=== PATIENT | female | born 1980 | race Caucasian/White ===

== ENCOUNTER → 2018-05-17 | Outpatient (CLI) | payer OTHER ==
--- NOTE | 2018-05-17 20:07 | CONS ---
CONSULTATION DATE OF SERVICE: 05/17/2018 This patient is a 37-year-old lady who has been [facility] for obstructive sleep apnea-hypopnea syndrome. HISTORY OF PRESENT ILLNESS/SLEEP-WAKE EVALUATION: Patient was diagnosed with obstructive sleep apnea about 15 years ago. At that time she was started on treatment with CPAP, but when she moved to [place] from [place] she had to turn in her CPAP unit. At present her sleep schedule on weekdays is from 11 p.m. until 6 a.m. and on weekends from midnight until 7 or 8 a.m. She does have problem with falling asleep. She has a TV set in the bedroom. She usually sleeps on the side position with snoring and multiple awakenings from sleep, up to 5 times, with up to 5 episodes of nocturia. She wakes up with a dry mouth, panic attacks, heartburn, gasping for air, restless legs, sweating, sleeptalking, episodes of choking. In the morning she wakes up tired, has difficulties paying attention, falling asleep during the day, worrying about her sleep. She has problems with concentration, irritability, depression, anxiety, claustrophobia. [place] Sleepiness Scale is significantly increased to 16. No history of hypnagogic hallucinations, sleep paralysis or cataplexy. PAST MEDICAL HISTORY: Positive for: 1. Three heart attacks. 2. Hypertension. 3. Diabetes. 4. in the past. 5. Iron deficiency anemia. 6. Asthma. 7. Hyperlipidemia. 8. Depression. 9. Anxiety. 10.Schizophrenia. 11.Bipolar, type I. 12.Ovarian cyst. PAST SURGICAL HISTORY: 1. Cholecystectomy. 2. Right knee surgery. 3. section. MEDICATIONS: 1. Glimepiride. 2. Clonidine. 3. Montelukast. 4. Ferrous sulfate. 5. Isosorbide. 6. Atorvastatin. 7. Nifedipine. 8. Clopidogrel. 9. Carvedilol. 10.Spironolactone. 11.Ventolin inhaler. 12.Irbesartan. 13.Aripiprazole. 14.Citalopram. 15.Prilosec. SOCIAL HISTORY: Positive for smoking for about 6 months; quit 8 years ago. Alcohol consumption none. FAMILY HISTORY: Hypertension, heart problems, hyperlipidemia, asthma, lung problems, sleep apnea, snoring, headaches, cancer, insomnia, acid reflux, ulcers, diabetes, anemia, mental illness, restless legs. REVIEW OF SYSTEMS: Multiple awakenings from sleep, sleepiness during the day. PHYSICAL EXAMINATION: GENERAL: A pleasant lady without distress. VITAL SIGNS: BP on the right arm 177/110, on the left arm 167/103, HR 76, RR 16, height 5 feet 1 inch, weight 221 pounds, body mass index 41.7. Temperature 98.6, oxygen saturation at room air 98%. HEENT: PERRLA, EOMI. Evaluation of oropharynx showed tongue protrudes midline. Low position of soft palate. Mallampati III. NECK: Supple. No JVD. Thyroid is not palpable. Wide neck; 18 inches in circumference. LUNGS: Clear to percussion and to auscultation. Good air exchange. No wheezing or rhonchi. HEART: S1, S2 regular. No murmurs, gallops or rubs. ABDOMEN: Obese. EXTREMITIES: No clubbing or cyanosis. SNAGGER: Awake, alert, and oriented X3. Cranial nerves 2 to 7 intact. There is no fasciculation or atrophy. noted. No focal deficits observed. IMPRESSION: 1. Snoring, awakenings with gasping for air and choking, low position of soft palate, wide neck, excessive daytime sleepiness; obstructive sleep apnea-hypopnea syndrome. 2. Obesity; body mass index 41.7. 3. Coronary artery disease, status post myocardial infarction x3. 4. Hypertension. 5. Diabetes mellitus. 6. Iron deficiency anemia. 7. History of in the past. 8. Asthma. 9. Hyperlipidemia. 10.Ovarian cyst on the left side. 11.History of depression. 12.History of anxiety. 13.History of schizophrenia. 14.History of bipolar, type I. 15.Back problem with degenerative disc disease. 16.Status post cholecystectomy. 17.Status post section. 18.Status post right knee surgery in 1997. PLAN: 1. Polysomnography for evaluation of patient's breathing during sleep. 2. CPAP/BiPAP titration if sleep study confirms obstructive sleep apnea-hypopnea syndrome. 3. Preferable position during sleep on the side. 4. No driving if patient feels any sleepiness. 5. I will see patient for follow up visit to explain results of testing and following plan. Thank you very much for referring this patient for consultation. Sincerely, Jean Marie Patricio MD, PhD, FAASM Diplomat of [employer] [employer] [employer] Set O Type Operator of [facility] [place] MMODL / CHERYL: [id number] /
== END | disposition home or self-care (01) ==
LOC: SLEEP 15:08
PROVIDERS: ATTEND Internal Medicine
DX: G47.33 Obstructive sleep apnea (adult) (pediatric) (principal); E66.9 Obesity, unspecified; I25.10 Atherosclerotic heart disease of native coronary artery without angina pectoris; I10 Essential (primary) hypertension; I50.9 Heart failure, unspecified; E11.9 Type 2 diabetes mellitus without complications; J45.909 Unspecified asthma, uncomplicated; E78.5 Hyperlipidemia, unspecified; F41.9 Anxiety disorder, unspecified; F32.9 Major depressive disorder, single episode, unspecified; F20.9 Schizophrenia, unspecified; I25.2 Old myocardial infarction; N83.202 Unspecified ovarian cyst, left side; F31.9 Bipolar disorder, unspecified; M54.89 Other dorsalgia; Z90.89 Acquired absence of other organs; Z98.890 Other specified postprocedural states; Z99.89 Dependence on other enabling machines and devices; Z79.01 Long term (current) use of anticoagulants; Z79.899 Other long term (current) drug therapy; Z87.891 Personal history of nicotine dependence
CPT/HCPCS: 99211

== ENCOUNTER → 2018-07-30 | Outpatient (CLI) | payer OTHER ==
--- NOTE | 2018-07-31 14:45 | MM ---
Reason for exam: screening (asymptomatic). History: Patient history of other cancer. Family history of breast cancer in maternal grandmother and breast cancer in paternal aunt. Physical Findings: A clinical breast exam by your physician is recommended on an annual basis and results should be correlated with mammographic findings. MG Screening Mammo w CAD Bilateral CC and MLO view(s) were taken. No prior studies available for comparison. The breast tissue is heterogeneously dense. This may lower the sensitivity of mammography. No suspicious abnormality. Medial far posterior depth right asymmetry resolves on XCCL. ASSESSMENT: Benign, BI-RAD 2 RECOMMENDATION: Routine screening mammogram of both breasts in 1 year.
== END | disposition home or self-care (01) ==
LOC: RADMAMWWP 12:34
PROVIDERS: ATTEND Internal Medicine Hematology & Oncology
DX: Z12.31 Encounter for screening mammogram for malignant neoplasm of breast (principal); Z80.3 Family history of malignant neoplasm of breast
CPT/HCPCS: 77067

== ENCOUNTER 2018-08-02 16:51 | Inpatient (IN) | payer OTHER ==
[2018-08-02] MEDS ORDERED: HEPARIN SODIUM,PORCINE 5,000 UNIT/ML 1 ML VIAL IV ONE (17:27)
[2018-08-02] MEDS ORDERED: HEPARIN SODIUM,PORCINE 5,000 UNIT/ML 1 ML VIAL IV PRN (17:27)
[2018-08-02] MEDS ORDERED: ATORVASTATIN 80 MG TAB PO STA (17:28)
[2018-08-02] MEDS ORDERED: CLOPIDOGREL 75 MG TAB PO STA (17:28)
[2018-08-02] MEDS ORDERED: HEPARIN SOD,PORK IN 0.45% NACL 25,000 UNIT in 0.45% NACL 1 250ML.BAG IV SCH (17:30)
[2018-08-02 17:44] LABS: Basophils % (A) 0 %; Eosinophils # (A) 0.1 k/uL (0-0.7); Eosinophils % (A) 1 %; HCT 36.6 % (34.0-46.0); HGB 13.1 gm/dL (11.4-16.0); Lymphocytes # (A) 1.4 k/uL (1.0-4.8); Lymphocytes % (A) 15 %; MCHC 35.8 g/dL (31.0-37.0); MCV 89.4 fL (80.0-100.0); Mean Platelet Volume 7.4; Monocytes # (A) 0.4 k/uL (0-1.0); Monocytes % (A) 4 %; Neutrophils # (A) 7.7 k/uL (1.3-7.7); Neutrophils % (A) 78 %; Platelet Count 183 k/uL (150-450); RBC 4.09 m/uL (3.80-5.40); WBC 9.8 k/uL (3.8-10.6)
[2018-08-02] MEDS ORDERED: NITROGLYCERIN OINT 1 INCH/GM PACKET TOPICAL STA (17:46)
--- NOTE | 2018-08-02 17:46 | ED ---
General Adult HPI - General Chief complaint: Chest Pain Stated complaint: chest pain Time Seen by Provider: 08/02/18 16:52 Source: patient, EMS Mode of arrival: EMS Limitations: no limitations - History of Present Illness Initial comments: Dictation was produced using [employer] dictation software. please excuse any grammatical, word or spelling errors. Chief Complaint: 37-year-old field past medical history of leukemia, diabetes, coronary artery disease and asthma presents with chest pain. History of Present Illness: Patient is a 37-year-old female with multiple comorbidities presents today with chest pain that started yesterday. She states that the chest pain is a pressure-like sensation with ratio radiation down the left upper extremity. She tried taking some Tylenol with no resolution of symptoms. She is a history of myocardial infarction. Her last [place] was in 1998. She denies any history of cardiac stents. She does report diaphoresis and nausea. Denies any cough and constitutional symptoms. Patient hasn't been noncompliant with her medications refilled today. The ROS documented in this emergency department record has been reviewed and confirmed by me. Those systems with pertinent positive or negative responses have been documented in the HPI. All other systems are other negative and/or noncontributory. PHYSICAL EXAM: General Impression: Alert and oriented x3, acute distress secondary to pain HEENT: Normocephalic atraumatic, extra-ocular movements intact, pupils equal and reactive to light bilaterally, mucous membranes moist. Cardiovascular: Heart regular rate and rhythm, S1&S2 audible, no murmurs, rubs or gallops Chest: Lungs clear to auscultation bilaterally, no rhonchi, no wheeze, no rales Abdomen: Bowel sounds present, abdomen soft, non-tender, non-distended, no organ omegaly Musculoskeletal: Pulses present and equal in all extremities, no peripheral edema Motor: no focal deficits noted Neurological: CN II-XII grossly intact, no focal motor or sensory deficits noted Skin: Intact with no visualized rashes ED course: 37-year-old female with chief complaint of chest pain and she does have a history of myocardial infarction coronary artery disease. Last [place] was in 1998 at [facility]. Works having had multiple cardiac catheterizations. Vital signs upon arrival are within acceptable limits. EKG is concerning for acute myocardial infarction. Code STEMI was activated. She was evaluated at bedside by Dr. Everett. Patient given heparin bolus and started on an infusion. She is given 300 mg of Plavix because she has an ALLERGY to aspirin. Cardiology plan was to take patient to cardiac [facility] for urgent cardiac catheterization. EKG interpretation: Ventricular rate 88, normal sinus rhythm, AZ interval 114, QS 86, QTC 522. No AZ prolongation, prolonged QT, ST elevations in inferior leads with Versed with depressions in the high lateral leads. Consistent with acute WV - Related Data Home Medications Medication Instructions Recorded Confirmed Albuterol Inhaler [Ventolin Hfa 1 - 2 puff INHALATION RT-QID PRN 07/11/18 08/02/18 Inhaler] Alogliptin Benzoate [Alogliptin] 25 mg PO DAILY 07/11/18 08/02/18 Atorvastatin [Lipitor] 40 mg PO HS 07/11/18 08/02/18 Carvedilol 25 mg PO BID 07/11/18 08/02/18 Clopidogrel [Plavix] 75 mg PO DAILY 07/11/18 08/02/18 Escitalopram [Lexapro] 10 mg PO DAILY 07/11/18 08/02/18 Ferrous Sulfate [Iron] 325 mg PO DAILY 07/11/18 08/02/18 Irbesartan 300 mg PO DAILY@1700 07/11/18 08/02/18 Isosorbide Mononitrate [Isosorbide 30 mg PO DAILY 07/11/18 08/02/18 Mononitrate ER] Montelukast [Singulair] 10 mg PO HS 07/11/18 08/02/18 NIFEdipine [NIFEdipine ER] 30 mg PO HS 07/11/18 08/02/18 Omeprazole [PriLOSEC] 20 mg PO BID 07/11/18 08/02/18 ARIPiprazole [Abilify] 5 mg PO HS 08/02/18 08/02/18 Ergocalciferol (Vitamin D2) 50,000 unit PO Q7D 08/02/18 08/02/18 [Vitamin D2] Pioglitazone HCl [Actos] 15 mg PO DAILY 08/02/18 08/02/18 Triamterene-Hctz 37.5-25Mg 1 cap PO DAILY 08/02/18 08/02/18 [Dyazide 37.5-25 Capsule] cloNIDine HCL [Catapres] 0.2 mg PO TID 08/02/18 08/02/18 metFORMIN HCL [Glucophage] 1,000 mg PO BID 08/02/18 08/02/18 Allergies Allergy/AdvReac Type Severity Reaction Status Date / Time cephalexin [From Keflex] AdvReac Rash/Hives Verified 08/02/18 17:11 Iodine and Iodide Containing AdvReac Rash/Hives Verified 08/02/18 17:11 Produc Penicillins AdvReac Rash/Hives Verified 08/02/18 17:11 tramadol AdvReac Rash/Hives Verified 08/02/18 17:11 Review of Systems ROS Statement: Those systems with pertinent positive or pertinent negative responses have been documented in the HPI. ROS Other: All systems not noted in ROS Statement are negative. Past Medical History Past Medical History: Asthma, Coronary Artery Disease (CAD), Diabetes Mellitus, GERD/Reflux, Hyperlipidemia, Hypertension History of Any Multi-Drug Resistant Organisms: None Reported Past Surgical History: Section, Joint Replacement Past Anesthesia/Blood Transfusion Reactions: No Reported Reaction Past Psychological History: Anxiety, Bipolar, Depression, Schizophrenia Smoking Status: Former smoker General Exam Limitations: no limitations Course Vital Signs 08/02/18 08/02/18 08/02/18 16:56 17:00 17:02 Temperature 98.2 F Pulse Rate 80 76 Pulse Rate [ 89 Electronic Scale Assembler And Tester ] Respiratory 16 18 Rate Blood Pressure 161/99 184/110 O2 Sat by Pulse 97 97 Oximetry Medical Decision Making - Lab Data Result diagrams: 08/02/18 17:25 08/02/18 17:25 Lab Results 08/02/18 08/02/18 08/02/18 Range/Units 17:25 17:25 17:25 WBC 9.8 (3.8-10.6) k/uL RBC 4.09 (3.80-5.40) m/uL Hgb 13.1 (11.4-16.0) gm/dL Hct 36.6 (34.0-46.0) % MCV 89.4 (80.0-100.0) fL MCH 32.0 (25.0-35.0) pg MCHC 35.8 (31.0-37.0) g/dL RDW 14.0 (11.5-15.5) % Plt Count 183 (150-450) k/uL Neutrophils % 78 % Lymphocytes % 15 % Monocytes % 4 % Eosinophils % 1 % Basophils % 0 % Neutrophils # 7.7 (1.3-7.7) k/uL Lymphocytes # 1.4 (1.0-4.8) k/uL Monocytes # 0.4 (0-1.0) k/uL Eosinophils # 0.1 (0-0.7) k/uL Basophils # 0.0 (0-0.2) k/uL PT 10.1 (9.0-12.0) sec INR 0.9 (<1.2) APTT 22.8 (22.0-30.0) sec Sodium 137 (137-145) mmol/L Potassium 4.1 (3.5-5.1) mmol/L Chloride 99 (98-107) mmol/L Carbon Dioxide 26 (22-30) mmol/L Anion Gap 12 mmol/L BUN 19 H (7-17) mg/dL Creatinine 0.82 (0.52-1.04) mg/dL Est GFR (CKD-EPI)AfAm >90 (>60 ml/min/1.73 sqM) Est GFR (CKD-EPI)NonAf >90 (>60 ml/min/1.73 sqM) Glucose 227 H (74-99) mg/dL Calcium 9.7 (8.4-10.2) mg/dL Total Bilirubin 0.5 (0.2-1.3) mg/dL AST 94 H (14-36) U/L ALT 58 H (9-52) U/L Alkaline Phosphatase 66 (38-126) U/L Total Protein 7.0 (6.3-8.2) g/dL Albumin 4.3 (3.5-5.0) g/dL Disposition Clinical Impression: STEMI (ST elevation myocardial infarction) Disposition: ADMITTED IP TO THIS HOSP Condition: Critical Referrals: Odell Sena MD [Primary Care Provider] - 1-2 days Decision Time: 17:58
[2018-08-02 17:48] LABS: ALT 58 U/L (9-52); AST 94 U/L (14-36); Albumin 4.3 g/dL (3.5-5.0); Alkaline Phosphatase 66 U/L (38-126); Anion Gap 12 mmol/L; Blood Urea Nitrogen 19 mg/dL (7-17); Calcium 9.7 mg/dL (8.4-10.2); Carbon Dioxide 26 mmol/L (22-30); Chloride 99 mmol/L (98-107); Glucose 227 mg/dL (74-99); Potassium 4.1 mmol/L (3.5-5.1); Sodium 137 mmol/L (137-145); Total Bilirubin 0.5 mg/dL (0.2-1.3)
[2018-08-02 17:56] LABS: INR 0.9 (<1.2); Partial Thromboplastin Time 22.8 sec (22.0-30.0); Prothrombin Time 10.1 sec (9.0-12.0)
[2018-08-02] MEDS ORDERED: NALOXONE 0.4 MG/ML 1 ML VIAL IV PRN (17:56)
[2018-08-02] MEDS ORDERED: LIDOCAINE 1% INJ 10MG/ML (20 ML MDV) ONE (18:03)
[2018-08-02] MEDS ORDERED: VERAPAMIL 2.5 MG/ML 2 ML AMP ONE (18:03)
[2018-08-02] MEDS ORDERED: methylPREDNISolone SOD SUCCI 125 MG/2 ML VIAL ONE (18:03)
[2018-08-02] MEDS ORDERED: diphenhydrAMINE 50 MG/ML 1 ML VIAL ONE (18:03)
[2018-08-02] MEDS ORDERED: HEPARIN SODIUM 1,000 UN/ML (10ML VL) ONE (18:03)
[2018-08-02] MEDS ORDERED: fentaNYL (PF) 50 MCG/ML 2 ML AMP ONE (18:03)
[2018-08-02] MEDS ORDERED: SODIUM CHLORIDE 0.9% 1,000 ML IV ONE (18:06)
[2018-08-02] MEDS ORDERED: CLOPIDOGREL 75 MG TAB ONE (18:11)
[2018-08-02] MEDS ORDERED: methylPREDNISolone SOD SUCCI 125 MG/2 ML VIAL IV ONE (18:13)
[2018-08-02] MEDS ORDERED: fentaNYL (PF) 50 MCG/ML 2 ML AMP IVP ONE (18:13)
[2018-08-02 18:14] LABS: Creatine Kinase MB 14.4 ng/mL (0.0-2.4)
[2018-08-02] MEDS ORDERED: CLOPIDOGREL 75 MG TAB PO ONE (18:14)
[2018-08-02] MEDS ORDERED: LIDOCAINE 1% INJ 10MG/ML (20 ML MDV) SQ ONE (18:14)
[2018-08-02] MEDS ORDERED: fentaNYL (PF) 50 MCG/ML 2 ML AMP IV ONE (18:14)
[2018-08-02] MEDS ORDERED: VERAPAMIL SYRINGE (5 MG/10 ML) INTRAARTER ONE (18:16)
[2018-08-02 18:21] LABS: Troponin I 11.6 ng/mL (0.000-0.034)
[2018-08-02] MEDS ORDERED: BIVALIRUDIN BOLUS 250 MG/50 ML IV ONE (18:23)
[2018-08-02] MEDS ORDERED: BIVALIRUDIN 250 MG in SODIUM CHLORIDE 0.9% 50 ML IV ONE ×2 (18:23→18:49)
[2018-08-02] MEDS ORDERED: NITROGLYCERIN SL TABS 0.4 MG TAB SUBLINGUAL ONE ×2 (18:27→18:28)
[2018-08-02] MEDS ORDERED: NITROGLYCERIN 1000MCG/10ML SYRINGE INTRACORON ONE (18:30)
[2018-08-02] MEDS ORDERED: ASPIRIN 81 MG PO ONE (18:37)
[2018-08-02] MEDS ORDERED: IOPAMIDOL-370 125ML BTL INJ ONE (18:37)
[2018-08-02] MEDS ORDERED: ASPIRIN 81 MG ONE (18:37)
--- NOTE | 2018-08-02 18:38 | XR ---
EXAMINATION TYPE: XR chest 1V DATE OF EXAM: 08/02/2018 COMPARISON: NONE HISTORY: Chest pain TECHNIQUE: Single frontal view of the chest is obtained. FINDINGS: There is no heart failure nor confluent pneumonic infiltrate. There is coarse density in t he right lower lobe. IMPRESSION: Minimal infiltrate right lower lobe. No heart failure.
[2018-08-02] MEDS ORDERED: IOPAMIDOL-370 100ML BTL INJ ONE ×2 (18:47→18:58)
[2018-08-02] MEDS ORDERED: ATROPINE SULFATE 0.1 MG/ML 10ML SYRINGE IV PRN (19:23)
[2018-08-02] MEDS ORDERED: RX INFO: IV CONTRAST WAS GIVEN 1 EACH MISC MISCELLANE PRN (19:23)
[2018-08-02] MEDS ORDERED: ZOLPIDEM 5 MG TAB PO PRN (19:23)
[2018-08-02] MEDS ORDERED: MAG HYDROX/AL HYDROX/SIMETH 30 ML CUP PO PRN (19:23)
[2018-08-02] MEDS ORDERED: NITROGLYCERIN SL TABS 0.4 MG TAB SUBLINGUAL PRN (19:23)
[2018-08-02] MEDS ORDERED: SODIUM CHLORIDE 0.9% 1,000 ML IV SCH (19:30)
[2018-08-02 19:42] LABS: Glucose,Whole Blood 215 mg/dL (75-99)
[2018-08-02] MEDS: MONTELUKAST 10 MG TAB PO SCH (21:43)
[2018-08-02] MEDS: ARIPiprazole 5 MG TAB PO SCH (21:43)
[2018-08-02] MEDS: PANTOPRAZOLE 40 MG TABLET PO SCH (21:43)
[2018-08-02] MEDS: NIFEdipine XL 30 MG TAB.ER.24 PO SCH (21:43)
[2018-08-02] MEDS: CARVEDILOL 12.5 MG TAB PO SCH (21:48)
[2018-08-02] MEDS: cloNIDine HCL 0.2 MG TAB PO SCH (22:30)
[2018-08-02] MEDS: hydrALAZINE HCL 25 MG TAB PO SCH (22:30)
--- NOTE | 2018-08-02 22:34 | CONS ---
CONSULTATION ATTENDING DOCTOR: Dr. Quintanilla HISTORY OF PRESENT ILLNESS: Mrs. Franklin is a 37-year-old female with known history of hypertension, hyperlipidemia, diabetes mellitus, who presented to the emergency room with symptoms of chest discomfort. Her discomfort started yesterday and persisted. Subsequently to that, she was scheduled to undergo a sleep study today and while there she complained of the chest pain and was referred to the emergency room. In the emergency room she was found to have a T-wave inversion in the anterolateral leads with mild ST elevation in lead 3. The patient has underwent cardiac catheterization in November 2016 in [facility] and at that time had nonobstructive disease. She had no pain until yesterday. She has no dizziness or palpitation. No syncope. No PND nor orthopnea. She has no peripheral edema. She has been followed on a regular basis by Dr. Davila. She has a history of hypertension, hyperlipidemia, and diabetes. She has stopped smoking over 8 years ago her. MEDICATION: Her medications at home include Glucophage 1 gram twice a day, Catapres 0.2 mg 3 times a day, Dyazide once a day, Actos 15 mg daily, Prilosec, nifedipine 30 mg daily, Singulair 10 mg daily, isosorbide mononitrate 30 mg daily, Avapro 300 mg daily, iron, Lexapro 10 mg daily, vitamin D, Plavix 75 mg daily, carvedilol 25 mg twice a day, Lipitor 40 mg daily Ventolin and Abilify. REVIEW OF SYSTEMS: RESPIRATORY system: She has dyspnea on exertion. No recent wheezing. She has mild cough. GI system: No recent GI bleeding. No peptic ulcer disease. system: No dysuria or hematuria. NERVOUS SYSTEM: No stroke or seizure. PHYSICAL EXAMINATION: A 37-year-old female, alert, oriented, in no apparent distress. Blood pressure running in the 160-200 with a heart rate in the 80s and 90s. HEAD: Normocephalic. Eyes sclerae anicteric. NECK: Good upstroke. No bruit. No jugular venous distention. LUNGS: Clear to auscultation. HEART: Regular rhythm S1, S2. No S3 with a systolic murmur. No diastolic murmur. No rub. ABDOMEN: Soft, obese, nontender. Positive bowel sounds. No megaly. EXTREMITIES: No edema. Intact distal pulses. LAB DATA: Lab data revealed a troponin of 11.6, blood sugar 227, BUN and creatinine 19 and 0.82. AST of 94, ALT of 58, hemoglobin of 13.1, potassium 4.1. EKG revealed sinus mechanism with a T-wave inversion in the anterolateral leads with [address]-segment elevation in Lead 3. Chest x-ray shows questionable infiltrate. IMPRESSION: 1. Acute myocardial infarction in a patient with multiple coronary risk factors and mild nonobstructive coronary disease in November 2016. 2. Hypertension. 3. Hyperlipidemia. 4. Diabetes mellitus. RECOMMENDATION: In view of findings and presentation, recommend proceeding with coronary angiography. The procedure as well as risks and complications were discussed with the patient who is in full understanding and agreement. [email or web address] / IJN: [id number] /
--- NOTE | 2018-08-02 22:37 | CC ---
CARDIAC CATHETERIZATION REPORT HISTORY: Mrs. Franklin is a 37-year-old female with known history of hypertension, hyperlipidemia, diabetes mellitus, who presented with symptoms of chest discomfort and EKG changes. In view of that, recommendation made regarding cardiac catheterization. The procedure as well as risks and complication were discussed with the patient who is in full understanding and agreement. PROCEDURE: Patient was brought to the mine laborer in a fasting semisedated state, after receiving fentanyl and Benadryl and achieving moderate conscious sedated state. Using Xylocaine anesthesia and Seldinger technique a 6-Kittitian sheath was introduced in the right radial artery. Selective right and left coronary angiography performed using 5-Kittitian 3 and half bend right Romelia catheter and a 6-Kittitian 3 and half bend FR guiding catheter. Images of the coronary arteries were obtained. Following that, angioplasty and stenting was performed. Following that a 5-Kittitian tight pigtail catheter was introduced in the left ventricle and a 30 degree KAY view of the left ventricle was obtained. Following that, catheter and sheath were removed. Hemostasis was obtained with deployment of a TR band. There was no immediate complication. Patient is returned to her room in stable condition. Of note, the patient received Angiomax per protocol as well as oral loading dose of clopidogrel. FINDINGS: LEFT MAIN: This is a short size vessel bifurcating left circumflex, left anterior descending artery, left main coronary artery has no evidence of high-grade stenosis. LEFT ANTERIOR DESCENDING ARTERY: This is a large-sized vessel reaching towards the apex with a wraparound apex segment. In the proximal segment of the LAD at the takeoff of the first diagonal branch, there is a 30% plaque. The ostium of the diagonal branch has a 99% stenosis with another plaque of about 80% in the mid segment. Beyond that, the vessel is not very large in caliber. The LAD in the mid segment has a 99% stenosis. In the distal segment, diffuse intimal disease of 30-40 percent. LEFT CIRCUMFLEX: This is a nondominant vessel, large in caliber giving rise to 3 obtuse marginal branches. The first obtuse marginal branch has a 70% plaque at the bifurcation of the second and third obtuse marginal branch there is 95% stenosis. The rest of the vessel has no high-grade stenosis. RIGHT CORONARY ARTERY : This is a large dominant vessel bifurcating into PDA and posterolateral segment and branches. The right coronary artery in mid segment has a 20% plaque. The rest of the vessel has no high-grade stenosis. LEFT VENTRICULOGRAM: Left ventriculogram was performed in 30 degree KAY view and revealed severe hypokinesis. The ejection fraction is estimated at 45%. There was arrhythmia induced mitral regurgitation. HEMODYNAMICS: There was no gradient across the aortic valve. The left ventricle end-diastolic pressure was 20 to 24 mmHg. CONCLUSION: 1. Critical stenosis involving the mid LAD. 2. Significant disease in the ostium of the first diagonal branch. 3. Severe disease in the distal left circumflex with significant disease in the first obtuse marginal branch. 4. Mild disease in the right coronary artery. 5. Moderate to severely impaired left ventricular systolic function. RECOMMENDATIONS: In view of findings and anatomy, I have recommend proceeding with angioplasty and stenting. The procedures as well as risks and complication were discussed with the patient who is in full understanding and agreement. URBANO / CHERYL: [id number] /
--- NOTE | 2018-08-02 22:42 | PTCA ---
PERCUTANEOUSTRANS CORORONARY ANGIOGRAPHY Mrs. Franklin is a 37-year-old female with a known history of hypertension, hyperlipidemia and diabetes mellitus who presented with symptoms of chest discomfort and EKG changes consistent with an acute myocardial infarction. She underwent cardiac catheterization and was found to have critical stenosis involving the LAD and left circumflex. In view of that, recommendation was made regarding angioplasty and stenting. The procedure, its risks and complication were discussed with the patient, who was in full understanding and agreement. PROCEDURE DESCRIPTION: Using the 6-Kittitian FL3.5 guiding catheter and after obtaining images of the LAD, a 0.014 balanced medium-weight J-wire was advanced across the lesion and positioned distal in the LAD. Subsequently a 2.5 x 12 mm Trek balloon was advanced and one inflation at 8 atmospheres was done. Following that an Averill catheter was advanced and one run was done. Following that the balloon was removed and a 3.0x 23 mm Xience Anu stent was deployed and postdilated at 16 atmospheres. After the last inflation, after appropriate wait, the balloon and the guidewire were withdrawn back into the guiding catheter. Images were obtained and repeated. Those images reveal stable successful stenting. At that point, the wire was introduced in the distal left circumflex and a 2.5 x 12 mm balloon was advanced and one inflation was done at 8 atmospheres. Following that, the balloon was removed and a 2.75 x 15 mm Xience Anu stent was deployed and post dilated at 16 atmospheres. After the last inflation, after appropriate wait, the balloon and the guidewire were withdrawn back into the guiding catheter. Images were obtained and repeated. Those images revealed stable images. The importance of dual antiplatelet treatment was discussed with the patient, who is in full understanding and agreement. She will be treated medically at this point in regard to her first obtuse marginal branch and diagonal branch lesions. Duration of procedure was 52 minutes. MMODL / IJN: [id number] / MTDShivani
[2018-08-03 07:09] LABS: Glucose,Whole Blood 384 mg/dL (75-99)
[2018-08-03 07:37] LABS: Anion Gap 14 mmol/L; Blood Urea Nitrogen 21 mg/dL (7-17); Calcium 9.5 mg/dL (8.4-10.2); Carbon Dioxide 20 mmol/L (22-30); Chloride 102 mmol/L (98-107); Cholesterol 151 mg/dL (<200); Glucose 361 mg/dL (74-99); HDL Cholesterol 41 mg/dL (40-60); LDL Cholesterol,Calculated 86 mg/dL (0-99); Potassium 4.4 mmol/L (3.5-5.1); Sodium 136 mmol/L (137-145); Triglycerides 121 mg/dL (<150)
[2018-08-03] MEDS: INSULIN ASPART (NovoLOG) 100 UNIT/ML VIAL SQ SCH ×4 (07:41→21:09)
--- NOTE | 2018-08-03 08:25 | PN ---
PROGRESS NOTE Mrs. Franklin is a 37-year-old female with a history of hypertension, hyperlipidemia, and diabetes mellitus who presented with symptoms of chest discomfort, underwent cardiac catheterization and was found to have a subtotally occluded mid LAD, severe stenosis in the ostium of the first diagonal branch as well as severe stenosis in the distal left circumflex and moderate significant disease in the first obtuse marginal branch. She underwent stenting of her LAD and her left circumflex. She is doing well this morning. She has no chest pain. Hemodynamically, she is stable. She is denying any chest pain. No dizziness. No palpitation. She denies any nausea or vomiting. She continues to be at this time on aspirin 81 mg daily, Lipitor 80 mg daily, carvedilol 25 mg twice a day, Catapres 0.2 mg 3 times a day, Plavix 75 mg daily, hydralazine 25 mg 3 times a day, isosorbide mononitrate 30 mg daily, Tradjenta, Cozaar 100 mg daily, Singulair 10 mg daily, nifedipine 30 mg daily, Protonix, Actos 15 mg daily, and Dyazide. PHYSICAL EXAMINATION: Blood pressure 127/60 with the heart rate in the 90s. LUNGS: Clear. HEART: Regular rate and rhythm. S1, S2. No S3 with systolic ejection murmur. No diastolic murmur. No rub. ABDOMEN: Soft, nontender. EXTREMITIES: No edema. Right radial pulse intact. LAB DATA: Lab data revealed peak troponin 35.5. Her EKG shows evidence of anterior wall myocardial infarction. IMPRESSION: 1. Status post multivessel angioplasty and stenting in the setting of an acute myocardial infarction. 2. Ischemic cardiomyopathy. 3. Hypertension. 4. Hyperlipidemia. 5. Diabetes mellitus. RECOMMENDATION: From the cardiac standpoint, we will continue present therapy. Increase her level of activity. Obtain echocardiogram with Doppler. If she is stable, she should be able to be transferred to the telemetry floor today. Increase her level of activity and depending on her progress, further recommendation will be made. MMODL / IJN: [id number] /
[2018-08-03] MEDS: CARVEDILOL 12.5 MG TAB PO SCH ×2 (09:22→19:19)
[2018-08-03] MEDS: ISOSORBIDE MONONITRATE ER 30 MG TAB.ER.24H PO SCH (09:22)
[2018-08-03] MEDS: hydrALAZINE HCL 25 MG TAB PO SCH ×3 (09:22→21:09)
[2018-08-03] MEDS: cloNIDine HCL 0.2 MG TAB PO SCH ×3 (09:22→21:09)
[2018-08-03] MEDS: TRIAMTERENE-HCTZ 37.5-25MG 1 EACH CAP PO SCH (09:22)
[2018-08-03] MEDS: PANTOPRAZOLE 40 MG TABLET PO SCH ×2 (09:22→16:41)
[2018-08-03] MEDS: ESCITALOPRAM 10 MG TAB PO SCH (09:22)
[2018-08-03] MEDS: PIOGLITAZONE 15 MG TAB PO SCH (10:09)
[2018-08-03] MEDS: ASPIRIN 81 MG PO SCH (10:10)
[2018-08-03] MEDS: LINAGLIPTIN 5 MG TABLET PO SCH (10:12)
[2018-08-03] MEDS ORDERED: Magnesium Replacement Protocol 1 EACH MISC MISCELLANE PRN (10:24)
--- NOTE | 2018-08-03 10:55 | ECHOF ---
Referral Reason: MEASUREMENTS -------- HEIGHT: 154.9 cm WEIGHT: 106.6 kg BP: 100/66 RVIDd: 1.7 cm (< 3.3) IVSd: 1.5 cm (0.6 - 1.1) LVIDd: 4.1 cm (3.9 - 5.3) LVPWd: 1.6 cm (0.6 - 1.1) IVSs: 2.0 cm LVIDs: 2.9 cm LVPWs: 1.7 cm LAESV Index (A-L): 25.81 ml/m IVSd: 1.6 cm (0.6 - 1.1) LVIDd: 4.4 cm (3.9 - 5.3) LVPWd: 1.8 cm (0.6 - 1.1) IVSs: 1.8 cm LVIDs: 2.9 cm LVPWs: 1.9 cm EDV(Teich): 86 ml ESV(Teich): 33 ml EF(Teich): 62 % %FS: 33 % SV(Teich): 54 ml Ao Diam: 2.7 cm (2.0 - 3.7) AV Cusp: 1.9 cm (1.5 - 2.6) LA Diam: 3.6 cm (2.7 - 3.8) MV EXCURSION: 8.330 mm (> 18.000) MV EF SLOPE: 62 mm/s (70 - 150) EPSS: 0.6 cm MV E Terrell: 0.82 m/s MV DecT: 202 ms MV A Terrell: 0.83 m/s MV E/A Ratio: 0.99 RAP: 5.00 mmHg RVSP: 11.51 mmHg FINDINGS -------- Sinus rhythm. This was a technically difficult study with suboptimal views. The cavity size is decreased. There is severe concentric left ventricular hypertrophy. Overall le ft ventricular systolic function is mildly impaired with, an EF between 45 - 50 %. Apical septum LV wall motion is hypokinetic. [place] Hypokinesis. The right ventricle is normal in size. The global wall thickness of the right ventricle is mildly e nlarged. Normal LA size by volume 22+/-6 ml/m2. The right atrial size is normal. Lumason used Interatrial and interventricular septum intact. The aortic valve is trileaflet and appears structurally normal. There is trace mitral regurgitation. Trace tricuspid regurgitation present. There is no evidence of pulmonary hypertension. The right ventricular systolic pressure, as measured by Doppler, is 11.51mmHg. Pulmonic valve appears structurally normal. The aortic root size is normal. IVC Not well visulized. There is no pericardial effusion. CONCLUSIONS -------- 1. Sinus rhythm. 2. This was a technically difficult study with suboptimal views. 3. The cavity size is decreased. 4. There is severe concentric left ventricular hypertrophy. 5. Overall left ventricular systolic function is mildly impaired with, an EF between 45 - 50 %. 6. Apical septum LV wall motion is hypokinetic. 7. [place] Hypokinesis. 8. The right ventricle is normal in size. 9. The global wall thickness of the right ventricle is mildly enlarged. 10. Normal LA size by volume 22+/-6 ml/m2. 11. The right atrial size is normal. 12. Lumason used 13. Interatrial and interventricular septum intact. 14. The aortic valve is trileaflet and appears structurally normal. 15. There is trace mitral regurgitation. 16. Trace tricuspid regurgitation present. 17. There is no evidence of pulmonary hypertension. 18. The right ventricular systolic pressure, as measured by Doppler, is 11.51mmHg. 19. Pulmonic valve appears structurally normal. 20. The aortic root size is normal. 21. IVC Not well visulized. 22. There is no pericardial effusion. COFFEE BLENDER: Yanira Andrews [facility]
[2018-08-03] MEDS: MAGNESIUM SULFATE-D5W PMX 1 GM in DEXTROSE/WATER 1 100ML.BAG IVPB SCH ×3 (11:16→13:39)
[2018-08-03 12:12] LABS: Glucose,Whole Blood 257 mg/dL (75-99)
[2018-08-03] MEDS: CLOPIDOGREL 75 MG TAB PO SCH (12:23)
[2018-08-03 13:08] VITALS: BMI 44.4
[2018-08-03 17:25] LABS: Glucose,Whole Blood 216 mg/dL (75-99)
[2018-08-03] MEDS: LOSARTAN 50 MG TAB PO SCH (17:27)
--- NOTE | 2018-08-03 20:24 | HP ---
HISTORY AND PHYSICAL CHIEF COMPLAINT: Chest pain, low blood pressure. HISTORY OF PRESENT ILLNESS: This is another admission for this 37-year-old female. She was not feeling well for 2 or 3 days. She went to the sleep lab and they apparently found her blood pressure to be very low and told her to come to the emergency room. According to the emergency room note, she also was having chest discomfort, aching down the left arm and some nausea and diaphoresis. She was found to have acute MD, and was taken to the [facility] and had 2 stents. REVIEW OF SYSTEMS: She has had no focal neurologic deficits, confusion, problems with vision or hearing, cough, hemoptysis, murmurs, rheumatic fever, abdominal pain, nausea, vomiting, hematemesis, melena, hematochezia, jaundice, cirrhosis, renal failure, dysuria, frequency, etc. She is diabetic. Past medical history, family history, and personal and social histories reveal that she is on: 1. Albuterol. 2. Alogliptin. 3. Atorvastatin. 4. Carvedilol. 5. Clopidogrel. 6. Ferrous sulfate. 7. Escitalopram. 8. Irbesartan. 9. Isordil. 10.Montelukast. 11.Nifedipine. 12.Omeprazole. 13.Aripiprazole. 14.Vitamin D. 15.Pioglitazone. 16.Triamterene. 17.Hydrochlorothiazide. 18.Clonidine. 19.Metformin. ALLERGIES: 1. CEPHALOSPORINS. 2. IODINE. 3. PENICILLIN. 4. TRAMADOL. The remainder of her history is unremarkable. Laboratory studies in the ER revealed a blood sugar of 227 and slight elevation of her liver function studies. PHYSICAL EXAMINATION: Blood pressure 161/99 with pulse of 80, respirations 16. She is afebrile. In general she appeared to be heavyset and in no acute distress. Skin color was normal. Skin was warm and dry. Lymph nodes were not enlarged. Head, ears, eyes, nose, mouth and throat were normal. Neck veins could not be assessed. Carotids were normal. Chest was clear. Cardiac exam demonstrated normal sinus rhythm and no murmurs or extra sounds. Abdomen was soft and nontender without masses. Extremities were normal. Neurologically she was intact. She is admitted to the hospital with the diagnoses: 1. Acute myocardial infarction. 2. Coronary artery disease. 3. Previous myocardial infarction. 4. Hypertension. 5. [id number] diabetes mellitus. PLAN: 1. Follow with Cardiology. 2. Ensure adequate diabetic management. 3. Instruct in losing weight and increasing exercise. MMELIZABETHL / IJN: [id number] /
--- NOTE | 2018-08-03 20:32 | PN ---
PROGRESS NOTE DATE OF SERVICE: 08/03/2018 CHIEF COMPLAINT: Status post acute CT. HISTORY OF PRESENT ILLNESS: This lady is doing well. She is up and about and she is not complaining of any chest pain. PHYSICAL EXAMINATION: Her chest is clear. Cardiac exam is normal. Abdomen is soft and nontender. IMPRESSION: 1. Status post acute myocardial infarction. 2. Diabetes mellitus. 3. Hypertension. PLAN: No change in program. Continue to follow with Cardiology. MMODL / IJN: [id number] /
[2018-08-03 21:01] LABS: Glucose,Whole Blood 266 mg/dL (75-99)
[2018-08-03] MEDS: ATORVASTATIN 80 MG TAB PO SCH (21:10)
[2018-08-03] MEDS: NIFEdipine XL 30 MG TAB.ER.24 PO SCH (21:10)
[2018-08-03] MEDS: MONTELUKAST 10 MG TAB PO SCH (21:10)
[2018-08-03] MEDS: ARIPiprazole 5 MG TAB PO SCH (21:54)
[2018-08-04] MEDS: CARVEDILOL 12.5 MG TAB PO SCH ×2 (06:10→17:55)
[2018-08-04 06:11] LABS: Glucose,Whole Blood 392 mg/dL (75-99)
[2018-08-04] MEDS: PANTOPRAZOLE 40 MG TABLET PO SCH ×2 (06:11→17:55)
[2018-08-04] MEDS: INSULIN ASPART (NovoLOG) 100 UNIT/ML VIAL SQ SCH ×4 (06:33→21:55)
[2018-08-04 08:07] LABS: Calcium 9.1 mg/dL (8.4-10.2); Magnesium 1.8 mg/dL (1.6-2.3); Potassium 3.8 mmol/L (3.5-5.1)
[2018-08-04] MEDS: ESCITALOPRAM 10 MG TAB PO SCH (08:50)
[2018-08-04] MEDS: CLOPIDOGREL 75 MG TAB PO SCH (08:50)
[2018-08-04] MEDS: LINAGLIPTIN 5 MG TABLET PO SCH (08:50)
[2018-08-04] MEDS: PIOGLITAZONE 15 MG TAB PO SCH (08:50)
[2018-08-04] MEDS: TRIAMTERENE-HCTZ 37.5-25MG 1 EACH CAP PO SCH (08:51)
[2018-08-04] MEDS: hydrALAZINE HCL 25 MG TAB PO SCH ×3 (08:51→21:54)
[2018-08-04] MEDS: ISOSORBIDE MONONITRATE ER 30 MG TAB.ER.24H PO SCH (08:52)
[2018-08-04] MEDS: ASPIRIN 81 MG PO SCH (09:00)
[2018-08-04] MEDS ORDERED: cloNIDine HCL 0.1 MG TAB PO SCH ×2 (09:00→21:00)
[2018-08-04 11:54] LABS: Glucose,Whole Blood 252 mg/dL (75-99)
--- NOTE | 2018-08-04 14:59 | PN ---
PROGRESS NOTE Mrs. Franklin is a 37-year-old female who presented with a myocardial infarction, underwent stenting of the LAD and the left circumflex. She is feeling well this morning. Her breathing is stable. She denies any chest pain. No dizziness. No palpitation. She denies any nausea. She is in sinus mechanism. Her echocardiogram revealed ejection fraction 45% to 50%. She continues to be at this time on aspirin once a day, Lipitor 80 mg daily, Coreg 25 mg twice a day, clonidine 0.1 mg 3 times a day, Plavix 75 mg daily, hydralazine 25 mg 3 times a day, isosorbide mononitrate 30 mg daily, Cozaar 100 mg daily and nifedipine 30 mg daily, in addition to Dyazide. PHYSICAL EXAMINATION: Blood pressure 111/58 with a heart rate in the 80s. LUNGS: Clear. HEART: Regular rate and rhythm S1, S2. No S3. No rub appreciated. ABDOMEN: Soft, nontender. EXTREMITIES: No edema. LAB DATA: Revealed BUN and creatinine 34 and 1.13, potassium 3.8. IMPRESSION: 1. Status post myocardial infarction with multivessel stenting. 2. Ischemic cardiomyopathy. 3. Hypertension. 4. Hyperlipidemia. 5. Diabetes mellitus. 6. Worsening renal function. RECOMMENDATION: I will decrease the dose of her clonidine and follow her blood pressure and renal function. If they remain stable, I would expect she should be able to be discharged home tomorrow and follow up as an outpatient with Dr. Davila. MMELIZABETHL / SHERIFN: [id number] /
[2018-08-04] MEDS: LOSARTAN 50 MG TAB PO SCH (16:14)
[2018-08-04 17:03] LABS: Glucose,Whole Blood 254 mg/dL (75-99)
--- NOTE | 2018-08-04 19:57 | PN ---
PROGRESS NOTE CHIEF COMPLAINT: Acute [place]. HISTORY OF PRESENT ILLNESS: This lady is doing well. She is up and about with no problems. She has had no pain, shortness of breath, palpitations, etc. She is doing very well. PHYSICAL EXAM: Chest is clear. Cardiac exam is normal. Abdomen is soft. Extremities are normal. IMPRESSION: 1. Status post acute myocardial infarction. 2. Hypertension which at the present time is slightly low. PLAN: Probably home in the next day or 2. MMODL / IJN: [id number] /
[2018-08-04 21:22] LABS: Glucose,Whole Blood 214 mg/dL (75-99)
[2018-08-04] MEDS: NIFEdipine XL 30 MG TAB.ER.24 PO SCH (21:54)
[2018-08-04] MEDS: ARIPiprazole 5 MG TAB PO SCH (21:54)
[2018-08-04] MEDS: MONTELUKAST 10 MG TAB PO SCH (21:55)
[2018-08-04] MEDS: ATORVASTATIN 80 MG TAB PO SCH (21:55)
[2018-08-05 06:14] LABS: Glucose,Whole Blood 231 mg/dL (75-99)
[2018-08-05] MEDS: CARVEDILOL 12.5 MG TAB PO SCH (06:26)
[2018-08-05] MEDS: INSULIN ASPART (NovoLOG) 100 UNIT/ML VIAL SQ SCH (06:26)
[2018-08-05] MEDS: PANTOPRAZOLE 40 MG TABLET PO SCH (06:27)
[2018-08-05 07:12] LABS: Calcium 9.2 mg/dL (8.4-10.2); Potassium 4.2 mmol/L (3.5-5.1)
[2018-08-05 08:13] VITALS: BP 129/60; PULSE 82; RESP 16; TEMP 97.2
[2018-08-05] MEDS ORDERED: cloNIDine HCL 0.1 MG TAB PO SCH (09:00)
--- NOTE | 2018-08-05 09:04 | PN ---
PROGRESS NOTE Mrs. Franklin 37-year-old female who presented with an acute myocardial infarction, underwent cardiac catheterization, multivessel stenting. She is doing well this morning. Her breathing is stable. She is ambulating without difficulty. She denies any dizziness. No palpitation. She continues to be on aspirin once a day, Lipitor 80 mg daily, Coreg 25 mg twice a day, clonidine 0.1 mg twice a day, Plavix 75 mg daily, hydralazine 25 mg 3 times a day, isosorbide mononitrate 30 mg daily losartan 100 mg daily, nifedipine 30 mg daily, Actos 50 mg daily, triamterene. PHYSICAL EXAMINATION: Blood pressure 129/60 with a heart rate in the 80s. LUNGS: Clear. HEART: Regular rate and rhythm. S1, S2. No S3. No rub appreciated. ABDOMEN: Soft, nontender. Positive bowel sounds. No organomegaly. EXTREMITIES: No edema. Intact distal pulses. LAB DATA: BUN and creatinine 33 and 0.98, potassium 4.2, sodium 132. IMPRESSION: 1. Status post multivessel stenting in the setting of myocardial infarction. 2. Hypertension. 3. Hyperlipidemia. 4. Obesity. RECOMMENDATION: Patient should be able to be discharged home today and followed as an outpatient with Dr. Davila. MMODL / IJN: [id number] /
[2018-08-05] MEDS: ESCITALOPRAM 10 MG TAB PO SCH (09:20)
[2018-08-05] MEDS: ASPIRIN 81 MG PO SCH (09:20)
[2018-08-05] MEDS: CLOPIDOGREL 75 MG TAB PO SCH (09:20)
[2018-08-05] MEDS: TRIAMTERENE-HCTZ 37.5-25MG 1 EACH CAP PO SCH (09:20)
[2018-08-05] MEDS: LINAGLIPTIN 5 MG TABLET PO SCH (09:20)
[2018-08-05] MEDS: hydrALAZINE HCL 25 MG TAB PO SCH (09:20)
[2018-08-05] MEDS: ISOSORBIDE MONONITRATE ER 30 MG TAB.ER.24H PO SCH (09:20)
[2018-08-05] MEDS: PIOGLITAZONE 15 MG TAB PO SCH (09:22)
== END 2018-08-05 10:45 | disposition home or self-care (01) | DRG 247 ==
LOC: EC 16:51 → 2SICU 17:56 → 3SCARD 08-03 20:45
PROVIDERS: ADMIT Family Medicine; ATTEND Family Medicine
PROC: 027135Z Dilation of Coronary Artery, Two Arteries with Two Drug-eluting Intraluminal Devices, Percutaneous Approach (ICD-10-PCS; principal; 2018-08-02 17:51)
PROC: 4A023N7 Measurement of Cardiac Sampling and Pressure, Left Heart, Percutaneous Approach (ICD-10-PCS; 2018-08-02 17:51)
PROC: B2111ZZ Fluoroscopy of Multiple Coronary Arteries using Low Osmolar Contrast (ICD-10-PCS; 2018-08-02 17:51)
PROC: B2151ZZ Fluoroscopy of Left Heart using Low Osmolar Contrast (ICD-10-PCS; 2018-08-02 17:51)
DX: I21.3 ST elevation (STEMI) myocardial infarction of unspecified site (principal); Z68.41 Body mass index [BMI] 40.0-44.9, adult; E11.9 Type 2 diabetes mellitus without complications; I10 Essential (primary) hypertension; E66.9 Obesity, unspecified; E78.5 Hyperlipidemia, unspecified; I25.5 Ischemic cardiomyopathy; K21.9 Gastro-esophageal reflux disease without esophagitis; F41.9 Anxiety disorder, unspecified; I25.10 Atherosclerotic heart disease of native coronary artery without angina pectoris; F31.9 Bipolar disorder, unspecified; Z96.60 Presence of unspecified orthopedic joint implant; Z79.82 Long term (current) use of aspirin; Z79.84 Long term (current) use of oral hypoglycemic drugs; Z79.02 Long term (current) use of antithrombotics/antiplatelets; Z85.6 Personal history of leukemia; Z87.891 Personal history of nicotine dependence; Z88.6 Allergy status to analgesic agent; Z79.899 Other long term (current) drug therapy; Z88.1 Allergy status to other antibiotic agents; Z88.0 Allergy status to penicillin; Z91.041 Radiographic dye allergy status; Z98.891 History of uterine scar from previous surgery
CPT/HCPCS: 36415; 71045; 80048; 80053; 80061; 82550; 82553; 83735; 84100; 84484; 85025; 85347; 85610; 85730; 93005; 93306; 93799; 94760; 96374; 99285; C1874

== ENCOUNTER → 2018-08-02 | Outpatient (CLI) | payer OTHER ==
--- NOTE | 2018-08-02 15:55 | PN ---
PROGRESS NOTE DATE OF SERVICE: 08/02/2018 This patient is a 37-year-old lady who has been followed in [facility] Center for treatment of obstructive sleep apnea-hypopnea syndrome. Recently the patient had a polysomnogram which showed obstructive sleep apnea within mild range with apnea-hypopnea index 5.8. Then patient was started on treatment with Auto PAP with range of the pressure 5 to 12. She started to use her CPAP equipment, and she thinks that she feels better with the CPAP compared to how she slept without it. Since her last visit, the patient developed chest pain on the left side of her heart and the left hand. I checked the patient's CPAP unit. CPAP pressure is in the range of 5 to 12. Average 10.1. Apnea-hypopnea index 1.1 only. Usage is 22/30 nights and /30 nights for more than 4 hours with average usage 3.5 hours. Again, patient's breathing while using the machine is totally normal. MEDICATIONS: 1. Glimepiride. 2. Clonidine. 3. Montelukast. 4. Ferrous sulfate. 5. Isosorbide. 6. Atorvastatin. 7. Nifedipine. 8. Clopidogrel. 9. Carvedilol. 10.Spironolactone. 11.Ventolin. 12.Irbesartan. 13.Aripiprazole. 14.Citalopram. 15.Prilosec. The patient for several days did not take isosorbide and clopidogrel. PHYSICAL EXAMINATION: GENERAL: A pleasant patient without distress. VITAL SIGNS: BP 158/108 on the right arm, retaken 157/104, HR 92, RR 16, temperature 97.8, oxygen saturation at room air 98%. [place]inger Sleepiness Scale of 15. The patient did not sleep well last night. HEENT: ROSA, EOMI. Evaluation of oropharynx showed tongue protrudes midline. Extremely low position of soft palate. Mallampati IV. NECK: Supple. No JVD. Thyroid is not palpable. LUNGS: Clear to percussion and to auscultation. Good air exchange. No wheezing or rhonchi. HEART: S1, S2 regular. No murmurs, gallops or rubs. ABDOMEN: Obese. EXTREMITIES: No clubbing or cyanosis. SENIOR ADVOCATE: Awake, alert, and oriented X3. Cranial nerves 2 to 7 intact. There is no fasciculation or atrophy. noted. No focal deficits observed. IMPRESSION: 1. Coronary artery disease with history of several heart attacks; chest pain since yesterday. 2. Hypertension in the office. Patient did not take several of her medications for several days. 3. Obstructive sleep apnea. Patient started to use CPAP equipment. She sleeps better with CPAP. Apnea-hypopnea index reading from the CPAP unit is normal. 4. Obesity. 5. Depression. 6. Anxiety. 7. Hyperlipidemia. 8. Diabetes mellitus. 9. Bipolar type 1. 10.History of ovarian cyst. 11.Back problem with degenerative disc disease. 12.Status post right knee surgery. 13.History of post-traumatic stress disorder. PLAN: 1. Patient was sent to emergency room for treatment and evaluation of chest pain immediately. 2. She will continue to use her CPAP equipment every night. 3. She should take all her medication on a regular basis. 4. Losing weight. 5. No driving if feeling any sleepiness. Thank you very much for allowing me to participate in the management of your patient. Sincerely, Jean Marie Patricio MD, PhD, FAASM Diplomat of [place] [employer] [place] [employer] Fishing Gear Mechanic of [facility] [place] MMODL / IJN: [id number] /
== END | disposition home or self-care (01) ==
LOC: SLEEP 14:43
PROVIDERS: ATTEND Internal Medicine
DX: G47.33 Obstructive sleep apnea (adult) (pediatric) (principal); E66.9 Obesity, unspecified; R07.9 Chest pain, unspecified; I25.10 Atherosclerotic heart disease of native coronary artery without angina pectoris; I25.2 Old myocardial infarction; I10 Essential (primary) hypertension; F32.9 Major depressive disorder, single episode, unspecified; F41.9 Anxiety disorder, unspecified; E78.5 Hyperlipidemia, unspecified; E11.9 Type 2 diabetes mellitus without complications; M51.36 Other intervertebral disc degeneration, lumbar region; F43.10 Post-traumatic stress disorder, unspecified; Z87.42 Personal history of other diseases of the female genital tract; Z98.890 Other specified postprocedural states; Z79.899 Other long term (current) drug therapy; Z99.89 Dependence on other enabling machines and devices; Z79.84 Long term (current) use of oral hypoglycemic drugs

== ENCOUNTER 2018-12-02 10:42 | Inpatient (IN) | payer OTHER ==
[2018-12-02] MEDS ORDERED: SODIUM CHLORIDE 0.9% 500 ML 500 ML IV ONE (11:11)
--- NOTE | 2018-12-02 11:11 | ED ---
SOB HPI <Anselmo Hodge - Last Filed: 12/02/18 13:41> - General Source: EMS Mode of arrival: EMS Limitations: no limitations <Isadora Moreno - Last Filed: 12/02/18 14:18> - General Chief Complaint: Shortness of Breath Stated Complaint: SOB Time Seen by Provider: 12/02/18 10:59 - History of Present Illness Initial Comments: 38-year-old obese female with significant past medical history including previ ous myocardial infarction with stent placement, diabetes, hypertension, previous smoker, dyslipidemia presented for chief complaint of chest pressure and shortness of breath. Patient states the past week she has had upper respiratory symptoms including cough congestion she states that throughout the week her shortness of breath has been worsening. She states she has been on azithromycin. She states she also has been taking breathing treatments, and attempted to keep her lungs clear. Patient states that this morning her shortness of breath was increasing especially with exertion, and while she was in the shower she began to develop chest pressure. She denies any back pain radiation of the pain neck pain she denies any hemoptysis, history of DVT or pulmonary embolism, unilateral leg swelling, recent surgical procedures or active cancer. Patient states that she has had b/l LE swelling. Patient denies any known aneurysm history. Also of note patient states for the past week she has had pain with inspiration occasional this was more sharp. She states that the chest pressure she has experiencing this morning while the shower was different. Patient was concerned of this chest pressure presents emergency department for evaluation. Patient denies taking nitro. Patient states she took a total of 324 mg of aspirin between her morning dose of 81 mg and 243 mg she was given by EMS. Patient refused nitroglycerin sublingual tablet. Remaining review of systems negative. Upon arrival patient appears stable no signs of acute distress. Nurse at bedside during history taking obtaining blood, oxygen in place. (Isadora Moreno) - Related Data Home Medications Medication Instructions Recorded Confirmed Carvedilol 25 mg PO BID 07/11/18 12/02/18 Ferrous Sulfate [Iron] 325 mg PO DAILY 07/11/18 12/02/18 Irbesartan 300 mg PO DAILY 07/11/18 12/02/18 Isosorbide Mononitrate [Isosorbide 30 mg PO DAILY 07/11/18 12/02/18 Mononitrate ER] Montelukast [Singulair] 10 mg PO HS 07/11/18 12/02/18 NIFEdipine [NIFEdipine ER] 30 mg PO HS 07/11/18 12/02/18 Pioglitazone HCl [Actos] 15 mg PO DAILY 08/02/18 12/02/18 Triamterene-Hctz 37.5-25Mg 1 cap PO DAILY 08/02/18 12/02/18 [Dyazide 37.5-25 Capsule] metFORMIN HCL [Glucophage] 1,000 mg PO BID 08/02/18 12/02/18 Atorvastatin [Lipitor] 40 mg PO HS 12/02/18 12/02/18 Betamethasone Dipropionate 1 applic TOPICAL DAILY 12/02/18 12/02/18 [Diprolene AF 0.05% Cream] Lisinopril [Zestril] 20 mg PO DAILY 12/02/18 12/02/18 Semaglutide [Ozempic] 0.25 mg SQ MO 12/02/18 12/02/18 cloNIDine HCL [Catapres] 0.2 mg PO TID 12/02/18 12/02/18 Previous Rx's Medication Instructions Recorded Aspirin 81 mg PO DAILY chew 08/05/18 hydrALAZINE HCL [Apresoline] 25 mg PO TID #270 tab 08/05/18 Allergies Allergy/AdvReac Type Severity Reaction Status Date / Time cephalexin [From Keflex] AdvReac Rash/Hives Verified 12/02/18 10:56 Iodine and Iodide Containing AdvReac Rash/Hives Verified 12/02/18 10:56 Produc Penicillins AdvReac Rash/Hives Verified 12/02/18 10:56 tramadol AdvReac Rash/Hives Verified 12/02/18 10:56 Review of Systems ROS Other: All systems not noted in ROS Statement are negative. <Anselmo Hodge - Last Filed: 12/02/18 13:41> ROS Other: All systems not noted in ROS Statement are negative. <Isadora Moreno - Last Filed: 12/02/18 14:18> ROS Statement: Those systems with pertinent positive or pertinent negative responses have been documented in the HPI. Past Medical History Past Medical History: Asthma, Coronary Artery Disease (CAD), Diabetes Mellitus, GERD/Reflux, Hyperlipidemia, Hypertension Additional Past Medical History / Comment(s): peptic ulcer, gall stones, kidney stone, childhood lukemia History of Any Multi-Drug Resistant Organisms: None Reported Past Surgical History: Section, Joint Replacement, Tonsillectomy, Tubal Ligation Past Anesthesia/Blood Transfusion Reactions: No Reported Reaction Past Psychological History: Anxiety, Bipolar, Depression, Schizophrenia Smoking Status: Former smoker Past Alcohol Use History: None Reported Past Drug Use History: None Reported - Past Family History Father Family Medical History: Hyperlipidemia, Hypertension Additional Family Medical History / Comment(s): pins in knee, heart stents x 4 <Isadora Moreno - Last Filed: 12/02/18 14:18> General Exam Limitations: no limitations <Isadora Moreno - Last Filed: 12/02/18 14:18> - General Exam Comments Initial Comments: General: The patient is awake and alert, no respiratory distress, nasal cannula in place. Eye: +3 mm pupils are equal, round and reactive to light, extra-ocular movements are intact. No nystagmus. There is normal conjunctiva bilaterally. No signs of icterus. Ears, nose, mouth and throat: There are moist mucous membranes and no oral lesions. Neck: The neck is supple, there is no tenderness or JVD. Cardiovascular: There is a regular rate and rhythm. No obvious murmur, rub or gallop is appreciated. Respiratory: Lungs are clear to auscultation, respirations are non-labored, breath sounds are equal. No wheezes, stridor, rales, or rhonchi. Gastrointestinal: Soft, non-distended, non-tender abdomen without masses or organomegaly noted. There is no rebound or guarding present. Musculoskeletal: Normal ROM, no tenderness. Strength 5/5. Sensation intact. Radial and DP pulses equal bilaterally 2+. Neurological: A&O x 3. CN II-XII intact grossly, There are no obvious motor or sensory deficits. Coordination appears grossly intact. Speech is normal. Skin: Skin is warm and dry and no rashes or lesions are noted. No pitting edmea of the LE b/l, equal, no calf pain to palpation or unilateral swelling, no p alpable masses. Psychiatric: Cooperative, appropriate mood & affect, normal judgment. (Isadora Moreno) Course <Anselmo Hodge - Last Filed: 12/02/18 13:41> Vital Signs 12/02/18 12/02/18 12/02/18 10:55 10:58 11:42 Temperature 98 F Pulse Rate 96 87 Respiratory 20 20 17 Rate Blood Pressure 115/77 103/56 O2 Sat by Pulse 95 94 L Oximetry 12/02/18 12/02/18 12/02/18 11:50 12:00 12:10 Temperature Pulse Rate 85 85 87 Respiratory 17 24 14 Rate Blood Pressure 104/58 104/58 106/55 O2 Sat by Pulse 93 L 94 L 95 Oximetry 12/02/18 12/02/18 12/02/18 12:20 12:30 12:50 Temperature Pulse Rate 87 87 Respiratory 27 H 19 Rate Blood Pressure 113/68 113/68 125/104 O2 Sat by Pulse 94 L 91 L Oximetry 12/02/18 12/02/18 12/02/18 13:00 13:10 13:20 Temperature Pulse Rate 87 89 Respiratory 21 20 Rate Blood Pressure 125/104 116/53 125/82 O2 Sat by Pulse 90 L 92 L Oximetry 12/02/18 12/02/18 12/02/18 13:30 13:40 13:49 Temperature Pulse Rate 90 87 88 Respiratory 20 28 H 16 Rate Blood Pressure 125/82 118/80 106/57 O2 Sat by Pulse 96 94 L 99 Oximetry - Reevaluation(s) Reevaluation #1: 12/02/18 13:42 PA supervision: I proceeded a [id number]-cb-[id number] evaluation the patient did discuss findings with her. I do agree with the assessment and plan I also did discuss case with Dr. Sena. Patient will be admitted with evaluation by cardiology. She does demonstrate elevated troponin. Elevated d-dimer was noted but CAT scan of the chest was negative for pulmonary emboli. (Anselmo Hodge) Medical Decision Making - Lab Data Result diagrams: 12/02/18 11:08 12/02/18 11:08 <Anselmo Hodge - Last Filed: 12/02/18 13:41> - Lab Data Result diagrams: 12/02/18 11:08 12/02/18 11:08 <Isadora Moreno - Last Filed: 12/02/18 14:18> - Medical Decision Making 38-year-old female presented for chief complaint of chest pressure, SOB. Patient states she is in the shower this morning between 8 and 9 AM she developed chest pressure she states she was concerned that this was later myocardial infarction and presents emergency department. Patient given aspirin upon transportation 324 mg in total between her morning dose and EMS. Patient refused nitroglycerin. Patient states the pain has subsided. Patient was given a breathing treatment in the EMS as well. Patient states that she feels that she has better air movement. Lungs are clear to auscultation. There is bilateral nonpitting edema of the lower extremities. There is no calf pain redness or masses. Patient has no specific risk factors for DVT plan wasn't. However patient is on antiplatelet aggregation therapy patient did admit to pleuritic chest pain and d-dimer was obtained at this time. D-dimer returned elevated, CT was obtained revealing no acute pulmonary embolism however very small bilateral pleural effusions. Initial troponin was elevated. Will trend. Concern for non-ST elevation TN. GIven patient risk factors, symptoms with elevated troponin patient was a started on low intensity heparin. Patient agreeable with treatment and admission. Cardiology on urgent consult. Patient transferred to the floor in stable condition. Throughout course the patient's care in the emergency department I discussed findings EKGs and laboratory s rico with attending provider who is agreeable care plan and admission he spoke with the admitting provider Dr. Anthony. (Isadora Moreno) - Lab Data Lab Results 12/02/18 12/02/18 12/02/18 Range/Units 11:08 11:08 11:08 WBC 4.9 (3.8-10.6) k/uL RBC 4.24 (3.80-5.40) m/uL Hgb 12.8 (11.4-16.0) gm/dL Hct 38.6 (34.0-46.0) % MCV 91.1 (80.0-100.0) fL MCH 30.2 (25.0-35.0) pg MCHC 33.1 (31.0-37.0) g/dL RDW 13.0 (11.5-15.5) % Plt Count 206 (150-450) k/uL Neutrophils % 69 % Lymphocytes % 22 % Monocytes % 5 % Eosinophils % 2 % Basophils % 1 % Neutrophils # 3.3 (1.3-7.7) k/uL Lymphocytes # 1.1 (1.0-4.8) k/uL Monocytes # 0.2 (0-1.0) k/uL Eosinophils # 0.1 (0-0.7) k/uL Basophils # 0.0 (0-0.2) k/uL PT 10.3 (9.0-12.0) sec INR 1.0 (<1.2) APTT 22.1 (22.0-30.0) sec D-Dimer 1.48 H (<0.60) mg/L FEU Sodium 135 L (137-145) mmol/L Potassium 3.9 (3.5-5.1) mmol/L Chloride 102 (98-107) mmol/L Carbon Dioxide 23 (22-30) mmol/L Anion Gap 10 mmol/L BUN 11 (7-17) mg/dL Creatinine 0.76 (0.52-1.04) mg/dL Est GFR (CKD-EPI)AfAm >90 (>60 ml/min/1.73 sqM) Est GFR (CKD-EPI)NonAf >90 (>60 ml/min/1.73 sqM) Glucose 380 H (74-99) mg/dL Calcium 8.6 (8.4-10.2) mg/dL Total Bilirubin 1.0 (0.2-1.3) mg/dL AST 51 H (14-36) U/L ALT 99 H (9-52) U/L Alkaline Phosphatase 66 (38-126) U/L Troponin I (0.000-0.034) ng/mL NT-Pro-B Natriuret Pep pg/mL Total Protein 5.9 L (6.3-8.2) g/dL Albumin 3.5 (3.5-5.0) g/dL 12/02/18 12/02/18 Range/Units 11:08 11:08 WBC (3.8-10.6) k/uL RBC (3.80-5.40) m/uL Hgb (11.4-16.0) gm/dL Hct (34.0-46.0) % MCV (80.0-100.0) fL MCH (25.0-35.0) pg MCHC (31.0-37.0) g/dL RDW (11.5-15.5) % Plt Count (150-450) k/uL Neutrophils % % Lymphocytes % % Monocytes % % Eosinophils % % Basophils % % Neutrophils # (1.3-7.7) k/uL Lymphocytes # (1.0-4.8) k/uL Monocytes # (0-1.0) k/uL Eosinophils # (0-0.7) k/uL Basophils # (0-0.2) k/uL PT (9.0-12.0) sec INR (<1.2) APTT (22.0-30.0) sec D-Dimer (<0.60) mg/L FEU Sodium (137-145) mmol/L Potassium (3.5-5.1) mmol/L Chloride (98-107) mmol/L Carbon Dioxide (22-30) mmol/L Anion Gap mmol/L BUN (7-17) mg/dL Creatinine (0.52-1.04) mg/dL Est GFR (CKD-EPI)AfAm (>60 ml/min/1.73 sqM) Est GFR (CKD-EPI)NonAf (>60 ml/min/1.73 sqM) Glucose (74-99) mg/dL Calcium (8.4-10.2) mg/dL Total Bilirubin (0.2-1.3) mg/dL AST (14-36) U/L ALT (9-52) U/L Alkaline Phosphatase (38-126) U/L Troponin I 0.086 H* (0.000-0.034) ng/mL NT-Pro-B Natriuret Pep 1270 pg/mL Total Protein (6.3-8.2) g/dL Albumin (3.5-5.0) g/dL - EKG Data EKG Comments: Ventricular rate 96 bpm, UT interval 126 most seconds, QRS duration 80 ms, QT/QTC 440/555 ms. There is no T-wave inversions in leads 1 and 2. Prolonged QT. No ST elevation or depression noted. EKG was compared to that of 08/02/2018 with there was acute TN. Appears to be simiar without apparent acute TN. EKG was initally reviewed and interpretted/compared by my attending provider. I also persoanlly interpretted EKG following initial review. Repeat EKG was obtained at 1142. Ventricular rate 87 bpm, UT interval 134 ms, QR worship 84 ms, QT/QTC 458/551. This is normal sinus rhythm with left atrial enlargement. Again redemonstrated T-wave inversions with a prolonged QT. No significant change from previous. We'll continue to monitor. EKG personally interpreted. No ST elevation/depression. (Isadora Moreno) Disposition <Anselmo Hodge - Last Filed: 12/02/18 13:41> Is patient prescribed a controlled substance at d/c from ED?: No Time of Disposition: 11:18 Decision to Admit Reason: Admit from EC Decision Time: 11:18 <Isadora Moreno - Last Filed: 12/02/18 14:18> Clinical Impression: NSTEMI (non-ST elevated myocardial infarction), Elevated troponin, SOB (shortness of breath) Disposition: ADMITTED IP TO THIS HOSP Condition: Stable
[2018-12-02 11:37] LABS: ALT 99 U/L (9-52); AST 51 U/L (14-36); African American GFR (CKD) >90 (>60 ml/min/1.73 sqM); Albumin 3.5 g/dL (3.5-5.0); Alkaline Phosphatase 66 U/L (38-126); Anion Gap 10 mmol/L; Blood Urea Nitrogen 11 mg/dL (7-17); Calcium 8.6 mg/dL (8.4-10.2); Carbon Dioxide 23 mmol/L (22-30); Chloride 102 mmol/L (98-107); Glucose 380 mg/dL (74-99); Potassium 3.9 mmol/L (3.5-5.1); Sodium 135 mmol/L (137-145); Total Protein 5.9 g/dL (6.3-8.2)
--- NOTE | 2018-12-02 11:40 | XR ---
EXAMINATION TYPE: XR chest 2V DATE OF EXAM: 12/02/2018 HISTORY: difficulty breathing. REFERENCE: Previous study dated 08/02/2018. FINDINGS: The heart is enlarged. There is increased density at the lung bases which may represent mikal e atelectasis or early pneumonia. There is blunting of both CP angles and I could not exclude small e ffusions. IMPRESSION: 1. CARDIOMEGALY. 2. ATELECTASIS VERSUS CONSOLIDATION, BOTH LUNG BASES. 3. I CANNOT EXCLUDE SMALL, BILATERAL EFFUSIONS.
[2018-12-02 11:41] LABS: Partial Thromboplastin Time 22.1 sec (22.0-30.0); Prothrombin Time 10.3 sec (9.0-12.0)
[2018-12-02 11:43] LABS: Basophils % (A) 1 %; Eosinophils # (A) 0.1 k/uL (0-0.7); Eosinophils % (A) 2 %; HCT 38.6 % (34.0-46.0); HGB 12.8 gm/dL (11.4-16.0); Lymphocytes # (A) 1.1 k/uL (1.0-4.8); Lymphocytes % (A) 22 %; MCH 30.2 pg (25.0-35.0); MCHC 33.1 g/dL (31.0-37.0); MCV 91.1 fL (80.0-100.0); Mean Platelet Volume 7.8; Monocytes # (A) 0.2 k/uL (0-1.0); Monocytes % (A) 5 %; Neutrophils # (A) 3.3 k/uL (1.3-7.7); Neutrophils % (A) 69 %; Platelet Count 206 k/uL (150-450); RBC 4.24 m/uL (3.80-5.40); WBC 4.9 k/uL (3.8-10.6)
[2018-12-02 11:44] LABS: D-Dimer 1.48 mg/L FEU (<0.60)
[2018-12-02] MEDS ORDERED: FAMOTIDINE 20 MG/2 ML VIAL IV STA (11:58)
[2018-12-02] MEDS ORDERED: methylPREDNISolone SOD SUCCI 125 MG/2 ML VIAL IV STA (11:58)
[2018-12-02] MEDS ORDERED: diphenhydrAMINE 50 MG/ML 1 ML VIAL IVP STA (11:58)
[2018-12-02] MEDS ORDERED: HEPARIN SODIUM,PORCINE 5,000 UNIT/ML 1 ML VIAL IV PRN (12:17)
[2018-12-02] MEDS ORDERED: HEPARIN SODIUM,PORCINE 5,000 UNIT/ML 1 ML VIAL IV ONE (12:17)
[2018-12-02] MEDS ORDERED: NITROGLYCERIN SL TABS 0.4 MG TAB SUBLINGUAL PRN (12:40)
--- NOTE | 2018-12-02 12:56 | CT ---
EXAMINATION TYPE: CT chest angio for PE DATE OF EXAM: 12/02/2018 COMPARISON: None. HISTORY: SOB CT DLP: 570.5 mGycm Automated exposure control for dose reduction was used. CONTRAST: CT Chest for pulmonary embolism performed with without and with IV Contrast, patient injected with 10 0 ML mL of Isovue 300. FINDINGS: There are small, bilateral effusions. There is patchy groundglass opacity throughout both l ungs. No lobar consolidation is seen. There is no significant axillary adenopathy. There is some shotty mediastinal adenopathy. There is no evidence of pulmonary embolus. The aorta is normal in caliber without evidence of dissection. The heart is mildly enlarged. There is no pericardial fluid. Within the abdomen, there is evidence of splenomegaly with spleen measuring 15 cm. Visualized portion s of the upper abdomen are otherwise unremarkable. There is hypertrophic spondylosis present within the dorsal spine. IMPRESSION: 1. This examination is negative for pulmonary embolus. 2. Mild cardiomegaly. 3. Small, bilateral effusions. 4. Patchy groundglass opacity present bilaterally May reflect alveolitis or atypical pneumonia. 5. Splenomegaly.
[2018-12-02] MEDS: HEPARIN SOD,PORK IN 0.45% NACL 25,000 UNIT in 0.45% NACL 1 250ML.BAG IV SCH (13:15)
[2018-12-02 14:30] LABS: Glucose,Whole Blood 333 mg/dL (75-99)
--- NOTE | 2018-12-02 14:32 | HP ---
HISTORY AND PHYSICAL CHIEF COMPLAINT: Chest pain. HISTORY OF PRESENT ILLNESS: This is another admission for this 38-year-old white female who has multiple problems including coronary artery disease, poorly controlled insulin-dependent diabetes mellitus, hypertension, hyperlipidemia, previous myocardial infarction. She started to develop a cold with slight nasal congestion, scratchy throat and slight cough and then she developed substernal chest discomfort very similar to her cardiac pain. She came in at that time. In the emergency room, she had a slightly elevated troponin and D-dimer. EKG was unchanged. She was taken for a CTA which was negative. REVIEW OF SYSTEMS: She has had no syncope, CVAs, change in vision or hearing, cough, hemoptysis, pleuritic pain, syncope, palpitations, orthopnea, PND, abdominal pain, nausea, vomiting, hematemesis, melena, hematochezia, jaundice, hematuria, frequency, urgency, renal failure, etc. Past medical history, family history, personal and social histories are all otherwise unremarkable or noncontributory to this admission. PHYSICAL EXAM: Temperature 98. Pulse 96, respirations 20 and blood pressure is 115/77. In general, she appeared to be obese and in no acute distress. Skin color is normal. Skin is warm, dry, and she is not diaphoretic. Lymph nodes not enlarged. Head, ears, eyes, nose, mouth, and throat were normal. Chest is clear to auscultation and percussion. Cardiac exam demonstrated sinus rhythm with no murmurs or extra sounds. There was there was an S3 and an S4. Abdomen is soft and nontender without any visceromegaly or masses. Bowel sounds were present. Extremities are normal. Neurological is intact. She is admitted to the hospital with diagnoses: 1. Chest pain. 2. Bronchitis. 3. Coronary artery disease. 4. Previous myocardial infarction. 5. Poorly controlled insulin-dependent diabetes mellitus. 6. Hyperlipidemia. 7. Hypertension. PLAN: 1. Bed rest. 2. IV fluids. 3. Serial EKGs and enzymes. 4. Consult with Cardiology. MMODL / IJN: [id number] /
[2018-12-02 16:48] LABS: Glucose,Whole Blood 411 mg/dL (75-99)
[2018-12-02] MEDS: cloNIDine HCL 0.2 MG TAB PO SCH ×2 (17:36→21:33)
[2018-12-02] MEDS: hydrALAZINE HCL 25 MG TAB PO SCH ×2 (17:36→21:33)
[2018-12-02] MEDS: CARVEDILOL 12.5 MG TAB PO SCH (17:36)
[2018-12-02] MEDS: INSULIN ASPART (NovoLOG) 100 UNIT/ML VIAL SQ SCH ×4 (17:50→21:16)
[2018-12-02 20:14] LABS: Glucose,Whole Blood 431 mg/dL (75-99)
[2018-12-02] MEDS ORDERED: ATORVASTATIN 40 MG TAB PO SCH (21:00)
[2018-12-02] MEDS ORDERED: INSULIN ASPART (NovoLOG) 100 UNIT/ML VIAL SQ SCH (21:00)
[2018-12-02] MEDS ORDERED: NIFEdipine XL 30 MG TAB.ER.24 PO SCH (21:00)
[2018-12-02] MEDS ORDERED: INSULIN ASPART (NovoLOG) 100 UNIT/ML VIAL SQ ONE (21:15)
[2018-12-02 21:31] LABS: Glucose,Whole Blood 527 mg/dL (75-99)
[2018-12-02] MEDS: MONTELUKAST 10 MG TAB PO SCH (21:33)
[2018-12-02] MEDS: INSULIN DETEMIR (LEVEMIR) 100 UNIT/ML SYR SQ SCH (21:34)
[2018-12-03 00:58] LABS: Glucose,Whole Blood 442 mg/dL (75-99)
[2018-12-03 03:52] LABS: Basophils % (A) 0 %; Eosinophils # (A) 0.1 k/uL (0-0.7); Eosinophils % (A) 1 %; HCT 39.1 % (34.0-46.0); HGB 12.9 gm/dL (11.4-16.0); Lymphocytes % (A) 12 %; MCH 30.9 pg (25.0-35.0); MCHC 32.9 g/dL (31.0-37.0); MCV 93.7 fL (80.0-100.0); Mean Platelet Volume 8.2; Monocytes # (A) 0.3 k/uL (0-1.0); Monocytes % (A) 3 %; Neutrophils # (A) 7.3 k/uL (1.3-7.7); Neutrophils % (A) 83 %; Platelet Count 206 k/uL (150-450); Poikilocytosis Slight; RBC 4.17 m/uL (3.80-5.40); RDW 14.2 % (11.5-15.5); WBC 8.8 k/uL (3.8-10.6)
[2018-12-03 04:02] LABS: Cholesterol 183 mg/dL (<200); HDL Cholesterol 35 mg/dL (40-60); LDL Cholesterol,Calculated 103 mg/dL (0-99); Triglycerides 227 mg/dL (<150)
[2018-12-03 05:48] LABS: ALT 87 U/L (9-52); AST 33 U/L (14-36); African American GFR (CKD) >90 (>60 ml/min/1.73 sqM); Albumin 3.4 g/dL (3.5-5.0); Alkaline Phosphatase 74 U/L (38-126); Anion Gap 13 mmol/L; Blood Urea Nitrogen 18 mg/dL (7-17); Carbon Dioxide 17 mmol/L (22-30); Chloride 103 mmol/L (98-107); Glucose 403 mg/dL (74-99); Potassium 4.2 mmol/L (3.5-5.1); Sodium 133 mmol/L (137-145); Total Bilirubin 0.5 mg/dL (0.2-1.3); Total Protein 5.9 g/dL (6.3-8.2)
[2018-12-03 06:09] LABS: Glucose,Whole Blood 303 mg/dL (75-99)
[2018-12-03] MEDS: CARVEDILOL 12.5 MG TAB PO SCH ×2 (06:26→18:14)
[2018-12-03] MEDS: INSULIN ASPART (NovoLOG) 100 UNIT/ML VIAL SQ SCH ×8 (06:26→23:52)
[2018-12-03] MEDS ORDERED: CLOPIDOGREL 75 MG TAB PO STA (08:38)
--- NOTE | 2018-12-03 08:38 | P.CRDCN ---
History of Present Illness Consult date: 12/03/18 Requesting physician: Odell Sena Consult reason: non-Q-wave [place] Chief complaint: Chest pain History of present illness: This is a pleasant 38-year-old female with history of hypertension, hyperlipidemia, diabetes, coronary artery disease for which the patient underwent angioplasty and stenting of the LAD and circumflex artery, patient was also found at that time to have disease in the first obtuse marginal branch and the diagonal branch lesions. This was performed in July of this year in the setting of a myocardial infarction. She also had an echocardiogram with Doppler study performed which revealed an ejection fraction of 45-50% at that time. She presents to the hospital on this occasion with symptoms of midsternal chest pressure. According to the patient, she's been dealing with a cold recently and has felt herself to be much more short of breath than usual. She states she went into the shower, and developed midsternal chest pressure and tightness similar to her presentation with her myocardial infarction. She states she went down in the shower but did not pass out completely. For this reason she came to the emergency room for further evaluation and treatment. Her EKG on presentation here showed a normal sinus rhythm with nonspecific ST-T wave moore ges noted in the lateral leads. Subsequent EKG showed normal sinus rhythm with ST T wave changes noted in the anterior lateral leads. CTA of the chest was negative for any pulmonary embolism, it did show some small bilateral pleural effusions. Chest x-ray showed cardiomegaly, atelectasis versus consolidation, small bilateral effusions. I pressure on arrival here 116/70 with a heart rate of 90, 95% on 2 L of oxygen. White blood cell count 8.8, hemoglobin 12.9, platelet count 206. D-dimer 1.4, sodium 133, potassium 4.2, BUN 18 and creatinine 0.8. Blood sugar on arrival here 527, patient had been given steroids as an outpatient previous to this. Her AST on arrival 51, ALT 99, troponins 0.086, 0.066, 0.054. BNP level 1270. Cholesterol level 183, LDL 103, HDL 35, triglycerides are 227. At the time of my examination this morning, patient is currently chest pain-free, she just feels extremely tired. Past Medical History Past Medical History: Asthma, Coronary Artery Disease (CAD), Diabetes Mellitus, GERD/Reflux, Hyperlipidemia, Hypertension Additional Past Medical History / Comment(s): peptic ulcer, gall stones, kidney stone, childhood lukemia History of Any Multi-Drug Resistant Organisms: None Reported Past Surgical History: Section, Joint Replacement, Tonsillectomy, Tubal Ligation Additional Past Surgical History / Comment(s): 2 stents placed in July Past Anesthesia/Blood Transfusion Reactions: No Reported Reaction Date of Last Stent Placement:: 08/02/18 Past Psychological History: Anxiety, Bipolar, Depression, Schizophrenia Smoking Status: Former smoker Past Alcohol Use History: None Reported Past Drug Use History: None Reported - Past Family History Father Family Medical History: Hyperlipidemia, Hypertension Additional Family Medical History / Comment(s): pins in knee, heart stents x 4 Medications and Allergies Home Medications Medication Instructions Recorded Confirmed Type Carvedilol 25 mg PO BID 07/11/18 12/02/18 History Ferrous Sulfate [Iron] 325 mg PO DAILY 07/11/18 12/02/18 History Irbesartan 300 mg PO DAILY 07/11/18 12/02/18 History Isosorbide Mononitrate [Isosorbide 30 mg PO DAILY 07/11/18 12/02/18 History Mononitrate ER] Montelukast [Singulair] 10 mg PO HS 07/11/18 12/02/18 History NIFEdipine [NIFEdipine ER] 30 mg PO HS 07/11/18 12/02/18 History Pioglitazone HCl [Actos] 15 mg PO DAILY 08/02/18 12/02/18 History Triamterene-Hctz 37.5-25Mg 1 cap PO DAILY 08/02/18 12/02/18 History [Dyazide 37.5-25 Capsule] metFORMIN HCL [Glucophage] 1,000 mg PO BID 08/02/18 12/02/18 History Aspirin 81 mg PO DAILY chew 08/05/18 12/02/18 Rx hydrALAZINE HCL [Apresoline] 25 mg PO TID #270 tab 08/05/18 12/02/18 Rx Atorvastatin [Lipitor] 40 mg PO HS 12/02/18 12/02/18 History Betamethasone Dipropionate 1 applic TOPICAL DAILY 12/02/18 12/02/18 History [Diprolene AF 0.05% Cream] Lisinopril [Zestril] 20 mg PO DAILY 12/02/18 12/02/18 History Semaglutide [Ozempic] 0.25 mg SQ MO 12/02/18 12/02/18 History cloNIDine HCL [Catapres] 0.2 mg PO TID 12/02/18 12/02/18 History Allergies Allergy/AdvReac Type Severity Reaction Status Date / Time cephalexin [From Keflex] AdvReac Rash/Hives Verified 12/02/18 10:56 Iodine and Iodide Containing AdvReac Rash/Hives Verified 12/02/18 10:56 Produc Penicillins AdvReac Rash/Hives Verified 12/02/18 10:56 tramadol AdvReac Rash/Hives Verified 12/02/18 10:56 Physical Exam Vitals: Vital Signs Temp Pulse Pulse Resp BP BP Pulse Ox 12/03/18 04:00 97.8 F 86 18 126/86 97 12/03/18 00:00 98.6 F 78 15 136/78 98 12/02/18 20:00 97.5 F L 85 17 119/85 97 12/02/18 17:00 94 18 135/80 97 12/02/18 13:49 88 16 106/57 99 12/02/18 13:40 87 28 H 118/80 94 L 12/02/18 13:30 90 20 125/82 96 12/02/18 13:20 125/82 12/02/18 13:10 89 20 116/53 92 L 12/02/18 13:00 87 21 125/104 90 L 12/02/18 12:50 87 19 125/104 91 L 12/02/18 12:30 113/68 12/02/18 12:20 87 27 H 113/68 94 L 12/02/18 12:10 87 14 106/55 95 12/02/18 12:00 85 24 104/58 94 L 12/02/18 11:50 85 17 104/58 93 L 12/02/18 11:42 87 17 103/56 94 L 12/02/18 10:58 20 12/02/18 10:55 98 F 96 20 115/77 95 Intake and Output 12/02/18 12/03/18 12/03/18 22:59 06:59 14:59 Intake Total 80.333 100.1 Balance 80.333 100.1 Intake: Intake, IV Titration 80.333 100.1 Amount Heparin Sod,Pork in 0.45% 80.333 100.1 NaCl 25,000 unit In 0.45 % NaCl 1 250ml.bag @ 9. 709 UNITS/KG/HR 10 mls/hr IV .Q24H [facility] Rx#: [id number] Other: Voiding Method Toilet Toilet # Voids 2 2 Weight 102.4 kg PHYSICAL EXAMINATION: GENERAL: 38-year-old female in no acute distress at the time of my examination HEENT: Head is atraumatic, normocephalic. Pupils equal, round. Sclera anicteric. Conjunctiva are clear. Mucous membranes of the mouth are moist. Neck is supple. There is no elevated jugular venous pressure. No carotid bruit is heard. HEART EXAMINATION: R S1 and S2 1 systolic murmur is heard CHEST EXAMINATION: Lungs are clear to auscultation with mild diminished air entry to the bases . ABDOMEN: Soft, obese, nontender. Bowel sounds are heard. No organomegaly noted. EXTREMITIES: 2+ peripheral pulses with trace evidence of peripheral edema and no calf tenderness noted. NEUROLOGIC patient is awake, alert and oriented 3 . . Results 12/03/18 03:40 12/03/18 03:40 Cardiac Enzymes 12/02/18 12/02/18 12/02/18 Range/Units 11:08 11:08 16:57 AST 51 H (14-36) U/L Troponin I 0.086 H* 0.066 H* (0.000-0.034) ng/mL 12/02/18 12/03/18 Range/Units 22:28 03:40 AST 33 (14-36) U/L Troponin I 0.054 H* (0.000-0.034) ng/mL Coagulation 12/02/18 12/02/18 12/03/18 Range/Units 11:08 19:28 03:40 PT 10.3 (9.0-12.0) sec APTT 22.1 28.6 32.1 H (22.0-30.0) sec Lipids 12/03/18 Range/Units 03:40 Triglycerides 227 H (<150) mg/dL Cholesterol 183 (<200) mg/dL HDL Cholesterol 35 L (40-60) mg/dL CBC 12/02/18 12/03/18 Range/Units 11:08 03:40 WBC 4.9 8.8 (3.8-10.6) k/uL RBC 4.24 4.17 (3.80-5.40) m/uL Hgb 12.8 12.9 (11.4-16.0) gm/dL Hct 38.6 39.1 (34.0-46.0) % Plt Count 206 206 (150-450) k/uL Comprehensive Metabolic Panel 12/02/18 12/03/18 Range/Units 11:08 03:40 Sodium 135 L 133 L (137-145) mmol/L Potassium 3.9 4.2 (3.5-5.1) mmol/L Chloride 102 103 (98-107) mmol/L Carbon Dioxide 23 17 L (22-30) mmol/L BUN 11 18 H (7-17) mg/dL Creatinine 0.76 0.81 (0.52-1.04) mg/dL Glucose 380 H 403 H (74-99) mg/dL Calcium 8.6 9.0 (8.4-10.2) mg/dL AST 51 H 33 (14-36) U/L ALT 99 H 87 H (9-52) U/L Alkaline Phosphatase 66 74 (38-126) U/L Total Protein 5.9 L 5.9 L (6.3-8.2) g/dL Albumin 3.5 3.4 L (3.5-5.0) g/dL Current Medications Generic Name Dose Route Start Last Admin Trade Name Freq PRN Reason Stop Dose Admin Aspirin 325 mg 12/03/18 09:00 Aspirin PO DAILY [facility] Atorvastatin Calcium 40 mg 12/02/18 21:00 12/02/18 21:33 Lipitor PO 40 mg HS [facility] Administration Betamethasone Dipropionate 1 applic 12/03/18 09:00 Diprolene Af TOPICAL DAILY [facility] Carvedilol 25 mg 12/02/18 17:30 12/03/18 06:26 Coreg PO 25 mg AC-BID [facility] Administration Clonidine 0.2 mg 12/02/18 16:00 12/02/18 21:33 Catapres PO 0.2 mg TID [facility] Administration Ferrous Sulfate 325 mg 12/03/18 09:00 Feosol PO DAILY [facility] Heparin Sodium (Porcine) 0 unit 12/02/18 12:17 09/15/19 21:33 Heparin IV 4,000 unit PER PROTOCOL PRN Administration Low PTT Protocol Hydralazine HCl 25 mg 12/02/18 16:00 12/02/18 21:33 Apresoline PO 25 mg TID [facility] Administration Heparin Sodium/Sodium Chloride 250 mls @ 10 mls/hr 12/02/18 12:30 12/03/18 04:59 25,000 unit/ Sodium Chloride IV 15.53 units/kg/hr .Q24H [facility] 16 mls/hr Titration Protocol 9.709 UNITS/KG/HR Insulin Aspart 0 unit 12/02/18 17:30 12/03/18 06:26 Novolog SQ 9 unit ACHS [facility] Administration Protocol Insulin Aspart 10 unit 12/02/18 17:45 12/03/18 06:58 Novolog SQ Not Given ACHS [facility] Insulin Detemir 30 unit 12/02/18 21:00 12/02/18 21:34 Levemir SQ 30 unit HS [facility] Administration Isosorbide Mononitrate 30 mg 12/03/18 09:00 Imdur PO DAILY [facility] Lisinopril 20 mg 12/03/18 09:00 Zestril PO DAILY [facility] Losartan Potassium 100 mg 12/03/18 09:00 Cozaar PO DAILY [facility] Montelukast Sodium 10 mg 12/02/18 21:00 12/02/18 21:33 Singulair PO 10 mg HS [facility] Administration Nifedipine 30 mg 12/02/18 21:00 12/02/18 21:33 Procardia Xl PO 30 mg HS [facility] Administration Nitroglycerin 0.4 mg 12/02/18 12:40 Nitrostat SUBLINGUAL Q5M PRN Chest Pain Ozempic (Semaglutide 0.25 mg 12/03/18 09:00 ) 2 Mg/1.5 Ml SQ MO [facility] Pioglitazone HCl 15 mg 12/03/18 09:00 Actos PO DAILY [facility] Triamterene/HCTZ 1 each 12/03/18 09:00 Dyazide PO DAILY [facility] Intake and Output 12/02/18 12/03/18 12/03/18 22:59 06:59 14:59 Intake Total 80.333 100.1 Balance 80.333 100.1 Intake: Intake, IV Titration 80.333 100.1 Amount Heparin Sod,Pork in 0.45% 80.333 100.1 NaCl 25,000 unit In 0.45 % NaCl 1 250ml.bag @ 9. 709 UNITS/KG/HR 10 mls/hr IV .Q24H [facility] Rx#: [id number] Other: Voiding Method Toilet Toilet # Voids 2 2 Weight 102.4 kg 12/03/18 03:40 12/03/18 03:40 EKG Interpretations (text) EKG shows a normal sinus rhythm with ST-T wave changes noted in the anterior lateral leads Assessment and Plan Plan: Assessment and plan #1 symptoms of exertional shortness of breath with episode of chest pressure and tightness, troponin 0.086, 0.066, 0.054. EKG shows a normal sinus rhythm with anterior lateral ST-T wave changes clinical picture suggesting acute coronary syndrome. #2 known history of coronary artery disease with myocardial infarction in July of this year at which time patient underwent stenting of the LAD and circumflex, patient was also found at that time to have disease in the first OM and diagonal. #3 diabetes #4 hypertension #5 hyperlipidemia #6 prior history of smoking, patient quit smoking 8 years ago #7 obesity #8 recent cold-like symptoms #9 mildly elevated liver functions, could be secondary to mild congestive heart failure #10 mild exacerbation of congestive heart failure, diastolic acute on chronic Plan We will obtain a stat echocardiogram with Doppler study. Upon review of the patient's home medications, it does not appear that the patient was taking any antiplatelet other than aspirin, we will obtain the last progress note from the office. We'll put the patient on Plavix now, continue Lipitor, increasing the dose to 80 mg daily, continue Coreg, patient is also taking lisinopril and losartan, we will discontinue the lisinopril and continue with the losartan and at this time. Discontinue the Procardia, decrease the dose of clonidine, with the intention to ultimately discontinue it. We will also give the patient one time dose of IV Lasix. Patient has been educated regarding cardiac catheterization as well as the risks and benefits, she's been advised to undergo cardiac catheterization this admission. Further recommendations to follow. DNP note has been reviewed, I agree with a documented findings and plan of care. Patient was seen and examined.
[2018-12-03] MEDS ORDERED: ASPIRIN 325 MG TAB PO SCH (09:00)
[2018-12-03] MEDS ORDERED: LISINOPRIL 20 MG TAB PO SCH (09:00)
[2018-12-03] MEDS ORDERED: OZEMPIC 2 MG/1.5 ML SQ SCH ×2 (09:00→18:00)
[2018-12-03] MEDS ORDERED: ASPIRIN 81 MG PO SCH (09:00)
[2018-12-03] MEDS ORDERED: NITROGLYCERIN SL TABS 0.4 MG TAB SUBLINGUAL PRN ×2 (10:07→13:37)
[2018-12-03] MEDS ORDERED: ATORVASTATIN 80 MG TAB PO STA (10:07)
[2018-12-03] MEDS ORDERED: ASPIRIN 325 MG TAB PO STA (10:07)
[2018-12-03] MEDS ORDERED: ALPRAZolam 0.25 MG TAB PO PRN (10:07)
[2018-12-03] MEDS ORDERED: SODIUM CHLORIDE 0.9% 1,000 ML in EMPTY BAG 1 BAG IV ONE (10:07)
[2018-12-03] MEDS ORDERED: ALPRAZolam 0.5 MG TAB PO PRN (10:07)
[2018-12-03] MEDS: FERROUS SULFATE 325 MG TAB PO SCH (10:18)
[2018-12-03] MEDS: cloNIDine HCL 0.2 MG TAB PO SCH ×2 (10:19→23:03)
[2018-12-03] MEDS: hydrALAZINE HCL 25 MG TAB PO SCH ×3 (10:19→23:02)
[2018-12-03] MEDS: LOSARTAN 50 MG TAB PO SCH (10:19)
[2018-12-03] MEDS: ISOSORBIDE MONONITRATE ER 30 MG TAB.ER.24H PO SCH (10:19)
[2018-12-03] MEDS: FUROSEMIDE 10 MG/ML 4 ML VIAL IV STA ×2 (10:19→18:13)
[2018-12-03] MEDS: PIOGLITAZONE 15 MG TAB PO SCH (10:20)
[2018-12-03] MEDS: TRIAMTERENE-HCTZ 37.5-25MG 1 EACH CAP PO SCH (10:20)
--- NOTE | 2018-12-03 10:35 | ECHOF ---
Referral Reason:assess lvf MEASUREMENTS -------- HEIGHT: 157.5 cm WEIGHT: 101.2 kg BP: RVIDd: 2.6 cm (< 3.3) IVSd: 1.5 cm (0.6 - 1.1) LVIDd: 4.6 cm (3.9 - 5.3) LVPWd: 1.7 cm (0.6 - 1.1) IVSs: 2.0 cm LVIDs: 3.7 cm LVPWs: 1.8 cm LAESV Index (A-L): 42.01 ml/m Ao Diam: 2.1 cm (2.0 - 3.7) AV Cusp: 1.5 cm (1.5 - 2.6) LA Diam: 4.4 cm (2.7 - 3.8) MV EXCURSION: 17.007 mm (> 18.000) MV EF SLOPE: 178 mm/s (70 - 150) EPSS: 0.8 cm MV E Terrell: 1.18 m/s MV DecT: 199 ms MV A Terrell: 0.29 m/s MV E/A Ratio: 4.04 RAP: 5.00 mmHg RVSP: 17.61 mmHg FINDINGS -------- Sinus rhythm. This was a technically difficult study with suboptimal views. The left ventricular size is normal. There is moderate concentric left ventricular hypertrophy. O verall left ventricular systolic function is moderately impaired with, an EF between 35 - 40 %. Api kayla anterior LV wall motion is hypokinetic. Apical lateral LV wall motion is hypokinetic. Apica l inferior LV wall motion is hypokinetic. Apical septum LV wall motion is hypokinetic. The right ventricle is normal in size. LA is severely dilated >40 ml/m2 The right atrial size is normal. Lumason used Interatrial and interventricular septum intact. The aortic valve is trileaflet, and appears structurally normal. No aortic stenosis or regurgitation. The mitral valve is normal. Qhoh-mt-mgutuswe mitral regurgitation is present. The tricuspid valve appears structurally normal. Mild tricuspid regurgitation present. Right vent ricular systolic pressure is normal at < 35 mmHg. Trace/mild (physiologic) pulmonic regurgitation. The thrombus is located in the apical portion of the left ventricle. The aortic root size is normal. IVC Not well visulized. There is no pericardial effusion. CONCLUSIONS -------- 1. Sinus rhythm. 2. This was a technically difficult study with suboptimal views. 3. The left ventricular size is normal. 4. There is moderate concentric left ventricular hypertrophy. 5. Overall left ventricular systolic function is moderately impaired with, an EF between 35 - 40 %. 6. Apical anterior LV wall motion is hypokinetic. 7. Apical lateral LV wall motion is hypokinetic. 8. Apical inferior LV wall motion is hypokinetic. 9. Apical septum LV wall motion is hypokinetic. 10. LA is severely dilated >40 ml/m2 11. Lumason used 12. The aortic valve is trileaflet, and appears structurally normal. No aortic stenosis or regurgitat ion. 13. The mitral valve is normal. 14. Usat-tn-ukkvesup mitral regurgitation is present. 15. The tricuspid valve appears structurally normal. 16. Mild tricuspid regurgitation present. 17. Trace/mild (physiologic) pulmonic regurgitation. 18. The thrombus is located in the apical portion of the left ventricle. 19. The aortic root size is normal. 20. IVC Not well visulized. 21. There is no pericardial effusion. BAG MACHINE SET UP OPERATOR: Yanira Andrews RDCS
[2018-12-03] MEDS ORDERED: LIDOCAINE 1% INJ 10MG/ML (20 ML MDV) ONE (12:14)
[2018-12-03] MEDS ORDERED: fentaNYL (PF) 50 MCG/ML 2 ML AMP ONE (12:14)
[2018-12-03] MEDS ORDERED: SODIUM CHLORIDE 0.9% 1,000 ML IV ONE (12:35)
[2018-12-03 12:39] LABS: Glucose,Whole Blood 197 mg/dL (75-99)
[2018-12-03] MEDS ORDERED: VERAPAMIL 2.5 MG/ML 2 ML AMP ONE (12:42)
[2018-12-03] MEDS ORDERED: fentaNYL (PF) 50 MCG/ML 2 ML AMP IVP ONE (12:59)
[2018-12-03] MEDS ORDERED: LIDOCAINE 1% INJ 10MG/ML (20 ML MDV) SQ ONE (13:02)
[2018-12-03] MEDS ORDERED: methylPREDNISolone SOD SUCCI 125 MG/2 ML VIAL ONE (13:03)
[2018-12-03] MEDS ORDERED: diphenhydrAMINE 50 MG/ML 1 ML VIAL ONE (13:03)
[2018-12-03] MEDS ORDERED: diphenhydrAMINE 50 MG/ML 1 ML VIAL IVP ONE (13:06)
[2018-12-03] MEDS ORDERED: methylPREDNISolone SOD SUCCI 125 MG/2 ML VIAL IVP ONE (13:06)
[2018-12-03] MEDS ORDERED: VERAPAMIL SYRINGE (5 MG/10 ML) INTRAARTER ONE (13:07)
[2018-12-03] MEDS ORDERED: CLOPIDOGREL 75 MG TAB ONE (13:21)
[2018-12-03] MEDS ORDERED: BIVALIRUDIN 250 MG in SODIUM CHLORIDE 0.9% 50 ML IV ONE (13:23)
[2018-12-03] MEDS ORDERED: BIVALIRUDIN BOLUS 250 MG/50 ML IV ONE (13:23)
[2018-12-03] MEDS ORDERED: CLOPIDOGREL 75 MG TAB PO ONE (13:24)
[2018-12-03] MEDS ORDERED: IOPAMIDOL-370 125ML BTL INJ ONE (13:31)
[2018-12-03] MEDS ORDERED: ATROPINE SULFATE 0.1 MG/ML 10ML SYRINGE IV PRN (13:37)
[2018-12-03] MEDS ORDERED: ZOLPIDEM 5 MG TAB PO PRN (13:37)
[2018-12-03] MEDS ORDERED: RX INFO: IV CONTRAST WAS GIVEN 1 EACH MISC MISCELLANE PRN (13:37)
[2018-12-03] MEDS ORDERED: MAG HYDROX/AL HYDROX/SIMETH 30 ML CUP PO PRN (13:37)
[2018-12-03] MEDS ORDERED: SODIUM CHLORIDE 0.9% 1,000 ML IV SCH (13:45)
[2018-12-03 15:44] LABS: Hemoglobin A1C 9.6 % (4.0-6.0)
[2018-12-03 17:17] LABS: Glucose,Whole Blood 384 mg/dL (75-99)
[2018-12-03] MEDS: BETAMETHASONE DIPROPIONATE 0.05% CREAM 15 GM TUBE TOPICAL SCH (18:13)
--- NOTE | 2018-12-03 19:44 | PN ---
PROGRESS NOTE CHIEF COMPLAINT: Chest pain. HISTORY OF PRESENT ILLNESS: This lady is doing fairly well. Her sugars are elevated. She is going for cardiac cath today. PHYSICAL EXAM: Her face is flushed. Chest is clear. Cardiac exam is normal. Abdomen is soft, nontender. IMPRESSION: 1. Angina pectoris. 2. Coronary artery disease. 3. Uncontrolled diabetes. PLAN: Cardiac cath today and afterwards get her blood sugars under control before discharge. MMODL / IJN: [id number] /
--- NOTE | 2018-12-03 20:22 | CC ---
CARDIAC CATHETERIZATION REPORT Mrs. Franklin is a 38-year-old female with a known history of coronary artery disease, status post stenting done in July, who presented with symptoms of chest discomfort and mild troponin elevation. In view of that, recommendation was made regarding cardiac catheterization. The procedure, its risks and complications were discussed with the patient, who was in full understanding and agreement. PROCEDURE DESCRIPTION: Patient was brought to the rn labor delivery in a fasting, semi-sedated state after receiving fentanyl and Benadryl and achieving a moderate conscious sedated state. Using Xylocaine anesthesia and Seldinger technique, a 6-Kenyan sheath was introduced in the right radial artery. Selective right and left coronary angiography was performed using 5-Kenyan 3-1/2 bend, right and left Romelia catheters. Multiple views were taken of the coronary arteries, including hemiaxial views. Following that, catheters were removed and images were reviewed. The patient received intra-arterial verapamil. FINDINGS: LEFT MAIN: This is a large-sized vessel bifurcating into left circumflex and left anterior descending artery. Left main coronary artery has no evidence of high-grade stenosis. LEFT ANTERIOR DESCENDING ARTERY: This is a large-sized vessel reaching toward the apex with a wrap around the apex segment. The stented segment is patent. The first diagonal branch is small to moderate and has 99% stenosis at the ostium. The rest of the vessel has intimal disease. The LAD at the takeoff of the diagonal branch has a 20% plaque. In the distal segment of the LAD there is intimal disease of 20% to 30%. LEFT CIRCUMFLEX: This is a large nondominant vessel giving rise to one large obtuse marginal branch that has 3 branches. The stented branch is patent. The first branch has an 80% to 90% stenosis. The rest of the vessel has no high-grade stenosis. There is a plaque at the bifurcation of the third branch in the stented segment. RIGHT CORONARY ARTERY: This is a large dominant vessel bifurcating distally into PDA and posterolateral segment and branches. The right coronary artery proximally has a 20% plaque. The rest of the vessel has no high-grade stenosis. LEFT VENTRICULOGRAM: Left ventriculogram was not performed. CONCLUSION: 1. Patent stent to the LAD and to the obtuse marginal branch. 2. Obstructive disease involving the first branch of the obtuse marginal branch of about 80%. 3. Significant disease in a small diagonal branch. RECOMMENDATIONS: In view of findings and anatomy, I have recommended proceeding with angioplasty and stenting of the obtuse marginal branch. The procedures, its risks and complications were discussed with the patient, who is in full understanding and agreement. MMODL / IJN: [id number] /
--- NOTE | 2018-12-03 20:29 | PTCA ---
PERCUTANEOUSTRANS CORORONARY ANGIOGRAPHY Mrs. Franklin is a 38-year-old female with known history of coronary artery disease and history of hypertension who presented with symptoms of chest discomfort and mild troponin elevation. She underwent cardiac catheterization and was found to have significant stenosis in the first branch of the obtuse marginal branch. In view of that, recommendation was made regarding angioplasty and stenting. The procedure, its risks and complications were discussed with the patient, who was in full understanding and agreement. PROCEDURE DESCRIPTION: A 6-Kazakh FL3.5 guiding catheter was introduced in the system. After cannulating the left main, a 0.014 balanced medium weight J-wire was advanced across the lesion and positioned distally. Subsequently a 2.75 x 15 mm Xience Anu stent was deployed and post-dilated at 16 atmospheres. After the last inflation, after appropriate wait, the balloon and the guidewire were withdrawn back into the guiding catheter. Images were obtained and repeated. Those images reveal stable successful stenting. At that point, the guiding catheter, the balloon and the guidewire were removed. The sheath was removed. Hemostasis was obtained with deployment of a TR band. There was no immediate complication. Patient was returned to her room in stable condition. Of note, the patient had chest discomfort with the inflation that resolved at the end the procedure. She received Angiomax per protocol as well as oral loading dose of clopidogrel. RESULTS: Successful stenting of the first branch of the obtuse marginal branch with reduction of stenosis from 90% to 0%. RECOMMENDATIONS: Patient will be continued on aspirin, Plavix, beta kirsty, statin and KALPANA inhibitor. The importance of dual antiplatelet treatment was discussed with the patient and her family, and they are in full understanding and agreement. I have discussed with her the importance of staying on her Plavix. Duration of procedure was 26 minutes. MMODL / IJN: [id number] /
[2018-12-03] MEDS: HEPARIN SOD,PORK IN 0.45% NACL 25,000 UNIT in 0.45% NACL 1 250ML.BAG IV SCH (20:33)
[2018-12-03] MEDS ORDERED: ATORVASTATIN 80 MG TAB PO SCH (21:00)
[2018-12-03 21:42] LABS: Glucose,Whole Blood >600 mg/dL (75-99)
[2018-12-03 21:42] LABS: Glucose,Whole Blood >600 mg/dL (75-99)
[2018-12-03 22:38] LABS: African American GFR (CKD) 73 (>60 ml/min/1.73 sqM); Anion Gap 15 mmol/L; Blood Urea Nitrogen 28 mg/dL (7-17); Calcium 8.7 mg/dL (8.4-10.2); Carbon Dioxide 21 mmol/L (22-30); Chloride 96 mmol/L (98-107); Potassium 4.4 mmol/L (3.5-5.1); Sodium 132 mmol/L (137-145)
[2018-12-03 22:45] LABS: Glucose 581 mg/dL (74-99)
[2018-12-03] MEDS: MONTELUKAST 10 MG TAB PO SCH (23:02)
[2018-12-03] MEDS: INSULIN DETEMIR (LEVEMIR) 100 UNIT/ML SYR SQ SCH (23:03)
[2018-12-03] MEDS ORDERED: INSULIN ASPART (NovoLOG) 100 UNIT/ML VIAL SQ ONE (23:46)
[2018-12-04 02:38] LABS: Glucose,Whole Blood 417 mg/dL (75-99)
[2018-12-04 06:25] LABS: Basophils % (A) 0 %; Eosinophils % (A) 0 %; HCT 38.7 % (34.0-46.0); HGB 13.4 gm/dL (11.4-16.0); Lymphocytes % (A) 11 %; MCH 32.3 pg (25.0-35.0); MCHC 34.7 g/dL (31.0-37.0); MCV 93.1 fL (80.0-100.0); Mean Platelet Volume 7.9; Monocytes # (A) 0.3 k/uL (0-1.0); Monocytes % (A) 3 %; Neutrophils # (A) 7.4 k/uL (1.3-7.7); Neutrophils % (A) 83 %; Platelet Count 203 k/uL (150-450); RBC 4.16 m/uL (3.80-5.40); RDW 12.9 % (11.5-15.5); WBC 8.9 k/uL (3.8-10.6)
[2018-12-04 06:40] LABS: African American GFR (CKD) >90 (>60 ml/min/1.73 sqM); Anion Gap 10 mmol/L; Blood Urea Nitrogen 26 mg/dL (7-17); Calcium 9.2 mg/dL (8.4-10.2); Carbon Dioxide 23 mmol/L (22-30); Chloride 101 mmol/L (98-107); Glucose 291 mg/dL (74-99); Potassium 4.3 mmol/L (3.5-5.1); Sodium 134 mmol/L (137-145)
[2018-12-04] MEDS: CARVEDILOL 12.5 MG TAB PO SCH ×2 (06:53→17:19)
[2018-12-04 07:53] LABS: Glucose,Whole Blood 311 mg/dL (75-99)
[2018-12-04] MEDS: INSULIN ASPART (NovoLOG) 100 UNIT/ML VIAL SQ SCH ×7 (07:53→20:59)
[2018-12-04] MEDS ORDERED: ASPIRIN 325 MG TAB PO SCH (09:00)
[2018-12-04] MEDS: ISOSORBIDE MONONITRATE ER 30 MG TAB.ER.24H PO SCH (09:44)
[2018-12-04] MEDS: CLOPIDOGREL 75 MG TAB PO SCH (09:44)
[2018-12-04] MEDS: hydrALAZINE HCL 25 MG TAB PO SCH ×3 (09:44→22:15)
[2018-12-04] MEDS: TRIAMTERENE-HCTZ 37.5-25MG 1 EACH CAP PO SCH (09:44)
[2018-12-04] MEDS: PIOGLITAZONE 15 MG TAB PO SCH (09:44)
[2018-12-04] MEDS: FERROUS SULFATE 325 MG TAB PO SCH (09:45)
[2018-12-04] MEDS: ASPIRIN 81 MG PO SCH (09:45)
[2018-12-04] MEDS: LOSARTAN 50 MG TAB PO SCH (09:45)
[2018-12-04] MEDS: cloNIDine HCL 0.2 MG TAB PO SCH (09:45)
[2018-12-04] MEDS: BETAMETHASONE DIPROPIONATE 0.05% CREAM 15 GM TUBE TOPICAL SCH (09:47)
[2018-12-04 13:12] LABS: Glucose,Whole Blood 183 mg/dL (75-99)
[2018-12-04 14:12] VITALS: BMI 40.9
[2018-12-04] MEDS: SPIRONOLACTONE 25 MG TAB PO SCH (14:40)
--- NOTE | 2018-12-04 15:33 | P.PN ---
Subjective Progress Note Date: 12/04/18 This is a pleasant 38-year-old female with history of hypertension, hyperlipidemia, diabetes, coronary artery disease for which the patient underwent angioplasty and stenting of the LAD and circumflex artery, patient was also found at that time to have disease in the first obtuse marginal branch and the diagonal branch lesions. This was performed in July of this year in the setting of a myocardial infarction. She also had an echocardiogram with Doppler study performed which revealed an ejection fraction of 45-50% at that time. She presents to the hospital on this occasion with symptoms of midsternal chest pressure. According to the patient, she's been dealing with a cold recently and has felt herself to be much more short of breath than usual. She states she went into the shower, and developed midsternal chest pressure and tightness similar to her presentation with her myocardial infarction. She states she went down in the shower but did not pass out completely. For this reason she came to the emergency room for further evaluation and treatment. Her EKG on presentation here showed a normal sinus rhythm with nonspecific ST-T wave changes noted in the lateral leads. Subsequent EKG showed normal sinus rhythm with ST T wave changes noted in the anterior lateral leads. CTA of the chest was negative for any pulmonary embolism, it did show some small bilateral pleural effusions. Chest x-ray showed cardiomegaly, atelectasis versus consolidation, small bilateral effusions. I pressure on arrival here 116/70 with a heart rate of 90, 95% on 2 L of oxygen. White blood cell count 8.8, hemoglobin 12.9, platelet count 206. D-dimer 1.4, sodium 133, potassium 4.2, BUN 18 and creatinine 0.8. Blood sugar on arrival here 527, patient had been given steroids as an outpatient previous to this. Her AST on arrival 51, ALT 99, troponins 0.086, 0.066, 0.054. BNP level 1270. Cholesterol level 183, LDL 103, HDL 35, triglycerides are 227. At the time of my examination this morning, patient is currently chest pain-free, she just feels extremely tired. 12/04/2018 Patient was taken to the cardiac catheterization lab yesterday underwent successful stenting of the first branch of the obtuse marginal. She was seen and examined this morning, patient states that she did have one episode of chest discomfort earlier this morning relieved with nitroglycerin. No EKG changes at that time. At the time of my examination in the afternoon the patient was chest pain-free. Blood pressure 122/70 with a heart rate in the 70s, 98% on room air. White blood cell count 8.9, hemoglobin 13.4, platelet count 203. Sodium 134, potassium 4.3, BUN 26 and creatinine 0.8. Repeat echo cardiac gram with Doppler study revealed an ejection fraction of 35-40%, apical anterior lateral inferior and septal wall hypokinesia noted. Mild to moderate mitral regurgitation. Objective - Vital Signs Vital signs: Vital Signs Temp 96.3 F L 12/04/18 11:40 Pulse 78 12/04/18 11:40 Resp 18 12/04/18 11:40 BP 123/75 12/04/18 11:40 Pulse Ox 98 12/04/18 11:40 Intake & Output 12/03/18 12/04/18 12/04/18 18:59 06:59 18:59 Intake Total 650 480 Balance 650 480 Weight 102.4 kg 101.6 kg 101.6 kg Intake: IV 170 Oral 480 480 Other: Voiding Method Toilet # Voids 2 # Bowel Movements 1 - Exam PHYSICAL EXAMINATION: GENERAL: 38-year-old female in no acute distress at the time of my examination HEENT: Head is atraumatic, normocephalic. Pupils equal, round. Sclera anicteric. Conjunctiva are clear. Mucous membranes of the mouth are moist. Neck is supple. There is no elevated jugular venous pressure. No carotid bruit is heard. HEART EXAMINATION: R S1 and S2 1 systolic murmur is heard CHEST EXAMINATION: Lungs are clear to auscultation with mild diminished air entry to the bases . ABDOMEN: Soft, obese, nontender. Bowel sounds are heard. No organomegaly noted. EXTREMITIES: 2+ peripheral pulses with trace evidence of peripheral edema and no calf tenderness noted. Right radial site clean and dry, good distal pulse. NEUROLOGIC patient is awake, alert and oriented 3 . - Labs CBC & Chem 7: 12/04/18 06:02 12/04/18 06:02 Labs: Abnormal Lab Results - Last 24 Hours (Table) 12/03/18 12/03/18 12/03/18 Range/Units 03:40 16:57 21:38 Sodium (137-145) mmol/L Chloride (98-107) mmol/L Carbon Dioxide (22-30) mmol/L BUN (7-17) mg/dL Creatinine (0.52-1.04) mg/dL Glucose (74-99) mg/dL POC Glucose (mg/dL) 384 H >600 H (75-99) mg/dL Hemoglobin A1c 9.6 H (4.0-6.0) % 12/03/18 12/03/18 12/04/18 Range/Units 21:41 22:13 02:25 Sodium 132 L (137-145) mmol/L Chloride 96 L (98-107) mmol/L Carbon Dioxide 21 L (22-30) mmol/L BUN 28 H (7-17) mg/dL Creatinine 1.11 H (0.52-1.04) mg/dL Glucose 581 H* (74-99) mg/dL POC Glucose (mg/dL) >600 H 417 H (75-99) mg/dL Hemoglobin A1c (4.0-6.0) % 12/04/18 12/04/18 12/04/18 Range/Units 06:02 07:48 12:45 Sodium 134 L (137-145) mmol/L Chloride (98-107) mmol/L Carbon Dioxide (22-30) mmol/L BUN 26 H (7-17) mg/dL Creatinine (0.52-1.04) mg/dL Glucose 291 H (74-99) mg/dL POC Glucose (mg/dL) 311 H 183 H (75-99) mg/dL Hemoglobin A1c (4.0-6.0) % Assessment and Plan Plan: Assessment and plan #1 non-STEMI, status post successful stenting of the first branch of the obtuse marginal #2 known history of coronary artery disease with myocardial infarction in July of this year at which time patient underwent stenting of the LAD and circumflex, patient was also found at that time to have disease in the first OM and diagonal. #3 diabetes #4 hypertension #5 hyperlipidemia #6 prior history of smoking, patient quit smoking 8 years ago #7 obesity #8 recent cold-like symptoms #9 mildly elevated liver functions, could be secondary to mild congestive heart failure #10 mild exacerbation of congestive heart failure, diastolic acute on chronic Plan From cardiology's perspective, we'll continue to observe the patient for another 24 hours, plan for discharge home in the morning if stable. DNP note has been reviewed, I agree with a documented findings and plan of care. Patient was seen and examined.
[2018-12-04 17:12] LABS: Glucose,Whole Blood 148 mg/dL (75-99)
--- NOTE | 2018-12-04 17:30 | PN ---
PROGRESS NOTE CHIEF COMPLAINT: CAD. HISTORY OF PRESENT ILLNESS: This lady underwent stenting of the circumflex yesterday. She is doing fairly well, but her blood sugars skyrocketed last night. She has had a little bit of chest discomfort this morning, otherwise doing well. PHYSICAL EXAM: Chest is clear. Cardiac exam is normal. Abdomen is soft, nontender. IMPRESSION: 1. Coronary artery disease. 2. Uncontrolled diabetes. PLAN: Steadily increase her insulin management until she is brought under good control before she is discharged. MMODL / IJN: [id number] /
[2018-12-04 18:52] LABS: Glucose,Whole Blood 218 mg/dL (75-99)
[2018-12-04 19:52] LABS: Glucose,Whole Blood 222 mg/dL (75-99)
[2018-12-04] MEDS: ATORVASTATIN 80 MG TAB PO SCH (20:59)
[2018-12-04] MEDS: MONTELUKAST 10 MG TAB PO SCH (20:59)
[2018-12-04] MEDS: INSULIN DETEMIR (LEVEMIR) 100 UNIT/ML SYR SQ SCH (20:59)
[2018-12-05 06:47] LABS: Glucose,Whole Blood 167 mg/dL (75-99)
[2018-12-05 07:20] LABS: Basophils % (A) 0 %; Eosinophils # (A) 0.1 k/uL (0-0.7); Eosinophils % (A) 1 %; HCT 40.7 % (34.0-46.0); HGB 13.4 gm/dL (11.4-16.0); Lymphocytes # (A) 2.4 k/uL (1.0-4.8); Lymphocytes % (A) 33 %; MCH 30.7 pg (25.0-35.0); MCHC 32.9 g/dL (31.0-37.0); MCV 93.2 fL (80.0-100.0); Mean Platelet Volume 8.3; Monocytes # (A) 0.4 k/uL (0-1.0); Monocytes % (A) 5 %; Neutrophils # (A) 4.2 k/uL (1.3-7.7); Neutrophils % (A) 58 %; Platelet Count 214 k/uL (150-450); RBC 4.37 m/uL (3.80-5.40); RDW 13.1 % (11.5-15.5); WBC 7.3 k/uL (3.8-10.6)
[2018-12-05] MEDS: INSULIN ASPART (NovoLOG) 100 UNIT/ML VIAL SQ SCH ×7 (07:20→22:10)
[2018-12-05] MEDS: CARVEDILOL 12.5 MG TAB PO SCH ×2 (07:23→17:49)
[2018-12-05] MEDS: LOSARTAN 50 MG TAB PO SCH (10:33)
[2018-12-05] MEDS: hydrALAZINE HCL 25 MG TAB PO SCH ×3 (10:33→21:41)
[2018-12-05] MEDS: PIOGLITAZONE 15 MG TAB PO SCH (10:33)
[2018-12-05] MEDS: SPIRONOLACTONE 25 MG TAB PO SCH (10:34)
[2018-12-05] MEDS: FERROUS SULFATE 325 MG TAB PO SCH (10:34)
[2018-12-05] MEDS: ASPIRIN 81 MG PO SCH (10:34)
[2018-12-05] MEDS: CLOPIDOGREL 75 MG TAB PO SCH (10:34)
[2018-12-05] MEDS: cloNIDine HCL 0.2 MG TAB PO SCH (10:34)
[2018-12-05] MEDS: ISOSORBIDE MONONITRATE ER 30 MG TAB.ER.24H PO SCH (10:34)
[2018-12-05] MEDS: BETAMETHASONE DIPROPIONATE 0.05% CREAM 15 GM TUBE TOPICAL SCH (10:36)
[2018-12-05 12:21] LABS: Glucose,Whole Blood 163 mg/dL (75-99)
--- NOTE | 2018-12-05 15:56 | CDI ---
Documentation Clarification Form Date: 12/05/2018 3:02:17 PM From: Delicia Adams RN, CCDS Admit Date: 12/02/2018 1:07:00 PM Patient Name: Petty Franklin Visit Number: [id number] Discharge Date: ATTENTION: The Clinical Documentation Specialists (CDI) and [facility] Coding Staff appreciate your assistance in clarifying documentation. Please respond to the clarification below the line at the bottom and electronically sign. The CDI & [facility] Coding staff will review the response and follow-up if needed. Please note: Queries are made part of the Legal Health Record. If you have any questions, please contact the author of this message via ITS. Dr. Odell Sena The patients principal diagnosis has not been clearly identified and requires clarification. 12/04/18 Cardiology consult documents: non-STEMI status post successful stenting of the first branch of the obtuse marginal. History/Risk factors: Coronary artery disease, previous myocardial infarction, Hypertension, Diabetes Mellitus Clinical Indicators: 38-year-old female who present with substernal chest discomfort similar to her cardiac pain. Lab findings: Troponin I 0.086, 0.066, 0.054 BNP 1270 BUN 18, CR 0.8 Chest CTA: mild cardiomegaly, small bilateral effusion. Negative for pulmonary embolus EKG: Normal sinus rhythm with nonspecific ST-T wave changes noted in the anterior lateral leads. Vital Signs: 116/70 90 95% on 2 NC ECHO: Left ventricular systolic function is moderately impaired with an EF between 35-40 % Treatment: Telemetry monitoring ECHO Plavix PO Coreg PO, Lasix IV x1, Lipitor PO, Catapres PO, Apresoline PO, Imdur PO Monitor Labs: Troponin I Left Heart Catheterization, PTCA stent of the first branch of the obtuse marginal. In your professional opinion, can you please clarify which diagnosis, after study, accounted for the patients presenting symptoms and was the reason chiefly responsible for the admission? Non-ST elevated myocardial infarction Angina pectoris, unstable with known history of coronary artery disease Other (Specify) (Last Revision: June 2017) MTDD
--- NOTE | 2018-12-05 16:14 | CDI ---
Documentation Clarification Form Date: 12/05/2018 3:57:12 PM From: Delicia Adams RN, CCDS Admit Date: 12/02/2018 1:07:00 PM Patient Name: Petty Franklin Visit Number: [id number] Discharge Date: ATTENTION: The Clinical Documentation Specialists (CDI) and [facility] Coding Staff appreciate your assistance in clarifying documentation. Please respond to the clarification below the line at the bottom and electronically sign. The CDI & [facility] Coding staff will review the response and follow-up if needed. Please note: Queries are made part of the Legal Health Record. If you have any questions, please contact the author of this message via ITS. Dr. Odell Sena The patient has diabetes, Uncontrolled diabetes as indicated on progress note on 12/03/18 and subsequent documentation and clarification is needed. History/Risk Factors: Coronary artery disease, Diabetes Mellitus, Hypertension Clinical Indicators: 38-year-old female per your progress notes sugars are elevated. She was on Metformin BID at home. On admission Blood sugars: 380, 333, 411, 527, 422 Hemoglobin A1c 9.6 Treatment: Monitor Blood sugars with coverage per orders Novolog SQ TID Levemir 40 SQ HS Dietitian Consult: Education, Diabetic diet In order to capture the severity of Illness and necessary documentation specificity, please clarify: DM Type 2 with Hyperglycemia Other, please specify Unable to Determine (Last Revision: December 2016) MTDD
--- NOTE | 2018-12-05 16:23 | P.PN ---
Subjective Progress Note Date: 12/05/18 This is a pleasant 38-year-old female with history of hypertension, hyperlipidemia, diabetes, coronary artery disease for which the patient underwent angioplasty and stenting of the LAD and circumflex artery, patient was also found at that time to have disease in the first obtuse marginal branch and the diagonal branch lesions. This was performed in July of this year in the setting of a myocardial infarction. She also had an echocardiogram with Doppler study performed which revealed an ejection fraction of 45-50% at that time. She presents to the hospital on this occasion with symptoms of midsternal chest pressure. According to the patient, she's been dealing with a cold recently and has felt herself to be much more short of breath than usual. She states she went into the shower, and developed midsternal chest pressure and tightness similar to her presentation with her myocardial infarction. She states she went down in the shower but did not pass out completely. For this reason she came to the emergency room for further evaluation and treatment. Her EKG on presentation here showed a normal sinus rhythm with nonspecific ST-T wave changes noted in the lateral leads. Subsequent EKG showed normal sinus rhythm with ST T wave changes noted in the anterior lateral leads. CTA of the chest was negative for any pulmonary embolism, it did show some small bilateral pleural effusions. Chest x-ray showed cardiomegaly, atelectasis versus consolidation, small bilateral effusions. I pressure on arrival here 116/70 with a heart rate of 90, 95% on 2 L of oxygen. White blood cell count 8.8, hemoglobin 12.9, platelet count 206. D-dimer 1.4, sodium 133, potassium 4.2, BUN 18 and creatinine 0.8. Blood sugar on arrival here 527, patient had been given steroids as an outpatient previous to this. Her AST on arrival 51, ALT 99, troponins 0.086, 0.066, 0.054. BNP level 1270. Cholesterol level 183, LDL 103, HDL 35, triglycerides are 227. At the time of my examination this morning, patient is currently chest pain-free, she just feels extremely tired. 12/04/2018 Patient was taken to the cardiac catheterization lab yesterday underwent successful stenting of the first branch of the obtuse marginal. She was seen and examined this morning, patient states that she did have one episode of chest discomfort earlier this morning relieved with nitroglycerin. No EKG changes at that time. At the time of my examination in the afternoon the patient was chest pain-free. Blood pressure 122/70 with a heart rate in the 70s, 98% on room air. White blood cell count 8.9, hemoglobin 13.4, platelet count 203. Sodium 134, potassium 4.3, BUN 26 and creatinine 0.8. Repeat echo cardiac gram with Doppler study revealed an ejection fraction of 35-40%, apical anterior lateral inferior and septal wall hypokinesia noted. Mild to moderate mitral regurgitation. 12/05/2018 Patient seen and examined this morning, complaining of feeling a little lightheaded with ambulation, her blood pressure through the night was in the 90s, overall today has been stable. We will continue to observe her for another 24 hours and plan for discharge home in the morning. Objective - Vital Signs Vital signs: Vital Signs Temp 98.1 F 12/05/18 15:31 Pulse 83 12/05/18 15:35 Resp 16 12/05/18 15:35 BP 123/92 12/05/18 15:31 Pulse Ox 98 12/05/18 15:31 Intake & Output 12/04/18 12/05/18 12/05/18 18:59 06:59 18:59 Intake Total 1200 840 Balance 1200 840 Weight 101.6 kg 102.9 kg Intake: Oral 1200 840 Other: Voiding Method Toilet Toilet # Voids 1 1 # Bowel Movements 1 - Exam PHYSICAL EXAMINATION: GENERAL: 38-year-old female in no acute distress at the time of my examination HEENT: Head is atraumatic, normocephalic. Pupils equal, round. Sclera anicteric. Conjunctiva are clear. Mucous membranes of the mouth are moist. Neck is supple. There is no elevated jugular venous pressure. No carotid bruit is heard. HEART EXAMINATION: R S1 and S2 1 systolic murmur is heard CHEST EXAMINATION: Lungs are clear to auscultation with mild diminished air entry to the bases . ABDOMEN: Soft, obese, nontender. Bowel sounds are heard. No organomegaly noted. EXTREMITIES: 2+ peripheral pulses with trace evidence of peripheral edema and no calf tenderness noted. Right radial site clean and dry, good distal pulse. NEUROLOGIC patient is awake, alert and oriented 3 . - Labs CBC & Chem 7: 12/05/18 06:01 12/04/18 06:02 Labs: Abnormal Lab Results - Last 24 Hours (Table) 12/04/18 12/04/18 12/04/18 Range/Units 17:00 18:42 19:51 POC Glucose (mg/dL) 148 H 218 H 222 H (75-99) mg/dL 12/05/18 12/05/18 Range/Units 06:45 12:17 POC Glucose (mg/dL) 167 H 163 H (75-99) mg/dL Assessment and Plan Plan: Assessment and plan #1 non-STEMI, status post successful stenting of the first branch of the obtuse marginal #2 known history of coronary artery disease with myocardial infarction in July of this year at which time patient underwent stenting of the LAD and circumflex, heri olivares was also found at that time to have disease in the first OM and diagonal. #3 diabetes #4 hypertension #5 hyperlipidemia #6 prior history of smoking, patient quit smoking 8 years ago #7 obesity #8 recent cold-like symptoms #9 mildly elevated liver functions, could be secondary to mild congestive heart failure #10 mild exacerbation of congestive heart failure, diastolic acute on chronic Plan From cardiology's perspective, we'll continue to observe the patient for another 24 hours, plan for discharge home in the morning if stable. DNP note has been reviewed, I agree with a documented findings and plan of care. Patient was seen and examined.
[2018-12-05 17:21] LABS: Glucose,Whole Blood 227 mg/dL (75-99)
--- NOTE | 2018-12-05 18:46 | PN ---
PROGRESS NOTE CHIEF COMPLAINT: Chest pain. HISTORY OF PRESENT ILLNESS: Last night this lady developed an episode of dizziness and weakness and her blood pressure dropped to 99/54. She feels a little bit better today. Sugars are improved. PHYSICAL EXAMINATION: Face is still flushed. Chest is clear. Cardiac exam is normal. Abdomen is soft, nontender. IMPRESSION: 1. Coronary artery disease. 2. Episode last night of hypotension. 3. Uncontrolled diabetes. PLAN: Discuss with Cardiology. It is not clear if she will be going home today or not. MMODL / IJN: [id number] /
[2018-12-05 21:00] LABS: Glucose,Whole Blood 171 mg/dL (75-99)
[2018-12-05] MEDS: ATORVASTATIN 80 MG TAB PO SCH (21:40)
[2018-12-05] MEDS: MONTELUKAST 10 MG TAB PO SCH (21:41)
[2018-12-05] MEDS: INSULIN DETEMIR (LEVEMIR) 100 UNIT/ML SYR SQ SCH (22:10)
[2018-12-06 06:59] LABS: Glucose,Whole Blood 179 mg/dL (75-99)
[2018-12-06] MEDS: CARVEDILOL 12.5 MG TAB PO SCH (07:35)
[2018-12-06] MEDS: INSULIN ASPART (NovoLOG) 100 UNIT/ML VIAL SQ SCH ×4 (07:36→12:53)
[2018-12-06 07:46] LABS: Glucose,Whole Blood 162 mg/dL (75-99)
[2018-12-06] MEDS: ASPIRIN 81 MG PO SCH (08:36)
[2018-12-06] MEDS: LOSARTAN 50 MG TAB PO SCH (08:36)
[2018-12-06] MEDS: ISOSORBIDE MONONITRATE ER 30 MG TAB.ER.24H PO SCH (08:36)
[2018-12-06] MEDS: CLOPIDOGREL 75 MG TAB PO SCH (08:36)
[2018-12-06] MEDS: SPIRONOLACTONE 25 MG TAB PO SCH (08:36)
[2018-12-06] MEDS: FERROUS SULFATE 325 MG TAB PO SCH (08:36)
[2018-12-06] MEDS: cloNIDine HCL 0.2 MG TAB PO SCH (08:36)
[2018-12-06] MEDS: hydrALAZINE HCL 25 MG TAB PO SCH (08:36)
[2018-12-06] MEDS: PIOGLITAZONE 15 MG TAB PO SCH (08:37)
[2018-12-06] MEDS: BETAMETHASONE DIPROPIONATE 0.05% CREAM 15 GM TUBE TOPICAL SCH (08:37)
[2018-12-06 08:42] VITALS: TEMP 98.2
[2018-12-06 12:34] LABS: Glucose,Whole Blood 151 mg/dL (75-99)
[2018-12-06 12:55] VITALS: BP 140/86; PULSE 66; RESP 16
--- NOTE | 2018-12-06 14:10 | P.PN ---
Subjective Progress Note Date: 12/06/18 This is a pleasant 38-year-old female with history of hypertension, hyperlipidemia, diabetes, coronary artery disease for which the patient underwent angioplasty and stenting of the LAD and circumflex artery, patient was also found at that time to have disease in the first obtuse marginal branch and the diagonal branch lesions. This was performed in July of this year in the setting of a myocardial infarction. She also had an echocardiogram with Doppler study performed which revealed an ejection fraction of 45-50% at that time. She presents to the hospital on this occasion with symptoms of midsternal chest pressure. According to the patient, she's been dealing with a cold recently and has felt herself to be much more short of breath than usual. She states she went into the shower, and developed midsternal chest pressure and tightness similar to her presentation with her myocardial infarction. She states she went down in the shower but did not pass out completely. For this reason she came to the emergency room for further evaluation and treatment. Her EKG on presentation here showed a normal sinus rhythm with nonspecific ST-T wave changes noted in the lateral leads. Subsequent EKG showed normal sinus rhythm with ST T wave changes noted in the anterior lateral leads. CTA of the chest was negative for any pulmonary embolism, it did show some small bilateral pleural effusions. Chest x-ray showed cardiomegaly, atelectasis versus consolidation, small bilateral effusions. I pressure on arrival here 116/70 with a heart rate of 90, 95% on 2 L of oxygen. White blood cell count 8.8, hemoglobin 12.9, platelet count 206. D-dimer 1.4, sodium 133, potassium 4.2, BUN 18 and creatinine 0.8. Blood sugar on arrival here 527, patient had been given steroids as an outpatient previous to this. Her AST on arrival 51, ALT 99, troponins 0.086, 0.066, 0.054. BNP level 1270. Cholesterol level 183, LDL 103, HDL 35, triglycerides are 227. At the time of my examination this morning, patient is currently chest pain-free, she just feels extremely tired. 12/04/2018 Patient was taken to the cardiac catheterization lab yesterday underwent successful stenting of the first branch of the obtuse marginal. She was seen and examined this morning, patient states that she did have one episode of chest discomfort earlier this morning relieved with nitroglycerin. No EKG changes at that time. At the time of my examination in the afternoon the patient was chest pain-free. Blood pressure 122/70 with a heart rate in the 70s, 98% on room air. White blood cell count 8.9, hemoglobin 13.4, platelet count 203. Sodium 134, potassium 4.3, BUN 26 and creatinine 0.8. Repeat echo cardiac gram with Doppler study revealed an ejection fraction of 35-40%, apical anterior lateral inferior and septal wall hypokinesia noted. Mild to moderate mitral regurgitation. 12/05/2018 Patient seen and examined this morning, complaining of feeling a little lightheaded with ambulation, her blood pressure through the night was in the 90s, overall today has been stable. We will continue to observe her for another 24 hours and plan for discharge home in the morning. 12/06/2018 Patient was seen and examined this morning, feels well, denies any chest pain, breathing is stable, denies any lightheadedness or dizziness. Anticipating discharge home today. Objective - Vital Signs Vital signs: Vital Signs Temp 98.2 F 12/06/18 08:00 Pulse 66 12/06/18 12:00 Resp 16 12/06/18 12:00 BP 140/86 12/06/18 12:00 Pulse Ox 99 12/06/18 12:00 Intake & Output 12/05/18 12/06/18 12/06/18 18:59 06:59 18:59 Intake Total 840 440 Balance 840 440 Weight 103.7 kg Intake: Oral 840 440 Other: Voiding Method Toilet Toilet Toilet # Voids 1 1 2 # Bowel Movements 1 - Exam PHYSICAL EXAMINATION: GENERAL: 38-year-old female in no acute distress at the time of my examination HEENT: Head is atraumatic, normocephalic. Pupils equal, round. Sclera anicteric. Conjunctiva are clear. Mucous membranes of the mouth are moist. Nec k is supple. There is no elevated jugular venous pressure. No carotid bruit is heard. HEART EXAMINATION: R S1 and S2 1 systolic murmur is heard CHEST EXAMINATION: Lungs are clear to auscultation with mild diminished air entry to the bases . ABDOMEN: Soft, obese, nontender. Bowel sounds are heard. No organomegaly noted. EXTREMITIES: 2+ peripheral pulses with trace evidence of peripheral edema and no calf tenderness noted. Right radial site clean and dry, good distal pulse. NEUROLOGIC patient is awake, alert and oriented 3 . - Labs CBC & Chem 7: 12/05/18 06:01 12/04/18 06:02 Labs: Abnormal Lab Results - Last 24 Hours (Table) 12/05/18 12/05/18 12/06/18 Range/Units 17:02 20:51 06:57 POC Glucose (mg/dL) 227 H 171 H 179 H (75-99) mg/dL 12/06/18 12/06/18 Range/Units 07:35 12:33 POC Glucose (mg/dL) 162 H 151 H (75-99) mg/dL Assessment and Plan Plan: Assessment and plan #1 non-STEMI, status post successful stenting of the first branch of the obtuse marginal #2 known history of coronary artery disease with myocardial infarction in July of this year at which time patient underwent stenting of the LAD and circumflex, patient was also found at that time to have disease in the first OM and diagonal. #3 diabetes #4 hypertension #5 hyperlipidemia #6 prior history of smoking, patient quit smoking 8 years ago #7 obesity #8 recent cold-like symptoms #9 mildly elevated liver functions, could be secondary to mild congestive heart failure #10 mild exacerbation of congestive heart failure, diastolic acute on chronic Plan From cardiology's perspective, patient may be able to be discharged home today. We'll make her a follow-up appointment in the office to see Dr. Davila post discharge. DNP note has been reviewed, I agree with a documented findings and plan of care. Patient was seen and examined.
--- NOTE | 2018-12-06 23:59 | DS ---
DISCHARGE SUMMARY CHIEF COMPLAINT: Chest pain and pressure. HISTORY OF PRESENT ILLNESS AND PHYSICAL EXAM: Details of this lady's history and physical can be found in the initial workup. LABORATORY STUDIES: While she was in the hospital, she had laboratory studies, details of which can be found in the laboratory section of her chart. COURSE IN HOSPITAL: After admission, she was placed on bedrest, started on intravenous fluids and she had serial EKGs and enzymes. She was taken to the operating room where she was found to have a narrowing of the circumflex, which was dilated and stented. Postoperatively she did well. She did have a single episode after that where she realized slight chest pain and drop in her blood pressure, but this reversed very quickly. Sugars are also quite high while she was in the hospital and insulin was instituted. She was doing well and it was felt that she could go home on the . We will see her in the office in a day or 2 and continue to monitor her blood sugars and diabetic management. FINAL DIAGNOSES: 1. Angina pectoris. 2. Coronary artery disease. 3. Uncontrolled diabetes mellitus. OPERATIONS: Cardiac cath with stenting. CONSULTATION: Cardiology. She is improved. MMODL / IJN: [id number] /
--- NOTE | 2018-12-07 07:15 | MISC ---
MISCELLANOUS REPORT QUERY Will be other and be unstable angina. MMODL / IJN: [id number] /
--- NOTE | 2018-12-07 07:15 | MISC ---
MISCELLANOUS REPORT QUERY Type 2 diabetes with hyperglycemia. MMODL / IJN: [id number] /
== END 2018-12-06 15:50 | disposition home health service (06) | DRG 246 ==
LOC: EC 10:42 → 3SCARD 13:07
PROVIDERS: ADMIT Family Medicine; ATTEND Family Medicine
PROC: B2111ZZ Fluoroscopy of Multiple Coronary Arteries using Low Osmolar Contrast (ICD-10-PCS; 2018-12-03)
PROC: 027034Z Dilation of Coronary Artery, One Artery with Drug-eluting Intraluminal Device, Percutaneous Approach (ICD-10-PCS; principal; 2018-12-03 12:29)
PROC: 4A023N7 Measurement of Cardiac Sampling and Pressure, Left Heart, Percutaneous Approach (ICD-10-PCS; 2018-12-03 12:29)
DX: I25.110 Atherosclerotic heart disease of native coronary artery with unstable angina pectoris (principal); I50.33 Acute on chronic diastolic (congestive) heart failure; Z68.41 Body mass index [BMI] 40.0-44.9, adult; I11.0 Hypertensive heart disease with heart failure; Z95.5 Presence of coronary angioplasty implant and graft; Z87.891 Personal history of nicotine dependence; E11.65 Type 2 diabetes mellitus with hyperglycemia; E66.9 Obesity, unspecified; E78.5 Hyperlipidemia, unspecified; F20.9 Schizophrenia, unspecified; F31.9 Bipolar disorder, unspecified; I25.2 Old myocardial infarction; I34.0 Nonrheumatic mitral (valve) insufficiency; J45.909 Unspecified asthma, uncomplicated; K21.9 Gastro-esophageal reflux disease without esophagitis; Z79.4 Long term (current) use of insulin; Z79.82 Long term (current) use of aspirin; Z79.899 Other long term (current) drug therapy; Z82.49 Family history of ischemic heart disease and other diseases of the circulatory system; Z87.11 Personal history of peptic ulcer disease; Z87.442 Personal history of urinary calculi; Z88.1 Allergy status to other antibiotic agents; Z88.5 Allergy status to narcotic agent; Z88.0 Allergy status to penicillin; Z88.8 Allergy status to other drugs, medicaments and biological substances; Z79.02 Long term (current) use of antithrombotics/antiplatelets; Z85.6 Personal history of leukemia
CPT/HCPCS: 36415; 71046; 71275; 80048; 80053; 80061; 82009; 83036; 83880; 84484; 85025; 85347; 85379; 85610; 85730; 93005; 93306; 93454; 96361; 96365; 96375; 96376; 99285; C1874

== ENCOUNTER → 2019-01-04 | Outpatient (CLI) | payer OTHER ==
--- NOTE | 2019-01-04 07:34 | US ---
EXAMINATION TYPE: US duplex aorta DATE OF EXAM: 01/04/2019 COMPARISON: NONE CLINICAL HISTORY: I25.2 prior [place], R10.81 abdominal tenderness .... Abdominal tenderness Exam limitat ions due to body habitus. EXAM MEASUREMENTS: Abdominal Aorta: Proximal: 2.0 x 2.1 cm Mid: 1.7 x 1.6 cm Distal: 1.9 cm Bifurcation: Obscured by bowel gas. No sonographic evidence of abdominal aortic aneurysm in the visualized portions of the abdominal aort a. No significant atherosclerosis seen sonographically. IMPRESSION: Bifurcation of the aorta is obscured by bowel gas. The visualized portions of the abdomin al aorta there is no abdominal aortic aneurysm seen.
== END | disposition home or self-care (01) ==
LOC: RADUSWWP 07:02
PROVIDERS: ATTEND Family Medicine
DX: R10.819 Abdominal tenderness, unspecified site (principal); E11.65 Type 2 diabetes mellitus with hyperglycemia; I25.2 Old myocardial infarction; Z88.0 Allergy status to penicillin; Z88.3 Allergy status to other anti-infective agents; Z88.1 Allergy status to other antibiotic agents; Z88.6 Allergy status to analgesic agent
CPT/HCPCS: 93979

== ENCOUNTER 2019-04-27 19:42 | Inpatient (IN) | payer MEDICARE, OTHER ==
[2019-04-27] MEDS ORDERED: LORazepam 2 MG/ML INJ IV STA (20:18)
--- NOTE | 2019-04-27 20:23 | ED ---
General Adult HPI - General Chief complaint: Chest Pain Stated complaint: Chest Pain Time Seen by Provider: 04/27/19 19:56 Source: EMS Mode of arrival: EMS Limitations: no limitations - History of Present Illness Initial comments: Dictation was produced using [employer] dictation software. please excuse any grammatical, word or spelling errors. Chief Complaint: 38-year-old female with extensive history of coronary artery disease, status post multiple coronary artery stents presents with chest pain. History of Present Illness: 38-year-old female she has extensive history of chest pain, coronary artery disease. At the age of 38 short he has 3 cardiac stents. She states she's been Multiple times. She reports that today she's been having some chest pain. She states it's sharp and located to the left anterior chest. Denies any radiation of symptoms. She does report that it's worse with deep inspiration. She is slightly short of breath. Patient states she feels anxious because of the recent of her cat. He was at [facility] when she began expressing symptoms. She took an aspirin and nitro with no significant improvement. EMS was called and patient was brought to the emergency department. Patient states that since being given nitroglycerin her symptoms have improved although still there. Denies any coughing. No constitutional symptoms. She does report she feels mildly anxious. The ROS documented in this emergency department record has been reviewed and confirmed by me. Those systems with pertinent positive or negative responses have been documented in the HPI. All other systems are other negative and/or noncontributory. PHYSICAL EXAM: General Impression: Alert and oriented x3, not in acute distress HEENT: Normocephalic atraumatic, extra-ocular movements intact, pupils equal and reactive to light bilaterally, mucous membranes moist. Cardiovascular: Tachycardic, no murmurs Chest: Lungs clear to auscultation bilaterally, no rhonchi, no wheeze, no rales Abdomen: Bowel sounds present, abdomen soft, non-tender, non-distended, no organomegaly Musculoskeletal: Pulses present and equal in all extremities, no peripheral edema Motor: no focal deficits noted Neurological: CN II-XII grossly intact, no focal motor or sensory deficits noted Skin: Intact with no visualized rashes Psych: Anxious ED course: 38-year-old who presents with chest pain. She has significant cardiac history. Vital signs upon arrival shows heart rate of 118, respiratory rate of 26, blood pressure 212/117. Chart review was performed. Patient has had multiple cardiac cath performed at our hospital with stent placement. EKG does not show ST segment elevation [place] or any signs of ischemia. Given patient's history there is concern of acute coronary syndrome versus pulmonary embolus. Patient's been evaluated for thromboembolism in the past. She denies any history of it. Patient is and she reports that she feels slightly anxious. Patient's tachycardia still persistent. She does appear to be in no acute distress. She reports that she has normal vital tachycardia. She reports that she has been compliant with her medications recently. Laboratory evaluation obtained. CBC unremarkable. Cardiac panel negative. D-dimer is 0.57. Metabolic panel is negative. Magnesium is 1.5. Patient given by mouth magnesium. Troponin elevated 0.057. Previous labs were reviewed with indication that her troponin is around her baseline. Patient reevaluated bedside and found to be in stable medical condition. She is well-appearing acute distress. States that her chest pain is gone. Patient will be admitted for concerns of acute coronary syndrome. She has multiple risk factors. Cardiology was consulted. Patient started on heparin and given Nitropaste. EKG interpretation: Ventricular rate 1:15, sinus tachycardia, NV interval 120, care is 84, QTC 495. No NV prolongation, no QTC prolongation, no ST or T-wave changes noted. EKG compared to 12/02/2018 showing no changes. Overall, this EKG is unremarkable - Related Data Home Medications Medication Instructions Recorded Confirmed Carvedilol 25 mg PO BID 07/11/18 12/02/18 Ferrous Sulfate [Iron] 325 mg PO DAILY 07/11/18 12/02/18 Montelukast [Singulair] 10 mg PO HS 07/11/18 12/02/18 metFORMIN HCL [Glucophage] 1,000 mg PO BID 08/02/18 12/02/18 Betamethasone Dipropionate 1 applic TOPICAL DAILY 12/02/18 12/02/18 [Diprolene AF 0.05% Cream] Lisinopril [Zestril] 20 mg PO DAILY 12/02/18 12/02/18 Semaglutide [Ozempic] 0.25 mg SQ MO 12/02/18 12/02/18 Previous Rx's Medication Instructions Recorded Aspirin 81 mg PO DAILY chew 08/05/18 Atorvastatin [Lipitor] 80 mg PO HS #30 tab 12/06/18 Clopidogrel [Plavix] 75 mg PO DAILY #30 tab 12/06/18 Insulin Glargine,Hum.rec.anlog 40 unit SQ HS #1 syr 12/06/18 [Basaglar Kwikpen U-100] Insulin Lispro [Admelog] 15 unit SQ AC-TID #1 vial 12/06/18 Losartan [Cozaar] 100 mg PO DAILY #30 tab 12/06/18 Nitroglycerin Sl Tabs [Nitrostat] 0.4 mg SUBLINGUAL Q5M PRN #25 tab 12/06/18 Spironolactone [Aldactone] 25 mg PO DAILY #30 tab 12/06/18 Allergies Allergy/AdvReac Type Severity Reaction Status Date / Time cephalexin [From Keflex] Allergy Rash/Hives Verified 04/27/19 21:52 codeine Allergy Rash/Hives Verified 04/27/19 21:52 Iodine and Iodide Containing Allergy Rash/Hives Verified 04/27/19 21:52 Produc Penicillins Allergy Rash/Hives Verified 04/27/19 21:52 tramadol Allergy Rash/Hives Verified 04/27/19 21:52 Review of Systems ROS Statement: Those systems with pertinent positive or pertinent negative responses have been documented in the HPI. ROS Other: All systems not noted in ROS Statement are negative. Past Medical History Past Medical History: Asthma, Coronary Artery Disease (CAD), Diabetes Mellitus, GERD/Reflux, Hyperlipidemia, Hypertension Additional Past Medical History / Comment(s): peptic ulcer, gall stones, kidney stone, childhood lukemia History of Any Multi-Drug Resistant Organisms: None Reported Past Surgical History: Section, Heart Catheterization With Stent, Joint Replacement, Tonsillectomy, Tubal Ligation Additional Past Surgical History / Comment(s): 3 stents, Past Anesthesia/Blood Transfusion Reactions: No Reported Reaction Date of Last Stent Placement:: 08/02/18 Past Psychological History: Anxiety, Bipolar, Depression, Schizophrenia Smoking Status: Former smoker Past Alcohol Use History: None Reported Past Drug Use History: None Reported - Past Family History Father Family Medical History: Hyperlipidemia, Hypertension Additional Family Medical History / Comment(s): pins in knee, heart stents x 4 General Exam Limitations: no limitations Course Vital Signs 02/08/20 19:43 Temperature 98.8 F Pulse Rate 118 H Respiratory 26 H Rate Blood Pressure 212/117 O2 Sat by Pulse 98 Oximetry Medical Decision Making - Lab Data Result diagrams: 04/27/19 20:58 04/27/19 20:58 Lab Results 04/27/19 04/27/19 04/27/19 Range/Units 20:58 20:58 20:58 WBC 6.9 (3.8-10.6) k/uL RBC 4.76 (3.80-5.40) m/uL Hgb 12.9 (11.4-16.0) gm/dL Hct 40.1 (34.0-46.0) % MCV 84.2 (80.0-100.0) fL MCH 27.1 (25.0-35.0) pg MCHC 32.1 (31.0-37.0) g/dL RDW 13.8 (11.5-15.5) % Plt Count 196 (150-450) k/uL Neutrophils % 80 % Lymphocytes % 11 % Monocytes % 6 % Eosinophils % 1 % Basophils % 0 % Neutrophils # 5.5 (1.3-7.7) k/uL Lymphocytes # 0.7 L (1.0-4.8) k/uL Monocytes # 0.4 (0-1.0) k/uL Eosinophils # 0.1 (0-0.7) k/uL Basophils # 0.0 (0-0.2) k/uL PT 10.4 (9.0-12.0) sec INR 1.0 (<1.2) APTT 22.5 (22.0-30.0) sec D-Dimer 0.57 (<0.60) mg/L FEU Sodium 136 L (137-145) mmol/L Potassium 3.6 (3.5-5.1) mmol/L Chloride 101 (98-107) mmol/L Carbon Dioxide 27 (22-30) mmol/L Anion Gap 8 mmol/L BUN 13 (7-17) mg/dL Creatinine 0.72 (0.52-1.04) mg/dL Est GFR (CKD-EPI)AfAm >90 (>60 ml/min/1.73 sqM) Est GFR (CKD-EPI)NonAf >90 (>60 ml/min/1.73 sqM) Glucose 220 H (74-99) mg/dL Calcium 9.2 (8.4-10.2) mg/dL Magnesium 1.5 L (1.6-2.3) mg/dL Total Bilirubin 0.8 (0.2-1.3) mg/dL AST 24 (14-36) U/L ALT 28 (4-34) U/L Alkaline Phosphatase 61 (38-126) U/L Troponin I (0.000-0.034) ng/mL Total Protein 6.9 (6.3-8.2) g/dL Albumin 4.2 (3.5-5.0) g/dL 04/27/19 Range/Units 20:58 WBC (3.8-10.6) k/uL RBC (3.80-5.40) m/uL Hgb (11.4-16.0) gm/dL Hct (34.0-46.0) % MCV (80.0-100.0) fL MCH (25.0-35.0) pg MCHC (31.0-37.0) g/dL RDW (11.5-15.5) % Plt Count (150-450) k/uL Neutrophils % % Lymphocytes % % Monocytes % % Eosinophils % % Basophils % % Neutrophils # (1.3-7.7) k/uL Lymphocytes # (1.0-4.8) k/uL Monocytes # (0-1.0) k/uL Eosinophils # (0-0.7) k/uL Basophils # (0-0.2) k/uL PT (9.0-12.0) sec INR (<1.2) APTT (22.0-30.0) sec D-Dimer (<0.60) mg/L FEU Sodium (137-145) mmol/L Potassium (3.5-5.1) mmol/L Chloride (98-107) mmol/L Carbon Dioxide (22-30) mmol/L Anion Gap mmol/L BUN (7-17) mg/dL Creatinine (0.52-1.04) mg/dL Est GFR (CKD-EPI)AfAm (>60 ml/min/1.73 sqM) Est GFR (CKD-EPI)NonAf (>60 ml/min/1.73 sqM) Glucose (74-99) mg/dL Calcium (8.4-10.2) mg/dL Magnesium (1.6-2.3) mg/dL Total Bilirubin (0.2-1.3) mg/dL AST (14-36) U/L ALT (4-34) U/L Alkaline Phosphatase (38-126) U/L Troponin I 0.057 H* (0.000-0.034) ng/mL Total Protein (6.3-8.2) g/dL Albumin (3.5-5.0) g/dL Critical Care Time Critical Care Time: Yes (31) Disposition Clinical Impression: Chest pain Disposition: ADMITTED IP TO THIS [facility] Condition: Fair Referrals: Odell Sena MD [Primary Care Provider] - 1-2 days Decision Time: 22:20
[2019-04-27 21:16] LABS: Basophils % (A) 0 %; Eosinophils # (A) 0.1 k/uL (0-0.7); Eosinophils % (A) 1 %; HCT 40.1 % (34.0-46.0); HGB 12.9 gm/dL (11.4-16.0); Lymphocytes # (A) 0.7 k/uL (1.0-4.8); Lymphocytes % (A) 11 %; MCH 27.1 pg (25.0-35.0); MCHC 32.1 g/dL (31.0-37.0); MCV 84.2 fL (80.0-100.0); Mean Platelet Volume 7.9; Monocytes # (A) 0.4 k/uL (0-1.0); Monocytes % (A) 6 %; Neutrophils # (A) 5.5 k/uL (1.3-7.7); Neutrophils % (A) 80 %; Platelet Count 196 k/uL (150-450); RBC 4.76 m/uL (3.80-5.40); RDW 13.8 % (11.5-15.5); WBC 6.9 k/uL (3.8-10.6)
--- NOTE | 2019-04-27 21:26 | XR ---
EXAMINATION TYPE: XR chest 2V DATE OF EXAM: 04/27/2019 COMPARISON: 12/02/2018 HISTORY: Chest pain TECHNIQUE: 2 views FINDINGS: Heart is slightly enlarged. There is no heart failure. There are no hilar masses. Lungs are clear of infiltrate. IMPRESSION: Cardiomegaly unchanged. There is improved inspiration compared to old exam.
[2019-04-27 21:33] LABS: ALT 28 U/L (4-34); AST 24 U/L (14-36); African American GFR (CKD) >90 (>60 ml/min/1.73 sqM); Albumin 4.2 g/dL (3.5-5.0); Alkaline Phosphatase 61 U/L (38-126); Anion Gap 8 mmol/L; Blood Urea Nitrogen 13 mg/dL (7-17); Calcium 9.2 mg/dL (8.4-10.2); Carbon Dioxide 27 mmol/L (22-30); Chloride 101 mmol/L (98-107); Glucose 220 mg/dL (74-99); Magnesium 1.5 mg/dL (1.6-2.3); Non-African American GFR(CKD) >90 (>60 ml/min/1.73 sqM); Potassium 3.6 mmol/L (3.5-5.1); Sodium 136 mmol/L (137-145); Total Bilirubin 0.8 mg/dL (0.2-1.3); Total Protein 6.9 g/dL (6.3-8.2)
[2019-04-27 21:34] LABS: D-Dimer 0.57 mg/L FEU (<0.60); Partial Thromboplastin Time 22.5 sec (22.0-30.0); Prothrombin Time 10.4 sec (9.0-12.0)
[2019-04-27] MEDS ORDERED: hydrALAZINE HCL 20 MG/ML 1 ML VIAL IVP STA (22:09)
[2019-04-27] MEDS ORDERED: HEPARIN SODIUM,PORCINE 5,000 UNIT/ML 1 ML VIAL IV PRN (22:12)
[2019-04-27] MEDS ORDERED: HEPARIN SODIUM,PORCINE 5,000 UNIT/ML 1 ML VIAL IV ONE (22:12)
[2019-04-27] MEDS ORDERED: NITROGLYCERIN SL TABS 0.4 MG TAB SUBLINGUAL PRN (22:16)
[2019-04-27] MEDS ORDERED: MAGNESIUM OXIDE 400 MG TAB PO STA (22:19)
[2019-04-27] MEDS ORDERED: NITROGLYCERIN OINT 1 INCH/GM PACKET TOPICAL STA (22:20)
[2019-04-27] MEDS: HEPARIN SOD,PORK IN 0.45% NACL 25,000 UNIT in 0.45% NACL 1 250ML.BAG IV SCH (22:45)
[2019-04-27] MEDS ORDERED: LIDOCAINE 5% PATCH TOPICAL ONE (23:30)
[2019-04-28] MEDS ORDERED: SODIUM CHLORIDE 0.9% 1,000 ML IV STA (01:02)
[2019-04-28] MEDS ORDERED: ACETAMINOPHEN TAB 500 MG TAB PO STA (01:04)
[2019-04-28] MEDS ORDERED: LABETALOL 5 MG/ML VIAL MDV IVP STA (01:12)
[2019-04-28 03:58] LABS: Cholesterol 122 mg/dL (<200); HDL Cholesterol 39 mg/dL (40-60); LDL Cholesterol,Calculated 65 mg/dL (0-99); Triglycerides 88 mg/dL (<150)
[2019-04-28] MEDS ORDERED: ASPIRIN 325 MG TAB PO SCH (09:00)
[2019-04-28 09:57] LABS: Glucose,Whole Blood 189 mg/dL (75-99)
[2019-04-28] MEDS ORDERED: CARVEDILOL 12.5 MG TAB PO SCH (10:30)
[2019-04-28] MEDS ORDERED: hydrALAZINE HCL 50 MG TAB PO SCH ×2 (10:30→22:00)
[2019-04-28] MEDS ORDERED: LISINOPRIL 20 MG TAB PO SCH (10:30)
[2019-04-28] MEDS ORDERED: Magnesium Replacement Protocol 1 EACH MISC MISCELLANE PRN (10:33)
[2019-04-28] MEDS: IPRATROPIUM-ALBUTEROL 3 ML NEB INHALATION PRN ×2 (10:54→19:55)
[2019-04-28] MEDS: CLOPIDOGREL 75 MG TAB PO SCH (11:23)
[2019-04-28] MEDS: SPIRONOLACTONE 25 MG TAB PO SCH (11:23)
[2019-04-28] MEDS: EZETIMIBE 10 MG TAB PO SCH (11:23)
[2019-04-28] MEDS: FERROUS SULFATE 325 MG TAB PO SCH (11:23)
[2019-04-28] MEDS: MAGNESIUM SULFATE-D5W PMX 1 GM in DEXTROSE/WATER 1 100ML.BAG IVPB SCH ×2 (11:24→13:30)
[2019-04-28] MEDS ORDERED: NITROGLYCERIN SL TABS 0.4 MG TAB SUBLINGUAL PRN (12:10)
[2019-04-28 12:15] LABS: Glucose,Whole Blood 261 mg/dL (75-99)
[2019-04-28] MEDS: HYDROcodone/APAP 5-325MG 1 EACH TAB PO PRN ×2 (12:21→22:02)
[2019-04-28] MEDS ORDERED: LISINOPRIL 20 MG TAB PO ONE (12:30)
[2019-04-28] MEDS ORDERED: hydrALAZINE HCL 50 MG TAB PO ONE (12:30)
--- NOTE | 2019-04-28 13:27 | HP ---
HISTORY AND PHYSICAL CHIEF COMPLAINT: Shortness of breath and chest pain. HISTORY OF PRESENT ILLNESS: This is another of many admissions for this unfortunate 38-year-old white female with extensive history of coronary artery disease. She also has diabetes. She had 2 coronary artery stents placed before and then last fall, came in again with another [place] and had a 3rd stent placed. Prior to coming to the hospital, she developed left anterior chest pain and difficulty breathing. She recognized this as angina, came to emergency room. She had no diaphoresis or vomiting. In the ER, troponin was elevated. Her blood pressures are extremely high and it is always the same when she comes in the office, but she states at home that it is normal. REVIEW OF SYSTEMS: She denies any headache, syncope, neurologic problems, change in vision or hearing, cough, hemoptysis, pleurisy, sputum production, orthopnea, PND, abdominal pain, nausea, vomiting, hematemesis, melena, hematochezia, cirrhosis, jaundice, hepatitis, renal failure, hematuria, dysuria, frequency, arthritis, or polydipsia, polyuria or polyphagia. Past medical history, family history, personal and social histories reveal that she is on carvedilol 25 mg b.i.d., ferrous sulfate 325 once a day, montelukast 10 mg a day, metformin 1000 mg twice a day, lisinopril 20 mg a day, Ozempic 0.25 once a week, and aspirin 81 mg once a day, atorvastatin 80 mg q.h.s., clopidogrel 75 once a day, Basaglar 40 units once a day, Cozaar 100 mg once a day, Nitrostat p.r.n. and spironolactone 25 mg once a day. She is ALLERGIC TO CEPHALOSPORINS, CODEINE, IODINE, PENICILLIN, AND TRAMADOL. Laboratory studies reveal normal CBC and D-dimer is also normal range. Renal function is normal with a GFR greater than 90. She does not smoke or drink. PHYSICAL EXAMINATION: Blood pressure is 212/117 with a pulse of 118, respirations 26, and she was afebrile. EKG demonstrated sinus tachycardia with occasional PVCs and there was ST-segment elevation and T-wave inversion in V1 and 2. Head ears, eyes, nose, mouth, and throat were normal and neck veins are not distended. Carotids are normal. She did have a thick and shortened neck. Chest demonstrated scattered rales and rhonchi. Cardiac exam demonstrated sinus tachycardia with no definite murmur or extra sounds. The abdomen was slightly protuberant, soft, nontender. Extremities are normal. Neurological: She is intact. IMPRESSION: She is admitted to the hospital with a diagnoses of: 1. Chest pain. 2. Angina pectoris. 3. Coronary artery disease. 4. Probable left anterior anteroseptal ST elevation myocardial infarction. 5. Uncontrolled hypertension. 6. Insulin-dependent diabetes mellitus. PLAN: 1. Bed rest. 2. IV fluids. 3. Serial EKGs and enzymes. 4. Anticoagulation. 5. Control hypertension. 6. Cardiology consult. MMODL / IJN: [id number] /
[2019-04-28] MEDS: INSULIN ASPART (NovoLOG) 100 UNIT/ML VIAL SQ SCH ×3 (13:30→21:52)
[2019-04-28] MEDS: OSELTAMIVIR 75 MG CAP PO SCH ×2 (13:30→21:52)
--- NOTE | 2019-04-28 13:30 | PN ---
PROGRESS NOTE CHIEF COMPLAINT: STEMI. HISTORY OF PRESENT ILLNESS: This lady is having much less chest discomfort, but there is still some present. Troponin has been up. She has no arrhythmias. PHYSICAL EXAMINATION: Her blood pressure remains exceedingly high. Chest is clear. The cardiac exam is unremarkable. Abdomen is soft, nontender. Extremities are normal. IMPRESSION: 1. Anteroseptal ST elevation myocardial infarction. 2. History of premature coronary artery disease with previous myocardial infarction and stenting. 3. Malignant hypertension. 4. Diabetes, insulin dependent. PLAN: Increase antihypertensives and consult Cardiology. MMODL / IJN: [id number] /
[2019-04-28 16:56] LABS: Glucose,Whole Blood 199 mg/dL (75-99)
[2019-04-28] MEDS: LIDOCAINE 5% PATCH TOPICAL SCH (17:15)
[2019-04-28] MEDS: HEPARIN SOD,PORK IN 0.45% NACL 25,000 UNIT in 0.45% NACL 1 250ML.BAG IV SCH (17:18)
[2019-04-28 20:35] LABS: Glucose,Whole Blood 190 mg/dL (75-99)
[2019-04-28] MEDS: hydrALAZINE HCL 50 MG TAB PO SCH (21:52)
[2019-04-28] MEDS: PANTOPRAZOLE 40 MG TABLET PO SCH (21:52)
[2019-04-28] MEDS: MONTELUKAST 10 MG TAB PO SCH (21:52)
[2019-04-28] MEDS: ATORVASTATIN 80 MG TAB PO SCH (21:52)
[2019-04-28] MEDS: INSULIN DETEMIR (LEVEMIR) 100 UNIT/ML SYR SQ SCH (21:53)
[2019-04-29] MEDS: CARVEDILOL 12.5 MG TAB PO SCH ×3 (04:29→22:08)
[2019-04-29 06:00] LABS: Glucose,Whole Blood 195 mg/dL (75-99)
--- NOTE | 2019-04-29 06:27 | CONS ---
IAN Dove is a 38-year-old lady who presented to hospital complaining of chest pain. She describes it as a precordial chest pressure, mild to moderate intensity at rest associated with some left arm pain. While in the ER she tested positive for flu and is being admitted to hospital. EKG shows sinus rhythm, PVCs, poor R-wave progression and nonspecific ST-T wave changes. Her troponin had come back elevated at 0.05, 0.06 and 0.049. The patient has known CAD and has had prior angioplasty including LAD and OM branch and most recently had angioplasty of the OM2 in November of 2018. The patient's clinical presentation is consistent with acute coronary syndrome and I advised her to undergo cardiac catheterization tomorrow. In the meantime, I will treat her with intravenous heparin. PAST MEDICAL HISTORY: Significant for multivessel coronary artery disease, hypertension, diabetes, dyslipidemia. MEDICATIONS: Include Lasix 20 daily, Ventolin, Protonix, Singulair, Lipitor Aldactone, Plavix, carvedilol, aspirin, Zestril, Zetia, hydralazine, and iron. ALLERGIES: CODEINE, IODINE, PENICILLIN, TRAMADOL, KEFLEX. FAMILY HISTORY: Negative for premature coronary artery disease. SOCIAL HISTORY: Negative for current smoking, EtOH abuse, or drug abuse. REVIEW OF SYSTEMS: HEENT is unremarkable. CARDIAC: As described above. RESPIRATORY: Negative. GI: Negative. GENITOURINARY: Negative. ALLERGY: Negative. IMMUNOLOGY: Negative. SKIN: Negative. ENDOCRINE: Negative. RHEUMATOLOGICAL: Negative. HEMATOLOGICAL: Negative. ONCOLOGICAL: Negative. Rest of the system review is not relevant. PHYSICAL EXAMINATION: On exam, patient is afebrile. Heart rate is 90 beats per minute, blood pressure is 137/87, respiratory rate 18, O2 sat is 94% on room air. There is no jugular venous distention. Carotid upstroke is normal. There is no bruit. Chest exam reveals good air entry bilaterally. Heart exam reveals first and second heart sounds. No gallop. No murmur. No rub. Abdomen is soft, nontender. Exam of extremities did not reveal any edema. Peripheral pulses are felt. ASSESSMENT: Acute non ST-segment elevation myocardial infarction. PLAN: Patient will be treated with intravenous heparin, aspirin, nitrates beta-blockers. She will undergo cardiac catheterization tomorrow by Dr. Everett who is her primary cloth shrinker. MMODL / SHERIFN: [id number] /
[2019-04-29] MEDS: INSULIN ASPART (NovoLOG) 100 UNIT/ML VIAL SQ SCH ×4 (06:42→22:08)
[2019-04-29] MEDS: EZETIMIBE 10 MG TAB PO SCH (08:32)
[2019-04-29] MEDS: OSELTAMIVIR 75 MG CAP PO SCH ×2 (08:32→22:07)
[2019-04-29] MEDS: LIDOCAINE 5% PATCH TOPICAL SCH ×2 (08:32→12:58)
[2019-04-29] MEDS: LISINOPRIL 20 MG TAB PO SCH (08:33)
[2019-04-29] MEDS: hydrALAZINE HCL 50 MG TAB PO SCH ×3 (08:33→22:07)
[2019-04-29] MEDS: FERROUS SULFATE 325 MG TAB PO SCH (08:34)
[2019-04-29] MEDS: HYDROcodone/APAP 5-325MG 1 EACH TAB PO PRN ×2 (08:34→22:06)
[2019-04-29] MEDS: CLOPIDOGREL 75 MG TAB PO SCH (08:34)
[2019-04-29] MEDS: ASPIRIN 81 MG PO SCH (08:34)
[2019-04-29] MEDS: SPIRONOLACTONE 25 MG TAB PO SCH (08:34)
[2019-04-29] MEDS: HEPARIN SOD,PORK IN 0.45% NACL 25,000 UNIT in 0.45% NACL 1 250ML.BAG IV SCH (08:42)
[2019-04-29] MEDS: IPRATROPIUM-ALBUTEROL 3 ML NEB INHALATION PRN ×2 (08:58→23:44)
[2019-04-29] MEDS ORDERED: OZEMPIC 0.25 MG SQ SCH (09:00)
[2019-04-29] MEDS ORDERED: LISINOPRIL 20 MG TAB PO SCH (09:00)
[2019-04-29 11:54] LABS: Glucose,Whole Blood 151 mg/dL (75-99)
[2019-04-29 12:24] LABS: Hemoglobin A1C 7.7 % (4.0-6.0)
--- NOTE | 2019-04-29 15:52 | P.PN ---
Subjective Progress Note Date: 04/29/19 This is a 38-year-old female presenting to the hospital with symptoms of chest discomfort. She has a known history of coronary artery disease with prior angioplasty of the L right ear and OM, most recently angioplasty of the OM and November 2018, hyperlipidemia, hypertension, diabetes. While the patient was in the emergency room, she tested positive for influenza A. She was admitted to the hospital and seen in consultation by Dr. Mullen. Troponins 0.05, 0.06, 0.04. On presentation here the patient was also found to be significantly hypertensive and medication adjustments were made. Her blood pressure today 132/70 with a heart rate of 90, 95% on room air. She has been initiated on Tamiflu. Once the patient has received 5 doses of Tamiflu, is recommended that she have a repeat cardiac catheterization. We will plan on this tentatively for Monday. Objective - Vital Signs Vital signs: Vital Signs Temp 98.2 F 04/29/19 11:15 Pulse 90 04/29/19 11:15 Resp 16 04/29/19 11:15 BP 132/76 04/29/19 11:15 Pulse Ox 95 04/29/19 11:15 Intake & Output 04/28/19 04/29/19 04/29/19 18:59 06:59 18:59 Intake Total 1705.182 288.756 Output Total 400 Balance 1705.182 -400 288.756 Weight 98.6 kg Intake: IV 90 Heparin Sod,Pork in 0.45% 90 NaCl 25,000 unit In 0.45 % NaCl 1 250ml.bag @ 10. 31 UNITS/KG/HR 10.008 mls /hr IV .Q24H [facility] Rx#: [id number] Intake, IV Titration 615.182 198.756 Amount Heparin Sod,Pork in 0.45% 215.182 198.756 NaCl 25,000 unit In 0.45 % NaCl 1 250ml.bag @ 10. 31 UNITS/KG/HR 10.008 mls /hr IV .Q24H [facility] Rx#: [id number] Magnesium Sulfate-D5w Pmx 100 1 gm In Dextrose/Water 1 100ml.bag @ 100 mls/hr IVPB Q1H [facility] Rx#: [id number] Sodium Chloride 0.9% 1, 300 000 ml @ 999 mls/hr IV . Q1H1M [facility] Rx#:[id number] Oral 1090 Output: Urine 400 Other: Voiding Method Toilet Toilet Toilet # Voids 1 1 - Exam PHYSICAL EXAMINATION: GENERAL: 38-year-old female in no acute distress at the time of my examination HEENT: Head is atraumatic, normocephalic. Pupils equal, round. Sclera anicteric. Conjunctiva are clear. Mucous membranes of the mouth are moist. Neck is supple. There is no elevated jugular venous pressure. No carotid bruit is heard. HEART EXAMINATION: Heart S1, S2 normal. No murmur or gallop heard. CHEST EXAMINATION: Lungs are clear to auscultation and precussion. No chest wall tenderness is noted on palpation or with deep breathing. ABDOMEN: Soft, nontender. Bowel sounds are heard. No organomegaly noted. EXTREMITIES: 2+ peripheral pulses with no evidence of peripheral edema and no calf tenderness noted. NEUROLOGIC patient is awake, alert and oriented 3. . - Labs CBC & Chem 7: 04/27/19 20:58 04/27/19 20:58 Labs: Abnormal Lab Results - Last 24 Hours (Table) 04/28/19 04/28/19 04/28/19 Range/Units 06:25 16:54 20:33 APTT (22.0-30.0) sec POC Glucose (mg/dL) 199 H 190 H (75-99) mg/dL Hemoglobin A1c 7.7 H (4.0-6.0) % 04/29/19 04/29/19 04/29/19 Range/Units 05:56 05:59 11:52 APTT 72.1 H (22.0-30.0) sec POC Glucose (mg/dL) 195 H 151 H (75-99) mg/dL Hemoglobin A1c (4.0-6.0) % Assessment and Plan Plan: Assessment and plan #1 non-ST elevation AL #2 known history of coronary artery disease with prior stent placements #3 diabetes #4 hypertension #5 hyperlipidemia #6 influenza A Plan Patient is currently on Tamiflu which we will continue, once she has received 5 doses of the Tamiflu, she will be able to undergo cardiac catheterization we will tentatively plan on this for Monday. We will continue aspirin, Lipitor, Coreg, Plavix, study a, IV heparin, lisinopril and Aldactone. DNP note has been reviewed, I agree with a documented findings and plan of care. Patient was seen and examined.
[2019-04-29 17:03] LABS: Glucose,Whole Blood 195 mg/dL (75-99)
[2019-04-29 20:26] LABS: Glucose,Whole Blood 238 mg/dL (75-99)
[2019-04-29] MEDS: ATORVASTATIN 80 MG TAB PO SCH (22:06)
[2019-04-29] MEDS: MONTELUKAST 10 MG TAB PO SCH (22:07)
[2019-04-29] MEDS: PANTOPRAZOLE 40 MG TABLET PO SCH (22:07)
[2019-04-29] MEDS: INSULIN DETEMIR (LEVEMIR) 100 UNIT/ML SYR SQ SCH (22:08)
--- NOTE | 2019-04-29 22:58 | PN ---
PROGRESS NOTE CHIEF COMPLAINT: Chest pain and STEMI. HISTORY OF PRESENT ILLNESS: This lady is still having some chest pain, but it is improving. Blood pressure is back down to normal. She is going for a cardiac cath today. PHYSICAL EXAMINATION: She is awake and alert. Color is good. Chest is clear. There are no rales or rhonchi. Cardiac exam is normal. The abdomen is soft and protuberant. It is nontender and there are no masses. Extremities are normal. IMPRESSION: 1. Anteroseptal ST-elevation myocardial infarction. 2. Coronary artery disease. 3. Hypertension. PLAN: Cardiac cath today. MMODL / IJN: [id number] /
[2019-04-30 06:33] LABS: Glucose,Whole Blood 193 mg/dL (75-99)
[2019-04-30] MEDS: INSULIN ASPART (NovoLOG) 100 UNIT/ML VIAL SQ SCH ×4 (06:43→22:00)
[2019-04-30] MEDS: CARVEDILOL 12.5 MG TAB PO SCH ×2 (08:41→21:59)
[2019-04-30] MEDS: hydrALAZINE HCL 50 MG TAB PO SCH ×3 (08:41→21:59)
[2019-04-30] MEDS: ASPIRIN 81 MG PO SCH (08:41)
[2019-04-30] MEDS: CLOPIDOGREL 75 MG TAB PO SCH (08:41)
[2019-04-30] MEDS: SPIRONOLACTONE 25 MG TAB PO SCH (08:41)
[2019-04-30] MEDS: HEPARIN SOD,PORK IN 0.45% NACL 25,000 UNIT in 0.45% NACL 1 250ML.BAG IV SCH (08:42)
[2019-04-30] MEDS: OSELTAMIVIR 75 MG CAP PO SCH ×2 (08:42→21:59)
[2019-04-30] MEDS: LISINOPRIL 20 MG TAB PO SCH (08:42)
[2019-04-30] MEDS: FERROUS SULFATE 325 MG TAB PO SCH (08:42)
[2019-04-30] MEDS: EZETIMIBE 10 MG TAB PO SCH (08:42)
[2019-04-30] MEDS: LIDOCAINE 5% PATCH TOPICAL SCH (08:44)
[2019-04-30] MEDS: HYDROcodone/APAP 5-325MG 1 EACH TAB PO PRN ×2 (08:53→22:00)
[2019-04-30] MEDS ORDERED: SODIUM CHLORIDE 0.9% 1,000 ML in EMPTY BAG 1 BAG IV ONE (11:11)
[2019-04-30] MEDS ORDERED: ASPIRIN 325 MG TAB PO STA (11:11)
[2019-04-30] MEDS ORDERED: ALPRAZolam 0.5 MG TAB PO PRN (11:11)
[2019-04-30] MEDS ORDERED: ATORVASTATIN 80 MG TAB PO STA (11:11)
[2019-04-30] MEDS ORDERED: NITROGLYCERIN SL TABS 0.4 MG TAB SUBLINGUAL PRN (11:11)
[2019-04-30] MEDS ORDERED: ALPRAZolam 0.25 MG TAB PO PRN (11:11)
[2019-04-30 12:14] LABS: Glucose,Whole Blood 214 mg/dL (75-99)
--- NOTE | 2019-04-30 13:49 | P.PN ---
Subjective Progress Note Date: 04/30/19 This is a 38-year-old female presenting to the hospital with symptoms of chest discomfort. She has a known history of coronary artery disease with prior angioplasty of the L right ear and OM, most recently angioplasty of the OM and November 2018, hyperlipidemia, hypertension, diabetes. While the patient was in the emergency room, she tested positive for influenza A. She was admitted to the hospital and seen in consultation by Dr. Mullen. Troponins 0.05, 0.06, 0.04. On presentation here the patient was also found to be significantly hypertensive and medication adjustments were made. Her blood pressure today 132/70 with a heart rate of 90, 95% on room air. She has been initiated on Tamiflu. Once the patient has received 5 doses of Tamiflu, is recommended that she have a repeat cardiac catheterization. We will plan on this tentatively for Monday. 04/30/2019 Patient was seen and examined this morning, denied any chest discomfort, breathing is stable. Blood pressure 126/58 with a heart rate in the 90s, 97% on room air. Objective - Vital Signs Vital signs: Vital Signs Temp 98.5 F 04/30/19 08:00 Pulse 97 04/30/19 08:00 Resp 16 04/30/19 12:00 BP 126/58 04/30/19 08:00 Pulse Ox 97 04/30/19 08:00 Intake & Output 04/29/19 04/30/19 04/30/19 18:59 06:59 18:59 Intake Total 288.756 250 360 Output Total 580 Balance 288.756 -330 360 Weight 98.1 kg Intake: IV 90 Heparin Sod,Pork in 0.45% 90 NaCl 25,000 unit In 0.45 % NaCl 1 250ml.bag @ 10. 31 UNITS/KG/HR 10.008 mls /hr IV .Q24H [facility] Rx#: [id number] Intake, IV Titration 198.756 250 Amount Heparin Sod,Pork in 0.45% 198.756 250 NaCl 25,000 unit In 0.45 % NaCl 1 250ml.bag @ 10. 31 UNITS/KG/HR 10.008 mls /hr IV .Q24H [facility] Rx#: [id number] Oral 360 Output: Urine 580 Other: Voiding Method Toilet Toilet # Voids 1 2 0 - Exam PHYSICAL EXAMINATION: GENERAL: 38-year-old female in no acute distress at the time of my examination HEENT: Head is atraumatic, normocephalic. Pupils equal, round. Sclera anicteric. Conjunctiva are clear. Mucous membranes of the mouth are moist. Neck is supple. There is no elevated jugular venous pressure. No carotid bruit is heard. HEART EXAMINATION: Heart S1, S2 normal. No murmur or gallop heard. CHEST EXAMINATION: Lungs are clear to auscultation and precussion. No chest wall tenderness is noted on palpation or with deep breathing. ABDOMEN: Soft, nontender. Bowel sounds are heard. No organomegaly noted. EXTREMITIES: 2+ peripheral pulses with no evidence of peripheral edema and no calf tenderness noted. NEUROLOGIC patient is awake, alert and oriented 3. . - Labs CBC & Chem 7: 04/27/19 20:58 04/27/19 20:58 Labs: Abnormal Lab Results - Last 24 Hours (Table) 04/29/19 04/29/19 04/29/19 Range/Units 15:31 17:02 20:25 APTT 55.5 H (22.0-30.0) sec POC Glucose (mg/dL) 195 H 238 H (75-99) mg/dL 04/30/19 04/30/19 04/30/19 Range/Units 06:19 06:32 12:12 APTT 50.9 H (22.0-30.0) sec POC Glucose (mg/dL) 193 H 214 H (75-99) mg/dL Assessment and Plan Plan: Assessment and plan #1 non-ST elevation UT #2 known history of coronary artery disease with prior stent placements #3 diabetes #4 hypertension #5 hyperlipidemia #6 influenza A Plan Patient will be scheduled tomorrow to undergo cardiac catheterization, the risks and the benefits were explained to the patient in detail and she is willing to proceed. This will be performed tomorrow by Dr. Everett. DNP note has been reviewed, I agree with a documented findings and plan of care. Patient was seen and examined.
[2019-04-30 14:33] LABS: Glucose,Whole Blood 166 mg/dL (75-99)
[2019-04-30 16:52] LABS: Glucose,Whole Blood 175 mg/dL (75-99)
--- NOTE | 2019-04-30 19:44 | PN ---
PROGRESS NOTE CHIEF COMPLAINT: Acute MS. HISTORY OF PRESENT ILLNESS: This lady is stable and she is going for cardiac cath in the next day or two. She is still having some chest pain, but this may not be cardiac. PHYSICAL EXAMINATION: Her blood pressure is in the normal range. Chest is clear. Cardiac exam is normal. Abdomen is soft, nontender. IMPRESSION: 1. Acute myocardial infarction. 2. Premature coronary artery disease. 3. Hypertension. PLAN: Continue with anticoagulants and await her cardiac catheterization. MMODL / IJN: [id number] /
[2019-04-30] MEDS: IPRATROPIUM-ALBUTEROL 3 ML NEB INHALATION PRN (20:54)
[2019-04-30 21:02] LABS: Glucose,Whole Blood 153 mg/dL (75-99)
[2019-04-30] MEDS: PANTOPRAZOLE 40 MG TABLET PO SCH (21:59)
[2019-04-30] MEDS: MONTELUKAST 10 MG TAB PO SCH (21:59)
[2019-04-30] MEDS: INSULIN DETEMIR (LEVEMIR) 100 UNIT/ML SYR SQ SCH (22:00)
[2019-04-30] MEDS: ATORVASTATIN 80 MG TAB PO SCH (22:00)
[2019-05-01 06:13] LABS: Glucose,Whole Blood 148 mg/dL (75-99)
[2019-05-01] MEDS: CARVEDILOL 12.5 MG TAB PO SCH ×2 (06:25→20:18)
[2019-05-01] MEDS: CLOPIDOGREL 75 MG TAB PO SCH (06:25)
[2019-05-01] MEDS: EZETIMIBE 10 MG TAB PO SCH (06:25)
[2019-05-01] MEDS: SPIRONOLACTONE 25 MG TAB PO SCH (06:25)
[2019-05-01] MEDS: LISINOPRIL 20 MG TAB PO SCH (06:25)
[2019-05-01] MEDS: OSELTAMIVIR 75 MG CAP PO SCH ×2 (06:25→20:18)
[2019-05-01] MEDS: FERROUS SULFATE 325 MG TAB PO SCH (06:25)
[2019-05-01] MEDS: hydrALAZINE HCL 50 MG TAB PO SCH ×3 (06:25→23:01)
[2019-05-01] MEDS: INSULIN ASPART (NovoLOG) 100 UNIT/ML VIAL SQ SCH ×4 (06:26→21:42)
[2019-05-01] MEDS: HEPARIN SOD,PORK IN 0.45% NACL 25,000 UNIT in 0.45% NACL 1 250ML.BAG IV SCH (06:27)
[2019-05-01] MEDS: LIDOCAINE 5% PATCH TOPICAL SCH (06:27)
[2019-05-01] MEDS: ASPIRIN 81 MG PO SCH (06:36)
[2019-05-01 12:37] LABS: Glucose,Whole Blood 124 mg/dL (75-99)
[2019-05-01] MEDS: HYDROcodone/APAP 5-325MG 1 EACH TAB PO PRN ×2 (16:08→23:00)
[2019-05-01 17:39] LABS: Glucose,Whole Blood 197 mg/dL (75-99)
[2019-05-01] MEDS: MONTELUKAST 10 MG TAB PO SCH (20:18)
[2019-05-01] MEDS: PANTOPRAZOLE 40 MG TABLET PO SCH (20:18)
[2019-05-01] MEDS: ATORVASTATIN 80 MG TAB PO SCH (20:18)
--- NOTE | 2019-05-01 20:23 | PN ---
PROGRESS NOTE CHIEF COMPLAINT: Acute MO. HISTORY OF PRESENT ILLNESS: This lady has been stable and she is going for cardiac cath today. PHYSICAL EXAMINATION: Her chest is clear. Cardiac exam is normal. Abdomen is soft, nontender. IMPRESSION: 1. Acute myocardial infarction. 2. Coronary artery disease. 3. Hypertension. 4. Insulin-dependent diabetes. PLAN: Cardiac cath today. MMODL / IJN: [id number] /
[2019-05-01] MEDS ORDERED: ENOXAPARIN 100 MG/ML SYRINGE SQ SCH (21:00)
[2019-05-01 21:19] LABS: Glucose,Whole Blood 165 mg/dL (75-99)
[2019-05-01] MEDS: INSULIN DETEMIR (LEVEMIR) 100 UNIT/ML SYR SQ SCH (21:42)
[2019-05-02 05:43] LABS: Glucose,Whole Blood 191 mg/dL (75-99)
[2019-05-02] MEDS: CARVEDILOL 12.5 MG TAB PO SCH ×2 (06:26→21:18)
[2019-05-02] MEDS: SPIRONOLACTONE 25 MG TAB PO SCH (06:26)
[2019-05-02] MEDS: LISINOPRIL 20 MG TAB PO SCH (06:26)
[2019-05-02] MEDS: OSELTAMIVIR 75 MG CAP PO SCH ×2 (06:27→21:18)
[2019-05-02] MEDS: hydrALAZINE HCL 50 MG TAB PO SCH ×3 (06:27→21:18)
[2019-05-02] MEDS: ASPIRIN 81 MG PO SCH (06:27)
[2019-05-02] MEDS: FERROUS SULFATE 325 MG TAB PO SCH (06:27)
[2019-05-02] MEDS ORDERED: VERAPAMIL 2.5 MG/ML 2 ML AMP ONE (07:18)
[2019-05-02] MEDS ORDERED: LIDOCAINE 1% INJ 10MG/ML (20 ML MDV) ONE (07:18)
[2019-05-02] MEDS ORDERED: fentaNYL (PF) 50 MCG/ML 2 ML AMP ONE (07:19)
[2019-05-02] MEDS ORDERED: methylPREDNISolone SOD SUCCI 125 MG/2 ML VIAL ONE (07:19)
[2019-05-02] MEDS ORDERED: diphenhydrAMINE 50 MG/ML 1 ML VIAL ONE (07:19)
[2019-05-02] MEDS ORDERED: diphenhydrAMINE 50 MG/ML 1 ML VIAL IVP ONE (07:45)
[2019-05-02] MEDS ORDERED: fentaNYL (PF) 50 MCG/ML 2 ML AMP IV ONE (07:45)
[2019-05-02] MEDS ORDERED: methylPREDNISolone SOD SUCCI 125 MG/2 ML VIAL IV ONE (07:45)
[2019-05-02] MEDS ORDERED: LIDOCAINE 1% INJ 10MG/ML (20 ML MDV) SQ ONE ×2 (07:49→07:50)
[2019-05-02] MEDS ORDERED: MIDAZOLAM 2 MG/2 ML VIAL IV ONE (07:51)
[2019-05-02] MEDS ORDERED: VERAPAMIL SYRINGE (5 MG/10 ML) INTRAARTER ONE (07:51)
[2019-05-02] MEDS ORDERED: SODIUM CHLORIDE 0.9% 500 ML 500 ML IV ONE (07:53)
[2019-05-02] MEDS ORDERED: NITROGLYCERIN 1000MCG/10ML SYRINGE INTRACORON ONE (07:59)
[2019-05-02] MEDS ORDERED: BIVALIRUDIN BOLUS 250 MG/50 ML IV ONE (08:07)
[2019-05-02] MEDS ORDERED: BIVALIRUDIN 250 MG in SODIUM CHLORIDE 0.9% 34 ML IV ONE (08:08)
[2019-05-02] MEDS ORDERED: IOPAMIDOL-370 125ML BTL INJ ONE (08:16)
[2019-05-02] MEDS ORDERED: CLOPIDOGREL 75 MG TAB ONE (08:26)
[2019-05-02] MEDS ORDERED: IOPAMIDOL-370 50ML BTL INJ ONE (08:31)
[2019-05-02] MEDS ORDERED: CLOPIDOGREL 75 MG TAB PO ONE (08:31)
[2019-05-02] MEDS ORDERED: MAG HYDROX/AL HYDROX/SIMETH 30 ML CUP PO PRN (08:32)
[2019-05-02] MEDS ORDERED: ZOLPIDEM 5 MG TAB PO PRN (08:32)
[2019-05-02] MEDS ORDERED: ATROPINE SULFATE 0.1 MG/ML 10ML SYRINGE IV PRN (08:32)
[2019-05-02] MEDS ORDERED: RX INFO: IV CONTRAST WAS GIVEN 1 EACH MISC MISCELLANE PRN (08:32)
[2019-05-02] MEDS ORDERED: NITROGLYCERIN SL TABS 0.4 MG TAB SUBLINGUAL PRN (08:32)
[2019-05-02] MEDS: INSULIN ASPART (NovoLOG) 100 UNIT/ML VIAL SQ SCH ×4 (08:41→21:19)
[2019-05-02] MEDS ORDERED: SODIUM CHLORIDE 0.9% 1,000 ML IV SCH (08:45)
--- NOTE | 2019-05-02 09:09 | CC ---
CARDIAC CATHETERIZATION REPORT Mrs. Franklin is a 38-year-old female with known history of coronary artery disease who presented in August of 2018 with an acute myocardial infarction and underwent percutaneous revascularization. She presented with symptoms of chest discomfort and mild troponin elevation. In view of that and after evaluation by Dr. Mullen, recommendation was made regarding cardiac catheterization. The procedure as well as the risks and the complications were discussed with the patient who is in full understanding and agreement. PROCEDURE: Patient was brought to [facility] in a fasting semi-sedated state after receiving fentanyl and Benadryl and achieving moderate conscious sedated state. Using Xylocaine anesthesia in the Seldinger technique, a 6-[place]izen [place] sheath was introduced in the right radial artery. Selective right and left coronary angiography performed using 5-[place]izen [place] 3.5 bend right and left Romelia catheter multiple views of the coronary artery including hemiaxial views were obtained. Following that, angioplasty and stenting was performed. Following that 5-[place] tight pigtail catheter was introduced was the left ventricle and a 30-degree KAY view of the left ventricle was obtained. Following that, catheter and sheath were removed. Hemostasis was obtained with deployment of a TR band. There was no immediate complication. Patient was returned to room in stable condition. FINDINGS: LEFT MAIN: This is a large-sized vessel bifurcating into left circumflex and left anterior descending artery. Left main coronary artery has no evidence of high-grade stenosis. LEFT ANTERIOR DESCENDING ARTERY: This is a large-sized vessel reaching toward the apex with a wraparound apex segment giving rise to 2 diagonal branches. The first diagonal branch is small and has an 80% plaque at the takeoff. There is a 20% plaque at that same segment. The stented segment in the mid LAD is patent. Distal to the stented segment at the distal edge, there is an 80% stenosis. The rest of the vessel has no high-grade stenosis. LEFT CIRCUMFLEX: This is a large nondominant vessel giving rise to 3 obtuse marginal branches. The stented segment in the circumflex are patent. After the takeoff of the second obtuse marginal branch, there is an area of stenosis of 80%. The first obtuse marginal branch in the proximal segment at the ostium has a tubular 50% to 60% plaque. The rest of the vessel has no high-grade stenosis. RIGHT CORONARY ARTERY: This is a large dominant vessel bifurcating distally PDA and posterolateral segment and branches. The right coronary artery distal segment has a 20% to 30% plaque. The rest of the vessel has no high-grade stenosis. LEFT VENTRICULOGRAM: Left ventricular was performed in the 30-degree KAY view and revealed an anteroapical akinesis. Ejection fraction is estimated at 40%. There was arrhythmia induced mitral regurgitation. There was a question of apical thrombosis. HEMODYNAMICS: There was no gradient across the aortic valve. The left ventricular end-diastolic pressure was 26 to 28 mmHg. CONCLUSION: 1. Critical stenosis distal to the stented segment in the LAD. 2. Significant disease in the distal left circumflex. 3. Mild disease in the distal right coronary artery. 4. Moderately impaired left ventricular systolic function with segmental wall motion abnormality. RECOMMENDATION: In view of finding anatomy, I recommend proceeding with angioplasty and stenting of the LAD. The procedure as well as the risks and the complications were discussed with the patient who is in full understanding and agreement. MMODL / IJN: [id number] /
--- NOTE | 2019-05-02 09:17 | PTCA ---
PERCUTANEOUSTRANS CORORONARY ANGIOGRAPHY Mrs. Franklin is a 38-year-old female with known history of coronary artery disease who presented with a non ST-segment elevation myocardial infarction, underwent cardiac catheterization, was found to have significant obstructive disease involving the mid LAD coronary artery. Recommendation was made regarding angioplasty and stenting. The procedure as well as the risks and complication were discussed with the patient who is in full understanding and agreement. PROCEDURE: A 6-[place] EBU 3.75 guiding catheter introduced in the system. After cannulating the left main, a 0.014 balanced medium weight J-wire was advanced across the lesion, positioned distally then a 3.0 x 15 mm Xience Anu stent was deployed postdilated at 16 atmospheres. Following that, the balloon was removed and a 3.25 x 12 mm NC Trek balloon was advanced and one inflation at 14 atmospheres was performed. Following that, the balloon and the guidewire were withdrawn back in the guiding catheter. Images were obtained, repeated. Those images reveal stable successful stenting. At that point, the guiding catheter, the balloon and the guidewire were removed and left ventriculogram was performed. Following that, catheter and sheath were removed. Hemostasis was obtained with deployment of a TR band. There was no immediate complication. Patient was returned to her room in stable condition. Of note, the patient received Angiomax per protocol and was continued on clopidogrel. She had chest discomfort and EKG changes with the inflation that resolved at the end procedure. RESULTS: Successful stenting of the mid LAD with reduction of stenosis from 80% to 0%. RECOMMENDATION: Patient will be continued on aspirin, Plavix, beta blockers, Ryan inhibitor and statin. The importance of dual antiplatelet treatment were discussed with the patient and her family and are in full understanding and agreement. Duration of procedure is 40 minutes. MMODL / IJN: [id number] / MTDShivani
[2019-05-02] MEDS: EZETIMIBE 10 MG TAB PO SCH (09:19)
[2019-05-02] MEDS: CLOPIDOGREL 75 MG TAB PO SCH (09:24)
--- NOTE | 2019-05-02 09:24 | LTR ---
May 02, 2019 Re: Petty Franklin Dear Dr. Sena: I had the opportunity to perform coronary angiography, coronary angioplasty and stenting on Mrs. Franklin at [facility] on the 02 of May and a full copy of the procedure note will be forwarded to you. In brief, she was found to have significant stenosis distal to the prior stented segment in the LAD and underwent successful stenting of that vessel. I am hopeful that this procedure will stabilize her status. Thank you again for allowing me the opportunity to participate in her care. Please feel free to call for any questions. Sincerely yours, MD CASSI JonesL / SHERIFN: [id number] /
[2019-05-02 12:21] LABS: Glucose,Whole Blood 302 mg/dL (75-99)
[2019-05-02 14:04] VITALS: BMI 41.3
[2019-05-02] MEDS: LIDOCAINE 5% PATCH TOPICAL SCH (14:05)
--- NOTE | 2019-05-02 14:06 | PN ---
PROGRESS NOTE CHIEF COMPLAINT: Chest pain. HISTORY OF PRESENT ILLNESS: This lady just had her cardiac cath and she had a tight narrowing of the LAD which was stented open. Procedure was tolerated well. She has no issues at this time. PHYSICAL EXAMINATION: Chest is clear. Cardiac exam is normal. The abdomen is soft, nontender. IMPRESSION: Coronary artery disease with anterior infarction. PLAN: Continue to follow with Cardiology and, hopefully, she can go home in the next day or 2. MMODL / IJN: [id number] /
[2019-05-02] MEDS: HYDROcodone/APAP 5-325MG 1 EACH TAB PO PRN (16:02)
[2019-05-02 17:34] LABS: Glucose,Whole Blood 315 mg/dL (75-99)
[2019-05-02] MEDS: IPRATROPIUM-ALBUTEROL 3 ML NEB INHALATION PRN (19:41)
[2019-05-02 20:56] LABS: Glucose,Whole Blood 375 mg/dL (75-99)
[2019-05-02] MEDS: ATORVASTATIN 80 MG TAB PO SCH (21:18)
[2019-05-02] MEDS: PANTOPRAZOLE 40 MG TABLET PO SCH (21:18)
[2019-05-02] MEDS: MONTELUKAST 10 MG TAB PO SCH (21:18)
[2019-05-02] MEDS: INSULIN DETEMIR (LEVEMIR) 100 UNIT/ML SYR SQ SCH (21:18)
[2019-05-03 05:49] LABS: Glucose,Whole Blood 235 mg/dL (75-99)
[2019-05-03] MEDS: hydrALAZINE HCL 50 MG TAB PO SCH (06:15)
[2019-05-03] MEDS: INSULIN ASPART (NovoLOG) 100 UNIT/ML VIAL SQ SCH ×2 (06:16→12:55)
[2019-05-03 08:19] LABS: African American GFR (CKD) >90 (>60 ml/min/1.73 sqM); Anion Gap 9 mmol/L; Blood Urea Nitrogen 13 mg/dL (7-17); Calcium 9.5 mg/dL (8.4-10.2); Carbon Dioxide 20 mmol/L (22-30); Chloride 107 mmol/L (98-107); Glucose 230 mg/dL (74-99); Non-African American GFR(CKD) >90 (>60 ml/min/1.73 sqM); Sodium 136 mmol/L (137-145)
[2019-05-03 08:21] LABS: Potassium 5.5 mmol/L (3.5-5.1)
[2019-05-03] MEDS: LIDOCAINE 5% PATCH TOPICAL SCH (09:10)
[2019-05-03] MEDS: FERROUS SULFATE 325 MG TAB PO SCH (09:12)
[2019-05-03] MEDS: CLOPIDOGREL 75 MG TAB PO SCH (09:12)
[2019-05-03] MEDS: ASPIRIN 81 MG PO SCH (09:12)
[2019-05-03] MEDS: CARVEDILOL 12.5 MG TAB PO SCH (09:12)
[2019-05-03] MEDS: SPIRONOLACTONE 25 MG TAB PO SCH (09:12)
[2019-05-03] MEDS: EZETIMIBE 10 MG TAB PO SCH (09:12)
[2019-05-03] MEDS: LISINOPRIL 20 MG TAB PO SCH (09:12)
--- NOTE | 2019-05-03 11:38 | ECHOF ---
Referral Reason:cad MEASUREMENTS -------- HEIGHT: 157.5 cm WEIGHT: 102.1 kg BP: 131/88 RVIDd: 2.9 cm (< 3.3) IVSd: 1.5 cm (0.6 - 1.1) LVIDd: 4.8 cm (3.9 - 5.3) LVPWd: 1.6 cm (0.6 - 1.1) IVSs: 1.8 cm LVIDs: 3.5 cm LVPWs: 1.9 cm LA Diam: 4.4 cm (2.7 - 3.8) LAESV Index (A-L): 42.28 ml/m Ao Diam: 2.7 cm (2.0 - 3.7) AV Cusp: 1.9 cm (1.5 - 2.6) MV EXCURSION: 17.354 mm (> 18.000) MV EF SLOPE: 289 mm/s (70 - 150) EPSS: 1.0 cm MV E Terrell: 1.33 m/s MV DecT: 134 ms MV A Terrell: 0.46 m/s MV E/A Ratio: 2.87 RAP: 15.00 mmHg RVSP: 53.76 mmHg FINDINGS -------- Sinus rhythm. This was a technically adequate study. The left ventricular size is normal. There is moderate concentric left ventricular hypertrophy. O verall left ventricular systolic function is low-normal with, an EF between 50 - 55 %. The right ventricle is normal in size. LA is severely dilated >40 ml/m2 The right atrium is normal in size. Interatrial and interventricular septum intact. The aortic valve is trileaflet and appears structurally normal. The mitral valve leaflets are mildly thickened. Mild mitral regurgitation is present. Mild tricuspid regurgitation present. There is moderate pulmonary hypertension. The right ventric ular systolic pressure, as measured by Doppler, is 53.76mmHg. Trace/mild (physiologic) pulmonic regurgitation. The aortic root size is normal. The inferior vena cava is dilated with no significant inspiratory collapse which is consistent estima alyssa right atrial pressure of >15 mmHg. There is no pericardial effusion. CONCLUSIONS -------- 1. Sinus rhythm. 2. This was a technically adequate study. 3. The left ventricular size is normal. 4. There is moderate concentric left ventricular hypertrophy. 5. The right ventricle is normal in size. 6. LA is severely dilated >40 ml/m2 7. The right atrium is normal in size. 8. Interatrial and interventricular septum intact. 9. The aortic valve is trileaflet and appears structurally normal. 10. The mitral valve leaflets are mildly thickened. 11. Mild mitral regurgitation is present. 12. Mild tricuspid regurgitation present. 13. There is moderate pulmonary hypertension. 14. The right ventricular systolic pressure, as measured by Doppler, is 53.76mmHg. 15. Trace/mild (physiologic) pulmonic regurgitation. 16. The aortic root size is normal. 17. The inferior vena cava is dilated with no significant inspiratory collapse which is consistent es timated right atrial pressure of >15 mmHg. 18. There is no pericardial effusion. GLASS CUT OFF TENDER: Asuncion Aleman RDCS
[2019-05-03 11:43] VITALS: BP 176/103; PULSE 89; RESP 18; TEMP 97.5
[2019-05-03 12:42] LABS: Glucose,Whole Blood 251 mg/dL (75-99)
--- NOTE | 2019-05-03 12:56 | DS ---
DISCHARGE SUMMARY CHIEF COMPLAINT: Chest pain and myocardial infarction. HISTORY OF PRESENT ILLNESS AND PHYSICAL EXAM: Details of this lady's history and physical can be found in the initial workup. COURSE IN HOSPITAL: After admission, she was placed on bedrest, started on intravenous fluids and had serial EKGs and enzymes. Troponin was elevated. She was seen by Cardiology and eventually taken for cardiac cath where she was found to have an occlusion of the LAD. This was stented. She did well postoperatively and it is felt that she could go home. Cardiology plans further studies after she is discharged and it was mentioned that she might become a candidate for a heart transplant. She will be seen in several days in my office. FINAL DIAGNOSES: 1. Acute myocardial infarction. 2. Premature coronary artery disease. 3. Hypertension. 4. Insulin-dependent diabetes mellitus. OPERATIONS: Cardiac cath with stenting in the LAD. CONSULTATION: Cardiology. She is improved. MMODL / IJN: [id number] /
== END 2019-05-03 14:07 | disposition home or self-care (01) | DRG 247 ==
LOC: EC 19:42 → INTOOBSV 22:17 → 3SCARD 22:17 → OBSVTOIN 04-29 05:38
PROVIDERS: ADMIT Family Medicine; ATTEND Family Medicine
PROC: B2151ZZ Fluoroscopy of Left Heart using Low Osmolar Contrast (ICD-10-PCS; principal; 2019-05-02 07:30)
PROC: 4A023N7 Measurement of Cardiac Sampling and Pressure, Left Heart, Percutaneous Approach (ICD-10-PCS; principal; 2019-05-02 07:30)
PROC: B2111ZZ Fluoroscopy of Multiple Coronary Arteries using Low Osmolar Contrast (ICD-10-PCS; principal; 2019-05-02 07:30)
PROC: 027034Z Dilation of Coronary Artery, One Artery with Drug-eluting Intraluminal Device, Percutaneous Approach (ICD-10-PCS; principal; 2019-05-02 07:30)
DX: I21.4 Non-ST elevation (NSTEMI) myocardial infarction (principal); E11.9 Type 2 diabetes mellitus without complications; J10.1 Influenza due to other identified influenza virus with other respiratory manifestations; I10 Essential (primary) hypertension; K21.9 Gastro-esophageal reflux disease without esophagitis; J45.909 Unspecified asthma, uncomplicated; E78.5 Hyperlipidemia, unspecified; I49.3 Ventricular premature depolarization; I25.119 Atherosclerotic heart disease of native coronary artery with unspecified angina pectoris; I25.2 Old myocardial infarction; K80.20 Calculus of gallbladder without cholecystitis without obstruction; Z79.82 Long term (current) use of aspirin; Z79.02 Long term (current) use of antithrombotics/antiplatelets; Z79.4 Long term (current) use of insulin; Z79.899 Other long term (current) drug therapy; Z95.5 Presence of coronary angioplasty implant and graft; Z87.11 Personal history of peptic ulcer disease; Z87.442 Personal history of urinary calculi; Z87.891 Personal history of nicotine dependence; Z86.59 Personal history of other mental and behavioral disorders; Z98.891 History of uterine scar from previous surgery; Z98.51 Tubal ligation status; Z98.890 Other specified postprocedural states; Z88.5 Allergy status to narcotic agent; Z88.0 Allergy status to penicillin; Z88.1 Allergy status to other antibiotic agents; Z91.041 Radiographic dye allergy status; Z83.49 Family history of other endocrine, nutritional and metabolic diseases; Z82.49 Family history of ischemic heart disease and other diseases of the circulatory system
CPT/HCPCS: 36415; 71046; 80048; 80053; 80061; 83036; 83735; 83880; 84484; 85025; 85379; 85610; 85730; 87502; 93005; 93306; 93458; 94640; 96365; 96366; 96368; 96375; 96376; 99291

== ENCOUNTER 2019-11-19 14:14 | Observation (INO) | payer MEDICARE, OTHER ==
[2019-11-19] MEDS ORDERED: ASPIRIN 81 MG PO STA (15:06)
[2019-11-19 15:25] LABS: Basophils % (A) 0 %; Eosinophils # (A) 0.2 k/uL (0-0.7); Eosinophils % (A) 2 %; HCT 38.1 % (34.0-46.0); HGB 12.6 gm/dL (11.4-16.0); Lymphocytes # (A) 1.6 k/uL (1.0-4.8); Lymphocytes % (A) 26 %; MCH 29.5 pg (25.0-35.0); MCV 89.2 fL (80.0-100.0); Mean Platelet Volume 8.3; Monocytes # (A) 0.2 k/uL (0-1.0); Monocytes % (A) 4 %; Neutrophils # (A) 4.3 k/uL (1.3-7.7); Neutrophils % (A) 66 %; Platelet Count 193 k/uL (150-450); RBC 4.27 m/uL (3.80-5.40); RDW 15.1 % (11.5-15.5); WBC 6.4 k/uL (3.8-10.6)
[2019-11-19 15:35] LABS: Albumin 3.4 g/dL (3.5-5.0); Magnesium 1.6 mg/dL (1.6-2.3); Potassium 3.8 mmol/L (3.5-5.1); Total Bilirubin 0.7 mg/dL (0.2-1.3); Total Protein 5.5 g/dL (6.3-8.2)
[2019-11-19 15:42] LABS: Prothrombin Time 10.5 sec (9.0-12.0)
[2019-11-19 15:45] LABS: Partial Thromboplastin Time 21.7 sec (22.0-30.0)
--- NOTE | 2019-11-19 15:52 | XR ---
EXAMINATION TYPE: XR chest 2V DATE OF EXAM: 11/19/2019 COMPARISON: 04/27/2019 HISTORY: 38-year-old female with chest pain TECHNIQUE: PA and lateral views FINDINGS: Heart mildly moderately enlarged. Mild interstitial prominence of the chronic appearance. No lamine co nsolidation or pleural effusion. IMPRESSION: Mild to moderate cardiomegaly but otherwise without acute cardiopulmonary process.
--- NOTE | 2019-11-19 16:01 | ED ---
General Adult HPI - General Chief complaint: Recheck/Abnormal Lab/Rx Stated complaint: Abn EKG,sent by pcp Time Seen by Provider: 11/19/19 14:37 Source: patient, RN notes reviewed, old records reviewed Mode of arrival: ambulatory Limitations: no limitations - History of Present Illness Initial comments: 38-year-old female patient with past medical history of atrial fibrillation, coronary artery disease, type 2 diabetes, hypertension, hyperlipidemia prior stent placement of present ED for evaluation of lower extremity edema, she feels as if she is starting to retain some fluid, states that she has a little bit of shortness of breath while laying flat. Denies any chest pain. Denies any other acute complaints. Systemic: Pt denies fatigue, fever/chills, rash. Pt denies weakness, night sweats, weight loss. Neuro: Pt denies headache, visual disturbances, syncope or pre-syncope. HEENT: Pt denies ocular discharge or irritation, otalgia, rhinorrhea, pharyngitis or notable lymphadenopathy. Cardiopulmonary: Pt denies chest pain, heart palpitations, dyspnea on exertion. Abdominal/GI: Pt denies abdominal pain, n/v/d. : Pt denies dysuria, burning w/ urination, frequency/urgency. Denies new onset urinary or bowel incontinence. MSK: Pt denies myalgia, loss of strength or function in extremities. Neuro: Pt denies new onset weakness, paresthesias. - Related Data Home Medications Medication Instructions Recorded Confirmed Ferrous Sulfate [Iron] 325 mg PO DAILY 07/11/18 11/19/19 Montelukast [Singulair] 10 mg PO HS 07/11/18 11/19/19 carvediloL [Carvedilol] 25 mg PO BID 07/11/18 11/19/19 Pantoprazole [Protonix] 40 mg PO BID 04/27/19 11/19/19 hydrALAZINE HCL [Apresoline] 50 mg PO TID 04/27/19 11/19/19 Insulin Glargine,Hum.rec.anlog 40 unit SQ HS 11/19/19 11/19/19 [Lantus Solostar] Nitroglycerin 0.4MG/Hr Patch 1 patch TRANSDERM DAILY 11/19/19 11/19/19 [Nitro-Dur 0.4MG/Hr Patch] Semaglutide [Ozempic] 0.5 mg SQ MO 11/19/19 11/19/19 Previous Rx's Medication Instructions Recorded Aspirin 81 mg PO DAILY chew 08/05/18 Atorvastatin [Lipitor] 80 mg PO HS #30 tab 12/06/18 Clopidogrel [Plavix] 75 mg PO DAILY #30 tab 12/06/18 Nitroglycerin Sl Tabs [Nitrostat] 0.4 mg SUBLINGUAL Q5M PRN #25 tab 12/06/18 Spironolactone [Aldactone] 25 mg PO DAILY #30 tab 12/06/18 Allergies Allergy/AdvReac Type Severity Reaction Status Date / Time cephalexin [From Keflex] Allergy Rash/Hives Verified 11/19/19 18:13 codeine Allergy Rash/Hives Verified 11/19/19 18:13 Iodine and Iodide Containing Allergy Rash/Hives Verified 11/19/19 18:13 Produc Penicillins Allergy Rash/Hives Verified 11/19/19 18:13 tramadol Allergy Rash/Hives Verified 11/19/19 18:13 Review of Systems ROS Statement: Those systems with pertinent positive or pertinent negative responses have been documented in the HPI. ROS Other: All systems not noted in ROS Statement are negative. Past Medical History Past Medical History: Atrial Fibrillation, Asthma, Coronary Artery Disease (CAD), Diabetes Mellitus, GERD/Reflux, Hyperlipidemia, Hypertension, Pulmonary Embolus (PE) Additional Past Medical History / Comment(s): peptic ulcer, gall stones, kidney stone, childhood leukemia History of Any Multi-Drug Resistant Organisms: None Reported Past Surgical History: Section, Heart Catheterization With Stent, Joint Replacement, Tonsillectomy, Tubal Ligation Additional Past Surgical History / Comment(s): 3 stents, partial right knee replacement Past Anesthesia/Blood Transfusion Reactions: No Reported Reaction Date of Last Stent Placement:: 08/02/18 Past Psychological History: Anxiety, Bipolar, Depression, Schizophrenia Smoking Status: Former smoker Past Alcohol Use History: None Reported Past Drug Use History: None Reported - Past Family History Father Family Medical History: Hyperlipidemia, Hypertension Additional Family Medical History / Comment(s): pins in knee, heart stents x 4 General Exam - General Exam Comments Initial Comments: Constitutional: NAD, AOX3, Pt has pleasant affect. HEENT: NC/AT, trachea midline, neck supple, no lymphadenopathy. External ears appear normal, without discharge. Mucous membranes moist. Eyes PERRLA, EOM intact. There is no scleral icterus. No pallor noted. Cardiopulmonary: RRR, no murmurs, rubs or gallops, no JVD noted. Lungs CTAB in anterior and posterior padgett. +2 peripheral edema. Abdominal exam: Abdomen soft and non-distended. Abdomen non-tender to palpation in all 4 quadrants. Bowel sounds active in LLQ. No hepatosplenomegaly. No ecchymosis Neuro: CN II-XII grossly intact. No nuchal rigidity. MSK: Mild amount of posterior calf tenderness bilaterally, homans sign negative bilaterally. Posterior tibialis and radial pulse +2 bilaterally. Sensation intact in upper and lower extremities. Full active ROM in upper and lower extre mities, 5/5 stregnth. Limitations: no limitations Course Vital Signs 11/19/19 11/19/19 11/19/19 14:24 14:51 16:28 Temperature 98.2 F Pulse Rate 92 91 89 Respiratory 16 18 16 Rate Blood Pressure 142/87 163/115 152/97 O2 Sat by Pulse 98 97 97 Oximetry 11/19/19 18:00 Temperature Pulse Rate 91 Respiratory 22 Rate Blood Pressure 166/89 O2 Sat by Pulse 98 Oximetry Medical Decision Making - Medical Decision Making 38-year-old female patient with past medical history of atrial fibrillation, coronary artery disease, type 2 diabetes, hypertension, hyperlipidemia prior stent placement of present ED for evaluation of lower extremity edema, she feels as if she is starting to retain some fluid, states that she has a little bit of shortness of breath while laying flat. Denies any chest pain. Denies any other acute complaints. Patient vital signs are stable, afebrile. Physical exam displayed some lower extremity edema. Chest x-ray reveals mild to moderate cardiomegaly without otherwise acute cardiopulmonary process. Ultrasound of both legs are negative for DVT. Patient administered her home dose of Lasix IV. Will be discharged with close patient follow-up with primary care provider and assistant clinical director for further evaluation. Case discussed with Dr. Pearl, - Lab Data Result diagrams: 11/19/19 15:14 11/19/19 15:14 Lab Results 11/19/19 11/19/19 11/19/19 Range/Units 15:14 15:14 15:14 WBC 6.4 (3.8-10.6) k/uL RBC 4.27 (3.80-5.40) m/uL Hgb 12.6 (11.4-16.0) gm/dL Hct 38.1 (34.0-46.0) % MCV 89.2 (80.0-100.0) fL MCH 29.5 (25.0-35.0) pg MCHC 33.0 (31.0-37.0) g/dL RDW 15.1 (11.5-15.5) % Plt Count 193 (150-450) k/uL Neutrophils % 66 % Lymphocytes % 26 % Monocytes % 4 % Eosinophils % 2 % Basophils % 0 % Neutrophils # 4.3 (1.3-7.7) k/uL Lymphocytes # 1.6 (1.0-4.8) k/uL Monocytes # 0.2 (0-1.0) k/uL Eosinophils # 0.2 (0-0.7) k/uL Basophils # 0.0 (0-0.2) k/uL PT 10.5 (9.0-12.0) sec INR 1.0 (<1.2) APTT 21.7 L (22.0-30.0) sec Sodium 137 (137-145) mmol/L Potassium 3.8 (3.5-5.1) mmol/L Chloride 106 (98-107) mmol/L Carbon Dioxide 25 (22-30) mmol/L Anion Gap 6 mmol/L BUN 20 H (7-17) mg/dL Creatinine 0.97 (0.52-1.04) mg/dL Est GFR (CKD-EPI)AfAm 86 (>60 ml/min/1.73 sqM) Est GFR (CKD-EPI)NonAf 74 (>60 ml/min/1.73 sqM) Glucose 152 H (74-99) mg/dL Calcium 9.0 (8.4-10.2) mg/dL Magnesium 1.6 (1.6-2.3) mg/dL Total Bilirubin 0.7 (0.2-1.3) mg/dL AST 33 (14-36) U/L ALT 49 H (4-34) U/L Alkaline Phosphatase 51 (38-126) U/L Troponin I (0.000-0.034) ng/mL NT-Pro-B Natriuret Pep pg/mL Total Protein 5.5 L (6.3-8.2) g/dL Albumin 3.4 L (3.5-5.0) g/dL 11/19/19 11/19/19 Range/Units 15:14 15:16 WBC (3.8-10.6) k/uL RBC (3.80-5.40) m/uL Hgb (11.4-16.0) gm/dL Hct (34.0-46.0) % MCV (80.0-100.0) fL MCH (25.0-35.0) pg MCHC (31.0-37.0) g/dL RDW (11.5-15.5) % Plt Count (150-450) k/uL Neutrophils % % Lymphocytes % % Monocytes % % Eosinophils % % Basophils % % Neutrophils # (1.3-7.7) k/uL Lymphocytes # (1.0-4.8) k/uL Monocytes # (0-1.0) k/uL Eosinophils # (0-0.7) k/uL Basophils # (0-0.2) k/uL PT (9.0-12.0) sec INR (<1.2) APTT (22.0-30.0) sec Sodium (137-145) mmol/L Potassium (3.5-5.1) mmol/L Chloride (98-107) mmol/L Carbon Dioxide (22-30) mmol/L Anion Gap mmol/L BUN (7-17) mg/dL Creatinine (0.52-1.04) mg/dL Est GFR (CKD-EPI)AfAm (>60 ml/min/1.73 sqM) Est GFR (CKD-EPI)NonAf (>60 ml/min/1.73 sqM) Glucose (74-99) mg/dL Calcium (8.4-10.2) mg/dL Magnesium (1.6-2.3) mg/dL Total Bilirubin (0.2-1.3) mg/dL AST (14-36) U/L ALT (4-34) U/L Alkaline Phosphatase (38-126) U/L Troponin I 0.031 (0.000-0.034) ng/mL NT-Pro-B Natriuret Pep 1830 pg/mL Total Protein (6.3-8.2) g/dL Albumin (3.5-5.0) g/dL - EKG Data -: EKG Interpreted by Me (and Dr. Pearl ) EKG Comments: Ventricular rate 94, NV interval 132, QRS 96, QT/QTC 370/462. Normal sinus rhythm, Possible left atrial enlargement, anterolateral infarct age interment. no concern for acute ischemia at this time. Disposition Clinical Impression: Bilateral lower extremity edema, History of congestive heart failure Disposition: HOME SELF-CARE Condition: Stable Instructions (If sedation given, give patient instructions): Heart Failure (DC) Additional Instructions: Follow-up with primary care provider and assistant clinical director tomorrow. Return to ER with any worsening symptoms. Is patient prescribed a controlled substance at d/c from ED?: No Referrals: Odell Sena MD [Primary Care Provider] - 1-2 days
--- NOTE | 2019-11-19 17:34 | US ---
EXAMINATION TYPE: US venous doppler duplex LE DATE OF EXAM: 11/19/2019 5:17 PM COMPARISON: NONE CLINICAL HISTORY: pain swelling. Bilateral leg swelling, history of DVT SIDE PERFORMED: Bilateral TECHNIQUE: The lower extremity deep venous system is examined utilizing real time linear array sonog jennifer with graded compression, doppler sonography and color-flow sonography. VESSELS IMAGED: External Iliac Vein (EIV) Common Femoral Vein Deep Femoral Vein Greater Saphenous Vein * Femoral Vein Popliteal Vein Small Saphenous Vein * Proximal Calf Veins (* superficial vessels) Right Leg: Appears negative for DVT Left Leg: Appears negative for DVT IMPRESSION: No evidence of deep vein thrombosis in both legs.
[2019-11-19] MEDS ORDERED: FUROSEMIDE 10 MG/ML 4 ML VIAL IV STA (18:12)
[2019-11-19] MEDS ORDERED: NITROGLYCERIN SL TABS 0.4 MG TAB SUBLINGUAL PRN (18:40)
--- NOTE | 2019-11-19 18:50 | ED ---
Medical Decision Making - Medical Decision Making I discussed case with Dr. Sena who wanted her to be admitted to the hospital. Patient will be admitted to to Dr. Sena with cardiology consult for further monitoring. Case discussed with Dr. Pearl. - Lab Data Result diagrams: 11/19/19 15:14 11/19/19 15:14 Lab Results 11/19/19 11/19/19 11/19/19 Range/Units 15:14 15:14 15:14 WBC 6.4 (3.8-10.6) k/uL RBC 4.27 (3.80-5.40) m/uL Hgb 12.6 (11.4-16.0) gm/dL Hct 38.1 (34.0-46.0) % MCV 89.2 (80.0-100.0) fL MCH 29.5 (25.0-35.0) pg MCHC 33.0 (31.0-37.0) g/dL RDW 15.1 (11.5-15.5) % Plt Count 193 (150-450) k/uL Neutrophils % 66 % Lymphocytes % 26 % Monocytes % 4 % Eosinophils % 2 % Basophils % 0 % Neutrophils # 4.3 (1.3-7.7) k/uL Lymphocytes # 1.6 (1.0-4.8) k/uL Monocytes # 0.2 (0-1.0) k/uL Eosinophils # 0.2 (0-0.7) k/uL Basophils # 0.0 (0-0.2) k/uL PT 10.5 (9.0-12.0) sec INR 1.0 (<1.2) APTT 21.7 L (22.0-30.0) sec Sodium 137 (137-145) mmol/L Potassium 3.8 (3.5-5.1) mmol/L Chloride 106 (98-107) mmol/L Carbon Dioxide 25 (22-30) mmol/L Anion Gap 6 mmol/L BUN 20 H (7-17) mg/dL Creatinine 0.97 (0.52-1.04) mg/dL Est GFR (CKD-EPI)AfAm 86 (>60 ml/min/1.73 sqM) Est GFR (CKD-EPI)NonAf 74 (>60 ml/min/1.73 sqM) Glucose 152 H (74-99) mg/dL Calcium 9.0 (8.4-10.2) mg/dL Magnesium 1.6 (1.6-2.3) mg/dL Total Bilirubin 0.7 (0.2-1.3) mg/dL AST 33 (14-36) U/L ALT 49 H (4-34) U/L Alkaline Phosphatase 51 (38-126) U/L Troponin I (0.000-0.034) ng/mL NT-Pro-B Natriuret Pep pg/mL Total Protein 5.5 L (6.3-8.2) g/dL Albumin 3.4 L (3.5-5.0) g/dL 11/19/19 11/19/19 Range/Units 15:14 15:16 WBC (3.8-10.6) k/uL RBC (3.80-5.40) m/uL Hgb (11.4-16.0) gm/dL Hct (34.0-46.0) % MCV (80.0-100.0) fL MCH (25.0-35.0) pg MCHC (31.0-37.0) g/dL RDW (11.5-15.5) % Plt Count (150-450) k/uL Neutrophils % % Lymphocytes % % Monocytes % % Eosinophils % % Basophils % % Neutrophils # (1.3-7.7) k/uL Lymphocytes # (1.0-4.8) k/uL Monocytes # (0-1.0) k/uL Eosinophils # (0-0.7) k/uL Basophils # (0-0.2) k/uL PT (9.0-12.0) sec INR (<1.2) APTT (22.0-30.0) sec Sodium (137-145) mmol/L Potassium (3.5-5.1) mmol/L Chloride (98-107) mmol/L Carbon Dioxide (22-30) mmol/L Anion Gap mmol/L BUN (7-17) mg/dL Creatinine (0.52-1.04) mg/dL Est GFR (CKD-EPI)AfAm (>60 ml/min/1.73 sqM) Est GFR (CKD-EPI)NonAf (>60 ml/min/1.73 sqM) Glucose (74-99) mg/dL Calcium (8.4-10.2) mg/dL Magnesium (1.6-2.3) mg/dL Total Bilirubin (0.2-1.3) mg/dL AST (14-36) U/L ALT (4-34) U/L Alkaline Phosphatase (38-126) U/L Troponin I 0.031 (0.000-0.034) ng/mL NT-Pro-B Natriuret Pep 1830 pg/mL Total Protein (6.3-8.2) g/dL Albumin (3.5-5.0) g/dL Disposition Clinical Impression: Bilateral lower extremity edema, History of congestive heart failure, CHF exacerbation Disposition: ADMITTED IP TO THIS HOSP Condition: Fair Referrals: Odell Sena MD [Primary Care Provider] - 1-2 days
[2019-11-19] MEDS ORDERED: carvediloL 12.5 MG TAB PO STA (19:48)
[2019-11-19] MEDS ORDERED: FUROSEMIDE 10 MG/ML 10 ML VIAL IV SCH (21:00)
[2019-11-19] MEDS ORDERED: HEPARIN SOD,PORK IN 0.45% NACL 25,000 UNIT in 0.45% NACL 1 250ML.BAG IV SCH (21:45)
[2019-11-19] MEDS ORDERED: FUROSEMIDE 10 MG/ML 10 ML VIAL IV ONE (22:00)
[2019-11-19 22:13] LABS: Glucose,Whole Blood 171 mg/dL (75-99)
[2019-11-19] MEDS: ATORVASTATIN 80 MG TAB PO SCH (22:13)
[2019-11-19] MEDS: PANTOPRAZOLE 40 MG TABLET PO SCH (22:13)
[2019-11-19] MEDS: hydrALAZINE HCL 50 MG TAB PO SCH (22:13)
[2019-11-19] MEDS: MONTELUKAST 10 MG TAB PO SCH (22:13)
[2019-11-19] MEDS: INSULIN DETEMIR (LEVEMIR) 100 UNIT/ML SYR SQ SCH (22:28)
[2019-11-20] MEDS: FUROSEMIDE 10 MG/ML 4 ML VIAL IV SCH ×3 (03:07→17:34)
[2019-11-20 03:50] LABS: Cholesterol 150 mg/dL (<200); HDL Cholesterol 29 mg/dL (40-60); LDL Cholesterol,Calculated 74 mg/dL (0-99); Triglycerides 236 mg/dL (<150)
[2019-11-20 03:53] LABS: Prothrombin Time 10.7 sec (9.0-12.0)
[2019-11-20] MEDS: HEPARIN SODIUM,PORCINE 5,000 UNIT/ML 1 ML VIAL IV PRN ×2 (05:10→13:08)
[2019-11-20 06:31] LABS: Glucose,Whole Blood 115 mg/dL (75-99)
[2019-11-20] MEDS: carvediloL 12.5 MG TAB PO SCH ×2 (06:43→17:33)
[2019-11-20] MEDS ORDERED: ASPIRIN 325 MG TAB PO SCH (09:00)
[2019-11-20] MEDS ORDERED: lisinopriL 5 MG TAB PO SCH (09:00)
[2019-11-20] MEDS: SPIRONOLACTONE 25 MG TAB PO SCH (09:42)
[2019-11-20] MEDS: PANTOPRAZOLE 40 MG TABLET PO SCH ×2 (09:42→21:37)
[2019-11-20] MEDS: FERROUS SULFATE 325 MG TAB PO SCH (09:42)
[2019-11-20] MEDS: ASPIRIN 81 MG PO SCH (09:42)
[2019-11-20] MEDS: CLOPIDOGREL 75 MG TAB PO SCH (09:42)
[2019-11-20] MEDS: hydrALAZINE HCL 50 MG TAB PO SCH ×3 (09:43→21:37)
[2019-11-20] MEDS: lisinopriL 20 MG TAB PO SCH (09:50)
[2019-11-20] MEDS: NITROGLYCERIN 0.4MG/HR PATCH TRANSDERM SCH (09:50)
--- NOTE | 2019-11-20 10:08 | P.CRDCN ---
<Smita Hernandez - Last Filed: 11/20/19 09:57> History of Present Illness History of present illness: HISTORY OF PRESENTING ILLNESS This is a pleasant 38-year-old female past medical history significant for coronary artery disease, myocardial infarction, ischemic cardiomyopathy, diabetes mellitus, hypertension, dyslipidemia, chronic systolic heart failure, mental illness and former nicotine dependence. She follows in the office with Dr. Davila. We have been asked to see in consultation for heart failure. For the previous one week as noticed increased lower extremity edema. She states she has been taking her Lasix as recommended on Mondays and however she is not urinating as frequently as previous. She denies a change in her diet. Over the weekend she started noticing increasing shortness of breath and orthopnea. She denies symptoms of chest discomfort, dizziness or palpitations. On arrival she was initiated on IV Lasix. This morning she states her orthopnea and breathing have improved however she continues to have lower extremity edema. She is resting comfortably laying flat in bed. She states she didn't get much sleep unfortunately due to frequent urination. No documented output. Her most recent echocardiogram revealed improved LV systolic function with ejection fr action 50-55%. However at the same time her cardiac catheterization revealed an ejection fraction of 40% with anterior apical akinesia and questionable apical thrombosis. DIAGNOSTICS EKG reveals sinus mechanism with no acute ischemic changes with poor R-wave progression. Chest xray cardiomegaly with no acute cardiopulmonary process or pleural effusion. Laboratory reviewed, CBC unremarkable, sodium 137, potassium 3.8, creatinine 0.97, magnesium 1.6, troponin 0.031, 0.036, 0.024 and an T proBNP 1830. LDL 74.. Current cardiac medications include Lasix 40 mg on Monday and , aspirin 81 mg daily, atorvastatin 80 mg daily, Plavix 75 mg daily, carvedilol 25 mg twice a day, hydralazine 50 mg 3 times a day and Aldactone 25 mg daily. REVIEW OF SYSTEMS At the time of my exam: CONSTITUTIONAL: Denies fever or chills. CARDIOVASCULAR: Denies chest pain, shortness of breath, orthopnea, PND or palpitations. RESPIRATORY: Denies cough. GASTROINTESTINAL: Denies abdominal pain, diarrhea, constipation, nausea or vomiting. MUSCULOSKELETAL: Denies myalgias. NEUROLOGIC: Denies numbness, tingling or weakness. ENDOCRINE: Denies fatigue, weight change, polydipsia or polyurina. GENITOURINARY: Denies burning, hematuria or urgency with micturation. HEMATOLOGIC: Denies history of anemia or bleeding. PHYSICAL EXAMINATION Blood pressure 147/96 heart rate 86 afebrile and maintaining oxygen saturation on room air. CONSTITUTIONAL: No apparent distress. HEENT: Head is normocephalic. Pupils are equal, round. Sclerae anicteric. Mucous membranes of the mouth are moist. No JVD. No carotid bruit. CHEST EXAMINATION: Lungs are clear to auscultation. No chest wall tenderness is noted on palpation or with deep breathing. HEART EXAMINATION: Regular rate and rhythm. S1, S2 heard. No murmurs, gallops or rub. ABDOMEN: Soft, nontender. Positive bowel sounds. EXTREMITIES: 2+ peripheral pulses, 2+ bilateral lower extremity pitting edema up to the knee and no calf tenderness. NEUROLOGIC EXAMINATION: Patient is awake, alert and oriented x3. ASSESSMENT Acute on chronic systolic heart failure Troponin leak not indicative of an acute coronary event was secondary to oxygen supply demand mismatch Ischemic cardiomyopathy Coronary artery disease status post PCI in the setting of a myocardial infarctio n Diabetes mellitus Hypertension Dyslipidemia Obesity, 39 PLAN Continue IV diuresis. Repeat 2-D echocardiogram and Doppler study to assess cardiac structure and function. Documented accurate intake and output along with daily weights. Follow renal function and electrolytes in the morning. Lisinopril 20 mg daily was on her medication list with Dr. Davila however she states her primary care physician discontinued this medication for unknown reason. We will resume it today. Further recommendations to follow based upon clinical course. Thank you kindly for this consultation. Nurse Practitioner note has been reviewed, I agree with a documented findings and plan of care. Patient was seen and examined. Past Medical History Past Medical History: Atrial Fibrillation, Asthma, Coronary Artery Disease (CAD), Diabetes Mellitus, GERD/Reflux, Hyperlipidemia, Hypertension, Myocardial Infarction ([place]), Pulmonary Embolus ([place]) Additional Past Medical History / Comment(s): peptic ulcer, gall stones, kidney stone, childhood leukemia Last Myocardial Infarction Date:: 05/01/2019 History of Any Multi-Drug Resistant Organisms: None Reported Past Surgical History: Section, Heart Catheterization With Stent, Joint Replacement, Tonsillectomy, Tubal Ligation Additional Past Surgical History / Comment(s): 4 stents, partial right knee replacement Past Anesthesia/Blood Transfusion Reactions: No Reported Reaction Date of Last Stent Placement:: 08/02/18 Past Psychological History: Anxiety, Bipolar, Depression, Schizophrenia Smoking Status: Former smoker Past Alcohol Use History: None Reported Past Drug Use History: None Reported - Past Family History Father Family Medical History: Hyperlipidemia, Hypertension Additional Family Medical History / Comment(s): pins in knee, heart stents x 4 Medications and Allergies Home Medications Medication Instructions Recorded Confirmed Type Ferrous Sulfate [Iron] 325 mg PO DAILY 07/11/18 11/19/19 History Montelukast [Singulair] 10 mg PO HS 07/11/18 11/19/19 History carvediloL [Carvedilol] 25 mg PO BID 07/11/18 11/19/19 History Aspirin 81 mg PO DAILY chew 08/05/18 11/19/19 Rx Atorvastatin [Lipitor] 80 mg PO HS #30 tab 12/06/18 11/19/19 Rx Clopidogrel [Plavix] 75 mg PO DAILY #30 tab 12/06/18 11/19/19 Rx Nitroglycerin Sl Tabs [Nitrostat] 0.4 mg SUBLINGUAL Q5M PRN #25 tab 12/06/18 11/19/19 Rx Spironolactone [Aldactone] 25 mg PO DAILY #30 tab 12/06/18 11/19/19 Rx Pantoprazole [Protonix] 40 mg PO BID 04/27/19 11/19/19 History hydrALAZINE HCL [Apresoline] 50 mg PO TID 04/27/19 11/19/19 History Insulin Glargine,Hum.rec.anlog 40 unit SQ HS 11/19/19 11/19/19 History [Lantus Solostar] Nitroglycerin 0.4MG/Hr Patch 1 patch TRANSDERM DAILY 11/19/19 11/19/19 History [Nitro-Dur 0.4MG/Hr Patch] Semaglutide [Ozempic] 0.5 mg SQ MO 11/19/19 11/19/19 History Allergies Allergy/AdvReac Type Severity Reaction Status Date / Time cephalexin [From Keflex] Allergy Rash/Hives Verified 11/19/19 18:13 codeine Allergy Rash/Hives Verified 11/19/19 18:13 Iodine and Iodide Containing Allergy Rash/Hives Verified 11/19/19 18:13 Produc Penicillins Allergy Rash/Hives Verified 11/19/19 18:13 tramadol Allergy Rash/Hives Verified 11/19/19 18:13 Physical Exam Vitals: Vital Signs Temp Pulse Pulse Resp BP BP Pulse Ox 11/20/19 03:00 98 F 86 18 119/86 99 11/19/19 21:00 98.1 F 96 18 152/86 97 11/19/19 20:33 98.1 F 96 18 152/86 97 11/19/19 20:14 98.3 F 11/19/19 20:00 92 18 156/95 99 11/19/19 19:49 91 18 185/123 96 11/19/19 19:00 89 20 170/89 99 11/19/19 18:00 91 22 166/89 98 11/19/19 16:28 89 16 152/97 97 11/19/19 14:51 91 18 163/115 97 11/19/19 14:24 98.2 F 92 16 142/87 98 Intake and Output 11/19/19 11/20/19 11/20/19 22:59 06:59 14:59 Intake Total 450 66.25 Balance 450 66.25 Intake: Intake, IV Titration 66.25 Amount Heparin Sod,Pork in 0.45% 66.25 NaCl 25,000 unit In 0.45 % NaCl 1 250ml.bag @ 10 UNITS/KG/HR 9.888 mls/hr IV .Q24H [facility] Rx#: [id number] Oral 450 0 Other: Voiding Method Toilet Toilet # Voids 2 8 Weight 98.883 kg Results 11/19/19 15:14 11/19/19 15:14 Cardiac Enzymes 11/19/19 11/19/19 11/19/19 Range/Units 15:14 15:14 19:07 AST 33 (14-36) U/L Troponin I 0.031 0.036 H* (0.000-0.034) ng/mL 11/19/19 Range/Units 21:35 AST (14-36) U/L Troponin I 0.024 (0.000-0.034) ng/mL Coagulation 11/19/19 11/20/19 Range/Units 15:14 03:21 PT 10.5 10.7 (9.0-12.0) sec APTT 21.7 L 27.0 (22.0-30.0) sec Lipids 11/20/19 Range/Units 03:21 Triglycerides 236 H (<150) mg/dL Cholesterol 150 (<200) mg/dL HDL Cholesterol 29 L (40-60) mg/dL CBC 11/19/19 Range/Units 15:14 WBC 6.4 (3.8-10.6) k/uL RBC 4.27 (3.80-5.40) m/uL Hgb 12.6 (11.4-16.0) gm/dL Hct 38.1 (34.0-46.0) % Plt Count 193 (150-450) k/uL Comprehensive Metabolic Panel 11/19/19 Range/Units 15:14 Sodium 137 (137-145) mmol/L Potassium 3.8 (3.5-5.1) mmol/L Chloride 106 (98-107) mmol/L Carbon Dioxide 25 (22-30) mmol/L BUN 20 H (7-17) mg/dL Creatinine 0.97 (0.52-1.04) mg/dL Glucose 152 H (74-99) mg/dL Calcium 9.0 (8.4-10.2) mg/dL AST 33 (14-36) U/L ALT 49 H (4-34) U/L Alkaline Phosphatase 51 (38-126) U/L Total Protein 5.5 L (6.3-8.2) g/dL Albumin 3.4 L (3.5-5.0) g/dL Current Medications Generic Name Dose Route Start Last Admin Trade Name Freq PRN Reason Stop Dose Admin Aspirin 325 mg 11/20/19 09:00 Aspirin PO DAILY [facility] Aspirin 81 mg 11/20/19 09:00 Aspirin PO DAILY [facility] Atorvastatin Calcium 80 mg 11/19/19 22:00 11/19/19 22:13 Lipitor PO 80 mg HS [facility] Administration Carvedilol 25 mg 11/20/19 07:30 11/20/19 06:43 Coreg PO 25 mg AC-BID [facility] Administration Clopidogrel Bisulfate 75 mg 11/20/19 09:00 Plavix PO DAILY [facility] Ferrous Sulfate 325 mg 11/20/19 09:00 Feosol PO DAILY [facility] Furosemide 40 mg 11/20/19 00:00 11/20/19 03:07 Lasix IV 40 mg Q8HR [facility] Administration Heparin Sodium (Porcine) 0 unit 11/19/19 21:42 11/20/19 05:10 Heparin IV 4,000 unit PER PROTOCOL PRN Administration Low PTT Protocol Hydralazine HCl 50 mg 11/19/19 22:00 11/19/19 22:13 Apresoline PO 50 mg TID [facility] Administration Heparin Sodium/Sodium Chloride 250 mls @ 9.888 mls/hr 11/19/19 21:45 11/20/19 05:09 25,000 unit/ Sodium Chloride IV 13 units/kg/hr .Q24H [facility] 12.855 mls/hr Titration Protocol 10 UNITS/KG/HR Insulin Detemir 40 unit 11/19/19 22:00 11/19/19 22:28 Levemir SQ 40 unit HS [facility] Administration Montelukast Sodium 10 mg 11/19/19 22:00 11/19/19 22:13 Singulair PO 10 mg HS [facility] Administration Nitroglycerin 0.4 mg 11/19/19 18:40 Nitrostat SUBLINGUAL Q5M PRN Chest Pain Nitroglycerin 1 patch 11/20/19 09:00 Nitro-Dur 0.4mg/Hr Patch TRANSDERM DAILY [facility] Non-Formulary Medication 0.5 mg 11/24/19 09:00 Semaglutide [Ozempic] SQ WEEKLY [facility] Pantoprazole Sodium 40 mg 11/19/19 22:00 11/19/19 22:13 Protonix PO 40 mg BID [facility] Administration Spironolactone 25 mg 11/20/19 09:00 Aldactone PO DAILY [facility] Intake and Output 11/19/19 11/20/19 11/20/19 22:59 06:59 14:59 Intake Total 450 66.25 Balance 450 66.25 Intake: Intake, IV Titration 66.25 Amount Heparin Sod,Pork in 0.45% 66.25 NaCl 25,000 unit In 0.45 % NaCl 1 250ml.bag @ 10 UNITS/KG/HR 9.888 mls/hr IV .Q24H [facility] Rx#: [id number] Oral 450 0 Other: Voiding Method Toilet Toilet # Voids 2 8 Weight 98.883 kg 11/19/19 15:14 11/19/19 15:14 <Karl Calderon - Last Filed: 11/20/19 12:02> History of Present Illness History of present illness: Patient seen and examined and agree with assessment and plan as above. Reviewed patient's echocardiogram from today. Patient does have cardiomyopathy with ejection fraction 35-40% with an apical thrombus. Patient denies any chest pain or pressure and do not suspect acute coronary syndrome. Unclear as to why she was taken off of her KALPANA inhibitor and I did discuss the importance of guidelines directed medical therapy for her systolic heart failure. We will add KALPANA inhibitor back. Continue to optimize heart failure regimen. Continue with IV diuresis. Continue with heparin drip for now and transition to NOAC before discharge. Further recommendations to follow. Physical Exam Vitals: Vital Signs Temp Pulse Pulse Resp BP BP Pulse Ox 11/20/19 09:00 97.9 F 86 16 147/96 99 11/20/19 03:00 98 F 86 18 119/86 99 11/19/19 21:00 98.1 F 96 18 152/86 97 11/19/19 20:33 98.1 F 96 18 152/86 97 11/19/19 20:14 98.3 F 11/19/19 20:00 92 18 156/95 99 11/19/19 19:49 91 18 185/123 96 11/19/19 19:00 89 20 170/89 99 11/19/19 18:00 91 22 166/89 98 11/19/19 16:28 89 16 152/97 97 11/19/19 14:51 91 18 163/115 97 11/19/19 14:24 98.2 F 92 16 142/87 98 Intake and Output 11/19/19 11/20/19 11/20/19 22:59 06:59 14:59 Intake Total 450 66.25 Balance 450 66.25 Intake: Intake, IV Titration 66.25 Amount Heparin Sod,Pork in 0.45% 66.25 NaCl 25,000 unit In 0.45 % NaCl 1 250ml.bag @ 10 UNITS/KG/HR 9.888 mls/hr IV .Q24H [facility] Rx#: [id number] Oral 450 0 Other: Voiding Method Toilet Toilet Toilet # Voids 2 8 Weight 98.883 kg 96.7 kg Results 11/19/19 15:14 11/19/19 15:14 Cardiac Enzymes 11/19/19 11/19/19 11/19/19 Range/Units 15:14 15:14 19:07 AST 33 (14-36) U/L Troponin I 0.031 0.036 H* (0.000-0.034) ng/mL 11/19/19 Range/Units 21:35 AST (14-36) U/L Troponin I 0.024 (0.000-0.034) ng/mL Coagulation 11/19/19 11/20/19 Range/Units 15:14 03:21 PT 10.5 10.7 (9.0-12.0) sec APTT 21.7 L 27.0 (22.0-30.0) sec Lipids 11/20/19 Range/Units 03:21 Triglycerides 236 H (<150) mg/dL Cholesterol 150 (<200) mg/dL HDL Cholesterol 29 L (40-60) mg/dL CBC 11/19/19 Range/Units 15:14 WBC 6.4 (3.8-10.6) k/uL RBC 4.27 (3.80-5.40) m/uL Hgb 12.6 (11.4-16.0) gm/dL Hct 38.1 (34.0-46.0) % Plt Count 193 (150-450) k/uL Comprehensive Metabolic Panel 11/19/19 Range/Units 15:14 Sodium 137 (137-145) mmol/L Potassium 3.8 (3.5-5.1) mmol/L Chloride 106 (98-107) mmol/L Carbon Dioxide 25 (22-30) mmol/L BUN 20 H (7-17) mg/dL Creatinine 0.97 (0.52-1.04) mg/dL Glucose 152 H (74-99) mg/dL Calcium 9.0 (8.4-10.2) mg/dL AST 33 (14-36) U/L ALT 49 H (4-34) U/L Alkaline Phosphatase 51 (38-126) U/L Total Protein 5.5 L (6.3-8.2) g/dL Albumin 3.4 L (3.5-5.0) g/dL Current Medications Generic Name Dose Route Start Last Admin Trade Name Freq PRN Reason Stop Dose Admin Aspirin 81 mg 11/20/19 09:00 11/20/19 09:42 Aspirin PO 81 mg DAILY [facility] Administration Atorvastatin Calcium 80 mg 11/19/19 22:00 11/19/19 22:13 Lipitor PO 80 mg HS [facility] Administration Carvedilol 25 mg 11/20/19 07:30 11/20/19 06:43 Coreg PO 25 mg AC-BID [facility] Administration Clopidogrel Bisulfate 75 mg 11/20/19 09:00 11/20/19 09:42 Plavix PO 75 mg DAILY [facility] Administration Ferrous Sulfate 325 mg 11/20/19 09:00 11/20/19 09:42 Feosol PO 325 mg DAILY [facility] Administration Furosemide 40 mg 11/20/19 00:00 11/20/19 09:42 Lasix IV 40 mg Q8HR [facility] Administration Heparin Sodium (Porcine) 0 unit 11/19/19 21:42 11/20/19 05:10 Heparin IV 4,000 unit PER PROTOCOL PRN Administration Low PTT Protocol Hydralazine HCl 50 mg 11/19/19 22:00 11/20/19 09:43 Apresoline PO 50 mg TID [facility] Administration Insulin Detemir 40 unit 11/19/19 22:00 11/19/19 22:28 Levemir SQ 40 unit HS [facility] Administration Lisinopril 20 mg 11/20/19 09:30 11/20/19 09:50 Zestril PO 20 mg DAILY [facility] Administration Montelukast Sodium 10 mg 11/19/19 22:00 11/19/19 22:13 Singulair PO 10 mg HS [facility] Administration Nitroglycerin 0.4 mg 11/19/19 18:40 Nitrostat SUBLINGUAL Q5M PRN Chest Pain Nitroglycerin 1 patch 11/20/19 09:00 11/20/19 09:50 Nitro-Dur 0.4mg/Hr Patch TRANSDERM 1 patch DAILY [facility] Administration Non-Formulary Medication 0.5 mg 11/24/19 09:00 Semaglutide [Ozempic] SQ WEEKLY [facility] Pantoprazole Sodium 40 mg 11/19/19 22:00 11/20/19 09:42 Protonix PO 40 mg BID [facility] Administration Spironolactone 25 mg 11/20/19 09:00 11/20/19 09:42 Aldactone PO 25 mg DAILY [facility] Administration Intake and Output 11/19/19 11/20/19 11/20/19 22:59 06:59 14:59 Intake Total 450 66.25 Balance 450 66.25 Intake: Intake, IV Titration 66.25 Amount Heparin Sod,Pork in 0.45% 66.25 NaCl 25,000 unit In 0.45 % NaCl 1 250ml.bag @ 10 UNITS/KG/HR 9.888 mls/hr IV .Q24H [facility] Rx#: [id number] Oral 450 0 Other: Voiding Method Toilet Toilet Toilet # Voids 2 8 Weight 98.883 kg 96.7 kg Patient Weight 11/21/19 06:59 Weight 96.7 kg 11/19/19 15:14 11/19/19 15:14
--- NOTE | 2019-11-20 10:38 | ECHOF ---
Referral Reason:sob, trop eleva MEASUREMENTS -------- HEIGHT: 157.5 cm WEIGHT: 98.9 kg BP: RVIDd: 2.9 cm (< 3.3) IVSd: 1.2 cm (0.6 - 1.1) LVIDd: 4.9 cm (3.9 - 5.3) LVPWd: 1.8 cm (0.6 - 1.1) IVSs: 1.6 cm LVIDs: 3.7 cm LVPWs: 2.1 cm LAESV Index (A-L): 52.02 ml/m Ao Diam: 2.2 cm (2.0 - 3.7) AV Cusp: 1.8 cm (1.5 - 2.6) MV EXCURSION: 19.783 mm (> 18.000) MV EF SLOPE: 142 mm/s (70 - 150) EPSS: 0.7 cm MV E Terrell: 1.05 m/s MV DecT: 57 ms MV A Terrell: 0.21 m/s MV E/A Ratio: 4.96 RAP: 5.00 mmHg RVSP: 47.77 mmHg FINDINGS -------- Sinus rhythm. This was a techncally difficult study with suboptimal views, , Lumason utilized for enhancement of im ages. The left ventricular size is normal. There is borderline concentric left ventricular hypertrophy. Overall left ventricular systolic function is moderately impaired with, an EF between 35 - 40 %. T [id number] Increased Grade III Diastolic Dysfunction. The right ventricle is normal in size. The left atrium is markedly dilated. LA is severely dilated >40 ml/m2 The right atrial size is normal. 5.0mg OF Lumason UTLIZED: 2 OR MORE WALL SEGMENTS NOT VISUALIZED. The aortic valve is trileaflet, and appears structurally normal. No aortic stenosis or regurgitation. [id number] mitral regurgitation is present. No regurgitation noted There is moderate pulmonary hypertension. There is no pulmonic regurgitation present. Thrombus seen in [place] of heart. The aortic root size is normal. There is a trivial pericardial effusion present. CONCLUSIONS -------- 1. This was a techncally difficult study with suboptimal views, , Lumason utilized for enhancement of images. 2. The left ventricular size is normal. 3. There is borderline concentric left ventricular hypertrophy. 4. Overall left ventricular systolic function is moderately impaired with, an EF between 35 - 40 %. 5. Increased Grade III Diastolic Dysfunction. 6. The right ventricle is normal in size. 7. The left atrium is markedly dilated. 8. LA is severely dilated >40 ml/m2 9. The right atrial size is normal. 10. [id number] mitral regurgitation is present. 11. No regurgitation noted 12. There is moderate pulmonary hypertension. 13. Thrombus seen in [place] of heart. 14. There is a trivial pericardial effusion present. GRAIN PACKER: Roberta Aleman RDCS
[2019-11-20 11:35] LABS: Glucose,Whole Blood 271 mg/dL (75-99)
[2019-11-20] MEDS: HEPARIN SOD,PORK IN 0.45% NACL 25,000 UNIT in 0.45% NACL 1 250ML.BAG IV SCH ×3 (13:03→20:43)
[2019-11-20 13:37] VITALS: BMI 38.9
[2019-11-20] MEDS ORDERED: NITROGLYCERIN SL TABS 0.4 MG TAB SUBLINGUAL PRN (14:12)
--- NOTE | 2019-11-20 17:44 | PN ---
PROGRESS NOTE DATE OF SERVICE: 11/20/2019 CHIEF COMPLAINT: Congestive heart failure. HISTORY OF PRESENT ILLNESS: This lady is doing a little bit better. She has received several doses of IV Lasix. She has had no chest pain. PHYSICAL EXAMINATION: Chest is quite clear. The cardiac exam is normal sinus rhythm and there are no murmurs or extra sounds. The abdomen is soft and nontender. Extremities are normal. IMPRESSION: 1. Acute congestive heart failure. 2. Chronic congestive heart failure. 3. Coronary artery disease. PLAN: 1. Continue with diuresis. 2. Echocardiogram is being done at this time. 3. Await Cardiology consult. MMODL / IJN: [id number] /
--- NOTE | 2019-11-20 17:56 | HP ---
HISTORY AND PHYSICAL CHIEF COMPLAINT: Shortness of breath. HISTORY OF PRESENT ILLNESS: This is another admission for this 38-year-old white female who has an extensive history of coronary artery disease and congestive heart failure. She has been doing well of late, including having good control of her diabetes, but she presented to the office on the day of admission with shortness of breath and orthopnea. She had a chest x-ray which demonstrated cardiomegaly with some congestive changes. She had no chest pain. EKG was unchanged. There was concern that she may do poorly treated as an outpatient. It was decided to admit her for IV diuresis. REVIEW OF SYSTEMS: She has had no headaches, neurologic problems, hemoptysis, pleurisy, etc. She has had orthopnea. She has had no blackouts, TIAs, palpitations, abdominal pain, nausea, vomiting, melena, hematochezia, jaundice, renal failure, hematuria, frequency, urgency, dysuria, incontinence, etc. Past medical history, family history, and personal and social histories can all be found in previous admitting and discharge summaries. Her medication profile can be found in her MAR. PHYSICAL EXAMINATION: Blood pressure is 131/85 with a pulse of 78 and regular. Respirations were 36. In general she appeared to be overweight and slightly dyspneic. Skin was dry. Head, ears, eyes, nose, mouth and throat were normal. Neck veins could not be assessed. Chest demonstrated decreased breath sounds throughout with scattered rales and rhonchi. Cardiac exam demonstrated sinus rhythm with no murmurs. Abdomen was soft, nontender and there were no masses or visceromegaly. Extremities were normal. Neurologically she was intact. She is admitted to the hospital with diagnoses: 1. Acute congestive heart failure. 2. Chronic congestive heart failure. 3. Coronary artery disease. 4. Ischemic cardiomyopathy. 5. Insulin-dependent diabetes mellitus. PLAN: 1. Bed rest. 2. IV fluids. 3. Diuresis. 4. Consult Cardiology. 5. Rule out advancing coronary artery disease. MMODL / IJN: [id number] /
[2019-11-20 18:27] LABS: Glucose,Whole Blood 133 mg/dL (75-99)
[2019-11-20 21:34] LABS: Glucose,Whole Blood 206 mg/dL (75-99)
[2019-11-20] MEDS: ATORVASTATIN 80 MG TAB PO SCH (21:37)
[2019-11-20] MEDS: MONTELUKAST 10 MG TAB PO SCH (21:37)
[2019-11-20] MEDS: INSULIN DETEMIR (LEVEMIR) 100 UNIT/ML SYR SQ SCH (21:38)
[2019-11-21] MEDS: FUROSEMIDE 10 MG/ML 4 ML VIAL IV SCH (00:35)
[2019-11-21 06:38] LABS: Glucose,Whole Blood 147 mg/dL (75-99)
[2019-11-21] MEDS: carvediloL 12.5 MG TAB PO SCH ×2 (06:38→16:54)
[2019-11-21 06:47] LABS: Prothrombin Time 10.8 sec (9.0-12.0)
[2019-11-21 07:08] LABS: Potassium 3.6 mmol/L (3.5-5.1)
[2019-11-21] MEDS ORDERED: ATORVASTATIN 80 MG TAB PO STA (07:59)
[2019-11-21] MEDS ORDERED: SODIUM CHLORIDE 0.9% 1,000 ML in EMPTY BAG 1 BAG IV ONE (07:59)
[2019-11-21] MEDS ORDERED: ALPRAZolam 0.25 MG TAB PO PRN (07:59)
[2019-11-21] MEDS ORDERED: NITROGLYCERIN SL TABS 0.4 MG TAB SUBLINGUAL PRN (07:59)
[2019-11-21] MEDS ORDERED: ASPIRIN 325 MG TAB PO STA (07:59)
[2019-11-21] MEDS ORDERED: ALPRAZolam 0.5 MG TAB PO PRN (07:59)
[2019-11-21] MEDS ORDERED: diphenhydrAMINE 25 MG CAP PO STA (08:01)
[2019-11-21] MEDS ORDERED: methylPREDNISolone SOD SUCCI 125 MG/2 ML VIAL IV STA (08:01)
[2019-11-21 08:02] LABS: Partial Thromboplastin Time 61.8 sec (22.0-30.0)
[2019-11-21] MEDS: FERROUS SULFATE 325 MG TAB PO SCH (08:32)
[2019-11-21] MEDS: hydrALAZINE HCL 50 MG TAB PO SCH ×3 (08:32→21:36)
[2019-11-21] MEDS: PANTOPRAZOLE 40 MG TABLET PO SCH ×2 (08:32→21:36)
[2019-11-21] MEDS: CLOPIDOGREL 75 MG TAB PO SCH (08:32)
[2019-11-21] MEDS: SPIRONOLACTONE 25 MG TAB PO SCH (08:32)
[2019-11-21] MEDS: ASPIRIN 81 MG PO SCH (08:33)
[2019-11-21] MEDS: NITROGLYCERIN 0.4MG/HR PATCH TRANSDERM SCH (08:41)
[2019-11-21] MEDS ORDERED: LIDOCAINE 1% INJ 10MG/ML (20 ML MDV) SQ ONE (11:46)
[2019-11-21] MEDS ORDERED: MIDAZOLAM 2 MG/2 ML VIAL IV ONE (11:48)
[2019-11-21] MEDS ORDERED: IV FLUID CONTINUATION 1,000 ML IV ONE (11:48)
[2019-11-21] MEDS ORDERED: fentaNYL (PF) 50 MCG/ML 2 ML AMP IV ONE (11:48)
[2019-11-21] MEDS ORDERED: VERAPAMIL SYRINGE (5 MG/10 ML) INTRAARTER ONE (11:49)
[2019-11-21] MEDS ORDERED: IOPAMIDOL-370 125ML BTL INJ ONE (11:58)
[2019-11-21] MEDS ORDERED: RX INFO: IV CONTRAST WAS GIVEN 1 EACH MISC MISCELLANE PRN (12:09)
[2019-11-21] MEDS ORDERED: SODIUM CHLORIDE 0.9% 1,000 ML IV SCH (12:15)
[2019-11-21 12:43] LABS: Glucose,Whole Blood 183 mg/dL (75-99)
[2019-11-21] MEDS: lisinopriL 20 MG TAB PO SCH (12:56)
[2019-11-21] MEDS: INSULIN ASPART (NovoLOG) 100 UNIT/ML VIAL SQ SCH ×3 (13:02→21:36)
[2019-11-21] MEDS: FUROSEMIDE 40 MG TAB PO SCH ×2 (15:40→21:36)
--- NOTE | 2019-11-21 16:33 | CC ---
CARDIAC CATHETERIZATION REPORT Mrs. Franklin is a 38-year-old female with known history of hypertension, hyperlipidemia, diabetes mellitus, history of coronary artery disease and ischemic cardiomyopathy who presented with symptoms progressive dyspnea, peripheral edema. She had minimal troponin elevation. She was evaluated by Dr. Calderon, recommendation made regarding cardiac catheterization. The procedures, risks, and complication were discussed with the patient who is in full understanding and agreement. PROCEDURE: Patient was brought to the minilab operator in a fasting semi-sedated state after receiving fentanyl and Benadryl and achieving moderate conscious sedated state. A 6-Tamazight sheath was introduced in the right radial artery. Selective right and left coronary angiography performed using 5-Tamazight 3.5 bend right and left Romelia' catheter, multiple views of the coronary artery, including hemiaxial views were obtained. Following that, catheter and sheath were removed. Hemostasis was obtained with deployment of a TR band. There was no immediate complication. Patient is returned to her room in stable condition. Of note, the patient received 5000 units of intravenous heparin as well as intra-arterial verapamil. FINDINGS: LEFT MAIN: This is a large-sized vessel, bifurcating into left circumflex, left anterior descending artery. Left main coronary artery has no evidence of high-grade stenosis. LEFT ANTERIOR DESCENDING ARTERY: This is a large-sized vessel reaching toward the apex with a wraparound apex segment, giving rise to 2 diagonal branches. The first one has a 95% stenosis at the takeoff at that segment in the proximal LAD there is about 20% plaque. The stented segments in the mid LAD are patent with no evidence of in-stent restenosis. LEFT CIRCUMFLEX: This is a large nondominant vessel giving rise to 3 obtuse marginal branches. The proximal left circumflex has 20% plaque. The first obtuse marginal branch stented segment is patent has about a 40% to 50% plaque proximally. Following the takeoff of the first obtuse marginal branch, there is a tubular lesion of about 50%. The third obtuse marginal branch origin has a 95% stenosis. It is a jailed branch through the old stented second obtuse marginal branch. The rest of the vessel has no high-grade stenosis. RIGHT CORONARY ARTERY: This is a large dominant vessel, bifurcating into posterolateral PDA and posterolateral segment branches of the right coronary artery. The proximal segment has 5%-10% stenosis. The rest of the vessel has no high-grade stenosis. LEFT VENTRICULOGRAM: Left ventriculogram was not performed. CONCLUSION: 1. Patent stent in the LAD and the left circumflex. 2. Significant stenosis in the third obtuse marginal branch as well as the first diagonal branch, unchanged compared to 2019. RECOMMENDATION: Based on the finding and the absence of any changes, I will continue medical therapy with the aggressive coronary risk modifications being initiated. Those findings and recommendation were discussed with the patient and she is in full understanding and agreement. Duration of procedure is 13 minutes. MMODL / IJN: [id number] /
[2019-11-21 16:40] LABS: Glucose,Whole Blood 290 mg/dL (75-99)
--- NOTE | 2019-11-21 18:13 | PN ---
PROGRESS NOTE DATE OF SERVICE: 11/21/2019 CHIEF COMPLAINT: Congestive heart failure. HISTORY OF PRESENT ILLNESS: This lady is doing well. Breathing is going well. She is going down for cardiac cath today. PHYSICAL EXAMINATION: Chest is clear. There are no rales or rhonchi and there is no wheezing. Cardiac exam is normal. The abdomen is protuberant and soft. IMPRESSION: 1. Acute congestive heart failure. 2. Pulmonary edema. 3. Chronic congestive heart failure. 4. Coronary artery disease. PLAN: Cardiac cath today. MMODL / IJN: [id number] /
[2019-11-21 21:26] LABS: Glucose,Whole Blood 357 mg/dL (75-99)
[2019-11-21] MEDS: APIXABAN 5 MG TAB PO SCH (21:36)
[2019-11-21] MEDS: ATORVASTATIN 80 MG TAB PO SCH (21:36)
[2019-11-21] MEDS: MONTELUKAST 10 MG TAB PO SCH (21:36)
[2019-11-21] MEDS: INSULIN DETEMIR (LEVEMIR) 100 UNIT/ML SYR SQ SCH (21:37)
[2019-11-22 06:22] LABS: Glucose,Whole Blood 246 mg/dL (75-99)
[2019-11-22] MEDS: INSULIN ASPART (NovoLOG) 100 UNIT/ML VIAL SQ SCH ×2 (06:34→12:41)
[2019-11-22] MEDS: carvediloL 12.5 MG TAB PO SCH (06:34)
[2019-11-22] MEDS ORDERED: SPIRONOLACTONE 25 MG TAB PO SCH (09:30)
[2019-11-22] MEDS: CLOPIDOGREL 75 MG TAB PO SCH (10:00)
[2019-11-22] MEDS: APIXABAN 5 MG TAB PO SCH (10:00)
[2019-11-22] MEDS: PANTOPRAZOLE 40 MG TABLET PO SCH (10:00)
[2019-11-22] MEDS: hydrALAZINE HCL 50 MG TAB PO SCH ×2 (10:00→15:16)
[2019-11-22] MEDS: FUROSEMIDE 40 MG TAB PO SCH (10:00)
[2019-11-22] MEDS: NITROGLYCERIN 0.4MG/HR PATCH TRANSDERM SCH (10:00)
[2019-11-22] MEDS: FERROUS SULFATE 325 MG TAB PO SCH (10:00)
[2019-11-22] MEDS: lisinopriL 20 MG TAB PO SCH (10:00)
--- NOTE | 2019-11-22 10:26 | P.PN ---
Subjective Progress Note Date: 11/22/19 HISTORY OF PRESENTING ILLNESS This is a pleasant 38-year-old female past medical history significant for coronary artery disease, myocardial infarction, ischemic cardiomyopathy, diabetes mellitus, hypertension, dyslipidemia, chronic systolic heart failure, mental illness and former nicotine dependence. She follows in the office with Dr. Davila. We have been asked to see in consultation for heart failure. For the previous one week as noticed increased lower extremity edema. She states she has been taking her Lasix as recommended on Mondays and however she is not urinating as frequently as previous. She denies a change in her diet. Over the weekend she started noticing increasing shortness of breath and orthopnea. She denies symptoms of chest discomfort, dizziness or palpitations. On arrival she was initiated on IV Lasix. This morning she states her orthopnea and breathing have improved however she continues to have lower extremity edema. She is resting comfortably laying flat in bed. She states she didn't get much sleep unfortunately due to frequent urination. No documented output. Her most recent echocardiogram revealed improved LV systolic function with ejection fraction 50-55%. However at the same time her cardiac catheterization revealed an ejection fraction of 40% with anterior apical akinesia and questionable apical thrombosis. 11/22/2019 Patient seen and examined. Patient is very tearful as she was told that her cardiomyopathy may be related to stress with stress-induced cardiopathy. Overall however she denies any chest pain, pressure, her breathing is much improved and overall feels fairly good. She did have her heart catheterization performed yesterday which showed mild to moderate disease as well as pinching of an OM branch which appeared similar to prior, no need for intervention. REVIEW OF SYSTEMS At the time of my exam: CONSTITUTIONAL: Denies fever or chills. CARDIOVASCULAR: Denies chest pain, shortness of breath, orthopnea, PND or palpitations. RESPIRATORY: Denies cough. GASTROINTESTINAL: Denies abdominal pain, diarrhea, constipation, nausea or vomiting. MUSCULOSKELETAL: Denies myalgias. NEUROLOGIC: Denies numbness, tingling or weakness. ENDOCRINE: Denies fatigue, weight change, polydipsia or polyurina. GENITOURINARY: Denies burning, hematuria or urgency with micturation. HEMATOLOGIC: Denies history of anemia or bleeding. PHYSICAL EXAMINATION Blood pressure 140/83 heart rate 92 afebrile and maintaining oxygen saturation on room air. CONSTITUTIONAL: No apparent distress, obese HEENT: Head is normocephalic. Pupils are equal, round. Sclerae anicteric. Mucous membranes of the mouth are moist. No JVD. No carotid bruit. CHEST EXAMINATION: Lungs are clear to auscultation. No chest wall tenderness is noted on palpation or with deep breathing. HEART EXAMINATION: Regular rate and rhythm. S1, S2 heard. No murmurs, gallops or rub. ABDOMEN: Soft, nontender. Positive bowel sounds. EXTREMITIES: 2+ peripheral pulses, 2+ bilateral lower extremity pitting edema up to the knee and no calf tenderness. NEUROLOGIC EXAMINATION: Patient is awake, alert and oriented x3. ASSESSMENT Acute on chronic systolic heart failure Troponin leak related to heart failure, cardiac catheterization with [id number] disease and pinching of 1 branch without need for intervention Ischemic cardiomyopathy, however there is a consideration of stress-induced cardiomyopathy. Coronary artery disease, mild to moderate disease on catheterization from 12/18/2019 Diabetes mellitus Hypertension Dyslipidemia Obesity, 38 Left ventricular thrombus PLAN Patient did have a heart catheterization to exclude significant coronary disease causing drop in ejection fraction. There is a consideration that this may be stress-induced cardiomyopathy and patient admits to a lot of stress at home. Psychiatry to evaluate for possible medications. Her blood pressure is still somewhat elevated and we will increase the spironolactone from 25-50 mg. Patient stable for discharge home from a cardiac standpoint. We would continue Eliquis for her left ventricular thrombus although this may be more organizing chronic. Additionally continue Lasix 40 mg by mouth daily home. Objective - Vital Signs Vital signs: Vital Signs Temp 98 F 11/22/19 09:00 Pulse 92 11/22/19 09:00 Resp 20 11/22/19 09:00 BP 140/83 11/22/19 09:00 Pulse Ox 98 11/22/19 09:00 Intake & Output 11/21/19 11/22/19 11/22/19 18:59 06:59 18:59 Intake Total 1163.556 150 Output Total 800 900 800 Balance 926.117 -900 -246 Weight 96.8 kg 97.5 kg Intake: IV 350 Sodium Chloride 0.9% 1, 250 000 ml @ 75 mls/hr IV . [id number] [facility] Rx#:[id number] Intake, IV Titration 213.556 Amount Heparin Sod,Pork in 0.45% 213.556 NaCl 25,000 unit In 0.45 % NaCl 1 250ml.bag @ 10. 34 UNITS/KG/HR 9.999 mls/ hr IV .Q24H [facility] Rx#: [id number] Oral 600 150 Output: Urine 800 900 800 Other: Voiding Method Toilet Toilet # Voids 3 - Labs CBC & Chem 7: 11/19/19 15:14 11/21/19 05:48 Labs: Abnormal Lab Results - Last 24 Hours (Table) 11/21/19 11/21/19 11/21/19 Range/Units 12:38 16:38 21:24 POC Glucose (mg/dL) 183 H 290 H 357 H (75-99) mg/dL 11/22/19 Range/Units 06:19 POC Glucose (mg/dL) 246 H (75-99) mg/dL
[2019-11-22 12:21] LABS: Glucose,Whole Blood 201 mg/dL (75-99)
[2019-11-22 15:16] VITALS: BP 141/84; PULSE 96; RESP 16; TEMP 97.7
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
--- NOTE | 2019-11-22 20:55 | DS ---
DISCHARGE SUMMARY CHIEF COMPLAINT: Shortness of breath. HISTORY OF PRESENT ILLNESS AND PHYSICAL EXAMINATION: Details of this lady's history and physical can be found in the initial workup. LABORATORY STUDIES: While she was in the hospital she had laboratory studies, details of which can be found in the laboratory section of her chart. COURSE IN THE HOSPITAL: After admission she was placed on bedrest and started on intravenous fluids and she was diuresed. She was seen by Cardiology and she was taken to the laborer stores. She had no new significant coronary artery blockages. While she was in the hospital she became somewhat anxious and depressed and requested to see a psychiatrist. This was arranged, but she was cleared by Psychiatry after she was placed on the antidepressant, and she will go home and be followed up in several days in the office. FINAL DIAGNOSES: 1. Acute congestive heart failure. 2. Chronic systolic and diastolic congestive heart failure. 3. Depression. 4. Insulin-dependent diabetes mellitus. OPERATIONS: Cardiac catheterization. CONSULTATIONS: 1. Cardiology. 2. Psychiatry. She is improved. URBANO / SHERIFN: [id number] /
[2019-11-22] MEDS ORDERED: traZODone HCL 50 MG TAB PO SCH (21:00)
[2019-11-23] MEDS ORDERED: SERTRALINE 50 MG TAB PO SCH (09:00)
[2019-11-24] MEDS ORDERED: SEMAGLUTIDE 0.5 MG SQ SCH (09:00)
== END 2019-11-22 16:26 | disposition home or self-care (01) ==
LOC: EC 14:14 → 3NCARDOBS 18:49 → INTOOBSV 11-21 10:35 → OBSVTOIN 11-21 10:35 → UNDODISIN 11-22 16:26
PROVIDERS: ADMIT Family Medicine; ATTEND Family Medicine
DX: I11.0 Hypertensive heart disease with heart failure (principal); I50.43 Acute on chronic combined systolic (congestive) and diastolic (congestive) heart failure; I25.10 Atherosclerotic heart disease of native coronary artery without angina pectoris; I77.89 Other specified disorders of arteries and arterioles; I25.5 Ischemic cardiomyopathy; I51.3 Intracardiac thrombosis, not elsewhere classified; R94.31 Abnormal electrocardiogram [ECG] [EKG]; F31.9 Bipolar disorder, unspecified; F43.11 Post-traumatic stress disorder, acute; F41.9 Anxiety disorder, unspecified; E11.9 Type 2 diabetes mellitus without complications; I48.91 Unspecified atrial fibrillation; E78.5 Hyperlipidemia, unspecified; J45.909 Unspecified asthma, uncomplicated; K21.9 Gastro-esophageal reflux disease without esophagitis; F20.9 Schizophrenia, unspecified; E66.9 Obesity, unspecified; T42.4X6A Underdosing of benzodiazepines, initial encounter; T50.996A Underdosing of other drugs, medicaments and biological substances, initial encounter; I25.2 Old myocardial infarction; Z79.899 Other long term (current) drug therapy; Z79.4 Long term (current) use of insulin; Z88.1 Allergy status to other antibiotic agents; Z88.5 Allergy status to narcotic agent; Z91.048 Other nonmedicinal substance allergy status; Z88.0 Allergy status to penicillin; Z86.711 Personal history of pulmonary embolism; Z87.11 Personal history of peptic ulcer disease; Z87.19 Personal history of other diseases of the digestive system; Z87.442 Personal history of urinary calculi; Z85.6 Personal history of leukemia; Z98.890 Other specified postprocedural states; Z95.5 Presence of coronary angioplasty implant and graft; Z96.651 Presence of right artificial knee joint; Z90.89 Acquired absence of other organs; Z98.51 Tubal ligation status; Z87.891 Personal history of nicotine dependence; Z91.128 Patient's intentional underdosing of medication regimen for other reason; Z91.410 Personal history of adult physical and sexual abuse; Z91.411 Personal history of adult psychological abuse; Z68.39 Body mass index [BMI] 39.0-39.9, adult; Z79.82 Long term (current) use of aspirin; Z79.02 Long term (current) use of antithrombotics/antiplatelets; Z83.438 Family history of other disorder of lipoprotein metabolism and other lipidemia; Z82.49 Family history of ischemic heart disease and other diseases of the circulatory system; Z82.69 Family history of other diseases of the musculoskeletal system and connective tissue; Z81.8 Family history of other mental and behavioral disorders; Z81.3 Family history of other psychoactive substance abuse and dependence
CPT/HCPCS: 96365; 96366 ×3; 96376 ×2; 96374; 96375; 99285; 36415; 93005; 93454; 83880; 80061; 80053; 80048; 83735; 84484; 85025; 85610 ×3; 85730 ×3; 71046; 93970; G0378 ×4; C8929; C1769; C1894; J2250; J1644 ×4; J1940 ×3; J2930; J2001; J3010; Q9950; Q9967; 93306

== ENCOUNTER 2020-06-16 15:50 | Observation (INO) | payer MEDICARE, OTHER ==
[2020-06-16] MEDS ORDERED: NITROGLYCERIN OINT 1 INCH/GM PACKET TOPICAL STA (17:43)
[2020-06-16] MEDS ORDERED: ASPIRIN 81 MG PO STA (17:43)
--- NOTE | 2020-06-16 17:51 | ED ---
General Adult HPI - General Chief complaint: Chest Pain Stated complaint: Sob/Poss Chest pain Time Seen by Provider: 06/16/20 17:27 Source: patient, RN notes reviewed Mode of arrival: ambulatory Limitations: no limitations - History of Present Illness Initial comments: Patient is a pleasant 39-year-old female presenting to the emergency Department with complaints of chest discomfort. Patient has been coughing over the past several days. Patient states it makes her chest hurt however she is having discomfort otherwise as well. Chest discomfort feels somewhat like similar previous heart problems. Patient does have associated shortness of breath. No fevers. No nausea vomiting or diarrhea. No loss of taste or smell. No congestion. Patient does have history of previous pulmonary embolism however is on Eliquis. Patient has been taking her Eliquis as prescribed without missing doses. - Related Data Home Medications Medication Instructions Recorded Confirmed Ferrous Sulfate [Iron] 325 mg PO DAILY 07/11/18 06/16/20 carvediloL [Carvedilol] 25 mg PO BID 07/11/18 06/16/20 Pantoprazole [Protonix] 40 mg PO BID 04/27/19 06/16/20 Semaglutide [Ozempic] 0.5 mg SQ MO 11/19/19 06/16/20 ALPRAZolam [Xanax] 0.5 mg PO DAILY PRN 06/16/20 06/16/20 Albuterol Sulfate [Ventolin HFA] 2 puff INHALATION RT-Q4H PRN 06/16/20 06/16/20 Insulin Glargine,Hum.rec.anlog 40 unit SQ HS 06/16/20 06/16/20 [Basaglar Kwikpen U-100] hydrALAZINE HCL [Apresoline] 100 mg PO DAILY 06/16/20 06/16/20 Previous Rx's Medication Instructions Recorded Atorvastatin [Lipitor] 80 mg PO HS #30 tab 12/06/18 Clopidogrel [Plavix] 75 mg PO DAILY #30 tab 12/06/18 Nitroglycerin Sl Tabs [Nitrostat] 0.4 mg SUBLINGUAL Q5M PRN #25 tab 12/06/18 Spironolactone [Aldactone] 25 mg PO DAILY #30 tab 12/06/18 Apixaban [Eliquis] 5 mg PO BID #180 tab 11/21/19 Furosemide [Lasix] 40 mg PO BID #60 tab 11/22/19 Sertraline [Zoloft] 50 mg PO DAILY #30 tab 11/22/19 lisinopriL [Zestril] 20 mg PO DAILY #30 tab 11/22/19 traZODone HCL [Desyrel] 50 mg PO HS #10 tab 11/22/19 Allergies Allergy/AdvReac Type Severity Reaction Status Date / Time cephalexin [From Keflex] Allergy Rash/Hives Verified 06/16/20 18:38 codeine Allergy Rash/Hives Verified 06/16/20 18:38 Iodine and Iodide Containing Allergy Rash/Hives Verified 06/16/20 18:38 Produc Penicillins Allergy Rash/Hives Verified 06/16/20 18:38 tramadol Allergy Rash/Hives Verified 06/16/20 18:38 Review of Systems ROS Statement: Those systems with pertinent positive or pertinent negative responses have been documented in the HPI. ROS Other: All systems not noted in ROS Statement are negative. Constitutional: Denies: fever Eyes: Denies: eye pain ENT: Denies: ear pain Respiratory: Reports: cough, dyspnea Cardiovascular: Reports: chest pain Endocrine: Denies: fatigue Gastrointestinal: Denies: abdominal pain Genitourinary: Denies: dysuria Musculoskeletal: Denies: back pain Skin: Denies: rash Neurological: Denies: weakness Past Medical History Past Medical History: Atrial Fibrillation, Asthma, Coronary Artery Disease (CAD), Diabetes Mellitus, GERD/Reflux, Hyperlipidemia, Hypertension, Myocardial Infarction (MT), Pulmonary Embolus (PE) Additional Past Medical History / Comment(s): peptic ulcer, gall stones, kidney stone, childhood leukemia Last Myocardial Infarction Date:: 05/01/2019 History of Any Multi-Drug Resistant Organisms: None Reported Past Surgical History: Section, Heart Catheterization With Stent, Joint Replacement, Tonsillectomy, Tubal Ligation Additional Past Surgical History / Comment(s): 4 stents, partial right knee replacement Past Anesthesia/Blood Transfusion Reactions: No Reported Reaction Date of Last Stent Placement:: 08/02/18 Past Psychological History: Anxiety, Bipolar, Depression, Schizophrenia Smoking Status: Former smoker Past Alcohol Use History: None Reported Past Drug Use History: None Reported - Past Family History Father Family Medical History: Hyperlipidemia, Hypertension Additional Family Medical History / Comment(s): pins in knee, heart stents x 4 General Exam Limitations: no limitations General appearance: alert, in no apparent distress Head exam: Present: atraumatic Eye exam: Present: normal appearance Respiratory exam: Present: normal lung sounds bilaterally. Absent: chest wall tenderness Cardiovascular Exam: Present: regular rate, normal rhythm, normal heart sounds Expanded Peripheral pulses: 2+: Radial (R), Radial (L), Dorsalis Pedis (R), Dorsalis Pedis (L) GI/Abdominal exam: Present: soft. Absent: tenderness Extremities exam: Present: normal inspection. Absent: pedal edema, calf tenderness Neurological exam: Present: alert Psychiatric exam: Present: normal affect, normal mood Skin exam: Present: normal color Course Vital Signs 06/16/20 06/16/20 16:03 19:52 Temperature 98.7 F 98.6 F Pulse Rate 94 86 Respiratory 20 18 Rate Blood Pressure 151/83 149/89 O2 Sat by Pulse 97 96 Oximetry EKG Findings - EKG Comments: EKG Findings:: Normal sinus rhythm at 92. OK 124. QRS 90. QT 376. QTc 464. Normal axis. Normal QRS. No acute ST change. Medical Decision Making - Medical Decision Making Patient reevaluated and resting comfortably in bed. Patient does have cold and does meet criteria for monoclonal antibody infusion. Patient also has chest discomfort similar to previous cardiac events. Patient will be kept for observation for repeat cardiac testing. Case was discussed in detail with Dr. Sena, who agrees and will admit his patient. He does request cardiology consult. - Lab Data Result diagrams: 06/16/20 18:07 06/16/20 18:07 Lab Results 06/16/20 06/16/20 06/16/20 Range/Units 16:08 18:07 18:07 WBC 2.3 L (3.8-10.6) k/uL RBC 5.21 (3.80-5.40) m/uL Hgb 14.0 (11.4-16.0) gm/dL Hct 43.0 (34.0-46.0) % MCV 82.4 (80.0-100.0) fL MCH 26.8 (25.0-35.0) pg MCHC 32.5 (31.0-37.0) g/dL RDW 15.6 H (11.5-15.5) % Plt Count 192 (150-450) k/uL MPV 7.7 Neutrophils % 67 % Lymphocytes % 21 % Monocytes % 9 % Eosinophils % 0 % Basophils % 1 % Neutrophils # 1.5 (1.3-7.7) k/uL Lymphocytes # 0.5 L (1.0-4.8) k/uL Monocytes # 0.2 (0-1.0) k/uL Eosinophils # 0.0 (0-0.7) k/uL Basophils # 0.0 (0-0.2) k/uL PT 10.3 (9.0-12.0) sec INR 1.0 (<1.2) APTT 24.6 (22.0-30.0) sec Sodium (137-145) mmol/L Potassium (3.5-5.1) mmol/L Chloride (98-107) mmol/L Carbon Dioxide (22-30) mmol/L Anion Gap mmol/L BUN (7-17) mg/dL Creatinine (0.52-1.04) mg/dL Est GFR (CKD-EPI)AfAm (>60 ml/min/1.73 sqM) Est GFR (CKD-EPI)NonAf (>60 ml/min/1.73 sqM) Glucose (74-99) mg/dL Calcium (8.4-10.2) mg/dL Magnesium (1.6-2.3) mg/dL Total Bilirubin (0.2-1.3) mg/dL AST (14-36) U/L ALT (4-34) U/L Alkaline Phosphatase (38-126) U/L Troponin I (0.000-0.034) ng/mL NT-Pro-B Natriuret Pep pg/mL Total Protein (6.3-8.2) g/dL Albumin (3.5-5.0) g/dL Coronavirus (PCR) Detected A (Not Detectd) 06/16/20 06/16/20 06/16/20 Range/Units 18:07 18:07 18:07 WBC (3.8-10.6) k/uL RBC (3.80-5.40) m/uL Hgb (11.4-16.0) gm/dL Hct (34.0-46.0) % MCV (80.0-100.0) fL MCH (25.0-35.0) pg MCHC (31.0-37.0) g/dL RDW (11.5-15.5) % Plt Count (150-450) k/uL MPV Neutrophils % % Lymphocytes % % Monocytes % % Eosinophils % % Basophils % % Neutrophils # (1.3-7.7) k/uL Lymphocytes # (1.0-4.8) k/uL Monocytes # (0-1.0) k/uL Eosinophils # (0-0.7) k/uL Basophils # (0-0.2) k/uL PT (9.0-12.0) sec INR (<1.2) APTT (22.0-30.0) sec Sodium 137 (137-145) mmol/L Potassium 4.4 (3.5-5.1) mmol/L Chloride 100 (98-107) mmol/L Carbon Dioxide 26 (22-30) mmol/L Anion Gap 11 mmol/L BUN 23 H (7-17) mg/dL Creatinine 1.20 H (0.52-1.04) mg/dL Est GFR (CKD-EPI)AfAm 66 (>60 ml/min/1.73 sqM) Est GFR (CKD-EPI)NonAf 57 (>60 ml/min/1.73 sqM) Glucose 129 H (74-99) mg/dL Calcium 9.4 (8.4-10.2) mg/dL Magnesium 2.1 (1.6-2.3) mg/dL Total Bilirubin 0.8 (0.2-1.3) mg/dL AST 30 (14-36) U/L ALT 24 (4-34) U/L Alkaline Phosphatase 60 (38-126) U/L Troponin I 0.017 (0.000-0.034) ng/mL NT-Pro-B Natriuret Pep 159 pg/mL Total Protein 7.4 (6.3-8.2) g/dL Albumin 4.3 (3.5-5.0) g/dL Coronavirus (PCR) (Not Detectd) - Radiology Data Radiology results: image reviewed (Chest x-ray shows left-sided hazy opacity) Disposition Clinical Impression: COVID-19, Chest pain Disposition: ADMITTED IP TO THIS HOSP Is patient prescribed a controlled substance at d/c from ED?: No Referrals: Odell Sena MD [Primary Care Provider] - 1-2 days Decision Time: 20:00
[2020-06-16 18:21] LABS: Basophils % (A) 1 %; Eosinophils % (A) 0 %; Lymphocytes # (A) 0.5 k/uL (1.0-4.8); Lymphocytes % (A) 21 %; MCH 26.8 pg (25.0-35.0); MCHC 32.5 g/dL (31.0-37.0); MCV 82.4 fL (80.0-100.0); Mean Platelet Volume 7.7; Monocytes # (A) 0.2 k/uL (0-1.0); Monocytes % (A) 9 %; Neutrophils # (A) 1.5 k/uL (1.3-7.7); Neutrophils % (A) 67 %; Platelet Count 192 k/uL (150-450); RBC 5.21 m/uL (3.80-5.40); RDW 15.6 % (11.5-15.5); WBC 2.3 k/uL (3.8-10.6)
[2020-06-16 18:30] LABS: Partial Thromboplastin Time 24.6 sec (22.0-30.0); Prothrombin Time 10.3 sec (9.0-12.0)
[2020-06-16 18:31] LABS: Albumin 4.3 g/dL (3.5-5.0); Calcium 9.4 mg/dL (8.4-10.2); Magnesium 2.1 mg/dL (1.6-2.3); Potassium 4.4 mmol/L (3.5-5.1); Total Bilirubin 0.8 mg/dL (0.2-1.3); Total Protein 7.4 g/dL (6.3-8.2)
--- NOTE | 2020-06-16 18:50 | XR ---
EXAMINATION TYPE: XR chest 2V DATE OF EXAM: 06/16/2020 COMPARISON: 11/19/2019 HISTORY: Cough and congestion TECHNIQUE: 2 views FINDINGS: Heart is enlarged. There is some pulmonary interstitial and airspace edema on the left side . Right lung is relatively clear. There is no pleural effusion. There is no obvious heart failure. Th ere are chest leads. IMPRESSION: There is left side pulmonary edema that could relate to acute pneumonia which is a change compared to old exam.
[2020-06-16] MEDS ORDERED: NITROGLYCERIN SL TABS 0.4 MG TAB SUBLINGUAL PRN (20:00)
[2020-06-16] MEDS ORDERED: BAMLANIVIMAB (EUA) 700 MG, ETESEVIMAB (EUA) 1,400 MG in SODIUM CHLORIDE 0.9% 50 ML IVPB ONE (21:00)
[2020-06-16] MEDS: ZINC SULFATE 220 MG CAP PO SCH (21:34)
[2020-06-16] MEDS: CHOLECALCIFEROL 25 MCG (1000 IU) TABLET PO SCH (21:34)
[2020-06-16] MEDS: ASCORBIC ACID 500 MG TAB PO SCH (21:34)
[2020-06-16] MEDS ORDERED: ALPRAZolam 0.5 MG TAB PO PRN (23:37)
[2020-06-17] MEDS: traZODone HCL 50 MG TAB PO SCH ×2 (00:13→20:50)
[2020-06-17] MEDS: HYDROcodone/APAP 5-325MG 1 EACH TAB PO PRN ×2 (00:13→09:13)
[2020-06-17] MEDS: NITROGLYCERIN OINT 1 INCH/GM PACKET TOPICAL SCH ×4 (00:14→17:53)
[2020-06-17 05:35] LABS: Cholesterol 119 mg/dL (<200); HDL Cholesterol 19 mg/dL (40-60); LDL Cholesterol,Calculated 75 mg/dL (0-99); Triglycerides 125 mg/dL (<150)
[2020-06-17] MEDS: ALBUTEROL HFA INHALER INHALATION PRN ×2 (08:24→21:19)
[2020-06-17 08:31] LABS: Glucose,Whole Blood 127 mg/dL (75-99)
[2020-06-17] MEDS ORDERED: ASPIRIN 325 MG TAB PO SCH (09:00)
[2020-06-17] MEDS: CHOLECALCIFEROL 25 MCG (1000 IU) TABLET PO SCH (09:04)
[2020-06-17] MEDS: SERTRALINE 50 MG TAB PO SCH (09:04)
[2020-06-17] MEDS: hydrALAZINE HCL 50 MG TAB PO SCH (09:04)
[2020-06-17] MEDS: lisinopriL 20 MG TAB PO SCH (09:05)
[2020-06-17] MEDS: SPIRONOLACTONE 25 MG TAB PO SCH (09:05)
[2020-06-17] MEDS: FUROSEMIDE 40 MG TAB PO SCH ×2 (09:05→20:50)
[2020-06-17] MEDS: ZINC SULFATE 220 MG CAP PO SCH (09:05)
[2020-06-17] MEDS: carvediloL 12.5 MG TAB PO SCH ×2 (09:05→17:53)
[2020-06-17] MEDS: CLOPIDOGREL 75 MG TAB PO SCH (09:05)
[2020-06-17] MEDS: APIXABAN 5 MG TAB PO SCH ×2 (09:05→20:50)
[2020-06-17] MEDS: ASCORBIC ACID 500 MG TAB PO SCH ×2 (09:05→20:50)
[2020-06-17] MEDS: PANTOPRAZOLE 40 MG TABLET PO SCH ×2 (09:05→20:49)
[2020-06-17] MEDS: FERROUS SULFATE 325 MG TAB PO SCH (09:05)
--- NOTE | 2020-06-17 11:50 | P.CRDCN ---
History of Present Illness History of present illness: HISTORY OF PRESENTING ILLNESS This is a pleasant 39-year-old female past medical history significant for coronary artery disease s/p stenting of mid LAD in April 2019, myocardial infarction, type 2 diabetes mellitus, hypertension, dyslipidemia, chronic systolic heart failure, mental illness and former nicotine dependence. She follows in the office with Dr. Davila. We have been asked to see in consultation for chest pain. Patient states for the past 5 days shes been having cold like symptoms and shortness of breath. Yesterday morning, she had left sided chest pain that lasted 10 minutes, it was sharp, localized. Non-radiating. Non-exertional. She took an aspirin at home and decided to come to the emergency department. She denies nausea, diaphoresis, increased shortness of breath, lightheadedness, or dizziness. On admission, patient found to be COVID-19 positive. In november 2019, patient was admitted with worsening shortness of breath and lower extremity edema. She had mildly elevated troponins. Elevated BNP at 1830 echocardiogram revealed LV function at 3545 percent with grade 3 diastolic dysfunction with takotsubo-like cardiomyopathy. Patient underwent cardiac catheterization to rule out progression of coronary artery disease which revealed patent stent in LAD and left circumflex, and chronic total occlusion in her obtuse marginal branch. She was to continue maximal medical treatment for cardiomyopathy. In addition, on her echocardiogram and LV thrombus was seen in the apex of the heart and patient was started on Eliquis. Patient seen and examined at bedside, in no acute distress. Chest pain has resolved. Continues to have shortness of breath and cough. Laboratory reviewed, troponin negative 3, BNP 159, sodium 137, potassium 4.4, serum creatinine 1.20 (baseline 0.8-0.9), BUN 23, magnesium 2.1, triglycerides 125, cholesterol 119, LDL 75, HDL 19, WBC 2.3, hemoglobin 14, platelets 192. INR 1.0. Current cardiac medications include lisinopril 20 mg daily, atorvastatin 80 mg nightly, hydralazine 100 mg daily, Lasix 40 mg twice a day, Eliquis 5 mg twice a day, carvedilol 25 mg twice a day, Plavix 75 mg daily. DIAGNOSTICS EKG reveals sinus tachycardia no significant ST-T wave abnormalities Chest xray left sided pulmonary edema likely related to acute pneumonia Cardiac catheterization 11/2019patent stent in the LAD and the left circumflex. Significant stenosis in the third obtuse marginal branch as well as the first diagonal branch, unchanged compared to 2019. Echocardiogram 11/2019LV function at 3545% with grade 3 diastolic dysfunction Takotsubo-like cardiomyopathy. Severely dilated LA, mild to moderate MR, moderate pulmonary hypertension. LV Thrombus seen in the apex of the heart Echocardiogram 05/2019left ventricular systolic function 5055%, diastolic function indicates grade 2 diastolic dysfunction, LA is moderately dilated, mild MR, mild TR REVIEW OF SYSTEMS At the time of my exam: CONSTITUTIONAL: + fever or chills. CARDIOVASCULAR: +chest pain, +shortness of breath Denies orthopnea, PND or palpitations. RESPIRATORY:+cough. GASTROINTESTINAL: Denies abdominal pain, diarrhea, constipation, nausea or vom iting. MUSCULOSKELETAL: Denies myalgias. NEUROLOGIC: Denies numbness, tingling or weakness. ENDOCRINE: +fatigue, Denies weight change, polydipsia or polyurina. GENITOURINARY: Denies burning, hematuria or urgency with micturation. HEMATOLOGIC: Denies history of anemia or bleeding. PHYSICAL EXAMINATION Thorough physical examination not completed due to COVID-19 Blood pressure 153/92 heart rate 97 afebrile and maintaining oxygen saturation on room air. CONSTITUTIONAL: No apparent distress. HEENT: Head is normocephalic. Mucous membranes of the mouth are moist. No JVD. No carotid bruit. CHEST EXAMINATION: No chest wall tenderness is noted on palpation or with deep breathing. ABDOMEN: Soft, nontender. Positive bowel sounds. EXTREMITIES: no lower extremity edema NEUROLOGIC EXAMINATION: Patient is awake, alert and oriented x3. ASSESSMENT Chest pain, atypical, acute coronary syndrome ruled out Covid-19 pneumonia Acute Kidney Injury Chronic systolic heart failure, stress-induced cardiomyopathy Coronary artery disease status post PCI in the setting of a myocardial infarction LV Thrombus- on Eliquis Type 2 Diabetes mellitus Hypertension Dyslipidemia Obesity, BMI 39 PLAN An acute coronary event has been ruled out with no EKG evidence of ischemia and negative cardiac enzymes Obtain 2D echocardiogram and doppler study to assess cardiac structure and function Continue home cardiac medications Nurse Practitioner note has been reviewed, I agree with a documented findings and plan of care. Patient was seen and examined. Past Medical History Past Medical History: Atrial Fibrillation, Asthma, Coronary Artery Disease (CAD), Diabetes Mellitus, GERD/Reflux, Hyperlipidemia, Hypertension, Myocardial Infarction ([place]), Pulmonary Embolus (PE) Additional Past Medical History / Comment(s): peptic ulcer, gall stones, kidney stone, childhood leukemia Last Myocardial Infarction Date:: 05/01/2019 History of Any Multi-Drug Resistant Organisms: None Reported Past Surgical History: Section, Heart Catheterization With Stent, Joint Replacement, Tonsillectomy, Tubal Ligation Additional Past Surgical History / Comment(s): 4 stents, partial right knee replacement Past Anesthesia/Blood Transfusion Reactions: No Reported Reaction Date of Last Stent Placement:: 08/02/18 Past Psychological History: Anxiety, Bipolar, Depression, Schizophrenia Smoking Status: Never smoker Past Alcohol Use History: None Reported Past Drug Use History: None Reported - Past Family History Father Family Medical History: Hyperlipidemia, Hypertension Additional Family Medical History / Comment(s): pins in knee, heart stents x 4 Medications and Allergies Home Medications Medication Instructions Recorded Confirmed Type Ferrous Sulfate [Iron] 325 mg PO DAILY 07/11/18 06/16/20 History carvediloL [Carvedilol] 25 mg PO BID 07/11/18 06/16/20 History Atorvastatin [Lipitor] 80 mg PO HS #30 tab 12/06/18 06/16/20 Rx Clopidogrel [Plavix] 75 mg PO DAILY #30 tab 12/06/18 06/16/20 Rx Nitroglycerin Sl Tabs [Nitrostat] 0.4 mg SUBLINGUAL Q5M PRN #25 tab 12/06/18 06/16/20 Rx Spironolactone [Aldactone] 25 mg PO DAILY #30 tab 12/06/18 06/16/20 Rx Pantoprazole [Protonix] 40 mg PO BID 04/27/19 06/16/20 History Semaglutide [Ozempic] 0.5 mg SQ MO 11/19/19 06/16/20 History Apixaban [Eliquis] 5 mg PO BID #180 tab 11/21/19 06/16/20 Rx Furosemide [Lasix] 40 mg PO BID #60 tab 11/22/19 06/16/20 Rx Sertraline [Zoloft] 50 mg PO DAILY #30 tab 11/22/19 06/16/20 Rx lisinopriL [Zestril] 20 mg PO DAILY #30 tab 11/22/19 06/16/20 Rx traZODone HCL [Desyrel] 50 mg PO HS #10 tab 11/22/19 06/16/20 Rx ALPRAZolam [Xanax] 0.5 mg PO DAILY PRN 06/16/20 06/16/20 History Albuterol Sulfate [Ventolin HFA] 2 puff INHALATION RT-Q4H PRN 06/16/20 06/16/20 History Insulin Glargine,Hum.rec.anlog 40 unit SQ HS 06/16/20 06/16/20 History [Basaglar Kwikpen U-100] hydrALAZINE HCL [Apresoline] 100 mg PO DAILY 06/16/20 06/16/20 History Allergies Allergy/AdvReac Type Severity Reaction Status Date / Time cephalexin [From Keflex] Allergy Rash/Hives Verified 06/16/20 18:38 codeine Allergy Rash/Hives Verified 06/16/20 18:38 Iodine and Iodide Containing Allergy Rash/Hives Verified 06/16/20 18:38 Produc Penicillins Allergy Rash/Hives Verified 06/16/20 18:38 tramadol Allergy Rash/Hives Verified 06/16/20 18:38 Physical Exam Vitals: Vital Signs Temp Pulse Pulse Resp BP BP Pulse Ox 06/17/20 03:27 99.8 F H 97 16 153/92 94 L 06/17/20 00:27 94 20 06/16/20 21:38 99.4 F 94 16 95 06/16/20 19:52 98.6 F 86 18 149/89 96 06/16/20 16:03 98.7 F 94 20 151/83 97 Intake and Output 06/16/20 06/17/20 06/17/20 22:59 06:59 14:59 Intake Total 250 Balance 250 Intake: Oral 250 Other: Voiding Method Toilet # Voids 2 3 Weight 97.522 kg Results 06/16/20 18:07 06/16/20 18:07 Cardiac Enzymes 06/16/20 06/16/20 06/16/20 Range/Units 18:07 18:07 21:23 AST 30 (14-36) U/L Troponin I 0.017 0.024 (0.000-0.034) ng/mL 06/17/20 Range/Units 00:29 AST (14-36) U/L Troponin I 0.019 (0.000-0.034) ng/mL Coagulation 06/16/20 Range/Units 18:07 PT 10.3 (9.0-12.0) sec APTT 24.6 (22.0-30.0) sec Lipids 06/17/20 Range/Units 00:29 Triglycerides 125 (<150) mg/dL Cholesterol 119 (<200) mg/dL HDL Cholesterol 19 L (40-60) mg/dL CBC 06/16/20 Range/Units 18:07 WBC 2.3 L (3.8-10.6) k/uL RBC 5.21 (3.80-5.40) m/uL Hgb 14.0 (11.4-16.0) gm/dL Hct 43.0 (34.0-46.0) % Plt Count 192 (150-450) k/uL Comprehensive Metabolic Panel 06/16/20 Range/Units 18:07 Sodium 137 (137-145) mmol/L Potassium 4.4 (3.5-5.1) mmol/L Chloride 100 (98-107) mmol/L Carbon Dioxide 26 (22-30) mmol/L BUN 23 H (7-17) mg/dL Creatinine 1.20 H (0.52-1.04) mg/dL Glucose 129 H (74-99) mg/dL Calcium 9.4 (8.4-10.2) mg/dL AST 30 (14-36) U/L ALT 24 (4-34) U/L Alkaline Phosphatase 60 (38-126) U/L Total Protein 7.4 (6.3-8.2) g/dL Albumin 4.3 (3.5-5.0) g/dL Current Medications Generic Name Dose Route Start Last Admin Trade Name Freq PRN Reason Stop Dose Admin Hydrocodone Bitart/Acetaminophen 1 each 06/16/20 23:51 06/17/20 00:13 Hydrocodone/Apap 5-325mg 1 Each Tab PO 1 each Q8HR PRN Administration Pain Albuterol Sulfate 2 puff 06/16/20 23:37 Albuterol Hfa Inhaler INHALATION RT-Q4H PRN Shortness Of Breath Alprazolam 0.5 mg 06/16/20 23:37 Alprazolam 0.5 Mg Tab PO DAILY PRN Moderate Anxiety Apixaban 5 mg 06/17/20 09:00 Apixaban 5 Mg Tab PO BID [facility] Ascorbic Acid 500 mg 06/16/20 21:00 06/16/20 21:34 Ascorbic Acid 500 Mg Tab PO 500 mg BID [facility] Administration Aspirin 325 mg 06/17/20 09:00 Aspirin 325 Mg Tab PO DAILY [facility] Atorvastatin Calcium 80 mg 06/17/20 21:00 Atorvastatin 80 Mg Tab PO HS [facility] Carvedilol 25 mg 06/17/20 07:30 Carvedilol 12.5 Mg Tab PO BID-W/MEALS [facility] Cholecalciferol 125 mcg 06/16/20 20:15 06/16/20 21:34 Cholecalciferol 25 Mcg (1000 Iu) Tablet PO 125 mcg DAILY [facility] Administration Clopidogrel Bisulfate 75 mg 06/17/20 09:00 Clopidogrel 75 Mg Tab PO DAILY [facility] Ferrous Sulfate 325 mg 06/17/20 09:00 Ferrous Sulfate 325 Mg Tab PO DAILY [facility] Furosemide 40 mg 06/17/20 09:00 Furosemide 40 Mg Tab PO BID [facility] Hydralazine HCl 100 mg 06/17/20 09:00 Hydralazine Hcl 50 Mg Tab PO DAILY [facility] Insulin Detemir 40 unit 06/17/20 21:00 Insulin Detemir (Levemir) 100 Unit/Ml Syr SQ HS [facility] Lisinopril 20 mg 06/17/20 09:00 Lisinopril 20 Mg Tab PO DAILY [facility] Nitroglycerin 0.4 mg 06/16/20 20:00 Nitroglycerin Sl Tabs 0.4 Mg Tab SUBLINGUAL Q5M PRN Chest Pain Nitroglycerin 1 inch 06/17/20 00:00 06/17/20 05:40 Nitroglycerin Oint 1 Inch/Gm Packet TOPICAL 1 inch Q6HR [facility] Administration Non-Formulary Medication 0.5 mg 06/22/20 09:00 Semaglutide [Ozempic] SQ MO [facility] Pantoprazole Sodium 40 mg 06/17/20 09:00 Pantoprazole 40 Mg Tablet PO BID [facility] Sertraline HCl 50 mg 06/17/20 09:00 Sertraline 50 Mg Tab PO DAILY [facility] Sodium Chloride 10 ml 06/16/20 21:00 06/16/20 21:34 Sodium Chloride 0.9% Flush 10 Ml Syringe IV 10 ml BID [facility] Administration Spironolactone 25 mg 06/17/20 09:00 Spironolactone 25 Mg Tab PO DAILY [facility] Trazodone HCl 50 mg 06/17/20 00:00 06/17/20 00:13 Trazodone Hcl 50 Mg Tab PO 50 mg HS [facility] Administration Zinc Sulfate 220 mg 06/16/20 20:15 06/16/20 21:34 Zinc Sulfate 220 Mg Cap PO 220 mg DAILY [facility] Administration Intake and Output 06/16/20 06/17/20 06/17/20 22:59 06:59 14:59 Intake Total 250 Balance 250 Intake: Oral 250 Other: Voiding Method Toilet # Voids 2 3 Weight 97.522 kg 06/16/20 18:07 06/16/20 18:07
[2020-06-17 12:07] LABS: Glucose,Whole Blood 173 mg/dL (75-99)
[2020-06-17] MEDS ORDERED: guaiFENesin SYRUP 100MG/5ML 200 MG/10 ML CUP PO PRN (12:25)
[2020-06-17] MEDS ORDERED: ONDANSETRON 4 MG/2 ML VIAL IVP PRN (13:23)
[2020-06-17 17:10] LABS: Glucose,Whole Blood 190 mg/dL (75-99)
--- NOTE | 2020-06-17 18:36 | HP ---
HISTORY AND PHYSICAL CHIEF COMPLAINT: Fever, chills, cough, and shortness of breath. HISTORY OF PRESENT ILLNESS: This is another admission for this 39-year-old lady who has an extensive history of severe hypertension, coronary artery disease and diabetes. She started to develop a fever, malaise and achiness with shortness of breath and came to the emergency room and was diagnosed as having Covid. She is admitted. REVIEW OF SYSTEMS: She denies any neurologic problems, headaches, hemoptysis, chest pain, orthopnea, etc. She did experience some chest pain. She was actually in hospital being swabbed for Covid when she developed chest pain, went to the emergency room. She has had no nausea, vomiting, melena, hematochezia, dysuria, frequency, urgency, etc. Past medical history, family history and personal and social histories are otherwise unchanged. CURRENT MEDICATION: Includes trazodone, hydralazine 100 mg once a day, Lantus 40 units at night, furosemide 40 mg twice a day, albuterol updrafts q.i.d. and p.r.n., Xanax 0.5 once a day p.r.n., potassium 20 mEq once a day, Zoloft 50 mg once a day, Eliquis 5 mg twice a day, spironolactone 25 twice a day, Nitro-Dur patch once a day, pantoprazole 40 mg once a day, Montelukast 10 mg once a day, iron 325 once a day, carvedilol 25 twice a day, Ozempic 2 mg per 1.5 mL once a week, clopidogrel 75 once a day, atorvastatin 80 once a day. ALLERGIES: SHE IS ALLERGIC TO NYSTATIN TOPICAL, TRAMADOL, IODINE, CEPHALOSPORINS AND PENICILLIN. SOCIAL HISTORY: She does not smoke. PHYSICAL EXAMINATION: Blood pressure is 145/88 with a pulse of 73, respirations of 36, and temperature of 100. General she appeared to be slightly overweight and in no acute distress. Skin color is normal. Skin was warm and dry. Head, ears, eyes, nose, mouth and throat were normal. Chest demonstrates somewhat decreased breath sounds with occasional rales. Cardiac exam demonstrates sinus rhythm and no murmurs or extra sounds. Abdomen is slightly protuberant, soft and nontender. Extremities are normal. Neurological: She is intact IMPRESSION: She is admitted to the hospital with diagnoses: 1. COVID pneumonia. 2. Coronary artery disease. 3. Hypertension. 4. Insulin-dependent diabetes mellitus. PLAN: 1. Bedrest. 2. IV fluids. 3. Nasal O2. 4. Pulmonology and Cardiology consult because of her episode of chest pain. MMELIZABETHL / CHERYL: [id number] /
--- NOTE | 2020-06-17 18:42 | PN ---
PROGRESS NOTE DATE OF SERVICE: 06/17/2020. CHIEF COMPLAINT: Chest pain, shortness of breath with Covid. HISTORY OF PRESENT ILLNESS: This lady is doing well. She has had no further chest pain. Enzymes have been normal. She is not particularly short of breath and she has had no fever or chills. PHYSICAL EXAMINATION: Chest is quite clear. Cardiac exam is normal with sinus rhythm. Abdomen is soft. IMPRESSION: 1. Chest pain. 2. Coronary artery disease. 3. Covid pneumonia. 4. Diabetes. 5. Hypertension. PLAN: Progress activity and wait Cardiology and Pulmonology evaluations. MMODL / IJN: [id number] /
[2020-06-17 20:50] LABS: Glucose,Whole Blood 160 mg/dL (75-99)
[2020-06-17] MEDS: BENZOCAINE/MENTHOL LOZENG 1 EACH LOZENGE MUCOUS MEM PRN (20:50)
[2020-06-17] MEDS ORDERED: INSULIN DETEMIR (LEVEMIR) 100 UNIT/ML SYR SQ SCH (21:00)
[2020-06-17] MEDS ORDERED: ATORVASTATIN 80 MG TAB PO SCH (21:00)
[2020-06-18] MEDS: NITROGLYCERIN OINT 1 INCH/GM PACKET TOPICAL SCH ×3 (00:52→12:29)
[2020-06-18] MEDS: HYDROcodone/APAP 5-325MG 1 EACH TAB PO PRN (02:31)
[2020-06-18] MEDS: BENZOCAINE/MENTHOL LOZENG 1 EACH LOZENGE MUCOUS MEM PRN (02:31)
[2020-06-18 03:20] VITALS: RESP 16
[2020-06-18 08:12] VITALS: BP 154/100; PULSE 82; TEMP 98.1
[2020-06-18 08:15] LABS: Glucose,Whole Blood 132 mg/dL (75-99)
[2020-06-18] MEDS: PANTOPRAZOLE 40 MG TABLET PO SCH (08:15)
[2020-06-18] MEDS: ASCORBIC ACID 500 MG TAB PO SCH (08:15)
[2020-06-18] MEDS: APIXABAN 5 MG TAB PO SCH (08:15)
[2020-06-18] MEDS: ZINC SULFATE 220 MG CAP PO SCH (08:15)
[2020-06-18] MEDS: SPIRONOLACTONE 25 MG TAB PO SCH (08:15)
[2020-06-18] MEDS: CHOLECALCIFEROL 25 MCG (1000 IU) TABLET PO SCH (08:15)
[2020-06-18] MEDS: CLOPIDOGREL 75 MG TAB PO SCH (08:15)
[2020-06-18] MEDS: FERROUS SULFATE 325 MG TAB PO SCH (08:15)
[2020-06-18] MEDS: FUROSEMIDE 40 MG TAB PO SCH ×2 (08:15→08:17)
[2020-06-18] MEDS: lisinopriL 20 MG TAB PO SCH (08:15)
[2020-06-18] MEDS: hydrALAZINE HCL 50 MG TAB PO SCH (08:15)
[2020-06-18] MEDS: carvediloL 12.5 MG TAB PO SCH (08:16)
[2020-06-18] MEDS: SERTRALINE 50 MG TAB PO SCH (08:26)
[2020-06-18] MEDS: ALBUTEROL HFA INHALER INHALATION PRN ×2 (09:04→13:24)
--- NOTE | 2020-06-18 09:21 | ECHOF ---
Referral Reason:chest pain MEASUREMENTS -------- HEIGHT: 157.5 cm WEIGHT: 97.5 kg BP: RVIDd: 2.7 cm (< 3.3) IVSd: 1.4 cm (0.6 - 1.1) LVIDd: 4.6 cm (3.9 - 5.3) LVPWd: 1.4 cm (0.6 - 1.1) IVSs: 2.2 cm LVIDs: 3.0 cm LVPWs: 1.8 cm LA Diam: 4.0 cm (2.7 - 3.8) LAESV Index (A-L): 32.69 ml/m Ao Diam: 2.8 cm (2.0 - 3.7) MV EXCURSION: 17.354 mm (> 18.000) MV EF SLOPE: 61 mm/s (70 - 150) EPSS: 0.7 cm MV E Terrell: 0.97 m/s MV DecT: 270 ms MV A Terrell: 0.61 m/s MV E/A Ratio: 1.58 FINDINGS -------- Sinus rhythm. This was a technically adequate study. The left ventricular size is normal. There is moderate concentric left ventricular hypertrophy. O verall left ventricular systolic function is mildly impaired with, an EF between 45 - 50 %. Apical inferior LV wall motion is hypokinetic. Apical septum LV wall motion is hypokinetic. The right ventricle is normal in size. LA is midly dilated 29-33ml/m2. The right atrium is normal in size. Interatrial and interventricular septum intact. The aortic valve is trileaflet and appears structurally normal. The mitral valve is normal. The tricuspid valve appears structurally normal. Unable to estimate RVSP due to inadequate TR jet s pectral doppler profile. Trace/mild (physiologic) pulmonic regurgitation. The aortic root size is normal. Normal inferior vena cava with normal inspiratory collapse consistent with estimated right atrial pre ssure of 5 mmHg. There is no pericardial effusion. CONCLUSIONS -------- 1. The left ventricular size is normal. 2. There is moderate concentric left ventricular hypertrophy. 3. Overall left ventricular systolic function is mildly impaired with, an EF between 45 - 50 %. 4. Apical inferior LV wall motion is hypokinetic. 5. Apical septum LV wall motion is hypokinetic. 6. LA is midly dilated 29-33ml/m2. 7. The aortic valve is trileaflet and appears structurally normal. 8. Trace/mild (physiologic) pulmonic regurgitation. 9. There is no pericardial effusion. ROLLER INSPECTOR AND MENDER: Asuncion Aleman RDCS
--- NOTE | 2020-06-18 11:25 | XR ---
EXAMINATION TYPE: XR chest 1V portable DATE OF EXAM: 06/18/2020 COMPARISON: 06/16/2020 HISTORY: Chest pain TECHNIQUE: Single frontal view of the chest is obtained. FINDINGS: Persistent patchy infiltrate left perihilar region. The cardiac silhouette size is within normal limits. The osseous structures are intact. IMPRESSION: 1. Persistent patchy infiltrate left perihilar region.
[2020-06-18 12:09] LABS: Glucose,Whole Blood 162 mg/dL (75-99)
--- NOTE | 2020-06-18 12:38 | P.CNPUL ---
History of Present Illness Consult date: 06/18/20 Requesting physician: Odell Sena Reason for consult: dyspnea Chief complaint: Shortness of breath, cough, chest pain, nausea History of present illness: This is a very pleasant 39-year-old female patient with a significant history of coronary artery disease with previous stent placements 4, strong family history of COPD, leukemia, obesity, pulmonary embolism currently on Eliquis. He presented to the emergency room on 06/16/2020 with complaints of chest discomfort. Been going on for several days prior to her arrival along with some associated coughing and shortness of breath. Troponins were negative. She was found to be positive for chronic virus by PCR. She is seen today in consultation on the regular medical floor. Currently resting comfortably in bed. Awake and alert in no acute distress. Maintaining O2 saturations in the 90s on room air. No further chest discomfort. Echocardiogram reveals mildly impaired left ventricular systolic function with ejection fraction 45-50%. She's been initiated on vitamin supplements, anticoagulated with Eliquis. White count 2.3. Hemoglobin 14.0. INR 1.0. Sodium 137. Potassium 4.4. Creatinine 1.20. Glucose 162. Review of Systems REVIEW OF SYSTEMS: CONSTITUTIONAL: Denies any recent significant weight loss or weight gain. EYES: Denies change in vision. EARS, NOSE, MOUTH, THROAT: Denies headaches, denies sore throat. CARDIOVASCULAR: Positive for chest pain, no palpitations or syncopal episodes. RESPIRATORY: Positive for shortness of breath, cough, congestion no hemoptysis. GASTROINTESTINAL: Denies change in appetite, denies abdominal pain GENITOURINARY: Denies hematuria, denies infections. MUSKULOSKELETAL: Denies pain, denies swelling. INTEGUMENTARY: Denies rash, denies eczema. NEUROLOGICAL: Denies recent memory loss, no recent seizure activity. PSYCHIATRIC: Denies anxiety, denies depression. HEMATOLOGIC/LYMPHATIC: Denies anemia, denies enlarged lymph nodes. Past Medical History Past Medical History: Atrial Fibrillation, Asthma, Coronary Artery Disease (CAD), Diabetes Mellitus, GERD/Reflux, Hyperlipidemia, Hypertension, Myocardial Infarction ([place]), Pulmonary Embolus (PE) Additional Past Medical History / Comment(s): peptic ulcer, gall stones, kidney stone, childhood leukemia Last Myocardial Infarction Date:: 05/01/2019 History of Any Multi-Drug Resistant Organisms: None Reported Past Surgical History: Section, Heart Catheterization With Stent, Joint Replacement, Tonsillectomy, Tubal Ligation Additional Past Surgical History / Comment(s): 4 stents, partial right knee replacement Past Anesthesia/Blood Transfusion Reactions: No Reported Reaction Date of Last Stent Placement:: 08/02/18 Past Psychological History: Anxiety, Bipolar, Depression, Schizophrenia Smoking Status: Never smoker Past Alcohol Use History: None Reported Past Drug Use History: None Reported - Past Family History Father Family Medical History: Hyperlipidemia, Hypertension Additional Family Medical History / Comment(s): pins in knee, heart stents x 4 Medications and Allergies Home Medications Medication Instructions Recorded Confirmed Type Ferrous Sulfate [Iron] 325 mg PO DAILY 07/11/18 06/16/20 History carvediloL [Carvedilol] 25 mg PO BID 07/11/18 06/16/20 History Atorvastatin [Lipitor] 80 mg PO HS #30 tab 12/06/18 06/16/20 Rx Clopidogrel [Plavix] 75 mg PO DAILY #30 tab 12/06/18 06/16/20 Rx Nitroglycerin Sl Tabs [Nitrostat] 0.4 mg SUBLINGUAL Q5M PRN #25 tab 12/06/18 06/16/20 Rx Spironolactone [Aldactone] 25 mg PO DAILY #30 tab 12/06/18 06/16/20 Rx Pantoprazole [Protonix] 40 mg PO BID 04/27/19 06/16/20 History Semaglutide [Ozempic] 0.5 mg SQ MO 11/19/19 06/16/20 History Apixaban [Eliquis] 5 mg PO BID #180 tab 11/21/19 06/16/20 Rx Furosemide [Lasix] 40 mg PO BID #60 tab 11/22/19 06/16/20 Rx Sertraline [Zoloft] 50 mg PO DAILY #30 tab 11/22/19 06/16/20 Rx lisinopriL [Zestril] 20 mg PO DAILY #30 tab 11/22/19 06/16/20 Rx traZODone HCL [Desyrel] 50 mg PO HS #10 tab 11/22/19 06/16/20 Rx ALPRAZolam [Xanax] 0.5 mg PO DAILY PRN 06/16/20 06/16/20 History Albuterol Sulfate [Ventolin HFA] 2 puff INHALATION RT-Q4H PRN 06/16/20 06/16/20 History Insulin Glargine,Hum.rec.anlog 40 unit SQ HS 06/16/20 06/16/20 History [Basaglar Kwikpen U-100] hydrALAZINE HCL [Apresoline] 100 mg PO DAILY 06/16/20 06/16/20 History Allergies Allergy/AdvReac Type Severity Reaction Status Date / Time cephalexin [From Keflex] Allergy Rash/Hives Verified 06/16/20 18:38 codeine Allergy Rash/Hives Verified 06/16/20 18:38 Iodine and Iodide Containing Allergy Rash/Hives Verified 06/16/20 18:38 Produc Penicillins Allergy Rash/Hives Verified 06/16/20 18:38 tramadol Allergy Rash/Hives Verified 06/16/20 18:38 Physical Exam Vitals: Vital Signs Temp Pulse Resp BP Pulse Ox 06/18/20 08:10 98.1 F 82 16 154/100 92 L 06/18/20 02:00 98.6 F 89 16 98/65 92 L 06/17/20 20:00 98.3 F 88 16 115/67 93 L 06/17/20 14:21 85 108/69 94 L 06/17/20 14:00 22 Intake and Output 06/17/20 06/18/20 06/18/20 22:59 06:59 14:59 Intake Total 400 Balance 400 Intake: Oral 400 Other: Voiding Method Toilet Toilet # Voids 1 2 GENERAL EXAM: Alert, active, obese 39-year-old female patient, on room air, comfortable in no apparent distress. HEAD: Normocephalic. EYES: Normal reaction of pupils, equal size. NOSE: Clear with pink turbinates. THROAT: No erythema or exudates. NECK: No masses, no JVD. CHEST: No chest wall deformity. LUNGS: Equal air entry with no crackles, wheeze, rhonchi or dullness. CVS: S1 and S2 normal with no audible murmur, regular rhythm. ABDOMEN: No hepatosplenomegaly, normal bowel sounds, no guarding or rigidity. SPINE: No scoliosis or deformity SKIN: No rashes CENTRAL NERVOUS SYSTEM: No focal deficits, tone is normal in all 4 extremities. EXTREMITIES: There is no peripheral edema. No clubbing, no cyanosis. Peripheral pulses are intact. Results - Laboratory Findings CBC and BMP: 06/16/20 18:07 06/16/20 18:07 PT/INR, D-dimer PT 10.3 sec (9.0-12.0) 06/16/20 18:07 INR 1.0 (<1.2) 06/16/20 18:07 Abnormal lab findings: Abnormal Labs 06/16/20 06/16/20 06/16/20 16:08 18:07 18:07 WBC 2.3 L RDW 15.6 H Lymphocytes # 0.5 L BUN 23 H Creatinine 1.20 H Glucose 129 H POC Glucose (mg/dL) HDL Cholesterol Coronavirus (PCR) Detected A 06/17/20 06/17/20 06/17/20 00:29 08:28 12:06 WBC RDW Lymphocytes # BUN Creatinine Glucose POC Glucose (mg/dL) 127 H 173 H HDL Cholesterol 19 L Coronavirus (PCR) 06/17/20 06/17/20 06/18/20 17:08 20:48 08:14 WBC RDW Lymphocytes # BUN Creatinine Glucose POC Glucose (mg/dL) 190 H 160 H 132 H HDL Cholesterol Coronavirus (PCR) 06/18/20 12:07 WBC RDW Lymphocytes # BUN Creatinine Glucose POC Glucose (mg/dL) 162 H HDL Cholesterol Coronavirus (PCR) - Diagnostic Findings Chest x-ray: image reviewed Assessment and Plan Assessment: 1 Chest pain, acute coronary syndrome ruled out. 2 CoVID 19 infection without hypoxemia. 3 History of coronary artery disease with previous stent placements 4 4 History of pulmonary embolism, anticoagulated with Eliquis 5 Obesity 6 Hypertension 7 Hyperlipidemia 8 Diabetes mellitus 9 History of bipolar/schizophrenia disorder Plan: The patient was seen and evaluated by Dr. Gagnon Today's chest x-ray reviewed The patient is stable from the pulmonary standpoint and on room air Home once cleared by cardiology I, the cosigning physician, performed a history & physical examination of the patient. Lungs sounds are clear. Maintaining good O2 saturations in the 90s on room air. I discussed the assessment and plan of care with my nurse practitioner, Dina England. I attest to the above consultation as dictated by her. Time with Patient: Greater than 30
--- NOTE | 2020-06-18 13:39 | P.CRDCN ---
History of Present Illness History of present illness: This is a pleasant 39-year-old female past medical history significant for coronary artery disease s/p stenting of mid LAD in April 2019, myocardial infarction, type 2 diabetes mellitus, hypertension, dyslipidemia, chronic systolic heart failure, mental illness and former nicotine dependence. She follows in the office with Dr. Davila. We have been asked to see in consultati on for chest pain. Patient states for the past 5 days shes been having cold like symptoms and shortness of breath. Yesterday morning, she had left sided chest pain that lasted 10 minutes, it was sharp, localized. Non-radiating. Non- exertional. She took an aspirin at home and decided to come to the emergency department. She denies nausea, diaphoresis, increased shortness of breath, lightheadedness, or dizziness. On admission, patient found to be COVID-19 positive. In november 2019, patient was admitted with worsening shortness of breath and lower extremity edema. She had mildly elevated troponins. Elevated BNP at 1830 echocardiogram revealed LV function at 3545 percent with grade 3 diastolic dysfunction with takotsubo-like cardiomyopathy. Patient underwent cardiac catheterization to rule out progression of coronary artery disease which revealed patent stent in LAD and left circumflex, and chronic total occlusion in her obtuse marginal branch. She was to continue maximal medical treatment for cardiomyopathy. In addition, on her echocardiogram and LV thrombus was seen in the apex of the heart and patient was started on Eliquis. Chest pain has resolved on exam. Current home cardiac medications include lisinopril 20 mg daily, atorvastatin 80 mg nightly, hydralazine 100 mg daily, Lasix 40 mg twice a day, Eliquis 5 mg twice a day, carvedilol 25 mg twice a day, Plavix 75 mg daily. aboratory reviewed, troponin negative 3, BNP 159, sodium 137, potassium 4.4, serum creatinine 1.20 (baseline 0.8-0.9), BUN 23, magnesium 2.1, triglycerides 125, cholesterol 119, LDL 75, HDL 19, WBC 2.3, hemoglobin 14, platelets 192. INR 1.0. DIAGNOSTICS EKG reveals sinus tachycardia no significant ST-T wave abnormalities Chest xray left sided pulmonary edema likely related to acute pneumonia Cardiac catheterization 11/2019patent stent in the LAD and the left circumflex. Significant stenosis in the third obtuse marginal branch as well as the first diagonal branch, unchanged compared to 2019. Echocardiogram 11/2019LV function at 3545% with grade 3 diastolic dysfunction Takotsubo-like cardiomyopathy. Severely dilated LA, mild to moderate MR, moderate pulmonary hypertension. LV Thrombus seen in the apex of the heart Echocardiogram 05/2019left ventricular systolic function 5055%, diastolic function indicates grade 2 diastolic dysfunction, LA is moderately dilated, mild MR, mild TR 06/18/20: Patient with no acute events overnight. Telemetry reviewed patient in sinus rhythm with HR 80s. Echocardiogram left ventricular systolic function is mildly impaired with an EF 45-50%, apical inferior LV wall motion is hypokinetic, apical septum LV wall motion is hypokinetic, LA is mildly dilated, moderate concentric left ventricular hypertrophy PHYSICAL EXAMINATION Thorough physical examination not completed due to COVID-19. Patient discussed, chart reviewed Blood pressure 98/65 heart rate 82 afebrile and SpO2 92% on room air. ASSESSMENT Chest pain, atypical, acute coronary syndrome ruled out Covid-19 pneumonia Acute Kidney Injury Chronic systolic heart failure, stress-induced cardiomyopathy Coronary artery disease status post PCI in the setting of a myocardial infarc tion LV Thrombus- on Eliquis Type 2 Diabetes mellitus Hypertension Dyslipidemia Obesity, BMI 39 PLAN An acute coronary event has been ruled out with no EKG evidence of ischemia and negative cardiac enzymes 2D echocardiogram and doppler study obtained with improvement in EF from prior echo Continue home cardiac medications We will sign off at this time. Patient to follow up in the office with Dr. Davila at scheduled visit on 07/17/20 Nurse Practitioner note has been reviewed, I agree with a documented findings and plan of care. Patient was seen and examined. Past Medical History Past Medical History: Atrial Fibrillation, Asthma, Coronary Artery Disease (CAD), Diabetes Mellitus, GERD/Reflux, Hyperlipidemia, Hypertension, Myocardial Infarction ([place]), Pulmonary Embolus (PE) Additional Past Medical History / Comment(s): peptic ulcer, gall stones, kidney stone, childhood leukemia Last Myocardial Infarction Date:: 05/01/2019 History of Any Multi-Drug Resistant Organisms: None Reported Past Surgical History: Section, Heart Catheterization With Stent, Joint Replacement, Tonsillectomy, Tubal Ligation Additional Past Surgical History / Comment(s): 4 stents, partial right knee replacement Past Anesthesia/Blood Transfusion Reactions: No Reported Reaction Date of Last Stent Placement:: 05/16/19 Past Psychological History: Anxiety, Bipolar, Depression, Schizophrenia Smoking Status: Never smoker Past Alcohol Use History: None Reported Past Drug Use History: None Reported - Past Family History Father Family Medical History: Hyperlipidemia, Hypertension Additional Family Medical History / Comment(s): pins in knee, heart stents x 4 Medications and Allergies Home Medications Medication Instructions Recorded Confirmed Type Ferrous Sulfate [Iron] 325 mg PO DAILY 07/11/18 06/16/20 History carvediloL [Carvedilol] 25 mg PO BID 07/11/18 06/16/20 History Atorvastatin [Lipitor] 80 mg PO HS #30 tab 12/06/18 06/16/20 Rx Clopidogrel [Plavix] 75 mg PO DAILY #30 tab 12/06/18 06/16/20 Rx Nitroglycerin Sl Tabs [Nitrostat] 0.4 mg SUBLINGUAL Q5M PRN #25 tab 12/06/18 06/16/20 Rx Spironolactone [Aldactone] 25 mg PO DAILY #30 tab 12/06/18 06/16/20 Rx Pantoprazole [Protonix] 40 mg PO BID 04/27/19 06/16/20 History Semaglutide [Ozempic] 0.5 mg SQ MO 11/19/19 06/16/20 History Apixaban [Eliquis] 5 mg PO BID #180 tab 11/21/19 06/16/20 Rx Furosemide [Lasix] 40 mg PO BID #60 tab 11/22/19 06/16/20 Rx Sertraline [Zoloft] 50 mg PO DAILY #30 tab 11/22/19 06/16/20 Rx lisinopriL [Zestril] 20 mg PO DAILY #30 tab 11/22/19 06/16/20 Rx traZODone HCL [Desyrel] 50 mg PO HS #10 tab 11/22/19 06/16/20 Rx ALPRAZolam [Xanax] 0.5 mg PO DAILY PRN 06/16/20 06/16/20 History Albuterol Sulfate [Ventolin HFA] 2 puff INHALATION RT-Q4H PRN 06/16/20 06/16/20 History Insulin Glargine,Hum.rec.anlog 40 unit SQ HS 06/16/20 06/16/20 History [Basaglar Kwikpen U-100] hydrALAZINE HCL [Apresoline] 100 mg PO DAILY 06/16/20 06/16/20 History Allergies Allergy/AdvReac Type Severity Reaction Status Date / Time cephalexin [From Keflex] Allergy Rash/Hives Verified 06/16/20 18:38 codeine Allergy Rash/Hives Verified 06/16/20 18:38 Iodine and Iodide Containing Allergy Rash/Hives Verified 06/16/20 18:38 Produc Penicillins Allergy Rash/Hives Verified 06/16/20 18:38 tramadol Allergy Rash/Hives Verified 06/16/20 18:38 Physical Exam Vitals: Vital Signs Temp Pulse Resp BP Pulse Ox 06/18/20 08:10 98.1 F 82 16 154/100 92 L 06/18/20 02:00 98.6 F 89 16 98/65 92 L 06/17/20 20:00 98.3 F 88 16 115/67 93 L 06/17/20 14:21 85 108/69 94 L 06/17/20 14:00 22 Intake and Output 06/17/20 06/18/20 06/18/20 22:59 06:59 14:59 Intake Total 400 Balance 400 Intake: Oral 400 Other: Voiding Method Toilet Toilet # Voids 1 2 Results 06/16/20 18:07 06/16/20 18:07 Current Medications Generic Name Dose Route Start Last Admin Trade Name Freq PRN Reason Stop Dose Admin Hydrocodone Bitart/Acetaminophen 1 each 06/16/20 23:51 06/18/20 02:31 Hydrocodone/Apap 5-325mg 1 Each Tab PO 1 each Q8HR PRN Administration Pain Albuterol Sulfate 2 puff 06/16/20 23:37 06/18/20 13:24 Albuterol Hfa Inhaler INHALATION 2 puff RT-Q4H PRN Administration Shortness Of Breath Alprazolam 0.5 mg 06/16/20 23:37 Alprazolam 0.5 Mg Tab PO DAILY PRN Moderate Anxiety Apixaban 5 mg 06/17/20 09:00 06/18/20 08:15 Apixaban 5 Mg Tab PO 5 mg BID [facility] Administration Ascorbic Acid 500 mg 06/16/20 21:00 06/18/20 08:15 Ascorbic Acid 500 Mg Tab PO 500 mg BID [facility] Administration Atorvastatin Calcium 80 mg 06/17/20 21:00 06/17/20 20:50 Atorvastatin 80 Mg Tab PO 80 mg HS [facility] Administration Benzocaine/Menthol 1 each 06/17/20 12:25 06/18/20 02:31 Benzocaine/Menthol Lozeng 1 Each Lozenge MUCOUS MEM 1 each Q4HR PRN Administration Congestion Carvedilol 25 mg 06/17/20 07:30 06/18/20 08:16 Carvedilol 12.5 Mg Tab PO 25 mg BID-W/MEALS [facility] Administration Cholecalciferol 125 mcg 06/16/20 20:15 06/18/20 08:15 Cholecalciferol 25 Mcg (1000 Iu) Tablet PO 125 mcg DAILY [facility] Administration Clopidogrel Bisulfate 75 mg 06/17/20 09:00 06/18/20 08:15 Clopidogrel 75 Mg Tab PO 75 mg DAILY [facility] Administration Ferrous Sulfate 325 mg 06/17/20 09:00 06/18/20 08:15 Ferrous Sulfate 325 Mg Tab PO 325 mg DAILY [facility] Administration Furosemide 40 mg 06/17/20 09:00 06/18/20 08:17 Furosemide 40 Mg Tab PO Not Given BID [facility] Guaifenesin 200 mg 06/17/20 12:25 06/18/20 02:47 Guaifenesin Syrup 100mg/5ml 200 Mg/10 Ml Cup PO 200 mg Q6H PRN Administration Cough Hydralazine HCl 100 mg 06/17/20 09:00 06/18/20 08:15 Hydralazine Hcl 50 Mg Tab PO 100 mg DAILY [facility] Administration Insulin Detemir 40 unit 06/17/20 21:00 06/17/20 20:49 Insulin Detemir (Levemir) 100 Unit/Ml Syr SQ 40 unit HS [facility] Administration Lisinopril 20 mg 06/17/20 09:00 06/18/20 08:15 Lisinopril 20 Mg Tab PO 20 mg DAILY [facility] Administration Nitroglycerin 0.4 mg 06/16/20 20:00 Nitroglycerin Sl Tabs 0.4 Mg Tab SUBLINGUAL Q5M PRN Chest Pain Nitroglycerin 1 inch 06/17/20 00:00 06/18/20 12:29 Nitroglycerin Oint 1 Inch/Gm Packet TOPICAL Not Given Q6HR [facility] Non-Formulary Medication 0.5 mg 06/22/20 09:00 Semaglutide [Ozempic] SQ MO [facility] Ondansetron HCl 4 mg 06/17/20 13:23 06/17/20 13:46 Ondansetron 4 Mg/2 Ml Vial IVP 4 mg Q6HR PRN Administration Nausea And Vomiting Pantoprazole Sodium 40 mg 06/17/20 09:00 06/18/20 08:15 Pantoprazole 40 Mg Tablet PO 40 mg BID [facility] Administration Sertraline HCl 50 mg 06/17/20 09:00 06/18/20 08:26 Sertraline 50 Mg Tab PO 50 mg DAILY [facility] Administration Sodium Chloride 10 ml 06/16/20 21:00 06/18/20 12:29 Sodium Chloride 0.9% Flush 10 Ml Syringe IV Not Given BID [facility] Spironolactone 25 mg 06/17/20 09:00 06/18/20 08:15 Spironolactone 25 Mg Tab PO 25 mg DAILY [facility] Administration Trazodone HCl 50 mg 06/17/20 00:00 06/17/20 20:50 Trazodone Hcl 50 Mg Tab PO 50 mg HS [facility] Administration Zinc Sulfate 220 mg 06/16/20 20:15 06/18/20 08:15 Zinc Sulfate 220 Mg Cap PO 220 mg DAILY [facility] Administration Intake and Output 06/17/20 06/18/20 06/18/20 22:59 06:59 14:59 Intake Total 400 Balance 400 Intake: Oral 400 Other: Voiding Method Toilet Toilet # Voids 1 2 06/16/20 18:07 06/16/20 18:07
--- NOTE | 2020-06-19 07:01 | DS ---
DISCHARGE SUMMARY CHIEF COMPLAINT: Cough, fever, chills, and COVID pneumonia. HISTORY OF PRESENT ILLNESS AND PHYSICAL EXAMINATION: Details of this lady's history and physical can be found in the initial workup. LABORATORY STUDIES: While she was in a hospital she had laboratory studies, details of which can be found in the laboratory section of her chart. COURSE IN THE HOSPITAL: After admission she was placed on bedrest, started on intravenous fluids and nasal oxygen. She never developed a significant problem with breathing or shortness of breath. She is able to take the oxygen off and do well. Because she did have some chest pain when she came in, she was seen by Cardiology, but troponins are negative. It was not felt that she necessitated any further intervention. It was felt that she could go home on her usual activity and diet and medication and she will be followed up in several days. FINAL DIAGNOSIS: 1. COVID pneumonia. 2. Chest pain. 3. Coronary artery disease. 4. Insulin-dependent diabetes mellitus. 5. History of hypertension. OPERATIONS: None. CONSULTATION: Cardiology. She is improved. MMODL / IJN: [id number] /
[2020-06-22] MEDS ORDERED: NON FORMULARY DRUG (Semaglutide [Ozempic] 0.25 MG/0.2 ML Pen.Injctr) SQ SCH (09:00)
== END 2020-06-18 14:24 | disposition home or self-care (01) ==
LOC: EC 15:50 → 6NMEDSUR 20:00
PROVIDERS: ADMIT Family Medicine; ATTEND Family Medicine
DX: U07.1 COVID-19 (principal); J12.82 Pneumonia due to coronavirus disease 2019; N17.9 Acute kidney failure, unspecified; I11.0 Hypertensive heart disease with heart failure; I50.22 Chronic systolic (congestive) heart failure; E11.9 Type 2 diabetes mellitus without complications; I51.81 Takotsubo syndrome; E78.5 Hyperlipidemia, unspecified; I25.82 Chronic total occlusion of coronary artery; I27.20 Pulmonary hypertension, unspecified; I34.0 Nonrheumatic mitral (valve) insufficiency; I25.10 Atherosclerotic heart disease of native coronary artery without angina pectoris; I48.91 Unspecified atrial fibrillation; J45.909 Unspecified asthma, uncomplicated; K21.9 Gastro-esophageal reflux disease without esophagitis; F20.9 Schizophrenia, unspecified; F31.9 Bipolar disorder, unspecified; F41.9 Anxiety disorder, unspecified; E66.9 Obesity, unspecified; Z68.39 Body mass index [BMI] 39.0-39.9, adult; Z79.01 Long term (current) use of anticoagulants; Z79.4 Long term (current) use of insulin; Z79.02 Long term (current) use of antithrombotics/antiplatelets; Z79.899 Other long term (current) drug therapy; Z88.1 Allergy status to other antibiotic agents; Z88.5 Allergy status to narcotic agent; Z88.0 Allergy status to penicillin; Z91.048 Other nonmedicinal substance allergy status; I25.2 Old myocardial infarction; Z87.11 Personal history of peptic ulcer disease; Z87.442 Personal history of urinary calculi; Z85.6 Personal history of leukemia; Z86.711 Personal history of pulmonary embolism; Z96.651 Presence of right artificial knee joint; Z95.5 Presence of coronary angioplasty implant and graft; Z98.51 Tubal ligation status; Z98.891 History of uterine scar from previous surgery; Z87.891 Personal history of nicotine dependence; Z82.49 Family history of ischemic heart disease and other diseases of the circulatory system; Z83.49 Family history of other endocrine, nutritional and metabolic diseases; Z80.6 Family history of leukemia; Z82.5 Family history of asthma and other chronic lower respiratory diseases
CPT/HCPCS: 96366 ×2; 96375; 93005 ×2; 96365; 99285; 36415; 94640 ×3; 93306; 83880; 80061; 80053; 84443; 83735; 84484 ×2; 85025; 85610; 85730; 87635; 71045; 71046; G0378 ×3; J2405; Q0245

== ENCOUNTER 2020-08-07 13:04 | Observation (INO) | payer MEDICARE, OTHER ==
[2020-08-07 14:52] LABS: ALT 36 U/L (4-34); AST 32 U/L (14-36); African American GFR (CKD) >90 (>60 ml/min/1.73 sqM); Albumin 3.5 g/dL (3.5-5.0); Alkaline Phosphatase 49 U/L (38-126); Anion Gap 6 mmol/L; Basophils % (A) 0 %; Blood Urea Nitrogen 20 mg/dL (7-17); Calcium 8.9 mg/dL (8.4-10.2); Carbon Dioxide 23 mmol/L (22-30); Chloride 108 mmol/L (98-107); Eosinophils # (A) 0.1 k/uL (0-0.7); Eosinophils % (A) 2 %; Glucose 138 mg/dL (74-99); HCT 34.4 % (34.0-46.0); Hypochromasia Slight; Lymphocytes # (A) 1.2 k/uL (1.0-4.8); Lymphocytes % (A) 19 %; MCH 26.4 pg (25.0-35.0); MCHC 32.1 g/dL (31.0-37.0); Magnesium 1.5 mg/dL (1.6-2.3); Mean Platelet Volume 8.1; Monocytes # (A) 0.4 k/uL (0-1.0); Monocytes % (A) 6 %; Neutrophils # (A) 4.3 k/uL (1.3-7.7); Neutrophils % (A) 70 %; Non-African American GFR(CKD) 90 (>60 ml/min/1.73 sqM); Platelet Count 203 k/uL (150-450); Poikilocytosis Slight; Potassium 4.7 mmol/L (3.5-5.1); RBC 4.19 m/uL (3.80-5.40); RDW 14.1 % (11.5-15.5); Sodium 137 mmol/L (137-145); Total Bilirubin 0.5 mg/dL (0.2-1.3); WBC 6.1 k/uL (3.8-10.6)
[2020-08-07 14:56] LABS: Prothrombin Time 10.7 sec (9.0-12.0)
[2020-08-07 14:57] LABS: Partial Thromboplastin Time 20.3 sec (22.0-30.0)
--- NOTE | 2020-08-07 15:07 | ED ---
General Adult HPI - General Chief complaint: Shortness of Breath Stated complaint: Sent from Dr billy torres blood clot Time Seen by Provider: 08/07/20 13:50 Source: patient, RN notes reviewed, old records reviewed Mode of arrival: ambulatory Limitations: no limitations - History of Present Illness Initial comments: 39-year-old female with history of CAD, CHF presenting with elevated blood pressure and dyspnea. She has had some minimal chest discomfort as well. She reports bilateral lower extremity edema. She is currently on Eliquis. She had contacted her primary care physician and was sent to the emergency department for evaluation. Symptoms have been ongoing for the past several days. No significant cough or fever. No URI symptoms. - Related Data Home Medications Medication Instructions Recorded Confirmed Ferrous Sulfate [Iron] 325 mg PO DAILY 07/11/18 06/16/20 carvediloL [Carvedilol] 25 mg PO BID 07/11/18 06/16/20 Pantoprazole [Protonix] 40 mg PO BID 04/27/19 06/16/20 Semaglutide [Ozempic] 0.5 mg SQ MO 11/19/19 06/16/20 ALPRAZolam [Xanax] 0.5 mg PO DAILY PRN 06/16/20 06/16/20 Albuterol Sulfate [Ventolin HFA] 2 puff INHALATION RT-Q4H PRN 06/16/20 06/16/20 Insulin Glargine,Hum.rec.anlog 40 unit SQ HS 06/16/20 06/16/20 [Basaglar Kwikpen U-100] hydrALAZINE HCL [Apresoline] 100 mg PO DAILY 06/16/20 06/16/20 Previous Rx's Medication Instructions Recorded Atorvastatin [Lipitor] 80 mg PO HS #30 tab 12/06/18 Clopidogrel [Plavix] 75 mg PO DAILY #30 tab 12/06/18 Nitroglycerin Sl Tabs [Nitrostat] 0.4 mg SUBLINGUAL Q5M PRN #25 tab 12/06/18 Spironolactone [Aldactone] 25 mg PO DAILY #30 tab 12/06/18 Apixaban [Eliquis] 5 mg PO BID #180 tab 11/21/19 Furosemide [Lasix] 40 mg PO BID #60 tab 11/22/19 Sertraline [Zoloft] 50 mg PO DAILY #30 tab 11/22/19 lisinopriL [Zestril] 20 mg PO DAILY #30 tab 11/22/19 traZODone HCL [Desyrel] 50 mg PO HS #10 tab 11/22/19 Allergies Allergy/AdvReac Type Severity Reaction Status Date / Time cephalexin [From Keflex] Allergy Rash/Hives Verified 08/07/20 13:40 codeine Allergy Rash/Hives Verified 08/07/20 13:40 Iodine and Iodide Containing Allergy Rash/Hives Verified 08/07/20 13:40 Produc Penicillins Allergy Rash/Hives Verified 08/07/20 13:40 tramadol Allergy Rash/Hives Verified 08/07/20 13:40 Review of Systems ROS Statement: Those systems with pertinent positive or pertinent negative responses have been documented in the HPI. ROS Other: All systems not noted in ROS Statement are negative. Past Medical History Past Medical History: Atrial Fibrillation, Asthma, Coronary Artery Disease (CAD), Diabetes Mellitus, GERD/Reflux, Hyperlipidemia, Hypertension, Myocardial Infarction ([place]), Pulmonary Embolus (PE) Additional Past Medical History / Comment(s): peptic ulcer, gall stones, kidney stone, childhood leukemia Last Myocardial Infarction Date:: 05/01/2019 History of Any Multi-Drug Resistant Organisms: None Reported Past Surgical History: Section, Heart Catheterization With Stent, Joint Replacement, Tonsillectomy, Tubal Ligation Additional Past Surgical History / Comment(s): 4 stents, partial right knee replacement Past Anesthesia/Blood Transfusion Reactions: No Reported Reaction Date of Last Stent Placement:: 08/02/18 Past Psychological History: Anxiety, Bipolar, Depression, Schizophrenia Smoking Status: Never smoker Past Alcohol Use History: None Reported Past Drug Use History: None Reported - Past Family History Father Family Medical History: Hyperlipidemia, Hypertension Additional Family Medical History / Comment(s): pins in knee, heart stents x 4 General Exam Limitations: no limitations General appearance: alert, in no apparent distress Head exam: Present: atraumatic, normocephalic Eye exam: Present: normal appearance, PERRL ENT exam: Present: normal exam Neck exam: Present: normal inspection. Absent: tenderness, meningismus Respiratory exam: Present: rales, decreased breath sounds. Absent: respiratory distress Cardiovascular Exam: Present: regular rate, normal rhythm GI/Abdominal exam: Present: soft. Absent: distended, tenderness, guarding Extremities exam: Present: pedal edema. Absent: calf tenderness Neurological exam: Present: alert, oriented X3, CN II-XII intact. Absent: motor sensory deficit Psychiatric exam: Present: normal affect, normal mood Skin exam: Present: warm, dry, intact. Absent: cyanosis, diaphoretic Course Vital Signs 08/07/20 13:37 Temperature 97.8 F Pulse Rate 98 Respiratory 18 Rate Blood Pressure 187/107 O2 Sat by Pulse 99 Oximetry EKG Findings - EKG Comments: EKG Findings:: EKG: Normal sinus rhythm, left atrial enlargement, rate of 96, ND interval 138, QRS duration 84, QTC 480, no ST segment elevation. Medical Decision Making - Medical Decision Making 39-year-old female history of CHF, CAD presenting with increased dyspnea. Patient sent in by primary care physician. Chest x-ray showed pulmonary vascular congestion, she has indeterminant troponin is 0.033, BNP of 910. She is anticoagulated on home medication. She has a 3 g drop in hemoglobin with hemoglobin of 11 with no complaints of bleeding. Patient's given Lasix in the emergency department. She will be admitted with cardiology on consultation. Serial cardiac enzymes have been ordered. Case discussed with Dr. Sena who will admit. - Lab Data Result diagrams: 08/07/20 14:30 08/07/20 14:30 Lab Results 08/07/20 08/07/20 08/07/20 Range/Units 14:30 14:30 14:30 WBC 6.1 (3.8-10.6) k/uL RBC 4.19 (3.80-5.40) m/uL Hgb 11.0 L D (11.4-16.0) gm/dL Hct 34.4 (34.0-46.0) % MCV 82.0 (80.0-100.0) fL MCH 26.4 (25.0-35.0) pg MCHC 32.1 (31.0-37.0) g/dL RDW 14.1 (11.5-15.5) % Plt Count 203 (150-450) k/uL MPV 8.1 Neutrophils % 70 % Lymphocytes % 19 % Monocytes % 6 % Eosinophils % 2 % Basophils % 0 % Neutrophils # 4.3 (1.3-7.7) k/uL Lymphocytes # 1.2 (1.0-4.8) k/uL Monocytes # 0.4 (0-1.0) k/uL Eosinophils # 0.1 (0-0.7) k/uL Basophils # 0.0 (0-0.2) k/uL Hypochromasia Slight Poikilocytosis Slight PT 10.7 (9.0-12.0) sec INR 1.0 (<1.2) APTT 20.3 L (22.0-30.0) sec Sodium 137 (137-145) mmol/L Potassium 4.7 (3.5-5.1) mmol/L Chloride 108 H (98-107) mmol/L Carbon Dioxide 23 (22-30) mmol/L Anion Gap 6 mmol/L BUN 20 H (7-17) mg/dL Creatinine 0.82 (0.52-1.04) mg/dL Est GFR (CKD-EPI)AfAm >90 (>60 ml/min/1.73 sqM) Est GFR (CKD-EPI)NonAf 90 (>60 ml/min/1.73 sqM) Glucose 138 H (74-99) mg/dL Plasma Lactic Acid Dalton (0.7-2.0) mmol/L Calcium 8.9 (8.4-10.2) mg/dL Magnesium 1.5 L (1.6-2.3) mg/dL Total Bilirubin 0.5 (0.2-1.3) mg/dL AST 32 (14-36) U/L ALT 36 H (4-34) U/L Alkaline Phosphatase 49 (38-126) U/L Troponin I (0.000-0.034) ng/mL NT-Pro-B Natriuret Pep pg/mL Total Protein 6.0 L (6.3-8.2) g/dL Albumin 3.5 (3.5-5.0) g/dL 08/07/20 08/07/20 08/07/20 Range/Units 14:30 14:30 14:30 WBC (3.8-10.6) k/uL RBC (3.80-5.40) m/uL Hgb (11.4-16.0) gm/dL Hct (34.0-46.0) % MCV (80.0-100.0) fL MCH (25.0-35.0) pg MCHC (31.0-37.0) g/dL RDW (11.5-15.5) % Plt Count (150-450) k/uL MPV Neutrophils % % Lymphocytes % % Monocytes % % Eosinophils % % Basophils % % Neutrophils # (1.3-7.7) k/uL Lymphocytes # (1.0-4.8) k/uL Monocytes # (0-1.0) k/uL Eosinophils # (0-0.7) k/uL Basophils # (0-0.2) k/uL Hypochromasia Poikilocytosis PT (9.0-12.0) sec INR (<1.2) APTT (22.0-30.0) sec Sodium (137-145) mmol/L Potassium (3.5-5.1) mmol/L Chloride (98-107) mmol/L Carbon Dioxide (22-30) mmol/L Anion Gap mmol/L BUN (7-17) mg/dL Creatinine (0.52-1.04) mg/dL Est GFR (CKD-EPI)AfAm (>60 ml/min/1.73 sqM) Est GFR (CKD-EPI)NonAf (>60 ml/min/1.73 sqM) Glucose (74-99) mg/dL Plasma Lactic Acid Dalton 1.1 (0.7-2.0) mmol/L Calcium (8.4-10.2) mg/dL Magnesium (1.6-2.3) mg/dL Total Bilirubin (0.2-1.3) mg/dL AST (14-36) U/L ALT (4-34) U/L Alkaline Phosphatase (38-126) U/L Troponin I 0.033 (0.000-0.034) ng/mL NT-Pro-B Natriuret Pep 910 pg/mL Total Protein (6.3-8.2) g/dL Albumin (3.5-5.0) g/dL Disposition Clinical Impression: CHF exacerbation, Bilateral lower extremity edema, Chest pain Disposition: ADMITTED IP TO THIS HOSP Condition: Stable Is patient prescribed a controlled substance at d/c from ED?: No Referrals: Odell Sena MD [Primary Care Provider] - 1-2 days Decision to Admit Reason: Admit from EC Decision Date: 08/07/20 Decision Time: 15:59
--- NOTE | 2020-08-07 15:23 | XR ---
EXAMINATION TYPE: XR chest 2V DATE OF EXAM: 08/07/2020 COMPARISON: 06/18/2020 HISTORY: Difficulty breathing TECHNIQUE: Frontal and lateral views of the chest are obtained. FINDINGS: There is no focal air space opacity. No evidence for pneumothorax. No pleural effusion. There is cardiomegaly with pulmonary venous congestion. No evidence for overt failure at this time. R esolution of previously noted infiltrates throughout the left midlung zone. The osseous structures are grossly intact. IMPRESSION: 1. There is cardiomegaly with pulmonary venous congestion. No evidence for overt failure at this dane e.
[2020-08-07] MEDS ORDERED: ACETAMINOPHEN TAB 325 MG TAB PO PRN (15:56)
[2020-08-07] MEDS ORDERED: NALOXONE 0.4 MG/ML 1 ML VIAL IV PRN (15:56)
[2020-08-07] MEDS ORDERED: FUROSEMIDE 10 MG/ML 4 ML VIAL IV STA (15:56)
[2020-08-07] MEDS ORDERED: hydrALAZINE HCL 50 MG TAB PO STA (16:58)
[2020-08-07 17:23] LABS: Glucose,Whole Blood 169 mg/dL (75-99)
[2020-08-07] MEDS ORDERED: ALBUTEROL NEBULIZED 2.5 MG/3 ML INHALATION PRN ×2 (18:40→18:56)
[2020-08-07] MEDS ORDERED: ALPRAZolam 0.5 MG TAB PO PRN (18:40)
[2020-08-07] MEDS: carvediloL 12.5 MG TAB PO SCH ×2 (19:43→20:06)
[2020-08-07] MEDS: SYMBICORT 160-4.5 MCG INHALER INHALATION SCH (20:23)
[2020-08-07 20:32] LABS: Glucose,Whole Blood 206 mg/dL (75-99)
[2020-08-07] MEDS: PANTOPRAZOLE 40 MG TABLET PO SCH (20:49)
[2020-08-07] MEDS: APIXABAN 5 MG TAB PO SCH (20:49)
[2020-08-07] MEDS: hydrALAZINE HCL 50 MG TAB PO SCH (20:49)
[2020-08-07] MEDS: INSULIN DETEMIR (LEVEMIR) 100 UNIT/ML SYR SQ SCH (20:50)
[2020-08-07] MEDS: traZODone HCL 50 MG TAB PO SCH (20:50)
[2020-08-07] MEDS: ATORVASTATIN 80 MG TAB PO SCH (20:50)
[2020-08-08 06:15] LABS: Glucose,Whole Blood 99 mg/dL (75-99)
[2020-08-08] MEDS: SYMBICORT 160-4.5 MCG INHALER INHALATION SCH ×2 (08:08→20:17)
[2020-08-08] MEDS: APIXABAN 5 MG TAB PO SCH ×2 (08:41→20:09)
[2020-08-08] MEDS: MONTELUKAST 10 MG TAB PO SCH (08:41)
[2020-08-08] MEDS: FERROUS SULFATE 325 MG TAB PO SCH (08:41)
[2020-08-08] MEDS: NITROGLYCERIN 0.4MG/HR PATCH TRANSDERM SCH (08:41)
[2020-08-08] MEDS: hydrALAZINE HCL 50 MG TAB PO SCH ×3 (08:41→20:08)
[2020-08-08] MEDS: POTASSIUM CHLORIDE ER 20 MEQ TAB.ER PO SCH (08:41)
[2020-08-08] MEDS: CLOPIDOGREL 75 MG TAB PO SCH (08:41)
[2020-08-08] MEDS: SERTRALINE 50 MG TAB PO SCH (08:41)
[2020-08-08] MEDS: PANTOPRAZOLE 40 MG TABLET PO SCH ×2 (08:41→20:09)
[2020-08-08] MEDS: SPIRONOLACTONE 25 MG TAB PO SCH (08:43)
[2020-08-08] MEDS: FLUTICASONE 50MCG/SPRAY NASAL 16GM EA NOSTRIL SCH (08:43)
[2020-08-08] MEDS ORDERED: NON FORMULARY DRUG (Hydralazine Hcl [Apresoline] 100 MG Tablet) PO SCH (09:00)
[2020-08-08 12:24] LABS: Glucose,Whole Blood 116 mg/dL (75-99)
--- NOTE | 2020-08-08 12:52 | P.CRDCN ---
History of Present Illness Consult date: 08/08/20 History of present illness: HISTORY OF PRESENT ILLNESS: This is a 39-year-old female with a past medical history significant for coronary artery disease with previous stenting to the LAD, hypertension, hyperlipidemia, congestive heart failure, and LV thrombus on anticoagulation with Eliquis. Patient follows in the office with Dr. Davila. We have been asked to see the patient in consultation for congestive heart failure. Patient examined at the bedside. Patient states she has noticed increasing shortness of breath over the last week. She also reports increased lower extremity edema. Patient states she also takes her blood pressure daily and noticed it has been elevated over the last week. She states she has been compliant with her m edications. She usually takes Lasix every Monday and Monday. She states that over the past week she was taking it daily due to her swelling and shortness of breath. She denies any increased salt intake. At the time of examination this morning, patient denies chest pain or pressure. She states her shortness of breath has significantly improved and is now able to ambulate in her room without dyspnea. Patient's hydralazine was increased per internal medicine and patients blood pressures are now in the 140s systolic, down from 180s to 190s EKG reveals sinus mechanism with no signs of acute ischemia Chest xray cardiomegaly with pulmonary venous congestion. No evidence for overt failure at this time Laboratory data: WBC 6.1. Hemoglobin 11.0. Platelet count 203. Sodium 137. Potassium 4.7. BUN 20. Creatinine 0.82. BNP 910. Troponin 0.033. 0.036. 0.029. Current home cardiac medications include hydralazine 100 mg daily, carvedilol 25 mg twice a day, Aldactone 50 mg daily, Lasix 40 mg on Monday and Monday, Plavix 75 mg daily, Lipitor 80 mg daily, and Eliquis 5 mg twice a day Most recent echocardiogram obtained in May 2020 revealed ejection fraction 45- 50% Cardiac catheterization history: Patient underwent cardiac catheterization in April 2019 with stent placement to the LAD. She also underwent cardiac catheterization in November 2019 revealing patent stent to the LAD and circumflex REVIEW OF SYSTEMS: At the time of my exam: CONSTITUTIONAL: Denies fever or chills. HEENT: Denies blurred vision, vision changes, or eye pain. Denies hemoptysis CARDIOVASCULAR: Denies chest pain. Denies orthopnea. Denies PND. Denies palpitations RESPIRATORY: Denies shortness of breath. GASTROINTESTINAL: Denies abdominal pain. Denies nausea or vomiting. HEMATOLOGIC: Denies bleeding disorders. GENITOURINARY: Denies any blood in urine. SKIN: Denies pruitis. Denies rash. PHYSICAL EXAM: VITAL SIGNS: Reviewed. GENERAL: Well-developed in no acute distress. HEENT: Head is normocephalic. Pupils are equal, round. Sclerae anicteric. Mucous membranes of the mouth are moist. Neck supple. No JVD or thyromegaly LUNGS: Respirations even and unlabored. Lungs essentially clear to auscultation bilaterally. HEART: Regular rate and rhythm. S1 and S2 heard. ABDOMEN: Soft. Nondistended. Nontender. EXTREMITIES: Normal range of motion. No clubbing or cyanosis. Peripheral pulses intact. Trace bilateral lower extremity edema NEUROLOGIC: Awake and alert. Oriented x 3. ASSESSMENT: Acute exacerbation of chronic diastolic heart failure, ejection fraction 45-50% Hypertension, uncontrolled Hyperlipidemia Coronary artery disease with previous PCI to LAD and circumflex History of LV thrombus, on anticoagulation with Eliquis Morbid obesity: BMI 40.0 Anxiety Depression Bipolar disorder Schizophrenia PLAN: No need to repeat echocardiogram as this was recently performed Hydralazine has been increased to 100 mg 3 times a day per internal medicine Add Norvasc 10 mg daily Change Lasix to 40 mg by mouth daily. Continue spironolactone Continue to monitor blood pressure Further recommendations pending patient's course Nurse practitioner note has been reviewed by physician. Signing provider agrees with the documented findings, assessment, and plan of care. Past Medical History Past Medical History: Atrial Fibrillation, Asthma, Coronary Artery Disease (CAD), Diabetes Mellitus, GERD/Reflux, Hyperlipidemia, Hypertension, Myocardial Infarction ([place]), Pulmonary Embolus (PE) Additional Past Medical History / Comment(s): peptic ulcer, gall stones, kidney stone, childhood leukemia Last Myocardial Infarction Date:: 05/01/2019 History of Any Multi-Drug Resistant Organisms: None Reported Past Surgical History: Section, Heart Catheterization With Stent, Joint Replacement, Tonsillectomy, Tubal Ligation Additional Past Surgical History / Comment(s): 4 stents, partial right knee replacement Past Anesthesia/Blood Transfusion Reactions: No Reported Reaction Date of Last Stent Placement:: 08/02/18 Past Psychological History: Anxiety, Bipolar, Depression, Schizophrenia Smoking Status: Never smoker Past Alcohol Use History: None Reported Past Drug Use History: None Reported Additional Drug Use History / Comment(s): stopped smoking in 2010; only smoked for 4-5 months. - Past Family History Father Family Medical History: Hyperlipidemia, Hypertension Additional Family Medical History / Comment(s): pins in knee, heart stents x 4 Medications and Allergies Home Medications Medication Instructions Recorded Confirmed Type Ferrous Sulfate [Iron] 325 mg PO DAILY 07/11/18 08/07/20 History carvediloL [Carvedilol] 25 mg PO BID 07/11/18 08/07/20 History Atorvastatin [Lipitor] 80 mg PO HS #30 tab 12/06/18 08/07/20 Rx Clopidogrel [Plavix] 75 mg PO DAILY #30 tab 12/06/18 08/07/20 Rx Pantoprazole [Protonix] 40 mg PO BID 04/27/19 08/07/20 History Semaglutide [Ozempic] 0.5 mg SQ MO 11/19/19 08/07/20 History Apixaban [Eliquis] 5 mg PO BID #180 tab 11/21/19 08/07/20 Rx Sertraline [Zoloft] 50 mg PO DAILY #30 tab 11/22/19 08/07/20 Rx traZODone HCL [Desyrel] 50 mg PO HS #10 tab 11/22/19 08/07/20 Rx ALPRAZolam [Xanax] 0.5 mg PO DAILY PRN 06/16/20 08/07/20 History Albuterol Sulfate [Ventolin HFA] 1 - 2 puff INHALATION RT-QID PRN 06/16/20 08/07/20 History hydrALAZINE HCL [Apresoline] 100 mg PO DAILY 06/16/20 08/07/20 History Albuterol Nebulized [Ventolin 2.5 mg INHALATION RT-QID PRN 08/07/20 08/07/20 History Nebulized] Budesonide/Formoterol Fumarate 2 puff INHALATION RT-BID 08/07/20 08/07/20 History [Symbicort 160-4.5 Mcg Inhaler] Fluticasone Nasal [place] [Flonase 1 spray EA NOSTRIL DAILY 08/07/20 08/07/20 History Nasal [place]] Furosemide [Lasix] 40 mg PO MOFR 08/07/20 08/07/20 History Insulin Glargine,Hum.rec.anlog 40 unit SQ HS 08/07/20 08/07/20 History [Lantus Solostar] Montelukast [Singulair] 10 mg PO DAILY 08/07/20 08/07/20 History Multivitamins, Thera [Multivitamin 1 tab PO DAILY 08/07/20 08/07/20 History (formulary)] Nitroglycerin [Nitro-Dur 0.4MG/Hr 1 patch TRANSDERM DAILY 08/07/20 08/07/20 History Patch] Potassium Chloride ER [K-Dur 20] 20 meq PO DAILY 08/07/20 08/07/20 History Spironolactone [Aldactone] 50 mg PO DAILY 08/07/20 08/07/20 History Allergies Allergy/AdvReac Type Severity Reaction Status Date / Time cephalexin [From Keflex] Allergy Rash/Hives Verified 08/07/20 16:26 codeine Allergy Rash/Hives Verified 08/07/20 16:26 Iodine and Iodide Containing Allergy Rash/Hives Verified 08/07/20 16:26 Produc Penicillins Allergy Rash/Hives Verified 08/07/20 16:26 tramadol Allergy Rash/Hives Verified 08/07/20 16:26 Physical Exam Vitals: Vital Signs Temp Pulse Pulse Resp BP BP Pulse Ox 08/08/20 12:00 83 18 166/100 99 08/08/20 08:00 97.3 F L 95 18 145/92 96 08/08/20 04:00 97.7 F 87 16 153/81 100 08/08/20 00:00 97.7 F 83 18 140/83 95 08/07/20 20:35 179/97 08/07/20 20:30 97.8 F 91 18 189/100 98 08/07/20 20:08 98.0 F 92 18 154/94 98 08/07/20 17:27 72 18 194/110 97 08/07/20 13:37 97.8 F 98 18 187/107 99 Intake and Output 08/07/20 08/08/20 08/08/20 22:59 06:59 14:59 Intake Total 480 180 Balance 480 180 Intake: Oral 480 180 Other: Voiding Method Toilet Toilet Toilet # Voids 1 1 Weight 94.347 kg 99.5 kg Results 08/07/20 14:30 08/07/20 14:30 Cardiac Enzymes 08/07/20 08/07/20 08/07/20 Range/Units 14:30 14:30 18:05 AST 32 (14-36) U/L Troponin I 0.033 0.036 H* (0.000-0.034) ng/mL 08/07/20 Range/Units 20:54 AST (14-36) U/L Troponin I 0.029 (0.000-0.034) ng/mL Coagulation 08/07/20 Range/Units 14:30 PT 10.7 (9.0-12.0) sec APTT 20.3 L (22.0-30.0) sec CBC 08/07/20 Range/Units 14:30 WBC 6.1 (3.8-10.6) k/uL RBC 4.19 (3.80-5.40) m/uL Hgb 11.0 L D (11.4-16.0) gm/dL Hct 34.4 (34.0-46.0) % Plt Count 203 (150-450) k/uL Comprehensive Metabolic Panel 08/07/20 Range/Units 14:30 Sodium 137 (137-145) mmol/L Potassium 4.7 (3.5-5.1) mmol/L Chloride 108 H (98-107) mmol/L Carbon Dioxide 23 (22-30) mmol/L BUN 20 H (7-17) mg/dL Creatinine 0.82 (0.52-1.04) mg/dL Glucose 138 H (74-99) mg/dL Calcium 8.9 (8.4-10.2) mg/dL AST 32 (14-36) U/L ALT 36 H (4-34) U/L Alkaline Phosphatase 49 (38-126) U/L Total Protein 6.0 L (6.3-8.2) g/dL Albumin 3.5 (3.5-5.0) g/dL Current Medications Generic Name Dose Route Start Last Admin Trade Name Freq PRN Reason Stop Dose Admin Acetaminophen 650 mg 08/07/20 15:56 Acetaminophen Tab 325 Mg Tab PO Q6HR PRN Mild Pain or Fever > 100.5 Alprazolam 0.5 mg 08/07/20 18:40 Alprazolam 0.5 Mg Tab PO DAILY PRN Moderate Anxiety Amlodipine Besylate 10 mg 08/08/20 12:45 Amlodipine 10 Mg Tab PO DAILY [facility] Apixaban 5 mg 08/07/20 21:00 08/08/20 08:41 Apixaban 5 Mg Tab PO 5 mg BID [facility] Administration Atorvastatin Calcium 80 mg 08/07/20 21:00 08/07/20 20:50 Atorvastatin 80 Mg Tab PO 80 mg HS [facility] Administration Budesonide/Formoterol Fumarate 2 puff 08/07/20 20:00 08/08/20 08:08 Symbicort 160-4.5 Mcg Inhaler INHALATION 2 puff RT-BID [facility] Administration Carvedilol 25 mg 08/07/20 19:00 08/07/20 20:06 Carvedilol 12.5 Mg Tab PO 25 mg BID-W/MEALS [facility] Administration Clopidogrel Bisulfate 75 mg 08/08/20 09:00 08/08/20 08:41 Clopidogrel 75 Mg Tab PO 75 mg DAILY [facility] Administration Ferrous Sulfate 325 mg 08/08/20 09:00 08/08/20 08:41 Ferrous Sulfate 325 Mg Tab PO 325 mg DAILY [facility] Administration Fluticasone Propionate 1 spray 08/08/20 09:00 08/08/20 08:43 Fluticasone 50mcg/[place] Nasal 16gm EA NOSTRIL Not Given DAILY [facility] Furosemide 40 mg 08/08/20 12:45 Furosemide 40 Mg Tab PO DAILY [facility] Hydralazine HCl 100 mg 08/07/20 22:00 08/08/20 08:41 Hydralazine Hcl 50 Mg Tab PO 100 mg TID [facility] Administration Insulin Detemir 40 unit 08/07/20 21:00 08/07/20 20:50 Insulin Detemir (Levemir) 100 Unit/Ml Syr SQ 40 unit HS [facility] Administration Montelukast Sodium 10 mg 08/08/20 09:00 08/08/20 08:41 Montelukast 10 Mg Tab PO 10 mg DAILY [facility] Administration Naloxone HCl 0.2 mg 08/07/20 15:56 Naloxone 0.4 Mg/Ml 1 Ml Vial IV Q2M PRN Opioid Reversal Nitroglycerin 1 patch 08/08/20 09:00 08/08/20 08:41 Nitroglycerin 0.4mg/Hr Patch TRANSDERM 1 patch DAILY [facility] Administration Patient's Own Med ( 0.5 mg 08/10/20 12:00 Semaglutide [Ozempic SQ ] 0.25 Mg/0.2 Ml Pen MO [facility] .Injctr) Patient's Own ( 2.5 mg 08/07/20 18:56 Albuterol Nebulized INHALATION [Ventolin Nebulized] RT-QID PRN 2.5 Mg/3 Ml Ml) Shortness Of Breath Pantoprazole Sodium 40 mg 08/07/20 21:00 08/08/20 08:41 Pantoprazole 40 Mg Tablet PO 40 mg BID [facility] Administration Potassium Chloride 20 meq 08/08/20 09:00 08/08/20 08:41 Potassium Chloride Er 20 Meq Tab.Er PO 20 meq DAILY [facility] Administration Sertraline HCl 50 mg 08/08/20 09:00 08/08/20 08:41 Sertraline 50 Mg Tab PO 50 mg DAILY [facility] Administration Spironolactone 50 mg 08/08/20 09:00 08/08/20 08:43 Spironolactone 25 Mg Tab PO 50 mg DAILY [facility] Administration Trazodone HCl 50 mg 08/07/20 21:00 08/07/20 20:50 Trazodone Hcl 50 Mg Tab PO 50 mg HS [facility] Administration Intake and Output 08/07/20 08/08/20 08/08/20 22:59 06:59 14:59 Intake Total 480 180 Balance 480 180 Intake: Oral 480 180 Other: Voiding Method Toilet Toilet Toilet # Voids 1 1 Weight 94.347 kg 99.5 kg 08/07/20 14:30 08/07/20 14:30
[2020-08-08] MEDS: amLODIPine 10 MG TAB PO SCH (12:53)
[2020-08-08] MEDS: FUROSEMIDE 40 MG TAB PO SCH (12:54)
--- NOTE | 2020-08-08 16:38 | HP ---
HISTORY AND PHYSICAL CHIEF COMPLAINT: Acute onset of shortness of breath. HISTORY OF PRESENT ILLNESS: This is another admission for this 39-year-old white female who has severe and advanced coronary artery disease with atherosclerotic cardiomyopathy. She also has insulin- dependent diabetes mellitus. Her blood pressure is frequently extremely high. She apparently has had some increased shortness of breath over the last 2 or 3 days and noticed her weight going up as well as edema and she came to the emergency room. There she was felt to be in congestive heart failure. She had already been increasing her Lasix, but her shortness of breath advanced. REVIEW OF SYSTEMS: She has had no focal neurologic deficits, change in vision or hearing, cough, hemoptysis, sputum production, fever, chills, abdominal pain, vomiting and diarrhea, renal failure, dysuria, frequency, urgency, incontinence, etc. Past medical history, family history and personal and social histories are all otherwise essentially unchanged from her recent admissions. She does take good care of herself. She is ALLERGIC TRAMADOL, IODINE, CEPHALOSPORINS, and PENICILLIN. MEDICATIONS: She is on numerous medications including trazodone 50 mg q.h.s., Lantus 40 units once a day, hydralazine 100 mg once a day, furosemide 40 mg twice a week, albuterol HFA, Xanax 0.5 t.i.d., potassium 20 mEq once a day, Zoloft 50 mg once a day, Eliquis 5 mg twice a day, Nitro-Dur patch 0.4 mg once a day, pantoprazole 40 mg once a day, montelukast 10 mg once a day, Feosol 325 once a day, carvedilol 25 twice a day, Ozempic 0.5 once a week, clopidogrel 75 once a day, atorvastatin 80 mg q.h.s., and albuterol. She has had at least 3 previous myocardial infarctions. She also had childhood leukemia. She has had a history of kidney stones. She has had a prior cardiac cath with stenting. She used to smoke but does not any longer. PHYSICAL EXAMINATION: Blood pressure is 166/100. Pulse is 83, respirations are 30 and she is afebrile. In general, she appeared to be overweight, in no acute distress. Skin color is normal. Skin is warm, dry. Lymph nodes are not enlarged. Head, ears, eyes, nose, mouth and throat were normal. Neck veins not distended. Thyroid not enlarged. Chest is clear. Cardiac exam is normal. Abdomen is soft and nontender. Extremities are normal. Neurologically she is intact. IMPRESSION: She is admitted to the hospital with diagnoses of: 1. Acute congestive heart failure. 2. Chronic congestive heart failure. 3. Hypertension. 4. Atherosclerotic cardiomyopathy. 5. Insulin-dependent diabetes mellitus. 6. History of leukemia as a youngster. PLAN: 1. Bedrest. 2. IV fluids. 3. Diuresis. 4. Repeat troponins. 5. Echocardiogram. MMODL / IJN: [id number] /
--- NOTE | 2020-08-08 16:41 | PN ---
PROGRESS NOTE DATE OF SERVICE: 08/08/2020 CHIEF COMPLAINT: Acute congestive heart failure with cardiomyopathy. HISTORY OF PRESENT ILLNESS: This lady is feeling better. Breathing is much improved. She has had no further shortness of breath or chest pain. PHYSICAL EXAMINATION: Her chest is quite clear. There are no rales or rhonchi. Cardiac exam sounds normal. No murmurs or extra sounds. Abdomen is soft, nontender. IMPRESSION: 1. Acute congestive heart failure. 2. Chronic congestive heart failure. 3. Atherosclerotic cardiomyopathy. 4. Uncontrolled hypertension. 5. Insulin-dependent diabetes. PLAN: 1. Await direction from Cardiology given her elevated troponins. 2. Otherwise, continue to diurese. 3. Probably discharge in the next 24 hours. MMODL / IJN: [id number] /
[2020-08-08 17:21] LABS: Glucose,Whole Blood 143 mg/dL (75-99)
[2020-08-08] MEDS: carvediloL 12.5 MG TAB PO SCH (17:55)
[2020-08-08] MEDS: ATORVASTATIN 80 MG TAB PO SCH (20:08)
[2020-08-08] MEDS: traZODone HCL 50 MG TAB PO SCH (20:09)
[2020-08-08 20:28] LABS: Glucose,Whole Blood 147 mg/dL (75-99)
[2020-08-08] MEDS: INSULIN DETEMIR (LEVEMIR) 100 UNIT/ML SYR SQ SCH (20:37)
[2020-08-09 00:28] VITALS: PULSE 88
[2020-08-09 06:12] LABS: Glucose,Whole Blood 115 mg/dL (75-99)
[2020-08-09] MEDS: carvediloL 12.5 MG TAB PO SCH (06:46)
[2020-08-09] MEDS: SYMBICORT 160-4.5 MCG INHALER INHALATION SCH (07:11)
[2020-08-09 07:37] VITALS: BP 134/61; RESP 20; TEMP 98.5
[2020-08-09] MEDS: PANTOPRAZOLE 40 MG TABLET PO SCH (08:25)
[2020-08-09] MEDS: CLOPIDOGREL 75 MG TAB PO SCH (08:25)
[2020-08-09] MEDS: FLUTICASONE 50MCG/SPRAY NASAL 16GM EA NOSTRIL SCH (08:25)
[2020-08-09] MEDS: SPIRONOLACTONE 25 MG TAB PO SCH (08:25)
[2020-08-09] MEDS: POTASSIUM CHLORIDE ER 20 MEQ TAB.ER PO SCH (08:25)
[2020-08-09] MEDS: SERTRALINE 50 MG TAB PO SCH (08:25)
[2020-08-09] MEDS: FUROSEMIDE 40 MG TAB PO SCH (08:26)
[2020-08-09] MEDS: APIXABAN 5 MG TAB PO SCH (08:26)
[2020-08-09] MEDS: MONTELUKAST 10 MG TAB PO SCH (08:26)
[2020-08-09] MEDS: FERROUS SULFATE 325 MG TAB PO SCH (08:26)
[2020-08-09] MEDS: hydrALAZINE HCL 50 MG TAB PO SCH (08:26)
[2020-08-09] MEDS: amLODIPine 10 MG TAB PO SCH (08:26)
[2020-08-09] MEDS: NITROGLYCERIN 0.4MG/HR PATCH TRANSDERM SCH (08:28)
--- NOTE | 2020-08-09 11:22 | P.PN ---
Subjective Progress Note Date: 08/09/20 HISTORY OF PRESENT ILLNESS: This is a 39-year-old female with a past medical history significant for coronary artery disease with previous stenting to the LAD, hypertension, hyperlipidemia, congestive heart failure, and LV thrombus on anticoagulation with Eliquis. Patient follows in the office with Dr. Davila. We have been asked to see the patient in consultation for congestive heart failure. Patient examined at the bedside. Patient states she has noticed increasing shortness of breath over the last week. She also reports increased lower extremity edema. Patient states she also takes her blood pressure daily and noticed it has been elevated over the last week. She states she has been compliant with her medications. She usually takes Lasix every Monday and Monday. She states that over the past week she was taking it daily due to her swelling and shortness of breath. She denies any increased salt intake. At the time of examination this morning, patient denies chest pain or pressure. She states her shortness of breath has significantly improved and is now able to ambulate in her room without dyspnea. Patient's hydralazine was increased per internal medicine and patients blood pressures are now in the 140s systolic, down from 180s to 190s EKG reveals sinus mechanism with no signs of acute ischemia Chest xray cardiomegaly with pulmonary venous congestion. No evidence for overt failure at this time Laboratory data: WBC 6.1. Hemoglobin 11.0. Platelet count 203. Sodium 137. Potassium 4.7. BUN 20. Creatinine 0.82. BNP 910. Troponin 0.033. 0.036. 0.029. Current home cardiac medications include hydralazine 100 mg daily, carvedilol 25 mg twice a day, Aldactone 50 mg daily, Lasix 40 mg on Monday and Monday, Plavix 75 mg daily, Lipitor 80 mg daily, and Eliquis 5 mg twice a day Most recent echocardiogram obtained in May 2020 revealed ejection fraction 45- 50% Cardiac catheterization history: Patient underwent cardiac catheterization in April 2019 with stent placement to the LAD. She also underwent cardiac catheterization in November 2019 revealing patent stent to the LAD and circumflex 08/09/2020 Patient examined this morning at the bedside. Patient states her shortness of breath has resolved. She reports improvement in lower extremity edema. She denies chest pain or pressure. Blood pressure this morning 134/61. Heart rate in the 80s. She is on room air with oxygen saturations greater than 92%. She is hoping to be discharged home today. PHYSICAL EXAM: VITAL SIGNS: Reviewed. GENERAL: Well-developed in no acute distress. HEENT: Head is normocephalic. Pupils are equal, round. Sclerae anicteric. Mucous membranes of the mouth are moist. Neck supple. No JVD or thyromegaly LUNGS: Respirations even and unlabored. Lungs essentially clear to auscultation bilaterally. HEART: Regular rate and rhythm. S1 and S2 heard. ABDOMEN: Soft. Nondistended. Nontender. EXTREMITIES: Normal range of motion. No clubbing or cyanosis. Peripheral pulses intact. Trace bilateral lower extremity edema NEUROLOGIC: Awake and alert. Oriented x 3. ASSESSMENT: Acute exacerbation of chronic diastolic heart failure, ejection fraction 45-50% Hypertension, uncontrolled Hyperlipidemia Coronary artery disease with previous PCI to LAD and circumflex History of LV thrombus, on anticoagulation with Eliquis Morbid obesity: BMI 40.0 Anxiety Depression Bipolar disorder Schizophrenia PLAN: Continue current cardiac medications Patient is stable for discharge from a cardiac standpoint She is to follow up outpatient with Dr. Davila Nurse practitioner note has been reviewed by physician. Signing provider agrees with the documented findings, assessment, and plan of care. Objective - Vital Signs Vital signs: Vital Signs Temp 98.5 F 08/09/20 07:36 Pulse 88 08/09/20 07:36 Resp 20 08/09/20 07:36 BP 134/61 08/09/20 07:36 Pulse Ox 98 08/09/20 07:36 Intake & Output 08/08/20 08/09/20 08/09/20 18:59 06:59 18:59 Intake Total 960 250 Balance 960 250 Weight 99.5 kg Intake: Oral 960 250 Other: Voiding Method Toilet Toilet # Voids 8 1 - Labs CBC & Chem 7: 08/07/20 14:30 08/07/20 14:30 Labs: Abnormal Lab Results - Last 24 Hours (Table) 08/08/20 08/08/20 08/08/20 Range/Units 12:09 17:02 20:26 POC Glucose (mg/dL) 116 H 143 H 147 H (75-99) mg/dL 08/09/20 Range/Units 06:10 POC Glucose (mg/dL) 115 H (75-99) mg/dL
[2020-08-10] MEDS ORDERED: metOLazone 2.5 MG TAB PO SCH (09:00)
[2020-08-10] MEDS ORDERED: FUROSEMIDE 40 MG TAB PO SCH (09:00)
[2020-08-10] MEDS ORDERED: SEMAGLUTIDE 0.25 MG/0.2 ML SQ SCH (12:00)
--- NOTE | 2020-08-10 18:56 | DS ---
DISCHARGE SUMMARY CHIEF COMPLAINT: Shortness of breath. HISTORY OF PRESENT ILLNESS AND PHYSICAL EXAMINATION: Details of this lady's history and physical can be found in the initial workup. LABORATORY STUDIES: While she was in the hospital, she had laboratory studies, details of which can be found in the laboratory section of her chart. COURSE IN THE HOSPITAL: After admission she was placed on bedrest, started on intravenous fluids, and she was diuresed and did well. Shortness of breath improved dramatically over 2 days. She was seen by Cardiology, who felt that no further intervention was necessary. Her diuretic management was increased and she was doing well. It was felt that she could go home on August 09. She will follow up in the office in several days. FINAL DIAGNOSES: 1. Acute on chronic diastolic congestive heart failure. 2. Cardiomyopathy. 3. Insulin-dependent diabetes mellitus. 4. Uncontrolled hypertension. OPERATIONS: None. CONSULTATION: Cardiology. She is improved. MMODL / IJN: [id number] /
== END 2020-08-09 11:11 | disposition home or self-care (01) ==
LOC: EC 13:04 → 3SCARD 16:27
PROVIDERS: ADMIT Family Medicine; ATTEND Family Medicine
DX: I50.33 Acute on chronic diastolic (congestive) heart failure (principal); I11.0 Hypertensive heart disease with heart failure; I42.9 Cardiomyopathy, unspecified; I25.10 Atherosclerotic heart disease of native coronary artery without angina pectoris; I48.91 Unspecified atrial fibrillation; E78.5 Hyperlipidemia, unspecified; I25.2 Old myocardial infarction; F41.9 Anxiety disorder, unspecified; E11.9 Type 2 diabetes mellitus without complications; Z20.822 Contact with and (suspected) exposure to COVID-19; J45.909 Unspecified asthma, uncomplicated; F20.9 Schizophrenia, unspecified; F31.9 Bipolar disorder, unspecified; E66.01 Morbid (severe) obesity due to excess calories; Z68.41 Body mass index [BMI] 40.0-44.9, adult; Z79.4 Long term (current) use of insulin; Z79.51 Long term (current) use of inhaled steroids; Z79.899 Other long term (current) drug therapy; Z79.02 Long term (current) use of antithrombotics/antiplatelets; Z79.01 Long term (current) use of anticoagulants; Z88.5 Allergy status to narcotic agent; Z91.041 Radiographic dye allergy status; Z88.0 Allergy status to penicillin; Z88.1 Allergy status to other antibiotic agents; Z85.6 Personal history of leukemia; Z87.11 Personal history of peptic ulcer disease; Z86.711 Personal history of pulmonary embolism; Z87.442 Personal history of urinary calculi; Z98.51 Tubal ligation status; Z98.891 History of uterine scar from previous surgery; Z98.61 Coronary angioplasty status; Z87.891 Personal history of nicotine dependence; Z96.651 Presence of right artificial knee joint; Z82.49 Family history of ischemic heart disease and other diseases of the circulatory system
CPT/HCPCS: 96374; 99285; 36415; 94640 ×2; 93005; 83880; 80053; 83605; 83735; 84484; 85025; 85610; 85730; 87635; 71046; G0378 ×3; J1940

== ENCOUNTER 2020-10-05 09:46 | Inpatient (IN) | payer MEDICARE, OTHER ==
[2020-10-05] MEDS ORDERED: NITROGLYCERIN SL TABS 0.4 MG TAB SUBLINGUAL STA ×3 (10:07)
[2020-10-05] MEDS ORDERED: ASPIRIN 81 MG PO STA (10:07)
--- NOTE | 2020-10-05 10:11 | ED ---
General Adult HPI - General Chief complaint: Chest Pain Stated complaint: Chest pain Time Seen by Provider: 10/05/20 09:58 Source: patient, family, RN notes reviewed Mode of arrival: wheelchair Limitations: no limitations - History of Present Illness Initial comments: Patient is a pleasant 39-year-old female presenting to the emergency Department with complaints of chest discomfort. Onset of symptoms was yesterday. Symptoms improved with aspirin and nitroglycerin did return again this morning. Discomfort is currently 8/10. Discomfort feels like tightness with some radiation to left arm. Patient does have some associated dyspnea. Patient does have edema which she has previously had. No Pain. No nausea or diaphoresis. - Related Data Home Medications Medication Instructions Recorded Confirmed Ferrous Sulfate [Iron] 325 mg PO DAILY 07/11/18 10/05/20 carvediloL [Carvedilol] 25 mg PO BID 07/11/18 10/05/20 Pantoprazole [Protonix] 40 mg PO BID 04/27/19 10/05/20 Semaglutide [Ozempic] 0.5 mg SQ MO 11/19/19 10/05/20 ALPRAZolam [Xanax] 0.5 mg PO DAILY PRN 06/16/20 10/05/20 Albuterol Sulfate [Ventolin HFA] 1 - 2 puff INHALATION RT-QID PRN 06/16/20 10/05/20 Albuterol Nebulized [Ventolin 2.5 mg INHALATION RT-QID PRN 08/07/20 10/05/20 Nebulized] Budesonide/Formoterol Fumarate 2 puff INHALATION RT-BID 08/07/20 10/05/20 [Symbicort 160-4.5 Mcg Inhaler] Fluticasone Nasal [place] [Flonase 1 spray EA NOSTRIL DAILY PRN 08/07/20 10/05/20 Nasal [place]] Insulin Glargine,Hum.rec.anlog 40 unit SQ HS 08/07/20 10/05/20 [Lantus Solostar] Montelukast [Singulair] 10 mg PO DAILY 08/07/20 10/05/20 Multivitamins, Thera [Multivitamin 1 tab PO DAILY 08/07/20 10/05/20 (formulary)] Nitroglycerin [Nitro-Dur 0.4MG/Hr 1 patch TRANSDERM DAILY 08/07/20 10/05/20 Patch] Spironolactone [Aldactone] 25 mg PO DAILY 08/07/20 10/05/20 Ezetimibe [Zetia] 10 mg PO DAILY 10/05/20 10/05/20 Potassium Chloride 20 meq PO DAILY 10/05/20 10/05/20 traZODone HCL [Desyrel] 50 mg PO HS PRN 10/05/20 10/05/20 Previous Rx's Medication Instructions Recorded Atorvastatin [Lipitor] 80 mg PO HS #30 tab 12/06/18 Clopidogrel [Plavix] 75 mg PO DAILY #30 tab 12/06/18 Apixaban [Eliquis] 5 mg PO BID #180 tab 11/21/19 Sertraline [Zoloft] 50 mg PO DAILY #30 tab 11/22/19 Furosemide [Lasix] 40 mg PO BID #60 tab 08/09/20 amLODIPine [Norvasc] 10 mg PO DAILY #30 tab 08/09/20 hydrALAZINE HCL [Apresoline] 100 mg PO TID #90 tab 08/09/20 metOLazone [Zaroxolyn] 2.5 mg PO DAILY #30 tab 08/09/20 Allergies Allergy/AdvReac Type Severity Reaction Status Date / Time cephalexin [From Keflex] Allergy Rash/Hives Verified 10/05/20 11:04 codeine Allergy Rash/Hives Verified 10/05/20 11:04 Iodine and Iodide Containing Allergy Rash/Hives Verified 10/05/20 11:04 Produc Penicillins Allergy Rash/Hives Verified 10/05/20 11:04 tramadol Allergy Rash/Hives Verified 10/05/20 11:04 Review of Systems ROS Statement: Those systems with pertinent positive or pertinent negative responses have been documented in the HPI. ROS Other: All systems not noted in ROS Statement are negative. Constitutional: Denies: fever Eyes: Denies: eye pain ENT: Denies: ear pain Respiratory: Denies: cough Cardiovascular: Reports: chest pain, edema Endocrine: Denies: fatigue Gastrointestinal: Denies: abdominal pain Genitourinary: Denies: dysuria Musculoskeletal: Denies: back pain Skin: Denies: rash Past Medical History Past Medical History: Atrial Fibrillation, Asthma, Coronary Artery Disease (CAD), Diabetes Mellitus, GERD/Reflux, Hyperlipidemia, Hypertension, Myocardial Infarction ([place]), Pulmonary Embolus ([place]) Additional Past Medical History / Comment(s): peptic ulcer, gall stones, kidney stone, childhood leukemia Last Myocardial Infarction Date:: 05/01/2019 History of Any Multi-Drug Resistant Organisms: None Reported Past Surgical History: Section, Heart Catheterization With Stent, Joint Replacement, Tonsillectomy, Tubal Ligation Additional Past Surgical History / Comment(s): 4 stents, partial right knee replacement Past Anesthesia/Blood Transfusion Reactions: No Reported Reaction Date of Last Stent Placement:: 08/02/18 Past Psychological History: Anxiety, Bipolar, Depression, Schizophrenia Smoking Status: Never smoker Past Alcohol Use History: None Reported Past Drug Use History: None Reported - Past Family History Father Family Medical History: Hyperlipidemia, Hypertension Additional Family Medical History / Comment(s): pins in knee, heart stents x 4 General Exam Limitations: no limitations General appearance: alert, in no apparent distress Head exam: Present: normocephalic Eye exam: Present: normal appearance Neck exam: Present: normal inspection Respiratory exam: Present: normal lung sounds bilaterally. Absent: chest wall tenderness Cardiovascular Exam: Present: regular rate, normal rhythm Expanded Peripheral pulses: 2+: Radial (R), Radial (L), Dorsalis Pedis (R), Dorsalis Pedis (L) GI/Abdominal exam: Present: soft. Absent: tenderness Extremities exam: Present: pedal edema. Absent: calf tenderness Neurological exam: Present: alert Psychiatric exam: Present: normal affect, normal mood Skin exam: Present: normal color Course Vital Signs 10/05/20 10/05/20 10/05/20 09:53 10:18 10:46 Temperature 98.1 F Pulse Rate 91 93 90 Respiratory 20 18 18 Rate Blood Pressure 143/84 133/79 115/50 O2 Sat by Pulse 99 98 98 Oximetry 10/05/20 10/05/20 11:26 11:28 Temperature 98.5 F Pulse Rate 86 Respiratory 18 Rate Blood Pressure 128/77 O2 Sat by Pulse 97 Oximetry EKG Findings - EKG Comments: EKG Findings:: Normal sinus rhythm with a rate of 94. WA 132. QRS 84. QT 372. QTC 465. Normal axis. Normal QRS. No acute ST change. Medical Decision Making - Medical Decision Making Patient reevaluated and resting comfortably in bed. Discomfort is 3/10. Patient states she does normally have some chronic discomfort somewhat similar to this. Patient is updated on results and plan. Dr. Sena has been paged for admission. Card ALLERGY will be placed on consult. - Lab Data Result diagrams: 10/05/20 10:12 10/05/20 10:12 Lab Results 10/05/20 10/05/20 10/05/20 Range/Units 10:12 10:12 10:12 WBC 5.3 (3.8-10.6) k/uL RBC 4.71 (3.80-5.40) m/uL Hgb 12.2 (11.4-16.0) gm/dL Hct 36.6 (34.0-46.0) % MCV 77.7 L (80.0-100.0) fL MCH 25.8 (25.0-35.0) pg MCHC 33.2 (31.0-37.0) g/dL RDW 13.9 (11.5-15.5) % Plt Count 211 (150-450) k/uL MPV 8.1 Neutrophils % 69 % Lymphocytes % 21 % Monocytes % 5 % Eosinophils % 2 % Basophils % 0 % Neutrophils # 3.6 (1.3-7.7) k/uL Lymphocytes # 1.1 (1.0-4.8) k/uL Monocytes # 0.3 (0-1.0) k/uL Eosinophils # 0.1 (0-0.7) k/uL Basophils # 0.0 (0-0.2) k/uL Hypochromasia Moderate PT 11.1 (9.0-12.0) sec INR 1.0 (<1.2) APTT 23.1 (22.0-30.0) sec D-Dimer 0.33 (<0.60) mg/L FEU Sodium 138 (137-145) mmol/L Potassium 4.6 (3.5-5.1) mmol/L Chloride 108 H (98-107) mmol/L Carbon Dioxide 23 (22-30) mmol/L Anion Gap 7 mmol/L BUN 14 (7-17) mg/dL Creatinine 0.70 (0.52-1.04) mg/dL Est GFR (CKD-EPI)AfAm >90 (>60 ml/min/1.73 sqM) Est GFR (CKD-EPI)NonAf >90 (>60 ml/min/1.73 sqM) Glucose 186 H (74-99) mg/dL Calcium 8.7 (8.4-10.2) mg/dL Magnesium 1.7 (1.6-2.3) mg/dL Total Bilirubin 0.7 (0.2-1.3) mg/dL AST 34 (14-36) U/L ALT 30 (4-34) U/L Alkaline Phosphatase 46 (38-126) U/L Troponin I (0.000-0.034) ng/mL NT-Pro-B Natriuret Pep pg/mL Total Protein 6.1 L (6.3-8.2) g/dL Albumin 3.6 (3.5-5.0) g/dL 10/05/20 10/05/20 Range/Units 10:12 10:12 WBC (3.8-10.6) k/uL RBC (3.80-5.40) m/uL Hgb (11.4-16.0) gm/dL Hct (34.0-46.0) % MCV (80.0-100.0) fL MCH (25.0-35.0) pg MCHC (31.0-37.0) g/dL RDW (11.5-15.5) % Plt Count (150-450) k/uL MPV Neutrophils % % Lymphocytes % % Monocytes % % Eosinophils % % Basophils % % Neutrophils # (1.3-7.7) k/uL Lymphocytes # (1.0-4.8) k/uL Monocytes # (0-1.0) k/uL Eosinophils # (0-0.7) k/uL Basophils # (0-0.2) k/uL Hypochromasia PT (9.0-12.0) sec INR (<1.2) APTT (22.0-30.0) sec D-Dimer (<0.60) mg/L FEU Sodium (137-145) mmol/L Potassium (3.5-5.1) mmol/L Chloride (98-107) mmol/L Carbon Dioxide (22-30) mmol/L Anion Gap mmol/L BUN (7-17) mg/dL Creatinine (0.52-1.04) mg/dL Est GFR (CKD-EPI)AfAm (>60 ml/min/1.73 sqM) Est GFR (CKD-EPI)NonAf (>60 ml/min/1.73 sqM) Glucose (74-99) mg/dL Calcium (8.4-10.2) mg/dL Magnesium (1.6-2.3) mg/dL Total Bilirubin (0.2-1.3) mg/dL AST (14-36) U/L ALT (4-34) U/L Alkaline Phosphatase (38-126) U/L Troponin I 0.112 H* (0.000-0.034) ng/mL NT-Pro-B Natriuret Pep 1220 pg/mL Total Protein (6.3-8.2) g/dL Albumin (3.5-5.0) g/dL - Radiology Data Radiology results: image reviewed (Chest x-ray shows cardiomegaly) Critical Care Time Critical Care Time: Yes Total Critical Care Time: 31 Disposition Clinical Impression: NSTEMI (non-ST elevated myocardial infarction) Disposition: ADMITTED IP TO THIS HOSP Is patient prescribed a controlled substance at d/c from ED?: No Referrals: Odell Sena MD [Primary Care Provider] - 1-2 days Decision Time: 11:46
[2020-10-05 10:33] LABS: ALT 30 U/L (4-34); African American GFR (CKD) >90 (>60 ml/min/1.73 sqM); Albumin 3.6 g/dL (3.5-5.0); Anion Gap 7 mmol/L; Blood Urea Nitrogen 14 mg/dL (7-17); Calcium 8.7 mg/dL (8.4-10.2); Carbon Dioxide 23 mmol/L (22-30); Chloride 108 mmol/L (98-107); Glucose 186 mg/dL (74-99); Non-African American GFR(CKD) >90 (>60 ml/min/1.73 sqM); Sodium 138 mmol/L (137-145); Total Bilirubin 0.7 mg/dL (0.2-1.3); Total Protein 6.1 g/dL (6.3-8.2)
[2020-10-05 10:36] LABS: Partial Thromboplastin Time 23.1 sec (22.0-30.0); Prothrombin Time 11.1 sec (9.0-12.0)
[2020-10-05 10:39] LABS: Basophils % (A) 0 %; Eosinophils # (A) 0.1 k/uL (0-0.7); Eosinophils % (A) 2 %; HCT 36.6 % (34.0-46.0); HGB 12.2 gm/dL (11.4-16.0); Hypochromasia Moderate; Lymphocytes # (A) 1.1 k/uL (1.0-4.8); Lymphocytes % (A) 21 %; MCH 25.8 pg (25.0-35.0); MCHC 33.2 g/dL (31.0-37.0); MCV 77.7 fL (80.0-100.0); Mean Platelet Volume 8.1; Monocytes # (A) 0.3 k/uL (0-1.0); Monocytes % (A) 5 %; Neutrophils # (A) 3.6 k/uL (1.3-7.7); Neutrophils % (A) 69 %; Platelet Count 211 k/uL (150-450); RBC 4.71 m/uL (3.80-5.40); RDW 13.9 % (11.5-15.5); WBC 5.3 k/uL (3.8-10.6)
--- NOTE | 2020-10-05 10:52 | XR ---
EXAMINATION TYPE: XR chest 2V DATE OF EXAM: 10/05/2020 COMPARISON: 08/07/2020 INDICATION: Chest pain or palpitations TECHNIQUE: Frontal and lateral views of the chest are obtained. FINDINGS: The heart size is enlarged. The pulmonary vasculature is normal. The lungs are clear. IMPRESSION: 1. Cardiomegaly.
[2020-10-05 11:10] LABS: AST 34 U/L (14-36); Alkaline Phosphatase 46 U/L (38-126); Magnesium 1.7 mg/dL (1.6-2.3); Potassium 4.6 mmol/L (3.5-5.1)
[2020-10-05] MEDS ORDERED: HEPARIN SODIUM 1,000 UN/ML (10ML VL) IV ONE (11:47)
[2020-10-05] MEDS ORDERED: NITROGLYCERIN SL TABS 0.4 MG TAB SUBLINGUAL PRN ×2 (11:47→12:41)
[2020-10-05] MEDS ORDERED: HEPARIN SOD,PORK IN 0.45% NACL 25,000 UNIT in 0.45% NACL 1 250ML.BAG IV SCH (12:00)
[2020-10-05] MEDS ORDERED: NITROGLYCERIN OINT 1 INCH/GM PACKET TOPICAL SCH (12:00)
[2020-10-05] MEDS ORDERED: ALPRAZolam 0.5 MG TAB PO PRN ×2 (12:41→14:01)
[2020-10-05] MEDS ORDERED: ALPRAZolam 0.25 MG TAB PO PRN (12:41)
[2020-10-05] MEDS ORDERED: ISOSORBIDE MONONITRATE ER 30 MG TAB.ER.24H PO SCH (12:45)
--- NOTE | 2020-10-05 13:10 | P.CRDCN ---
History of Present Illness Consult date: 10/05/20 History of present illness: HISTORY OF PRESENT ILLNESS: This is a 39-year-old female with a past medical history significant for coronary artery disease with previous stenting, hypertension, hyperlipidemia, congestive heart failure, and LV thrombus on anticoagulation with Eliquis. Patient follows in the office with Dr. Davila. We have been asked to see the patient in consultation for chest pain. Patient examined at the bedside. Patient states over the past week she has noticed increased lower extremity edema. She states she has not had any increased salt intake. She reports gaining a few pounds over the past week. She states she increased her lasix dosing at home without much improvement. She states yesterday she woke up and was having chest pain. She states it started as a dull pain in the middle of her chest and then felt a sharp pain in her left breast. She states the pain radiated down her left arm. She took nitro and 3 aspirin with relief of the pain. She states she had another episode of chest pain this morning so she decided to come to the ER for further evaluation. EKG reveals sinus mechanism with no signs of acute ischemia Chest xray cardiomegaly Laboratory data: WBC 5.3. Hemoglobin 12.2. Platelet count 211. D-dimer 0.33. Sodium 138. Potassium 4.6. BUN 14. Creatinine 0.70. BNP 1220. Troponin 0.112. Current home cardiac medications include Aldactone 25 mg daily, Lipitor 80 mg daily, Zaroxolyn 2.5 mg daily, Lasix 40 mrem twice a day, Zetia 10 mg daily, hydralazine 100 mg 3 times a day, carvedilol 25 mg twice a day, amlodipine 10 mg daily, Plavix 75mg daily, Eliquis 5 mg twice a day Most recent echocardiogram obtained in May 2020 revealed ejection fraction 45- 50% Cardiac catheterization history: April 2019 with stent placement to LAD She also underwent cardiac catheterization in November 2019 revealing patent stent to the LAD and circumflex REVIEW OF SYSTEMS: At the time of my exam: CONSTITUTIONAL: Denies fever or chills. HEENT: Denies blurred vision, vision changes, or eye pain. Denies hemoptysis CARDIOVASCULAR: Denies chest pain. Denies orthopnea. Denies PND. Denies palpitations RESPIRATORY: Denies shortness of breath. GASTROINTESTINAL: Denies abdominal pain. Denies nausea or vomiting. HEMATOLOGIC: Denies bleeding disorders. GENITOURINARY: Denies any blood in urine. SKIN: Denies pruitis. Denies rash. PHYSICAL EXAM: VITAL SIGNS: Reviewed. GENERAL: Well-developed in no acute distress. HEENT: Head is normocephalic. Pupils are equal, round. Sclerae anicteric. Mucous membranes of the mouth are moist. Neck supple. No JVD or thyromegaly LUNGS: Respirations even and unlabored. Lungs clear bilaterally. HEART: Regular rate and rhythm. S1 and S2 heard. ABDOMEN: Soft. Nondistended. Nontender. EXTREMITIES: Normal range of motion. No clubbing or cyanosis. Peripheral pulses intact. 1+ bilateral lower extremity edema NEUROLOGIC: Awake and alert. Oriented x 3. ASSESSMENT: Non-STEMI Acute exacerbation of chronic diastolic heart failure Urinary artery disease with previous PCI to LAD and circumflex History of LV thrombus, on anticoagulation with Eliquis Hypertension Hyperlipidemia Morbid obesity Anxiety Depression Bipolar disorder PLAN: Obtain 2D echo to assess cardiac structure and function Resume home cardiac medications Continue nitrate with Nitro Patch (home medication) Continue IV heparin Hold Eliquis Decrease aspirin to 81mg daily Begin lasix 40mg IV Q12 hours Monitor kidney function Accurate I&O Daily weights Patient to undergo cardiac cath tomorrow with Dr. Everett Further recommendations pending patient course Nurse practitioner note has been reviewed by physician. Signing provider agrees with the documented findings, assessment, and plan of care. Past Medical History Past Medical History: Atrial Fibrillation, Asthma, Coronary Artery Disease (CAD), Diabetes Mellitus, GERD/Reflux, Hyperlipidemia, Hypertension, Myocardial Infarction (SC), Pulmonary Embolus (PE) Additional Past Medical History / Comment(s): peptic ulcer, gall stones, kidney stone, childhood leukemia Last Myocardial Infarction Date:: 05/01/2019 History of Any Multi-Drug Resistant Organisms: None Reported Past Surgical History: Section, Heart Catheterization With Stent, Joint Replacement, Tonsillectomy, Tubal Ligation Additional Past Surgical History / Comment(s): 4 stents, partial right knee replacement Past Anesthesia/Blood Transfusion Reactions: No Reported Reaction Date of Last Stent Placement:: 08/02/18 Past Psychological History: Anxiety, Bipolar, Depression, Schizophrenia Smoking Status: Never smoker Past Alcohol Use History: None Reported Past Drug Use History: None Reported - Past Family History Father Family Medical History: Hyperlipidemia, Hypertension Additional Family Medical History / Comment(s): pins in knee, heart stents x 4 Medications and Allergies Home Medications Medication Instructions Recorded Confirmed Type Ferrous Sulfate [Iron] 325 mg PO DAILY 07/11/18 10/05/20 History carvediloL [Carvedilol] 25 mg PO BID 07/11/18 10/05/20 History Atorvastatin [Lipitor] 80 mg PO HS #30 tab 12/06/18 10/05/20 Rx Clopidogrel [Plavix] 75 mg PO DAILY #30 tab 12/06/18 10/05/20 Rx Pantoprazole [Protonix] 40 mg PO BID 04/27/19 10/05/20 History Semaglutide [Ozempic] 0.5 mg SQ MO 11/19/19 10/05/20 History Apixaban [Eliquis] 5 mg PO BID #180 tab 11/21/19 10/05/20 Rx Sertraline [Zoloft] 50 mg PO DAILY #30 tab 11/22/19 10/05/20 Rx ALPRAZolam [Xanax] 0.5 mg PO DAILY PRN 06/16/20 10/05/20 History Albuterol Sulfate [Ventolin HFA] 1 - 2 puff INHALATION RT-QID PRN 06/16/20 10/05/20 History Albuterol Nebulized [Ventolin 2.5 mg INHALATION RT-QID PRN 08/07/20 10/05/20 History Nebulized] Budesonide/Formoterol Fumarate 2 puff INHALATION RT-BID 08/07/20 10/05/20 History [Symbicort 160-4.5 Mcg Inhaler] Fluticasone Nasal [place] [Flonase 1 spray EA NOSTRIL DAILY PRN 08/07/20 10/05/20 History Nasal [place]] Insulin Glargine,Hum.rec.anlog 40 unit SQ HS 08/07/20 10/05/20 History [Lantus Solostar] Montelukast [Singulair] 10 mg PO DAILY 08/07/20 10/05/20 History Multivitamins, Thera [Multivitamin 1 tab PO DAILY 08/07/20 10/05/20 History (formulary)] Nitroglycerin [Nitro-Dur 0.4MG/Hr 1 patch TRANSDERM DAILY 08/07/20 10/05/20 History Patch] Spironolactone [Aldactone] 25 mg PO DAILY 08/07/20 10/05/20 History Furosemide [Lasix] 40 mg PO BID #60 tab 08/09/20 10/05/20 Rx amLODIPine [Norvasc] 10 mg PO DAILY #30 tab 08/09/20 10/05/20 Rx hydrALAZINE HCL [Apresoline] 100 mg PO TID #90 tab 08/09/20 10/05/20 Rx metOLazone [Zaroxolyn] 2.5 mg PO DAILY #30 tab 08/09/20 10/05/20 Rx Ezetimibe [Zetia] 10 mg PO DAILY 10/05/20 10/05/20 History Potassium Chloride 20 meq PO DAILY 10/05/20 10/05/20 History traZODone HCL [Desyrel] 50 mg PO HS PRN 10/05/20 10/05/20 History Allergies Allergy/AdvReac Type Severity Reaction Status Date / Time cephalexin [From Keflex] Allergy Rash/Hives Verified 10/05/20 11:04 codeine Allergy Rash/Hives Verified 10/05/20 11:04 Iodine and Iodide Containing Allergy Rash/Hives Verified 10/05/20 11:04 Produc Penicillins Allergy Rash/Hives Verified 10/05/20 11:04 tramadol Allergy Rash/Hives Verified 10/05/20 11:04 Physical Exam Vitals: Vital Signs Temp Pulse Resp BP Pulse Ox 10/05/20 12:22 87 18 133/80 98 10/05/20 11:28 128/77 10/05/20 11:26 98.5 F 86 18 97 10/05/20 10:46 90 18 115/50 98 10/05/20 10:18 93 18 133/79 98 10/05/20 09:53 98.1 F 91 20 143/84 99 Intake and Output 10/04/20 10/05/20 10/05/20 22:59 06:59 14:59 Other: Weight 92.533 kg Results 10/05/20 10:12 10/05/20 10:12 Cardiac Enzymes 10/05/20 10/05/20 Range/Units 10:12 10:12 AST 34 (14-36) U/L Troponin I 0.112 H* (0.000-0.034) ng/mL Coagulation 10/05/20 Range/Units 10:12 PT 11.1 (9.0-12.0) sec APTT 23.1 (22.0-30.0) sec CBC 10/05/20 Range/Units 10:12 WBC 5.3 (3.8-10.6) k/uL RBC 4.71 (3.80-5.40) m/uL Hgb 12.2 (11.4-16.0) gm/dL Hct 36.6 (34.0-46.0) % Plt Count 211 (150-450) k/uL Comprehensive Metabolic Panel 10/05/20 Range/Units 10:12 Sodium 138 (137-145) mmol/L Potassium 4.6 (3.5-5.1) mmol/L Chloride 108 H (98-107) mmol/L Carbon Dioxide 23 (22-30) mmol/L BUN 14 (7-17) mg/dL Creatinine 0.70 (0.52-1.04) mg/dL Glucose 186 H (74-99) mg/dL Calcium 8.7 (8.4-10.2) mg/dL AST 34 (14-36) U/L ALT 30 (4-34) U/L Alkaline Phosphatase 46 (38-126) U/L Total Protein 6.1 L (6.3-8.2) g/dL Albumin 3.6 (3.5-5.0) g/dL Current Medications Generic Name Dose Route Start Last Admin Trade Name Freq PRN Reason Stop Dose Admin Alprazolam 0.25 mg 10/05/20 12:41 Alprazolam 0.25 Mg Tab PO Q6HR PRN Mild Anxiety Alprazolam 0.5 mg 10/05/20 12:41 Alprazolam 0.5 Mg Tab PO Q6HR PRN Moderate Anxiety Amlodipine Besylate 10 mg 10/06/20 09:00 Amlodipine 10 Mg Tab PO DAILY [facility] Aspirin 81 mg 10/06/20 09:00 Aspirin 81 Mg PO DAILY [facility] Aspirin 325 mg 10/06/20 07:00 Aspirin 325 Mg Tab PO 10/06/20 07:01 ONCE ONE Atorvastatin Calcium 80 mg 10/05/20 21:00 Atorvastatin 80 Mg Tab PO [facility] Atorvastatin Calcium 80 mg 10/06/20 07:00 Atorvastatin 80 Mg Tab PO 10/06/20 07:01 ONCE ONE Carvedilol 25 mg 10/05/20 17:30 Carvedilol 12.5 Mg Tab PO BID-W/MEALS [facility] Clopidogrel Bisulfate 75 mg 10/06/20 09:00 Clopidogrel 75 Mg Tab PO DAILY [facility] Ezetimibe 10 mg 10/06/20 09:00 Ezetimibe 10 Mg Tab PO DAILY [facility] Furosemide 40 mg 10/05/20 12:45 Furosemide 10 Mg/Ml 4 Ml Vial IV Q12HR [facility] Hydralazine HCl 100 mg 10/05/20 16:00 Hydralazine Hcl 50 Mg Tab PO TID [facility] Heparin Sodium/Sodium Chloride 250 mls @ 10.003 mls/hr 10/05/20 12:00 10/05/20 12:27 25,000 unit/ Sodium Chloride IV 10.81 units/kg/hr .Q24H [facility] 10.003 mls/hr Administration Protocol 10.81 UNITS/KG/HR Heparin Sodium (Porcine) 2,500 250.5 mls @ 250 mls/hr 10/06/20 07:00 unit/ Sodium Chloride IRRIGATION 10/06/20 23:00 ONCE PRN INTRA-OP Heparin Sodium (Porcine) 10, 1,001 mls @ 999 mls/hr 10/06/20 07:00 000 unit/ Sodium Chloride IRRIGATION 10/06/20 23:00 ONCE PRN INTRA-OP Sodium Chloride 1,000 ml/ IV 1,000 mls @ 92.533 mls/hr 10/05/20 23:00 Solution IV 10/06/20 09:48 .[id number] ONE 1 ML/KG/HR Isosorbide Mononitrate 30 mg 10/05/20 12:45 Isosorbide Mononitrate Er 30 Mg Tab.Er.24h PO DAILY [facility] Metolazone 2.5 mg 10/06/20 09:00 Metolazone 2.5 Mg Tab PO DAILY [facility] Nitroglycerin 0.4 mg 10/05/20 11:47 Nitroglycerin Sl Tabs 0.4 Mg Tab SUBLINGUAL Q5M PRN Chest Pain Potassium Chloride 20 meq 10/06/20 09:00 Potassium Chloride Er 20 Meq Tab.Er PO DAILY [facility] Spironolactone 25 mg 10/06/20 09:00 Spironolactone 25 Mg Tab PO DAILY [facility] Intake and Output 10/04/20 10/05/20 10/05/20 22:59 06:59 14:59 Other: Weight 92.533 kg Patient Weight 10/06/20 06:59 Weight 92.533 kg 10/05/20 10:12 10/05/20 10:12
[2020-10-05] MEDS: FUROSEMIDE 10 MG/ML 4 ML VIAL IV SCH ×2 (13:33→21:12)
[2020-10-05] MEDS ORDERED: traZODone HCL 50 MG TAB PO PRN (14:01)
[2020-10-05] MEDS ORDERED: FLUTICASONE 50MCG/SPRAY NASAL 16GM EA NOSTRIL PRN (14:01)
[2020-10-05] MEDS ORDERED: FUROSEMIDE 40 MG TAB PO SCH (16:00)
[2020-10-05 17:16] LABS: Glucose,Whole Blood 173 mg/dL (75-99)
[2020-10-05] MEDS: carvediloL 12.5 MG TAB PO SCH (17:21)
[2020-10-05] MEDS: hydrALAZINE HCL 50 MG TAB PO SCH ×2 (17:21→21:07)
--- NOTE | 2020-10-05 17:57 | ECHOF ---
Referral Reason:LV function, NSTEMI MEASUREMENTS -------- HEIGHT: 157.5 cm WEIGHT: 92.5 kg BP: RVIDd: 3.4 cm (< 3.3) IVSd: 1.5 cm (0.6 - 1.1) LVIDd: 4.9 cm (3.9 - 5.3) LVPWd: 2.0 cm (0.6 - 1.1) IVSs: 2.3 cm LVIDs: 3.2 cm LVPWs: 2.3 cm LA Diam: 5.6 cm (2.7 - 3.8) MV EXCURSION: 19.523 mm (> 18.000) MV EF SLOPE: 112 mm/s (70 - 150) EPSS: 0.8 cm MV E Terrell: 1.12 m/s MV DecT: 150 ms MV A Terrell: 0.32 m/s MV E/A Ratio: 3.47 RAP: 5.00 mmHg RVSP: 33.80 mmHg FINDINGS -------- Sinus rhythm. This was a techncally difficult study with suboptimal views, , Lumason utilized for enhancement of im ages. The left ventricular size is normal. There is moderate concentric left ventricular hypertrophy. O verall left ventricular systolic function is mild-moderately impaired with, an EF between 40 - 45 %. [place] Hypokinesis. The right ventricle is normal in size. The left atrium is markedly dilated. The right atrial size is normal. 5.0mg OF Lumason UTLIZED: 2 OR MORE WALL SEGMENTS NOT VISUALIZED. The aortic valve is trileaflet, and appears structurally normal. No aortic stenosis or regurgitation. Mild mitral annular calcification present. Mild mitral regurgitation is present. Mild tricuspid regurgitation present. The right ventricular systolic pressure, as measured by Doppl er, is 33.80mmHg. There is no pulmonic regurgitation present. Thrombus seen in inferior apex. There is a small, generalized pericardial effusion present. CONCLUSIONS -------- 1. This was a techncally difficult study with suboptimal views, , Lumason utilized for enhancement of images. 2. The left ventricular size is normal. 3. There is moderate concentric left ventricular hypertrophy. 4. Overall left ventricular systolic function is mild-moderately impaired with, an EF between 40 - 45 %. 5. [place] Hypokinesis. 6. The right ventricle is normal in size. 7. The left atrium is markedly dilated. 8. The right atrial size is normal. 9. 5.0mg OF Lumason UTLIZED: 2 OR MORE WALL SEGMENTS NOT VISUALIZED. 10. The aortic valve is trileaflet, and appears structurally normal. No aortic stenosis or regurgitat ion. 11. Mild mitral annular calcification present. 12. Mild mitral regurgitation is present. 13. Mild tricuspid regurgitation present. 14. The right ventricular systolic pressure, as measured by Doppler, is 33.80mmHg. 15. There is no pulmonic regurgitation present. 16. Thrombus seen in inferior apex. 17. There is a small, generalized pericardial effusion present. ADVERTISING REPRESENTATIVE: Roberta Aleman RDCS
[2020-10-05] MEDS: INSULIN ASPART (NovoLOG) 100 UNIT/ML VIAL SQ SCH ×2 (18:45→21:11)
[2020-10-05 19:56] LABS: Glucose,Whole Blood 180 mg/dL (75-99)
[2020-10-05] MEDS ORDERED: APIXABAN 5 MG TAB PO SCH (21:00)
[2020-10-05] MEDS: PANTOPRAZOLE 40 MG TABLET PO SCH (21:07)
[2020-10-05] MEDS: ATORVASTATIN 80 MG TAB PO SCH (21:07)
[2020-10-05] MEDS: INSULIN DETEMIR (LEVEMIR) 100 UNIT/ML SYR SQ SCH (21:08)
--- NOTE | 2020-10-05 21:31 | HP ---
HISTORY AND PHYSICAL DATE OF ADMISSION: 10/05/2020 CHIEF COMPLAINT: Chest pain. HISTORY OF PRESENT ILLNESS: This is another of many admissions for this 39-year-old white female who has had a longstanding history of advanced coronary artery disease, cardiomyopathy and congestive heart failure. She started to have typical anginal pain again today and came to the emergency room. Troponin was elevated and she was admitted. She has been doing fairly well and is very compliant taking her medications, trying to lose weight, exercise and eat well. REVIEW OF SYSTEMS: She has had no syncope, cough, hemoptysis, abdominal pain, nausea, vomiting, etc. Past medical history, family history and personal and social histories reveal that she is on an extensive medication program including Symbicort 160/4.5 two puffs twice a day, Lantus 40 units once a day, trazodone 50 mg HS, metolazone 5 mg once a day, KCl 20 mEq 3 times a day, Flonase, hydralazine 100 mg t.i.d., furosemide 40 mg twice a week, albuterol MDI p.r.n., Xanax 0.5 once a day p.r.n., sertraline 50 mg once a day, Eliquis 5 mg twice a day, spironolactone 25 mg two a day, Nitro-Dur patch 0.4 once a day, pantoprazole 40 mg twice a day, montelukast 10 mg once a day, iron 325 once a day, carvedilol 25 twice a day, Ozempic 0.5 once a week, clopidogrel 75 once a day, atorvastatin 80 mg at night, and nebulized albuterol q.i.d. and p.r.n. ALLERGIES: NYSTATIN, TRAMADOL, IODINE, KEFLEX AND PENICILLIN. The rest of her history is unremarkable and unchanged from her recent admitting and discharge summaries. PHYSICAL EXAMINATION: Blood pressure is 116/75 with a pulse of 80, respirations of 34 and she is afebrile. In general she is she appeared to be overweight, in no acute distress. Skin color is normal, skin is warm and dry. Lymph nodes are not enlarged. Head, ears, eyes, nose, mouth and throat are normal. Neck veins cannot be assessed. Chest and abdomen is clear but demonstrated decreased breath sounds. Cardiac exam demonstrates what sounds like sinus rhythm and no murmurs or extra sounds. Abdomen is slightly protuberant, soft and nontender without any masses or visceromegaly. Extremities were normal and neurologically she is intact. She is admitted to the hospital with diagnoses: 1. Unstable angina pectoris with elevated troponin. 2. History of coronary artery disease. 3. History of atherosclerotic cardiomyopathy. 4. History of severe hypertension. 5. Has type 2 insulin dependent diabetes mellitus. PLAN: 1. Bedrest. 2. IV fluids. 3. Serial EKGs and enzymes. 4. Cardiology evaluation. MMODL / IJN: [id number] /
[2020-10-05] MEDS ORDERED: SODIUM CHLORIDE 0.9% 1,000 ML in EMPTY BAG 1 BAG IV ONE (23:00)
[2020-10-06] MEDS: SYMBICORT 160-4.5 MCG INHALER INHALATION SCH ×3 (00:44→20:08)
[2020-10-06] MEDS: POTASSIUM CHLORIDE ER 20 MEQ TAB.ER PO SCH (06:09)
[2020-10-06] MEDS: PANTOPRAZOLE 40 MG TABLET PO SCH ×2 (06:10→21:27)
[2020-10-06] MEDS: amLODIPine 10 MG TAB PO SCH (06:10)
[2020-10-06] MEDS: FERROUS SULFATE 325 MG TAB PO SCH (06:10)
[2020-10-06] MEDS: MONTELUKAST 10 MG TAB PO SCH (06:10)
[2020-10-06] MEDS: SERTRALINE 50 MG TAB PO SCH (06:10)
[2020-10-06] MEDS: carvediloL 12.5 MG TAB PO SCH ×2 (06:10→17:27)
[2020-10-06 06:15] LABS: Glucose,Whole Blood 144 mg/dL (75-99)
[2020-10-06] MEDS: INSULIN ASPART (NovoLOG) 100 UNIT/ML VIAL SQ SCH ×4 (06:34→21:28)
[2020-10-06] MEDS ORDERED: HEPARIN SODIUM,PORCINE 2,500 UNIT in SODIUM CHLORIDE 0.9% 250 ML IRRIGATION PRN (07:00)
[2020-10-06] MEDS ORDERED: ASPIRIN 325 MG TAB PO ONE (07:00)
[2020-10-06] MEDS ORDERED: HEPARIN SODIUM,PORCINE 10,000 UNIT in SODIUM CHLORIDE 0.9% 1,000 ML IRRIGATION PRN (07:00)
[2020-10-06] MEDS ORDERED: ATORVASTATIN 80 MG TAB PO ONE (07:00)
[2020-10-06] MEDS: ASPIRIN 81 MG PO SCH (08:51)
[2020-10-06] MEDS ORDERED: ASPIRIN 325 MG TAB PO SCH (09:00)
[2020-10-06] MEDS: hydrALAZINE HCL 50 MG TAB PO SCH ×3 (09:23→21:27)
[2020-10-06] MEDS: CLOPIDOGREL 75 MG TAB PO SCH (09:23)
[2020-10-06] MEDS ORDERED: fentaNYL (PF) 50 MCG/ML 2 ML AMP ONE (10:25)
[2020-10-06] MEDS ORDERED: HEPARIN SODIUM 1,000 UN/ML (10ML VL) ONE (10:25)
[2020-10-06] MEDS ORDERED: LIDOCAINE 1% INJ 10MG/ML (20 ML MDV) ONE (10:25)
[2020-10-06] MEDS ORDERED: VERAPAMIL 2.5 MG/ML 2 ML AMP ONE (10:25)
[2020-10-06] MEDS ORDERED: IV FLUID CONTINUATION 1,000 ML IV ONE (10:30)
[2020-10-06] MEDS ORDERED: methylPREDNISolone SOD SUCCI 125 MG/2 ML VIAL ONE (10:37)
[2020-10-06] MEDS ORDERED: diphenhydrAMINE 50 MG/ML 1 ML VIAL ONE (10:37)
[2020-10-06] MEDS ORDERED: methylPREDNISolone SOD SUCCI 125 MG/2 ML VIAL IV ONE (10:48)
[2020-10-06] MEDS ORDERED: MIDAZOLAM 2 MG/2 ML VIAL IV ONE (10:48)
[2020-10-06] MEDS ORDERED: fentaNYL (PF) 50 MCG/ML 2 ML AMP IV ONE (10:48)
[2020-10-06] MEDS ORDERED: LIDOCAINE 1% INJ 10MG/ML (20 ML MDV) SQ ONE (10:50)
[2020-10-06] MEDS: LIDOCAINE 1% INJ 10MG/ML (20 ML MDV) SQ ONE ×2 (10:51→11:14)
[2020-10-06] MEDS ORDERED: VERAPAMIL SYRINGE (5 MG/10 ML) INTRAARTER ONE ×2 (10:52→11:16)
[2020-10-06] MEDS ORDERED: HEPARIN SODIUM 1,000 UN/ML (10ML VL) IV ONE (11:24)
[2020-10-06] MEDS ORDERED: IOPAMIDOL-370 125ML BTL INJ ONE (11:30)
[2020-10-06] MEDS ORDERED: RX INFO: IV CONTRAST WAS GIVEN 1 EACH MISC MISCELLANE PRN (11:43)
[2020-10-06] MEDS ORDERED: SODIUM CHLORIDE 0.9% 1,000 ML IV SCH (11:45)
[2020-10-06 12:00] LABS: Glucose,Whole Blood 103 mg/dL (75-99)
[2020-10-06 12:27] LABS: Chol/HDL Ratio 4.15; LDL Cholesterol,Calculated 81.4 mg/dL (0.0-131.0); VLDL Calculation 25.6 mg/dL (5.00-40.00)
--- NOTE | 2020-10-06 13:57 | CC ---
CARDIAC CATHETERIZATION REPORT Ms. Franklin is a 39-year-old female with a known history of coronary artery disease status post stenting of the LAD and the left circumflex, history of cardiomyopathy, history of diabetes, hypertension, prior history of smoking, who presented with symptoms of progressive dyspnea, had mild troponin elevation. In view of her prior history and her presentation, recommendation was made regarding cardiac catheterization. The procedure as well as the risks and complications were discussed with the patient who is in full understanding and agreement. PROCEDURE: Patient was brought to dental laboratory assistant in a fasting semi-sedated state after receiving fentanyl and Benadryl and achieving moderate conscious sedated state. The right radial artery was cannulated. There was inability to advance the wire twice. In view of that, using Xylocaine anesthesia and Seldinger technique, a 6-[place] sheath was introduced in the left radial artery. Selective right and left coronary angiography performed using 5-[place]ian 4 bend right and left Romelia catheter, multiple views of the coronary arteries including hemiaxial views were obtained. Following that catheter and sheath were removed. Hemostasis was obtained with deployment of a TR band. There was no immediate complication. Patient is returned to the room in stable condition. Of note, the patient received a total of 5000 units of intravenous heparin. There was no immediate complication. FINDINGS: LEFT MAIN: This is a short sized vessel, bifurcating into left circumflex and left anterior descending coronary artery. Left main coronary artery has no evidence of high- grade stenosis. LEFT ANTERIOR DESCENDING ARTERY: This is a large-sized vessel reaching to the apex with a wraparound apex segment giving rise to two diagonal branches. The stented segment in the mid LAD is patent. There is no evidence of in-stent restenosis. The proximal LAD at the takeoff of the first diagonal branch has a 20% plaque. There is an 80-90% plaque at the ostium of the first diagonal branch that is small in caliber. The second diagonal branch is small as well and has a 70% to 80% plaque at the ostium. The rest of the vessel has no high-grade stenosis. LEFT CIRCUMFLEX: This is a nondominant large size vessel giving rise to four obtuse marginal branches. The stented segments in the second obtuse marginal branch and the third obtuse marginal branch are patent. The takeoff of the fourth obtuse marginal branch has a 99% stenosis. There is mild intimal disease in the left circumflex without any evidence of high-grade stenosis. RIGHT CORONARY ARTERY: This is a large dominant vessel bifurcating distally into PDA and posterolateral segment branches. The right coronary artery has a 20% plaque in the mid segment. The rest of the vessel has no high-grade stenosis. LEFT VENTRICULOGRAM: Left ventriculogram was not performed. CONCLUSION: 1. Patent stent in the LAD and the left circumflex. 2. Critical stenosis in the first diagonal branch and the fourth obtuse marginal branch without progression compared to 2020. RECOMMENDATION: In view of finding anatomy, I recommend continue medical therapy with aggressive coronary risk modifications that have been initiated. There is no progression of disease and the obtuse marginal branch ostium is a jailed branch and in view of the absence of any progression, I will continue present therapy, maximizing her medical therapy and depending on her progress further recommendation will be made. Those findings and recommendations were discussed with the patient and her family who are in full understanding and agreement. Duration of sedation is 41 minute. MMODL / IJN: [id number] /
[2020-10-06] MEDS: SPIRONOLACTONE 25 MG TAB PO SCH (14:20)
[2020-10-06] MEDS: EZETIMIBE 10 MG TAB PO SCH (14:20)
[2020-10-06] MEDS: NITROGLYCERIN 0.4MG/HR PATCH TRANSDERM SCH (14:20)
[2020-10-06] MEDS: metOLazone 2.5 MG TAB PO SCH (14:20)
[2020-10-06] MEDS: FUROSEMIDE 20 MG TAB PO SCH (15:40)
--- NOTE | 2020-10-06 15:55 | PN ---
PROGRESS NOTE CHIEF COMPLAINT: NSTEMI. HISTORY OF PRESENT ILLNESS: This lady is feeling well. She has had no problems with chest pain, shortness of breath, diaphoresis, nausea, etc. She is going for cardiac cath today. PHYSICAL EXAMINATION: Her vital signs are normal. Chest is clear. Cardiac exam is normal. Abdomen is soft, nontender. IMPRESSION: Chest pain with elevated troponin. PLAN: Cardiac cath today. MMODL / IJN: [id number] /
[2020-10-06] MEDS ORDERED: SEMAGLUTIDE 2 MG/1.5 ML SQ SCH (16:00)
[2020-10-06 16:50] LABS: Glucose,Whole Blood 261 mg/dL (75-99)
[2020-10-06 20:55] LABS: Glucose,Whole Blood 404 mg/dL (75-99)
[2020-10-06] MEDS: ATORVASTATIN 80 MG TAB PO SCH (21:28)
[2020-10-06] MEDS: INSULIN DETEMIR (LEVEMIR) 100 UNIT/ML SYR SQ SCH (21:28)
[2020-10-06] MEDS: FUROSEMIDE 10 MG/ML 4 ML VIAL IV SCH (23:27)
[2020-10-07 06:18] LABS: Glucose,Whole Blood 243 mg/dL (75-99)
[2020-10-07] MEDS: INSULIN ASPART (NovoLOG) 100 UNIT/ML VIAL SQ SCH (06:27)
[2020-10-07] MEDS: carvediloL 12.5 MG TAB PO SCH (06:27)
[2020-10-07 07:14] LABS: Potassium 3.9 mmol/L (3.5-5.1)
[2020-10-07 07:38] VITALS: BP 151/88; PULSE 91; RESP 19; TEMP 98.1
[2020-10-07] MEDS: SYMBICORT 160-4.5 MCG INHALER INHALATION SCH (08:09)
[2020-10-07] MEDS: MONTELUKAST 10 MG TAB PO SCH (09:37)
[2020-10-07] MEDS: metOLazone 2.5 MG TAB PO SCH ×2 (09:37→09:42)
[2020-10-07] MEDS: hydrALAZINE HCL 50 MG TAB PO SCH (09:37)
[2020-10-07] MEDS: EZETIMIBE 10 MG TAB PO SCH (09:37)
[2020-10-07] MEDS: SERTRALINE 50 MG TAB PO SCH (09:37)
[2020-10-07] MEDS: POTASSIUM CHLORIDE ER 20 MEQ TAB.ER PO SCH ×2 (09:37→09:45)
[2020-10-07] MEDS: SPIRONOLACTONE 25 MG TAB PO SCH (09:38)
[2020-10-07] MEDS: amLODIPine 10 MG TAB PO SCH (09:38)
[2020-10-07] MEDS: FERROUS SULFATE 325 MG TAB PO SCH (09:38)
[2020-10-07] MEDS: FUROSEMIDE 20 MG TAB PO SCH ×2 (09:38→09:40)
[2020-10-07] MEDS: PANTOPRAZOLE 40 MG TABLET PO SCH (09:38)
[2020-10-07] MEDS: CLOPIDOGREL 75 MG TAB PO SCH (09:38)
[2020-10-07] MEDS: NITROGLYCERIN 0.4MG/HR PATCH TRANSDERM SCH (09:39)
[2020-10-07] MEDS: ASPIRIN 81 MG PO SCH (09:59)
--- NOTE | 2020-10-07 10:02 | PN ---
PROGRESS NOTE Mrs. Franklin is a 39-year-old female with known history of ischemic cardiomyopathy status post percutaneous revascularization who presented with symptoms of progressive dyspnea, heart failure and mild elevation of her troponin. In view of that, she underwent cardiac catheterization yesterday that revealed no in-stent restenosis. She had obstructive disease in the diagonal branch and the third obtuse marginal branch that has been noted in the past. She is feeling well today. Her breathing is stable. She denies any dizziness or palpitation. She denies any nausea. She denies any cough or fever. She continues to be on aspirin once a day, amlodipine 10 mg daily, Lipitor 80 mg daily, Coreg 25 mg twice a day, Plavix 75 mg daily, furosemide 40 mg twice a day, hydralazine 100 mg 3 times a day, metolazone 2.5 mg daily, nitroglycerin patch, sertraline, and spironolactone 25 mg daily in addition to trazodone. PHYSICAL EXAMINATION: Blood pressure running in the 140s with a heart rate in 70s. LUNGS: Clear. HEART: Regular rate and rhythm, S1, S2. No S3 with systolic murmur, no diastolic murmur, no rub. ABDOMEN: Soft, obese, nontender. EXTREMITIES: No edema. Right and left radial pulse intact with mild ecchymosis. LAB DATA: Her echocardiogram revealed ejection fraction 40% to 45%. There was a thrombus noted in the inferior apical segment with mild mitral and tricuspid regurgitation. IMPRESSION: 1. Symptoms of congestive heart failure with known history of moderate cardiomyopathy, stable. 2. Mild troponin elevation with no evidence of progression of disease compared to the testing that was performed in 2020. 3. History of apical thrombus. 4. History of hypertension. 5. Diabetes mellitus. 6. Hyperlipidemia. RECOMMENDATION: From the cardiac standpoint, we will resume anticoagulation. I will stop her aspirin. Since it has been over 80 years since her percutaneous revascularization, she should be able to be discharged home today and follow up with Dr. Davila as an outpatient. MMODL / IJN: [id number] /
--- NOTE | 2020-10-07 20:06 | DS ---
DISCHARGE SUMMARY CHIEF COMPLAINT: Chest pain with elevated troponin. HISTORY OF PRESENT ILLNESS AND PHYSICAL EXAMINATION: Details of this lady's history and physical can be found in the initial workup. LABORATORY STUDIES: While she was in a hospital she had laboratory studies, details of which can be found in the laboratory section of her chart. COURSE IN THE HOSPITAL: After admission, she was placed on bedrest, started on intravenous fluids and she had serial EKGs and troponins, which were elevated. She was seen by Cardiology and taken to the quality control lab tech. The report was that she had no critical coronary artery lesions. She was stable and doing well. It was felt that she could go home on the . She will go home on her usual activity, diet, medications and will be followed up closely in the office in several days. FINAL DIAGNOSES: 1. Unstable angina pectoris. 2. History of coronary artery disease. 3. Insulin-dependent diabetes mellitus. OPERATIONS: Cardiac cath. CONSULTATIONS: Cardiology. She is improved. MMRODNEY / SHERIFN: [id number] /
[2020-10-07] MEDS ORDERED: APIXABAN 5 MG TAB PO SCH (21:00)
[2020-10-12] MEDS ORDERED: Semaglutide [Ozempic] 0.25 MG/0.2 ML Pen SQ SCH (09:00)
== END 2020-10-07 11:52 | disposition home or self-care (01) | DRG 286 ==
LOC: EC 09:46 → 3SCARD 11:47
PROVIDERS: ADMIT Family Medicine; ATTEND Family Medicine
PROC: B2111ZZ Fluoroscopy of Multiple Coronary Arteries using Low Osmolar Contrast (ICD-10-PCS; principal; 2020-10-06 10:30)
PROC: 4A023N7 Measurement of Cardiac Sampling and Pressure, Left Heart, Percutaneous Approach (ICD-10-PCS; principal; 2020-10-06 10:30)
DX: I25.110 Atherosclerotic heart disease of native coronary artery with unstable angina pectoris (principal); I50.33 Acute on chronic diastolic (congestive) heart failure; I11.0 Hypertensive heart disease with heart failure; J45.909 Unspecified asthma, uncomplicated; N64.4 Mastodynia; I48.91 Unspecified atrial fibrillation; I25.5 Ischemic cardiomyopathy; I25.2 Old myocardial infarction; E11.9 Type 2 diabetes mellitus without complications; E66.01 Morbid (severe) obesity due to excess calories; Z68.38 Body mass index [BMI] 38.0-38.9, adult; E78.5 Hyperlipidemia, unspecified; F20.9 Schizophrenia, unspecified; F31.9 Bipolar disorder, unspecified; F41.9 Anxiety disorder, unspecified; Z79.01 Long term (current) use of anticoagulants; Z79.02 Long term (current) use of antithrombotics/antiplatelets; Z79.4 Long term (current) use of insulin; Z79.51 Long term (current) use of inhaled steroids; Z79.899 Other long term (current) drug therapy; Z82.49 Family history of ischemic heart disease and other diseases of the circulatory system; Z86.711 Personal history of pulmonary embolism; Z87.11 Personal history of peptic ulcer disease; Z87.442 Personal history of urinary calculi; Z95.5 Presence of coronary angioplasty implant and graft; Z96.651 Presence of right artificial knee joint; Z98.51 Tubal ligation status; Z85.6 Personal history of leukemia; Z88.5 Allergy status to narcotic agent; Z88.0 Allergy status to penicillin; Z88.1 Allergy status to other antibiotic agents; Z91.041 Radiographic dye allergy status; Z90.89 Acquired absence of other organs
CPT/HCPCS: 36415; 71046; 80048; 80053; 80061; 83735; 83880; 84484; 85025; 85379; 85610; 85730; 93005; 93306; 93454; 94640; 94760; 99291

== ENCOUNTER 2020-10-08 11:44 | Emergency (ER) | payer MEDICARE, OTHER ==
[2020-10-08 11:57] VITALS: BP 178/95; PULSE 94; RESP 18; TEMP 97.8
[2020-10-08] MEDS ORDERED: DIPH,PERTUS(ACELL)TETVAC-LF 0.5 ML VIAL IM ONE (12:15)
[2020-10-08] MEDS ORDERED: DOXYCYCLINE 100 MG CAP PO STA (12:16)
--- NOTE | 2020-10-08 12:25 | ED ---
General Adult HPI - General Chief complaint: Animal Bite Stated complaint: Dog Bite on Rt Leg Time Seen by Provider: 10/08/20 11:56 Source: patient Mode of arrival: wheelchair Limitations: no limitations - History of Present Illness Initial comments: Dictation was produced using [employer] dictation software. please excuse any grammatical, word or spelling errors. Chief Complaint: 39-year-old female presents after a dog bite History of Present Illness: 39-year-old female at 8:30 PM last night she was bit by a dog. Patient states that there was another individual in the neighborhood who brought her dog's to inquire to the patient about feeding stray cats. has footage of this individual with her 2 small dogs. Patient was bit to her right lower extremity to her lateral calf area. Patient reports that the dog that bit her had collar with license. Patient does not know the individual who owns the dog's. The ROS documented in this emergency department record has been reviewed and confirmed by me. Those systems with pertinent positive or negative responses have been documented in the HPI. All other systems are other negative and/or noncontributory. PHYSICAL EXAM: General Impression: Alert and oriented x3, not in acute distress HEENT: Normocephalic atraumatic, extra-ocular movements intact, pupils equal and reactive to light bilaterally, mucous membranes moist. Cardiovascular: Heart regular rate and rhythm Chest: Able to complete full sentences, no retractions, no tachypnea Abdomen: abdomen soft, non-tender, non-distended, no organomegaly Musculoskeletal: Pulses present and equal in all extremities, no peripheral edema Motor: no focal deficits noted Neurological: CN II-XII grossly intact, no focal motor or sensory deficits noted Skin: Intact with no visualized rashes, small bite wound to the right lateral mid calf Psych: Normal affect and mood ED course: 39 y Old female presents after a dog bite. Bite occurred at approximately 30 p.m. last night. Signs upon arrival are within acceptable limits. It appears that these dogs are domesticated. Unlikely that dogs are rabid. Vaccination records are unknown about the dog that bit her. Nonetheless animal control report was filed with the assistance of the nurse. Patient given tetanus update and prescription for doxycycline. She is advised to follow-up with animal control for more information regarding the dog's vaccination status. Patient will be discharged. - Related Data Home Medications Medication Instructions Recorded Confirmed Ferrous Sulfate [Iron] 325 mg PO DAILY 07/11/18 10/05/20 carvediloL [Carvedilol] 25 mg PO BID 07/11/18 10/05/20 Pantoprazole [Protonix] 40 mg PO BID 04/27/19 10/05/20 Semaglutide [Ozempic] 0.5 mg SQ MO 11/19/19 10/05/20 ALPRAZolam [Xanax] 0.5 mg PO DAILY PRN 06/16/20 10/05/20 Albuterol Sulfate [Ventolin HFA] 1 - 2 puff INHALATION RT-QID PRN 06/16/20 10/05/20 Albuterol Nebulized [Ventolin 2.5 mg INHALATION RT-QID PRN 08/07/20 10/05/20 Nebulized] Budesonide/Formoterol Fumarate 2 puff INHALATION RT-BID 08/07/20 10/05/20 [Symbicort 160-4.5 Mcg Inhaler] Fluticasone Nasal [place] [Flonase 1 spray EA NOSTRIL DAILY PRN 08/07/20 10/05/20 Nasal [place]] Insulin Glargine,Hum.rec.anlog 40 unit SQ HS 08/07/20 10/05/20 [Lantus Solostar] Montelukast [Singulair] 10 mg PO DAILY 08/07/20 10/05/20 Multivitamins, Thera [Multivitamin 1 tab PO DAILY 08/07/20 10/05/20 (formulary)] Nitroglycerin [Nitro-Dur 0.4MG/Hr 1 patch TRANSDERM DAILY 08/07/20 10/05/20 Patch] Spironolactone [Aldactone] 25 mg PO DAILY 08/07/20 10/05/20 Ezetimibe [Zetia] 10 mg PO DAILY 10/05/20 10/05/20 Potassium Chloride 20 meq PO DAILY 10/05/20 10/05/20 traZODone HCL [Desyrel] 50 mg PO HS PRN 10/05/20 10/05/20 Previous Rx's Medication Instructions Recorded Atorvastatin [Lipitor] 80 mg PO HS #30 tab 12/06/18 Clopidogrel [Plavix] 75 mg PO DAILY #30 tab 09/19/19 Apixaban [Eliquis] 5 mg PO BID #180 tab 11/21/19 Sertraline [Zoloft] 50 mg PO DAILY #30 tab 11/22/19 Furosemide [Lasix] 40 mg PO BID #60 tab 08/09/20 amLODIPine [Norvasc] 10 mg PO DAILY #30 tab 08/09/20 hydrALAZINE HCL [Apresoline] 100 mg PO TID #90 tab 08/09/20 metOLazone [Zaroxolyn] 2.5 mg PO DAILY #30 tab 08/09/20 Doxycycline [Vibramycin] 100 mg PO BID 14 Days #28 capsule 10/08/20 Allergies Allergy/AdvReac Type Severity Reaction Status Date / Time cephalexin [From Keflex] Allergy Rash/Hives Verified 10/08/20 11:53 codeine Allergy Rash/Hives Verified 10/08/20 11:53 Iodine and Iodide Containing Allergy Rash/Hives Verified 10/08/20 11:53 Produc Penicillins Allergy Rash/Hives Verified 10/08/20 11:53 tramadol Allergy Rash/Hives Verified 10/08/20 11:53 Review of Systems ROS Statement: Those systems with pertinent positive or pertinent negative responses have been documented in the HPI. ROS Other: All systems not noted in ROS Statement are negative. Past Medical History Past Medical History: Atrial Fibrillation, Asthma, Coronary Artery Disease (CAD), Diabetes Mellitus, GERD/Reflux, Hyperlipidemia, Hypertension, Myocardial Infarction ([place]), Pulmonary Embolus (PE) Additional Past Medical History / Comment(s): peptic ulcer, gall stones, kidney stone, childhood leukemia Last Myocardial Infarction Date:: 05/01/2019 History of Any Multi-Drug Resistant Organisms: None Reported Past Surgical History: Section, Heart Catheterization With Stent, Joint Replacement, Tonsillectomy, Tubal Ligation Additional Past Surgical History / Comment(s): 4 stents, partial right knee replacement Past Anesthesia/Blood Transfusion Reactions: No Reported Reaction Date of Last Stent Placement:: 08/02/18 Past Psychological History: Anxiety, Bipolar, Depression, Schizophrenia Smoking Status: Never smoker Past Alcohol Use History: None Reported Past Drug Use History: None Reported - Past Family History Father Family Medical History: Hyperlipidemia, Hypertension Additional Family Medical History / Comment(s): pins in knee, heart stents x 4 General Exam Limitations: no limitations Course Vital Signs 10/08/20 11:53 Temperature 97.8 F Pulse Rate 94 Respiratory 18 Rate Blood Pressure 178/95 O2 Sat by Pulse 96 Oximetry Disposition Clinical Impression: Bite by animal Disposition: HOME SELF-CARE Condition: Fair Instructions (If sedation given, give patient instructions): Animal Bite (ED) Prescriptions: Doxycycline [Vibramycin] 100 mg PO BID 14 Days #28 capsule Is patient prescribed a controlled substance at d/c from ED?: No Referrals: Odell Sena MD [Primary Care Provider] - 1-2 days
== END 2020-10-08 12:41 | disposition home or self-care (01) ==
LOC: EC 11:44
DX: S81.851A Open bite, right lower leg, initial encounter (principal); Z23 Encounter for immunization; E11.9 Type 2 diabetes mellitus without complications; E78.5 Hyperlipidemia, unspecified; F31.9 Bipolar disorder, unspecified; I10 Essential (primary) hypertension; I25.10 Atherosclerotic heart disease of native coronary artery without angina pectoris; I25.2 Old myocardial infarction; I48.91 Unspecified atrial fibrillation; J45.909 Unspecified asthma, uncomplicated; K21.9 Gastro-esophageal reflux disease without esophagitis; F41.9 Anxiety disorder, unspecified; Z86.711 Personal history of pulmonary embolism; Z87.442 Personal history of urinary calculi; Z79.01 Long term (current) use of anticoagulants; Z79.02 Long term (current) use of antithrombotics/antiplatelets; Z79.4 Long term (current) use of insulin; Z79.51 Long term (current) use of inhaled steroids; Z88.0 Allergy status to penicillin; Z88.1 Allergy status to other antibiotic agents; Z88.5 Allergy status to narcotic agent; Z88.8 Allergy status to other drugs, medicaments and biological substances; W54.0XXA Bitten by dog, initial encounter
CPT/HCPCS: 90471; 90715; 99283

== ENCOUNTER 2020-12-28 18:22 | Emergency (ER) | payer MEDICARE, OTHER ==
[2020-12-28] MEDS ORDERED: HYDROmorphone 0.5 MG/0.5 ML SYRINGE IVP STA (19:15)
[2020-12-28] MEDS ORDERED: hydrALAZINE HCL 20 MG/ML 1 ML VIAL IVP STA ×2 (19:15→20:13)
[2020-12-28] MEDS ORDERED: ONDANSETRON 4 MG/2 ML VIAL IVP STA (19:16)
[2020-12-28 19:43] LABS: Basophils % (A) 0 %; Eosinophils # (A) 0.1 k/uL (0-0.7); Eosinophils % (A) 1 %; HCT 39.5 % (34.0-46.0); HGB 13.1 gm/dL (11.4-16.0); Lymphocytes # (A) 1.2 k/uL (1.0-4.8); Lymphocytes % (A) 12 %; MCH 26.4 pg (25.0-35.0); MCHC 33.3 g/dL (31.0-37.0); MCV 79.4 fL (80.0-100.0); Mean Platelet Volume 8.2; Monocytes # (A) 0.4 k/uL (0-1.0); Monocytes % (A) 4 %; Neutrophils # (A) 7.7 k/uL (1.3-7.7); Neutrophils % (A) 80 %; Platelet Count 297 k/uL (150-450); Poikilocytosis Slight; RBC 4.98 m/uL (3.80-5.40); RDW 15.8 % (11.5-15.5); WBC 9.6 k/uL (3.8-10.6)
--- NOTE | 2020-12-28 19:52 | XR ---
EXAMINATION TYPE: XR chest 2V DATE OF EXAM: 12/28/2020 COMPARISON: 10/05/2020 TECHNIQUE: PA and lateral views submitted. HISTORY: Chest pain FINDINGS: The lungs are clear and there is no pneumothorax, pleural effusion, or focal pneumonia. Heart is ma rkedly enlarged. Correlate for mild central venous congestion. No sizable pleural effusion. IMPRESSION: 1. Severe cardiomegaly stable from prior exam. Correlate for mild central venous congestion..
[2020-12-28 19:54] LABS: ALT 29 U/L (4-34); AST 29 U/L (14-36); African American GFR (CKD) >90 (>60 ml/min/1.73 sqM); Albumin 4.1 g/dL (3.5-5.0); Alkaline Phosphatase 55 U/L (38-126); Anion Gap 11 mmol/L; Blood Urea Nitrogen 21 mg/dL (7-17); Calcium 9.5 mg/dL (8.4-10.2); Carbon Dioxide 24 mmol/L (22-30); Chloride 101 mmol/L (98-107); Glucose 147 mg/dL (74-99); Magnesium 1.5 mg/dL (1.6-2.3); Non-African American GFR(CKD) 80 (>60 ml/min/1.73 sqM); Potassium 3.9 mmol/L (3.5-5.1); Sodium 136 mmol/L (137-145); Total Bilirubin 0.8 mg/dL (0.2-1.3); Total Protein 6.7 g/dL (6.3-8.2)
[2020-12-28 19:55] LABS: Partial Thromboplastin Time 22.5 sec (22.0-30.0)
[2020-12-28 20:06] VITALS: RESP 18
[2020-12-28] MEDS ORDERED: METOCLOPRAMIDE 5 MG/ML 2 ML VIAL IVP STA (20:21)
[2020-12-28] MEDS ORDERED: FAMOTIDINE 20 MG/2 ML VIAL IV STA (20:22)
[2020-12-28] MEDS ORDERED: methylPREDNISolone SOD SUCCI 125 MG/2 ML VIAL IV STA (20:22)
[2020-12-28] MEDS ORDERED: diphenhydrAMINE 50 MG/ML 1 ML VIAL IVP STA (20:22)
--- NOTE | 2020-12-28 21:27 | CT ---
EXAMINATION TYPE: CT soft tissue neck w con DATE OF EXAM: 12/28/2020 9:09 PM COMPARISON: None HISTORY: Dental infection, right upper, evaluate for [place]. CT DLP: 450.7 mGycm Automated exposure control for dose reduction was used. CONTRAST: CT scan of the neck is performed following with IV Contrast, patient injected with 100 mL of Isovue 3 00. Axial images are obtained, coronal and sagittal reformatted images are reviewed. FINDINGS: Nasopharynx and oropharynx symmetric. Intracranial structures and osseous structures are sy mmetric. Vocal cords limited in assessment. Parotid and submandibular glands have a normal appearance . Hypertrophic and degenerative change C5-C6. No diagnostic evidence of abscess. Single bleb is seen in the right upper lobe. Trace amount of fluid within the superior pericardial recess. No pathologic adenopathy. IMPRESSION: No definite acute process.
[2020-12-28] MEDS ORDERED: carvediloL 12.5 MG TAB PO STA (21:31)
[2020-12-28] MEDS ORDERED: hydrALAZINE HCL 50 MG TAB PO STA (21:31)
[2020-12-28 22:03] VITALS: BP 168/90
[2020-12-28] MEDS: FUROSEMIDE 40 MG TAB PO STA ×2 (22:03→22:05)
--- NOTE | 2020-12-28 22:43 | ED ---
General Adult HPI - General Chief complaint: Recheck/Abnormal Lab/Rx Stated complaint: hypertension Time Seen by Provider: 12/28/20 18:53 Source: EMS, RN notes reviewed, old records reviewed Mode of arrival: EMS Limitations: no limitations - History of Present Illness Initial comments: I evaluated the patient when she was placed in a room.Patient is a 40-year-old female with past medical history remarkable for dental pain with chronic dental infection and clindamycin, atrial fibrillation on, asthma, diabetes, hypertension, multiple myocardial infarctions who presents emergency Department complaining of worsening dental pain. She is on chronic clindamycin. She is continuing to take this for an antibiotic, however states that the pain is worse. The dental pain is over her upper teeth and her gumline. States she has seen an oral surgeon/dentist for this. She states that today the pain was worse and she knows that her blood pressure was elevated as well which prompted her to the emergency department. She denies any headache, chest pain, shortness breath, abdominal pain, nausea, vomiting. Denies any blurry vision, weakness, numbness. She denies any fevers, chills, cough. She has no other acute complaints at this time. She states that she had a prior HI with just elevated blood pressure which is why she presents emergency department over concern for both pain as well as an HI. She cannot receive the dental surgery until she go es 6 months without having an HI. - Related Data Home Medications Medication Instructions Recorded Confirmed Ferrous Sulfate [Iron] 325 mg PO DAILY 07/11/18 10/05/20 carvediloL 25 mg PO BID 07/11/18 10/05/20 Pantoprazole [Protonix] 40 mg PO BID 04/27/19 10/05/20 Semaglutide [Ozempic] 0.5 mg SQ MO 11/19/19 10/05/20 ALPRAZolam [Xanax] 0.5 mg PO DAILY PRN 06/16/20 10/05/20 Albuterol Sulfate [Ventolin HFA] 1 - 2 puff INHALATION RT-QID PRN 06/16/2010/05 Albuterol Nebulized [Ventolin 2.5 mg INHALATION RT-QID PRN 08/07/20 10/05/20 Nebulized] Budesonide/Formoterol Fumarate 2 puff INHALATION RT-BID 08/07/20 10/05/20 [Symbicort 160-4.5 Mcg Inhaler] Fluticasone Nasal [place] [Flonase 1 spray EA NOSTRIL DAILY PRN 08/07/20 10/05/20 Nasal [place]] Insulin Glargine,Hum.rec.anlog 40 unit SQ HS 08/07/20 10/05/20 [Lantus Solostar Pen] Montelukast [Singulair] 10 mg PO DAILY 08/07/20 10/05/20 Multivitamins, Thera [Multivitamin 1 tab PO DAILY 08/07/20 10/05/20 (formulary)] Nitroglycerin [Nitro-Dur 0.4MG/Hr 1 patch TRANSDERM DAILY 08/07/20 10/05/20 Patch] Spironolactone [Aldactone] 25 mg PO DAILY 08/07/20 10/05/20 Ezetimibe [Zetia] 10 mg PO DAILY 10/05/20 10/05/20 Potassium Chloride 20 meq PO DAILY 10/05/20 10/05/20 traZODone HCL [Desyrel] 50 mg PO HS PRN 10/05/20 10/05/20 Previous Rx's Medication Instructions Recorded Atorvastatin [Lipitor] 80 mg PO HS #30 tab 12/06/18 Clopidogrel [Plavix] 75 mg PO DAILY #30 tab 12/06/18 Apixaban [Eliquis] 5 mg PO BID #180 tab 11/21/19 Sertraline [Zoloft] 50 mg PO DAILY #30 tab 11/22/19 Furosemide [Lasix] 40 mg PO BID #60 tab 08/09/20 amLODIPine [Norvasc] 10 mg PO DAILY #30 tab 08/09/20 hydrALAZINE HCL [Apresoline] 100 mg PO TID #90 tab 08/09/20 metOLazone [Zaroxolyn] 2.5 mg PO DAILY #30 tab 08/09/20 Doxycycline [Vibramycin] 100 mg PO BID 14 Days #28 capsule 10/08/20 HYDROcodone/APAP 5-325MG [[place] 1 tab PO Q6HR PRN 3 Days #12 tab 12/28/20 5-325] Allergies Allergy/AdvReac Type Severity Reaction Status Date / Time cephalexin [From Keflex] Allergy Rash/Hives Verified 12/28/20 18:30 codeine Allergy Rash/Hives Verified 12/28/20 18:30 Iodine and Iodide Containing Allergy Rash/Hives Verified 12/28/20 18:30 Produc Penicillins Allergy Rash/Hives Verified 12/28/20 18:30 tramadol Allergy Rash/Hives Verified 12/28/20 18:30 Review of Systems ROS Statement: Those systems with pertinent positive or pertinent negative responses have been documented in the HPI. Review of Systems: CONST: Denies fever EYES: Denies blurry vision ENT: Endorses dental pain. C/V: Denies Chest pain RESP: Denies shortness of breath GI: Denies abdominal pain : Denies dysuria SKIN: Denies rash. MSK: Denies joint pain. NEURO: Denies headache ROS Other: All systems not noted in ROS Statement are negative. Past Medical History Past Medical History: Atrial Fibrillation, Asthma, Coronary Artery Disease (CAD), Diabetes Mellitus, GERD/Reflux, Hyperlipidemia, Hypertension, Myocardial Infarction (HI), Pulmonary Embolus (PE) Additional Past Medical History / Comment(s): peptic ulcer, gall stones, kidney stone, childhood leukemia, HI X7 Last Myocardial Infarction Date:: 05/01/2019 History of Any Multi-Drug Resistant Organisms: None Reported Past Surgical History: Section, Heart Catheterization With Stent, Joint Replacement, Tonsillectomy, Tubal Ligation Additional Past Surgical History / Comment(s): 4 stents, partial right knee replacement Past Anesthesia/Blood Transfusion Reactions: No Reported Reaction Date of Last Stent Placement:: 08/02/18 Past Psychological History: Anxiety, Bipolar, Depression, Schizophrenia Smoking Status: Never smoker Past Alcohol Use History: None Reported Past Drug Use History: None Reported - Past Family History Father Family Medical History: Hyperlipidemia, Hypertension Additional Family Medical History / Comment(s): pins in knee, heart stents x 4 General Exam - General Exam Comments Initial Comments: General: Appears in moderate distress secondary to dental pain. HEAD: Normal with no signs of head trauma. EYES: PERRLA, EOMI, conjunctiva normal, no discharge. ENT: Hearing is grossly intact. Normal posterior oropharynx. Anterior oropharynx shows very stages of tooth decay. Upper frontal incisors are at the location of where the patient is having most pain. There is no worsening fluctuance or erythema at the gumline. There is no swelling of the floor of the mouth, however exam is difficult as the patient does have a large neck. She is no extension of the swelling the rest of her face as far as I can tell. There is no stridor. She is not having difficulty tolerating secretions. RESPIRATORY: Clear breath sounds bilaterally. No wheezes, rales, or rhonchi. C/V: Regular rate and rhythm. S1 and S2 auscultated, no edema, peripheral pulses 2+ and intact throughout ABD: Abd is soft, nontender, nondistended EXT: Normal range of motion, no obvious deformity SKIN: No rashes or lesions observed on exposed skin. NEURO: Alert and oriented 4. No focal deficits. Limitations: no limitations Course Vital Signs 12/28/20 12/28/20 12/28/20 18:30 19:32 20:06 Temperature 97.9 F Pulse Rate 105 H 99 96 Respiratory 16 16 18 Rate Blood Pressure 201/146 215/124 200/115 O2 Sat by Pulse 98 98 98 Oximetry 12/28/20 12/28/20 12/28/20 20:40 22:02 22:57 Temperature 97.5 F L Pulse Rate 96 99 86 Respiratory 18 18 18 Rate Blood Pressure 204/130 168/90 168/90 O2 Sat by Pulse 96 96 94 L Oximetry Medical Decision Making - Medical Decision Making Based on the patient's presentation and physical exam, I'm concerned for possible worsening dental infection, overdose and chronic. She states the pain was worse and today however. Patient also presents with what appears to be asymptomatic hypertension with a history of hypertension. She is not missed any of her medications. She states that she did have "a heart attack with high blood pressure is mildly symptoms previously." She denies any other symptoms including headaches, shortness of breath, chest pain. She is hypertensive with systolics over 200. This may be probably factorial, including pain. However we will obtain a cardiac workup based on her concern as well as facial imaging due to the difficulty with full exam of the face secondary to body habitus. This will include troponin, EKG, chest x-ray as well as CT of the neck with contrast. She does have a contrast ALLERGY and she will be administered the urgent contrast ALLERGY prep. Patient will be symptomatically treated with a 0.5 mg IV Dilaudid, 10 mg of IV hydralazine, as well as 4 mg of IV Zofran. She was in agreement with this plan. Patient's EKG shows no signs of acute ischemia and no changes when compared to prior EKGs. Chest x-ray revealed no acute cardiopulmonary process. CT soft tissue neck revealed no acute process. Laboratory studies were remarkable for normal white blood cell count. Troponin is indeterminate at 0.027, however on comparison to prior troponin levels, she appears to have a chronic troponin leak with a baseline ranging from 0.017-0.033. On reevaluation, patient is feeling improved. The pressure is mildly improved. However I did recommend that we provide her with doses of her home antihyperte nsives as she is due for them to further improve her blood pressure. She was in agreement this plan. I did discuss with her that her heart score is low at this time at 2, as she seems to have her baseline troponin and no acute EKG changes. I believe it is safer to be discharged home pending improvement in her blood pressure. She is already on clindamycin at home. I will provide her with [place] prescription until she can follow-up with her dentist. She was in agreement this plan. Following administration of her home by mouth hydralazine, Lasix, Coreg, the patient's blood pressure did improve with systolics consistently ranging from 160-175. I do believe it is safer to be discharged home at this time and she remains otherwise asymptomatic. Patient was in agreement with this plan. I will provide the patient with a prescription for [place] 5. Patient already has clindamycin at home. She completed an opiate form.. I instructed the patient to follow up with their PCP in the next 3 days. I explained that the patient should return to the emergency department if they experience any worsening symptoms. Strict return precautions were discussed with the patient. The patient expressed understanding of these instructions. I answered all questions that the patient had. The patient was discharged home in fair condition with their prescriptions and follow up information. - Lab Data Result diagrams: 12/28/20 19:12/28/20 19:30 Lab Results 12/28/20 12/28/20 12/28/20 Range/Units 19:30 19:30 19:30 WBC 9.6 (3.8-10.6) k/uL RBC 4.98 (3.80-5.40) m/uL Hgb 13.1 (11.4-16.0) gm/dL Hct 39.5 (34.0-46.0) % MCV 79.4 L (80.0-100.0) fL MCH 26.4 (25.0-35.0) pg MCHC 33.3 (31.0-37.0) g/dL RDW 15.8 H (11.5-15.5) % Plt Count 297 (150-450) k/uL MPV 8.2 Neutrophils % 80 % Lymphocytes % 12 % Monocytes % 4 % Eosinophils % 1 % Basophils % 0 % Neutrophils # 7.7 (1.3-7.7) k/uL Lymphocytes # 1.2 (1.0-4.8) k/uL Monocytes # 0.4 (0-1.0) k/uL Eosinophils # 0.1 (0-0.7) k/uL Basophils # 0.0 (0-0.2) k/uL Poikilocytosis Slight PT 11.0 (9.0-12.0) sec INR 1.0 (<1.2) APTT 22.5 (22.0-30.0) sec Sodium 136 L (137-145) mmol/L Potassium 3.9 (3.5-5.1) mmol/L Chloride 101 (98-107) mmol/L Carbon Dioxide 24 (22-30) mmol/L Anion Gap 11 mmol/L BUN 21 H (7-17) mg/dL Creatinine 0.90 (0.52-1.04) mg/dL Est GFR (CKD-EPI)AfAm >90 (>60 ml/min/1.73 sqM) Est GFR (CKD-EPI)NonAf 80 (>60 ml/min/1.73 sqM) Glucose 147 H (74-99) mg/dL Plasma Lactic Acid [place] (0.7-2.0) mmol/L Calcium 9.5 (8.4-10.2) mg/dL Magnesium 1.5 L (1.6-2.3) mg/dL Total Bilirubin 0.8 (0.2-1.3) mg/dL AST 29 (14-36) U/L ALT 29 (4-34) U/L Alkaline Phosphatase 55 (38-126) U/L Troponin I (0.000-0.034) ng/mL Total Protein 6.7 (6.3-8.2) g/dL Albumin 4.1 (3.5-5.0) g/dL 12/28/20 12/28/20 Range/Units 19:30 19:30 WBC (3.8-10.6) k/uL RBC (3.80-5.40) m/uL Hgb (11.4-16.0) gm/dL Hct (34.0-46.0) % MCV (80.0-100.0) fL MCH (25.0-35.0) pg MCHC (31.0-37.0) g/dL RDW (11.5-15.5) % Plt Count (150-450) k/uL MPV Neutrophils % % Lymphocytes % % Monocytes % % Eosinophils % % Basophils % % Neutrophils # (1.3-7.7) k/uL Lymphocytes # (1.0-4.8) k/uL Monocytes # (0-1.0) k/uL Eosinophils # (0-0.7) k/uL Basophils # (0-0.2) k/uL Poikilocytosis PT (9.0-12.0) sec INR (<1.2) APTT (22.0-30.0) sec Sodium (137-145) mmol/L Potassium (3.5-5.1) mmol/L Chloride (98-107) mmol/L Carbon Dioxide (22-30) mmol/L Anion Gap mmol/L BUN (7-17) mg/dL Creatinine (0.52-1.04) mg/dL Est GFR (CKD-EPI)AfAm (>60 ml/min/1.73 sqM) Est GFR (CKD-EPI)NonAf (>60 ml/min/1.73 sqM) Glucose (74-99) mg/dL Plasma Lactic Acid [place] 1.3 (0.7-2.0) mmol/L Calcium (8.4-10.2) mg/dL Magnesium (1.6-2.3) mg/dL Total Bilirubin (0.2-1.3) mg/dL AST (14-36) U/L ALT (4-34) U/L Alkaline Phosphatase (38-126) U/L Troponin I 0.027 (0.000-0.034) ng/mL Total Protein (6.3-8.2) g/dL Albumin (3.5-5.0) g/dL - EKG Data -: EKG Interpreted by Me EKG Comments: 12-lead Electrocardiogram Interpretation Note EKG was reviewed and interpreted by myself. 12-lead ECG performed at 1833 is interpreted by me as revealing sinus tachycardia at a rate of 104 beats per minute. [place] is normal. OR interval is 142 ms, QRS duration is 94 ms, QTC is 496 seconds.. There were no ST or T wave abnormalities to suggest myocardial ischemia or injury. R wave progression across the precordium was satisfactory. By my interpretation this EKG is non-diagnostic for acute ischemia. On compari son with prior EKGs, this EKG is unchanged. There may be a minor incomplete right bundle-branch block as well as biatrial enlargement. Disposition Clinical Impression: Jaw pain, Tooth infection, Asymptomatic hypertension Disposition: HOME SELF-CARE Condition: Fair Prescriptions: HYDROcodone/APAP 5-325MG [[place] 5-325] 1 tab PO Q6HR PRN 3 Days #12 tab PRN Reason: Pain Is patient prescribed a controlled substance at d/c from ED?: Yes If prescribed controlled substance>3 days was MAPS reviewed?: Prescribed <3 Days Referrals: Odell Sena MD [Primary Care Provider] - 1-2 days
[2020-12-28 22:59] VITALS: PULSE 86; TEMP 97.5
== END 2020-12-28 23:00 | disposition home or self-care (01) ==
LOC: EC 18:22
DX: K04.7 Periapical abscess without sinus (principal); I11.9 Hypertensive heart disease without heart failure; E78.5 Hyperlipidemia, unspecified; E11.9 Type 2 diabetes mellitus without complications; F31.9 Bipolar disorder, unspecified; F41.9 Anxiety disorder, unspecified; I25.10 Atherosclerotic heart disease of native coronary artery without angina pectoris; I25.2 Old myocardial infarction; J45.909 Unspecified asthma, uncomplicated; K21.9 Gastro-esophageal reflux disease without esophagitis; Z87.442 Personal history of urinary calculi; Z86.711 Personal history of pulmonary embolism; Z79.01 Long term (current) use of anticoagulants; Z79.02 Long term (current) use of antithrombotics/antiplatelets; Z79.4 Long term (current) use of insulin; Z79.51 Long term (current) use of inhaled steroids; Z88.0 Allergy status to penicillin; Z88.1 Allergy status to other antibiotic agents; Z88.5 Allergy status to narcotic agent; Z88.8 Allergy status to other drugs, medicaments and biological substances
CPT/HCPCS: 36415; 93005; 80053; 83605; 83735; 84484; 85025; 85610; 85730; 71046; 70491; 99285; 96374; 96375 ×6; 96376; J0360; J1200; J2765; J2930; J2405; J1170; Q9967

== ENCOUNTER 2021-01-31 18:32 | Observation (INO) | payer MEDICARE, OTHER ==
[2021-01-31 19:08] LABS: Basophils % (A) 1 %; Eosinophils # (A) 0.1 k/uL (0-0.7); Eosinophils % (A) 2 %; HCT 38.8 % (34.0-46.0); HGB 12.1 gm/dL (11.4-16.0); Hypochromasia Moderate; Lymphocytes % (A) 12 %; MCH 25.2 pg (25.0-35.0); MCHC 31.1 g/dL (31.0-37.0); MCV 81.1 fL (80.0-100.0); Mean Platelet Volume 8.6; Monocytes # (A) 0.3 k/uL (0-1.0); Monocytes % (A) 3 %; Neutrophils % (A) 81 %; Platelet Count 192 k/uL (150-450); RBC 4.79 m/uL (3.80-5.40); RDW 14.7 % (11.5-15.5); WBC 8.6 k/uL (3.8-10.6)
[2021-01-31 19:14] LABS: Albumin 3.6 g/dL (3.5-5.0); Calcium 8.8 mg/dL (8.4-10.2); Magnesium 1.5 mg/dL (1.6-2.3); Total Bilirubin 0.8 mg/dL (0.2-1.3)
[2021-01-31 19:22] LABS: INR 1.1 (<1.2); Partial Thromboplastin Time 22.1 sec (22.0-30.0); Prothrombin Time 11.7 sec (9.0-12.0)
[2021-01-31 19:51] LABS: Potassium 3.6 mmol/L (3.5-5.1)
--- NOTE | 2021-01-31 20:21 | ED ---
General Adult HPI - General Chief complaint: Chest Pain Stated complaint: chest pain/sob Time Seen by Provider: 01/31/21 19:49 Source: patient Mode of arrival: wheelchair Limitations: no limitations - History of Present Illness Initial comments: Dictation was produced using [employer] dictation software. please excuse any grammatical, word or spelling errors. Chief Complaint: Patient is a 40-year-old female presents with chest pain and lower extremity swelling History of Present Illness: Is 40-year-old female she has multiple comorbidities including atrial fibrillation, coronary artery disease, myocardial infarction. She presents emergency department for laboratory swelling and chest pain. States she fell in shower today because of chest pain she experienced. She states it is sharp nonradiating. No associated nausea or diaphoresis. She states not reproducible. Nonpleuritic just complains of swelling to her bilateral lower extremities. She states her primary care doctor has been given her Lasix but her swelling has not been improving. Denies any shortness of breath The ROS documented in this emergency department record has been reviewed and confirmed by me. Those systems with pertinent positive or negative responses have been documented in the HPI. All other systems are other negative and/or noncontributory. PHYSICAL EXAM: General Impression: Alert and oriented x3, not in acute distress HEENT: Normocephalic atraumatic, extra-ocular movements intact, pupils equal and reactive to light bilaterally, mucous membranes moist. Cardiovascular: Heart regular rate and rhythm Chest: Able to complete full sentences, no retractions, no tachypnea Abdomen: abdomen soft, non-tender, non-distended, no organomegaly Musculoskeletal: Pulses present and equal in all extremities, no peripheral edema Motor: no focal deficits noted Neurological: CN II-XII grossly intact, no focal motor or sensory deficits noted Skin: Intact with no visualized rashes Psych: Normal affect and mood ED course: 40-year-old female past medical history of coronary artery disease presents to the emergency department for atypical chest pain typical features and lower extremity swelling. She is not short of breath. Valuation obtained. CBC unremarkable. Coag panel is negative. Metabolic panel is within acceptable limits. Patient's troponin is 0.065. This appears to be within patient's higher range. Given patient's medical history and chest pain patient be admitted for serial troponins. Patient given aspirin. She is well- appearing at the bedside. Patient be admitted for serial troponins and cardiac monitoring. EKG interpretation: Ventricular rate 96, normal sinus rhythm,. 160, QRS 86, QTC 485. No AR prolongation, no QTC prolongation, no ST or T-wave changes noted. EKG compared to 12/28/2020 showing no changes. Overall, this EKG is unremarkable - Related Data Home Medications Medication Instructions Recorded Confirmed Ferrous Sulfate [Iron] 325 mg PO DAILY 07/11/18 10/05/20 carvediloL 25 mg PO BID 07/11/18 10/05/20 Pantoprazole [Protonix] 40 mg PO BID 04/27/19 10/05/20 Semaglutide [Ozempic] 0.5 mg SQ MO 11/19/19 10/05/20 ALPRAZolam [Xanax] 0.5 mg PO DAILY PRN 06/16/20 10/05/20 Albuterol Sulfate [Ventolin HFA] 1 - 2 puff INHALATION RT-QID PRN 06/16/20 10/05/20 Albuterol Nebulized [Ventolin 2.5 mg INHALATION RT-QID PRN 08/07/20 10/05/20 Nebulized] Budesonide/Formoterol Fumarate 2 puff INHALATION RT-BID 08/07/20 10/05/20 [Symbicort 160-4.5 Mcg Inhaler] Fluticasone Nasal [place] [Flonase 1 spray EA NOSTRIL DAILY PRN 08/07/20 10/05/20 Nasal [place]] Insulin Glargine,Hum.rec.anlog 40 unit SQ HS 08/07/20 10/05/20 [Lantus Solostar Pen] Montelukast [Singulair] 10 mg PO DAILY 08/07/20 10/05/20 Multivitamins, Thera [Multivitamin 1 tab PO DAILY 08/07/20 10/05/20 (formulary)] Nitroglycerin [Nitro-Dur 0.4MG/Hr 1 patch TRANSDERM DAILY 08/07/20 10/05/20 Patch] Spironolactone [Aldactone] 25 mg PO DAILY 08/07/20 10/05/20 Ezetimibe [Zetia] 10 mg PO DAILY 10/05/20 10/05/20 Potassium Chloride 20 meq PO DAILY 10/05/20 10/05/20 traZODone HCL [Desyrel] 50 mg PO HS PRN 10/05/20 10/05/20 Previous Rx's Medication Instructions Recorded Atorvastatin [Lipitor] 80 mg PO HS #30 tab 12/06/18 Clopidogrel [Plavix] 75 mg PO DAILY #30 tab 12/06/18 Apixaban [Eliquis] 5 mg PO BID #180 tab 11/21/19 Sertraline [Zoloft] 50 mg PO DAILY #30 tab 11/22/19 Furosemide [Lasix] 40 mg PO BID #60 tab 08/09/20 amLODIPine [Norvasc] 10 mg PO DAILY #30 tab 08/09/20 hydrALAZINE HCL [Apresoline] 100 mg PO TID #90 tab 08/09/20 metOLazone [Zaroxolyn] 2.5 mg PO DAILY #30 tab 08/09/20 Doxycycline [Vibramycin] 100 mg PO BID 14 Days #28 capsule 10/08/20 HYDROcodone/APAP 5-325MG [[place] 1 tab PO Q6HR PRN 3 Days #12 tab 12/28/20 5-325] Allergies Allergy/AdvReac Type Severity Reaction Status Date / Time cephalexin [From Keflex] Allergy Rash/Hives Verified 01/31/21 18:39 codeine Allergy Rash/Hives Verified 01/31/21 18:39 Iodine and Iodide Containing Allergy Rash/Hives Verified 01/31/21 18:39 Produc Penicillins Allergy Rash/Hives Verified 01/31/21 18:39 tramadol Allergy Rash/Hives Verified 01/31/21 18:39 Review of Systems ROS Statement: Those systems with pertinent positive or pertinent negative responses have been documented in the HPI. ROS Other: All systems not noted in ROS Statement are negative. Past Medical History Past Medical History: Atrial Fibrillation, Asthma, Coronary Artery Disease (CAD), Diabetes Mellitus, GERD/Reflux, Hyperlipidemia, Hypertension, Myocardial Infarction ([place]), Pulmonary Embolus ([place]) Additional Past Medical History / Comment(s): peptic ulcer, gall stones, kidney stone, childhood leukemia, [place] X7 Last Myocardial Infarction Date:: 05/01/2019 History of Any Multi-Drug Resistant Organisms: None Reported Past Surgical History: Section, Heart Catheterization With Stent, Joint Replacement, Tonsillectomy, Tubal Ligation Additional Past Surgical History / Comment(s): 4 stents, partial right knee replacement Past Anesthesia/Blood Transfusion Reactions: No Reported Reaction Date of Last Stent Placement:: 08/02/18 Past Psychological History: Anxiety, Bipolar, Depression, Schizophrenia Smoking Status: Never smoker Past Alcohol Use History: None Reported Past Drug Use History: None Reported - Past Family History Father Family Medical History: Hyperlipidemia, Hypertension Additional Family Medical History / Comment(s): pins in knee, heart stents x 4 General Exam Limitations: no limitations Course Vital Signs 01/31/21 01/31/21 18:36 21:11 Temperature 97.9 F Pulse Rate 98 94 Respiratory 26 H 18 Rate Blood Pressure 124/82 160/127 O2 Sat by Pulse 99 97 Oximetry Medical Decision Making - Lab Data Result diagrams: 01/31/21 18:54 01/31/21 18:54 Lab Results 01/31/21 01/31/21 01/31/21 Range/Units 18:54 18:54 18:54 WBC 8.6 (3.8-10.6) k/uL RBC 4.79 (3.80-5.40) m/uL Hgb 12.1 (11.4-16.0) gm/dL Hct 38.8 (34.0-46.0) % MCV 81.1 (80.0-100.0) fL MCH 25.2 (25.0-35.0) pg MCHC 31.1 (31.0-37.0) g/dL RDW 14.7 (11.5-15.5) % Plt Count 192 (150-450) k/uL MPV 8.6 Neutrophils % 81 % Lymphocytes % 12 % Monocytes % 3 % Eosinophils % 2 % Basophils % 1 % Neutrophils # 7.0 (1.3-7.7) k/uL Lymphocytes # 1.0 (1.0-4.8) k/uL Monocytes # 0.3 (0-1.0) k/uL Eosinophils # 0.1 (0-0.7) k/uL Basophils # 0.0 (0-0.2) k/uL Hypochromasia Moderate PT 11.7 (9.0-12.0) sec INR 1.1 (<1.2) APTT 22.1 (22.0-30.0) sec Sodium 136 L (137-145) mmol/L Potassium 3.6 (3.5-5.1) mmol/L Chloride 102 (98-107) mmol/L Carbon Dioxide 26 (22-30) mmol/L Anion Gap 8 mmol/L BUN 20 H (7-17) mg/dL Creatinine 1.09 H (0.52-1.04) mg/dL Est GFR (CKD-EPI)AfAm 73 (>60 ml/min/1.73 sqM) Est GFR (CKD-EPI)NonAf 64 (>60 ml/min/1.73 sqM) Glucose 226 H (74-99) mg/dL Calcium 8.8 (8.4-10.2) mg/dL Magnesium 1.5 L (1.6-2.3) mg/dL Total Bilirubin 0.8 (0.2-1.3) mg/dL AST 19 (14-36) U/L ALT 17 (4-34) U/L Alkaline Phosphatase 52 (38-126) U/L Troponin I (0.000-0.034) ng/mL Total Protein 6.0 L (6.3-8.2) g/dL Albumin 3.6 (3.5-5.0) g/dL 01/31/21 Range/Units 18:54 WBC (3.8-10.6) k/uL RBC (3.80-5.40) m/uL Hgb (11.4-16.0) gm/dL Hct (34.0-46.0) % MCV (80.0-100.0) fL MCH (25.0-35.0) pg MCHC (31.0-37.0) g/dL RDW (11.5-15.5) % Plt Count (150-450) k/uL MPV Neutrophils % % Lymphocytes % % Monocytes % % Eosinophils % % Basophils % % Neutrophils # (1.3-7.7) k/uL Lymphocytes # (1.0-4.8) k/uL Monocytes # (0-1.0) k/uL Eosinophils # (0-0.7) k/uL Basophils # (0-0.2) k/uL Hypochromasia PT (9.0-12.0) sec INR (<1.2) APTT (22.0-30.0) sec Sodium (137-145) mmol/L Potassium (3.5-5.1) mmol/L Chloride (98-107) mmol/L Carbon Dioxide (22-30) mmol/L Anion Gap mmol/L BUN (7-17) mg/dL Creatinine (0.52-1.04) mg/dL Est GFR (CKD-EPI)AfAm (>60 ml/min/1.73 sqM) Est GFR (CKD-EPI)NonAf (>60 ml/min/1.73 sqM) Glucose (74-99) mg/dL Calcium (8.4-10.2) mg/dL Magnesium (1.6-2.3) mg/dL Total Bilirubin (0.2-1.3) mg/dL AST (14-36) U/L ALT (4-34) U/L Alkaline Phosphatase (38-126) U/L Troponin I 0.065 H* (0.000-0.034) ng/mL Total Protein (6.3-8.2) g/dL Albumin (3.5-5.0) g/dL Disposition Clinical Impression: Chest pain Disposition: ADMITTED IP TO THIS HOSP Condition: Fair Referrals: Odell Sena MD [Primary Care Provider] - 1-2 days
--- NOTE | 2021-01-31 20:58 | XR ---
EXAMINATION TYPE: XR chest 1V portable DATE OF EXAM: 01/31/2021 COMPARISON: 12/28/2020 HISTORY: Chest pain TECHNIQUE: FINDINGS: Heart is enlarged. There is no heart failure. Lungs are clear of consolidation. There are n o hilar masses. There are chest leads. Bony thorax is intact. IMPRESSION: Cardiomegaly. No change compared to old exam.
[2021-01-31] MEDS ORDERED: ASPIRIN 81 MG PO STA (22:04)
[2021-01-31] MEDS ORDERED: NITROGLYCERIN SL TABS 0.4 MG TAB SUBLINGUAL PRN (22:04)
[2021-01-31 22:27] LABS: Basophils % (A) 0 %; Eosinophils # (A) 0.2 k/uL (0-0.7); Eosinophils % (A) 2 %; HCT 40.1 % (34.0-46.0); HGB 12.3 gm/dL (11.4-16.0); Hypochromasia Moderate; Lymphocytes # (A) 1.3 k/uL (1.0-4.8); Lymphocytes % (A) 16 %; MCH 24.9 pg (25.0-35.0); MCHC 30.6 g/dL (31.0-37.0); MCV 81.5 fL (80.0-100.0); Mean Platelet Volume 8.6; Monocytes # (A) 0.3 k/uL (0-1.0); Monocytes % (A) 4 %; Neutrophils # (A) 6.4 k/uL (1.3-7.7); Neutrophils % (A) 76 %; Platelet Count 217 k/uL (150-450); RBC 4.92 m/uL (3.80-5.40); RDW 14.5 % (11.5-15.5); WBC 8.4 k/uL (3.8-10.6)
[2021-01-31 23:47] LABS: Calcium 8.8 mg/dL (8.4-10.2)
[2021-02-01 00:22] LABS: Potassium 4.5 mmol/L (3.5-5.1)
[2021-02-01 08:48] LABS: Glucose,Whole Blood 168 mg/dL (75-99)
[2021-02-01] MEDS ORDERED: ALBUTEROL NEBULIZED 2.5 MG/3 ML INHALATION PRN (09:55)
[2021-02-01] MEDS ORDERED: ALBUTEROL SULFATE INHALATION PRN (09:55)
[2021-02-01] MEDS ORDERED: traZODone HCL 50 MG TAB PO PRN (09:56)
[2021-02-01] MEDS ORDERED: FLUTICASONE 50MCG/SPRAY NASAL 16GM EA NOSTRIL PRN (09:56)
[2021-02-01] MEDS ORDERED: ALPRAZolam 0.5 MG TAB PO PRN (09:56)
[2021-02-01] MEDS: CLOPIDOGREL 75 MG TAB PO SCH (11:40)
[2021-02-01] MEDS: APIXABAN 5 MG TAB PO SCH ×2 (11:40→21:14)
[2021-02-01] MEDS: hydrALAZINE HCL 50 MG TAB PO SCH ×3 (11:41→21:13)
[2021-02-01] MEDS: SPIRONOLACTONE 25 MG TAB PO SCH (11:41)
[2021-02-01] MEDS: metOLazone 2.5 MG TAB PO SCH (11:41)
[2021-02-01] MEDS: FUROSEMIDE 40 MG TAB PO SCH ×2 (11:41→16:06)
[2021-02-01] MEDS: amLODIPine 10 MG TAB PO SCH (11:41)
[2021-02-01] MEDS: NITROGLYCERIN 0.4MG/HR PATCH TRANSDERM SCH (11:41)
[2021-02-01] MEDS: ONDANSETRON 4 MG/2 ML VIAL IVP PRN (11:49)
[2021-02-01 11:56] LABS: Chol/HDL Ratio 4.08 Ratio; VLDL Calculation 17.22 mg/dL (5.00-40.00)
[2021-02-01] MEDS: carvediloL 12.5 MG TAB PO SCH (18:13)
[2021-02-01] MEDS ORDERED: Potassium Replacement Protocol 1 EACH MISC MISCELLANE PRN ×2 (18:36→20:57)
[2021-02-01] MEDS ORDERED: Magnesium Replacement Protocol 1 EACH MISC MISCELLANE PRN (18:36)
[2021-02-01 19:38] LABS: Magnesium 1.4 mg/dL (1.6-2.3)
[2021-02-01 19:55] LABS: Glucose,Whole Blood 253 mg/dL (75-99)
[2021-02-01] MEDS: SYMBICORT 160-4.5 MCG INHALER INHALATION SCH (19:55)
[2021-02-01] MEDS ORDERED: INSULIN DETEMIR (LEVEMIR) 100 UNIT/ML SYR SQ SCH (21:00)
[2021-02-01] MEDS ORDERED: POTASSIUM CHLORIDE ER 20 MEQ TAB.ER PO SCH (21:00)
[2021-02-01] MEDS ORDERED: ATORVASTATIN 80 MG TAB PO SCH (21:00)
--- NOTE | 2021-02-01 21:06 | HP ---
HISTORY AND PHYSICAL CHIEF COMPLAINT: Shortness of breath and chest pressure. HISTORY OF PRESENT ILLNESS: This is another admission for this 40-year-old white female with advanced coronary artery disease and prior myocardial infarctions. She is also an insulin-dependent diabetic and is overweight. For the last 4 or 5 days she has been progressively more short of breath and experienced some pressure-like discomfort in the chest, but nothing like when she had her prior acute coronary events. She came to emergency room, where she did have an elevated troponin. She always states that her blood pressure is normal at home, but in the office it is high and in the emergency room it was 151/103. REVIEW OF SYSTEMS: She denies any diaphoresis, cough, hemoptysis, abdominal pain, vomiting, diarrhea, melena, hematochezia, urinary complaints, etc. Blood sugars have been under fairly good control. PHYSICAL EXAMINATION: Blood pressure is 151/103 with a pulse of 86 and regular, respirations of 36, and she is afebrile. In general she was overweight and in some mild respiratory distress. Skin color is normal. Skin was dry. Head, ears, eyes, nose, mouth and throat were normal. Neck veins could not be assessed due to her enlarged neck. Chest demonstrated scattered rales. The cardiac exam demonstrated normal sinus rhythm. The abdomen is protuberant, soft and nontender. Extremities are normal. There is no significant edema. She is admitted to the hospital with diagnoses: 1. Chest pain. 2. Elevated troponin. 3. Previous myocardial infarctions. 4. Known coronary artery disease. 5. Insulin-dependent diabetes mellitus. 6. Hypertension. 7. Probable congestive heart failure. PLAN: 1. Bedrest. 2. Diuresis. 3. Cardiology consult. MMODL / IJN: [id number] /
--- NOTE | 2021-02-01 21:12 | PN ---
PROGRESS NOTE DATE OF SERVICE: 02/01/2021 CHIEF COMPLAINT: Shortness of breath and chest pain. HISTORY OF PRESENT ILLNESS: This lady is still having some chest pressure and she is short of breath. Third troponin is elevated. She is in sinus rhythm. PHYSICAL EXAMINATION: Blood pressure is 155/100. Chest demonstrates occasional rales at the bases. Cardiac exam is normal. Abdomen is soft, nontender. It is protuberant. IMPRESSION: 1. Acute coronary syndrome. 2. Congestive heart failure. 3. Insulin-dependent diabetes mellitus. PLAN: 1. Await further evaluation by Cardiology. 2. Probably repeat echocardiogram. MMODL / IJN: [id number] /
[2021-02-01] MEDS: PANTOPRAZOLE 40 MG TABLET PO SCH (21:13)
[2021-02-01] MEDS: MAGNESIUM SULFATE-D5W PMX 1 GM in DEXTROSE/WATER 1 100ML.BAG IVPB SCH ×2 (21:14→23:23)
[2021-02-02] MEDS: MAGNESIUM SULFATE-D5W PMX 1 GM in DEXTROSE/WATER 1 100ML.BAG IVPB SCH (01:06)
[2021-02-02 06:14] LABS: Glucose,Whole Blood 115 mg/dL (75-99)
[2021-02-02] MEDS: INSULIN ASPART (NovoLOG) 100 UNIT/ML VIAL SQ SCH ×2 (06:23→11:40)
[2021-02-02] MEDS: carvediloL 12.5 MG TAB PO SCH (06:25)
[2021-02-02 06:29] VITALS: RESP 16
[2021-02-02] MEDS: ONDANSETRON 4 MG/2 ML VIAL IVP PRN (06:37)
[2021-02-02] MEDS: SYMBICORT 160-4.5 MCG INHALER INHALATION SCH (08:18)
[2021-02-02] MEDS: hydrALAZINE HCL 50 MG TAB PO SCH (08:40)
[2021-02-02] MEDS: metOLazone 2.5 MG TAB PO SCH (08:40)
[2021-02-02] MEDS: amLODIPine 10 MG TAB PO SCH (08:41)
[2021-02-02] MEDS: FUROSEMIDE 40 MG TAB PO SCH (08:41)
[2021-02-02] MEDS: SPIRONOLACTONE 25 MG TAB PO SCH (08:41)
[2021-02-02] MEDS: APIXABAN 5 MG TAB PO SCH (08:41)
[2021-02-02] MEDS: CLOPIDOGREL 75 MG TAB PO SCH (08:41)
[2021-02-02] MEDS: PANTOPRAZOLE 40 MG TABLET PO SCH (08:44)
[2021-02-02] MEDS ORDERED: MONTELUKAST 10 MG TAB PO SCH (09:00)
[2021-02-02] MEDS ORDERED: EZETIMIBE 10 MG TAB PO SCH (09:00)
[2021-02-02] MEDS ORDERED: POTASSIUM CHLORIDE ER 20 MEQ TAB.ER PO SCH (09:00)
[2021-02-02] MEDS ORDERED: SERTRALINE 50 MG TAB PO SCH (09:00)
[2021-02-02] MEDS ORDERED: FERROUS SULFATE 325 MG TAB PO SCH (09:00)
[2021-02-02 10:53] LABS: Glucose,Whole Blood 205 mg/dL (75-99)
[2021-02-02] MEDS ORDERED: MAGNESIUM SULFATE-D5W PMX 1 GM in DEXTROSE/WATER 1 100ML.BAG IVPB ONE (11:10)
[2021-02-02] MEDS: NITROGLYCERIN 0.4MG/HR PATCH TRANSDERM SCH (11:40)
--- NOTE | 2021-02-02 13:08 | P.CRDCN ---
History of Present Illness History of present illness: This is a 40-year-old female with a past medical history significant for coronary artery disease with previous stenting, hypertension, hyperlipidemia, congestive heart failure, and LV thrombus on anticoagulation with Eliquis, type 2 diabetes. Patient follows in the office with Dr. Davila. We have been asked to see the patient in consultation for chest pain and elevated troponin. Patient examined at the bedside. Patient presented to the emergency department on 01/31/21, with complaints of chest pain. She describes the chest pain as sharp located in the center/center of her chest. She was in the shower when the pain occurred. It has now resolved. She denies any nausea, diaphoresis, shortness of breath, lightheadedness, dizziness, palpitations. Patient states she also noticed increased lower extremity edema and pedal edema. She states she has not had any increased salt intake. She reports gaining a few pounds over the past week. She does have dyspnea on exertion. She states this pain is different from her prior MIs. For the past 2 days while admitted, her lower extremity edema improved, her breathing has improved and she has no further chest pain. DIAGNOSTICS EKG reveals sinus mechanism with no signs of acute ischemia Chest xray cardiomegaly. No change compared to exam. Laboratory data: CBC unremarkable, d-dimer 0.78, sodium 134, potassium 4.5, BUN 24, serum 0.9, magnesium 1.7, troponin 0.06, 0.05, 0.03, proBNP decreased from 2220 to 1740, covid-19 negative Current home cardiac medications include Eliquis 5 mg twice a day, atorvastatin 80 mg nightly, Plavix 75 mg daily, Lasix 40 mg twice a day, carvedilol 25 mg twice a day, hydralazine 100 mg 3 times a day, metolazone 2.5 mg daily, losartan 100 mg daily Most recent echocardiogram obtained in September 2020 which revealed EF of 4045 percent, apex hypokinesis, mild mitral regurgitation , moderate tricuspid regurgitation. Cardiac catheterization history: 10/05/20 revealed patent stent in LAD and left circumflex, critical stenosis in the first diagonal branch and the fourth obtuse marginal branch without progression compared to 2019. She also underwent cardiac catheterization in November 2019 revealing patent stent to the LAD and circumflex April 2019 with stent placement to LAD REVIEW OF SYSTEMS: At the time of my exam: CONSTITUTIONAL: Denies fever or chills. HEENT: Denies blurred vision, vision changes, or eye pain. Denies hemoptysis CARDIOVASCULAR: + chest pain. Denies orthopnea. Denies PND. Denies palpitations RESPIRATORY: +shortness of breath. GASTROINTESTINAL: Denies abdominal pain. Denies nausea or vomiting. HEMATOLOGIC: Denies bleeding disorders. GENITOURINARY: Denies any blood in urine. SKIN: Denies pruitis. Denies rash. PHYSICAL EXAM: VITAL SIGNS: Reviewed. GENERAL: Well-developed in no acute distress. HEENT: Head is normocephalic. Pupils are equal, round. Sclerae anicteric. Mucous membranes of the mouth are moist. Neck supple. No JVD or thyromegaly LUNGS: Respirations even and unlabored. Lungs clear bilaterally. HEART: Regular rate and rhythm. S1 and S2 heard. ABDOMEN: Soft. Nondistended. Nontender. EXTREMITIES: Normal range of motion. No clubbing or cyanosis. Peripheral pulses intact. 1+ bilateral lower extremity edema NEUROLOGIC: Awake and alert. Oriented x 3. ASSESSMENT: Chest pain, atypical Elevated troponin, not consistent with acute coronary syndrome, no acute ischemia noted on EKG. Acute exacerbation of chronic diastolic heart failure, improved Coronary artery disease with previous PCI to LAD and circumflex History of LV thrombus, on anticoagulation with Eliquis Hypertension Hyperlipidemia Morbid obesity Anxiety Depression Bipolar disorder Hypomagnesemia PLAN: Give 1g IV magnesium Resume home cardiac medications From a cardiology perspective, patient is stable to be discharged home. Follow up with Dr. Davila in 1 week. Past Medical History Past Medical History: Atrial Fibrillation, Asthma, Coronary Artery Disease (CAD), Diabetes Mellitus, GERD/Reflux, Hyperlipidemia, Hypertension, Myocardial Infarction ([place]), Pulmonary Embolus ([place]) Additional Past Medical History / Comment(s): peptic ulcer, gall stones, kidney stone, childhood leukemia, [place] X7 Last Myocardial Infarction Date:: 05/01/2019 History of Any Multi-Drug Resistant Organisms: None Reported Past Surgical History: Section, Heart Catheterization With Stent, Joint Replacement, Tonsillectomy, Tubal Ligation Additional Past Surgical History / Comment(s): 4 stents, partial right knee replacement Past Anesthesia/Blood Transfusion Reactions: No Reported Reaction Date of Last Stent Placement:: 08/02/18 Past Psychological History: Anxiety, Bipolar, Depression, Schizophrenia Smoking Status: Never smoker Past Alcohol Use History: None Reported Past Drug Use History: None Reported Additional Drug Use History / Comment(s): stopped smoking in 2010; only smoked for 4-5 months. - Past Family History Father Family Medical History: Hyperlipidemia, Hypertension Additional Family Medical History / Comment(s): pins in knee, heart stents x 4 Medications and Allergies Home Medications Medication Instructions Recorded Confirmed Type Ferrous Sulfate [Iron] 325 mg PO DAILY 07/11/18 02/01/21 History carvediloL 25 mg PO BID 07/11/18 02/01/21 History Atorvastatin [Lipitor] 80 mg PO HS #30 tab 12/06/18 02/01/21 Rx Clopidogrel [Plavix] 75 mg PO DAILY #30 tab 12/06/18 02/01/21 Rx Semaglutide [Ozempic] 0.5 mg SQ MO 11/19/19 02/01/21 History Apixaban [Eliquis] 5 mg PO BID #180 tab 11/21/19 02/01/21 Rx ALPRAZolam [Xanax] 0.5 mg PO DAILY PRN 06/16/20 02/01/21 History Albuterol Sulfate [Ventolin HFA] 1 - 2 puff INHALATION RT-QID PRN 06/16/20 02/01/21 History Albuterol Nebulized [Ventolin 2.5 mg INHALATION RT-QID PRN 08/07/20 02/01/21 History Nebulized] Budesonide/Formoterol Fumarate 2 puff INHALATION RT-BID 08/07/20 02/01/21 History [Symbicort 160-4.5 Mcg Inhaler] Fluticasone Nasal [place] [Flonase 1 spray EA NOSTRIL DAILY PRN 08/07/20 02/01/21 History Nasal [place]] Insulin Glargine,Hum.rec.anlog 40 unit SQ HS 08/07/20 02/01/21 History [Lantus Solostar Pen] Montelukast [Singulair] 10 mg PO DAILY 08/07/20 02/01/21 History Multivitamins, Thera [Multivitamin 1 tab PO DAILY 08/07/20 02/01/21 History (formulary)] Nitroglycerin [Nitro-Dur 0.4MG/Hr 1 patch TRANSDERM DAILY 08/07/20 02/01/21 History Patch] Furosemide [Lasix] 40 mg PO BID #60 tab 08/09/20 02/01/21 Rx hydrALAZINE HCL [Apresoline] 100 mg PO TID #90 tab 08/09/20 02/01/21 Rx metOLazone [Zaroxolyn] 2.5 mg PO DAILY #30 tab 08/09/20 02/01/21 Rx traZODone HCL [Desyrel] 50 mg PO HS PRN 10/05/20 02/01/21 History HYDROcodone/APAP 5-325MG [[place] 1 tab PO Q6HR PRN 3 Days #12 tab 12/28/20 02/01/21 Rx 5-325] HYDROmorphone [Dilaudid] 4 mg PO Q6H PRN 02/01/21 02/01/21 History Losartan Potassium [Cozaar] 100 mg PO DAILY 02/01/21 02/01/21 History rOPINIRole HCL [Requip] 0.25 mg PO DAILY 02/01/21 02/01/21 History Allergies Allergy/AdvReac Type Severity Reaction Status Date / Time cephalexin [From Keflex] Allergy Rash/Hives Verified 01/31/21 18:39 codeine Allergy Rash/Hives Verified 01/31/21 18:39 Iodine and Iodide Containing Allergy Rash/Hives Verified 01/31/21 18:39 Produc Penicillins Allergy Rash/Hives Verified 01/31/21 18:39 tramadol Allergy Rash/Hives Verified 01/31/21 18:39 Physical Exam Vitals: Vital Signs Temp Pulse Pulse Resp BP BP Pulse Ox 02/02/21 08:35 97.9 F 80 16 108/71 96 02/02/21 04:00 98.2 F 84 16 125/86 98 02/02/21 00:00 97.9 F 84 18 142/79 95 02/01/21 20:00 97.9 F 81 18 108/69 96 02/01/21 16:01 98.0 F 100 18 162/98 98 02/01/21 13:55 96 18 164/102 98 02/01/21 11:56 98 18 180/102 98 Intake and Output 02/01/21 02/02/21 02/02/21 22:59 06:59 14:59 Intake Total 240 Balance 240 Intake: Oral 240 Other: # Voids 1 1 Weight 98.2 kg Results 01/31/21 21:44 02/01/21 18:53 Lipids 02/01/21 Range/Units 05:08 Triglycerides 86.10 (0.00-149.00) mg/dL Cholesterol 138.00 (0.00-200.00) mg/dL HDL Cholesterol 33.80 L (40.00-60.00) mg/dL Cholesterol/HDL Ratio 4.08 Ratio Comprehensive Metabolic Panel 02/01/21 Range/Units 18:53 Potassium 4.0 (3.5-5.1) mmol/L Current Medications Generic Name Dose Route Start Last Admin Trade Name Freq PRN Reason Stop Dose Admin Albuterol Sulfate 2.5 mg 02/01/21 09:55 Albuterol Nebulized 2.5 Mg/3 Ml INHALATION RT-QID PRN Shortness Of Breath Alprazolam 0.5 mg 02/01/21 09:56 Alprazolam 0.5 Mg Tab PO DAILY PRN Moderate Anxiety Amlodipine Besylate 10 mg 02/01/21 10:00 02/02/21 08:41 Amlodipine 10 Mg Tab PO 10 mg DAILY [facility] Administration Apixaban 5 mg 02/01/21 10:00 02/02/21 08:41 Apixaban 5 Mg Tab PO 5 mg BID [facility] Administration Protocol Atorvastatin Calcium 80 mg 02/01/21 21:00 02/01/21 21:13 Atorvastatin 80 Mg Tab PO 80 mg HS [facility] Administration Budesonide/Formoterol Fumarate 2 puff 02/01/21 20:00 02/02/21 08:18 Symbicort 160-4.5 Mcg Inhaler INHALATION 2 puff RT-BID [place] Administration Carvedilol 25 mg 02/01/21 17:30 02/02/21 06:25 Carvedilol 12.5 Mg Tab PO 25 mg AC-BID [place] Administration Clopidogrel Bisulfate 75 mg 02/01/21 10:00 02/02/21 08:41 Clopidogrel 75 Mg Tab PO 75 mg DAILY [facility] Administration Ezetimibe 10 mg 02/02/21 09:00 02/02/21 08:41 Ezetimibe 10 Mg Tab PO 10 mg DAILY [facility] Administration Ferrous Sulfate 325 mg 02/02/21 09:00 02/02/21 08:41 Ferrous Sulfate 325 Mg Tab PO 325 mg DAILY [facility] Administration Fluticasone Propionate 1 spray 02/01/21 09:56 Fluticasone 50mcg/[place] Nasal 16gm EA NOSTRIL DAILY PRN Congestion Furosemide 40 mg 02/01/21 10:00 02/02/21 08:41 Furosemide 40 Mg Tab PO 40 mg BID@0900,1600 [facility] Administration Hydralazine HCl 100 mg 02/01/21 10:00 02/02/21 08:40 Hydralazine Hcl 50 Mg Tab PO 100 mg TID [place] Administration Insulin Aspart 0 unit 02/02/21 07:30 02/02/21 06:23 Insulin Aspart (Novolog) 100 Unit/Ml Vial SQ Not Given ACHS [facility] Protocol Insulin Detemir 40 unit 02/01/21 21:00 02/01/21 21:14 Insulin Detemir (Levemir) 100 Unit/Ml Syr SQ 40 unit HS [place] Administration Metolazone 2.5 mg 02/01/21 10:00 02/02/21 08:40 Metolazone 2.5 Mg Tab PO 2.5 mg DAILY [facility] Administration Miscellaneous Information 1 each 02/01/21 18:36 Magnesium Replacement Protocol 1 Each Misc MISCELLANE DAILY PRN Per Protocol Protocol Miscellaneous Information 1 each 02/01/21 18:36 Potassium Replacement Protocol 1 Each Misc MISCELLANE DAILY PRN Per Protocol Protocol Miscellaneous Information 1 each 02/01/21 20:57 Potassium Replacement Protocol 1 Each Misc MISCELLANE DAILY PRN Per Protocol Protocol Montelukast Sodium 10 mg 02/02/21 09:00 02/02/21 08:41 Montelukast 10 Mg Tab PO 10 mg DAILY [place] Administration Nitroglycerin 0.4 mg 01/31/21 22:04 Nitroglycerin Sl Tabs 0.4 Mg Tab SUBLINGUAL Q5M PRN Chest Pain Nitroglycerin 1 patch 02/01/21 12:00 02/01/21 11:41 Nitroglycerin 0.4mg/Hr Patch TRANSDERM 1 patch DAILY@1200 [facility] Administration Ondansetron HCl 4 mg 02/01/21 09:54 02/02/21 06:37 Ondansetron 4 Mg/2 Ml Vial IVP 4 mg Q6HR PRN Administration Nausea And Vomiting Pantoprazole Sodium 40 mg 02/01/21 21:00 02/02/21 08:44 Pantoprazole 40 Mg Tablet PO 40 mg BID [place] Administration Potassium Chloride 20 meq 02/02/21 09:00 02/02/21 08:40 Potassium Chloride Er 20 Meq Tab.Er PO 20 meq DAILY [place] Administration Sertraline HCl 50 mg 02/02/21 09:00 02/02/21 08:40 Sertraline 50 Mg Tab PO 50 mg DAILY [place] Administration Spironolactone 25 mg 02/01/21 10:00 02/02/21 08:41 Spironolactone 25 Mg Tab PO 25 mg DAILY [place] Administration Trazodone HCl 50 mg 02/01/21 09:56 Trazodone Hcl 50 Mg Tab PO HS PRN Insomnia Intake and Output 02/01/21 02/02/21 02/02/21 22:59 06:59 14:59 Intake Total 240 Balance 240 Intake: Oral 240 Other: # Voids 1 1 Weight 98.2 kg 01/31/21 21:44 02/01/21 18:53
[2021-02-02 14:07] VITALS: BP 133/86; PULSE 82; TEMP 98.1
--- NOTE | 2021-02-02 22:39 | DS ---
DISCHARGE SUMMARY CHIEF COMPLAINT: Chest pain and shortness of breath. HISTORY OF PRESENT ILLNESS AND PHYSICAL EXAMINATION: Details of this lady's history and physical can be found in the initial workup. LABORATORY STUDIES: While she was in the hospital, she had laboratory studies, details of which can be found in the laboratory section of her chart. COURSE IN THE HOSPITAL: After admission, she was placed on bedrest, started on intravenous fluids. Troponins were elevated. However, so was her BNP and it was felt that this was more likely not due to an acute myocardial infarction, but rather to her congestive heart failure and hypertension. She was seen by Cardiology and stabilized. It was felt that she could be discharged. She will go home on her usual diet and activity and additional diuretics for her heart failure and manage of her hypertension. She will be seen in the office in several days. At that time, she will be started on Farxiga or Jardiance and concerted effort will be made to hold her blood pressure down. She states when she comes into the office, the blood pressure is, "good at home", but in the office it is always high. FINAL DIAGNOSES: 1. Acute coronary syndrome. 2. HFpHF. 3. Atherosclerotic cardiomyopathy. 4. Coronary artery disease. 5. Insulin dependent diabetes mellitus. 6. Uncontrolled hypertension. OPERATIONS: None. CONSULTATION: Cardiology. She is improved. MMELIZABETHL / SHERIFN: [id number] /
== END 2021-02-02 15:00 | disposition home or self-care (01) ==
LOC: EC 18:32 → 3SCARD 22:04
PROVIDERS: ADMIT Family Medicine; ATTEND Family Medicine
DX: I24.9 Acute ischemic heart disease, unspecified (principal); I11.0 Hypertensive heart disease with heart failure; I50.33 Acute on chronic diastolic (congestive) heart failure; I25.10 Atherosclerotic heart disease of native coronary artery without angina pectoris; I48.91 Unspecified atrial fibrillation; R79.89 Other specified abnormal findings of blood chemistry; I08.1 Rheumatic disorders of both mitral and tricuspid valves; E83.42 Hypomagnesemia; E11.9 Type 2 diabetes mellitus without complications; E78.5 Hyperlipidemia, unspecified; J45.909 Unspecified asthma, uncomplicated; I25.2 Old myocardial infarction; K21.9 Gastro-esophageal reflux disease without esophagitis; K80.20 Calculus of gallbladder without cholecystitis without obstruction; F20.9 Schizophrenia, unspecified; F31.9 Bipolar disorder, unspecified; F41.9 Anxiety disorder, unspecified; E66.01 Morbid (severe) obesity due to excess calories; Z68.39 Body mass index [BMI] 39.0-39.9, adult; Z87.891 Personal history of nicotine dependence; W18.2XXA Fall in (into) shower or empty bathtub, initial encounter; Y93.E1 Activity, personal bathing and showering; Z20.822 Contact with and (suspected) exposure to COVID-19; Z79.51 Long term (current) use of inhaled steroids; Z79.4 Long term (current) use of insulin; Z79.01 Long term (current) use of anticoagulants; Z79.02 Long term (current) use of antithrombotics/antiplatelets; Z79.899 Other long term (current) drug therapy; Z88.1 Allergy status to other antibiotic agents; Z88.5 Allergy status to narcotic agent; Z88.0 Allergy status to penicillin; Z91.048 Other nonmedicinal substance allergy status; Z86.711 Personal history of pulmonary embolism; Z87.11 Personal history of peptic ulcer disease; Z87.442 Personal history of urinary calculi; Z85.6 Personal history of leukemia; Z96.651 Presence of right artificial knee joint; Z98.51 Tubal ligation status; Z95.5 Presence of coronary angioplasty implant and graft; Z98.891 History of uterine scar from previous surgery; Z98.890 Other specified postprocedural states; Z82.49 Family history of ischemic heart disease and other diseases of the circulatory system; Z83.49 Family history of other endocrine, nutritional and metabolic diseases
CPT/HCPCS: 96376; 96366 ×2; 96365; 96375; 99285; 36415; 94640 ×2; 93005; 85379; 83880 ×2; 80061; 80053; 80048; 83735 ×3; 84132; 84484 ×2; 85025; 85610; 85730; 87635; 71045; G0378 ×3; J2405 ×2; J3475 ×2

== ENCOUNTER 2021-03-06 14:25 | Inpatient (IN) | payer MEDICARE, OTHER ==
--- NOTE | 2021-03-06 15:41 | XR ---
EXAMINATION TYPE: XR chest 2V DATE OF EXAM: 03/06/2021 COMPARISON: 01/31/2021 HISTORY: Chest pain TECHNIQUE: 2 views FINDINGS: Heart is enlarged. There is no heart failure. Costophrenic angles are clear. Bony thorax is intact. IMPRESSION: Cardiomegaly. No heart failure. No change.
[2021-03-06] MEDS ORDERED: methylPREDNISolone SOD SUCCI 125 MG/2 ML VIAL IV STA (17:29)
[2021-03-06] MEDS ORDERED: ALBUTEROL HFA INHALER INHALATION STA (17:29)
--- NOTE | 2021-03-06 18:41 | ED ---
General Adult HPI - General Chief complaint: Chest Pain Stated complaint: Chest pain/building up with fluid Time Seen by Provider: 03/06/21 17:16 Source: patient Mode of arrival: wheelchair - History of Present Illness Initial comments: 40-year-old female with a past medical history of coronary artery disease, NC, heart failure presents to the emergency room for a chief complaint of swelling. Patient states that she has had worsening swelling in legs. Patient states she also has a cough and congestion. She denies fevers. She denies shortness of breath. Patient does also have some chest pressure. Patient has no other complaints at this time including shortness of breath, abdominal pain, nausea or vomiting, headache, or visual changes. - Related Data Home Medications Medication Instructions Recorded Confirmed Ferrous Sulfate [Iron] 325 mg PO DAILY 07/11/18 03/06/21 carvediloL 25 mg PO BID 07/11/18 03/06/21 Semaglutide [Ozempic] 0.5 mg SQ MO 11/19/19 03/06/21 ALPRAZolam [Xanax] 0.5 mg PO BID PRN 06/16/20 03/06/21 Albuterol Sulfate [Ventolin HFA] 1 - 2 puff INHALATION RT-QID PRN 06/16/20 03/06/21 Albuterol Nebulized [Ventolin 2.5 mg INHALATION RT-QID PRN 08/07/20 03/06/21 Nebulized] Budesonide/Formoterol Fumarate 2 puff INHALATION RT-BID 08/07/20 03/06/21 [Symbicort 160-4.5 Mcg Inhaler] Fluticasone Nasal [place] [Flonase 1 spray EA NOSTRIL DAILY PRN 08/07/20 03/06/21 Nasal [place]] Insulin Glargine,Hum.rec.anlog 40 unit SQ HS 08/07/20 03/06/21 [Lantus Solostar Pen] Montelukast [Singulair] 10 mg PO HS 08/07/20 03/06/21 Multivitamins, Thera [Multivitamin 1 tab PO DAILY 08/07/20 03/06/21 (formulary)] Nitroglycerin [Nitro-Dur 0.4MG/Hr 1 patch TRANSDERM Q48H PRN 08/07/20 03/06/21 Patch] traZODone HCL [Desyrel] 50 mg PO HS 10/05/20 03/06/21 Losartan Potassium [Cozaar] 100 mg PO DAILY 02/01/21 03/06/21 rOPINIRole HCL [Requip] 0.25 mg PO HS 02/01/21 03/06/21 Aspirin EC [Ecotrin Low Dose] 81 mg PO DAILY 03/06/21 03/06/21 Furosemide [Lasix] 40 mg PO BID PRN 03/06/21 03/06/21 Spironolactone [Aldactone] 25 mg PO DAILY 03/06/21 03/06/21 metOLazone [Zaroxolyn] 5 mg PO DAILY 03/06/21 03/06/21 Previous Rx's Medication Instructions Recorded Atorvastatin [Lipitor] 80 mg PO HS #30 tab 12/06/18 Clopidogrel [Plavix] 75 mg PO DAILY #30 tab 12/06/18 Apixaban [Eliquis] 5 mg PO BID #180 tab 11/21/19 hydrALAZINE HCL [Apresoline] 100 mg PO TID #90 tab 08/09/20 HYDROcodone/APAP 5-325MG [Bighorn 1 tab PO Q6HR PRN 3 Days #12 tab 12/28/20 5-325] Ezetimibe [Zetia] 10 mg PO DAILY #30 tab 02/02/21 Nitroglycerin Sl Tabs [Nitrostat] 0.4 mg SUBLINGUAL Q5M PRN #20 tab 02/02/21 Pantoprazole [Protonix] 40 mg PO BID #60 tab 02/02/21 Potassium Chloride ER [K-Dur 20] 20 meq PO DAILY #30 tablet 02/02/21 Sertraline [Zoloft] 50 mg PO DAILY #30 tab 02/02/21 amLODIPine [Norvasc] 10 mg PO DAILY #30 tab 02/02/21 Allergies Allergy/AdvReac Type Severity Reaction Status Date / Time cephalexin [From Keflex] Allergy Rash/Hives Verified 03/06/21 18:51 codeine Allergy Rash/Hives Verified 03/06/21 18:51 Iodine and Iodide Containing Allergy Rash/Hives Verified 03/06/21 18:51 Produc Penicillins Allergy Rash/Hives Verified 03/06/21 18:51 tramadol Allergy Rash/Hives Verified 03/06/21 18:51 Review of Systems ROS Statement: Those systems with pertinent positive or pertinent negative responses have been documented in the HPI. ROS Other: All systems not noted in ROS Statement are negative. Past Medical History Past Medical History: Atrial Fibrillation, Asthma, Coronary Artery Disease (CAD), Diabetes Mellitus, GERD/Reflux, Hyperlipidemia, Hypertension, Myocardial Infarction (NC), Pulmonary Embolus (PE) Additional Past Medical History / Comment(s): peptic ulcer, gall stones, kidney stone, childhood leukemia, NC X7 Last Myocardial Infarction Date:: 05/01/2019 History of Any Multi-Drug Resistant Organisms: None Reported Past Surgical History: Section, Heart Catheterization With Stent, Joint Replacement, Tonsillectomy, Tubal Ligation Additional Past Surgical History / Comment(s): 4 stents, partial right knee replacement Past Anesthesia/Blood Transfusion Reactions: No Reported Reaction Date of Last Stent Placement:: 08/02/18 Past Psychological History: Anxiety, Bipolar, Depression, Schizophrenia Smoking Status: Never smoker Past Alcohol Use History: None Reported Past Drug Use History: None Reported - Past Family History Father Family Medical History: Hyperlipidemia, Hypertension Additional Family Medical History / Comment(s): pins in knee, heart stents x 4 General Exam General appearance: alert, in no apparent distress Head exam: Present: atraumatic Eye exam: Present: normal appearance, PERRL, EOMI. Absent: scleral icterus, conjunctival injection ENT exam: Present: normal exam, mucous membranes moist Neck exam: Present: normal inspection, full ROM. Absent: tenderness Respiratory exam: Present: normal lung sounds bilaterally. Absent: respiratory distress, wheezes Cardiovascular Exam: Present: regular rate, normal rhythm, normal heart sounds GI/Abdominal exam: Present: soft, normal bowel sounds. Absent: distended, tenderness Extremities exam: Present: pedal edema Course Vital Signs 03/06/21 03/06/21 14:43 17:50 Temperature 98.4 F Pulse Rate 98 77 Respiratory 18 18 Rate Blood Pressure 135/86 123/78 O2 Sat by Pulse 99 95 Oximetry EKG Findings - EKG Comments: EKG Findings:: Normal sinus rhythm, ventricular rate 96, ND interval 132, QTC 497 Medical Decision Making - Medical Decision Making Vitals are stable. EKG shows a normal sinus rhythm. Nonischemic. CBC unremarkable. CMP shows maybe a slight HPI. Magnesium 1.5. This will be replaced. Troponin is positive. BNP 1700. Chest x-ray negative. RSV detected. Patient is currently taking eliquis. We'll admit for repeat troponin but will not start on heparin given she is already anticoagulated. We will consult cardiology. We will have her do albuterol treatments for wheezing as well as Solu-Medrol. I will replace her magnesium. - Lab Data Result diagrams: 03/06/21 18:16 03/06/21 18:16 Lab Results 03/06/21 03/06/21 03/06/21 Range/Units 18:16 18:16 18:16 WBC 6.5 (3.8-10.6) k/uL RBC 5.19 (3.80-5.40) m/uL Hgb 13.0 (11.4-16.0) gm/dL Hct 42.0 (34.0-46.0) % MCV 81.0 (80.0-100.0) fL MCH 25.0 (25.0-35.0) pg MCHC 30.8 L (31.0-37.0) g/dL RDW 15.1 (11.5-15.5) % Plt Count 238 (150-450) k/uL MPV 9.2 Neutrophils % 78 % Lymphocytes % 12 % Monocytes % 5 % Eosinophils % 3 % Basophils % 1 % Neutrophils # 5.1 (1.3-7.7) k/uL Lymphocytes # 0.8 L (1.0-4.8) k/uL Monocytes # 0.3 (0-1.0) k/uL Eosinophils # 0.2 (0-0.7) k/uL Basophils # 0.0 (0-0.2) k/uL Hypochromasia Marked PT (9.0-12.0) sec INR (<1.2) APTT (22.0-30.0) sec Sodium 135 L (137-145) mmol/L Potassium 3.7 (3.5-5.1) mmol/L Chloride 100 (98-107) mmol/L Carbon Dioxide 24 (22-30) mmol/L Anion Gap 11 mmol/L BUN 34 H (7-17) mg/dL Creatinine 1.39 H (0.52-1.04) mg/dL Est GFR (CKD-EPI)AfAm 54 (>60 ml/min/1.73 sqM) Est GFR (CKD-EPI)NonAf 47 (>60 ml/min/1.73 sqM) Glucose 174 H (74-99) mg/dL Calcium 8.6 (8.4-10.2) mg/dL Magnesium 1.5 L (1.6-2.3) mg/dL Total Bilirubin 0.6 (0.2-1.3) mg/dL AST 31 (14-36) U/L ALT 20 (4-34) U/L Alkaline Phosphatase 45 (38-126) U/L Troponin I 0.110 H* (0.000-0.034) ng/mL NT-Pro-B Natriuret Pep pg/mL Total Protein 6.0 L (6.3-8.2) g/dL Albumin 3.4 L (3.5-5.0) g/dL Influenza Type A (PCR) (Not Detectd) Influenza Type B (PCR) (Not Detectd) RSV (PCR) (Not Detectd) SARS-CoV-2 (PCR) (Not Detectd) 03/06/21 03/06/21 03/06/21 Range/Units 18:16 18:16 18:36 WBC (3.8-10.6) k/uL RBC (3.80-5.40) m/uL Hgb (11.4-16.0) gm/dL Hct (34.0-46.0) % MCV (80.0-100.0) fL MCH (25.0-35.0) pg MCHC (31.0-37.0) g/dL RDW (11.5-15.5) % Plt Count (150-450) k/uL MPV Neutrophils % % Lymphocytes % % Monocytes % % Eosinophils % % Basophils % % Neutrophils # (1.3-7.7) k/uL Lymphocytes # (1.0-4.8) k/uL Monocytes # (0-1.0) k/uL Eosinophils # (0-0.7) k/uL Basophils # (0-0.2) k/uL Hypochromasia PT 11.5 (9.0-12.0) sec INR 1.1 (<1.2) APTT 23.3 (22.0-30.0) sec Sodium (137-145) mmol/L Potassium (3.5-5.1) mmol/L Chloride (98-107) mmol/L Carbon Dioxide (22-30) mmol/L Anion Gap mmol/L BUN (7-17) mg/dL Creatinine (0.52-1.04) mg/dL Est GFR (CKD-EPI)AfAm (>60 ml/min/1.73 sqM) Est GFR (CKD-EPI)NonAf (>60 ml/min/1.73 sqM) Glucose (74-99) mg/dL Calcium (8.4-10.2) mg/dL Magnesium (1.6-2.3) mg/dL Total Bilirubin (0.2-1.3) mg/dL AST (14-36) U/L ALT (4-34) U/L Alkaline Phosphatase (38-126) U/L Troponin I (0.000-0.034) ng/mL NT-Pro-B Natriuret Pep 1790 pg/mL Total Protein (6.3-8.2) g/dL Albumin (3.5-5.0) g/dL Influenza Type A (PCR) Not Detected (Not Detectd) Influenza Type B (PCR) Not Detected (Not Detectd) RSV (PCR) Detected A (Not Detectd) SARS-CoV-2 (PCR) Not Detected (Not Detectd) Disposition Clinical Impression: Elevated troponin, ACS (acute coronary syndrome), Elevated brain natriuretic peptide (BNP) level, CHF exacerbation, RSV (acute bronchiolitis due to respiratory syncytial virus), Hypomagnesemia Disposition: ADMITTED IP TO THIS HOSP Referrals: Odell Sena MD [Primary Care Provider] - 1-2 days Time of Disposition: 20:17
[2021-03-06] MEDS ORDERED: ASPIRIN 81 MG PO STA (18:43)
[2021-03-06 19:08] LABS: Basophils % (A) 1 %; Eosinophils # (A) 0.2 k/uL (0-0.7); Eosinophils % (A) 3 %; Hypochromasia Marked; Lymphocytes # (A) 0.8 k/uL (1.0-4.8); Lymphocytes % (A) 12 %; MCHC 30.8 g/dL (31.0-37.0); Mean Platelet Volume 9.2; Monocytes # (A) 0.3 k/uL (0-1.0); Monocytes % (A) 5 %; Neutrophils # (A) 5.1 k/uL (1.3-7.7); Neutrophils % (A) 78 %; Platelet Count 238 k/uL (150-450); RBC 5.19 m/uL (3.80-5.40); RDW 15.1 % (11.5-15.5); WBC 6.5 k/uL (3.8-10.6)
[2021-03-06 19:18] LABS: Albumin 3.4 g/dL (3.5-5.0); Calcium 8.6 mg/dL (8.4-10.2); Magnesium 1.5 mg/dL (1.6-2.3); Potassium 3.7 mmol/L (3.5-5.1); Total Bilirubin 0.6 mg/dL (0.2-1.3)
[2021-03-06 19:20] LABS: INR 1.1 (<1.2); Partial Thromboplastin Time 23.3 sec (22.0-30.0); Prothrombin Time 11.5 sec (9.0-12.0)
[2021-03-06] MEDS ORDERED: FUROSEMIDE 10 MG/ML 4 ML VIAL IV STA (20:16)
[2021-03-06] MEDS ORDERED: MAGNESIUM SULFATE-D5W PMX 1 GM in DEXTROSE/WATER 1 100ML.BAG IVPB STA (20:16)
[2021-03-06] MEDS ORDERED: FLUTICASONE 50MCG/SPRAY NASAL 16GM EA NOSTRIL PRN (20:20)
[2021-03-06] MEDS ORDERED: ALPRAZolam 0.5 MG TAB PO PRN (20:20)
[2021-03-06] MEDS: methylPREDNISolone SOD SUCCI 125 MG/2 ML VIAL IV SCH (21:47)
[2021-03-06 21:59] LABS: Glucose,Whole Blood 309 mg/dL (75-99)
[2021-03-06] MEDS: PANTOPRAZOLE 40 MG TABLET PO SCH (22:08)
[2021-03-06] MEDS: MONTELUKAST 10 MG TAB PO SCH (22:08)
[2021-03-06] MEDS: ATORVASTATIN 80 MG TAB PO SCH (22:08)
[2021-03-06] MEDS: traZODone HCL 50 MG TAB PO SCH (22:08)
[2021-03-06] MEDS: APIXABAN 5 MG TAB PO SCH (22:09)
[2021-03-06] MEDS: INSULIN ASPART (NovoLOG) 100 UNIT/ML VIAL SQ SCH (22:09)
[2021-03-07] MEDS: IPRATROPIUM-ALBUTEROL 3 ML NEB INHALATION SCH ×5 (00:33→20:05)
[2021-03-07] MEDS: hydrALAZINE HCL 50 MG TAB PO SCH ×4 (02:32→20:20)
[2021-03-07] MEDS: methylPREDNISolone SOD SUCCI 125 MG/2 ML VIAL IV SCH ×3 (03:54→14:30)
[2021-03-07 08:41] LABS: Glucose,Whole Blood 319 mg/dL (75-99)
[2021-03-07] MEDS: INSULIN ASPART (NovoLOG) 100 UNIT/ML VIAL SQ SCH ×4 (08:56→20:24)
[2021-03-07] MEDS: carvediloL 12.5 MG TAB PO SCH ×2 (08:57→17:47)
[2021-03-07] MEDS: MULTIVITAMINS, THERA 1 EACH TAB PO SCH (08:57)
[2021-03-07] MEDS: FERROUS SULFATE 325 MG TAB PO SCH (08:57)
[2021-03-07] MEDS: APIXABAN 5 MG TAB PO SCH ×2 (08:57→20:20)
[2021-03-07] MEDS: CLOPIDOGREL 75 MG TAB PO SCH (08:57)
[2021-03-07] MEDS: LOSARTAN 50 MG TAB PO SCH (08:58)
[2021-03-07] MEDS: POTASSIUM CHLORIDE ER 20 MEQ TAB.ER PO SCH (08:58)
[2021-03-07] MEDS: EZETIMIBE 10 MG TAB PO SCH (08:58)
[2021-03-07] MEDS: SPIRONOLACTONE 25 MG TAB PO SCH (08:58)
[2021-03-07] MEDS: metOLazone 5 MG TAB PO SCH (08:58)
[2021-03-07] MEDS: PANTOPRAZOLE 40 MG TABLET PO SCH ×2 (08:58→20:20)
[2021-03-07] MEDS ORDERED: amLODIPine 10 MG TAB PO SCH (09:00)
[2021-03-07] MEDS ORDERED: ASPIRIN 325 MG TAB PO SCH (09:00)
[2021-03-07] MEDS: SERTRALINE 50 MG TAB PO SCH (09:07)
[2021-03-07 11:32] LABS: Glucose,Whole Blood 377 mg/dL (75-99)
[2021-03-07] MEDS ORDERED: ALBUTEROL NEBULIZED 2.5 MG/3 ML INHALATION PRN (11:52)
[2021-03-07] MEDS: HYDROcodone/APAP 5-325MG 1 EACH TAB PO PRN ×2 (12:24→20:20)
[2021-03-07 12:54] LABS: Chol/HDL Ratio 3.72 Ratio; VLDL Calculation 16.12 mg/dL (5.00-40.00)
--- NOTE | 2021-03-07 13:39 | HP ---
HISTORY AND PHYSICAL CHIEF COMPLAINT: Shortness of breath, chest pain. HISTORY OF PRESENT ILLNESS: This is another recent admission for this 40-year-old white female who has recurrent cardiac problems with admissions related to atherosclerotic cardiomyopathy, congestive heart failure and uncontrolled diabetes. She called on the day of admission that she was having more and more difficulty breathing and she had some episodes of chest pain. She was referred to the emergency room, where she was found to be in congestive heart failure and her troponin was up. She denies diaphoresis, syncope, orthopnea, nausea, diaphoresis, etc. REVIEW OF SYSTEMS: She has otherwise been doing well. She has had no recent episodes, abdominal pain, nausea, vomiting, urinary complaints, etc. Past medical history, family history, personal and social histories are all unchanged from her recent admitting and discharge summaries. PHYSICAL EXAMINATION: She does look pale and edematous. She is not diaphoretic. Normally her blood pressure is quite high, but in the emergency room it was 135/86 with a pulse of 98 and respirations of 18. She is afebrile. Her EKG demonstrated anteroseptal infarction without any acute changes. Blood sugars were elevated. Head, ears, eyes, nose, mouth and throat were normal. Neck veins could not be assessed. Chest demonstrated somewhat decreased breath sounds due to obesity. Cardiac exam demonstrated sinus tachycardia and the abdomen was protuberant, soft and nontender. Extremities were normal. Neurologically she is intact. She is admitted to the hospital with diagnoses: 1. Acute congestive heart failure. 2. Chronic congestive heart failure with preserved ejection fraction. 3. Cardiomyopathy. 4. History of coronary artery disease. 5. Elevated troponin. 6. Poorly controlled hypertension. 7. Insulin-dependent diabetes mellitus. PLAN: 1. Bedrest. 2. IV fluids. 3. Nasal O2. 4. Serial EKGs and enzymes. 5. Cardiology consult. 6. Diuresis. MMODL / IJN: [id number] /
--- NOTE | 2021-03-07 13:45 | PN ---
PROGRESS NOTE DATE OF SERVICE: 03/07/2021 CHIEF COMPLAINT: Chest pain, elevated troponin and congestive heart failure. HISTORY OF PRESENT ILLNESS: This lady is having some short mild twinges of chest pain, but no diaphoresis. Blood pressure is under good control. Troponins have been consistently positive. PHYSICAL EXAMINATION: Breath sounds are somewhat diminished at the bases. Cardiac exam is normal and vital signs are normal. Abdomen is soft, nontender. IMPRESSION: 1. Acute congestive heart failure. 2. Chronic congestive heart failure. 3. Coronary artery disease. 4. Cardiomyopathy. 5. Elevated troponin. 6. Insulin-dependent diabetes. PLAN: 1. Start Lasix IV q.12 hours to help manage her heart failure. 2. Wait for Cardiology's recommendations. MMODL / IJN: [id number] /
[2021-03-07] MEDS: FUROSEMIDE 10 MG/ML 10 ML VIAL IV SCH ×2 (14:30→20:23)
[2021-03-07] MEDS ORDERED: Magnesium Replacement Protocol 1 EACH MISC MISCELLANE PRN (16:37)
[2021-03-07] MEDS ORDERED: MAGNESIUM SULFATE-D5W PMX 1 GM in DEXTROSE/WATER 1 100ML.BAG IVPB SCH (16:45)
[2021-03-07 17:07] LABS: Glucose,Whole Blood 401 mg/dL (75-99)
--- NOTE | 2021-03-07 18:54 | CONS ---
CONSULTATION Mrs. Franklin is a 40-year-old female with a known history of coronary artery disease who presented to the hospital with symptoms of progressive dyspnea. Patient has a known history of prior percutaneous revascularization, history of ischemic cardiomyopathy, apical thrombus. She presents with symptoms of progressive dyspnea going on for the last few weeks with evidence of peripheral edema. She has gained weight recently, has had what she thinks is an upper respiratory infection recently. She has been under increased stress with the of her father recently. She has some chest discomfort, but predominantly with deep breathing. She denies any PND. She has some palpitations but no syncope. Her cardiac history is remarkable for the fact that she underwent cardiac catheterization and angioplasty in August of 2018 in the setting of an acute myocardial infarction. At that time she underwent stenting of the LAD. She was readmitted to the hospital in November of 2018 and underwent stenting of the first obtuse marginal branch. She did well, and presented in April 2019 and at that time had obstructive disease in the mid LAD and underwent stenting of that vessel using a 3.0 x 15 mm Xience. Her last coronary angiography was performed in September of this year, when she presented with symptoms of dyspnea with mild troponin elevation, and at that time her cardiac catheterization was found to have significant disease in the fourth obtuse marginal branch there was noted in the past without progression, and she had patent stent to the LAD and left circumflex. Her medical regimen was optimized. Her last echocardiogram was performed in September, and at that time her ejection fraction was reported at 40% to 45% with apical hypokinesis. Patient has taken extra diuretics as well as Zaroxolyn to try to improve her symptoms. At the time my evaluation she is feeling better. Her coronary risk factors are remarkable for history of diabetes, hypertension and hyperlipidemia. Her medications include Eliquis 5 mg twice a day, Lipitor 80 mg daily, Norvasc 10 mg daily, Plavix 75 mg daily, Zetia 10 mg daily, Coreg 25 mg twice a day, Lasix 40 mg twice a day, hydralazine 100 mg 3 times a day, Singulair, losartan 100 mg daily, Zoloft, spironolactone 25 mg daily, metolazone on a p.r.n. basis, Desyrel, Ozempic, Protonix. REVIEW OF SYSTEMS: RESPIRATORY SYSTEM: She had dyspnea on exertion. She had recent cough with upper respiratory infection. GI SYSTEM: No recent GI bleeding. No peptic ulcer disease. SYSTEM: No dysuria or hematuria. NERVOUS SYSTEM: No stroke or seizure. PHYSICAL EXAMINATION: This is a 40-year-old female, alert, oriented, in no apparent distress. Blood pressure 124/70 with a heart rate in the 80s. HEAD: Normocephalic. EYES: Sclerae anicteric. NECK: Good carotid upstroke. No bruit. LUNGS: A few crackles at the bases. HEART: Regular rate and rhythm. S1, S2. No S3. Systolic ejection murmur heard at the base. No diastolic murmur. No rub. ABDOMEN: Soft, obese, nontender. EXTREMITIES: Plus 2 edema. LAB DATA: Lab data revealed a hemoglobin of 13, white blood cells of 6.5, BUN creatinine of 34 and 1.39, which is worse than it was in January. Her troponin 0.11, 0.079 and 0.064. NT proBNP is 1790, which is similar to what she had in the past. Her cholesterol is 126 and LDL of 76. She has a positive PCR RSV. Her EKG shows a sinus mechanism, right axis deviation, poor R-wave progression, evidence of anterior wall myocardial infarction. Her chest x-ray shows no evidence of heart failure. IMPRESSION: 1. Progressive dyspnea with RSV infection, with an element of congestive heart failure with impaired systolic function. 2. History of coronary artery disease. 3. Mild troponin elevation with no clear evidence to suggest acute coronary syndrome. 4. Worsening renal function. 5. Hypertension. 6. Diabetes. RECOMMENDATIONS AND DISCUSSION: Her symptoms could have been exacerbated by the upper respiratory infection and probable salt intake. From the cardiac standpoint, the patient will be initiated on intravenous diuretic for 24 hours. Will follow her renal function. I will stop her aspirin. Continue Plavix and the anticoagulation because of the apical thrombus, and that needs to be re-evaluated down the road for the duration of the treatment. Depending on her progress, further recommendations will be made. Thank you for this consult. Will follow with you. CASSIL / IJN: [id number] /
[2021-03-07 20:02] LABS: Glucose,Whole Blood 452 mg/dL (75-99)
[2021-03-07] MEDS: SYMBICORT 160-4.5 MCG INHALER INHALATION SCH (20:06)
[2021-03-07] MEDS ORDERED: INSULIN ASPART (NovoLOG) 100 UNIT/ML VIAL SQ ONE (20:12)
[2021-03-07] MEDS: ATORVASTATIN 80 MG TAB PO SCH (20:20)
[2021-03-07] MEDS: MONTELUKAST 10 MG TAB PO SCH (20:20)
[2021-03-07] MEDS: traZODone HCL 50 MG TAB PO SCH (20:20)
[2021-03-07] MEDS ORDERED: INSULIN DETEMIR (LEVEMIR) 100 UNIT/ML SYR SQ SCH (21:00)
[2021-03-08 04:43] VITALS: RESP 18
[2021-03-08] MEDS: INSULIN ASPART (NovoLOG) 100 UNIT/ML VIAL SQ SCH ×2 (06:08→14:41)
[2021-03-08] MEDS: carvediloL 12.5 MG TAB PO SCH (06:08)
[2021-03-08 06:12] LABS: Glucose,Whole Blood 334 mg/dL (75-99)
[2021-03-08] MEDS: SYMBICORT 160-4.5 MCG INHALER INHALATION SCH (07:45)
[2021-03-08 07:57] LABS: Calcium 9.2 mg/dL (8.4-10.2); Magnesium 1.7 mg/dL (1.6-2.3); Potassium 4.1 mmol/L (3.5-5.1)
[2021-03-08 07:59] VITALS: TEMP 98
[2021-03-08] MEDS: APIXABAN 5 MG TAB PO SCH (08:10)
[2021-03-08] MEDS: CLOPIDOGREL 75 MG TAB PO SCH (08:10)
[2021-03-08] MEDS: SPIRONOLACTONE 25 MG TAB PO SCH (08:10)
[2021-03-08] MEDS: metOLazone 5 MG TAB PO SCH (08:10)
[2021-03-08] MEDS: FERROUS SULFATE 325 MG TAB PO SCH (08:10)
[2021-03-08] MEDS: hydrALAZINE HCL 50 MG TAB PO SCH (08:10)
[2021-03-08] MEDS: LOSARTAN 50 MG TAB PO SCH (08:10)
[2021-03-08] MEDS: PANTOPRAZOLE 40 MG TABLET PO SCH (08:10)
[2021-03-08] MEDS: EZETIMIBE 10 MG TAB PO SCH (08:10)
[2021-03-08] MEDS: POTASSIUM CHLORIDE ER 20 MEQ TAB.ER PO SCH (08:10)
[2021-03-08] MEDS: FUROSEMIDE 10 MG/ML 10 ML VIAL IV SCH (08:11)
[2021-03-08] MEDS: SERTRALINE 50 MG TAB PO SCH (08:11)
[2021-03-08] MEDS: MULTIVITAMINS, THERA 1 EACH TAB PO SCH (08:11)
[2021-03-08] MEDS ORDERED: amLODIPine 5 MG TAB PO SCH (09:00)
--- NOTE | 2021-03-08 09:43 | PN ---
PROGRESS NOTE 40-year-old lady with history of coronary artery disease, status post prior revascularization, ischemic cardiomyopathy with apical thrombus, who is admitted to the hospital with acute exacerbation of chronic systolic heart failure with symptoms with new onset respiratory tract infection. She is negative for Covid, was found to be in congestive heart failure and had been treated with intravenous diuretics with excellent improvement in her symptoms. This morning, she continues to have mild cough with some productive sputum but overall, she is feeling much better. PHYSICAL EXAMINATION: Heart rate is 77 beats per minute, blood pressure is 103/69, respiratory 18 rate, O2 saturation is 95% on room air. There is no jugular venous distention. Carotid upstroke is diminished. There is no bruit. Chest exam reveals good air entry bilaterally. I do not hear any crackles or rhonchi. Heart exam reveals first and second heart sounds. No gallop. No murmur. Abdomen: Soft. Exam of extremities did not reveal any edema. Peripheral pulses are felt. LABS: Show that her PCR for RSV positive. Hemoglobin is 13, platelet count is normal. Potassium is 4.1, BUN is 52, creatinine is 1.9. ASSESSMENT: 1. Acute exacerbation of chronic systolic heart failure. 2. Coronary artery disease, status post multivessel angioplasty. 3. Ischemic cardiomyopathy. PLAN: I will switch her Lasix to p.o. From cardiac standpoint, she appears stable and can be discharged home with outpatient followup with Dr. Davila. URBANO / CHERYL: [id number] /
[2021-03-08 11:37] LABS: Glucose,Whole Blood 270 mg/dL (75-99)
[2021-03-08 13:05] VITALS: BP 103/54; PULSE 60
--- NOTE | 2021-03-08 19:13 | DS ---
DISCHARGE SUMMARY CHIEF COMPLAINT: Chest pain and shortness of breath. HISTORY OF PRESENT ILLNESS AND PHYSICAL EXAMINATION: Details of this lady's history and physical can be found in the initial workup. LABORATORY STUDIES: While she was in the hospital she had laboratory studies, details of which can be found in the laboratory section of her chart. COURSE IN THE HOSPITAL: After admission she was placed on bedrest and started on intravenous fluids and seen by Cardiology. Troponin did elevate, but it was felt that this lady could not benefit from further studies and that this likely was due to NSTEMI once again. She was fluid- overloaded, diuresed and did well. It was felt she could be discharged and she will be followed up in the office in several days. FINAL DIAGNOSES: 1. Chest pain. 2. Acute coronary syndrome. 3. Acute congestive heart failure. 4. Chronic congestive heart failure. 5. Atherosclerotic cardiomyopathy. 6. Coronary artery disease. 7. Insulin-dependent diabetes mellitus. 8. Poorly controlled hypertension. OPERATIONS: None. CONSULTATION: Cardiology. She is improved. MMODL / IJN: [id number] /
== END 2021-03-08 15:05 | disposition home or self-care (01) | DRG 291 ==
LOC: EC 14:25 → 3SCARD 20:18
PROVIDERS: ADMIT Family Medicine; ATTEND Family Medicine
DX: I11.0 Hypertensive heart disease with heart failure (principal); I50.23 Acute on chronic systolic (congestive) heart failure; J21.0 Acute bronchiolitis due to respiratory syncytial virus; I24.9 Acute ischemic heart disease, unspecified; R79.89 Other specified abnormal findings of blood chemistry; I25.10 Atherosclerotic heart disease of native coronary artery without angina pectoris; E11.65 Type 2 diabetes mellitus with hyperglycemia; F20.9 Schizophrenia, unspecified; F31.9 Bipolar disorder, unspecified; Z79.4 Long term (current) use of insulin; Z20.822 Contact with and (suspected) exposure to COVID-19; E83.42 Hypomagnesemia; I25.5 Ischemic cardiomyopathy; R00.0 Tachycardia, unspecified; E66.9 Obesity, unspecified; Z68.34 Body mass index [BMI] 34.0-34.9, adult; K21.9 Gastro-esophageal reflux disease without esophagitis; E78.5 Hyperlipidemia, unspecified; J45.909 Unspecified asthma, uncomplicated; F41.9 Anxiety disorder, unspecified; I25.2 Old myocardial infarction; I48.91 Unspecified atrial fibrillation; Z79.01 Long term (current) use of anticoagulants; Z79.02 Long term (current) use of antithrombotics/antiplatelets; Z79.51 Long term (current) use of inhaled steroids; Z79.82 Long term (current) use of aspirin; Z79.899 Other long term (current) drug therapy; Z82.49 Family history of ischemic heart disease and other diseases of the circulatory system; Z86.711 Personal history of pulmonary embolism; Z87.11 Personal history of peptic ulcer disease; Z87.442 Personal history of urinary calculi; Z96.651 Presence of right artificial knee joint; Z95.5 Presence of coronary angioplasty implant and graft; Z98.891 History of uterine scar from previous surgery; Z98.51 Tubal ligation status; Z88.5 Allergy status to narcotic agent; Z88.0 Allergy status to penicillin; Z88.1 Allergy status to other antibiotic agents; Z91.041 Radiographic dye allergy status; Z85.6 Personal history of leukemia
CPT/HCPCS: 36415; 71046; 80048; 80053; 80061; 83735; 83880; 84484; 85025; 85610; 85730; 87636; 93005; 94640; 96374; 99285

== ENCOUNTER 2021-05-04 16:32 | Emergency (ER) | payer MEDICARE, OTHER ==
[2021-05-04 17:36] VITALS: BP 153/105; PULSE 91; RESP 16; TEMP 98.4
[2021-05-04] MEDS ORDERED: PANTOPRAZOLE 40 MG/10 ML VIAL IVP STA (19:08)
[2021-05-04] MEDS ORDERED: SODIUM CHLORIDE 0.9% 1,000 ML IV STA (19:08)
[2021-05-04] MEDS ORDERED: ONDANSETRON 4 MG/2 ML VIAL IVP STA (19:08)
[2021-05-04] MEDS ORDERED: DICYCLOMINE 10 MG/ML 2 ML AMP IM STA (19:08)
--- NOTE | 2021-05-04 19:15 | ED ---
Abdominal Pain HPI - General Chief Complaint: Abdominal Pain Stated Complaint: Constipation Time Seen by Provider: 05/04/21 19:02 Source: patient, RN notes reviewed Mode of arrival: wheelchair Limitations: no limitations - History of Present Illness Initial Comments: This is a pleasant 40-year-old diabetic female presents with 10 days of const ipation. Patient states she has not had a bowel movement in 10 days. She tried [id number] remedies without success. Patient complaining of sharp and constant abdominal pain. Also complaining of a week pain and abdominal distention. Sent in by her primary care physician. She denies any hematemesis or coffee-ground emesis. However she has had vomiting. History of peptic ulcer disease. Patient has had previous C-sections. No headache, no fever or chills, no changes in vision or hearing, no sore throat or difficulty with speech, no neck pain, no chest pain or shortness of breath, , no changes in urination or bowel movements, no numbness or tingling, no extremity pain, no skin rashes or lesions. MD Complaint: abdominal pain - Related Data Home Medications Medication Instructions Recorded Confirmed Ferrous Sulfate [Iron] 325 mg PO DAILY 07/11/18 05/04/21 carvediloL 25 mg PO BID 07/11/18 05/04/21 Semaglutide [Ozempic] 0.5 mg SQ MO 11/19/19 05/04/21 ALPRAZolam [Xanax] 0.5 mg PO BID PRN 06/16/20 05/04/21 Albuterol Sulfate [Ventolin HFA] 1 - 2 puff INHALATION RT-QID PRN 06/16/20 05/04/21 Albuterol Nebulized [Ventolin 2.5 mg INHALATION RT-QID PRN 08/07/20 05/04/21 Nebulized] Budesonide/Formoterol Fumarate 2 puff INHALATION RT-BID 08/07/20 05/04/21 [Symbicort 160-4.5 Mcg Inhaler] Fluticasone Nasal [place] [Flonase 1 spray EA NOSTRIL DAILY PRN 08/07/20 05/04/21 Nasal [place]] Insulin Glargine,Hum.rec.anlog 40 unit SQ HS 08/07/20 05/04/21 [Lantus Solostar Pen] Montelukast [Singulair] 10 mg PO HS 08/07/20 05/04/21 Multivitamins, Thera [Multivitamin 1 tab PO DAILY 08/07/20 05/04/21 (formulary)] Nitroglycerin [Nitro-Dur 0.4MG/Hr 1 patch TRANSDERM Q48H PRN 08/07/20 05/04/21 Patch] traZODone HCL [Desyrel] 50 mg PO HS PRN 10/05/20 05/04/21 Losartan Potassium [Cozaar] 100 mg PO DAILY 02/01/21 05/04/21 rOPINIRole HCL [Requip] 0.25 mg PO HS 02/01/21 05/04/21 Aspirin EC [Ecotrin Low Dose] 81 mg PO DAILY 03/06/21 05/04/21 Spironolactone [Aldactone] 25 mg PO DAILY 03/06/21 05/04/21 metOLazone [Zaroxolyn] 5 mg PO DAILY 03/06/21 05/04/21 Nitroglycerin Sl Tabs [Nitrostat] 0.4 mg SUBLINGUAL Q5M PRN 05/04/21 05/04/21 Previous Rx's Medication Instructions Recorded Atorvastatin [Lipitor] 80 mg PO HS #30 tab 12/06/18 Clopidogrel [Plavix] 75 mg PO DAILY #30 tab 12/06/18 Apixaban [Eliquis] 5 mg PO BID #180 tab 11/21/19 hydrALAZINE HCL [Apresoline] 100 mg PO TID #90 tab 08/09/20 HYDROcodone/APAP 5-325MG [[place] 1 tab PO Q6HR PRN 3 Days #12 tab 12/28/20 5-325] Ezetimibe [Zetia] 10 mg PO DAILY #30 tab 02/02/21 Pantoprazole [Protonix] 40 mg PO BID #60 tab 02/02/21 Potassium Chloride ER [K-Dur 20] 20 meq PO DAILY #30 tablet 02/02/21 Sertraline [Zoloft] 50 mg PO DAILY #30 tab 02/02/21 amLODIPine [Norvasc] 10 mg PO DAILY #30 tab 02/02/21 Furosemide [Lasix] 80 mg PO BID PRN #60 tab 03/08/21 Magnesium Citrate [Citrate of 0 ml PO Q6H PRN #296 ml 05/04/21 Magnesia] Allergies Allergy/AdvReac Type Severity Reaction Status Date / Time cephalexin [From Keflex] Allergy Rash/Hives Verified 05/04/21 21:14 codeine Allergy Rash/Hives Verified 05/04/21 21:14 Iodine and Iodide Containing Allergy Rash/Hives Verified 05/04/21 21:14 Produc Penicillins Allergy Rash/Hives Verified 05/04/21 21:14 tramadol Allergy Rash/Hives Verified 05/04/21 21:14 Review of Systems ROS Statement: Those systems with pertinent positive or pertinent negative responses have been documented in the HPI. ROS Other: All systems not noted in ROS Statement are negative. Past Medical History Past Medical History: Atrial Fibrillation, Asthma, Coronary Artery Disease (CAD), Diabetes Mellitus, GERD/Reflux, Hyperlipidemia, Hypertension, Myocardial Infarction ([place]), Pulmonary Embolus ([place]) Additional Past Medical History / Comment(s): peptic ulcer, gall stones, kidney stone, childhood leukemia, [place] X7 Last Myocardial Infarction Date:: 05/01/2019 History of Any Multi-Drug Resistant Organisms: None Reported Past Surgical History: Section, Heart Catheterization With Stent, Joint Replacement, Tonsillectomy, Tubal Ligation Additional Past Surgical History / Comment(s): 4 stents, partial right knee replacement Past Anesthesia/Blood Transfusion Reactions: No Reported Reaction Date of Last Stent Placement:: 08/02/18 Past Psychological History: Anxiety, Bipolar, Depression, Schizophrenia Smoking Status: Former smoker Past Alcohol Use History: None Reported Past Drug Use History: None Reported - Past Family History Father Family Medical History: Hyperlipidemia, Hypertension Additional Family Medical History / Comment(s): pins in knee, heart stents x 4 General Exam - General Exam Comments Initial Comments: Patient appears to be in mild distress but not ill or toxic. Limitations: no limitations General appearance: alert, in distress Head exam: Present: atraumatic, normocephalic, normal inspection Eye exam: Present: normal appearance, PERRL, EOMI. Absent: scleral icterus, conjunctival injection, periorbital swelling ENT exam: Present: normal exam, mucous membranes moist Neck exam: Present: normal inspection. Absent: tenderness, meningismus, lymphadenopathy Respiratory exam: Present: normal lung sounds bilaterally. Absent: respiratory distress, wheezes, rales, rhonchi, stridor Cardiovascular Exam: Present: regular rate, normal rhythm, normal heart sounds. Absent: systolic murmur, diastolic murmur, rubs, gallop, clicks GI/Abdominal exam: Present: distended, tenderness, guarding, hyperactive bowel sounds, other (Generalized tenderness to palpation with distention). Absent: rebound, rigid Extremities exam: Present: normal inspection, full ROM, normal capillary refill. Absent: tenderness, pedal edema, joint swelling, calf tenderness Back exam: Present: normal inspection Neurological exam: Present: alert, oriented X3, CN II-XII intact Psychiatric exam: Present: normal affect, normal mood Skin exam: Present: warm, dry, intact, normal color. Absent: rash Course Vital Signs 05/04/21 17:33 Temperature 98.4 F Pulse Rate 91 Respiratory 16 Rate Blood Pressure 153/105 O2 Sat by Pulse 98 Oximetry - Reevaluation(s) Reevaluation #1: 05/04/21 21:11 Medical record is reviewed Symptoms are improved here in the emergency department Patient is informed of results and questions answered Patient in no distress Medical Decision Making - Medical Decision Making Constipation versus small bowel obstruction. Does not appear to be consistent with cardiopulmonary etiology. Other intra-abdominal etiology such as diverticulitis, intra-abdominal abscess, ileus are also within the differential. Discussed the other spurious findings on CT as noted, mild pericardial effusion, mild ascites, mild spinal megaly. Patient aware and no she needs to call her regular physician. - Lab Data Result diagrams: 05/04/21 19:03 05/04/21 19:03 Lab Results 05/04/21 05/04/21 05/04/21 Range/Units 19:03 19:03 19:03 WBC 7.3 (3.8-10.6) k/uL RBC 5.27 (3.80-5.40) m/uL Hgb 13.9 (11.4-16.0) gm/dL Hct 45.0 (34.0-46.0) % MCV 85.5 (80.0-100.0) fL MCH 26.4 (25.0-35.0) pg MCHC 30.9 L (31.0-37.0) g/dL RDW 17.5 H (11.5-15.5) % Plt Count 184 (150-450) k/uL MPV 8.3 Neutrophils % 76 % Lymphocytes % 16 % Monocytes % 4 % Eosinophils % 2 % Basophils % 0 % Neutrophils # 5.6 (1.3-7.7) k/uL Lymphocytes # 1.1 (1.0-4.8) k/uL Monocytes # 0.3 (0-1.0) k/uL Eosinophils # 0.1 (0-0.7) k/uL Basophils # 0.0 (0-0.2) k/uL Hypochromasia Moderate Anisocytosis Slight Sodium 138 (137-145) mmol/L Potassium 4.3 (3.5-5.1) mmol/L Chloride 106 (98-107) mmol/L Carbon Dioxide 26 (22-30) mmol/L Anion Gap 6 mmol/L BUN 16 (7-17) mg/dL Creatinine 0.87 (0.52-1.04) mg/dL Est GFR (CKD-EPI)AfAm >90 (>60 ml/min/1.73 sqM) Est GFR (CKD-EPI)NonAf 83 (>60 ml/min/1.73 sqM) Glucose 127 H (74-99) mg/dL Calcium 9.1 (8.4-10.2) mg/dL Total Bilirubin 1.2 (0.2-1.3) mg/dL AST 27 (14-36) U/L ALT 19 (4-34) U/L Alkaline Phosphatase 45 (38-126) U/L Total Protein 6.2 L (6.3-8.2) g/dL Albumin 3.6 (3.5-5.0) g/dL Lipase 102 (23-300) U/L Urine Color Yellow Urine Appearance Clear (Clear) Urine pH 6.0 (5.0-8.0) Ur Specific [place] 1.020 (1.001-1.035) Urine Protein 2+ H (Negative) Urine Glucose (UA) Negative (Negative) Urine Ketones Negative (Negative) Urine Blood Negative (Negative) Urine Nitrite Negative (Negative) Urine Bilirubin Negative (Negative) Urine Urobilinogen 3.0 (<2.0) mg/dL Ur Leukocyte Esterase Negative (Negative) Urine RBC 1 (0-5) /hpf Urine WBC 2 (0-5) /hpf Ur Squamous Epith Cells 2 (0-4) /hpf Urine Bacteria Rare H (None) /hpf Urine Mucus Rare H (None) /hpf - Radiology Data Radiology results: report reviewed, image reviewed Disposition Clinical Impression: Constipated, Abdominal cramping Disposition: HOME SELF-CARE Condition: Stable Instructions (If sedation given, give patient instructions): Constipation (ED) Prescriptions: Magnesium Citrate [Citrate of Magnesia] 0 ml PO Q6H PRN #296 ml PRN Reason: Constipation Is patient prescribed a controlled substance at d/c from ED?: No Referrals: Odell Sena MD [Primary Care Provider] - 1-2 days Time of Disposition: 21:21
[2021-05-04 19:44] LABS: Anisocytosis Slight; Basophils % (A) 0 %; Eosinophils # (A) 0.1 k/uL (0-0.7); Eosinophils % (A) 2 %; HGB 13.9 gm/dL (11.4-16.0); Hypochromasia Moderate; Lymphocytes # (A) 1.1 k/uL (1.0-4.8); Lymphocytes % (A) 16 %; MCH 26.4 pg (25.0-35.0); MCHC 30.9 g/dL (31.0-37.0); MCV 85.5 fL (80.0-100.0); Mean Platelet Volume 8.3; Monocytes # (A) 0.3 k/uL (0-1.0); Monocytes % (A) 4 %; Neutrophils # (A) 5.6 k/uL (1.3-7.7); Neutrophils % (A) 76 %; Platelet Count 184 k/uL (150-450); RBC 5.27 m/uL (3.80-5.40); RDW 17.5 % (11.5-15.5); WBC 7.3 k/uL (3.8-10.6)
[2021-05-04 19:46] LABS: Appearance,Urine Clear (Clear); Bacteria,Urine Rare /hpf; Bilirubin,Urine Negative (Negative); Blood,Urine Negative (Negative); Color,Urine Yellow; Glucose,Urine (UA) Negative (Negative); Ketones,Urine Negative (Negative); Leukocyte Esterase,Urine Negative (Negative); Mucus,Urine Rare /hpf; Nitrite,Urine Negative (Negative); Protein,Urine 2+ (Negative); RBC,Urine 1 /hpf (0-5); Squamous Epithelial Cell,Urine 2 /hpf (0-4); WBC,Urine 2 /hpf (0-5)
[2021-05-04 19:52] LABS: ALT 19 U/L (4-34); AST 27 U/L (14-36); African American GFR (CKD) >90 (>60 ml/min/1.73 sqM); Albumin 3.6 g/dL (3.5-5.0); Alkaline Phosphatase 45 U/L (38-126); Anion Gap 6 mmol/L; Blood Urea Nitrogen 16 mg/dL (7-17); Calcium 9.1 mg/dL (8.4-10.2); Carbon Dioxide 26 mmol/L (22-30); Chloride 106 mmol/L (98-107); Glucose 127 mg/dL (74-99); Lipase 102 U/L (23-300); Non-African American GFR(CKD) 83 (>60 ml/min/1.73 sqM); Potassium 4.3 mmol/L (3.5-5.1); Sodium 138 mmol/L (137-145); Total Bilirubin 1.2 mg/dL (0.2-1.3); Total Protein 6.2 g/dL (6.3-8.2)
--- NOTE | 2021-05-04 20:06 | XR ---
EXAMINATION TYPE: XR chest 1V portable DATE OF EXAM: 05/04/2021 COMPARISON: 03/06/2021 HISTORY: Abdominal pain TECHNIQUE: Single view FINDINGS: Heart is enlarged. There is no heart failure. Costophrenic angles are clear. There are no h ilar masses. Bony thorax is intact. IMPRESSION: Moderate cardiomegaly. No change compared to old exam.
--- NOTE | 2021-05-04 20:07 | XR ---
EXAMINATION TYPE: XR KUB DATE OF EXAM: 05/04/2021 COMPARISON: NONE HISTORY: Abdominal pain TECHNIQUE: 2 views upright FINDINGS: There is no sign of intestinal obstruction or pneumoperitoneum. Fecal pattern is normal. Th ere is no evidence of a mass. There are no pathologic calcifications over the kidneys. Lung bases are clear. IMPRESSION: Nonacute abdomen.
--- NOTE | 2021-05-04 20:11 | CT ---
EXAMINATION TYPE: CT abdomen pelvis wo con DATE OF EXAM: 05/04/2021 COMPARISON: None HISTORY: constipation x11 days CT DLP: 1244.2 mGycm Automated exposure control for dose reduction was used. Images obtained from the diaphragm to the floor the pelvis with no contrast. Heart is moderately enlarged. There is small pericardial effusion. There is no pleural effusion. Liver and spleen appear intact. Spleen is enlarged and measures 16.5 cm. Stomach is intact. There is no pancreatic mass. Gallbladder is intact. There is some mild free fluid in the abdomen and pelvis. T here is extensive subcutaneous edema around the abdomen. There is no adrenal mass. Kidneys have normal size. There is no hydronephrosis. There is 3 mm calculu s anterior right kidney. There is no retroperitoneal adenopathy. Uterus is anteverted. There is no ev idence of a pelvic mass. Appendix is partly seen and appears normal. The lumbar vertebrae have normal alignment. Posterior elements are intact. There is no compression fr acture. Hip joints are intact. There is no hip dysplasia. IMPRESSION: Moderate cardiomegaly. Pericardial effusion. Subcutaneous edema and mild abdominal ascites. Moderate splenomegaly.
[2021-05-04] MEDS ORDERED: MAGNESIUM CITRATE 296 ML BOTTLE PO ONE (21:19)
== END 2021-05-04 21:49 | disposition home or self-care (01) ==
LOC: EC 16:32
DX: K59.00 Constipation, unspecified (principal); I48.91 Unspecified atrial fibrillation; J45.909 Unspecified asthma, uncomplicated; I25.10 Atherosclerotic heart disease of native coronary artery without angina pectoris; E11.9 Type 2 diabetes mellitus without complications; K21.9 Gastro-esophageal reflux disease without esophagitis; E78.5 Hyperlipidemia, unspecified; I10 Essential (primary) hypertension; I25.2 Old myocardial infarction; F41.9 Anxiety disorder, unspecified; F31.9 Bipolar disorder, unspecified; F25.9 Schizoaffective disorder, unspecified; Z79.4 Long term (current) use of insulin; Z79.82 Long term (current) use of aspirin; Z79.02 Long term (current) use of antithrombotics/antiplatelets; Z79.01 Long term (current) use of anticoagulants; Z88.0 Allergy status to penicillin; Z88.1 Allergy status to other antibiotic agents; Z88.5 Allergy status to narcotic agent; Z86.711 Personal history of pulmonary embolism; Z87.442 Personal history of urinary calculi; Z98.51 Tubal ligation status; Z96.651 Presence of right artificial knee joint; Z87.891 Personal history of nicotine dependence
CPT/HCPCS: 99284; 96374; 96375; 36415; 80053; 83690; 85025; 81001; 71045; 74018; 74176; J2405; C9113

== ENCOUNTER 2021-05-24 14:46 | Inpatient (IN) | payer MEDICARE, OTHER ==
--- NOTE | 2021-05-24 15:43 | XR ---
EXAMINATION TYPE: XR chest 2V DATE OF EXAM: 05/24/2021 COMPARISON: X-ray dated 05/04/2021 HISTORY: SOB, dizziness and nausea TECHNIQUE: Frontal and lateral views of the chest are obtained. FINDINGS: Increased cardiac transverse diameter, also appreciated previously. This could be related to cardiome sri however associated pericardial effusion cannot be excluded. Slightly congested pulmonary vasculature which may suggest mild pulmonary edema. Grossly unremarkable lungs otherwise. No sizable pleural effusion or definite pneumothorax. No gross aggressive bone lesi on. IMPRESSION: Persistent cardiomegaly with slightly congested pulmonary vasculature, please correlate for mild pulm onary edema. Associated pericardial effusion cannot be excluded.
[2021-05-24] MEDS ORDERED: FUROSEMIDE 10 MG/ML 4 ML VIAL IV STA (18:26)
[2021-05-24] MEDS ORDERED: ONDANSETRON 4 MG/2 ML VIAL IVP STA (18:51)
[2021-05-24 18:53] LABS: Anisocytosis Slight; Basophils % (A) 0 %; Eosinophils # (A) 0.1 k/uL (0-0.7); Eosinophils % (A) 1 %; HCT 45.5 % (34.0-46.0); HGB 14.3 gm/dL (11.4-16.0); Hypochromasia Moderate; Lymphocytes # (A) 0.8 k/uL (1.0-4.8); Lymphocytes % (A) 14 %; MCHC 31.5 g/dL (31.0-37.0); MCV 85.9 fL (80.0-100.0); Mean Platelet Volume 8.4; Monocytes # (A) 0.2 k/uL (0-1.0); Monocytes % (A) 4 %; Neutrophils # (A) 4.1 k/uL (1.3-7.7); Neutrophils % (A) 78 %; Platelet Count 188 k/uL (150-450); RBC 5.29 m/uL (3.80-5.40); RDW 16.9 % (11.5-15.5); WBC 5.3 k/uL (3.8-10.6)
--- NOTE | 2021-05-24 19:00 | ED ---
Extremity Problem HPI - General Chief complaint: Extremity Problem,Nontraumatic Stated complaint: bilat leg swelling Time Seen by Provider: 05/24/21 18:05 Source: patient Mode of arrival: ambulatory Limitations: no limitations - History of Present Illness Initial comments: Patient is 40-year-old female with past medical history of diabetes, hypertension, congestive heart failure, STEMI, presenting with the chief complaint of increased lower extremity swelling. Patient states that within the last week the swelling of her bilateral lower extremities and lower abdomen has been increasing. Her physician instructed her to take 160 mg divided into 2 do ses/day of Lasix for the last 4 days, an increase from her usual 40mg Lasix/day. Patient states that by the end of the day her legs are still swollen as if she had taken no medication. Pt complaining of LE weeping and muscle cramps, and states she has noticed a new red area of the skin on her L schuster. Today she has been experiencing nausea and several episodes of vomiting. She states that her abdomen is in pain due to the increased swelling. She denies chest pain, shortness of breath, fever, chills, diarrhea, constipation, hematemesis, hemoptysis, hematochezia, numbness, tingling, dizziness, and one-sided body, confusion, pain radiating to the left-sided jaw or arm, back pain, hematauria, d ysuria, headache, vision changes. - Related Data Home Medications Medication Instructions Recorded Confirmed Ferrous Sulfate [Iron] 325 mg PO DAILY 07/11/18 05/24/21 carvediloL 25 mg PO BID 07/11/18 05/24/21 Semaglutide [Ozempic] 0.5 mg SQ MO@2100 11/19/19 05/24/21 ALPRAZolam [Xanax] 0.5 mg PO BID PRN 06/16/20 05/24/21 Albuterol Sulfate [Ventolin HFA] 1 - 2 puff INHALATION RT-QID PRN 06/16/20 05/24/21 Albuterol Nebulized [Ventolin 2.5 mg INHALATION RT-QID PRN 08/07/20 05/24/21 Nebulized] Budesonide/Formoterol Fumarate 2 puff INHALATION RT-BID 08/07/20 05/24/21 [Symbicort 160-4.5 Mcg Inhaler] Fluticasone Nasal [place] [Flonase 1 spray EA NOSTRIL DAILY PRN 08/07/20 05/24/21 Nasal Marion] Insulin Glargine,Hum.rec.anlog 40 unit SQ HS 08/07/20 05/24/21 [Lantus Solostar Pen] Montelukast [Singulair] 10 mg PO HS 08/07/20 05/24/21 Multivitamins, Thera [Multivitamin 1 tab PO DAILY 08/07/20 05/24/21 (formulary)] Nitroglycerin [Nitro-Dur 0.4MG/Hr 1 patch TRANSDERM Q48H PRN 08/07/20 05/24/21 Patch] traZODone HCL [Desyrel] 50 mg PO HS PRN 10/05/20 05/24/21 Losartan Potassium [Cozaar] 100 mg PO DAILY 02/01/21 05/24/21 rOPINIRole HCL [Requip] 0.25 mg PO HS 02/01/21 05/24/21 Aspirin EC [Ecotrin Low Dose] 81 mg PO DAILY 03/06/21 05/24/21 Spironolactone [Aldactone] 25 mg PO DAILY 03/06/21 05/24/21 metOLazone [Zaroxolyn] 5 mg PO DAILY 03/06/21 05/24/21 Nitroglycerin Sl Tabs [Nitrostat] 0.4 mg SUBLINGUAL Q5M PRN 05/04/21 05/24/21 Previous Rx's Medication Instructions Recorded Atorvastatin [Lipitor] 80 mg PO HS #30 tab 12/06/18 Clopidogrel [Plavix] 75 mg PO DAILY #30 tab 12/06/18 Apixaban [Eliquis] 5 mg PO BID #180 tab 11/21/19 hydrALAZINE HCL [Apresoline] 100 mg PO TID #90 tab 08/09/20 HYDROcodone/APAP 5-325MG [[place] 1 tab PO Q6HR PRN 3 Days #12 tab 12/28/20 5-325] Ezetimibe [Zetia] 10 mg PO DAILY #30 tab 02/02/21 Pantoprazole [Protonix] 40 mg PO BID #60 tab 02/02/21 Potassium Chloride ER [K-Dur 20] 20 meq PO DAILY #30 tablet 02/02/21 Sertraline [Zoloft] 50 mg PO DAILY #30 tab 02/02/21 amLODIPine [Norvasc] 10 mg PO DAILY #30 tab 02/02/21 Furosemide [Lasix] 80 mg PO BID PRN #60 tab 03/08/21 Allergies Allergy/AdvReac Type Severity Reaction Status Date / Time cephalexin [From Keflex] Allergy Rash/Hives Verified 05/24/21 20:21 codeine Allergy Rash/Hives Verified 05/24/21 20:21 Iodine and Iodide Containing Allergy Rash/Hives Verified 05/24/21 20:21 Produc Penicillins Allergy Rash/Hives Verified 05/24/21 20:21 tramadol Allergy Rash/Hives Verified 05/24/21 20:21 Review of Systems ROS Statement: Those systems with pertinent positive or pertinent negative responses have been documented in the HPI. ROS Other: All systems not noted in ROS Statement are negative. Past Medical History Past Medical History: Atrial Fibrillation, Asthma, Coronary Artery Disease (CAD), Diabetes Mellitus, GERD/Reflux, Hyperlipidemia, Hypertension, Myocardial Infarction (NV), Pulmonary Embolus (PE) Additional Past Medical History / Comment(s): peptic ulcer, gall stones, kidney stone, childhood leukemia, [place] X7 Last Myocardial Infarction Date:: 05/01/2019 History of Any Multi-Drug Resistant Organisms: None Reported Past Surgical History: Section, Heart Catheterization With Stent, Joint Replacement, Tonsillectomy, Tubal Ligation Additional Past Surgical History / Comment(s): 4 stents, partial right knee replacement Past Anesthesia/Blood Transfusion Reactions: No Reported Reaction Date of Last Stent Placement:: 08/02/18 Past Psychological History: Anxiety, Bipolar, Depression, Schizophrenia Smoking Status: Former smoker Past Alcohol Use History: None Reported Past Drug Use History: None Reported - Past Family History Father Family Medical History: Hyperlipidemia, Hypertension Additional Family Medical History / Comment(s): pins in knee, heart stents x 4 General Exam Limitations: no limitations General appearance: alert, in no apparent distress Head exam: Present: atraumatic, normocephalic, normal inspection Eye exam: Present: normal appearance Neck exam: Present: normal inspection Respiratory exam: Present: normal lung sounds bilaterally. Absent: respiratory distress, wheezes, rales, rhonchi, stridor Cardiovascular Exam: Present: regular rate, normal rhythm, normal heart sounds. Absent: systolic murmur, diastolic murmur, rubs, gallop, clicks GI/Abdominal exam: Present: distended, tenderness, guarding, normal bowel sounds. Absent: rebound, rigid Expanded GI/Abdominal exam: Present: ascites Extremities exam: Present: pedal edema Left Lower Leg exam: Present: swelling (3+ edema), erythema (light pink non-open wound noted on the L schuster) Foot/Toe exam: Present: swelling (3+ edema) Neurovascular tendon exam: Absent: sensory deficit Right Lower Leg exam: Present: swelling (3+ pitting edema) Foot/Toe exam: Present: swelling (3+ [itting edema) Neurovascular tendon exam: Absent: sensory deficit Psychiatric exam: Present: normal affect, normal mood Skin exam: Present: warm, dry, intact, other (non-open wound of the L schuster) Course Vital Signs 05/24/21 05/24/21 05/24/21 15:04 18:40 21:34 Temperature 97.0 F L Pulse Rate 91 91 91 Respiratory 20 20 20 Rate Blood Pressure 150/94 159/108 172/119 O2 Sat by Pulse 98 98 98 Oximetry 05/24/21 05/24/21 22:25 23:00 Temperature Pulse Rate 84 Respiratory 16 Rate Blood Pressure 139/89 136/98 O2 Sat by Pulse 97 Oximetry - Reevaluation(s) Reevaluation #1: Pt is resting comfortably. Pt states that she is unable to perform ADLs at home with her current swelling. Nausea is gone, pt responded well to zofran 05/24/21 22:02 Medical Decision Making - Medical Decision Making Patient is a 40-year-old female presenting with a chief complaint of increased bilateral lower extremity swelling. Past medical history of CHF, diabetes, hypertension, STEMI. Patient states that for the last week her lower extremity edema and ascites and worsening. Her physician instructed her to take 180 mg of Lasix divided into 2 doses per day. Patient states that by the end of the day her legs look and feel as if she has not taken any medication. On exam there is bilateral 3+ pitting edema of the lower extremities. There is a new slightly erythematous wound on the R schuster, skin is fully in tact. No friction rub or rales heard on auscultation. Lab work is remarkable for an elevated troponin, this is consistent with her baseline. BNP is 1650. Chest x-ray indicates that there may be mild pulmonary edema, cannot rule out mild pericardial effusion. Doppler ultrasound of the bilateral lower extremities shows no DVT. EKG shows no acute changes when compared to previous study, signed off on by Dr. Vu. Patient states that she cannot function and perform her normal ADLs with this level of swelling. I spoke with Dr. Cordero and informed him of her findings, he agreed to admit the patient for CHF exacerbation. Pt was given zofran 4mg for nausea and Lasix 40mg as she did not take prior to presenting. At 21:34 patient's blood pressure was elevated to 172/119, she was given labetalol 20 mg IVP. Patient conveyed verbal understanding and was agreeable to the plan. This case was discussed with my attending Dr. Vu. - Lab Data Result diagrams: 05/24/21 18:40 05/24/21 18:40 Lab Results 05/24/21 05/24/21 05/24/21 Range/Units 18:40 18:40 18:40 WBC 5.3 (3.8-10.6) k/uL RBC 5.29 (3.80-5.40) m/uL Hgb 14.3 (11.4-16.0) gm/dL Hct 45.5 (34.0-46.0) % MCV 85.9 (80.0-100.0) fL MCH 27.0 (25.0-35.0) pg MCHC 31.5 (31.0-37.0) g/dL RDW 16.9 H (11.5-15.5) % Plt Count 188 (150-450) k/uL MPV 8.4 Neutrophils % 78 % Lymphocytes % 14 % Monocytes % 4 % Eosinophils % 1 % Basophils % 0 % Neutrophils # 4.1 (1.3-7.7) k/uL Lymphocytes # 0.8 L (1.0-4.8) k/uL Monocytes # 0.2 (0-1.0) k/uL Eosinophils # 0.1 (0-0.7) k/uL Basophils # 0.0 (0-0.2) k/uL Hypochromasia Moderate Anisocytosis Slight Sodium 135 L (137-145) mmol/L Potassium 3.8 (3.5-5.1) mmol/L Chloride 101 (98-107) mmol/L Carbon Dioxide 26 (22-30) mmol/L Anion Gap 8 mmol/L BUN 15 (7-17) mg/dL Creatinine 0.99 (0.52-1.04) mg/dL Est GFR (CKD-EPI)AfAm 82 (>60 ml/min/1.73 sqM) Est GFR (CKD-EPI)NonAf 71 (>60 ml/min/1.73 sqM) Glucose 188 H (74-99) mg/dL Plasma Lactic Acid Dalton (0.7-2.0) mmol/L Calcium 8.5 (8.4-10.2) mg/dL Total Bilirubin 1.5 H (0.2-1.3) mg/dL AST 20 (14-36) U/L ALT 16 (4-34) U/L Alkaline Phosphatase 60 (38-126) U/L Troponin I (0.000-0.034) ng/mL NT-Pro-B Natriuret Pep 1650 pg/mL Total Protein 6.6 (6.3-8.2) g/dL Albumin 3.8 (3.5-5.0) g/dL Urine Color Urine Appearance (Clear) Urine pH (5.0-8.0) Ur Specific [place] (1.001-1.035) Urine Protein (Negative) Urine Glucose (UA) (Negative) Urine Ketones (Negative) Urine Blood (Negative) Urine Nitrite (Negative) Urine Bilirubin (Negative) Urine Urobilinogen (<2.0) mg/dL Ur Leukocyte Esterase (Negative) Urine RBC (0-5) /hpf Urine WBC (0-5) /hpf Ur Squamous Epith Cells (0-4) /hpf Urine Bacteria (None) /hpf Urine Mucus (None) /hpf 05/24/21 05/24/21 05/24/21 Range/Units 18:40 18:40 19:31 WBC (3.8-10.6) k/uL RBC (3.80-5.40) m/uL Hgb (11.4-16.0) gm/dL Hct (34.0-46.0) % MCV (80.0-100.0) fL MCH (25.0-35.0) pg MCHC (31.0-37.0) g/dL RDW (11.5-15.5) % Plt Count (150-450) k/uL MPV Neutrophils % % Lymphocytes % % Monocytes % % Eosinophils % % Basophils % % Neutrophils # (1.3-7.7) k/uL Lymphocytes # (1.0-4.8) k/uL Monocytes # (0-1.0) k/uL Eosinophils # (0-0.7) k/uL Basophils # (0-0.2) k/uL Hypochromasia Anisocytosis Sodium (137-145) mmol/L Potassium (3.5-5.1) mmol/L Chloride (98-107) mmol/L Carbon Dioxide (22-30) mmol/L Anion Gap mmol/L BUN (7-17) mg/dL Creatinine (0.52-1.04) mg/dL Est GFR (CKD-EPI)AfAm (>60 ml/min/1.73 sqM) Est GFR (CKD-EPI)NonAf (>60 ml/min/1.73 sqM) Glucose (74-99) mg/dL Plasma Lactic Acid [place] 1.1 (0.7-2.0) mmol/L Calcium (8.4-10.2) mg/dL Total Bilirubin (0.2-1.3) mg/dL AST (14-36) U/L ALT (4-34) U/L Alkaline Phosphatase (38-126) U/L Troponin I 0.046 H* (0.000-0.034) ng/mL NT-Pro-B Natriuret Pep pg/mL Total Protein (6.3-8.2) g/dL Albumin (3.5-5.0) g/dL Urine Color Yellow Urine Appearance Clear (Clear) Urine pH 6.5 (5.0-8.0) Ur Specific [place] 1.012 (1.001-1.035) Urine Protein 1+ H (Negative) Urine Glucose (UA) Negative (Negative) Urine Ketones Negative (Negative) Urine Blood Negative (Negative) Urine Nitrite Negative (Negative) Urine Bilirubin Negative (Negative) Urine Urobilinogen 3.0 (<2.0) mg/dL Ur Leukocyte Esterase Negative (Negative) Urine RBC <1 (0-5) /hpf Urine WBC 1 (0-5) /hpf Ur Squamous Epith Cells 1 (0-4) /hpf Urine Bacteria Rare H (None) /hpf Urine Mucus Rare H (None) /hpf - EKG Data EKG shows normal: sinus rhythm Rate: normal When compared to previous EKG there are: no significant change Interpretation: no acute changes Interpreted by Dr. Vu 05/24/21 22:02 - Radiology Data Radiology results: report reviewed Chest x-ray CHS mild pulmonary edema. Cannot rule out cardial effusion. Doppler ultrasound bilateral lower extremities shows no DVT Disposition Clinical Impression: CHF (congestive heart failure), Uncontrolled hypertension, Bilateral lower extremity edema, Elevated brain natriuretic peptide (BNP) level Disposition: ADMITTED IP TO THIS HOSP Condition: Stable Referrals: Odell Sena MD [Primary Care Provider] - 1-2 days Time of Disposition: 23:32 Decision to Admit Reason: Admit from EC Decision Date: 05/24/21 Decision Time: 23:32
[2021-05-24 19:06] LABS: Albumin 3.8 g/dL (3.5-5.0); Calcium 8.5 mg/dL (8.4-10.2); Potassium 3.8 mmol/L (3.5-5.1); Total Bilirubin 1.5 mg/dL (0.2-1.3); Total Protein 6.6 g/dL (6.3-8.2)
[2021-05-24 20:03] LABS: Appearance,Urine Clear (Clear); Bacteria,Urine Rare /hpf; Bilirubin,Urine Negative (Negative); Blood,Urine Negative (Negative); Color,Urine Yellow; Glucose,Urine (UA) Negative (Negative); Ketones,Urine Negative (Negative); Leukocyte Esterase,Urine Negative (Negative); Mucus,Urine Rare /hpf; Nitrite,Urine Negative (Negative); PH, Urine 6.5 (5.0-8.0); Protein,Urine 1+ (Negative); RBC,Urine <1 /hpf (0-5); Specific Gravity,Urine 1.012 (1.001-1.035); Squamous Epithelial Cell,Urine 1 /hpf (0-4); WBC,Urine 1 /hpf (0-5)
--- NOTE | 2021-05-24 20:47 | US ---
EXAMINATION TYPE: US venous doppler duplex LE BI DATE OF EXAM: 05/24/2021 8:09 PM COMPARISON: 2019 CLINICAL HISTORY: B/L leg swelling. Swelling and pain bilateral lower extremities SIDE PERFORMED: Bilateral TECHNIQUE: The lower extremity deep venous system is examined utilizing real time linear array sonog jennifer with graded compression, doppler sonography and color-flow sonography. VESSELS IMAGED: Common Femoral Vein Deep Femoral Vein Greater Saphenous Vein * Femoral Vein Popliteal Vein Small Saphenous Vein * Proximal Calf Veins (* superficial vessels) Right Leg: Appears negative for DVT Left Leg: Appears negative for DVT Grayscale, color doppler, spectral doppler imaging performed of the deep veins of the lower extremiti es. There is normal flow, compressibility, vascular waveforms. IMPRESSION: No evidence of deep vein embolus of either lobectomy.
[2021-05-24] MEDS ORDERED: NALOXONE 0.4 MG/ML 1 ML VIAL IV PRN (21:48)
[2021-05-24] MEDS ORDERED: ACETAMINOPHEN TAB 325 MG TAB PO PRN (21:48)
[2021-05-24] MEDS ORDERED: LABETALOL 5 MG/ML VIAL MDV IVP STA (22:06)
[2021-05-25] MEDS ORDERED: ASPIRIN 325 MG TAB PO STA (03:37)
[2021-05-25 05:18] LABS: Albumin 3.3 g/dL (3.5-5.0); Calcium 8.3 mg/dL (8.4-10.2); Magnesium 1.7 mg/dL (1.6-2.3); Total Bilirubin 1.1 mg/dL (0.2-1.3); Total Protein 5.8 g/dL (6.3-8.2)
[2021-05-25 05:51] LABS: Anisocytosis Slight; Basophils % (A) 0 %; Eosinophils # (A) 0.1 k/uL (0-0.7); Eosinophils % (A) 2 %; HCT 43.5 % (34.0-46.0); HGB 13.4 gm/dL (11.4-16.0); Hypochromasia Moderate; Lymphocytes # (A) 1.1 k/uL (1.0-4.8); Lymphocytes % (A) 27 %; MCH 27.1 pg (25.0-35.0); MCHC 30.8 g/dL (31.0-37.0); MCV 87.9 fL (80.0-100.0); Mean Platelet Volume 8.8; Monocytes # (A) 0.2 k/uL (0-1.0); Monocytes % (A) 5 %; Neutrophils # (A) 2.5 k/uL (1.3-7.7); Neutrophils % (A) 61 %; Platelet Count 175 k/uL (150-450); RBC 4.95 m/uL (3.80-5.40); WBC 4.1 k/uL (3.8-10.6)
[2021-05-25] MEDS ORDERED: APIXABAN 5 MG TAB PO SCH (09:00)
[2021-05-25] MEDS ORDERED: NITROGLYCERIN 0.4MG/HR PATCH TRANSDERM PRN (11:03)
[2021-05-25] MEDS ORDERED: traZODone HCL 50 MG TAB PO PRN (11:03)
[2021-05-25] MEDS ORDERED: FUROSEMIDE 80 MG TAB PO PRN (11:03)
[2021-05-25] MEDS ORDERED: FLUTICASONE 50MCG/SPRAY NASAL 16GM EA NOSTRIL PRN (11:03)
[2021-05-25] MEDS ORDERED: ALBUTEROL NEBULIZED 2.5 MG/3 ML INHALATION PRN (11:03)
[2021-05-25] MEDS ORDERED: NITROGLYCERIN SL TABS 0.4 MG TAB SUBLINGUAL PRN (11:03)
[2021-05-25] MEDS: CLOPIDOGREL 75 MG TAB PO SCH (12:33)
[2021-05-25] MEDS: PANTOPRAZOLE 40 MG TABLET PO SCH ×2 (12:33→17:49)
[2021-05-25] MEDS: LOSARTAN 50 MG TAB PO SCH (12:33)
[2021-05-25] MEDS: hydrALAZINE HCL 50 MG TAB PO SCH ×3 (12:34→21:26)
[2021-05-25] MEDS: POTASSIUM CHLORIDE ER 20 MEQ TAB.ER PO SCH (12:34)
[2021-05-25] MEDS: carvediloL 12.5 MG TAB PO SCH ×3 (12:34→21:03)
[2021-05-25] MEDS: FERROUS SULFATE 325 MG TAB PO SCH (12:35)
[2021-05-25] MEDS: SERTRALINE 50 MG TAB PO SCH (12:35)
[2021-05-25] MEDS: SPIRONOLACTONE 25 MG TAB PO SCH (12:35)
[2021-05-25] MEDS: APIXABAN 5 MG TAB PO SCH ×2 (12:35→21:31)
[2021-05-25] MEDS: amLODIPine 10 MG TAB PO SCH (12:35)
[2021-05-25] MEDS: EZETIMIBE 10 MG TAB PO SCH (12:36)
[2021-05-25] MEDS: metOLazone 5 MG TAB PO SCH (12:36)
[2021-05-25] MEDS: ONDANSETRON 4 MG/2 ML VIAL IVP PRN ×2 (12:38→17:49)
--- NOTE | 2021-05-25 12:49 | P.CRDCN ---
History of Present Illness History of present illness: This is a 40-year-old female with a past medical history significant for coronary artery disease with previous stenting, hypertension, hyperlipidemia, congestive heart failure, and LV thrombus on anticoagulation with Eliquis, type 2 diabetes. Patient follows in the office with Dr. Davila. We have been asked to see the patient in consultation for "CHF, CAD, and elvated troponin". Patient presented to the emergency department with complaints of worsening lower extremity edema and weight gain. Patient states about 1-2 months ago she noted worsening bilateral lower extremity. Her Lasix was increased to 40mg BID. Her edema she states slightly improved and then worsened again about 2 weeks ago. Her Lasix was adjusted again to 80mg morning and 40mg at night for 1 week. Still no improvement. Metolazone 5mg was added. Then patient was taking 80mg BID for 4 days out of 7 out of the week. With no improvement she came to the hospital for further evaluation. He denies chest pain, shortness of breath, orthopnea or PND. She denies any palpitations, syncope or near syncope. DIAGNOSTICS -EKG reveals sinus rhythm HR 88, left atrial enlargement, poor R wave progression, no acute ST-T wave abnormalities to suggest ischemia -Chest xray persistent cardiomegaly with slightly congested pulmonary vascular. -Laboratory data: troponin 0.04, 0.04, troponin 04, proBNP 1650, sodium 135, potassium 4.0, P1 20, serum creatinine 1.1, magnesium 1.7 -Current home cardiac medications include Eliquis 5 mg twice a day, aspirin 81mg daily, atorvastatin 80 mg nightly, Plavix 75 mg daily, Lasix 80 mg BID PRN, carvedilol 25 mg twice a day, amlodipine 10mg daily , hydralazine 100mg TID, metolazone 5 mg daily, losartan 100 mg daily, spironolactone 25mg daily -Most recent echocardiogram obtained in September 2020 which revealed EF of 4045% apex hypokinesis, mild mitral regurgitation , moderate tricuspid regurgitation. -Cardiac catheterization history: 10/05/20 revealed patent stent in LAD and left circumflex, critical stenosis in the first diagonal branch and the fourth obtuse marginal branch without progression compared to 2019. November 2019 underwent cardiac catheterization in [place] patent stent to the LAD and circumflex April 2019 with stent placement to LAD REVIEW OF SYSTEMS: At the time of my exam: CONSTITUTIONAL: Denies fever or chills. HEENT: Denies blurred vision, vision changes, or eye pain. Denies hemoptysis CARDIOVASCULAR: + chest pain. Denies orthopnea. Denies PND. Denies palpitations RESPIRATORY: +shortness of breath. GASTROINTESTINAL: Denies abdominal pain. Denies nausea or vomiting. HEMATOLOGIC: Denies bleeding disorders. GENITOURINARY: Denies any blood in urine. SKIN: Denies pruitis. Denies rash. PHYSICAL EXAM: VITAL SIGNS: Reviewed. GENERAL: Well-developed in no acute distress. HEENT: Head is normocephalic. Pupils are equal, round. Sclerae anicteric. Mucous membranes of the mouth are moist. Neck supple. No JVD LUNGS: Respirations even and unlabored. Lungs clear bilaterally. HEART: Regular rate and rhythm. S1 and S2 heard. Systolic ejection murmur ABDOMEN: Soft. Nondistended. Nontender. EXTREMITIES: Normal range of motion. No clubbing or cyanosis. Peripheral pulses intact. 3+ bilateral lower extremity edema SKIN: Right schuster with erythema noted, some clear discharge NEUROLOGIC: Awake and alert. Oriented x 3. ASSESSMENT: Elevated troponin, not consistent with acute coronary syndrome, no acute ischemia noted on EKG, likely related to heart failure Acute exacerbation of chronic heart failure with preserved ejection fraction, borderline EF 40-45%, repeat echo pending Coronary artery disease with previous PCI to LAD and circumflex History of LV thrombus, on anticoagulation with Eliquis Hypertension Hyperlipidemia Morbid obesity Anxiety Depression Bipolar disorder PLAN: Continue IV Diuresis Monitor I/os, daily weights renal function and electrolytes Continue home cardiac medications Obtain 2D echocardiogram Further recommendations based on clinic course Past Medical History Past Medical History: Atrial Fibrillation, Asthma, Coronary Artery Disease (CAD), Diabetes Mellitus, GERD/Reflux, Hyperlipidemia, Hypertension, Myocardial Infarction ([place]), Pulmonary Embolus ([place]) Additional Past Medical History / Comment(s): peptic ulcer, gall stones, kidney stone, childhood leukemia, [place] X7 Last Myocardial Infarction Date:: 05/01/2019 History of Any Multi-Drug Resistant Organisms: None Reported Past Surgical History: Section, Heart Catheterization With Stent, Joint Replacement, Tonsillectomy, Tubal Ligation Additional Past Surgical History / Comment(s): 4 stents, partial right knee replacement Past Anesthesia/Blood Transfusion Reactions: No Reported Reaction Date of Last Stent Placement:: 08/02/18 Past Psychological History: Anxiety, Bipolar, Depression, Schizophrenia Smoking Status: Former smoker Past Alcohol Use History: None Reported Past Drug Use History: None Reported - Past Family History Father Family Medical History: Hyperlipidemia, Hypertension Additional Family Medical History / Comment(s): pins in knee, heart stents x 4 Medications and Allergies Home Medications Medication Instructions Recorded Confirmed Type Ferrous Sulfate [Iron] 325 mg PO DAILY 07/11/18 05/24/21 History carvediloL 25 mg PO BID 07/11/18 05/24/21 History Atorvastatin [Lipitor] 80 mg PO HS #30 tab 12/06/18 05/24/21 Rx Clopidogrel [Plavix] 75 mg PO DAILY #30 tab 12/06/18 05/24/21 Rx Semaglutide [Ozempic] 0.5 mg SQ MO@2100 11/19/19 05/24/21 History Apixaban [Eliquis] 5 mg PO BID #180 tab 11/21/19 05/24/21 Rx ALPRAZolam [Xanax] 0.5 mg PO BID PRN 06/16/20 05/24/21 History Albuterol Sulfate [Ventolin HFA] 1 - 2 puff INHALATION RT-QID PRN 06/16/20 05/24/21 History Albuterol Nebulized [Ventolin 2.5 mg INHALATION RT-QID PRN 08/07/20 05/24/21 History Nebulized] Budesonide/Formoterol Fumarate 2 puff INHALATION RT-BID 08/07/20 05/24/21 History [Symbicort 160-4.5 Mcg Inhaler] Fluticasone Nasal [place] [Flonase 1 spray EA NOSTRIL DAILY PRN 08/07/20 05/24/21 History Nasal [place]ill[place]] Insulin Glargine,Hum.rec.anlog 40 unit SQ HS 08/07/20 05/24/21 History [Lantus Solostar Pen] Montelukast [Singulair] 10 mg PO HS 08/07/20 05/24/21 History Multivitamins, Thera [Multivitamin 1 tab PO DAILY 08/07/20 05/24/21 History (formulary)] Nitroglycerin [Nitro-Dur 0.4MG/Hr 1 patch TRANSDERM Q48H PRN 08/07/20 05/24/21 History Patch] hydrALAZINE HCL [Apresoline] 100 mg PO TID #90 tab 08/09/20 05/24/21 Rx traZODone HCL [Desyrel] 50 mg PO HS PRN 10/05/20 05/24/21 History HYDROcodone/APAP 5-325MG [[place] 1 tab PO Q6HR PRN 3 Days #12 tab 12/28/20 05/24/21 Rx 5-325] Losartan Potassium [Cozaar] 100 mg PO DAILY 02/01/21 05/24/21 History rOPINIRole HCL [Requip] 0.25 mg PO HS 02/01/21 05/24/21 History Ezetimibe [Zetia] 10 mg PO DAILY #30 tab 02/02/21 05/24/21 Rx Pantoprazole [Protonix] 40 mg PO BID #60 tab 02/02/21 05/24/21 Rx Potassium Chloride ER [K-Dur 20] 20 meq PO DAILY #30 tablet 02/02/21 05/24/21 Rx Sertraline [Zoloft] 50 mg PO DAILY #30 tab 02/02/21 05/24/21 Rx amLODIPine [Norvasc] 10 mg PO DAILY #30 tab 02/02/21 05/24/21 Rx Aspirin EC [Ecotrin Low Dose] 81 mg PO DAILY 03/06/21 05/24/21 History Spironolactone [Aldactone] 25 mg PO DAILY 03/06/21 05/24/21 History metOLazone [Zaroxolyn] 5 mg PO DAILY 03/06/21 05/24/21 History Furosemide [Lasix] 80 mg PO BID PRN #60 tab 03/08/21 05/24/21 Rx Nitroglycerin Sl Tabs [Nitrostat] 0.4 mg SUBLINGUAL Q5M PRN 05/04/21 05/24/21 History Allergies Allergy/AdvReac Type Severity Reaction Status Date / Time cephalexin [From Keflex] Allergy Rash/Hives Verified 05/24/21 20:21 codeine Allergy Rash/Hives Verified 05/24/21 20:21 Iodine and Iodide Containing Allergy Rash/Hives Verified 05/24/21 20:21 Produc Penicillins Allergy Rash/Hives Verified 05/24/21 20:21 tramadol Allergy Rash/Hives Verified 05/24/21 20:21 Physical Exam Vitals: Vital Signs Temp Pulse Resp BP Pulse Ox 05/25/21 06:05 99 F 97 18 136/102 97 05/24/21 23:00 84 16 136/98 97 05/24/21 22:25 139/89 05/24/21 21:34 91 20 172/119 98 05/24/21 18:40 91 20 159/108 98 05/24/21 15:04 97.0 F L 91 20 150/94 98 Intake and Output 05/24/21 05/25/21 05/25/21 22:59 06:59 14:59 Other: Weight 106.141 kg Results 05/25/21 04:52 05/25/21 04:52 Cardiac Enzymes 05/24/21 05/24/21 05/25/21 Range/Units 18:40 18:40 01:43 AST 20 (14-36) U/L Troponin I 0.046 H* 0.042 H* (0.000-0.034) ng/mL 05/25/21 05/25/21 Range/Units 04:52 04:52 AST 19 (14-36) U/L Troponin I 0.048 H* (0.000-0.034) ng/mL CBC 05/24/21 05/25/21 Range/Units 18:40 04:52 WBC 5.3 4.1 (3.8-10.6) k/uL RBC 5.29 4.95 (3.80-5.40) m/uL Hgb 14.3 13.4 (11.4-16.0) gm/dL Hct 45.5 43.5 (34.0-46.0) % Plt Count 188 175 (150-450) k/uL Comprehensive Metabolic Panel 05/24/21 05/25/21 Range/Units 18:40 04:52 Sodium 135 L 135 L (137-145) mmol/L Potassium 3.8 4.0 (3.5-5.1) mmol/L Chloride 101 104 (98-107) mmol/L Carbon Dioxide 26 26 (22-30) mmol/L BUN 15 20 H (7-17) mg/dL Creatinine 0.99 1.19 H (0.52-1.04) mg/dL Glucose 188 H 172 H (74-99) mg/dL Calcium 8.5 8.3 L (8.4-10.2) mg/dL AST 20 19 (14-36) U/L ALT 16 14 (4-34) U/L Alkaline Phosphatase 60 50 (38-126) U/L Total Protein 6.6 5.8 L (6.3-8.2) g/dL Albumin 3.8 3.3 L (3.5-5.0) g/dL Current Medications Generic Name Dose Route Start Last Admin Trade Name Freq PRN Reason Stop Dose Admin Acetaminophen 650 mg 05/24/21 21:48 Acetaminophen Tab 325 Mg Tab PO Q6HR PRN Mild Pain or Fever > 100.5 Hydrocodone Bitart/Acetaminophen 1 each 05/25/21 11:03 Hydrocodone/Apap 5-325mg 1 Each Tab PO Q6HR PRN Pain Albuterol Sulfate 2.5 mg 05/25/21 11:03 Albuterol Nebulized 2.5 Mg/3 Ml INHALATION RT-QID PRN Shortness Of Breath Alprazolam 0.5 mg 05/25/21 11:03 Alprazolam 0.5 Mg Tab PO BID PRN Anxiety Amlodipine Besylate 10 mg 05/25/21 11:15 Amlodipine 10 Mg Tab PO DAILY [facility] Apixaban 5 mg 05/25/21 09:00 Apixaban 5 Mg Tab PO 05/31/21 21:01 BID [facility] Protocol Apixaban 5 mg 05/25/21 11:15 Apixaban 5 Mg Tab PO BID [facility] Protocol Aspirin 81 mg 05/26/21 09:00 Aspirin 81 Mg PO DAILY [facility] Atorvastatin Calcium 80 mg 05/25/21 21:00 Atorvastatin 80 Mg Tab PO [facility] Budesonide/Formoterol Fumarate 2 puff 05/25/21 20:00 Symbicort 160-4.5 Mcg Inhaler INHALATION RT-BID [facility] Carvedilol 25 mg 05/25/21 11:15 Carvedilol 12.5 Mg Tab PO BID-W/MEALS [facility] Clopidogrel Bisulfate 75 mg 05/25/21 11:15 Clopidogrel 75 Mg Tab PO DAILY [facility] Ezetimibe 10 mg 05/25/21 11:15 Ezetimibe 10 Mg Tab PO DAILY [facility] Ferrous Sulfate 325 mg 05/25/21 11:15 Ferrous Sulfate 325 Mg Tab PO DAILY [facility] Fluticasone Propionate 1 spray 05/25/21 11:03 Fluticasone 50mcg/[place] Nasal 16gm EA NOSTRIL DAILY PRN Congestion Furosemide 80 mg 05/25/21 11:03 Furosemide 80 Mg Tab PO BID PRN Edema Hydralazine HCl 100 mg 05/25/21 11:15 Hydralazine Hcl 50 Mg Tab PO TID [facility] Losartan Potassium 100 mg 05/25/21 11:15 Losartan 50 Mg Tab PO DAILY [facility] Metolazone 5 mg 05/25/21 11:15 Metolazone 5 Mg Tab PO DAILY [facility] Montelukast Sodium 10 mg 05/25/21 21:00 Montelukast 10 Mg Tab PO HS [place] Naloxone HCl 0.2 mg 05/24/21 21:48 Naloxone 0.4 Mg/Ml 1 Ml Vial IV Q2M PRN Opioid Reversal Nitroglycerin 1 patch 05/25/21 11:03 Nitroglycerin 0.4mg/Hr Patch TRANSDERM Q48H PRN Chest Pain Nitroglycerin 0.4 mg 05/25/21 11:03 Nitroglycerin Sl Tabs 0.4 Mg Tab SUBLINGUAL Q5M PRN Chest Pain Non-Formulary Medication 40 unit 05/25/21 21:00 Insulin Glargine,Hum.Rec.Anlog [Lantus Solostar Pen] SQ HS [place] Non-Formulary Medication 0.5 mg 05/31/21 21:00 Semaglutide [Ozempic] SQ MO@2100 [facility] Pantoprazole Sodium 40 mg 05/25/21 11:15 Pantoprazole 40 Mg Tablet PO AC-BID [facility] Potassium Chloride 20 meq 05/25/21 11:15 Potassium Chloride Er 20 Meq Tab.Er PO DAILY [facility] Ropinirole HCl 0.25 mg 05/25/21 21:00 Ropinirole Hcl 0.25 Mg Tab PO HS [place] Sertraline HCl 50 mg 05/25/21 11:15 Sertraline 50 Mg Tab PO DAILY [facility] Spironolactone 25 mg 05/25/21 11:15 Spironolactone 25 Mg Tab PO DAILY [facility] Trazodone HCl 50 mg 05/25/21 11:03 Trazodone Hcl 50 Mg Tab PO HS PRN sleep Intake and Output 05/24/21 05/25/21 05/25/21 22:59 06:59 14:59 Other: Weight 106.141 kg 05/25/21 04:52 05/25/21 04:52
--- NOTE | 2021-05-25 15:49 | HP ---
HISTORY AND PHYSICAL CHIEF COMPLAINT: Swelling and shortness of breath. HISTORY OF PRESENT ILLNESS: This is another admission for this 40-year-old white female who has atherosclerotic cardiomyopathy and malignant hypertension. She has been doing fairly well, but she started to develop generalized edema and shortness of breath and came to the office for evaluation. She was then sent to the emergency room, where it was determined that she was back into congestive heart failure. She has had no pain. She has had no syncope. She has had no fever or chills. REVIEW OF SYSTEMS: She has had no neurologic issues, cough, hemoptysis, chest pain, abdominal pain, nausea, vomiting, dysuria, frequency, urgency, etc. Past medical history, family history, and personal and social histories reveal that she is ALLERGIC TO CODEINE, TRAMADOL, IODINE, PENICILLIN, CEPHALOSPORINS. Her medications include spironolactone, losartan, trazodone, Ozempic once a week, Lantus 40 units, ropinirole 0.25 at bedtime, albuterol HFA, amlodipine 5 mg, metolazone 25 mg, ezetimibe 10 mg, KCl 20 mEq once a day, Symbicort, Dilaudid for pain, clopidogrel, atorvastatin, pantoprazole, hydralazine, Lasix, Xanax, sertraline, Eliquis, iron, carvedilol and albuterol. The remainder of her history is unremarkable. She used to smoke but does not any longer. She does not drink. PHYSICAL EXAMINATION: Blood pressure 146/90 with a pulse of 93, respirations of 38, and she appeared to be slightly short of breath. She was overweight. Head, ears, eyes, nose, mouth and throat were normal. The chest demonstrated decreased breath sounds with scattered rales throughout. Cardiac exam demonstrated what sounded like sinus rhythm with no murmurs or extra sounds. The abdomen was slightly protuberant, soft and nontender. There were no masses or visceromegaly. Extremities were normal. Neurologically she was intact. She is admitted to the hospital with the diagnoses: 1. Acute congestive heart failure. 2. Chronic congestive heart failure. 3. Atherosclerotic cardiomyopathy. PLAN: 1. Bedrest. 2. IV fluids. 3. Diuresis. 4. Consult Cardiology. MMODL / IJN: [id number] /
[2021-05-25] MEDS ORDERED: FUROSEMIDE 10 MG/ML 4 ML VIAL IV SCH (17:00)
[2021-05-25] MEDS: SYMBICORT 160-4.5 MCG INHALER INHALATION SCH (19:39)
[2021-05-25 20:26] LABS: Glucose,Whole Blood 179 mg/dL (75-99)
[2021-05-25] MEDS: FUROSEMIDE 10 MG/ML 4 ML VIAL IV SCH (21:03)
[2021-05-25] MEDS: INSULIN DETEMIR (LEVEMIR) 100 UNIT/ML SYR SQ SCH (21:31)
[2021-05-25] MEDS: ATORVASTATIN 80 MG TAB PO SCH (21:31)
[2021-05-25] MEDS: MONTELUKAST 10 MG TAB PO SCH (21:31)
[2021-05-26] MEDS: FUROSEMIDE 10 MG/ML 4 ML VIAL IV SCH ×3 (00:41→21:15)
[2021-05-26 06:02] LABS: Glucose,Whole Blood 127 mg/dL (75-99)
[2021-05-26] MEDS: PANTOPRAZOLE 40 MG TABLET PO SCH ×2 (06:39→17:06)
[2021-05-26] MEDS: carvediloL 12.5 MG TAB PO SCH ×2 (06:39→17:06)
[2021-05-26 07:51] LABS: Calcium 8.9 mg/dL (8.4-10.2); Magnesium 1.7 mg/dL (1.6-2.3); Potassium 4.1 mmol/L (3.5-5.1)
--- NOTE | 2021-05-26 08:00 | ECHOF ---
Referral Reason:LV function, worsening LE edema MEASUREMENTS -------- HEIGHT: 157.5 cm WEIGHT: 106.1 kg BP: 161/113 IVSd: 2.0 cm (0.6 - 1.1) LVIDd: 4.2 cm (3.9 - 5.3) LVPWd: 1.8 cm (0.6 - 1.1) IVSs: 2.4 cm LVIDs: 3.3 cm LVPWs: 1.9 cm LAESV Index (A-L): 37.99 ml/m Ao Diam: 3.0 cm (2.0 - 3.7) AV Cusp: 2.2 cm (1.5 - 2.6) LA Diam: 5.8 cm (2.7 - 3.8) MV EXCURSION: 16.937 mm (> 18.000) MV EF SLOPE: 45 mm/s (70 - 150) EPSS: 0.6 cm MV E Terrell: 1.17 m/s MV DecT: 193 ms MV A Terrell: 0.51 m/s MV E/A Ratio: 2.31 RAP: 5.00 mmHg RVSP: 34.76 mmHg FINDINGS -------- Sinus rhythm. This was a technically difficult study with suboptimal apical views. The left ventricular size is normal. There is severe concentric left ventricular hypertrophy. Ove rall left ventricular systolic function is severely impaired with, an EF between 20 - 25 %. [place] pokinesis. Apical thrombus noted. EF is worse. The right ventricle is normal in size. LA is moderately dilated 34-39 ml/m2 The right atrial size is normal. 5.0mg of Lumason was utilized for enhancement of images Interatrial and interventricular septum intact. There is no evidence of aortic regurgitation. There is no evidence of aortic stenosis. Mild mitral regurgitation is present. Mild tricuspid regurgitation present. There is no evidence of pulmonary hypertension. The right v entricular systolic pressure, as measured by Doppler, is 34.76mmHg. There is no pulmonic regurgitation present. The mass is located in the apical portion of the left ventricle. The aortic root size is normal. IVC Not well visulized. Echo free space represents a pericardial fat pad. There is a small pericardial effusion located elke r the left ventricle. CONCLUSIONS -------- 1. The left ventricular size is normal. 2. There is severe concentric left ventricular hypertrophy. 3. Overall left ventricular systolic function is severely impaired with, an EF between 20 - 25 %. 4. Apical thrombus noted. EF is worse. 5. LA is moderately dilated 34-39 ml/m2 6. Mild mitral regurgitation is present. 7. Mild tricuspid regurgitation present. 8. The mass is located in the apical portion of the left ventricle. 9. There is a small pericardial effusion located near the left ventricle. QA SOFTWARE TEST ENGINEER: Yee Davis RDCS
[2021-05-26] MEDS: SYMBICORT 160-4.5 MCG INHALER INHALATION SCH ×2 (08:30→20:18)
[2021-05-26] MEDS: CLOPIDOGREL 75 MG TAB PO SCH (09:17)
[2021-05-26] MEDS: ASPIRIN 81 MG PO SCH (09:17)
[2021-05-26] MEDS: SERTRALINE 50 MG TAB PO SCH (09:17)
[2021-05-26] MEDS: SPIRONOLACTONE 25 MG TAB PO SCH (09:17)
[2021-05-26] MEDS: APIXABAN 5 MG TAB PO SCH ×2 (09:17→21:14)
[2021-05-26] MEDS: FERROUS SULFATE 325 MG TAB PO SCH (09:17)
[2021-05-26] MEDS: POTASSIUM CHLORIDE ER 20 MEQ TAB.ER PO SCH (09:17)
[2021-05-26] MEDS: EZETIMIBE 10 MG TAB PO SCH (09:17)
[2021-05-26] MEDS: metOLazone 5 MG TAB PO SCH (09:18)
[2021-05-26] MEDS: LOSARTAN 50 MG TAB PO SCH (09:29)
[2021-05-26] MEDS: amLODIPine 10 MG TAB PO SCH (09:29)
[2021-05-26] MEDS: hydrALAZINE HCL 50 MG TAB PO SCH ×3 (09:29→21:14)
[2021-05-26 12:18] LABS: Glucose,Whole Blood 159 mg/dL (75-99)
[2021-05-26] MEDS: ALPRAZolam 0.5 MG TAB PO PRN (13:01)
--- NOTE | 2021-05-26 13:38 | P.PN ---
Subjective This is a 40-year-old female with a past medical history significant for coronary artery disease with previous stenting, hypertension, hyperlipidemia, congestive heart failure, and LV thrombus on anticoagulation with Eliquis, type 2 diabetes. Patient follows in the office with Dr. Davila. We have been asked to see the patient in consultation for "CHF, CAD, and elvated troponin". Patient presented to the emergency department with complaints of worsening lower extremity edema and weight gain. Patient states about 1-2 months ago she noted worsening bilateral lower extremity. Her Lasix was increased to 40mg BID. Her edema she states slightly improved and then worsened again about 2 weeks ago. Her Lasix was adjusted again to 80mg morning and 40mg at night for 1 week. Still no improvement. Metolazone 5mg was added. Then patient was taking 80mg BID for 4 days out of 7 out of the week. With no improvement she came to the hospital for further evaluation. He denies chest pain, shortness of breath, orthopnea or PND. She denies any palpitations, syncope or near syncope. DIAGNOSTICS -Echocardiogram obtained in September 2020 which revealed EF of 4045% apex hypokinesis, mild mitral regurgitation , moderate tricuspid regurgitation. -Cardiac catheterization history: 10/05/20 revealed patent stent in LAD and left circumflex, critical stenosis in the first diagonal branch and the fourth obtuse marginal branch without progression compared to 2019. November 2019 underwent cardiac catheterization in [place] patent stent to the LAD and circumflex April 2019 with stent placement to LAD 05/26/2021 Patient seen and examined at bedside, She states she feels almost back to baseline. She states she feels much better, no complaints. Her lower extremity edema has improved. She states she is urinating frequently. No chest pain or shortness of breath. Echocardiogram revealed decreased EF 20-25%, apical thrombus noted. Mild mitral regurgitation, mild tricuspid regurgitation. Small pericardial effusion. She's currently maintained on IV Lasix 40 mg every 6hr, Eliquis 5 mg twice a day, amlodipine 10 mg daily, aspirin 81 mg daily, atorvastatin 80 mg nightly, carvedilol 25 mg twice a day, Plavix 75 mg daily, Zetia 10 mg daily, hydralazine 100 mg 3 times a day, losartan 100 mg daily, metolazone 5 mg daily, spironolactone 25 mg daily Labs: sodium 136, potassium 4.1, BUN 24, serum creatinine 1.5, magnesium 1.7 PHYSICAL EXAM: VITAL SIGNS: Reviewed. GENERAL: Well-developed in no acute distress. HEENT: Neck supple. No JVD LUNGS: Respirations even and unlabored. Lungs clear bilaterally. HEART: Regular rate and rhythm. S1 and S2 heard. Systolic ejection murmur ABDOMEN: Soft. Nondistended. Nontender. EXTREMITIES: Normal range of motion. No clubbing or cyanosis. Peripheral pulses intact. 2+ bilateral lower extremity edema SKIN: Right schuster with erythema noted, some clear discharge NEUROLOGIC: Awake and alert. Oriented x 3. ASSESSMENT: Elevated troponin, not consistent with acute coronary syndrome, no acute ischemia noted on EKG, likely related to heart failure Acute exacerbation of chronic heart failure with reduced ejection fraction EF 20-25% Worsening cardiomyopathy, unclear if ischemic vs non-ischemic at this time Coronary artery disease with previous PCI to LAD and circumflex History of LV thrombus, on anticoagulation with Eliquis Hypertension Hyperlipidemia Morbid obesity Anxiety Depression Bipolar disorder PLAN: Decrease IV Lasix 40mg BID Monitor I/Os, daily weights renal function and electrolytes Continue home cardiac medications Patient will need cardiomyopathy workup including cardiac catheterization. We will tentatively plan for Monday due to patient's renal function. Patient is agreeable. Further recommendations based on clinic course Objective - Vital Signs Vital signs: Vital Signs Temp 98.4 F 05/26/21 00:00 Pulse 80 05/26/21 12:58 Resp 16 05/26/21 12:58 BP 133/86 05/26/21 12:58 Pulse Ox 96 05/26/21 12:58 Intake & Output 05/25/21 05/26/21 05/26/21 18:59 06:59 18:59 Intake Total 540 360 Output Total 2400 200 Balance -1860 160 Weight 106.141 kg 103.4 kg Intake: Oral 540 360 Output: Urine 2400 200 Other: Voiding Method Bedside Commode Bedside Commode - Labs CBC & Chem 7: 05/25/21 04:52 05/26/21 07:06 Labs: Abnormal Lab Results - Last 24 Hours (Table) 05/25/21 05/26/21 05/26/21 Range/Units 20:25 06:01 07:06 Sodium 136 L (137-145) mmol/L Carbon Dioxide 31 H (22-30) mmol/L BUN 24 H (7-17) mg/dL Creatinine 1.53 H (0.52-1.04) mg/dL Glucose 117 H (74-99) mg/dL POC Glucose (mg/dL) 179 H 127 H (75-99) mg/dL 05/26/21 Range/Units 12:12 Sodium (137-145) mmol/L Carbon Dioxide (22-30) mmol/L BUN (7-17) mg/dL Creatinine (0.52-1.04) mg/dL Glucose (74-99) mg/dL POC Glucose (mg/dL) 159 H (75-99) mg/dL
[2021-05-26 16:56] LABS: Glucose,Whole Blood 171 mg/dL (75-99)
[2021-05-26 19:47] LABS: Glucose,Whole Blood 131 mg/dL (75-99)
[2021-05-26] MEDS: ATORVASTATIN 80 MG TAB PO SCH (21:14)
[2021-05-26] MEDS: HYDROcodone/APAP 5-325MG 1 EACH TAB PO PRN (21:14)
[2021-05-26] MEDS: MONTELUKAST 10 MG TAB PO SCH (21:14)
[2021-05-26] MEDS: INSULIN DETEMIR (LEVEMIR) 100 UNIT/ML SYR SQ SCH (21:15)
[2021-05-27] MEDS: ALPRAZolam 0.5 MG TAB PO PRN (00:04)
[2021-05-27] MEDS: PANTOPRAZOLE 40 MG TABLET PO SCH ×2 (06:40→16:49)
[2021-05-27] MEDS: carvediloL 12.5 MG TAB PO SCH ×2 (06:40→16:49)
[2021-05-27 06:53] LABS: Glucose,Whole Blood 112 mg/dL (75-99)
[2021-05-27] MEDS: SYMBICORT 160-4.5 MCG INHALER INHALATION SCH ×2 (09:05→20:29)
[2021-05-27 09:21] LABS: Calcium 8.6 mg/dL (8.4-10.2); Magnesium 1.6 mg/dL (1.6-2.3); Potassium 4.5 mmol/L (3.5-5.1)
[2021-05-27] MEDS: amLODIPine 10 MG TAB PO SCH (09:21)
[2021-05-27] MEDS: EZETIMIBE 10 MG TAB PO SCH (09:22)
[2021-05-27] MEDS: LOSARTAN 50 MG TAB PO SCH (09:22)
[2021-05-27] MEDS: CLOPIDOGREL 75 MG TAB PO SCH (09:22)
[2021-05-27] MEDS: ASPIRIN 81 MG PO SCH (09:22)
[2021-05-27] MEDS: hydrALAZINE HCL 50 MG TAB PO SCH ×3 (09:22→20:15)
[2021-05-27] MEDS: SERTRALINE 50 MG TAB PO SCH (09:22)
[2021-05-27] MEDS: APIXABAN 5 MG TAB PO SCH ×2 (09:22→20:15)
[2021-05-27] MEDS: POTASSIUM CHLORIDE ER 20 MEQ TAB.ER PO SCH (09:22)
[2021-05-27] MEDS: SPIRONOLACTONE 25 MG TAB PO SCH (09:22)
[2021-05-27] MEDS: FERROUS SULFATE 325 MG TAB PO SCH (09:22)
[2021-05-27] MEDS: FUROSEMIDE 10 MG/ML 4 ML VIAL IV SCH (09:23)
[2021-05-27] MEDS: metOLazone 5 MG TAB PO SCH (09:26)
[2021-05-27] MEDS: ONDANSETRON 4 MG/2 ML VIAL IVP PRN (09:35)
[2021-05-27 12:20] LABS: Glucose,Whole Blood 128 mg/dL (75-99)
--- NOTE | 2021-05-27 13:08 | P.PN ---
Subjective This is a 40-year-old female with a past medical history significant for coronary artery disease with previous stenting, hypertension, hyperlipidemia, congestive heart failure, and LV thrombus on anticoagulation with Eliquis, type 2 diabetes. Patient follows in the office with Dr. Davila. We have been asked to see the patient in consultation for "CHF, CAD, and elvated troponin". Patient presented to the emergency department with complaints of worsening lower extremity edema and weight gain. Patient states about 1-2 months ago she noted worsening bilateral lower extremity. Her Lasix was increased to 40mg BID. Her edema she states slightly improved and then worsened again about 2 weeks ago. Her Lasix was adjusted again to 80mg morning and 40mg at night for 1 week. Still no improvement. Metolazone 5mg was added. Then patient was taking 80mg BID for 4 days out of 7 out of the week. With no improvement she came to the hospital for further evaluation. He denies chest pain, shortness of breath, orthopnea or PND. She denies any palpitations, syncope or near syncope. DIAGNOSTICS -Echocardiogram obtained in September 2020 which revealed EF of 4045% apex hypokinesis, mild mitral regurgitation , moderate tricuspid regurgitation. -Cardiac catheterization history: 10/05/20 revealed patent stent in LAD and left circumflex, critical stenosis in the first diagonal branch and the fourth obtuse marginal branch without progression compared to 2019. November 2019 underwent cardiac catheterization in [place] patent stent to the LAD and circumflex April 2019 with stent placement to LAD 05/27/2021 Patient seen and examined at bedside, She states she feels almost back to baseline. She states she feels much better, no complaints. Her lower extremity edema has significantly improved. She states she is urinating frequently. No chest pain or shortness of breath. Echocardiogram revealed decreased EF 20-25%, apical thrombus noted. Mild mitral regurgitation, mild tricuspid regurgitation. Small pericardial effusion. She's currently maintained on IV Lasix 40 mg BID, Eliquis 5 mg twice a day, amlodipine 10 mg daily, aspirin 81 mg daily, atorvastatin 80 mg nightly, carvedilol 25 mg twice a day, Plavix 75 mg daily, Zetia 10 mg daily, hydralazine 100 mg 3 times a day, losartan 100 mg daily, metolazone 5 mg daily, spironolactone 25 mg daily Labs: sodium 136, potassium 4.5, BUN 24, serum creatinine 1.91, magnesium 1.6 PHYSICAL EXAM: VITAL SIGNS: Reviewed. GENERAL: Well-developed in no acute distress. HEENT: Neck supple. No JVD LUNGS: Respirations even and unlabored. Lungs clear bilaterally. HEART: Regular rate and rhythm. S1 and S2 heard. Systolic ejection murmur ABDOMEN: Soft. Nondistended. Nontender. EXTREMITIES: Normal range of motion. No clubbing or cyanosis. Peripheral pulses intact. 2+ bilateral lower extremity edema SKIN: Right schuster with erythema noted, some clear discharge NEUROLOGIC: Awake and alert. Oriented x 3. ASSESSMENT: Elevated troponin, not consistent with acute coronary syndrome, no acute ischemia noted on EKG, likely related to heart failure Acute exacerbation of chronic heart failure with reduced ejection fraction EF 20-25% Worsening cardiomyopathy, unclear if ischemic vs non-ischemic at this time Coronary artery disease with previous PCI to LAD and circumflex History of LV thrombus, on anticoagulation with Eliquis Hypertension Hyperlipidemia Morbid obesity Anxiety Depression Bipolar disorder PLAN: -Hold Lasix due to acute kidney injury -Discontinue amlodipine, may be contributing to patient's lower extremity edema -Repeat 2D echo tomorrow to evaluate LV function -Monitor I/Os, daily weights renal function and electrolytes -Continue home cardiac medications -Patient will need cardiomyopathy workup as an outpatient. We do not recommend cardiac catheterization at this time, due to [place]. -Further recommendations based on clinic course Objective - Vital Signs Vital signs: Vital Signs Temp 97.5 F L 05/27/21 08:29 Pulse 82 05/27/21 12:00 Resp 16 05/27/21 12:00 BP 95/60 05/27/21 12:00 Pulse Ox 96 05/27/21 12:00 Intake & Output 05/26/21 05/27/21 05/27/21 18:59 06:59 18:59 Intake Total 360 14 Output Total 400 2175 Balance -40 14 -2175 Intake: IV 14 Invasive Line 1 14 Oral 360 Output: Urine 400 2175 Other: Voiding Method Bedside Commode Bedside Commode Bedside Commode - Labs CBC & Chem 7: 05/25/21 04:52 05/27/21 08:14 Labs: Abnormal Lab Results - Last 24 Hours (Table) 05/26/21 05/26/21 05/27/21 Range/Units 16:48 19:45 06:50 Sodium (137-145) mmol/L Chloride (98-107) mmol/L BUN (7-17) mg/dL Creatinine (0.52-1.04) mg/dL POC Glucose (mg/dL) 171 H 131 H 112 H (75-99) mg/dL 05/27/21 05/27/21 Range/Units 08:14 12:07 Sodium 136 L (137-145) mmol/L Chloride 97 L (98-107) mmol/L BUN 34 H (7-17) mg/dL Creatinine 1.91 H (0.52-1.04) mg/dL POC Glucose (mg/dL) 128 H (75-99) mg/dL
[2021-05-27 16:58] LABS: Glucose,Whole Blood 131 mg/dL (75-99)
[2021-05-27] MEDS: MONTELUKAST 10 MG TAB PO SCH (20:15)
[2021-05-27] MEDS: ATORVASTATIN 80 MG TAB PO SCH (20:15)
[2021-05-27 20:43] LABS: Glucose,Whole Blood 139 mg/dL (75-99)
[2021-05-27] MEDS: INSULIN DETEMIR (LEVEMIR) 100 UNIT/ML SYR SQ SCH (21:32)
[2021-05-28 05:42] LABS: Glucose,Whole Blood 159 mg/dL (75-99)
[2021-05-28] MEDS: carvediloL 12.5 MG TAB PO SCH ×2 (06:27→17:24)
[2021-05-28] MEDS: PANTOPRAZOLE 40 MG TABLET PO SCH ×2 (06:28→17:24)
[2021-05-28 07:38] LABS: Potassium 4.2 mmol/L (3.5-5.1)
[2021-05-28 07:39] LABS: Calcium 8.7 mg/dL (8.4-10.2)
[2021-05-28] MEDS: SYMBICORT 160-4.5 MCG INHALER INHALATION SCH ×2 (08:37→21:41)
[2021-05-28] MEDS: LOSARTAN 50 MG TAB PO SCH (09:44)
[2021-05-28] MEDS: EZETIMIBE 10 MG TAB PO SCH (09:45)
[2021-05-28] MEDS: POTASSIUM CHLORIDE ER 20 MEQ TAB.ER PO SCH (09:45)
[2021-05-28] MEDS: metOLazone 5 MG TAB PO SCH (09:45)
[2021-05-28] MEDS: SERTRALINE 50 MG TAB PO SCH (09:45)
[2021-05-28] MEDS: SPIRONOLACTONE 25 MG TAB PO SCH (09:45)
[2021-05-28] MEDS: FERROUS SULFATE 325 MG TAB PO SCH (09:45)
[2021-05-28] MEDS: hydrALAZINE HCL 50 MG TAB PO SCH ×4 (09:45→20:30)
[2021-05-28] MEDS: APIXABAN 5 MG TAB PO SCH ×2 (09:45→20:34)
[2021-05-28] MEDS: ASPIRIN 81 MG PO SCH (09:46)
[2021-05-28] MEDS: CLOPIDOGREL 75 MG TAB PO SCH (09:46)
[2021-05-28] MEDS: ALPRAZolam 0.5 MG TAB PO PRN (11:06)
--- NOTE | 2021-05-28 11:39 | ECHOF ---
Referral Reason:Repeat evaluate LV Function MEASUREMENTS -------- HEIGHT: 157.5 cm WEIGHT: 103.0 kg BP: 126/86 IVSd: 1.2 cm (0.6 - 1.1) LVIDd: 4.3 cm (3.9 - 5.3) LVPWd: 1.4 cm (0.6 - 1.1) IVSs: 1.4 cm LVIDs: 3.6 cm LVPWs: 1.7 cm FINDINGS -------- Sinus rhythm. This was a technically difficult study with suboptimal views. The left ventricular size is normal. There is mild concentric left ventricular hypertrophy. Overa ll left ventricular systolic function is moderately impaired with, an EF between 35 - 40 %. Apical thrombus noted . [place] Hypokinesis. Improved LV FX There is a small, generalized pericardial effusion present. CONCLUSIONS -------- 1. The left ventricular size is normal. 2. There is mild concentric left ventricular hypertrophy. 3. Overall left ventricular systolic function is moderately impaired with, an EF between 35 - 40 %. 4. Apical thrombus noted . 5. [place] Hypokinesis. 6. There is a small, generalized pericardial effusion present. CREATIVE SERVICES DIRECTOR: Yee Davis RDCS
[2021-05-28 11:47] LABS: Glucose,Whole Blood 134 mg/dL (75-99)
--- NOTE | 2021-05-28 13:22 | P.PN ---
Subjective This is a 40-year-old female with a past medical history significant for coronary artery disease with previous stenting, hypertension, hyperlipidemia, congestive heart failure, and LV thrombus on anticoagulation with Eliquis, type 2 diabetes. Patient follows in the office with Dr. Davila. We have been asked to see the patient in consultation for "CHF, CAD, and elvated troponin". Patient presented to the emergency department with complaints of worsening lower extremity edema and weight gain. Patient states about 1-2 months ago she noted worsening bilateral lower extremity. Her Lasix was increased to 40mg BID. Her edema she states slightly improved and then worsened again about 2 weeks ago. Her Lasix was adjusted again to 80mg morning and 40mg at night for 1 week. Still no improvement. Metolazone 5mg was added. Then patient was taking 80mg BID for 4 days out of 7 out of the week. With no improvement she came to the hospital for further evaluation. He denies chest pain, shortness of breath, orthopnea or PND. She denies any palpitations, syncope or near syncope. DIAGNOSTICS -Echocardiogram obtained in September 2020 which revealed EF of 4045% apex hypokinesis, mild mitral regurgitation , moderate tricuspid regurgitation. -Cardiac catheterization history: 10/05/20 revealed patent stent in LAD and left circumflex, critical stenosis in the first diagonal branch and the fourth obtuse marginal branch without progression compared to 2019. November 2019 underwent cardiac catheterization in [place] patent stent to the LAD and circumflex April 2019 with stent placement to LAD 05/28/2021 Patient seen and examined at bedside, She states she feels almost back to baseline. She states she feels much better, no complaints. Her lower extremity edema has significantly improved. She states she is urinating frequently. No chest pain or shortness of breath. Her kidney function has worsened. Limited echocardiogram today revealed improvement in LV function at 3540%, apical thrombus to noted, apex hypokinesis, small generalized pericardial effusion. She's currently maintained on Eliquis 5 mg twice a day, amlodipine 10 mg daily, aspirin 81 mg daily, atorvastatin 80 mg nightly, carvedilol 25 mg twice a day, Plavix 75 mg daily, Zetia 10 mg daily, hydralazine 100 mg 3 times a day, losartan 100 mg daily, metolazone 5 mg daily, spironolactone 25 mg daily Labs: sodium 133, potassium 4.2, BUN 43, serum current 2.3 PHYSICAL EXAM: VITAL SIGNS: Reviewed. GENERAL: Well-developed in no acute distress. HEENT: Neck supple. No JVD LUNGS: Respirations even and unlabored. Lungs clear bilaterally. HEART: Regular rate and rhythm. S1 and S2 heard. Systolic ejection murmur ABDOMEN: Soft. Nondistended. Nontender. EXTREMITIES: Normal range of motion. No clubbing or cyanosis. Peripheral pulses intact. 2+ bilateral lower extremity edema SKIN: Right schuster with erythema noted, some clear discharge NEUROLOGIC: Awake and alert. Oriented x 3. ASSESSMENT: Elevated troponin, not consistent with acute coronary syndrome, no acute ischemia noted on EKG, likely related to heart failure Acute exacerbation of chronic heart failure with reduced ejection fraction Worsening cardiomyopathy, unclear if ischemic vs non-ischemic at this time Coronary artery disease with previous PCI to LAD and circumflex History of LV thrombus, on anticoagulation with Eliquis Hypertension Hyperlipidemia Morbid obesity Anxiety Depression Bipolar disorder PLAN: -Limited echocardiogram today revealed improvement in LV function at 3540% -Hold Lasix due to acute kidney injury -Consult Nephrology due to worsening kidney function. -Continue to hold amlodipine, may be contributing to patient's lower extremity edema -Monitor I/Os, daily weights renal function and electrolytes -Continue home cardiac medications -We do not recommend cardiac catheterization at this time, due to [place]. -Further recommendations based on clinic course Nurse practitioner note has been reviewed by physician. Signing provider agrees with the documented findings, assessment, and plan of care. Objective - Vital Signs Vital signs: Vital Signs Temp 97.5 F L 05/28/21 09:35 Pulse 74 05/28/21 11:04 Resp 18 05/28/21 11:04 BP 96/51 05/28/21 11:04 Pulse Ox 99 05/28/21 11:04 Intake & Output 05/27/21 05/28/21 05/28/21 18:59 06:59 18:59 Intake Total 600 240 Output Total 2825 800 350 Balance -5 800 -110 Weight 105 kg Intake: Oral 600 240 Output: Urine 2825 800 350 Other: Voiding Method Bedside Commode Bedside Commode Bedside Commode - Labs CBC & Chem 7: 05/25/21 04:52 05/28/21 06:34 Labs: Abnormal Lab Results - Last 24 Hours (Table) 0305/27/21 05/28/21 Range/Units 16:49 20:41 05:40 Sodium (137-145) mmol/L Chloride (98-107) mmol/L BUN (7-17) mg/dL Creatinine (0.52-1.04) mg/dL Glucose (74-99) mg/dL POC Glucose (mg/dL) 131 H 139 H 159 H (75-99) mg/dL 05/28/21 05/28/21 Range/Units 06:34 11:46 Sodium 133 L (137-145) mmol/L Chloride 97 L (98-107) mmol/L BUN 43 H (7-17) mg/dL Creatinine 2.38 H (0.52-1.04) mg/dL Glucose 135 H (74-99) mg/dL POC Glucose (mg/dL) 134 H (75-99) mg/dL
[2021-05-28 16:24] LABS: Glucose,Whole Blood 196 mg/dL (75-99)
[2021-05-28 20:03] LABS: Glucose,Whole Blood 195 mg/dL (75-99)
[2021-05-28] MEDS: ATORVASTATIN 80 MG TAB PO SCH (20:34)
[2021-05-28] MEDS: MONTELUKAST 10 MG TAB PO SCH (20:34)
[2021-05-28] MEDS: INSULIN DETEMIR (LEVEMIR) 100 UNIT/ML SYR SQ SCH (20:34)
[2021-05-29 06:12] LABS: Glucose,Whole Blood 151 mg/dL (75-99)
[2021-05-29] MEDS: carvediloL 12.5 MG TAB PO SCH ×2 (06:40→17:16)
[2021-05-29] MEDS: PANTOPRAZOLE 40 MG TABLET PO SCH ×2 (06:40→17:16)
[2021-05-29 07:56] LABS: Calcium 8.8 mg/dL (8.4-10.2); Potassium 4.3 mmol/L (3.5-5.1)
[2021-05-29] MEDS: SYMBICORT 160-4.5 MCG INHALER INHALATION SCH ×2 (08:32→20:41)
[2021-05-29] MEDS: FERROUS SULFATE 325 MG TAB PO SCH (08:42)
[2021-05-29] MEDS: CLOPIDOGREL 75 MG TAB PO SCH (08:42)
[2021-05-29] MEDS: SPIRONOLACTONE 25 MG TAB PO SCH (08:42)
[2021-05-29] MEDS: ASPIRIN 81 MG PO SCH (08:42)
[2021-05-29] MEDS: SERTRALINE 50 MG TAB PO SCH (08:42)
[2021-05-29] MEDS: hydrALAZINE HCL 50 MG TAB PO SCH ×2 (08:42→17:16)
[2021-05-29] MEDS: APIXABAN 5 MG TAB PO SCH ×2 (08:42→20:13)
[2021-05-29] MEDS: EZETIMIBE 10 MG TAB PO SCH (08:43)
[2021-05-29] MEDS: metOLazone 5 MG TAB PO SCH (08:44)
[2021-05-29 11:41] LABS: Glucose,Whole Blood 131 mg/dL (75-99)
--- NOTE | 2021-05-29 12:39 | P.NPCON ---
History of Present Illness - Reason for Consult acute renal failure - History of Present Illness Patient is a 40-year-old female with history of coronary artery disease, type 1 diabetes, hypertension, ischemic cardiomyopathy. Patient was admitted to the hospital with complaints of increased shortness of breath and lower extremity swelling for the past 1-2 months progressively getting worse. Patient denied any fevers or chills No cough nausea vomiting or abdominal pain. Currently maintained on IV Lasix. No prior history of kidney diseases. Serum creatinine was 0.9 on initial admission and increased to 2.38 yesterday. Today it down to 1.9 Blood pressure is not low Lasix was discontinued on 05/26/2021 Review of Systems As per HPI Past Medical History Past Medical History: Atrial Fibrillation, Asthma, Coronary Artery Disease (C AD), Cancer, Heart Failure, Diabetes Mellitus, GERD/Reflux, Hyperlipidemia, Hypertension, Myocardial Infarction (DC), Pulmonary Embolus (PE), Renal Disease Additional Past Medical History / Comment(s): IDDM type II, cardiomyopathy, multiple MIs, bilateral PEs, childhood leukemia with chemo and radiation, peptic ulcer, gallstones, nephrolithiasis/pt passed stone on her own, UTIs, anemia, RLS, pt states she has had covid twice, recent tooth infection tx with antibiotic. Last Myocardial Infarction Date:: 05/01/2019 History of Any Multi-Drug Resistant Organisms: None Reported Past Surgical History: Section, Heart Catheterization With Stent, Joint Replacement, Tonsillectomy, Tubal Ligation Additional Past Surgical History / Comment(s): Partial R knee replacement, PCI/stents, surgery for PE/radiation. 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 Date of Last Stent Placement:: 08/02/18 Smoking Status: Former smoker - Past Family History Father Family Medical History: Coronary Artery Disease (CAD), Hyperlipidemia, Hypertension Additional Family Medical History / Comment(s): pins in knee, heart stents x 4. Father is Mother Family Medical History: Coronary Artery Disease (CAD), Dementia, Diabetes Mellitus, Musculoskeletal Disorder, Renal Disease Additional Family Medical History / Comment(s): Parkinson's, stents in heart, neuropathy. Medications and Allergies Home Medications Medication Instructions Recorded Confirmed Type Ferrous Sulfate [Iron] 325 mg PO DAILY 07/11/18 05/24/21 History carvediloL 25 mg PO BID 07/11/18 05/24/21 History Atorvastatin [Lipitor] 80 mg PO HS #30 tab 12/06/18 05/24/21 Rx Clopidogrel [Plavix] 75 mg PO DAILY #30 tab 12/06/18 05/24/21 Rx Semaglutide [Ozempic] 0.5 mg SQ MO@2100 11/19/19 05/24/21 History Apixaban [Eliquis] 5 mg PO BID #180 tab 11/21/19 05/24/21 Rx ALPRAZolam [Xanax] 0.5 mg PO BID PRN 06/16/20 05/24/21 History Albuterol Sulfate [Ventolin HFA] 1 - 2 puff INHALATION RT-QID PRN 06/16/20 05/24/21 History Albuterol Nebulized [Ventolin 2.5 mg INHALATION RT-QID PRN 08/07/20 05/24/21 History Nebulized] Budesonide/Formoterol Fumarate 2 puff INHALATION RT-BID 08/07/20 05/24/21 History [Symbicort 160-4.5 Mcg Inhaler] Fluticasone Nasal [place] [Flonase 1 spray EA NOSTRIL DAILY PRN 08/07/20 05/24/21 History Nasal [place]] Insulin Glargine,Hum.rec.anlog 40 unit SQ HS 08/07/20 05/24/21 History [Lantus Solostar Pen] Montelukast [Singulair] 10 mg PO HS 08/07/20 05/24/21 History Multivitamins, Thera [Multivitamin 1 tab PO DAILY 08/07/20 05/24/21 History (formulary)] Nitroglycerin [Nitro-Dur 0.4MG/Hr 1 patch TRANSDERM Q48H PRN 08/07/20 05/24/21 History Patch] hydrALAZINE HCL [Apresoline] 100 mg PO TID #90 tab 08/09/20 05/24/21 Rx traZODone HCL [Desyrel] 50 mg PO HS PRN 10/05/20 05/24/21 History HYDROcodone/APAP 5-325MG [[place] 1 tab PO Q6HR PRN 3 Days #12 tab 12/28/20 05/24/21 Rx 5-325] Losartan Potassium [Cozaar] 100 mg PO DAILY 02/01/21 05/24/21 History rOPINIRole HCL [Requip] 0.25 mg PO HS 02/01/21 05/24/21 History Ezetimibe [Zetia] 10 mg PO DAILY #30 tab 02/02/21 05/24/21 Rx Pantoprazole [Protonix] 40 mg PO BID #60 tab 02/02/21 05/24/21 Rx Potassium Chloride ER [K-Dur 20] 20 meq PO DAILY #30 tablet 02/02/21 05/24/21 Rx Sertraline [Zoloft] 50 mg PO DAILY #30 tab 02/02/21 05/24/21 Rx amLODIPine [Norvasc] 10 mg PO DAILY #30 tab 02/02/21 05/24/21 Rx Aspirin EC [Ecotrin Low Dose] 81 mg PO DAILY 03/06/21 05/24/21 History Spironolactone [Aldactone] 25 mg PO DAILY 03/06/21 05/24/21 History metOLazone [Zaroxolyn] 5 mg PO DAILY 03/06/21 05/24/21 History Furosemide [Lasix] 80 mg PO BID PRN #60 tab 03/08/21 05/24/21 Rx Nitroglycerin Sl Tabs [Nitrostat] 0.4 mg SUBLINGUAL Q5M PRN 05/04/21 05/24/21 History Allergies Allergy/AdvReac Type Severity Reaction Status Date / Time cephalexin [From Keflex] Allergy Rash/Hives Verified 05/24/21 20:21 codeine Allergy Rash/Hives Verified 05/24/21 20:21 Iodine and Iodide Containing Allergy Rash/Hives Verified 05/24/21 20:21 Produc Penicillins Allergy Rash/Hives Verified 05/24/21 20:21 tramadol Allergy Rash/Hives Verified 05/24/21 20:21 Physical Exam Vitals: Vital Signs Temp Pulse Resp BP Pulse Ox 05/29/21 11:25 87 18 122/79 95 05/29/21 08:30 98.6 F 83 16 123/72 98 05/29/21 04:00 98.1 F 78 20 126/68 95 05/29/21 02:00 88 18 05/29/21 00:00 98.3 F 88 18 132/70 94 L 05/28/21 20:00 97.3 F L 80 18 89/53 94 L 05/28/21 17:26 97.4 F L 80 18 123/83 96 05/28/21 14:00 74 18 Intake and Output 05/28/21 05/29/21 05/29/21 22:59 06:59 14:59 Intake Total 240 118 Output Total 400 Balance -160 118 Intake: Oral 240 118 Output: Urine 400 Other: Voiding Method Bedside Commode Bedside Commode Bedside Commode Patient is awake comfortable, not in any acute distress Examination of the heart S1 and S2 Examination lungs bilateral breath sounds are heard Abdomen is soft nontender Examination of lower extremities shows 3+ edema bilaterally, 1+ edema upper extremities as well Face is also edematous 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 Acute kidney injury, cardiorenal and associated low blood pressure with systolic 90-82 mmHg in the setting of use of Cozaar. Currently improving. Cozaar discontinued now. 2. Acute systolic CHF on top of chronic 3. Severe ischemic cardiomyopathy and history of LV thrombus 4. Coronary artery disease with significant history of DC 5. Volume overload 6. Possible CK D with UA showing 1+ protein. Previous creatinine 0.9 Plan: Discuss with cardiology to add dobutamine along with diuretics to help improve the edema and renal function. Resume low-dose KALPANA inhibitor's tomorrow. Agree with discontinuation of Norvasc. High-dose hydralazine was also potentiate significant fluid retention. Thank you for the consultation, we'll continue to follow the patient with you during her hospitalization
[2021-05-29] MEDS: ONDANSETRON 4 MG/2 ML VIAL IVP PRN (15:35)
[2021-05-29 16:38] LABS: Glucose,Whole Blood 106 mg/dL (75-99)
--- NOTE | 2021-05-29 18:59 | PN ---
PROGRESS NOTE DATE OF SERVICE: 05/29/2021 CHIEF COMPLAINT: Congestive heart failure and cardiomyopathy. HISTORY OF PRESENT ILLNESS: This lady is stable and she is feeling better. She has diuresed significantly since she has been in and her breathing is greatly improved. Cardiology is planning further evaluation early in the week. They were planning a cardiac cath, but her renal function is such that this is not advised at this time. She may be undergoing placement of defibrillator/pacemaker. PHYSICAL EXAMINATION: Chest is fairly clear. Breath sounds are much better. Cardiac exam is unremarkable with an S4. Abdomen is protuberant and soft. Extremities are less edematous. IMPRESSION: Cardiomyopathy with chronic congestive heart failure and pulmonary hypertension. PLAN: Continue diuresis and await further management by Cardiology. MMODL / IJN: [id number] /
--- NOTE | 2021-05-29 19:07 | PN ---
PROGRESS NOTE DATE OF SERVICE: 05/28/2021 CHIEF COMPLAINT: Congestive heart failure. HISTORY OF PRESENT ILLNESS: This lady is doing better. Breathing is improved. She is diuresing. Cardiology was considering a cardiac cath, but in view of her elevated renal function this has been postponed. She is being evaluated for possible ICD. There is also discussion as to whether or not she should be sent back to [place]. PHYSICAL EXAMINATION: She feels better. She is less short of breath. She is much less puffy. Exam demonstrates poor breath sounds but they are more clear. Cardiac exam is unchanged. She has less peripheral edema. IMPRESSION: 1. Cardiomyopathy. 2. Coronary artery disease. 3. Acute on chronic congestive heart failure. PLAN: Await further guidelines from Cardiology. MMODL / IJN: [id number] /
--- NOTE | 2021-05-29 19:34 | PN ---
PROGRESS NOTE DATE OF SERVICE: 05/26/2021 CHIEF COMPLAINT: Shortness of breath and congestive heart failure. HISTORY OF PRESENT ILLNESS: This lady has diuresed off quite a bit of fluids since coming in. She feels much better. She is much less short of breath. It sounds as though cardiology is considering a cardiac cath and possibly a pacemaker/ICD device. PHYSICAL EXAMINATION: Breath sounds are still diminished with rales. Cardiac exam demonstrates her S4 and a tachycardia. Abdomen is protuberant and legs are slightly less edematous. IMPRESSION: 1. Acute congestive heart failure. 2. Chronic systolic heart failure. 3. Prerenal azotemia. PLAN: Continue with diuresis and await further recommendations from Cardiology. MMODL / IJN: [id number] /
--- NOTE | 2021-05-29 19:41 | PN ---
PROGRESS NOTE DATE OF SERVICE: 05/27/2021 CHIEF COMPLAINT: Congestive heart failure. HISTORY OF PRESENT ILLNESS: This lady is doing a little bit better. She is a little bit less short of breath as she diureses. Cardiology has decided against cardiac cath because of her renal function. Further management is being considered. She might be transferred to [place]. PHYSICAL EXAMINATION: She does feel better. She is less edematous. Breath sounds are improved with fewer rales. Cardiac exam is unchanged and the abdomen is protuberant, soft and nontender. Extremities are less edematous. IMPRESSION: 1. Acute on chronic systolic congestive heart failure. 2. Cardiomyopathy. 3. Renal failure. PLAN: Await further recommendations from Cardiology. MMODL / IJN: [id number] /
[2021-05-29 20:13] LABS: Glucose,Whole Blood 176 mg/dL (75-99)
[2021-05-29] MEDS: MONTELUKAST 10 MG TAB PO SCH (20:13)
[2021-05-29] MEDS: ATORVASTATIN 80 MG TAB PO SCH (20:13)
[2021-05-29] MEDS: INSULIN DETEMIR (LEVEMIR) 100 UNIT/ML SYR SQ SCH (20:18)
[2021-05-30] MEDS: hydrALAZINE HCL 50 MG TAB PO SCH ×4 (05:12→21:27)
[2021-05-30 06:17] LABS: Glucose,Whole Blood 114 mg/dL (75-99)
[2021-05-30] MEDS: carvediloL 12.5 MG TAB PO SCH ×2 (06:43→16:36)
[2021-05-30] MEDS: PANTOPRAZOLE 40 MG TABLET PO SCH ×2 (06:43→16:36)
[2021-05-30] MEDS: ONDANSETRON 4 MG/2 ML VIAL IVP PRN ×3 (06:50→18:48)
[2021-05-30] MEDS: SYMBICORT 160-4.5 MCG INHALER INHALATION SCH ×2 (07:25→19:27)
[2021-05-30] MEDS: APIXABAN 5 MG TAB PO SCH ×2 (09:35→21:27)
[2021-05-30] MEDS: FERROUS SULFATE 325 MG TAB PO SCH (09:35)
[2021-05-30] MEDS: EZETIMIBE 10 MG TAB PO SCH (09:35)
[2021-05-30] MEDS: CLOPIDOGREL 75 MG TAB PO SCH (09:35)
[2021-05-30] MEDS: SPIRONOLACTONE 25 MG TAB PO SCH (09:35)
[2021-05-30] MEDS: ASPIRIN 81 MG PO SCH (09:35)
[2021-05-30] MEDS: SERTRALINE 50 MG TAB PO SCH (09:35)
[2021-05-30] MEDS: metOLazone 5 MG TAB PO SCH (09:35)
[2021-05-30 11:47] LABS: Glucose,Whole Blood 130 mg/dL (75-99)
--- NOTE | 2021-05-30 13:34 | PN ---
PROGRESS NOTE 40-year-old lady who is admitted to hospital with acute exacerbation of chronic diastolic heart failure developed renal failure following Lasix, is gradually getting better. On exam afebrile. Vital signs are stable. Chest exam reveals good air entry bilaterally. Heart exam reveals first and second heart sounds. No gallop. Examination of extremities reveals mild bilateral leg edema. LABS: Labs show that the potassium is 4.3, BUN is 40, creatinine is 1.97. ASSESSMENT: 1. Congestive heart failure. 2. Renal failure. 3. Cardiomyopathy. PLAN: I will continue current medications. Hopefully home tomorrow. MMODL / IJN: [id number] /
--- NOTE | 2021-05-30 14:49 | P.PN ---
Subjective Patient is a 40-year-old female with history of coronary artery disease type 1 diabetes hypertension and severe ischemic cardiomyopathy. Patient was admitted to the hospital with complaints of increased shortness of breath and lower extremity swelling going on for about 1-2 months prior to admission, progressively getting worse. Patient had been diuresed during this admission. Serum creatinine increased from 0.9 on initial admission to 2.38 and then subsequently down to 1.9 yesterday. Blood pressure was not low Lasix currently remains discontinued as of 05/26/2021 No significant complaints today. Urine output is not accurately charted. No labs from today Objective - Vital Signs Vital signs: Vital Signs Temp 98.4 F 05/30/21 09:30 Pulse 87 05/30/21 09:30 Resp 18 05/30/21 09:30 BP 143/83 05/30/21 09:30 Pulse Ox 93 L 05/30/21 09:30 Intake & Output 05/29/21 05/30/21 05/30/21 17:59 06:59 18:59 Intake Total 0 Output Total Balance 0 Weight Intake: Oral 0 Output: Urine Other: Voiding Method Bedside Commode - Exam Awake comfortable. Not in any acute distress. 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 Acute kidney injury, cardiorenal and associated low blood pressure with systolic 90-82 mmHg in the setting of use of Cozaar. Currently improving. Cozaar discontinued now. 2. Acute systolic CHF on top of chronic 3. Severe ischemic cardiomyopathy and history of LV thrombus 4. Coronary artery disease with significant history of MA 5. Volume overload 6. Possible CK D with UA showing 1+ protein. Previous creatinine 0.9 Plan: Consider dobutamine as ejection fraction was 35-40% Resume diuretics Can likely resume Ryan inhibitors tomorrow depending on the labs Repeat labs
[2021-05-30] MEDS: FUROSEMIDE 10 MG/ML 4 ML VIAL IV SCH (16:36)
[2021-05-30 16:56] LABS: Glucose,Whole Blood 105 mg/dL (75-99)
[2021-05-30 20:06] LABS: Glucose,Whole Blood 164 mg/dL (75-99)
[2021-05-30] MEDS: ATORVASTATIN 80 MG TAB PO SCH (21:27)
[2021-05-30] MEDS: INSULIN DETEMIR (LEVEMIR) 100 UNIT/ML SYR SQ SCH (21:27)
[2021-05-30] MEDS: MONTELUKAST 10 MG TAB PO SCH (21:27)
[2021-05-30] MEDS: HYDROcodone/APAP 5-325MG 1 EACH TAB PO PRN (23:54)
[2021-05-31 06:15] LABS: Glucose,Whole Blood 98 mg/dL (75-99)
[2021-05-31] MEDS: carvediloL 12.5 MG TAB PO SCH ×2 (06:52→16:31)
[2021-05-31] MEDS: PANTOPRAZOLE 40 MG TABLET PO SCH ×2 (06:52→16:31)
[2021-05-31 07:45] LABS: Calcium 9.3 mg/dL (8.4-10.2); Magnesium 1.6 mg/dL (1.6-2.3); Potassium 3.9 mmol/L (3.5-5.1)
[2021-05-31] MEDS: APIXABAN 5 MG TAB PO SCH ×2 (08:35→20:33)
[2021-05-31] MEDS: metOLazone 5 MG TAB PO SCH (08:35)
[2021-05-31] MEDS: SPIRONOLACTONE 25 MG TAB PO SCH (08:35)
[2021-05-31] MEDS: ASPIRIN 81 MG PO SCH (08:35)
[2021-05-31] MEDS: EZETIMIBE 10 MG TAB PO SCH (08:35)
[2021-05-31] MEDS: SERTRALINE 50 MG TAB PO SCH (08:35)
[2021-05-31] MEDS: FERROUS SULFATE 325 MG TAB PO SCH (08:35)
[2021-05-31] MEDS: CLOPIDOGREL 75 MG TAB PO SCH (08:35)
[2021-05-31] MEDS: FUROSEMIDE 10 MG/ML 4 ML VIAL IV SCH ×2 (08:36→15:30)
[2021-05-31] MEDS: hydrALAZINE HCL 50 MG TAB PO SCH ×3 (08:36→20:34)
--- NOTE | 2021-05-31 10:00 | US ---
EXAMINATION TYPE: US kidneys/renal and bladder DATE OF EXAM: 05/31/2021 COMPARISON: CT 05/04/2021 CLINICAL HISTORY: 40 year-old female renal failure. TECHNIQUE: Multiple sonographic images of the kidneys and bladder are obtained. Inspector [employer] notes: Exam done portable FINDINGS: EXAM MEASUREMENTS: Right Kidney: 12.0 x 4.7 x 4.8 cm Left Kidney: 11.0 x 5.3 x 5.5 cm Right Kidney: No hydronephrosis or masses seen Left Kidney: No hydronephrosis or masses seen Bladder: Partially distended bladder shows no gross abnormality. IMPRESSION: No hydronephrosis.
--- NOTE | 2021-05-31 11:33 | P.PN ---
Subjective Progress Note Date: 05/31/21 Principal diagnosis: CAD/cardiomyopathy The patient is a pleasant 40-year-old female patient with CAD and prior revascularization as well as cardiomyopathy as well as hypertension and dyslipidemia and chronic kidney disease and also history of LV thrombus was admitted to the hospital with progressive dyspnea and bilateral lower Is edema. She was seen this morning. She stated that the shortness of breath is better. On examination she does have diminished breathing sounds bilaterally. Also she does have bilateral lower At his edema which is a still noted. She reports no pain in the chest. She continues to be on Lasix IV. Nephrology is on the case as well. Losartan is on hold probably because of the renal failure. She is on high-dose beta kirsty. The pressure continues to be not under ideal control at this point. Hopefully the pressure would get better once we start the patient back on ARB with losartan. Objective - Vital Signs Vital signs: Vital Signs Temp 98.1 F 05/31/21 08:25 Pulse 86 05/31/21 08:25 Resp 18 05/31/21 08:25 BP 138/82 05/31/21 08:25 Pulse Ox 95 05/31/21 08:25 Intake & Output 05/30/21 05/31/21 05/31/21 18:59 06:59 18:59 Intake Total 240 240 Output Total 600 275 Balance 240 -600 -35 Intake: Oral 240 240 Output: Urine 600 275 Other: Voiding Method Bedside Commode Toilet - Constitutional General appearance: Present: no acute distress - Respiratory Respiratory: bilateral: diminished - Cardiovascular Rhythm: regular Heart sounds: normal: S1, S2 - Labs CBC & Chem 7: 05/25/21 04:52 05/31/21 07:07 Labs: Abnormal Lab Results - Last 24 Hours (Table) 05/30/21 05/30/21 05/30/21 Range/Units 11:46 16:49 20:01 Sodium (137-145) mmol/L Carbon Dioxide (22-30) mmol/L BUN (7-17) mg/dL Creatinine (0.52-1.04) mg/dL POC Glucose (mg/dL) 130 H 105 H 164 H (75-99) mg/dL 05/31/21 Range/Units 07:07 Sodium 135 L (137-145) mmol/L Carbon Dioxide 33 H (22-30) mmol/L BUN 26 H (7-17) mg/dL Creatinine 1.44 H (0.52-1.04) mg/dL POC Glucose (mg/dL) (75-99) mg/dL Assessment and Plan Assessment: Assessment #1 CAD and prior stenting #2 cardiomyopathy with EF between 35-40% #3 hypertension #4 dyslipidemia #5 history of LV thrombus Plan #1 continue the current medical regimen #2 continue IV Lasix for additional 24 hours #3 continue monitor the kidney function and electrolytes #4 restart the patient on ARB with losartan once that is okay from the nephrology standpoint of view
[2021-05-31] MEDS: SYMBICORT 160-4.5 MCG INHALER INHALATION SCH ×2 (11:40→20:32)
[2021-05-31 11:49] LABS: Glucose,Whole Blood 98 mg/dL (75-99)
--- NOTE | 2021-05-31 12:03 | P.PN ---
Subjective Patient is seen in follow-up for acute kidney injury. Renal function improving. Denies chest pain or shortness of breath. Edema improving. Feels nauseous. Did vomit last night. Vital signs are stable. General: Awake and alert. HEENT: Head exam is unremarkable. LUNGS: Breath sounds decreased. HEART: Rate and Rhythm are regular. ABDOMEN: Soft, no distention. EXTREMITITES: 1+ edema. Objective - Vital Signs Vital signs: Vital Signs Temp 98.1 F 05/31/21 08:25 Pulse 86 05/31/21 08:25 Resp 18 05/31/21 08:25 BP 138/82 05/31/21 08:25 Pulse Ox 95 05/31/21 08:25 Intake & Output 05/30/21 05/31/21 05/31/21 18:59 06:59 18:59 Intake Total 240 240 Output Total 600 275 Balance 240 -600 -35 Intake: Oral 240 240 Output: Urine 600 275 Other: Voiding Method Bedside Commode Toilet - Labs CBC & Chem 7: 05/25/21 04:52 05/31/21 07:07 Labs: Abnormal Lab Results - Last 24 Hours (Table) 05/30/21 05/30/21 05/31/21 Range/Units 16:49 20:01 07:07 Sodium 135 L (137-145) mmol/L Carbon Dioxide 33 H (22-30) mmol/L BUN 26 H (7-17) mg/dL Creatinine 1.44 H (0.52-1.04) mg/dL POC Glucose (mg/dL) 105 H 164 H (75-99) mg/dL Assessment and Plan Plan: Assessment: 1. Acute kidney injury mostly prerenal secondary to cardiorenal syndrome and hypotension. Improving. Creatinine 1.44 today. No evidence of hydronephrosis and kidney ultrasound. 2. Acute on chronic systolic CHF with ejection fraction of 35-40%. 3. Volume overload. 4. Diabetes mellitus. 5. History of coronary artery disease. 6. Benign hypertension. 7. UA shows 1+ proteinuria. Likely from underlying diabetic kidney disease. Further workup outpatient. 8. Hypomagnesemia from diuresis. Plan: Maintain IV Lasix. Change to oral diuretics likely tomorrow. Add low-dose losartan. Discussed with cardiology. Avoid nephrotoxins. Replace magnesium.
[2021-05-31] MEDS: LOSARTAN 25 MG TAB PO SCH (12:20)
[2021-05-31] MEDS: MAGNESIUM SULFATE-D5W PMX 1 GM in DEXTROSE/WATER 1 100ML.BAG IVPB SCH ×2 (12:20→13:52)
[2021-05-31 16:24] LABS: Glucose,Whole Blood 262 mg/dL (75-99)
[2021-05-31 20:20] LABS: Glucose,Whole Blood 211 mg/dL (75-99)
[2021-05-31] MEDS: ATORVASTATIN 80 MG TAB PO SCH (20:33)
[2021-05-31] MEDS: MONTELUKAST 10 MG TAB PO SCH (20:33)
[2021-05-31] MEDS: INSULIN DETEMIR (LEVEMIR) 100 UNIT/ML SYR SQ SCH (20:34)
--- NOTE | 2021-05-31 20:54 | PN ---
PROGRESS NOTE DATE OF SERVICE: 05/30/2021 CHIEF COMPLAINT: Congestive heart failure and coronary artery disease. HISTORY OF PRESENT ILLNESS: This lady is stable. She is continuing to diurese and lose weight and breathe more easily. She is not to have cardiac cath because of her renal function. There is a question as to whether not she will have an ICD placed and whether it will be here or in [place]. REVIEW OF SYSTEMS: She is feeling fairly good. She has had no significant chest pain, palpitations, etc. PHYSICAL EXAMINATION: Face is less edematous. Chest demonstrates better breath sounds with no rales. Cardiac exam is unchanged. Abdomen is soft, nontender. Extremities are less edematous. IMPRESSION: 1. Acute congestive heart failure. 2. Chronic heart failure with reduced ejection fraction. 3. Diabetes mellitus. 4. Chronic kidney disease. PLAN: Continue with diuresis and await further recommendations from Cardiology. MMODL / IJN: [id number] /
[2021-05-31] MEDS ORDERED: NON FORMULARY DRUG (Semaglutide [Ozempic] 0.25 MG/0.2 ML Pen.Injctr) SQ SCH (21:00)
--- NOTE | 2021-05-31 21:09 | PN ---
PROGRESS NOTE CHIEF COMPLAINT: Shortness of breath. HISTORY OF PRESENT ILLNESS: This lady improves every day with further diuresis. We are waiting for any further plans from Cardiology. PHYSICAL EXAMINATION: Chest is clearing. She has basically no rales now. Cardiac exam is unchanged. The abdomen is soft and protuberant. Extremities are less edematous. IMPRESSION: 1. Acute congestive heart failure. 2. Chronic congestive heart failure. 3. Atherosclerotic cardiomyopathy. 4. Renal failure. 5. Diabetes. PLAN: Await any further recommendations from Cardiology. MMODL / IJN: [id number] /
[2021-06-01] MEDS: ONDANSETRON 4 MG/2 ML VIAL IVP PRN (01:41)
[2021-06-01 05:48] VITALS: RESP 16
[2021-06-01 06:36] LABS: Glucose,Whole Blood 84 mg/dL (75-99)
[2021-06-01] MEDS: carvediloL 12.5 MG TAB PO SCH (06:52)
[2021-06-01] MEDS: PANTOPRAZOLE 40 MG TABLET PO SCH (06:52)
[2021-06-01] MEDS: SYMBICORT 160-4.5 MCG INHALER INHALATION SCH (07:15)
[2021-06-01] MEDS: FUROSEMIDE 10 MG/ML 4 ML VIAL IV SCH (09:01)
[2021-06-01] MEDS: hydrALAZINE HCL 50 MG TAB PO SCH (09:01)
[2021-06-01] MEDS: LOSARTAN 25 MG TAB PO SCH (09:01)
[2021-06-01] MEDS: ASPIRIN 81 MG PO SCH (09:01)
[2021-06-01] MEDS: APIXABAN 5 MG TAB PO SCH (09:01)
[2021-06-01] MEDS: EZETIMIBE 10 MG TAB PO SCH (09:01)
[2021-06-01] MEDS: FERROUS SULFATE 325 MG TAB PO SCH (09:01)
[2021-06-01] MEDS: SERTRALINE 50 MG TAB PO SCH (09:01)
[2021-06-01] MEDS: metOLazone 5 MG TAB PO SCH (09:01)
[2021-06-01] MEDS: SPIRONOLACTONE 25 MG TAB PO SCH (09:01)
[2021-06-01] MEDS: CLOPIDOGREL 75 MG TAB PO SCH (09:01)
[2021-06-01 10:03] LABS: Calcium 9.3 mg/dL (8.4-10.2); Magnesium 1.7 mg/dL (1.6-2.3); Potassium 4.2 mmol/L (3.5-5.1)
[2021-06-01 10:12] VITALS: BP 127/77; PULSE 85; TEMP 98
--- NOTE | 2021-06-01 10:28 | P.PN ---
Subjective Patient is seen in follow-up for acute kidney injury. Renal function a little worse. Losartan was started 05/31/2021. Denies chest pain or shortness of breath. Edema improving. No vomiting today. Admits to good urine output. Vital signs are stable. General: Awake and alert. HEENT: Head exam is unremarkable. LUNGS: Breath sounds decreased. HEART: Rate and Rhythm are regular. ABDOMEN: Soft, no distention. EXTREMITITES: Trace edema. Objective - Vital Signs Vital signs: Vital Signs Temp 98 F 06/01/21 07:45 Pulse 85 06/01/21 07:45 Resp 16 06/01/21 07:45 BP 127/77 06/01/21 07:45 Pulse Ox 95 06/01/21 07:45 Intake & Output 05/31/21 06/01/21 06/01/21 18:59 06:59 18:59 Intake Total 598 Output Total 275 1200 Balance 323 -1200 Weight 98.5 kg Intake: Oral 598 Output: Urine 275 1200 Other: Voiding Method Toilet # Voids 1 - Labs CBC & Chem 7: 05/25/21 04:52 06/01/21 08:55 Labs: Abnormal Lab Results - Last 24 Hours (Table) 05/31/21 05/31/21 06/01/21 Range/Units 16:22 20:19 08:55 Sodium 133 L (137-145) mmol/L Chloride 97 L (98-107) mmol/L BUN 26 H (7-17) mg/dL Creatinine 1.65 H (0.52-1.04) mg/dL Glucose 205 H (74-99) mg/dL POC Glucose (mg/dL) 262 H 211 H (75-99) mg/dL Assessment and Plan Plan: Assessment: 1. Acute kidney injury mostly prerenal secondary to cardiorenal syndrome and hypotension. Improved. Creatinine 1.65 today. Renal function slightly worse compared to yesterday as losartan was added and also from diuresis. No evidence of hydronephrosis and kidney ultrasound. 2. Acute on chronic systolic CHF with ejection fraction of 35-40%. 3. Volume overload. Improved with diuresis. 4. Diabetes mellitus. 5. History of coronary artery disease. 6. Benign hypertension. Controlled. 7. UA shows 1+ proteinuria. Likely from underlying diabetic kidney disease. Further workup outpatient. 8. Hypomagnesemia from diuresis. Replace. Plan: Stop IV Lasix. Add torsemide 20 mg once daily. Stop metolazone. Avoid nephrotoxins. Add oral magnesium oxide. Repeat BMP and magnesium level 2-3 days postdischarge. Advised patient to maintain 40 ounce fluid restriction per day and low-salt diet. She was also advised to monitor her weight closely at home and to call physician if gains or than 3 pounds in 1 week duration or edema worsens. Follow-up outpatient in 1 week.
[2021-06-01] MEDS ORDERED: MAGNESIUM OXIDE 400 MG TAB PO SCH (10:30)
[2021-06-01 11:41] LABS: Glucose,Whole Blood 134 mg/dL (75-99)
--- NOTE | 2021-06-01 12:03 | DS ---
DISCHARGE SUMMARY CHIEF COMPLAINT: Shortness of breath. HISTORY OF PRESENT ILLNESS AND PHYSICAL EXAMINATION: Details of this lady's history and physical can be found in the initial workup. LABORATORY STUDIES: While she was in the hospital she had laboratory studies, details of which can be found in the laboratory section of her chart. COURSE IN THE HOSPITAL: After admission she was placed on bed rest and started on intravenous fluids and IV Lasix. She was diuresed. Breathing improved. Weight went down about 25 pounds. She was seen and followed by Cardiology. Initially it was felt that she might undergo cardiac cath, but her renal function was elevated and this was postponed. It was also felt that she may be a candidate for an ICD, but it was undecided as to whether or not this should be done here or in [place]. She was seen by Nephrology while she was in the hospital. She was doing well and it was felt that she could go home on June 01. She will go home on light activity about the house, [id number] diet. She will be contacted in several days to follow her weight and clinical features consistent with her congestive heart failure, cardiorenal syndrome, etc. FINAL DIAGNOSIS: 1. Acute congestive heart failure. 2. Chronic systolic and diastolic heart failure. 3. Cardiomyopathy. 4. Coronary artery disease. 5. Cardiorenal syndrome. 6. Type 2 diabetes mellitus, insulin-dependent. OPERATIONS: None. CONSULTATIONS: 1. Nephrology. 2. Cardiology. She is improved. MMELIZABETHL / SHERIFN: [id number] /
[2021-06-01 13:37] VITALS: BMI 39.6
--- NOTE | 2021-06-01 18:30 | P.PN ---
Subjective This is a 40-year-old female with a past medical history significant for coronary artery disease with previous stenting, hypertension, hyperlipidemia, congestive heart failure, and LV thrombus on anticoagulation with Eliquis, type 2 diabetes. Patient follows in the office with Dr. Davila. We have been asked to see the patient in consultation for "CHF, CAD, and elvated troponin". Patient presented to the emergency department with complaints of worsening lower extremity edema and weight gain. Patient states about 1-2 months ago she noted worsening bilateral lower extremity. Her Lasix was increased to 40mg BID. Her edema she states slightly improved and then worsened again about 2 weeks ago. Her Lasix was adjusted again to 80mg morning and 40mg at night for 1 week. Still no improvement. Metolazone 5mg was added. Then patient was taking 80mg BID for 4 days out of 7 out of the week. With no improvement she came to the hospital for further evaluation. He denies chest pain, shortness of breath, orthopnea or PND. She denies any palpitations, syncope or near syncope. DIAGNOSTICS -Echocardiogram obtained in September 2020 which revealed EF of 4045% apex hypokinesis, mild mitral regurgitation , moderate tricuspid regurgitation. -Cardiac catheterization history: 10/05/20 revealed patent stent in LAD and left circumflex, critical stenosis in the first diagonal branch and the fourth obtuse marginal branch without progression compared to 2019. November 2019 underwent cardiac catheterization in [place] patent stent to the LAD and circumflex April 2019 with stent placement to LAD 06/01/2021 Patient seen and examined at bedside, Patient is feeling well. No Shortness of breath or chest pain. She states she feels much better, no complaints. Her lower extremity edema has significantly improved. She states she is urinating frequently. Limited echocardiogram revealed improvement in LV function at 3540%, apical thrombus to noted, apex hypokinesis, small generalized pericardial effusion. She's currently maintained on Eliquis 5 mg twice a day, amlodipine 10 mg daily, aspirin 81 mg daily, atorvastatin 80 mg nightly, carvedilol 25 mg twice a day, Plavix 75 mg daily, Zetia 10 mg daily, hydralazine 100 mg 3 times a day, losartan 100 mg daily, Torsemide 20mg daily per nephrology, Metolazone disconti nued and on spironolactone 25 mg daily Labs: sodium 133, potassium 4.2, BUN 26, serum creatinine 1.65 Mag 1.7. PHYSICAL EXAM: VITAL SIGNS: Reviewed. GENERAL: Well-developed in no acute distress. HEENT: Neck supple. No JVD LUNGS: Respirations even and unlabored. Lungs clear bilaterally. HEART: Regular rate and rhythm. S1 and S2 heard. Systolic ejection murmur ABDOMEN: Soft. Nondistended. Nontender. EXTREMITIES: Normal range of motion. No clubbing or cyanosis. Peripheral pulses intact. 2+ bilateral lower extremity edema SKIN: Right schuster with erythema noted, some clear discharge NEUROLOGIC: Awake and alert. Oriented x 3. ASSESSMENT: Elevated troponin, not consistent with acute coronary syndrome, no acute ischemia noted on EKG, likely related to heart failure Acute exacerbation of chronic heart failure with reduced ejection fraction Worsening cardiomyopathy, unclear if ischemic vs non-ischemic at this time, EF improved to 35-40% Coronary artery disease with previous PCI to LAD and circumflex History of LV thrombus, on anticoagulation with Eliquis Hypertension Hyperlipidemia Morbid obesity Anxiety Depression Bipolar disorder PLAN: -Limited echocardiogram revealed improvement in LV function at 3540% -Nephrology following, patient transitioned to Torsemide -Continue to hold amlodipine, may be contributing to patient's lower extremity edema -Continue home cardiac medications -We do not recommend cardiac catheterization at this time, due to [place] -From a cardiology perspective, patient is stable to be discharged home. Follow up with Dr. Davila in 1-2 weeks. Nurse practitioner note has been reviewed by physician. Signing provider agrees with the documented findings, assessment, and plan of care. Objective - Vital Signs Vital signs: Vital Signs Temp 98 F 06/01/21 07:45 Pulse 85 06/01/21 07:45 Resp 16 06/01/21 07:45 BP 127/77 06/01/21 07:45 Pulse Ox 95 06/01/21 07:45 Intake & Output 05/31/21 06/01/21 06/01/21 18:59 06:59 18:59 Intake Total 598 Output Total 275 1200 Balance 323 -1200 Weight 98.5 kg 98.5 kg Intake: Oral 598 Output: Urine 275 1200 Other: Voiding Method Toilet # Voids 1 - Labs CBC & Chem 7: 05/25/21 04:52 06/01/21 08:55 Labs: Abnormal Lab Results - Last 24 Hours (Table) 05/31/21 06/01/21 06/01/21 Range/Units 20:19 08:55 11:39 Sodium 133 L (137-145) mmol/L Chloride 97 L (98-107) mmol/L BUN 26 H (7-17) mg/dL Creatinine 1.65 H (0.52-1.04) mg/dL Glucose 205 H (74-99) mg/dL POC Glucose (mg/dL) 211 H 134 H (75-99) mg/dL
[2021-06-02] MEDS ORDERED: TORSEMIDE 20 MG TAB PO SCH (09:00)
== END 2021-06-01 13:26 | disposition home health service (06) | DRG 291 ==
LOC: EC 14:46 → 3SCARD 05-25 01:37
PROVIDERS: ADMIT Family Medicine; ATTEND Family Medicine
DX: I13.0 Hypertensive heart and chronic kidney disease with heart failure and stage 1 through stage 4 chronic kidney disease, or unspecified chronic kidney disease (principal); I50.43 Acute on chronic combined systolic (congestive) and diastolic (congestive) heart failure; I31.3 Pericardial effusion (noninflammatory); N17.9 Acute kidney failure, unspecified; I25.5 Ischemic cardiomyopathy; I25.2 Old myocardial infarction; G25.81 Restless legs syndrome; F41.9 Anxiety disorder, unspecified; I25.10 Atherosclerotic heart disease of native coronary artery without angina pectoris; I27.20 Pulmonary hypertension, unspecified; I48.91 Unspecified atrial fibrillation; I51.3 Intracardiac thrombosis, not elsewhere classified; J45.909 Unspecified asthma, uncomplicated; F20.9 Schizophrenia, unspecified; F31.9 Bipolar disorder, unspecified; E83.42 Hypomagnesemia; T50.2X5A Adverse effect of carbonic-anhydrase inhibitors, benzothiadiazides and other diuretics, initial encounter; I95.9 Hypotension, unspecified; E66.01 Morbid (severe) obesity due to excess calories; E78.5 Hyperlipidemia, unspecified; E10.22 Type 1 diabetes mellitus with diabetic chronic kidney disease; N18.9 Chronic kidney disease, unspecified; Z68.39 Body mass index [BMI] 39.0-39.9, adult; Z79.01 Long term (current) use of anticoagulants; Z79.02 Long term (current) use of antithrombotics/antiplatelets; Z79.4 Long term (current) use of insulin; Z79.51 Long term (current) use of inhaled steroids; Z79.82 Long term (current) use of aspirin; Z79.899 Other long term (current) drug therapy; Z82.0 Family history of epilepsy and other diseases of the nervous system; Z82.49 Family history of ischemic heart disease and other diseases of the circulatory system; Z83.3 Family history of diabetes mellitus; Z86.711 Personal history of pulmonary embolism; Z87.11 Personal history of peptic ulcer disease; Z87.442 Personal history of urinary calculi; Z87.891 Personal history of nicotine dependence; Z95.5 Presence of coronary angioplasty implant and graft; Z96.651 Presence of right artificial knee joint; Z87.440 Personal history of urinary (tract) infections; Z86.16 Personal history of COVID-19; Z88.1 Allergy status to other antibiotic agents; Z88.5 Allergy status to narcotic agent; Z88.0 Allergy status to penicillin; Z80.6 Family history of leukemia; Z82.69 Family history of other diseases of the musculoskeletal system and connective tissue; Z98.890 Other specified postprocedural states; Z90.89 Acquired absence of other organs; Z98.51 Tubal ligation status
CPT/HCPCS: 36415; 71046; 76770; 80048; 80053; 81001; 83605; 83735; 83880; 84484; 85025; 93005; 93306; 93308; 93970; 94640; 96374; 96375; 96376; 99285

== ENCOUNTER 2021-07-29 01:14 | Inpatient (IN) | payer MEDICARE, OTHER ==
[2021-07-29] MEDS ORDERED: SODIUM CHLORIDE 0.9% 1,000 ML IV STA (01:57)
[2021-07-29] MEDS ORDERED: IPRATROPIUM-ALBUTEROL 3 ML NEB INHALATION STA (01:57)
[2021-07-29] MEDS ORDERED: ENALAPRILAT 1.25 MG/ML 1 ML VIAL IVP STA (01:58)
[2021-07-29] MEDS ORDERED: FUROSEMIDE 10 MG/ML 10 ML VIAL IV STA (01:58)
--- NOTE | 2021-07-29 01:58 | ED ---
SOB HPI - General Chief Complaint: Shortness of Breath Stated Complaint: Leg Swelling Time Seen by Provider: 07/29/21 01:31 Source: patient, EMS, RN notes reviewed, old records reviewed Limitations: no limitations - History of Present Illness Initial Comments: This is a 40-year-old female DF for evaluation patient presents today for evaluation of severe shortness of breath worsening. Patient has persistent shortness of breath here in the emergency department with episodes of hypoxia. Bilateral lower extremity edema which she states is getting worse recently off her Lasix. Patient currently not feeling well denying chest pain. Patient is no travel history or sick contacts. MD Complaint: shortness of breath, cough, "asthma attack" -: hour(s), days(s) Radiation: back Severity: moderate Severity scale (1-10): 4 Quality: dull Consistency: intermittent Improves With: rest, bronchodilators, upright position Worsens With: lying flat, exertion, movement, coughing Known History Of: COPD, asthma, congestive heart failure Context: recent URI, recent illness Associated Symptoms: cough, sputum production Treatments Prior to Arrival: none - Related Data Home Medications Medication Instructions Recorded Confirmed Ferrous Sulfate [Iron] 325 mg PO DAILY 07/11/18 05/24/21 carvediloL 25 mg PO BID 07/11/18 05/24/21 Semaglutide [Ozempic] 0.5 mg SQ MO@2100 11/19/19 05/24/21 ALPRAZolam [Xanax] 0.5 mg PO BID PRN 06/16/20 05/24/21 Albuterol Sulfate [Ventolin HFA] 1 - 2 puff INHALATION RT-QID PRN 06/16/20 05/24/21 Albuterol Nebulized [Ventolin 2.5 mg INHALATION RT-QID PRN 08/07/20 05/24/21 Nebulized] Budesonide/Formoterol Fumarate 2 puff INHALATION RT-BID 08/07/20 05/24/21 [Symbicort 160-4.5 Mcg Inhaler] Fluticasone Nasal [place] [Flonase 1 spray EA NOSTRIL DAILY PRN 08/07/20 05/24/21 Nasal [place]] Insulin Glargine,Hum.rec.anlog 40 unit SQ HS 08/07/20 05/24/21 [Lantus Solostar Pen] Montelukast [Singulair] 10 mg PO HS 08/07/20 05/24/21 Multivitamins, Thera [Multivitamin 1 tab PO DAILY 08/07/20 05/24/21 (formulary)] Nitroglycerin [Nitro-Dur 0.4MG/Hr 1 patch TRANSDERM Q48H PRN 08/07/20 05/24/21 Patch] traZODone HCL [Desyrel] 50 mg PO HS PRN 10/05/20 05/24/21 rOPINIRole HCL [Requip] 0.25 mg PO HS 02/01/21 05/24/21 Aspirin EC [Ecotrin Low Dose] 81 mg PO DAILY 03/06/21 05/24/21 Nitroglycerin Sl Tabs [Nitrostat] 0.4 mg SUBLINGUAL Q5M PRN 05/04/21 05/24/21 Previous Rx's Medication Instructions Recorded Atorvastatin [Lipitor] 80 mg PO HS #30 tab 12/06/18 Clopidogrel [Plavix] 75 mg PO DAILY #30 tab 12/06/18 Apixaban [Eliquis] 5 mg PO BID #180 tab 11/21/19 hydrALAZINE HCL [Apresoline] 100 mg PO TID #90 tab 08/09/20 HYDROcodone/APAP 5-325MG [[place] 1 tab PO Q6HR PRN 3 Days #12 tab 12/28/20 5-325] Ezetimibe [Zetia] 10 mg PO DAILY #30 tab 02/02/21 Pantoprazole [Protonix] 40 mg PO BID #60 tab 02/02/21 Potassium Chloride ER [K-Dur 20] 20 meq PO DAILY #30 tablet 02/02/21 Sertraline [Zoloft] 50 mg PO DAILY #30 tab 02/02/21 amLODIPine [Norvasc] 10 mg PO DAILY #30 tab 02/02/21 Furosemide [Lasix] 80 mg PO BID PRN #60 tab 03/08/21 Losartan [Cozaar] 25 mg PO DAILY #30 tab 06/01/21 Magnesium Oxide [Mag-Ox] 400 mg PO DAILY #60 tab 06/01/21 Torsemide [Demadex] 20 mg PO DAILY #30 tab 06/01/21 Allergies Allergy/AdvReac Type Severity Reaction Status Date / Time cephalexin [From Keflex] Allergy Rash/Hives Verified 07/29/21 01:22 codeine Allergy Rash/Hives Verified 07/29/21 01:22 Iodine and Iodide Containing Allergy Rash/Hives Verified 07/29/21 01:22 Produc Penicillins Allergy Rash/Hives Verified 07/29/21 01:22 tramadol Allergy Rash/Hives Verified 07/29/21 01:22 Review of Systems ROS Statement: Those systems with pertinent positive or pertinent negative responses have been documented in the HPI. ROS Other: All systems not noted in ROS Statement are negative. Past Medical History Past Medical History: Atrial Fibrillation, Asthma, Coronary Artery Disease (CAD), Cancer, Heart Failure, Diabetes Mellitus, GERD/Reflux, Hyperlipidemia, Hypertension, Myocardial Infarction ([place]), Pulmonary Embolus ([place]), Renal Disease Additional Past Medical History / Comment(s): IDDM type II, cardiomyopathy, multiple MIs, bilateral PEs, childhood leukemia with chemo and radiation, peptic ulcer, gallstones, nephrolithiasis/pt passed stone on her own, UTIs, anemia, RLS, pt states she has had covid twice, recent tooth infection tx with antibiotic. Last Myocardial Infarction Date:: 05/01/2019 History of Any Multi-Drug Resistant Organisms: None Reported Past Surgical History: Section, Heart Catheterization With Stent, Joint Replacement, Tonsillectomy, Tubal Ligation Additional Past Surgical History / Comment(s): Partial R knee replacement, PCI/stents, surgery for PE/radiation. 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 Date of Last Stent Placement:: 08/02/18 Past Psychological History: Anxiety, Bipolar, Depression, Schizophrenia Smoking Status: Former smoker - Past Family History Father Family Medical History: Coronary Artery Disease (CAD), Hyperlipidemia, Hypertension Additional Family Medical History / Comment(s): pins in knee, heart stents x 4. Father is Mother Family Medical History: Coronary Artery Disease (CAD), Dementia, Diabetes Mellitus, Musculoskeletal Disorder, Renal Disease Additional Family Medical History / Comment(s): Parkinson's, stents in heart, neuropathy. General Exam General appearance: alert, in no apparent distress, anxious Head exam: Present: atraumatic, normocephalic, normal inspection Eye exam: Present: normal appearance, PERRL, EOMI. Absent: scleral icterus, conjunctival injection, periorbital swelling ENT exam: Present: normal exam, mucous membranes moist Neck exam: Present: normal inspection. Absent: tenderness, meningismus, lymphadenopathy Respiratory exam: Present: respiratory distress, wheezes, accessory muscle use, decreased breath sounds, prolonged expiratory. Absent: rales, rhonchi, stridor Cardiovascular Exam: Present: normal rhythm, tachycardia, normal heart sounds. Absent: systolic murmur, diastolic murmur, rubs, gallop, clicks GI/Abdominal exam: Present: soft, normal bowel sounds. Absent: distended, tenderness, guarding, rebound, rigid Extremities exam: Present: normal inspection, full ROM, normal capillary refill, pedal edema, other (Bilateral lower extremity edema). Absent: tenderness, joint swelling, calf tenderness Back exam: Present: normal inspection Neurological exam: Present: alert, oriented X3, CN II-XII intact Psychiatric exam: Present: normal affect, normal mood Skin exam: Present: warm, dry, intact, normal color. Absent: rash Course Vital Signs 07/29/21 07/29/21 07/29/21 01:16 01:43 01:57 Temperature 98.1 F Pulse Rate 116 H Respiratory 18 Rate Blood Pressure 203/117 153/119 O2 Sat by Pulse 97 95 Oximetry - Reevaluation(s) Reevaluation #1: 07/29/21 02:45 Medical record is reviewed Reevaluation #2: 07/29/21 02:45 Patient still having episodes of hypoxia here in the ER - Consultations Consultation #1: Spoke with Dr. Sena agrees for admission Medical Decision Making - Medical Decision Making 40 female with asthma, located by [facility] she is hypoxic here in the emergency prior. Patient will be admitted for further evaluation management, diuresis and monitoring of pulse oximetry - EKG Data -: EKG Interpreted by Me (EKG is sinus tachycardia 105 NM 136 QRS 103 QTC 418) - Radiology Data Radiology results: report reviewed (Chest x-ray shows minimal pleural fluid and CHF), image reviewed Critical Care Time Critical Care Time: Yes Total Critical Care Time: 31 Disposition Clinical Impression: Abnormal pleural fluid, Asthma with status asthmaticus, Acute exacerbation of chronic obstructive pulmonary disease, Hypoxia, Systolic congestive heart failure, CHF (congestive heart failure) Disposition: ADMITTED IP TO THIS HOSP Condition: Fair Is patient prescribed a controlled substance at d/c from ED?: No Referrals: Odell Sena MD [Primary Care Provider] - 1-2 days
--- NOTE | 2021-07-29 02:18 | XR ---
EXAMINATION TYPE: XR chest 1V portable DATE OF EXAM: 07/29/2021 COMPARISON: 05/24/2021 HISTORY: Short of breath TECHNIQUE: Single view FINDINGS: Heart is enlarged. No heart failure. Costophrenic angles are fairly clear. There are chest leads. There are no hilar masses. IMPRESSION: Moderate cardiomegaly without change. No obvious heart failure. Possible minimal left ple ural fluid.
[2021-07-29 02:45] LABS: INR 1.1 (<1.2); Prothrombin Time 12.1 sec (9.0-12.0)
[2021-07-29] MEDS ORDERED: LORazepam 2 MG/ML INJ IV PRN (02:48)
[2021-07-29] MEDS ORDERED: ONDANSETRON 4 MG/2 ML VIAL IVP PRN (02:48)
[2021-07-29] MEDS ORDERED: methylPREDNISolone SOD SUCCI 125 MG/2 ML VIAL IV STA (02:48)
[2021-07-29] MEDS ORDERED: NALOXONE 0.4 MG/ML 1 ML VIAL IV PRN (02:48)
[2021-07-29 02:55] LABS: Partial Thromboplastin Time 18.8 sec (22.0-30.0)
[2021-07-29 03:26] LABS: Calcium 8.5 mg/dL (8.4-10.2)
[2021-07-29 03:59] LABS: Albumin 3.8 g/dL (3.5-5.0); Magnesium 1.6 mg/dL (1.6-2.3); Potassium 4.4 mmol/L (3.5-5.1); Total Protein 6.6 g/dL (6.3-8.2)
[2021-07-29 04:00] LABS: Total Bilirubin 1.6 mg/dL (0.2-1.3)
[2021-07-29 05:02] LABS: Anisocytosis Slight; Basophils # (A) 0.1 k/uL (0-0.2); Basophils % (A) 1 %; Eosinophils # (A) 0.1 k/uL (0-0.7); Eosinophils % (A) 1 %; HCT 42.6 % (34.0-46.0); HGB 13.4 gm/dL (11.4-16.0); Hypochromasia Slight; Lymphocytes # (A) 0.8 k/uL (1.0-4.8); Lymphocytes % (A) 9 %; MCH 28.2 pg (25.0-35.0); MCHC 31.4 g/dL (31.0-37.0); Mean Platelet Volume 8.4; Monocytes # (A) 0.3 k/uL (0-1.0); Monocytes % (A) 3 %; Neutrophils # (A) 7.8 k/uL (1.3-7.7); Neutrophils % (A) 85 %; Platelet Count 181 k/uL (150-450); RBC 4.74 m/uL (3.80-5.40); RDW 16.1 % (11.5-15.5); WBC 9.2 k/uL (3.8-10.6)
[2021-07-29] MEDS: IPRATROPIUM-ALBUTEROL 3 ML NEB INHALATION SCH ×6 (05:14→22:50)
[2021-07-29] MEDS: methylPREDNISolone SOD SUCCI 125 MG/2 ML VIAL IV SCH ×4 (07:03→19:47)
[2021-07-29] MEDS: FUROSEMIDE 10 MG/ML 4 ML VIAL IV SCH ×2 (11:42→19:47)
[2021-07-29] MEDS ORDERED: ALPRAZolam 0.5 MG TAB PO PRN (12:26)
[2021-07-29] MEDS ORDERED: hydrALAZINE HCL 50 MG TAB PO SCH (12:30)
[2021-07-29] MEDS: amLODIPine 10 MG TAB PO SCH (14:56)
[2021-07-29] MEDS: TORSEMIDE 20 MG TAB PO SCH (14:56)
[2021-07-29] MEDS: hydrALAZINE HCL 50 MG TAB PO SCH ×3 (14:56→19:46)
[2021-07-29] MEDS: APIXABAN 5 MG TAB PO SCH ×2 (14:56→19:46)
[2021-07-29] MEDS: PANTOPRAZOLE 40 MG TABLET PO SCH (14:57)
[2021-07-29] MEDS: SPIRONOLACTONE 25 MG TAB PO SCH (14:57)
[2021-07-29] MEDS: CLOPIDOGREL 75 MG TAB PO SCH (14:57)
[2021-07-29] MEDS: LOSARTAN 50 MG TAB PO SCH (14:57)
[2021-07-29] MEDS: ASPIRIN 81 MG PO SCH (14:57)
[2021-07-29 16:50] LABS: Glucose,Whole Blood 350 mg/dL (75-99)
[2021-07-29] MEDS: INSULIN ASPART (NovoLOG) 100 UNIT/ML VIAL SQ SCH ×2 (16:57→20:28)
--- NOTE | 2021-07-29 17:44 | HP ---
HISTORY AND PHYSICAL CHIEF COMPLAINT: Shortness of breath. HISTORY OF PRESENT ILLNESS: This is another admission for this 40-year-old white female who has a longstanding history of atherosclerotic cardiovascular disease with coronary artery disease and cardiomyopathy. She has had numerous infarctions in the past as well as episodes of congestive heart failure. She is somewhat of a difficult management case, in that when she is seen in the office she states that everything is normal, including her blood pressure. Whenever her blood pressure is checked in the office, it is quite high. She recently requested to be referred to [place] and has been there once and has a further evaluation planned. She came into the emergency room short of breath. She also had some mild chest pain and pleural effusion. Blood pressure was markedly elevated. REVIEW OF SYSTEMS: She denies any headaches, change in vision or hearing, focal neurologic signs or symptoms, cough, hemoptysis, syncope, abdominal pain, nausea, vomiting, hematemesis, melena, hematochezia, jaundice, hepatitis, cirrhosis, hematuria, frequency, urgency, incontinence, nocturia. Past medical history, family history, and personal and social histories reveal that she has MULTIPLE ALLERGIES, INCLUDING NYSTATIN, CODEINE, TRAMADOL, IODINE, CEPHALOSPORINS AND PENICILLIN. She is on numerous medications, including trazodone, Ozempic, Lantus, albuterol MDI, Toprol-XL, amlodipine 10 mg, Jardiance 25 mg, torsemide 20 mg, magnesium, losartan, Ropinirole, ezetimibe, potassium, Symbicort, Dilaudid, clopidogrel, atorvastatin, pantoprazole, hydralazine, Flonase, Xanax, sertraline, Eliquis, montelukast, iron, carvedilol. Past medical history, family history, and personal and social histories are significant in that she has had numerous problems with her cardiovascular disease. She has also had gastric ulcer disease and she had childhood leukemia by history. She used to smoke but states that she has stopped. She does not drink. PHYSICAL EXAMINATION: Blood pressure is 203/117 with a pulse of 116, respirations were 35, and she is afebrile. In general she appeared to be overweight and in no acute distress. She was short of breath. Head, ears, eyes, nose, mouth and throat were normal. Neck veins could not be assessed due to her adiposity. Chest demonstrated poor breath sounds with scattered rales. Cardiac exam demonstrated sinus tachycardia with no murmurs. There was an S4. The abdomen is protuberant, soft and nontender without any masses or visceromegaly. Extremities are normal. Neurologically she is intact. She is admitted to the hospital with diagnoses: 1. Acute congestive heart failure. 2. Chronic congestive heart failure. 3. Pansystolic heart failure. 4. Cardiomyopathy. 5. Atherosclerotic cardiovascular disease. 6. Coronary artery disease. 7. Hypertensive urgency. 8. Insulin-dependent diabetes mellitus. 9. Hyperlipidemia. PLAN: 1. Bedrest. 2. IV fluids. 3. Serial troponins. 4. BNP. 5. Diuresis. 6. Control hypertension. 7. Consult Cardiology. MMODL / IJN: [id number] /
[2021-07-29] MEDS: ATORVASTATIN 80 MG TAB PO SCH (19:46)
[2021-07-29] MEDS: MAGNESIUM OXIDE 400 MG TAB PO SCH (19:48)
[2021-07-29 20:17] LABS: Glucose,Whole Blood 379 mg/dL (75-99)
[2021-07-29] MEDS ORDERED: INSULIN DETEMIR (LEVEMIR) 100 UNIT/ML SYR SQ SCH (21:00)
[2021-07-30] MEDS: methylPREDNISolone SOD SUCCI 125 MG/2 ML VIAL IV SCH (05:41)
[2021-07-30 06:09] LABS: Glucose,Whole Blood 279 mg/dL (75-99)
[2021-07-30] MEDS: PANTOPRAZOLE 40 MG TABLET PO SCH ×2 (06:12→17:01)
[2021-07-30] MEDS: INSULIN ASPART (NovoLOG) 100 UNIT/ML VIAL SQ SCH ×4 (06:43→20:23)
[2021-07-30] MEDS: IPRATROPIUM-ALBUTEROL 3 ML NEB INHALATION SCH ×6 (07:32→23:17)
[2021-07-30] MEDS: NON FORMULARY DRUG (Empagliflozin [Jardiance] 25 MG Tablet) PO SCH (08:31)
[2021-07-30 09:01] LABS: Anisocytosis Slight; Basophils % (A) 0 %; Eosinophils % (A) 0 %; HCT 45.5 % (34.0-46.0); HGB 14.1 gm/dL (11.4-16.0); Hypochromasia Slight; Lymphocytes # (A) 0.8 k/uL (1.0-4.8); Lymphocytes % (A) 6 %; MCH 27.9 pg (25.0-35.0); Mean Platelet Volume 9.5; Monocytes # (A) 0.6 k/uL (0-1.0); Monocytes % (A) 5 %; Neutrophils # (A) 11.1 k/uL (1.3-7.7); Neutrophils % (A) 88 %; Platelet Count 221 k/uL (150-450); RBC 5.06 m/uL (3.80-5.40); RDW 16.1 % (11.5-15.5); WBC 12.7 k/uL (3.8-10.6)
[2021-07-30] MEDS: EZETIMIBE 10 MG TAB PO SCH (09:18)
[2021-07-30] MEDS: CLOPIDOGREL 75 MG TAB PO SCH (09:18)
[2021-07-30] MEDS: SERTRALINE 50 MG TAB PO SCH (09:18)
[2021-07-30] MEDS: FERROUS SULFATE 325 MG TAB PO SCH (09:18)
[2021-07-30] MEDS: FUROSEMIDE 10 MG/ML 4 ML VIAL IV SCH ×2 (09:18→20:17)
[2021-07-30] MEDS: MAGNESIUM OXIDE 400 MG TAB PO SCH ×2 (09:18→20:17)
[2021-07-30] MEDS: ASPIRIN 81 MG PO SCH (09:18)
[2021-07-30] MEDS: SPIRONOLACTONE 25 MG TAB PO SCH (09:18)
[2021-07-30] MEDS: APIXABAN 5 MG TAB PO SCH ×2 (09:18→20:18)
[2021-07-30] MEDS: amLODIPine 10 MG TAB PO SCH (09:18)
[2021-07-30] MEDS: hydrALAZINE HCL 50 MG TAB PO SCH ×3 (09:19→20:17)
[2021-07-30] MEDS: METOPROLOL SUCCINATE (ER) 100 MG TAB.ER.24H PO SCH (09:19)
[2021-07-30] MEDS: TORSEMIDE 20 MG TAB PO SCH (09:19)
[2021-07-30] MEDS: LOSARTAN 50 MG TAB PO SCH (09:19)
[2021-07-30 09:43] LABS: Albumin 3.9 g/dL (3.5-5.0); Calcium 9.1 mg/dL (8.4-10.2); Total Bilirubin 1.3 mg/dL (0.2-1.3); Total Protein 6.5 g/dL (6.3-8.2)
[2021-07-30 09:48] LABS: Potassium 4.3 mmol/L (3.5-5.1)
[2021-07-30 11:31] LABS: Glucose,Whole Blood 227 mg/dL (75-99)
--- NOTE | 2021-07-30 12:16 | P.CRDCN ---
History of Present Illness History of present illness: This is a 40-year-old female with a past medical history significant for coronary artery disease with previous stenting, hypertension, hyperlipidemia, congestive heart failure, and LV thrombus on anticoagulation with Eliquis, type 2 diabetes. Patient did follow with Dr. Davila, last follow up in 11/2019. We have been asked to see the patient in consultation for congestive heart failure. Patient presented to the emergency department with complaints shortness of breath. Patient states that she has been worsening orthopnea, lower extremity edema and shortness of breath over the past week. She denies any chest pain, lightheadedness, dizzines, syncope or near syncope. She states she is compliant with her medications, was transitioned from Lasix to Torsemide in May. She states she has been somewhat compliant with her diet. Patient states she recently went to follow-up with cardiology at [facility] she states she was sent there by her PCP Dr. Sena and underwent w orkup for possible defibrillator secondary to cardiomyopathy, however echo was obtained at [facility] and patient had an improvement in her EF of 5055%. She was told to follow up, has an appointment at the end of this month. DIAGNOSTICS * EKG reveals sinus tachycardia, HR 105, left atrial enlargement, incomplete RBBB, poor R wave progression, no acute ST-T wave abnormalities to suggest ischemia * Chest xray moderate cardiomegaly. * Laboratory data: proBNP 3060, sodium 134, potassium 4.4, BUN 22, serum crit 0.9, troponin negative 3 * Current home cardiac medications include Eliquis 5 mg twice a day, aspirin 81mg daily, atorvastatin 80 mg nightly, Plavix 75 mg daily, Jardiance 25mg daily, Torsemide 20mg daily, Zetia 10mg daily,metoprolol succinate 100mg daily, amlodipine 10mg daily , hydralazine 100mg TID, metolazone 5 mg daily, losartan 100 mg daily, spironolactone 25mg daily, * Most recent echocardiogram we have on file 05/28/2021- 3540%, apical thrombus noted, apex hypokinesis, small generalized pericardial effusion * Cardiac catheterization history: * 10/05/20 revealed patent stent in LAD and left circumflex, critical stenosis in the first diagonal branch and the fourth obtuse marginal branch without progression compared to 2019. * November 2019 underwent cardiac catheterization in revealing patent stent to the LAD and circumflex * April 2019 with stent placement to LAD REVIEW OF SYSTEMS: At the time of my exam: CONSTITUTIONAL: Denies fever or chills. HEENT: Denies blurred vision, vision changes, or eye pain. Denies hemoptysis CARDIOVASCULAR: Denies chest pain. Denies orthopnea. Denies PND. Denies palpitations RESPIRATORY: Denies shortness of breath. GASTROINTESTINAL: Denies abdominal pain. Denies nausea or vomiting. HEMATOLOGIC: Denies bleeding disorders. GENITOURINARY: Denies any blood in urine. SKIN: Denies pruitis. Denies rash. PHYSICAL EXAM: VITAL SIGNS: Reviewed. GENERAL: Well-developed in no acute distress. HEENT: Head is normocephalic. Pupils are equal, round. Sclerae anicteric. Mucous membranes of the mouth are moist. Neck supple. No JVD LUNGS: Respirations even and unlabored. Lungs diminished bilaterally HEART: Regular rate and rhythm. S1 and S2 heard. Systolic ejection murmur ABDOMEN: Soft. Nondistended. Nontender. EXTREMITIES: Normal range of motion. No clubbing or cyanosis. Peripheral pulses intact. 3+ bilateral lower extremity edema SKIN: Right schuster with erythema noted, some clear discharge NEUROLOGIC: Awake and alert. Oriented x 3. ASSESSMENT: Acute exacerbation of chronic heart failure, patient states her EF 50-55% recently obtained at [facility] in 06/2021, our last Echo 06/08 35-40%. Coronary artery disease with previous PCI to LAD and circumflex History of LV thrombus, on anticoagulation with Eliquis Hypertension Hyperlipidemia Morbid obesity Anxiety Depression Bipolar disorder PLAN: Continue IV Diuresis for 24 hours, likely transition to PO tomorrow Monitor I/os, daily weights renal function and electrolytes Continue home cardiac medications Further recommendations based on clinic course Nurse practitioner note has been reviewed by physician. Signing provider agrees with the documented findings, assessment, and plan of care. Past Medical History Past Medical History: Atrial Fibrillation, Asthma, Coronary Artery Disease (CAD), Cancer, Heart Failure, Diabetes Mellitus, GERD/Reflux, Hyperlipidemia, Hypertension, Myocardial Infarction ([place]), Pulmonary Embolus ([place]), Renal Disease, Respiratory Disorder Additional Past Medical History / Comment(s): IDDM type II, cardiomyopathy, multiple MIs, bilateral PEs, childhood leukemia with chemo and radiation, hypomagnesemia, anemia, peptic ulcer, gallstones, nephrolithiasis/pt passed stone on her own, UTIs, anemia, RLS, occasional R calf cramping since dog bite 10/2020, pt states she has had covid twice. Last Myocardial Infarction Date:: 04/2019 History of Any Multi-Drug Resistant Organisms: None Reported Past Surgical History: Section, Heart Catheterization With Stent, Joint Replacement, Tonsillectomy, Tubal Ligation Additional Past Surgical History / Comment(s): Partial R knee replacement, PCI/stents, surgery for PE/radiation. 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 Date of Last Stent Placement:: 05/08/19 Smoking Status: Former smoker - Past Family History Father Family Medical History: Coronary Artery Disease (CAD), Hyperlipidemia, Hypertens ion Additional Family Medical History / Comment(s): pins in knee, heart stents x 4. Father is Mother Family Medical History: Coronary Artery Disease (CAD), Dementia, Diabetes Mellitus, Musculoskeletal Disorder, Renal Disease Additional Family Medical History / Comment(s): Parkinson's, stents in heart, neuropathy. Medications and Allergies Home Medications Medication Instructions Recorded Confirmed Type Ferrous Sulfate [Iron] 325 mg PO DAILY 07/11/18 07/29/21 History Atorvastatin [Lipitor] 80 mg PO HS #30 tab 12/06/18 07/29/21 Rx Clopidogrel [Plavix] 75 mg PO DAILY #30 tab 12/06/18 07/29/21 Rx Semaglutide [Ozempic] 0.5 mg SQ MO@2100 11/19/19 07/29/21 History Apixaban [Eliquis] 5 mg PO BID #180 tab 11/21/19 07/29/21 Rx ALPRAZolam [Xanax] 0.5 mg PO BID PRN 06/16/20 07/29/21 History Insulin Glargine,Hum.rec.anlog 40 unit SQ HS 08/07/20 07/29/21 History [Lantus Solostar Pen] rOPINIRole HCL [Requip] 0.25 mg PO HS 02/01/21 07/29/21 History Ezetimibe [Zetia] 10 mg PO DAILY #30 tab 02/02/21 07/29/21 Rx Pantoprazole [Protonix] 40 mg PO BID #60 tab 02/02/21 07/29/21 Rx Sertraline [Zoloft] 50 mg PO DAILY #30 tab 02/02/21 07/29/21 Rx amLODIPine [Norvasc] 10 mg PO DAILY #30 tab 02/02/21 07/29/21 Rx Aspirin EC [Ecotrin Low Dose] 81 mg PO DAILY 03/06/21 07/29/21 History Torsemide [Demadex] 20 mg PO DAILY #30 tab 06/01/21 07/29/21 Rx Empagliflozin [Jardiance] 25 mg PO DAILY 07/29/21 07/29/21 History Losartan Potassium [Cozaar] 100 mg PO DAILY 07/29/21 07/29/21 History Magnesium Oxide [Mag-Ox] 400 mg PO BID 07/29/21 07/29/21 History Metoprolol Succinate (ER) [Toprol 100 mg PO DAILY 07/29/21 07/29/21 History Xl] Spironolactone 25 mg PO DAILY 07/29/21 07/29/21 History hydrALAZINE HCL [Apresoline] 100 mg PO BID 07/29/21 07/29/21 History Allergies Allergy/AdvReac Type Severity Reaction Status Date / Time cephalexin [From Keflex] Allergy Rash/Hives Verified 07/29/21 07:07 codeine Allergy Rash/Hives Verified 07/29/21 07:07 Iodine and Iodide Containing Allergy Rash/Hives Verified 07/29/21 07:07 Produc Penicillins Allergy Anaphylaxis Verified 07/29/21 07:07 tramadol Allergy Rash/Hives Verified 07/29/21 07:07 Physical Exam Vitals: Vital Signs Temp Pulse Pulse Resp BP BP Pulse Ox 07/29/21 11:58 98.0 F 86 18 179/110 96 07/29/21 11:46 90 07/29/21 11:38 88 07/29/21 07:07 90 07/29/21 07:00 97 07/29/21 06:57 87 07/29/21 05:30 70 15 148/98 95 07/29/21 03:04 90 18 149/103 98 07/29/21 02:56 94 07/29/21 02:46 92 07/29/21 01:57 95 07/29/21 01:43 153/119 07/29/21 01:16 98.1 F 116 H 18 203/117 97 Intake and Output 07/28/21 07/29/21 07/29/21 22:59 06:59 14:59 Other: Weight 93.894 kg 93.894 kg Results 07/30/21 07:28 07/30/21 08:44 Cardiac Enzymes 07/29/21 07/29/21 07/29/21 Range/Units 01:40 04:40 09:00 AST 43 H (14-36) U/L Troponin I 0.059 H* 0.027 (0.000-0.034) ng/mL Coagulation 07/29/21 Range/Units 01:40 PT 12.1 H (9.0-12.0) sec APTT 18.8 L (22.0-30.0) sec CBC 07/29/21 Range/Units 04:40 WBC 9.2 (3.8-10.6) k/uL RBC 4.74 (3.80-5.40) m/uL Hgb 13.4 (11.4-16.0) gm/dL Hct 42.6 (34.0-46.0) % Plt Count 181 (150-450) k/uL Comprehensive Metabolic Panel 07/29/21 Range/Units 01:40 Sodium 134 L (137-145) mmol/L Potassium 4.4 (3.5-5.1) mmol/L Chloride 105 (98-107) mmol/L Carbon Dioxide 19 L (22-30) mmol/L BUN 22 H (7-17) mg/dL Creatinine 0.97 (0.52-1.04) mg/dL Glucose 185 H (74-99) mg/dL Calcium 8.5 (8.4-10.2) mg/dL AST 43 H (14-36) U/L ALT 18 (4-34) U/L Alkaline Phosphatase 59 (38-126) U/L Total Protein 6.6 (6.3-8.2) g/dL Albumin 3.8 (3.5-5.0) g/dL Current Medications Generic Name Dose Route Start Last Admin Trade Name Freq PRN Reason Stop Dose Admin Albuterol/Ipratropium 3 ml 07/29/21 04:00 07/29/21 11:38 Ipratropium-Albuterol 3 Ml Neb INHALATION 3 ml RT-Q4H [facility] Administration Alprazolam 0.5 mg 07/29/21 12:26 Alprazolam 0.5 Mg Tab PO BID PRN Anxiety Amlodipine Besylate 10 mg 07/29/21 12:30 Amlodipine 10 Mg Tab PO DAILY [facility] Apixaban 5 mg 07/29/21 12:30 Apixaban 5 Mg Tab PO BID [facility] Protocol Aspirin 81 mg 07/29/21 12:30 Aspirin 81 Mg PO DAILY [facility] Atorvastatin Calcium 80 mg 07/29/21 21:00 Atorvastatin 80 Mg Tab PO HS [facility] Clopidogrel Bisulfate 75 mg 07/29/21 12:30 Clopidogrel 75 Mg Tab PO DAILY [facility] Ezetimibe 10 mg 07/30/21 09:00 Ezetimibe 10 Mg Tab PO DAILY [facility] Ferrous Sulfate 325 mg 07/30/21 09:00 Ferrous Sulfate 325 Mg Tab PO DAILY [facility] Furosemide 40 mg 07/29/21 09:00 07/29/21 11:42 Furosemide 10 Mg/Ml 4 Ml Vial IV 40 mg Q12HR [facility] Administration Hydralazine HCl 100 mg 07/29/21 12:45 Hydralazine Hcl 50 Mg Tab PO TID [facility] Sodium Chloride 1,000 mls @ 20 mls/hr 07/29/21 01:57 07/29/21 02:13 Saline 0.9% IV 07/30/21 01:56 20 mls/hr .Q24H [facility] Administration Insulin Detemir 40 unit 07/29/21 21:00 Insulin Detemir (Levemir) 100 Unit/Ml Syr SQ HS [facility] Lorazepam 0.5 mg 07/29/21 02:48 Lorazepam 2 Mg/Ml Inj IV Q6HR PRN Anxiety Losartan Potassium 100 mg 07/29/21 12:30 Losartan 50 Mg Tab PO DAILY [facility] Magnesium Oxide 400 mg 07/29/21 21:00 Magnesium Oxide 400 Mg Tab PO BID [facility] Methylprednisolone Sodium Succinate 60 mg 07/29/21 06:00 07/29/21 11:41 Methylprednisolone Sod Succi 125 Mg/2 Ml Vial IV 60 mg Q6HR [facility] Administration Metoprolol Succinate 100 mg 07/30/21 09:00 Metoprolol Succinate (Er) 100 Mg Tab.Er.24h PO DAILY [facility] Morphine Sulfate 4 mg 07/29/21 02:48 Morphine Sulfate 4 Mg/Ml Syringe IV Q4HR PRN Severe Pain Naloxone HCl 0.2 mg 07/29/21 02:48 Naloxone 0.4 Mg/Ml 1 Ml Vial IV Q2M PRN Opioid Reversal Non-Formulary Medication 25 mg 07/30/21 09:00 Empagliflozin [Jardiance] PO DAILY [facility] Ondansetron HCl 4 mg 07/29/21 02:48 Ondansetron 4 Mg/2 Ml Vial IVP Q8HR PRN Nausea And Vomiting Pantoprazole Sodium 40 mg 07/29/21 17:30 Pantoprazole 40 Mg Tablet PO AC-BID [facility] Ropinirole HCl 0.25 mg 07/29/21 21:00 Ropinirole Hcl 0.25 Mg Tab PO HS [facility] Sertraline HCl 50 mg 07/30/21 09:00 Sertraline 50 Mg Tab PO DAILY [facility] Spironolactone 25 mg 07/29/21 12:30 Spironolactone 25 Mg Tab PO DAILY [facility] Torsemide 20 mg 07/29/21 12:30 Torsemide 20 Mg Tab PO DAILY [facility] Intake and Output 07/28/21 07/29/21 07/29/21 22:59 06:59 14:59 Other: Weight 93.894 kg 93.894 kg Patient Weight 07/30/21 06:59 Weight 93.894 kg 07/29/21 04:40 07/29/21 01:40
[2021-07-30 16:30] LABS: Glucose,Whole Blood 187 mg/dL (75-99)
[2021-07-30 20:11] LABS: Glucose,Whole Blood 213 mg/dL (75-99)
[2021-07-30] MEDS: INSULIN DETEMIR (LEVEMIR) 100 UNIT/ML SYR SQ SCH (20:17)
[2021-07-30] MEDS: ATORVASTATIN 80 MG TAB PO SCH (20:17)
[2021-07-31] MEDS: IPRATROPIUM-ALBUTEROL 3 ML NEB INHALATION SCH ×5 (03:21→21:24)
[2021-07-31 07:09] LABS: Glucose,Whole Blood 184 mg/dL (75-99)
[2021-07-31] MEDS: INSULIN ASPART (NovoLOG) 100 UNIT/ML VIAL SQ SCH ×4 (07:13→20:53)
[2021-07-31] MEDS: PANTOPRAZOLE 40 MG TABLET PO SCH ×2 (07:13→16:53)
[2021-07-31] MEDS: amLODIPine 10 MG TAB PO SCH (08:33)
[2021-07-31] MEDS: SPIRONOLACTONE 25 MG TAB PO SCH (08:33)
[2021-07-31] MEDS: LOSARTAN 50 MG TAB PO SCH (08:33)
[2021-07-31] MEDS: ASPIRIN 81 MG PO SCH (08:33)
[2021-07-31] MEDS: APIXABAN 5 MG TAB PO SCH ×2 (08:33→20:53)
[2021-07-31] MEDS: hydrALAZINE HCL 50 MG TAB PO SCH ×3 (08:33→20:53)
[2021-07-31] MEDS: CLOPIDOGREL 75 MG TAB PO SCH (08:33)
[2021-07-31] MEDS: EZETIMIBE 10 MG TAB PO SCH (08:33)
[2021-07-31] MEDS: MAGNESIUM OXIDE 400 MG TAB PO SCH ×2 (08:33→20:53)
[2021-07-31] MEDS: FERROUS SULFATE 325 MG TAB PO SCH (08:33)
[2021-07-31] MEDS: SERTRALINE 50 MG TAB PO SCH (08:33)
[2021-07-31] MEDS: NON FORMULARY DRUG (Empagliflozin [Jardiance] 25 MG Tablet) PO SCH (08:34)
[2021-07-31] MEDS: FUROSEMIDE 10 MG/ML 4 ML VIAL IV SCH (08:34)
[2021-07-31] MEDS: METOPROLOL SUCCINATE (ER) 100 MG TAB.ER.24H PO SCH (08:34)
[2021-07-31 09:09] LABS: Calcium 8.9 mg/dL (8.4-10.2); Potassium 4.3 mmol/L (3.5-5.1)
[2021-07-31 11:41] LABS: Glucose,Whole Blood 229 mg/dL (75-99)
--- NOTE | 2021-07-31 14:57 | P.PN ---
Subjective This is a 40-year-old female with a past medical history significant for coronary artery disease with previous stenting, hypertension, hyperlipidemia, congestive heart failure, and LV thrombus on anticoagulation with Eliquis, type 2 diabetes. Patient did follow with Dr. Davila, last follow up in 11/2019. We have been asked to see the patient in consultation for congestive heart failure. Patient presented to the emergency department with complaints shortness of breath. Patient states that she has been worsening orthopnea, lower extremity edema and shortness of breath over the past week. She denies any chest pain, lightheadedness, dizzines, syncope or near syncope. She states she is compliant with her medications, was transitioned from Lasix to Torsemide in May. She states she has been somewhat compliant with her diet. Patient states she recently went to follow-up with cardiology at [facility] she states she was sent there by her PCP Dr. Sena and underwent workup for possible defibrillator secondary to cardiomyopathy, however echo was obtained at [facility] and patient had an improvement in her EF of 5055%. She was told to follow up, has an appointment at the end of this month. DIAGNOSTICS * EKG reveals sinus tachycardia, HR 105, left atrial enlargement, incomplete RBBB, poor R wave progression, no acute ST-T wave abnormalities to suggest ischemia * Chest xray moderate cardiomegaly. * Laboratory data: proBNP 3060, sodium 134, potassium 4.4, BUN 22, serum crit 0.9, troponin negative 3 * Current home cardiac medications include Eliquis 5 mg twice a day, aspirin 81mg daily, atorvastatin 80 mg nightly, Plavix 75 mg daily, Jardiance 25mg daily, Torsemide 20mg daily, Zetia 10mg daily,metoprolol succinate 100mg daily, amlodipine 10mg daily , hydralazine 100mg TID, metolazone 5 mg daily, losartan 100 mg daily, spironolactone 25mg daily, * Most recent echocardiogram we have on file 05/28/2021- 3540%, apical thrombus noted, apex hypokinesis, small generalized pericardial effusion * Cardiac catheterization history: * 10/05/20 revealed patent stent in LAD and left circumflex, critical stenosis in the first diagonal branch and the fourth obtuse marginal branch without progression compared to 2019. * November 2019 underwent cardiac catheterization in revealing patent stent to the LAD and circumflex * April 2019 with stent placement to LAD 07/31 Patient seen and examined. Patient denies any chest pain or pressure. She states her shortness breath is improved. She admits her lower extremity edema has improved however still feels she has some. She does have 2+ pitting edema however admits she normally has some degree of lower extremity edema. She has been on the Lasix 40 mg IV twice a day. She was previously with diuresis she has had kidney injury. Her creatinine has increased to 1.4 today. No lightheadedness. PHYSICAL EXAM: VITAL SIGNS: Reviewed. GENERAL: Well-developed in no acute distress. HEENT: Head is normocephalic. Pupils are equal, round. Sclerae anicteric. Mucous membranes of the mouth are moist. Neck supple. No JVD LUNGS: Respirations even and unlabored. Lungs diminished bilaterally HEART: Regular rate and rhythm. S1 and S2 heard. Systolic ejection murmur ABDOMEN: Soft. Nondistended. Nontender. EXTREMITIES: Normal range of motion. No clubbing or cyanosis. Peripheral pulses intact. 3+ bilateral lower extremity edema SKIN: Right schuster with erythema noted, some clear discharge NEUROLOGIC: Awake and alert. Oriented x 3. ASSESSMENT: Acute exacerbation of chronic heart failure, patient states her EF 50-55% recently obtained at [facility] in 06/2021, our last Echo 06/08 35-40%. Coronary artery disease with previous PCI to LAD and circumflex History of LV thrombus, on anticoagulation with Eliquis Hypertension Hyperlipidemia Morbid obesity Anxiety Depression Bipolar disorder Acute kidney injury PLAN: Patient with acute kidney injury may be related to over diuresis. We will change to oral Lasix for tomorrow and monitor kidney function. She still does have lower extremity edema which likely is mainly related to venous insufficiency. Discussed keeping legs elevated. Hopeful discharge in next 24- 48 hours. Monitor I/os, daily weights renal function and electrolytes Continue home cardiac medications Further recommendations based on clinic course Objective - Vital Signs Vital signs: Vital Signs Temp 97.6 F 07/31/21 11:34 Pulse 76 07/31/21 11:58 Resp 20 07/31/21 11:34 BP 139/95 07/31/21 11:34 Pulse Ox 97 07/31/21 11:34 Intake & Output 07/30/21 07/31/21 07/31/21 18:59 06:59 18:59 Intake Total 240 416 Balance 240 416 Intake: Oral 240 416 - Labs CBC & Chem 7: 07/30/21 07:28 07/31/21 08:14 Labs: Abnormal Lab Results - Last 24 Hours (Table) 07/30/21 07/30/21 07/31/21 Range/Units 16:26 20:09 07:07 BUN (7-17) mg/dL Creatinine (0.52-1.04) mg/dL Glucose (74-99) mg/dL POC Glucose (mg/dL) 187 H 213 H 184 H (75-99) mg/dL 07/31/21 07/31/21 Range/Units 08:14 11:39 BUN 43 H (7-17) mg/dL Creatinine 1.44 H (0.52-1.04) mg/dL Glucose 200 H (74-99) mg/dL POC Glucose (mg/dL) 229 H (75-99) mg/dL
[2021-07-31 16:49] LABS: Glucose,Whole Blood 145 mg/dL (75-99)
[2021-07-31 20:47] LABS: Glucose,Whole Blood 234 mg/dL (75-99)
[2021-07-31] MEDS ORDERED: ACETAMINOPHEN TAB 325 MG TAB PO PRN (20:51)
[2021-07-31] MEDS: INSULIN DETEMIR (LEVEMIR) 100 UNIT/ML SYR SQ SCH (20:53)
[2021-07-31] MEDS: ATORVASTATIN 80 MG TAB PO SCH (20:53)
[2021-07-31] MEDS: MORPHINE SULFATE 4 MG/ML SYRINGE IV PRN (23:54)
[2021-08-01] MEDS: IPRATROPIUM-ALBUTEROL 3 ML NEB INHALATION SCH ×5 (00:34→19:50)
[2021-08-01] MEDS ORDERED: IPRATROPIUM-ALBUTEROL 3 ML NEB INHALATION PRN (02:02)
[2021-08-01 06:27] LABS: Glucose,Whole Blood 217 mg/dL (75-99)
[2021-08-01] MEDS: PANTOPRAZOLE 40 MG TABLET PO SCH ×2 (06:28→16:58)
[2021-08-01] MEDS: INSULIN ASPART (NovoLOG) 100 UNIT/ML VIAL SQ SCH ×4 (06:28→21:45)
[2021-08-01] MEDS: CLOPIDOGREL 75 MG TAB PO SCH (08:06)
[2021-08-01] MEDS: LOSARTAN 50 MG TAB PO SCH (08:06)
[2021-08-01] MEDS: FERROUS SULFATE 325 MG TAB PO SCH (08:06)
[2021-08-01] MEDS: APIXABAN 5 MG TAB PO SCH ×2 (08:06→21:45)
[2021-08-01] MEDS: METOPROLOL SUCCINATE (ER) 100 MG TAB.ER.24H PO SCH (08:06)
[2021-08-01] MEDS: EZETIMIBE 10 MG TAB PO SCH (08:06)
[2021-08-01] MEDS: SPIRONOLACTONE 25 MG TAB PO SCH (08:06)
[2021-08-01] MEDS: MAGNESIUM OXIDE 400 MG TAB PO SCH ×2 (08:06→21:45)
[2021-08-01] MEDS: SERTRALINE 50 MG TAB PO SCH (08:06)
[2021-08-01] MEDS: hydrALAZINE HCL 50 MG TAB PO SCH ×3 (08:06→21:45)
[2021-08-01] MEDS: ASPIRIN 81 MG PO SCH (08:06)
[2021-08-01] MEDS: amLODIPine 10 MG TAB PO SCH (08:06)
[2021-08-01] MEDS: NON FORMULARY DRUG (Empagliflozin [Jardiance] 25 MG Tablet) PO SCH (08:09)
[2021-08-01] MEDS: MORPHINE SULFATE 4 MG/ML SYRINGE IV PRN (08:10)
[2021-08-01 11:53] LABS: Glucose,Whole Blood 161 mg/dL (75-99)
[2021-08-01] MEDS: FUROSEMIDE 40 MG TAB PO SCH (12:05)
--- NOTE | 2021-08-01 13:22 | PN ---
PROGRESS NOTE DATE OF SERVICE: 07/31/2021 CHIEF COMPLAINT: Acute congestive heart failure. HISTORY OF PRESENT ILLNESS: This lady states that she is feeling better. She is having trouble with a toothache. She states her breathing is much better. Blood sugars are slightly elevated and so is her blood pressure. PHYSICAL EXAMINATION: She has better breath sounds. There are fewer rales and rhonchi and there is no wheezing. Cardiac exam is normal. The abdomen is soft and nontender. IMPRESSION: 1. Acute congestive heart failure. 2. Uncontrolled hypertension. 3. Coronary artery disease. 4. Atherosclerotic cardiomyopathy. 5. Diabetes. PLAN: 1. Increase insulin slightly. 2. Continue with diuresis. 3. Address her toothache pain. MMODL / IJN: [id number] /
--- NOTE | 2021-08-01 13:26 | PN ---
PROGRESS NOTE DATE OF SERVICE: 08/01/2021 CHIEF COMPLAINT: Congestive heart failure. HISTORY OF PRESENT ILLNESS: This lady is doing a bit better. Blood pressures are improved. Breathing is improved. PHYSICAL EXAMINATION: Chest demonstrates fairly good breath sounds bilaterally and her cardiac exam is unchanged. Abdomen is soft, nontender. IMPRESSION: 1. Congestive heart failure. 2. Cardiomyopathy. 3. Atherosclerotic cardiovascular disease. 4. Coronary artery disease. 5. Diabetes. 6. Renal failure. 7. Hypertension. PLAN: Continue to follow with efforts to control her hypertension and diabetes. MMODL / IJN: [id number] /
--- NOTE | 2021-08-01 15:29 | P.PN ---
Subjective This is a 40-year-old female with a past medical history significant for coronary artery disease with previous stenting, hypertension, hyperlipidemia, congestive heart failure, and LV thrombus on anticoagulation with Eliquis, type 2 diabetes. Patient did follow with Dr. Davila, last follow up in 11/2019. We have been asked to see the patient in consultation for congestive heart failure. Patient presented to the emergency department with complaints shortness of breath. Patient states that she has been worsening orthopnea, lower extremity edema and shortness of breath over the past week. She denies any chest pain, lightheadedness, dizzines, syncope or near syncope. She states she is compliant with her medications, was transitioned from Lasix to Torsemide in May. She states she has been somewhat compliant with her diet. Patient states she recently went to follow-up with cardiology at [facility] she states she was sent there by her PCP Dr. Sena and underwent workup for possible defibrillator secondary to cardiomyopathy, however echo was obtained at [facility] and patient had an improvement in her EF of 5055%. She was told to follow up, has an appointment at the end of this month. DIAGNOSTICS * EKG reveals sinus tachycardia, HR 105, left atrial enlargement, incomplete RBBB, poor R wave progression, no acute ST-T wave abnormalities to suggest ischemia * Chest xray moderate cardiomegaly. * Laboratory data: proBNP 3060, sodium 134, potassium 4.4, BUN 22, serum crit 0.9, troponin negative 3 * Current home cardiac medications include Eliquis 5 mg twice a day, aspirin 81mg daily, atorvastatin 80 mg nightly, Plavix 75 mg daily, Jardiance 25mg daily, Torsemide 20mg daily, Zetia 10mg daily,metoprolol succinate 100mg daily, amlodipine 10mg daily , hydralazine 100mg TID, metolazone 5 mg daily, losartan 100 mg daily, spironolactone 25mg daily, * Most recent echocardiogram we have on file 05/28/2021- 3540%, apical thrombus noted, apex hypokinesis, small generalized pericardial effusion * Cardiac catheterization history: * 10/05/20 revealed patent stent in LAD and left circumflex, critical stenosis in the first diagonal branch and the fourth obtuse marginal branch without progression compared to 2019. * November 2019 underwent cardiac catheterization in revealing patent stent to the LAD and circumflex * April 2019 with stent placement to LAD 07/31 Patient seen and examined. Patient denies any chest pain or pressure. She states her shortness breath is improved. She admits her lower extremity edema has improved however still feels she has some. She does have 2+ pitting edema however admits she normally has some degree of lower extremity edema. She has been on the Lasix 40 mg IV twice a day. She was previously with diuresis she has had kidney injury. Her creatinine has increased to 1.4 today. No lightheadedness. 08/01 Patient seen and examined. Patient denies any chest pain or pressure. States her shortness breath was abdominal improved. No blood work yet today and we will get repeat to monitor kidney function. Still is diuresing well. PHYSICAL EXAM: VITAL SIGNS: Reviewed. GENERAL: Well-developed in no acute distress. HEENT: Head is normocephalic. Pupils are equal, round. Sclerae anicteric. Mucous membranes of the mouth are moist. Neck supple. No JVD LUNGS: Respirations even and unlabored. Lungs diminished bilaterally HEART: Regular rate and rhythm. S1 and S2 heard. Systolic ejection murmur ABDOMEN: Soft. Nondistended. Nontender. EXTREMITIES: Normal range of motion. No clubbing or cyanosis. Peripheral pulses intact. 3+ bilateral lower extremity edema SKIN: Right schuster with erythema noted, some clear discharge NEUROLOGIC: Awake and alert. Oriented x 3. ASSESSMENT: Acute exacerbation of chronic heart failure, patient states her EF 50-55% recently obtained at [facility] in 06/2021, our last Echo 06/08 35-40%. Coronary artery disease with previous PCI to LAD and circumflex History of LV thrombus, on anticoagulation with Eliquis Hypertension Hyperlipidemia Morbid obesity Anxiety Depression Bipolar disorder Acute kidney injury PLAN: Continue with oral diuretics and check kidney function. Likely if no significant change patient may be discharged home tomorrow. Monitor I/os, daily weights renal function and electrolytes Continue home cardiac medications Further recommendations based on clinic course Objective - Vital Signs Vital signs: Vital Signs Temp 97.9 F 08/01/21 11:49 Pulse 80 08/01/21 15:25 Resp 20 08/01/21 11:49 BP 137/82 08/01/21 11:49 Pulse Ox 96 08/01/21 11:49 Intake & Output 07/31/21 08/01/21 08/01/21 18:59 06:59 18:59 Intake Total 656 240 Balance 656 240 Weight 105 kg Intake: Oral 656 240 Other: Voiding Method Toilet # Voids 1 - Labs CBC & Chem 7: 07/30/21 07:28 07/31/21 08:14 Labs: Abnormal Lab Results - Last 24 Hours (Table) 07/31/21 07/31/21 08/01/21 Range/Units 16:48 20:38 06:26 POC Glucose (mg/dL) 145 H 234 H 217 H (75-99) mg/dL 08/01/21 Range/Units 11:52 POC Glucose (mg/dL) 161 H (75-99) mg/dL
[2021-08-01 16:19] LABS: Glucose,Whole Blood 199 mg/dL (75-99)
[2021-08-01 18:41] LABS: Albumin 3.6 g/dL (3.5-5.0); Phosphorus 4.4 mg/dL (2.5-4.5); Potassium 4.6 mmol/L (3.5-5.1)
[2021-08-01 20:40] LABS: Glucose,Whole Blood 169 mg/dL (75-99)
[2021-08-01] MEDS: ATORVASTATIN 80 MG TAB PO SCH (21:45)
[2021-08-01] MEDS: INSULIN DETEMIR (LEVEMIR) 100 UNIT/ML SYR SQ SCH (21:45)
[2021-08-02 05:14] VITALS: TEMP 98.1
[2021-08-02 05:48] LABS: Glucose,Whole Blood 141 mg/dL (75-99)
[2021-08-02] MEDS: INSULIN ASPART (NovoLOG) 100 UNIT/ML VIAL SQ SCH ×3 (06:29→16:49)
[2021-08-02] MEDS: PANTOPRAZOLE 40 MG TABLET PO SCH ×2 (06:29→16:07)
[2021-08-02 06:52] LABS: Albumin 3.4 g/dL (3.5-5.0); Calcium 8.7 mg/dL (8.4-10.2); Phosphorus 3.8 mg/dL (2.5-4.5); Potassium 4.5 mmol/L (3.5-5.1)
[2021-08-02] MEDS: IPRATROPIUM-ALBUTEROL 3 ML NEB INHALATION SCH ×3 (08:19→16:17)
[2021-08-02 08:21] VITALS: RESP 16
[2021-08-02] MEDS: ASPIRIN 81 MG PO SCH (08:22)
[2021-08-02] MEDS: EZETIMIBE 10 MG TAB PO SCH (08:22)
[2021-08-02] MEDS: FUROSEMIDE 40 MG TAB PO SCH ×2 (08:23→08:31)
[2021-08-02] MEDS: SERTRALINE 50 MG TAB PO SCH (08:23)
[2021-08-02] MEDS: MAGNESIUM OXIDE 400 MG TAB PO SCH (08:23)
[2021-08-02] MEDS: FERROUS SULFATE 325 MG TAB PO SCH (08:23)
[2021-08-02] MEDS: APIXABAN 5 MG TAB PO SCH (08:23)
[2021-08-02] MEDS: CLOPIDOGREL 75 MG TAB PO SCH (08:24)
[2021-08-02] MEDS: LOSARTAN 50 MG TAB PO SCH (08:25)
[2021-08-02] MEDS: SPIRONOLACTONE 25 MG TAB PO SCH (08:25)
[2021-08-02] MEDS: METOPROLOL SUCCINATE (ER) 100 MG TAB.ER.24H PO SCH (08:25)
[2021-08-02] MEDS: hydrALAZINE HCL 50 MG TAB PO SCH ×2 (08:25→16:07)
[2021-08-02] MEDS: amLODIPine 10 MG TAB PO SCH (08:25)
[2021-08-02] MEDS: NON FORMULARY DRUG (Empagliflozin [Jardiance] 25 MG Tablet) PO SCH (08:26)
--- NOTE | 2021-08-02 10:15 | CDI ---
Documentation Clarification Form Date: 08/02/2021 09:51:27 AM From: Ruchi Calhoun CCS, CCDS Admit Date: 07/29/2021 02:49:00 AM Patient Name: Petty Franklin Visit Number: [id number] Discharge Date: ATTENTION: The Clinical Documentation Specialists (CDI) and [facility] Coding Staff appreciate your assistance in clarifying documentation. Please respond to the clarification below the line at the bottom and electronically sign. The CDI & [facility] Coding staff will review the response and follow-up if needed. Please note: Queries are made part of the Legal Health Record. If you have any questions, please contact the author of this message via ITS. Dr. Karl Calderon: Atrial Fibrillation is documented in the patient's Past Medical History in the 07/29 ED Note and the 07/30 Cardiology Consult without further specificity. Additional clarification regarding the type of Atrial Fibrillation is requested. 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 Clinical Indicators: Presented to the ED on 07/29 via EMS with SOB & leg swelling. Admit with Abnormal Pleural Fluid, Asthma with Status Asthmaticus, Acute Exacerbation COPD, Hypoxia and Systolic CHF. 07/29 VS: T 98.1, P 116, R 18, BP 203/117, 153/119; PO 97 RA - 88 RA - 95 2Lnc, BMI: 42.7 07/29 LAB: Neut 7.8, Lymph 0.8; PT 12.1, APTT 18.8; Na 134, CO2 19, BUN 22, glucose 185, total Bilirubin 1.6, AST 43, Troponin 0.059^^, 0.027 07/29 CXR: Moderate cardiomegaly without change, No obvious heart failure, Possible minimal left pleural fluid. 07/29 EKG: R 105 Sinus tachycardia with frequent SVT premature complexes, Possible left atrial enlargement, Right axis deviation, Incomplete RBBB, Possible anterior [place], probably old. Treatment 07/29: INH Duoneb, IV Na Cl 1,000 mls @ 20 mls/hr q24H, IV Vasotec 1.25 mg x1, IV Lasix 60 mg x1, IV Ativan 0.5 mg q6H, IV Solumedrol 125 mg x1, IV Morphine 4 mg q4H/prn, po Eliquis 5 mg BID, po Aspirin 81 mg Daily, po Plavix 75 mg Daily, po Coxaar 100 mg Daily, po Aldactone 25 mg Daily Home meds include: Norvasc, Eliquis, Aspirin, Plavix, Lasix, Apresoline, Cozaar, Mag-Ox, Toprol, Aldacotone Please clarify the type of Atrial Fibrillation, if known: [ ] Chronic [ ] Permanent [ x ] Paroxysmal [ ] Persistent [ ] Other, please specify [ ] Unable to determine (Template Last Revised: July 2020) MTDD
--- NOTE | 2021-08-02 10:26 | CDI ---
Documentation Clarification Form Date: 08/02/2021 10:16:00 AM From: Ruchi Calhoun CCS, EVARISTO Admit Date: 07/29/2021 02:49:00 AM Patient Name: Petty Franklin Visit Number: [id number] Discharge Date: ATTENTION: The Clinical Documentation Specialists (CDI) and [facility] Coding Staff appreciate your assistance in clarifying documentation. Please respond to the clarification below the line at the bottom and electronically sign. The CDI & [facility] Coding staff will review the response and follow-up if needed. Please note: Queries are made part of the Legal Health Record. If you have any questions, please contact the author of this message via ITS. Dr. Karl Calderon: CHF and Heart Failure is documented in the 07/29 ED Note, the 07/29 History & Physical, the 07/30 Cardiology Consult and in subsequent Progress Notes without the specificity of the Type of CHF. Additional information regarding the Type of CHF is requested. 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 Clinical Indicators: Presented to the ED on 07/29 via EMS with SOB, bilateral leg swelling and hypoxia. Admit with Abnormal Pleural Fluid, Asthma with Status Asthmaticus, Acute Exacerbation COPD, Hypoxia and Systolic CHF. 07/29 VS: T 98.1, P 116, R 18, BP 203/117, 153/119; PO 97 RA - 88 RA - 95 2Lnc, BMI: 42.7 07/29 LAB: Neut 7.8, Lymph 0.8; PT 12.1, APTT 18.8; Na 134, CO2 19, BUN 22, glucose 185, total Bilirubin 1.6, AST 43, Troponin 0.059^^, 0.027 07/29 CXR: Moderate cardiomegaly without change, No obvious heart failure, Possible minimal left pleural fluid. 07/29 EKG: R 105 Sinus tachycardia with frequent SVT premature complexes, Possible left atrial enlargement, Right axis deviation, Incomplete RBBB, Possible anterior [place], probably old. Per the 07/30 Cardiology Consult: Most recent echocardiogram we have on file 05/28/2021- 3540%, apical thrombus noted, apex hypokinesis, small generalized pericardial effusion. Cardiac catheterization history: Acute exacerbation of chronic heart failure, patient states her EF 50-55% recently obtained at [facility] in 06/2021, our last Echo 06/08 35-40%. Treatment 07/29: INH Duoneb, IV Na Cl 1,000 mls @ 20 mls/hr q24H, IV Vasotec 1.25 mg x1, IV Lasix 60 mg x1, IV Ativan 0.5 mg q6H, IV Solumedrol 125 mg x1, IV Morphine 4 mg q4H/prn, po Eliquis 5 mg BID, po Aspirin 81 mg Daily, po Plavix 75 mg Daily, po Coxaar 100 mg Daily, po Aldactone 25 mg Daily Home meds include: Norvasc, Eliquis, Aspirin, Plavix, Lasix, Apresoline, Cozaar, Mag-Ox, Toprol, Aldacotone In your professional opinion, can you please clarify the Type of CHF if known? [ x ] Acute on Chronic Systolic Heart Failure (reduced EF) [ ] Acute on Chronic Diastolic Heart Failure (preserved EF) [ ] Acute on Chronic Heart Failure Systolic & Diastolic Heart Failure [ ] Other, please specify [ ] Unable to determine (Template Last Revised: April 2020) MTDD
[2021-08-02 11:46] LABS: Glucose,Whole Blood 136 mg/dL (75-99)
--- NOTE | 2021-08-02 13:33 | P.PN ---
Subjective Progress Note Date: 08/02/21 This is a 40-year-old female with a past medical history significant for coronary artery disease with previous stenting, hypertension, hyperlipidemia, congestive heart failure, and LV thrombus on anticoagulation with Eliquis, type 2 diabetes. Patient did follow with Dr. Davila, last follow up in 11/2019. We have been asked to see the patient in consultation for congestive heart failure. Patient presented to the emergency department with complaints shortness of breath. Patient states that she has been worsening orthopnea, lower extremity edema and shortness of breath over the past week. She denies any chest pain, lightheadedness, dizzines, syncope or near syncope. She states she is compliant with her medications, was transitioned from Lasix to Torsemide in May. She states she has been somewhat compliant with her diet. Patient states she recently went to follow-up with cardiology at [facility] she states she was sent there by her PCP Dr. Sena and underwent workup for possible defibrillator secondary to cardiomyopathy, however echo was obtained at [facility] and patient had an improvement in her EF of 5055%. She was told to follow up, has an appointment at the end of this month. DIAGNOSTICS * EKG reveals sinus tachycardia, HR 105, left atrial enlargement, incomplete RBB B, poor R wave progression, no acute ST-T wave abnormalities to suggest ischemia * Chest xray moderate cardiomegaly. * Laboratory data: proBNP 3060, sodium 134, potassium 4.4, BUN 22, serum crit 0.9, troponin negative 3 * Current home cardiac medications include Eliquis 5 mg twice a day, aspirin 81mg daily, atorvastatin 80 mg nightly, Plavix 75 mg daily, Jardiance 25mg daily, Torsemide 20mg daily, Zetia 10mg daily,metoprolol succinate 100mg daily, amlodipine 10mg daily , hydralazine 100mg TID, metolazone 5 mg daily, losartan 100 mg daily, spironolactone 25mg daily, * Most recent echocardiogram we have on file 05/28/2021- 3540%, apical thrombus noted, apex hypokinesis, small generalized pericardial effusion * Cardiac catheterization history: * 10/05/20 revealed patent stent in LAD and left circumflex, critical stenosis in the first diagonal branch and the fourth obtuse marginal branch without progression compared to 2019. * November 2019 underwent cardiac catheterization in revealing patent stent to the LAD and circumflex * April 2019 with stent placement to LAD 07/31 Patient seen and examined. Patient denies any chest pain or pressure. She states her shortness breath is improved. She admits her lower extremity edema has improved however still feels she has some. She does have 2+ pitting edema however admits she normally has some degree of lower extremity edema. She has been on the Lasix 40 mg IV twice a day. She was previously with diuresis she has had kidney injury. Her creatinine has increased to 1.4 today. No lightheadedness. 08/01 Patient seen and examined. Patient denies any chest pain or pressure. States her shortness breath was abdominal improved. No blood work yet today and we will get repeat to monitor kidney function. Still is diuresing well. 08/02/2021 Patient examined this morning at the bedside. She denies chest pain or pressure. Denies SOB. Vital signs are stable. Kidney function is stable. PHYSICAL EXAM: VITAL SIGNS: Reviewed. GENERAL: Well-developed in no acute distress. HEENT: Head is normocephalic. Pupils are equal, round. Sclerae anicteric. Mucous membranes of the mouth are moist. Neck supple. No JVD LUNGS: Respirations even and unlabored. Lungs diminished bilaterally HEART: Regular rate and rhythm. S1 and S2 heard. Systolic ejection murmur ABDOMEN: Soft. Nondistended. Nontender. EXTREMITIES: Normal range of motion. No clubbing or cyanosis. Peripheral pulses intact. 1+ bilateral lower extremity edema NEUROLOGIC: Awake and alert. Oriented x 3. ASSESSMENT: Acute exacerbation of chronic heart failure, patient states her EF 50-55% rec ently obtained at [facility] in 06/2021, our last Echo 06/08 35-40%. Coronary artery disease with previous PCI to LAD and circumflex History of LV thrombus, on anticoagulation with Eliquis Hypertension Hyperlipidemia Morbid obesity Anxiety Depression Bipolar disorder Acute kidney injury PLAN: Continue current cardiac medications Patient may be discharged home today from a cardiac standpoint and follow up outpatient Nurse practitioner note has been reviewed by physician. Signing provider agrees with the documented findings, assessment, and plan of care. Objective - Vital Signs Vital signs: Vital Signs Temp 98.1 F 08/02/21 04:00 Pulse 80 08/02/21 12:00 Resp 16 08/02/21 12:00 BP 147/95 08/02/21 12:00 Pulse Ox 94 L 08/02/21 12:00 Intake & Output 08/01/21 08/02/21 08/02/21 18:59 06:59 18:59 Intake Total 480 Balance 480 Weight 105 kg 106 kg Intake: Oral 480 Other: Voiding Method Toilet # Voids 1 - Labs CBC & Chem 7: 07/30/21 07:28 08/02/21 06:06 Labs: Abnormal Lab Results - Last 24 Hours (Table) 08/01/21 08/01/21 08/01/21 Range/Units 16:17 18:02 20:36 Sodium 134 L (137-145) mmol/L BUN 36 H (7-17) mg/dL Creatinine 1.16 H (0.52-1.04) mg/dL Glucose 231 H (74-99) mg/dL POC Glucose (mg/dL) 199 H 169 H (75-99) mg/dL Albumin (3.5-5.0) g/dL 08/02/21 08/02/21 08/02/21 Range/Units 05:31 06:06 11:45 Sodium (137-145) mmol/L BUN 32 H (7-17) mg/dL Creatinine 1.18 H (0.52-1.04) mg/dL Glucose 125 H (74-99) mg/dL POC Glucose (mg/dL) 141 H 136 H (75-99) mg/dL Albumin 3.4 L (3.5-5.0) g/dL
[2021-08-02 16:06] VITALS: PULSE 76
[2021-08-02 16:09] VITALS: BP 168/97
[2021-08-02 16:10] LABS: Glucose,Whole Blood 184 mg/dL (75-99)
--- NOTE | 2021-08-02 21:39 | PN ---
PROGRESS NOTE DATE OF SERVICE: 07/30/2021 CHIEF COMPLAINT: Acute congestive heart failure and malignant hypertension. HISTORY OF PRESENT ILLNESS: This lady is doing a little bit better. Her breathing has improved. She has diuresed some. Blood pressure is still quite high. PHYSICAL EXAMINATION: Breath sounds are somewhat diminished posteriorly. Cardiac exam demonstrates an S4. Her abdomen is soft and nontender. Edema is less. IMPRESSION: 1. Acute congestive heart failure. 2. Chronic congestive heart failure (pansystolic and diastolic). 3. Coronary artery disease. 4. Atherosclerotic cardiomyopathy. 5. Renal failure. PLAN: Continue with diuresis. Await any further recommendations from Cardiology. MMODL / IJN: [id number] /
--- NOTE | 2021-08-02 21:43 | DS ---
DISCHARGE SUMMARY CHIEF COMPLAINT: Shortness of breath. HISTORY OF PRESENT ILLNESS AND PHYSICAL EXAMINATION: Details of this lady's history and physical can be found in the initial workup. COURSE IN THE HOSPITAL: After admission she was placed on bedrest and started on intravenous fluids, updrafts and management of her hypertension and heart failure. She was seen by Cardiology. She responded to diuresis as well as antihypertensive. She seemed to be improving and the blood pressure was near normal range. She stated that she was not short of breath any longer. Cardiology felt that she could be discharged. She will go home on her usual activity and medications and be seen in the office in several days. She has another appointment in [facility]. FINAL DIAGNOSIS: 1. Acute congestive heart failure. 2. Chronic congestive heart failure. 3. Atherosclerotic cardiovascular disease. 4. Coronary artery disease. 5. Atherosclerotic cardiomyopathy. 6. Renal failure. 7. Malignant hypertension. OPERATIONS: None. CONSULTATION: Cardiology. She is improved. MMODL / IJN: [id number] /
== END 2021-08-02 17:48 | disposition home or self-care (01) | DRG 291 ==
LOC: EC 01:14 → 3SCARD 02:49
PROVIDERS: ADMIT Family Medicine; ATTEND Family Medicine
DX: I11.0 Hypertensive heart disease with heart failure (principal); I50.23 Acute on chronic systolic (congestive) heart failure; J44.1 Chronic obstructive pulmonary disease with (acute) exacerbation; J45.902 Unspecified asthma with status asthmaticus; N17.9 Acute kidney failure, unspecified; Z68.41 Body mass index [BMI] 40.0-44.9, adult; I31.3 Pericardial effusion (noninflammatory); E11.9 Type 2 diabetes mellitus without complications; I42.9 Cardiomyopathy, unspecified; E66.01 Morbid (severe) obesity due to excess calories; I48.0 Paroxysmal atrial fibrillation; R09.02 Hypoxemia; E78.5 Hyperlipidemia, unspecified; F20.9 Schizophrenia, unspecified; F31.9 Bipolar disorder, unspecified; F41.9 Anxiety disorder, unspecified; I16.0 Hypertensive urgency; G25.81 Restless legs syndrome; I25.10 Atherosclerotic heart disease of native coronary artery without angina pectoris; K21.9 Gastro-esophageal reflux disease without esophagitis; Z96.651 Presence of right artificial knee joint; I45.10 Unspecified right bundle-branch block; Z79.01 Long term (current) use of anticoagulants; K08.89 Other specified disorders of teeth and supporting structures; Z86.16 Personal history of COVID-19; I25.2 Old myocardial infarction; Z79.02 Long term (current) use of antithrombotics/antiplatelets; Z79.4 Long term (current) use of insulin; Z79.51 Long term (current) use of inhaled steroids; Z79.82 Long term (current) use of aspirin; Z79.84 Long term (current) use of oral hypoglycemic drugs; Z79.899 Other long term (current) drug therapy; Z87.891 Personal history of nicotine dependence; Z95.5 Presence of coronary angioplasty implant and graft; Z86.711 Personal history of pulmonary embolism; Z85.6 Personal history of leukemia; Z87.11 Personal history of peptic ulcer disease; Z98.890 Other specified postprocedural states; Z92.21 Personal history of antineoplastic chemotherapy; Z92.3 Personal history of irradiation; Z87.440 Personal history of urinary (tract) infections; Z86.19 Personal history of other infectious and parasitic diseases; Z88.5 Allergy status to narcotic agent; Z88.0 Allergy status to penicillin; Z88.6 Allergy status to analgesic agent; Z88.1 Allergy status to other antibiotic agents; Z91.041 Radiographic dye allergy status; Z28.310 Unvaccinated for COVID-19; Z90.89 Acquired absence of other organs; Z87.19 Personal history of other diseases of the digestive system; Z87.442 Personal history of urinary calculi; Z82.0 Family history of epilepsy and other diseases of the nervous system; Z82.49 Family history of ischemic heart disease and other diseases of the circulatory system; Z83.3 Family history of diabetes mellitus; Z84.1 Family history of disorders of kidney and ureter; Z82.69 Family history of other diseases of the musculoskeletal system and connective tissue
CPT/HCPCS: 36415; 71045; 80048; 80053; 80069; 83605; 83735; 83880; 84484; 85025; 85610; 85730; 93005; 94640; 96374; 96375; 96376; 99291

== ENCOUNTER 2021-08-26 15:08 | Inpatient (IN) | payer MEDICARE, OTHER ==
[2021-08-26] MEDS ORDERED: NITROGLYCERIN OINT 1 INCH/GM PACKET TOPICAL STA (15:15)
[2021-08-26] MEDS ORDERED: NITROGLYCERIN SL TABS 0.4 MG TAB SUBLINGUAL PRN ×2 (15:20→17:25)
--- NOTE | 2021-08-26 15:21 | ED ---
General Adult HPI - General Chief complaint: Chest Pain Stated complaint: Chest pain Time Seen by Provider: 08/26/21 15:15 Source: patient, EMS, RN notes reviewed, old records reviewed Mode of arrival: EMS - History of Present Illness Initial comments: This is a 40-year-old female with past medical history significant for multiple heart attacks and multiple stent placements. Patient also has diabetes hypertension high cholesterol has a history of A. fib congestive heart failure and has a history of some point time pulmonary embolus. Patient states at 1:30 today she started experiencing chest pain she took a nitroglycerin at home and improved her pain to about a 5 from 9 out of 10. Patient states she took one 81 mg aspirin. Patient states the last 2 weeks she's having more more difficult time breathing her legs are becoming swollen she thinks she is experiencing CHF. Patient states currently her chest pain as 5 or shortness of breath is minimal because she is lying flat not moving. Patient denies any recent fever chills or cough per patient is unvaccinated for COVID. Patient denies abdominal pain patient denies nausea vomiting diarrhea. - Related Data Home Medications Medication Instructions Recorded Confirmed Ferrous Sulfate [Iron] 325 mg PO DAILY 07/11/18 07/29/21 Semaglutide [Ozempic] 0.5 mg SQ MO@2100 11/19/19 07/29/21 ALPRAZolam [Xanax] 0.5 mg PO BID PRN 06/16/20 07/29/21 Insulin Glargine,Hum.rec.anlog 40 unit SQ HS 08/07/20 07/29/21 [Lantus Solostar Pen] rOPINIRole HCL [Requip] 0.25 mg PO HS 02/01/21 07/29/21 Aspirin EC [Ecotrin Low Dose] 81 mg PO DAILY 03/06/21 07/29/21 Empagliflozin [Jardiance] 25 mg PO DAILY 07/29/21 07/29/21 Losartan Potassium [Cozaar] 100 mg PO DAILY 07/29/21 07/29/21 Magnesium Oxide [Mag-Ox] 400 mg PO BID 07/29/21 07/29/21 Metoprolol Succinate (ER) [Toprol 100 mg PO DAILY 07/29/21 07/29/21 Xl] Spironolactone 25 mg PO DAILY 07/29/21 07/29/21 hydrALAZINE HCL [Apresoline] 100 mg PO BID 07/29/21 07/29/21 Previous Rx's Medication Instructions Recorded Atorvastatin [Lipitor] 80 mg PO HS #30 tab 12/06/18 Clopidogrel [Plavix] 75 mg PO DAILY #30 tab 12/06/18 Apixaban [Eliquis] 5 mg PO BID #180 tab 11/21/19 Ezetimibe [Zetia] 10 mg PO DAILY #30 tab 02/02/21 Pantoprazole [Protonix] 40 mg PO BID #60 tab 02/02/21 Sertraline [Zoloft] 50 mg PO DAILY #30 tab 02/02/21 amLODIPine [Norvasc] 10 mg PO DAILY #30 tab 02/02/21 Torsemide [Demadex] 20 mg PO DAILY #30 tab 06/01/21 Allergies Allergy/AdvReac Type Severity Reaction Status Date / Time cephalexin [From Keflex] Allergy Rash/Hives Verified 08/26/21 17:14 codeine Allergy Rash/Hives Verified 08/26/21 17:14 Iodine and Iodide Containing Allergy Rash/Hives Verified 08/26/21 17:14 Produc Penicillins Allergy Anaphylaxis Verified 08/26/21 17:14 tramadol Allergy Rash/Hives Verified 08/26/21 17:14 Review of Systems ROS Statement: Those systems with pertinent positive or pertinent negative responses have been documented in the HPI. ROS Other: All systems not noted in ROS Statement are negative. Past Medical History Past Medical History: Atrial Fibrillation, Asthma, Coronary Artery Disease (CAD), Cancer, Heart Failure, Diabetes Mellitus, GERD/Reflux, Hyperlipidemia, Hypertension, Myocardial Infarction ([place]), Pulmonary Embolus (PE), Renal Disease, Respiratory Disorder Additional Past Medical History / Comment(s): IDDM type II, cardiomyopathy, multiple MIs, bilateral PEs, childhood leukemia with chemo and radiation, hypomagnesemia, anemia, peptic ulcer, gallstones, nephrolithiasis/pt passed stone on her own, UTIs, anemia, RLS, occasional R calf cramping since dog bite 10/2020, pt states she has had covid twice. Last Myocardial Infarction Date:: 04/2019 History of Any Multi-Drug Resistant Organisms: None Reported Past Surgical History: Section, Heart Catheterization With Stent, Joint Replacement, Tonsillectomy, Tubal Ligation Additional Past Surgical History / Comment(s): Partial R knee replacement, PCI/stents, surgery for PE/radiation. 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 Date of Last Stent Placement:: 05/08/19 Past Psychological History: Anxiety, Bipolar, Depression, Schizophrenia Smoking Status: Former smoker - Past Family History Father Family Medical History: Coronary Artery Disease (CAD), Hyperlipidemia, Hypertension Additional Family Medical History / Comment(s): pins in knee, heart stents x 4. Father is Mother Family Medical History: Coronary Artery Disease (CAD), Dementia, Diabetes Mellitus, Musculoskeletal Disorder, Renal Disease Additional Family Medical History / Comment(s): Parkinson's, stents in heart, neuropathy. General Exam - General Exam Comments Initial Comments: GENERAL: Patient is well-developed and well-nourished. Patient is nontoxic and well- hydrated and is in mild distress. ENT: Neck is soft and supple. No significant lymphadenopathy is noted. Oropharynx is clear. Moist mucous membranes. Neck has full range of motion without eliciting any pain. EYES: The sclera were anicteric and conjunctiva were pink and moist. Extraocular movements were intact and pupils were equal round and reactive to light. Eyelids were unremarkable. PULMONARY: Unlabored respirations. Good breath sounds bilaterally. No audible rales rhonchi or wheezing was noted. CARDIOVASCULAR: There is a regular rate and rhythm without any murmurs gallops or rubs. ABDOMEN: Soft and nontender with normal bowel sounds. SKIN: Skin is clear with no lesions or rashes and otherwise unremarkable. NEUROLOGIC: Patient is alert and oriented x3. Cranial nerves II through XII are grossly intact. Motor and sensory are also intact. Normal speech, volume and content. Symmetrical smile. MUSCULOSKELETAL: Normal extremities with adequate strength and full range of motion. 2+ bilaterally LYMPHATICS: No significant lymphadenopathy is noted PSYCHIATRIC: Normal psychiatric evaluation. Course Vital Signs 08/26/21 08/26/21 15:12 17:05 Temperature 98.7 F Pulse Rate 129 H 108 H Respiratory 18 18 Rate Blood Pressure 212/138 209/157 O2 Sat by Pulse 96 99 Oximetry Medical Decision Making - Medical Decision Making EKG shows sinus tachycardia at 121 bpm AK interval 240 QRS is 86 QT interval 338 QTC is 410. Patient's EKG shows no ST segment elevation or depression. Chest x-ray shows cardiomegaly Patient's troponin was mildly elevated I spoke with Dr. Ovalles and he agreed to admit the patient admitted the patient wrote admitting orders I consulted cardiology. - Lab Data Result diagrams: 08/26/21 15:38 08/26/21 15:38 Lab Results 08/26/21 08/26/21 08/26/21 Range/Units 15:38 15:38 15:38 WBC 7.3 (3.8-10.6) k/uL RBC 4.95 (3.80-5.40) m/uL Hgb 14.5 (11.4-16.0) gm/dL Hct 44.9 (34.0-46.0) % MCV 90.7 (80.0-100.0) fL MCH 29.4 (25.0-35.0) pg MCHC 32.4 (31.0-37.0) g/dL RDW 15.0 (11.5-15.5) % Plt Count 180 (150-450) k/uL MPV 8.6 Neutrophils % 86 % Lymphocytes % 10 % Monocytes % 2 % Eosinophils % 0 % Basophils % 0 % Neutrophils # 6.2 (1.3-7.7) k/uL Lymphocytes # 0.7 L (1.0-4.8) k/uL Monocytes # 0.2 (0-1.0) k/uL Eosinophils # 0.0 (0-0.7) k/uL Basophils # 0.0 (0-0.2) k/uL Hypochromasia Slight PT 12.0 (9.0-12.0) sec INR 1.1 (<1.2) APTT 24.0 (22.0-30.0) sec Sodium 137 (137-145) mmol/L Potassium 4.4 (3.5-5.1) mmol/L Chloride 104 (98-107) mmol/L Carbon Dioxide 23 (22-30) mmol/L Anion Gap 10 mmol/L BUN 19 H (7-17) mg/dL Creatinine 0.98 (0.52-1.04) mg/dL Est GFR (CKD-EPI)AfAm 83 (>60 ml/min/1.73 sqM) Est GFR (CKD-EPI)NonAf 72 (>60 ml/min/1.73 sqM) Glucose 287 H (74-99) mg/dL Calcium 9.2 (8.4-10.2) mg/dL Magnesium 1.7 (1.6-2.3) mg/dL Total Bilirubin 1.5 H (0.2-1.3) mg/dL AST 18 (14-36) U/L ALT 14 (4-34) U/L Alkaline Phosphatase 69 (38-126) U/L Troponin I (0.000-0.034) ng/mL NT-Pro-B Natriuret Pep pg/mL Total Protein 6.8 (6.3-8.2) g/dL Albumin 4.2 (3.5-5.0) g/dL 08/26/21 08/26/21 Range/Units 15:38 15:38 WBC (3.8-10.6) k/uL RBC (3.80-5.40) m/uL Hgb (11.4-16.0) gm/dL Hct (34.0-46.0) % MCV (80.0-100.0) fL MCH (25.0-35.0) pg MCHC (31.0-37.0) g/dL RDW (11.5-15.5) % Plt Count (150-450) k/uL MPV Neutrophils % % Lymphocytes % % Monocytes % % Eosinophils % % Basophils % % Neutrophils # (1.3-7.7) k/uL Lymphocytes # (1.0-4.8) k/uL Monocytes # (0-1.0) k/uL Eosinophils # (0-0.7) k/uL Basophils # (0-0.2) k/uL Hypochromasia PT (9.0-12.0) sec INR (<1.2) APTT (22.0-30.0) sec Sodium (137-145) mmol/L Potassium (3.5-5.1) mmol/L Chloride (98-107) mmol/L Carbon Dioxide (22-30) mmol/L Anion Gap mmol/L BUN (7-17) mg/dL Creatinine (0.52-1.04) mg/dL Est GFR (CKD-EPI)AfAm (>60 ml/min/1.73 sqM) Est GFR (CKD-EPI)NonAf (>60 ml/min/1.73 sqM) Glucose (74-99) mg/dL Calcium (8.4-10.2) mg/dL Magnesium (1.6-2.3) mg/dL Total Bilirubin (0.2-1.3) mg/dL AST (14-36) U/L ALT (4-34) U/L Alkaline Phosphatase (38-126) U/L Troponin I 0.051 H* (0.000-0.034) ng/mL NT-Pro-B Natriuret Pep 3700 pg/mL Total Protein (6.3-8.2) g/dL Albumin (3.5-5.0) g/dL Critical Care Time Critical Care Time: Yes Total Critical Care Time: 35 Disposition Clinical Impression: Chest pain, Elevated troponin, Hypertensive urgency Disposition: ADMITTED IP TO THIS HOSP Referrals: Odell Sena MD [Primary Care Provider] - 1-2 days Time of Disposition: 17:12
[2021-08-26 15:58] LABS: Albumin 4.2 g/dL (3.5-5.0); Calcium 9.2 mg/dL (8.4-10.2); Magnesium 1.7 mg/dL (1.6-2.3); Potassium 4.4 mmol/L (3.5-5.1); Total Bilirubin 1.5 mg/dL (0.2-1.3); Total Protein 6.8 g/dL (6.3-8.2)
[2021-08-26 15:59] LABS: Basophils % (A) 0 %; Eosinophils % (A) 0 %; HCT 44.9 % (34.0-46.0); HGB 14.5 gm/dL (11.4-16.0); Hypochromasia Slight; Lymphocytes # (A) 0.7 k/uL (1.0-4.8); Lymphocytes % (A) 10 %; MCH 29.4 pg (25.0-35.0); MCHC 32.4 g/dL (31.0-37.0); MCV 90.7 fL (80.0-100.0); Mean Platelet Volume 8.6; Monocytes # (A) 0.2 k/uL (0-1.0); Monocytes % (A) 2 %; Neutrophils # (A) 6.2 k/uL (1.3-7.7); Neutrophils % (A) 86 %; Platelet Count 180 k/uL (150-450); RBC 4.95 m/uL (3.80-5.40); WBC 7.3 k/uL (3.8-10.6)
--- NOTE | 2021-08-26 16:04 | XR ---
EXAMINATION TYPE: XR chest 2V DATE OF EXAM: 08/26/2021 COMPARISON: X-ray dated 07/29/2021 HISTORY: Chest pain TECHNIQUE: Frontal and lateral views of the chest are obtained. FINDINGS: Persistent enlarged cardiac shadow, associated pericardial effusion can't be excluded. Mild pulmonary vascular congestion. Grossly unremarkable remainder of the lungs. No sizable pleural effusion or definite pneumothorax. No gross aggressive bone lesion. IMPRESSION: As above.
[2021-08-26 16:05] LABS: INR 1.1 (<1.2)
[2021-08-26] MEDS ORDERED: hydrALAZINE HCL 20 MG/ML 1 ML VIAL IVP STA (17:15)
[2021-08-26] MEDS ORDERED: METOPROLOL SUCCINATE (ER) 100 MG TAB.ER.24H PO SCH (18:30)
[2021-08-26 19:44] LABS: Glucose,Whole Blood 246 mg/dL (75-99)
--- NOTE | 2021-08-26 20:25 | HP ---
HISTORY AND PHYSICAL CHIEF COMPLAINT: Hypertension and chest pain. HISTORY OF PRESENT ILLNESS: This is another admission for this 40-year-old white female with extensive history of heart disease. She has had numerous episodes of coronary artery problems. She also has uncontrolled hypertension. When she comes in the office her blood pressure is always very high and she insists that it is "normal at home." She recently has taken her care to the [facility] where she is being treated and followed there. She came into the emergency room on the day of admission complaining of chest pain and her troponin was elevated. Her blood pressure is 230/150. She is also diabetic. REVIEW OF SYSTEMS: She has had no diaphoresis or nausea. She has been short of breath. She has had no nausea, vomiting. Review of systems otherwise noncontributory. Past medical history, family history and personal and social histories reveal that she has a history of previous myocardial infarction, hypertension, heart failure, type 2 diabetes, and chronic kidney disease. She has smoked in the past, but quit many years ago. She does not drink. She does have a history of having had some type of leukemia as a child. She has also had upper GI bleeding from gastric ulcer disease. Surgically she has had numerous cardiac cath and stent placements. PHYSICAL EXAMINATION: Blood pressure is 230/150 with a pulse of 93 and regular. Respirations were normal. She is afebrile. In general she appeared to be overweight and in no acute distress. Skin was dry. Head, ears, eyes, nose, mouth and throat were normal. Neck veins cannot be assessed. Chest demonstrated decreased breath sounds throughout with no rhonchi, rales. Cardiac exam demonstrated sinus rhythm with an S4. Abdomen is soft and protuberant. There is no tenderness or masses. Extremities are normal. Neurologically, she is intact. IMPRESSION: She is admitted to the hospital with diagnoses: 1. Chest pain. 2. Elevated troponin. 3. Hypertensive urgency. 4. Coronary artery disease. 5. Atherosclerotic cardiomyopathy. 6. Uncontrolled hypertension. 7. History of heart failure. 8. Renal failure. PLAN: 1. Bedrest. 2. IV fluids. 3. Heparin. 4. Serial EKG and enzymes. 5. Consult Cardiology. 6. Control hypertension. MMODL / IJN: [id number] /
[2021-08-26] MEDS: NITROGLYCERIN OINT 1 INCH/GM PACKET TOPICAL SCH ×2 (20:57→23:50)
[2021-08-26] MEDS ORDERED: APIXABAN 5 MG TAB PO SCH (21:00)
[2021-08-26] MEDS: MAGNESIUM OXIDE 400 MG TAB PO SCH (21:04)
[2021-08-26] MEDS: ALPRAZolam 0.5 MG TAB PO PRN (21:04)
[2021-08-26] MEDS: carvediloL 12.5 MG TAB PO SCH (21:05)
[2021-08-26] MEDS: INSULIN DETEMIR (LEVEMIR) 100 UNIT/ML SYR SQ SCH (21:05)
[2021-08-26] MEDS: ATORVASTATIN 80 MG TAB PO SCH (21:06)
[2021-08-26] MEDS: MONTELUKAST 10 MG TAB PO SCH (21:07)
[2021-08-26] MEDS: amLODIPine 10 MG TAB PO SCH ×2 (21:07→21:13)
[2021-08-26] MEDS: PANTOPRAZOLE 40 MG TABLET PO SCH (21:07)
[2021-08-26] MEDS: SPIRONOLACTONE 25 MG TAB PO SCH (21:07)
[2021-08-26] MEDS: hydrALAZINE HCL 50 MG TAB PO SCH ×2 (21:08→21:15)
[2021-08-26] MEDS: ASPIRIN 81 MG PO SCH ×2 (21:08→21:15)
[2021-08-26] MEDS: CLOPIDOGREL 75 MG TAB PO SCH (21:08)
[2021-08-26] MEDS: LOSARTAN 50 MG TAB PO SCH ×2 (21:09→21:15)
[2021-08-26] MEDS: TORSEMIDE 20 MG TAB PO SCH (21:10)
[2021-08-26] MEDS: INSULIN ASPART (NovoLOG) 100 UNIT/ML VIAL SQ SCH (22:23)
[2021-08-27 02:00] LABS: Chol/HDL Ratio 4.41 Ratio
[2021-08-27 05:51] LABS: Glucose,Whole Blood 128 mg/dL (75-99)
[2021-08-27] MEDS: NITROGLYCERIN OINT 1 INCH/GM PACKET TOPICAL SCH (05:51)
[2021-08-27] MEDS: INSULIN ASPART (NovoLOG) 100 UNIT/ML VIAL SQ SCH ×4 (06:30→20:08)
[2021-08-27] MEDS ORDERED: HEPARIN SODIUM 1,000 UN/ML (10ML VL) IV PRN (08:33)
[2021-08-27] MEDS ORDERED: ASPIRIN 325 MG TAB PO SCH (09:00)
[2021-08-27] MEDS ORDERED: FAMOTIDINE 20 MG/2 ML VIAL IV ONE (09:17)
[2021-08-27] MEDS ORDERED: methylPREDNISolone SOD SUCCI 125 MG/2 ML VIAL IV ONE (09:17)
[2021-08-27] MEDS ORDERED: diphenhydrAMINE 50 MG/ML 1 ML VIAL IVP ONE (09:17)
[2021-08-27] MEDS: HEPARIN SOD,PORK IN 0.45% NACL 25,000 UNIT in 0.45% NACL 1 250ML.BAG IV SCH ×2 (09:44→10:09)
[2021-08-27] MEDS: predniSONE 10 MG TAB PO SCH (09:46)
[2021-08-27] MEDS: SPIRONOLACTONE 25 MG TAB PO SCH (09:46)
[2021-08-27] MEDS: FERROUS SULFATE 325 MG TAB PO SCH (09:46)
[2021-08-27] MEDS: TORSEMIDE 20 MG TAB PO SCH (09:46)
[2021-08-27] MEDS: EZETIMIBE 10 MG TAB PO SCH (09:46)
[2021-08-27] MEDS: PANTOPRAZOLE 40 MG TABLET PO SCH ×2 (09:46→20:06)
[2021-08-27] MEDS: carvediloL 12.5 MG TAB PO SCH ×2 (09:46→19:16)
[2021-08-27] MEDS: MAGNESIUM OXIDE 400 MG TAB PO SCH ×2 (09:46→20:06)
[2021-08-27] MEDS: SERTRALINE 50 MG TAB PO SCH (09:46)
[2021-08-27] MEDS: ASPIRIN 81 MG PO SCH (09:46)
[2021-08-27] MEDS: CLOPIDOGREL 75 MG TAB PO SCH (09:46)
[2021-08-27] MEDS: VALSARTAN 160 MG TAB PO SCH (09:47)
[2021-08-27] MEDS ORDERED: IV FLUID CONTINUATION 1,000 ML IV ONE (10:04)
[2021-08-27] MEDS ORDERED: methylPREDNISolone SOD SUCCI 125 MG/2 ML VIAL IM ONE (10:04)
[2021-08-27] MEDS ORDERED: methylPREDNISolone SOD SUCCI 125 MG/2 ML VIAL IV STA (10:14)
[2021-08-27] MEDS ORDERED: methylPREDNISolone SOD SUCCI 125 MG/2 ML VIAL IVP ONE (10:49)
[2021-08-27] MEDS ORDERED: fentaNYL (PF) 50 MCG/ML 2 ML AMP IVP ONE (10:49)
[2021-08-27] MEDS ORDERED: LIDOCAINE 1% INJ 10MG/ML (5 ML VIAL-PF) SQ ONE (10:58)
[2021-08-27] MEDS ORDERED: VERAPAMIL SYRINGE (5 MG/10 ML) INTRAARTER ONE (11:05)
[2021-08-27] MEDS ORDERED: HEPARIN SODIUM 1,000 UN/ML (10ML VL) IV ONE (11:10)
--- NOTE | 2021-08-27 11:11 | CA ---
Transthoracic Echo Report Name: Petty Franklin Age: 40 Gender: F : 1980 Exam Date: 08/27/2021 09:32 Exam Location: [facility] Ht (in): 62 Wt (lb): 234 Ordering Physician: Madhuri Parsons Attending/Referring Phys: Line Haul [employer] Roberta Aleman, BONIFACIO Procedure CPT: Indications: Repeat. Increasing elevated troponin. LV Function Cardiac Hx: Technical Quality: Technically difficult study Contrast 1: Lumason Total Dose (mL): 3 Contrast 2: Total Dose (mL): MEASUREMENTS (Male / Female) Normal Values 2D ECHO LV Diastolic Diameter PLAX 3.8 cm 4.2 - 5.9 / 3.9 - 5.3 cm LV Systolic Diameter PLAX 4.1 cm IVS Diastolic Thickness 1.5 cm 0.6 - 1.0 / 0.6 - 0.9 cm LVPW Diastolic Thickness 2.1 cm 0.6 - 1.0 / 0.6 - 0.9 cm LV Relative Wall Thickness 1.0 RV Internal Dim ED PLAX 3.4 cm LA Systolic Diameter LX 4.6 cm 3.0 - 4.0 / 2.7 - 3.8 cm M-MODE MV E Point Septal Separation 0.3 cm DOPPLER MV Area PHT 5.3 cm??? Mitral E Point Velocity 57.4 cm/s Mitral A Point Velocity 44.7 cm/s Mitral E to A Ratio 1.3 MV Deceleration Time 142.4 ms TR Peak Velocity 208.6 cm/s TR Peak Gradient 17.4 mmHg Right Ventricular Systolic Press 22.1 mmHg FINDINGS Left Ventricle Moderately increased left ventricular wall thickness. 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 There is a clot which is a large in size, sitting at the apex. Right Ventricle Normal right ventricular size and function. Right Atrium Normal right atrial size. Left Atrium Moderately increased left atrial diameter. Mitral Valve Structurally normal mitral valve. Aortic Valve Trileaflet aortic valve. Tricuspid Valve Structurally normal tricuspid valve. Mild tricuspid regurgitation. Pulmonic Valve Pulmonic valve not well visualized. Pericardium Echo free space anterior to the right ventricle likely represents a fat pad. Aorta Aortic root and proximal ascending aorta not well visualized. CONCLUSIONS #1. 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 There is a large clot at the apical area. #2. Left atrial enlargement of moderate degree. #3. Mild tricuspid regurgitation Previewed by: Dr. Rajiv Crockett MD (Electronically Signed) Final Date: 27 August 2021 11:10
[2021-08-27] MEDS ORDERED: IOPAMIDOL-370 125ML BTL INJ ONE (11:17)
[2021-08-27] MEDS ORDERED: RX INFO: IV CONTRAST WAS GIVEN 1 EACH MISC MISCELLANE PRN (11:26)
--- NOTE | 2021-08-27 11:26 | P.CRDCN ---
History of Present Illness History of present illness: This is a 40-year-old female with a past medical history significant for coronary artery disease with previous stenting, hypertension, hyperlipidemia, congestive heart failure, and LV thrombus on anticoagulation with Eliquis, type 2 diabetes. Patient recently seen by a case management associate at [facility], She follows with her PCP Dr. Sena, she has not follow up with Dr. Davila since 2019. We have been asked to see the patient in consultation for chest pain elevated troponin and hypertensive urgency. Patient presented to the emergency department with chest pressure. It began yesterday. Located on the left side of her chest. Radiating to her left arm and shoulder. She had associated shortness of breath, nausea and diaphoresis. Pain did have some alleviation of the pain better with nitroglycerin. She denies any symptoms of orthopnea or PND. She does have significant bilateral lower extremity swelling, she states that she's been taking diuretics and has had multiple adjustments to her diuretics and no improvement in her lower extremity swelling. Currently her chest pain has resolved. She is lying comfortably in bed. Patient states she recently went to follow-up with cardiology at [facility] she states she was sent there by her PCP Dr. Sena and underwent workup for possible defibrillator secondary to cardiomyopathy, however echo was obtained at [facility] and patient had an improvement in her EF of 5055%. DIAGNOSTICS * EKG reveals sinus tachycardia, HR 121, left atrial enlargement, incomplete RBBB, poor R wave progression, no acute ST-T wave abnormalities to suggest ischemia. Priro EKG similar. * Chest xray mild pulmonary vascular congestion * Laboratory data: Troponin 0.05, 0.11, 0.46, WBC 7.3, hemoglobin 14.5, platelets 180, sodium 137, potassium 4.4, BUN 19, serum creatinine 0.9, magnesium 1.7, proBNP 3700, triglycerides 11, cholesterol 58, LDL 102 * Current home cardiac medications include Eliquis 5 mg twice a day, aspirin 81mg daily, atorvastatin 80 mg nightly, Plavix 75 mg daily, Jardiance 25mg daily, Torsemide 20mg daily, Zetia 10mg daily,Coreg 25mg BID, metoprolol succinate 100mg daily, amlodipine 10mg daily , hydralazine 100mg Daily, los skyla 100 mg daily, spironolactone 25mg daily * Most recent echocardiogram we have on file 05/28/2021- 3540%, apical thrombus noted, apex hypokinesis, small generalized pericardial effusion * Cardiac catheterization history: * 10/05/20 revealed patent stent in LAD and left circumflex, critical sten osis in the first diagonal branch and the fourth obtuse marginal branch without progression compared to 2019. * November 2019 underwent cardiac catheterization in revealing patent stent to the LAD and circumflex * April 2019 with stent placement to LAD REVIEW OF SYSTEMS: CONSTITUTIONAL: Denies fever or chills. HEENT: Denies blurred vision, vision changes, or eye pain. Denies hemoptysis CARDIOVASCULAR: + chest pain. Denies orthopnea. Denies PND. Denies palpitations RESPIRATORY: + shortness of breath. GASTROINTESTINAL: Denies abdominal pain. + nausea Denies vomiting. HEMATOLOGIC: Denies bleeding disorders. GENITOURINARY: Denies any blood in urine. SKIN: Denies pruitis. Denies rash. PHYSICAL EXAM: VITAL SIGNS: Reviewed. GENERAL: In no acute distress. HEENT: Head is normocephalic. Pupils are equal, round. Sclerae anicteric. Mucous membranes of the mouth are moist. Neck supple. No JVD LUNGS: Respirations even and unlabored. Lungs diminished bilaterally HEART: Regular rate and rhythm. S1 and S2 heard. Systolic ejection murmur at apex. ABDOMEN: Soft. Nondistended. Nontender. EXTREMITIES: Normal range of motion. No clubbing or cyanosis. Peripheral pulses intact. 3+ bilateral lower extremity edema NEUROLOGIC: Awake and alert. Oriented x 3. ASSESSMENT: NSTEMI Worsening lower extremity edema without improvement with diuretics, possible amlodipine side effect Chronic heart failure, patient states her EF 50-55% [facility], our last Echo 06/08 35-40%. Coronary artery disease with previous PCI to LAD and circumflex History of LV thrombus, on anticoagulation with Eliquis Hypertension Hyperlipidemia Morbid obesity Anxiety Depression Bipolar disorder PLAN: Recommend cardiac catheterization at this time. Patient is agreeable. Obtain 2D echocardiogram Start IV Heparin Stop metoprolol succinate Continue Carvedilol Stop hydralazine, losartan, amlodipine Start Valsartan 320mg daily Continue Torsemide Monitor I/Os, daily weights renal function and electrolytes I have discussed the risks, benefits and alternative therapies for the above- mentioned procedure and for both sedation/analgesia as well as necessary blood product administration, if indicated, as they pertain to this patient. The patient has indicated understanding and acceptance of the risks and procedures discussed. Questions have been answered appropriately and she is agreeable to move forward with the above-stated procedure. Further recommendations based on clinic course Nurse practitioner note has been reviewed by physician. Signing provider agrees with the documented findings, assessment, and plan of care. Past Medical History Past Medical History: Atrial Fibrillation, Asthma, Coronary Artery Disease (CAD) , Cancer, Heart Failure, Diabetes Mellitus, GERD/Reflux, Hyperlipidemia, Hypertension, Myocardial Infarction (LA), Pulmonary Embolus (PE), Renal Disease, Respiratory Disorder Additional Past Medical History / Comment(s): IDDM type II, cardiomyopathy, multiple MIs, bilateral PEs, childhood leukemia with chemo and radiation, hypomagnesemia, anemia, peptic ulcer, gallstones, nephrolithiasis/pt passed stone on her own, UTIs, anemia, RLS, occasional R calf cramping since dog bite 10/2020, pt states she has had covid twice. Last Myocardial Infarction Date:: 04/2019 History of Any Multi-Drug Resistant Organisms: None Reported Past Surgical History: Section, Heart Catheterization With Stent, Joint Replacement, Tonsillectomy, Tubal Ligation Additional Past Surgical History / Comment(s): Partial R knee replacement, PCI/stents, surgery for PE/radiation. 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 Date of Last Stent Placement:: 05/08/19 Past Psychological History: Anxiety, Bipolar, Depression, Schizophrenia Additional Psychological History / Comment(s): Pt resides with her francoe and 15 yr old son. She does not drive, her francoe drives, otherwise pt is independent. Smoking Status: Former smoker Past Alcohol Use History: None Reported Additional Past Alcohol Use History / Comment(s): Pt smoked for a few months in 2010. Past Drug Use History: None Reported Additional Drug Use History / Comment(s): stopped smoking in 2010; only smoked for 4-5 months. - Past Family History Father Family Medical History: Coronary Artery Disease (CAD), Hyperlipidemia, Hypertension Additional Family Medical History / Comment(s): pins in knee, heart stents x 4. Father is Mother Family Medical History: Coronary Artery Disease (CAD), Dementia, Diabetes Mellitus, Musculoskeletal Disorder, Renal Disease Additional Family Medical History / Comment(s): Parkinson's, stents in heart, neuropathy. Medications and Allergies Home Medications Medication Instructions Recorded Confirmed Type Ferrous Sulfate [Iron] 325 mg PO DAILY 07/11/18 08/26/21 History Atorvastatin [Lipitor] 80 mg PO HS #30 tab 12/06/18 08/26/21 Rx Clopidogrel [Plavix] 75 mg PO DAILY #30 tab 12/06/18 08/26/21 Rx Semaglutide [Ozempic] 0.5 mg SQ MO@2100 11/19/19 08/26/21 History Apixaban [Eliquis] 5 mg PO BID #180 tab 11/21/19 08/26/21 Rx ALPRAZolam [Xanax] 0.5 mg PO BID PRN 06/16/20 08/26/21 History Insulin Glargine,Hum.rec.anlog 40 unit SQ HS 08/07/20 08/26/21 History [Lantus Solostar Pen] rOPINIRole HCL [Requip] 0.25 mg PO HS 02/01/21 08/26/21 History Ezetimibe [Zetia] 10 mg PO DAILY #30 tab 02/02/21 08/26/21 Rx Pantoprazole [Protonix] 40 mg PO BID #60 tab 02/02/21 08/26/21 Rx Sertraline [Zoloft] 50 mg PO DAILY #30 tab 02/02/21 08/26/21 Rx amLODIPine [Norvasc] 10 mg PO DAILY #30 tab 02/02/21 08/26/21 Rx Aspirin EC [Ecotrin Low Dose] 81 mg PO DAILY 03/06/21 08/26/21 History Torsemide [Demadex] 20 mg PO DAILY #30 tab 06/01/21 08/26/21 Rx Empagliflozin [Jardiance] 25 mg PO DAILY 07/29/21 08/26/21 History Losartan Potassium [Cozaar] 100 mg PO DAILY 07/29/21 08/26/21 History Magnesium Oxide [Mag-Ox] 400 mg PO BID 07/29/21 08/26/21 History Metoprolol Succinate (ER) [Toprol 100 mg PO DAILY 07/29/21 08/26/21 History Xl] Spironolactone 25 mg PO DAILY 07/29/21 08/26/21 History hydrALAZINE HCL [Apresoline] 100 mg PO DAILY 07/29/21 08/26/21 History Carvedilol [Coreg] 25 mg PO BID 08/26/21 08/26/21 History Cyanocobalamin [Vitamin B-12] 500 mcg PO DAILY 08/26/21 08/26/21 History Montelukast Sodium [Singulair] 10 mg PO HS 08/26/21 08/26/21 History Multivitamin/Iron/Folic Acid 1 tab PO DAILY 08/26/21 08/26/21 History [Centrum Complete Multivit Tab] Nitroglycerin 0.4MG/Hr Patch 1 patch TRANSDERM DAILY PRN 08/26/21 08/26/21 History [Nitro-Dur 0.4MG/Hr Patch] predniSONE 10 mg PO DAILY 08/26/21 08/26/21 History Allergies Allergy/AdvReac Type Severity Reaction Status Date / Time cephalexin [From Keflex] Allergy Rash/Hives Verified 08/26/21 17:14 codeine Allergy Rash/Hives Verified 08/26/21 17:14 Iodine and Iodide Containing Allergy Rash/Hives Verified 08/26/21 17:14 Produc Penicillins Allergy Anaphylaxis Verified 08/26/21 17:14 tramadol Allergy Rash/Hives Verified 08/26/21 17:14 Physical Exam Vitals: Vital Signs Temp Pulse Pulse Resp BP BP Pulse Ox 08/27/21 04:00 96.9 F L 69 18 120/81 96 08/27/21 02:00 90 16 08/27/21 00:00 97.6 F 90 16 119/78 93 L 08/26/21 22:02 97.6 F 96 18 121/82 98 08/26/21 20:00 96 18 08/26/21 18:44 97.8 F 96 18 134/96 96 08/26/21 17:05 108 H 18 209/157 99 08/26/21 15:12 98.7 F 129 H 18 212/138 96 Intake and Output 08/26/21 08/27/21 08/27/21 22:59 06:59 14:59 Other: Voiding Method Toilet Toilet # Voids 1 3 Weight 106.141 kg Results 08/26/21 15:38 08/26/21 15:38 Cardiac Enzymes 08/26/21 08/26/21 08/26/21 Range/Units 15:38 15:38 18:10 AST 18 (14-36) U/L Troponin I 0.051 H* 0.111 H* (0.000-0.034) ng/mL 08/26/21 Range/Units 22:04 AST (14-36) U/L Troponin I 0.463 H* (0.000-0.034) ng/mL Coagulation 08/26/21 Range/Units 15:38 PT 12.0 (9.0-12.0) sec APTT 24.0 (22.0-30.0) sec Lipids 08/26/21 Range/Units 15:38 Triglycerides 101.00 (0.00-149.00) mg/dL Cholesterol 158.00 (0.00-200.00) mg/dL HDL Cholesterol 35.80 L (40.00-60.00) mg/dL Cholesterol/HDL Ratio 4.41 Ratio CBC 08/26/21 Range/Units 15:38 WBC 7.3 (3.8-10.6) k/uL RBC 4.95 (3.80-5.40) m/uL Hgb 14.5 (11.4-16.0) gm/dL Hct 44.9 (34.0-46.0) % Plt Count 180 (150-450) k/uL Comprehensive Metabolic Panel 08/26/21 Range/Units 15:38 Sodium 137 (137-145) mmol/L Potassium 4.4 (3.5-5.1) mmol/L Chloride 104 (98-107) mmol/L Carbon Dioxide 23 (22-30) mmol/L BUN 19 H (7-17) mg/dL Creatinine 0.98 (0.52-1.04) mg/dL Glucose 287 H (74-99) mg/dL Calcium 9.2 (8.4-10.2) mg/dL AST 18 (14-36) U/L ALT 14 (4-34) U/L Alkaline Phosphatase 69 (38-126) U/L Total Protein 6.8 (6.3-8.2) g/dL Albumin 4.2 (3.5-5.0) g/dL Current Medications Generic Name Dose Route Start Last Admin Trade Name Freq PRN Reason Stop Dose Admin Alprazolam 0.5 mg 08/26/21 18:19 08/26/21 21:04 Alprazolam 0.5 Mg Tab PO 0.5 mg BID PRN Administration Anxiety Amlodipine Besylate 10 mg 08/26/21 18:30 08/26/21 21:13 Amlodipine 10 Mg Tab PO Not Given DAILY [facility] Apixaban 5 mg 08/26/21 21:00 08/26/21 21:06 Apixaban 5 Mg Tab PO 5 mg BID [facility] Administration Protocol Aspirin 325 mg 08/27/21 09:00 Aspirin 325 Mg Tab PO DAILY [facility] Aspirin 81 mg 08/26/21 18:30 08/26/21 21:15 Aspirin 81 Mg PO Not Given DAILY [facility] Atorvastatin Calcium 80 mg 08/26/21 21:00 08/26/21 21:06 Atorvastatin 80 Mg Tab PO 80 mg HS [facility] Administration Carvedilol 25 mg 08/26/21 21:00 08/26/21 21:05 Carvedilol 12.5 Mg Tab PO 25 mg BID [facility] Administration Clopidogrel Bisulfate 75 mg 08/26/21 18:30 08/26/21 21:08 Clopidogrel 75 Mg Tab PO 75 mg DAILY [facility] Administration Ezetimibe 10 mg 08/27/21 09:00 Ezetimibe 10 Mg Tab PO DAILY [facility] Ferrous Sulfate 325 mg 08/27/21 09:00 Ferrous Sulfate 325 Mg Tab PO DAILY [facility] Hydralazine HCl 100 mg 08/26/21 18:30 08/26/21 21:15 Hydralazine Hcl 50 Mg Tab PO Not Given DAILY [facility] Insulin Aspart 0 unit 08/26/21 22:30 08/27/21 06:30 Insulin Aspart (Novolog) 100 Unit/Ml Vial SQ Not Given [facility] Protocol Insulin Detemir 40 unit 08/26/21 21:00 08/26/21 21:05 Insulin Detemir (Levemir) 100 Unit/Ml Syr SQ 40 unit HS [facility] Administration Losartan Potassium 100 mg 08/26/21 18:30 08/26/21 21:15 Losartan 50 Mg Tab PO Not Given DAILY [facility] Magnesium Oxide 400 mg 08/26/21 21:00 08/26/21 21:04 Magnesium Oxide 400 Mg Tab PO 400 mg BID [facility] Administration Metoprolol Succinate 100 mg 08/26/21 18:30 08/26/21 21:05 Metoprolol Succinate (Er) 100 Mg Tab.Er.24h PO 100 mg DAILY [facility] Administration Montelukast Sodium 10 mg 08/26/21 21:00 08/26/21 21:07 Montelukast 10 Mg Tab PO 10 mg HS [facility] Administration Nitroglycerin 0.4 mg 08/26/21 15:20 Nitroglycerin Sl Tabs 0.4 Mg Tab SUBLINGUAL Q5M PRN Chest Pain Nitroglycerin 0.4 mg 08/26/21 17:25 Nitroglycerin Sl Tabs 0.4 Mg Tab SUBLINGUAL Q5M PRN Chest Pain Nitroglycerin 1 inch 08/26/21 18:00 08/27/21 05:51 Nitroglycerin Oint 1 Inch/Gm Packet TOPICAL 1 inch Q6HR [facility] Administration Non-Formulary Medication 25 mg 08/27/21 09:00 Empagliflozin [Jardiance] PO DAILY [facility] Pantoprazole Sodium 40 mg 08/26/21 21:00 08/26/21 21:07 Pantoprazole 40 Mg Tablet PO 40 mg BID [facility] Administration Prednisone 10 mg 08/27/21 09:00 Prednisone 10 Mg Tab PO DAILY [facility] Ropinirole HCl 0.25 mg 08/26/21 21:00 08/26/21 21:07 Ropinirole Hcl 0.25 Mg Tab PO 0.25 mg HS [facility] Administration Sertraline HCl 50 mg 08/27/21 09:00 Sertraline 50 Mg Tab PO DAILY [facility] Spironolactone 25 mg 08/26/21 18:30 08/26/21 21:07 Spironolactone 25 Mg Tab PO Not Given DAILY [facility] Torsemide 20 mg 08/26/21 18:30 08/26/21 21:10 Torsemide 20 Mg Tab PO Not Given DAILY [facility] Intake and Output 08/26/21 08/27/21 08/27/21 22:59 06:59 14:59 Other: Voiding Method Toilet Toilet # Voids 1 3 Weight 106.141 kg 08/26/21 15:38 08/26/21 15:38
[2021-08-27] MEDS ORDERED: SODIUM CHLORIDE 0.9% 1,000 ML IV SCH (11:30)
--- NOTE | 2021-08-27 11:33 | P.CARDCATH ---
Date of Procedure: 08/27/21 Description of Procedure: Cardiac Catheterization: The patient is a 40-year-old female with a known history of status post multivessel stenting, history of apical thrombus and ischemic cardiomyopathy who presented with symptoms of chest discomfort with mild troponin elevation. Her blood pressure was quite elevated on presentations. Recommendations were made regarding cardiac catheterization, the risks and the complications were discussed with the patient who is in full understanding and agreement. Procedure Description: Patient was brought to analytical laboratory technician in fasting semi-sedated state after receiving Fentanyl and Benadryl achieiving moderate conscious sedated state. Using Xylocaine Anesthesia and Seldinger technique, a 6-Syrian sheath was introduced in the left radial artery . Subsequently, selective coronary angiography performed using a 5-Syrian 4 bend Romelia catheter. Multiple views of the coronary artery including hemiaxial views were obtained. Following that, catheter and sheath were removed. Hemostasis was obtained with deployment of TR band . There was no immediate complication. Patient was returned to room in stable condition. Of note, the patient received a total of 5000 units of intravenous heparin as well as intra- arterial verapamil. There was no immediate complications. Findings: Left main: This is a large size vessel, bifurcating into LAD and left circumflex, left main is no high-grade stenosis. LAD: This is a large size vessel, reaching to the apex. The proximal LAD at the takeoff of the first septal corporate paralegal has a 30% plaque involving the ostium of the septal corporate paralegal. The mid stented segment is patent with no significant in-stent restenosis. There is a 40-50% stenosis distal to the stent and an 80- 90% stenosis. Intimal disease was noted throughout the vessel. Left circumflex: This is a nondominant vessel, large in caliber, giving rise to a large branching obtuse marginal branch. The stented segment in the obtuse marginal branch are patent. The distal branch has a 99% stenosis in the ostium, unchanged compared with images obtained in 2020. RCA: This is a large dominant vessel bifurcating distally to PDA and PLV. The RCA has mild disease in the distal segment of 10% without any evidence of high- grade stenosis. Conclusion: 1. Patent stent in the LAD and the left circumflex 2. Significant disease in the apical segment of the LAD patent the distal branch point of the obtuse marginal branch with no progression of disease compared to the last images 3. Mild disease in the RCA 4. Right dominance Recommendations: I would recommend continuing medical therapy with aggressive treatment. Her mild troponin elevation could be related to her hypertension or a plaque rupture. I do not see significant progression of disease or indications for percutaneous revascularization at this time. The findings and recommendations were discussed with the patient and her family, they are in full understanding and agreement. Duration of sedation is 20 minutes.
[2021-08-27 11:49] LABS: Glucose,Whole Blood 133 mg/dL (75-99)
[2021-08-27] MEDS: NON FORMULARY DRUG (Empagliflozin [Jardiance] 25 MG Tablet) PO SCH (11:59)
[2021-08-27] MEDS: SODIUM CHLORIDE 0.9% 1,000 ML in EMPTY BAG 1 BAG IV SCH ×2 (12:00→16:38)
[2021-08-27 16:24] LABS: Glucose,Whole Blood 317 mg/dL (75-99)
--- NOTE | 2021-08-27 18:45 | PN ---
PROGRESS NOTE CHIEF COMPLAINT: Chest pain, uncontrolled hypertension, possible myocardial infarction and congestive heart failure. HISTORY OF PRESENT ILLNESS: This lady is still very short of breath. Blood pressure is still slightly elevated. She is going for a cardiac cath today. PHYSICAL EXAMINATION: Her chest is clear. The cardiac exam is normal. The abdomen is soft and nontender. IMPRESSION: 1. Uncontrolled hypertension. 2. Angina pectoris. 3. Coronary artery disease. 4. Possible myocardial infarction. 5. Congestive heart failure. PLAN: Cardiac cath later today. MMODL / IJN: [id number] /
[2021-08-27 20:06] LABS: Glucose,Whole Blood 281 mg/dL (75-99)
[2021-08-27] MEDS: MONTELUKAST 10 MG TAB PO SCH (20:06)
[2021-08-27] MEDS: ATORVASTATIN 80 MG TAB PO SCH (20:06)
[2021-08-27] MEDS: INSULIN DETEMIR (LEVEMIR) 100 UNIT/ML SYR SQ SCH (20:08)
[2021-08-28 06:31] LABS: Glucose,Whole Blood 264 mg/dL (75-99)
[2021-08-28] MEDS: ALPRAZolam 0.5 MG TAB PO PRN (06:32)
[2021-08-28] MEDS: INSULIN ASPART (NovoLOG) 100 UNIT/ML VIAL SQ SCH ×4 (06:32→20:50)
[2021-08-28] MEDS ORDERED: HEPARIN SODIUM,PORCINE 2,500 UNIT in SODIUM CHLORIDE 0.9% 250 ML IRRIGATION PRN (07:00)
[2021-08-28] MEDS ORDERED: HEPARIN SODIUM,PORCINE 10,000 UNIT in SODIUM CHLORIDE 0.9% 1,000 ML IRRIGATION PRN (07:00)
[2021-08-28] MEDS: SODIUM CHLORIDE 0.9% 1,000 ML in EMPTY BAG 1 BAG IV SCH ×2 (10:21→12:20)
[2021-08-28] MEDS: NON FORMULARY DRUG (Empagliflozin [Jardiance] 25 MG Tablet) PO SCH (10:22)
[2021-08-28] MEDS: CLOPIDOGREL 75 MG TAB PO SCH (10:30)
[2021-08-28] MEDS: carvediloL 12.5 MG TAB PO SCH ×2 (10:30→20:48)
[2021-08-28] MEDS: ASPIRIN 81 MG PO SCH (10:30)
[2021-08-28] MEDS: EZETIMIBE 10 MG TAB PO SCH (10:30)
[2021-08-28] MEDS: MAGNESIUM OXIDE 400 MG TAB PO SCH ×2 (10:31→20:48)
[2021-08-28] MEDS: PANTOPRAZOLE 40 MG TABLET PO SCH ×2 (10:31→20:49)
[2021-08-28] MEDS: FERROUS SULFATE 325 MG TAB PO SCH (10:31)
[2021-08-28] MEDS: SERTRALINE 50 MG TAB PO SCH (10:31)
[2021-08-28] MEDS: SPIRONOLACTONE 25 MG TAB PO SCH (10:31)
[2021-08-28] MEDS: predniSONE 10 MG TAB PO SCH (10:31)
[2021-08-28] MEDS: TORSEMIDE 20 MG TAB PO SCH (10:38)
[2021-08-28] MEDS: VALSARTAN 160 MG TAB PO SCH (10:38)
[2021-08-28 10:58] LABS: Basophils % (A) 0 %; Eosinophils % (A) 0 %; HCT 44.7 % (34.0-46.0); HGB 13.7 gm/dL (11.4-16.0); Hypochromasia Marked; Lymphocytes # (A) 0.9 k/uL (1.0-4.8); Lymphocytes % (A) 15 %; MCH 28.3 pg (25.0-35.0); MCHC 30.6 g/dL (31.0-37.0); MCV 92.5 fL (80.0-100.0); Monocytes # (A) 0.3 k/uL (0-1.0); Monocytes % (A) 5 %; Neutrophils # (A) 4.6 k/uL (1.3-7.7); Neutrophils % (A) 77 %; Platelet Count 210 k/uL (150-450); RBC 4.83 m/uL (3.80-5.40); RDW 15.3 % (11.5-15.5)
[2021-08-28 11:13] LABS: Calcium 8.8 mg/dL (8.4-10.2); Potassium 4.2 mmol/L (3.5-5.1)
--- NOTE | 2021-08-28 11:16 | P.PN ---
Subjective Progress Note Date: 08/28/21 The patient is a 40-year-old female with multiple comorbid conditions, who presented to the hospital with chest pain and hypertensive urgency. She underwent coronary angiogram yesterday with Dr. Everett with intermediate disease throughout the LAD, and an 80-90% lesion distally. Left circumflex shows chromosomal disorders counselor neida 99% lesion in the distal OM1, below her stent. RCA shows no significant disease. Her blood pressure medications were adjusted yesterday. It is slowly improving. The patient states she did well overnight. She is concerned about her lower extremity edema, where was emphasized that it will take time for side effects the amlodipine to wear off. No chest pain or chest pressure. No shortness of breath. GENERAL: Well-appearing, well-nourished and in no acute distress. NECK: Supple without JVD or thyromegaly. LUNGS: Breath sounds clear to auscultation bilaterally. Respiration equal and unlabored. Rhonchi noted in the left lower lobe HEART: Regular rate and rhythm without murmurs, rubs or gallops. S1 and S2 heard. EXTREMITIES: Normal range of motion. +2 lower extremity edema. No clubbing or cyanosis. Peripheral pulses intact. Left radial site is no significant bruising. +2 pulse. VITALS: BP 145/93, pulse 76, respiratory rate 18, temp 97.8F, SpO2 94% on room air TELEMETRY: Sinus rhythm overnight LABS: WBC 6.0, hemoglobin 13.7, hematocrit 44.7, platelet 210 IMPRESSION: Non-ST elevated myocardial infarction, elevated troponins, intermediate disease on heart cath Chronic heart failure, patient reports EF of 50-55 at the [facility] June 2021 Coronary artery disease, intermediate multivessel, recommend medical management History of LV thrombus, on [place] Hypertension Hyperlipidemia Morbid obesity PLAN: Awaiting BMP after starting ARB Pressures improving on her current regimen Further recommendations to be based upon clinical course I am dictating on behalf of Dr Ty Davila's history/physical and assessment/plan. Objective - Vital Signs Vital signs: Vital Signs Temp 97.8 F 08/28/21 04:00 Pulse 76 08/28/21 04:00 Resp 18 08/28/21 04:00 BP 145/93 08/28/21 04:00 Pulse Ox 94 L 08/28/21 04:00 FiO2 Intake & Output 08/27/21 08/28/21 08/28/21 18:59 06:59 18:59 Intake Total 50 Balance 50 Intake: IV 50 Other: Voiding Method Toilet Toilet # Voids 4 # Bowel Movements 0 - Labs CBC & Chem 7: 08/28/21 10:16 08/26/21 15:38 Labs: Abnormal Lab Results - Last 24 Hours (Table) 08/27/21 08/27/21 08/27/21 Range/Units 11:48 16:23 20:03 POC Glucose (mg/dL) 133 H 317 H 281 H (75-99) mg/dL 08/28/21 Range/Units 06:29 POC Glucose (mg/dL) 264 H (75-99) mg/dL
[2021-08-28 11:27] LABS: INR 1.1 (<1.2)
[2021-08-28 12:09] LABS: Glucose,Whole Blood 304 mg/dL (75-99)
[2021-08-28 16:44] LABS: Glucose,Whole Blood 281 mg/dL (75-99)
--- NOTE | 2021-08-28 17:24 | PN ---
PROGRESS NOTE CHIEF COMPLAINT: Malignant hypertension and congestive heart failure. HISTORY OF PRESENT ILLNESS: This lady is feeling a lot better. She is being diuresed. Shortness of breath is improving. She has had no chest pain. PHYSICAL EXAMINATION: Chest is clear. Cardiac exam is normal. Abdomen is soft. IMPRESSION: 1. Malignant hypertension. 2. Acute congestive heart failure. 3. Chronic congestive heart failure. 4. Atherosclerotic cardiomyopathy. 5. Coronary artery disease. 6. Uncontrolled hypertension. PLAN: Continue with diuresis. Cardiology plans on keeping her for another day or two. MMODL / IJN: [id number] /
[2021-08-28 20:33] LABS: Glucose,Whole Blood 249 mg/dL (75-99)
[2021-08-28] MEDS: ATORVASTATIN 80 MG TAB PO SCH (20:48)
[2021-08-28] MEDS: MONTELUKAST 10 MG TAB PO SCH (20:49)
[2021-08-28] MEDS: INSULIN DETEMIR (LEVEMIR) 100 UNIT/ML SYR SQ SCH (20:49)
[2021-08-29 03:53] LABS: Glucose,Whole Blood 243 mg/dL (75-99)
[2021-08-29] MEDS: SODIUM CHLORIDE 0.9% 1,000 ML in EMPTY BAG 1 BAG IV SCH ×2 (04:45→19:57)
[2021-08-29 06:24] LABS: Glucose,Whole Blood 196 mg/dL (75-99)
[2021-08-29] MEDS: INSULIN ASPART (NovoLOG) 100 UNIT/ML VIAL SQ SCH ×4 (06:34→20:28)
[2021-08-29] MEDS: ONDANSETRON 4 MG/2 ML VIAL IVP PRN ×2 (06:36→10:50)
[2021-08-29] MEDS: FERROUS SULFATE 325 MG TAB PO SCH (08:42)
[2021-08-29] MEDS: ASPIRIN 81 MG PO SCH (08:42)
[2021-08-29] MEDS: carvediloL 12.5 MG TAB PO SCH ×2 (08:42→20:27)
[2021-08-29] MEDS: MAGNESIUM OXIDE 400 MG TAB PO SCH ×2 (08:42→20:27)
[2021-08-29] MEDS: SPIRONOLACTONE 25 MG TAB PO SCH (08:42)
[2021-08-29] MEDS: CLOPIDOGREL 75 MG TAB PO SCH (08:42)
[2021-08-29] MEDS: SERTRALINE 50 MG TAB PO SCH (08:42)
[2021-08-29] MEDS: EZETIMIBE 10 MG TAB PO SCH (08:42)
[2021-08-29] MEDS: PANTOPRAZOLE 40 MG TABLET PO SCH ×2 (08:43→20:27)
[2021-08-29] MEDS: NON FORMULARY DRUG (Empagliflozin [Jardiance] 25 MG Tablet) PO SCH (08:43)
[2021-08-29] MEDS: predniSONE 10 MG TAB PO SCH (08:43)
[2021-08-29] MEDS: VALSARTAN 160 MG TAB PO SCH (08:44)
[2021-08-29 09:13] LABS: Calcium 8.7 mg/dL (8.4-10.2)
[2021-08-29] MEDS: TORSEMIDE 20 MG TAB PO SCH (10:50)
--- NOTE | 2021-08-29 11:27 | P.PN ---
Subjective Progress Note Date: 08/29/21 The patient is a 40-year-old female with multiple comorbid conditions, who presented to the hospital with chest pain and hypertensive urgency. She underwent coronary angiogram yesterday with Dr. Everett with intermediate disease throughout the LAD, and an 80-90% lesion distally. Left circumflex shows manager [employer] neida 99% lesion in the distal OM1, below her stent. RCA shows no significant disease. Blood pressure continues to do well over the last 24 hours. The patient states she did well overnight. She is concerned about her lower extremity edema. Recommend compression therapy. No chest pain or chest pressure. No shortness of breath. GENERAL: Well-appearing, well-nourished and in no acute distress. NECK: Supple without JVD or thyromegaly. LUNGS: Breath sounds clear to auscultation bilaterally. Respiration equal and unlabored. Rhonchi noted in the left lower lobe HEART: Regular rate and rhythm without murmurs, rubs or gallops. S1 and S2 heard. EXTREMITIES: Normal range of motion. +2 lower extremity edema. No clubbing or cyanosis. Peripheral pulses intact. VITALS: BP 134/78, pulse 65, respiratory rate 16, SpO2 95% on room air TELEMETRY: Sinus rhythm overnight LABS: Sodium 138, potassium 4.0, BUN 43, creatinine 1.56 IMPRESSION: Non-ST elevated myocardial infarction, elevated troponins, intermediate disease on heart cath Chronic heart failure, patient reports EF of 50-55 at the [facility] in June 2021 Coronary artery disease, intermediate multivessel, recommend medical management History of LV thrombus, on Eliquis Hypertension Hyperlipidemia Morbid obesity Acute kidney injury, creatinine 1.56 after cath and switching to valsartan PLAN: Continue current medication regimen Recommend discontinuing fluid restriction with increase in creatinine level Recommend lower extremity compression therapy with either compression pumps or compression socks No further recommendations from the cardiac standpoint I am dictating on behalf of Dr Ty Davila's history/physical and assessment/plan. Objective - Vital Signs Vital signs: Vital Signs Temp 97.4 F L 08/29/21 03:38 Pulse 65 08/29/21 08:00 Resp 16 08/29/21 08:00 BP 134/78 08/29/21 08:00 Pulse Ox 95 08/29/21 08:00 FiO2 Intake & Output 08/28/21 08/29/2108/29/22 18:59 06:59 18:59 Intake Total 360 Balance 360 Intake: Oral 360 Other: Voiding Method Toilet Toilet Toilet - Labs CBC & Chem 7: 08/28/21 10:16 08/29/21 08:51 Labs: Abnormal Lab Results - Last 24 Hours (Table) 08/28/21 08/28/21 08/28/21 Range/Units 11:58 16:39 20:22 BUN (7-17) mg/dL Creatinine (0.52-1.04) mg/dL Glucose (74-99) mg/dL POC Glucose (mg/dL) 304 H 281 H 249 H (75-99) mg/dL 08/29/21 08/29/21 08/29/21 Range/Units 03:39 06:06 08:51 BUN 43 H (7-17) mg/dL Creatinine 1.56 H (0.52-1.04) mg/dL Glucose 166 H (74-99) mg/dL POC Glucose (mg/dL) 243 H 196 H (75-99) mg/dL
[2021-08-29 11:59] LABS: Glucose,Whole Blood 151 mg/dL (75-99)
[2021-08-29] MEDS ORDERED: LEVOFLOXACIN 500 MG TAB PO SCH (12:30)
--- NOTE | 2021-08-29 15:03 | PN ---
PROGRESS NOTE CHIEF COMPLAINT: Hypertension and congestive heart failure. HISTORY OF PRESENT ILLNESS: This lady is not feeling well at the present time. She is a little bit nauseated. She also is complaining of some itching and pain in the lower legs. PHYSICAL EXAMINATION: Her blood pressure is low right now at 88 systolic lead. Chest demonstrates decreased breath sounds at the bases with scattered rales. Abdomen is soft. Extremities are somewhat edematous about 2+. She also has an erythematous macular rash on the lower legs and also some tenderness. This could represent cellulitis. It is difficult to say for sure. IMPRESSION: 1. Uncontrolled hypertension. 2. Congestive heart failure. 3. Coronary artery disease. 4. Cardiomyopathy. 5. Obesity. 6. Rash in the lower extremities. PLAN: Start Levaquin 500 mg once a day orally and hydrocortisone cream to the lower extremities. They will also be wrapped with Ryan wraps. [email or web address] / SHERIFN: [id number] /
[2021-08-29] MEDS: TRIAMCINOLONE 0.1% CREAM 80 GM TUBE TOPICAL SCH ×2 (16:31→22:15)
[2021-08-29 16:47] LABS: Glucose,Whole Blood 225 mg/dL (75-99)
[2021-08-29] MEDS: MONTELUKAST 10 MG TAB PO SCH (20:27)
[2021-08-29] MEDS: ATORVASTATIN 80 MG TAB PO SCH (20:27)
[2021-08-29 20:32] LABS: Glucose,Whole Blood 267 mg/dL (75-99)
[2021-08-29] MEDS: INSULIN DETEMIR (LEVEMIR) 100 UNIT/ML SYR SQ SCH (20:39)
[2021-08-29 23:39] VITALS: RESP 16
[2021-08-30 03:56] VITALS: TEMP 98.2
[2021-08-30] MEDS: ONDANSETRON 4 MG/2 ML VIAL IVP PRN (04:49)
[2021-08-30 05:58] LABS: Glucose,Whole Blood 160 mg/dL (75-99)
[2021-08-30] MEDS: INSULIN ASPART (NovoLOG) 100 UNIT/ML VIAL SQ SCH ×3 (06:20→16:42)
[2021-08-30] MEDS: SODIUM CHLORIDE 0.9% 1,000 ML in EMPTY BAG 1 BAG IV SCH ×2 (06:52→16:37)
[2021-08-30] MEDS: CLOPIDOGREL 75 MG TAB PO SCH (08:36)
[2021-08-30] MEDS: FERROUS SULFATE 325 MG TAB PO SCH (08:36)
[2021-08-30] MEDS: ASPIRIN 81 MG PO SCH (08:36)
[2021-08-30] MEDS: predniSONE 10 MG TAB PO SCH (08:36)
[2021-08-30] MEDS: MAGNESIUM OXIDE 400 MG TAB PO SCH (08:36)
[2021-08-30] MEDS: PANTOPRAZOLE 40 MG TABLET PO SCH (08:36)
[2021-08-30] MEDS: SPIRONOLACTONE 25 MG TAB PO SCH (08:36)
[2021-08-30] MEDS: carvediloL 12.5 MG TAB PO SCH (08:36)
[2021-08-30] MEDS: EZETIMIBE 10 MG TAB PO SCH (08:36)
[2021-08-30] MEDS: SERTRALINE 50 MG TAB PO SCH (08:36)
[2021-08-30] MEDS: VALSARTAN 160 MG TAB PO SCH (08:37)
[2021-08-30] MEDS: TORSEMIDE 20 MG TAB PO SCH (08:37)
[2021-08-30] MEDS ORDERED: APIXABAN 5 MG TAB PO SCH (11:00)
--- NOTE | 2021-08-30 11:15 | P.PN ---
Subjective Progress Note Date: 08/30/21 HISTORY OF PRESENT ILLNESS: This is a 40-year-old female with a past medical history significant for coronary artery disease with previous stenting, hypertension, hyperlipidemia, co ngestive heart failure, and LV thrombus on anticoagulation with Eliquis, type 2 diabetes. Patient recently seen by a survey research teacher at [facility], She follows with her PCP Dr. Sena, she has not follow up with Dr. Davila since 2019. We have been asked to see the patient in consultation for chest pain elevated troponin and hypertensive urgency. Patient presented to the emergency department with chest pressure. It began yesterday. Located on the left side of her chest. Radiating to her left arm and shoulder. She had associated shortness of breath, nausea and diaphoresis. Pain did have some alleviation of the pain better with nitroglycerin. She denies any symptoms of orthopnea or PND. She does have significant bilateral lower extremity swelling, she states that she's been taking diuretics and has had multiple adjustments to her diuretics and no improvement in her lower extremity swelling. Currently her chest pain has resolved. She is lying comfortably in bed. Patient states she recently went to follow-up with cardiology at [facility] she states she was sent there by her PCP Dr. Sena and underwent workup for possible defibrillator secondary to cardiomyopathy, however echo was obtained at [facility] and patient had an improvement in her EF of 5055%. DIAGNOSTICS * EKG reveals sinus tachycardia, HR 121, left atrial enlargement, incomplete RBBB, poor R wave progression, no acute ST-T wave abnormalities to suggest ischemia. Priro EKG similar. * Chest xray mild pulmonary vascular congestion * Laboratory data: Troponin 0.05, 0.11, 0.46, WBC 7.3, hemoglobin 14.5, jennifer telets 180, sodium 137, potassium 4.4, BUN 19, serum creatinine 0.9, magnesium 1.7, proBNP 3700, triglycerides 11, cholesterol 58, LDL 102 * Current home cardiac medications include Eliquis 5 mg twice a day, aspirin 81mg daily, atorvastatin 80 mg nightly, Plavix 75 mg daily, Jardiance 25mg daily, Torsemide 20mg daily, Zetia 10mg daily,Coreg 25mg BID, metoprolol succinate 100mg daily, amlodipine 10mg daily , hydralazine 100mg Daily, losartan 100 mg daily, spironolactone 25mg daily * Most recent echocardiogram we have on file 05/28/2021- 3540%, apical thrombus noted, apex hypokinesis, small generalized pericardial effusion * Cardiac catheterization history: * 10/05/20 revealed patent stent in LAD and left circumflex, critical stenosis in the first diagonal branch and the fourth obtuse marginal branch without progression compared to 2019. * November 2019 underwent cardiac catheterization in revealing patent stent to the LAD and circumflex * April 2019 with stent placement to LAD 08/30/2021 Patient is s/p cardiac cath revealing patient stent in LAD and left circumflex, significant disease in the apical segment of the LAD patent the distal branch point of the obtuse marginal branch with no progression of disease compared to last images, and mild disease of the RCA. Medical management was recommended. The patient denies chest pain or pressure this morning. Denies SOB. Vital signs are stable. 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 There is a large clot in the apical area. Left atrial enlargement of moderate degree. And mild tricuspid regurgitation PHYSICAL EXAM: VITAL SIGNS: Reviewed. GENERAL: Well-developed in no acute distress. NECK: Supple. No JVD or thyromegaly LUNGS: Respirations even and unlabored. Lungs essentially clear to auscultation bilaterally. HEART: Regular rate and rhythm. S1 and S2 heard. Systolic murmur noted. EXTREMITIES: Normal range of motion. No clubbing or cyanosis. Peripheral pulses intact. 2+ lower extremity edema ASSESSMENT: NSTEMI Worsening lower extremity edema without improvement with diuretics, possible amlodipine side effect Chronic heart failure, patient states her EF 50-55% recently obtained at [facility] in 06/2021, our last Echo 06/08 35-40%. Coronary artery disease with previous PCI to LAD and circumflex History of LV thrombus, on anticoagulation with Eliquis Hypertension Hyperlipidemia Morbid obesity Anxiety Depression Bipolar disorder PLAN: Continue current cardiac medications Resume Eliquis Patient currently stable from a cardiac standpoint Further recommendations pending patient course Nurse practitioner note has been reviewed by physician. Signing provider agrees with the documented findings, assessment, and plan of care. Objective - Vital Signs Vital signs: Vital Signs Temp 98.2 F 08/30/21 03:55 Pulse 60 08/30/21 08:00 Resp 16 08/30/21 08:00 BP 139/82 08/30/21 08:00 Pulse Ox 95 08/30/21 08:00 FiO2 Intake & Output 08/29/21 08/30/21 08/30/21 18:59 06:59 18:59 Intake Total 598 10 Balance 598 10 Intake: IV 10 0.9 10 Oral 598 Other: Voiding Method Toilet Toilet # Voids 1 - Labs CBC & Chem 7: 08/28/21 10:16 08/29/21 08:51 Labs: Abnormal Lab Results - Last 24 Hours (Table) 08/29/21 08/29/21 08/29/21 Range/Units 11:49 16:30 20:09 POC Glucose (mg/dL) 151 H 225 H 267 H (75-99) mg/dL 08/30/21 Range/Units 05:33 POC Glucose (mg/dL) 160 H (75-99) mg/dL
--- NOTE | 2021-08-30 11:49 | CDI ---
Documentation Clarification Form Date: 08/30/2021 11:33:38 AM From: Ruchi MADDIE Calhoun, CCDS Admit Date: 08/26/2021 05:25:00 PM Patient Name: Petty Franklin Visit Number: [id number] Discharge Date: ATTENTION: The Clinical Documentation Specialists (CDI) and [facility] Coding Staff appreciate your assistance in clarifying documentation. Please respond to the clarification below the line at the bottom and electronically sign. The CDI & [facility] Coding staff will review the response and follow-up if needed. Please note: Queries are made part of the Legal Health Record. If you have any questions, please contact the author of this message via ITS. Dr. Ty Davila: Chronic heart failure, EF 50-55% per the patient, recently obtained at [facility] 06/2021, our last ECHO 06/08 EF 35-40%, is documented in the 08/30 Cardiology Progress Note without further specificity of the patient's CHF. Additional information regarding the Type & Acuity of CHF is requested. History/Risk Factors per the 08/26 H/P: CAD, Uncontrolled Hypertension, recently treated at [facility], previous ND, CHF, DM II, CKD and former smoker. History of some type of leukemia & upper GI bleeding from gastric ulcer disease. Numerous heart catheterizations and stents. Appeared overweight. Clinical Indicators: Presented to the ED on 08/26 via EMS with Chest Pain. History of multiple MIs and Atrial Fibrillation, also possibly PE. Admit with Chest Pain, Elevated Troponin, Hypertensive Urgency. 08/26 VS: T 98.7, P 129, R 18 (sob, cough), BP 212/138, PO 96 2Lnc, BMI: 42.8 08/26 LAB: BUN 19, Cr 0.98, Glucose 282, Total Bilirubin 1.5, Troponin 0.051, 0.111, 0.463; 08/26 CXR: Persistent enlarged cardiac shadow, associated with pericardial effusion cannot be excluded. Mild pulmonary vascular congestion. 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 Large clot at the apical area. Left atrial enlargement of moderate degree. Mild tricuspid regurgitation. EF is not documented. Treatment 08/26: Nitropaste, Nitro sl, IV Apresoline 20 mg x1, po Aspirin 81 mg Daily, po Plavix 75 mg Daily, po Toprol Xl 100 mg Daily, po Aldactone 25 mg Daily, po Demadex 20 mg Daily, po Eliquis 5 mg BID, po Lipitor 80 mg scheduled, po Coreg 25 mg BID, Insulin sq, po Mag-Ox 400 mg BID. In your professional opinion, can you please clarify the Acuity and Type of CHF if known? [ ] Acute Systolic Heart Failure [ ] Chronic Systolic Heart Failure [ ] Acute on Chronic Systolic Heart Failure [ ] Acute Diastolic Heart Failure [ ] Chronic Diastolic Heart Failure [ ] Acute on Chronic Diastolic Heart Failure [ ] Acute Systolic & Diastolic Heart Failure [ ] Chronic Systolic & Diastolic Heart Failure [ ] Acute on Chronic Heart Failure Systolic & Diastolic Heart Failure [ ] Other, please specify [ ] Unable to determine (Template Last Revised: April 2020) hypertensive urgency precipitating acute diastolic HF MTDD
[2021-08-30] MEDS ORDERED: LEVOFLOXACIN 250 MG TAB PO SCH (12:00)
[2021-08-30 12:08] LABS: Glucose,Whole Blood 164 mg/dL (75-99)
[2021-08-30] MEDS: NON FORMULARY DRUG (Empagliflozin [Jardiance] 25 MG Tablet) PO SCH (12:48)
[2021-08-30 16:11] LABS: Glucose,Whole Blood 164 mg/dL (75-99)
[2021-08-30] MEDS: TRIAMCINOLONE 0.1% CREAM 80 GM TUBE TOPICAL SCH ×2 (16:44)
[2021-08-30 18:15] VITALS: BP 165/80; PULSE 74
--- NOTE | 2021-08-30 18:23 | DS ---
DISCHARGE SUMMARY CHIEF COMPLAINT: Shortness of breath and hypertension. HISTORY OF PRESENT ILLNESS AND PHYSICAL EXAMINATION: Details of this lady's history and physical can be found in the initial workup. LABORATORY STUDIES: While she was in the hospital while she had laboratory studies, details of which can be found in the laboratory section of her chart. COURSE IN THE HOSPITAL: After admission she was placed on bedrest, her hypertension was treated, and she was diuresed. She continued to improve. Because of elevated troponin, she was taken for a cardiac catheterization, where she was found to have several stenotic areas, but essentially unchanged from her last study. Medications were adjusted. She seemed to be doing well and Cardiology felt that she could be discharged on August 30. She will follow up with us the day after discharge. FINAL DIAGNOSIS: 1. Hypertensive crisis. 2. Acute congestive heart failure. 3. Chronic congestive heart failure. 4. Cardiomyopathy. 5. Type 2 diabetes mellitus. OPERATION: Cardiac catheterization. CONSULTATION: Cardiology. She is improved. MMRODNEY / SHERIFN: [id number] /
== END 2021-08-30 18:23 | disposition home or self-care (01) | DRG 280 ==
LOC: EC 15:08 → 3SCARD 17:25
PROVIDERS: ADMIT Family Medicine; ATTEND Family Medicine
PROC: 4A023N7 Measurement of Cardiac Sampling and Pressure, Left Heart, Percutaneous Approach (ICD-10-PCS; principal; 2021-08-27 10:30)
PROC: B2111ZZ Fluoroscopy of Multiple Coronary Arteries using Low Osmolar Contrast (ICD-10-PCS; principal; 2021-08-27 10:30)
DX: I21.4 Non-ST elevation (NSTEMI) myocardial infarction (principal); I50.33 Acute on chronic diastolic (congestive) heart failure; Z68.41 Body mass index [BMI] 40.0-44.9, adult; I42.9 Cardiomyopathy, unspecified; N17.9 Acute kidney failure, unspecified; I13.0 Hypertensive heart and chronic kidney disease with heart failure and stage 1 through stage 4 chronic kidney disease, or unspecified chronic kidney disease; E66.01 Morbid (severe) obesity due to excess calories; F20.9 Schizophrenia, unspecified; F31.9 Bipolar disorder, unspecified; E78.00 Pure hypercholesterolemia, unspecified; I16.0 Hypertensive urgency; F41.9 Anxiety disorder, unspecified; G25.81 Restless legs syndrome; I11.0 Hypertensive heart disease with heart failure; I25.119 Atherosclerotic heart disease of native coronary artery with unspecified angina pectoris; I25.2 Old myocardial infarction; I45.10 Unspecified right bundle-branch block; I48.91 Unspecified atrial fibrillation; I50.9 Heart failure, unspecified; J45.909 Unspecified asthma, uncomplicated; Z28.310 Unvaccinated for COVID-19; E11.22 Type 2 diabetes mellitus with diabetic chronic kidney disease; N18.9 Chronic kidney disease, unspecified; E78.5 Hyperlipidemia, unspecified; Z79.01 Long term (current) use of anticoagulants; Z79.02 Long term (current) use of antithrombotics/antiplatelets; Z79.4 Long term (current) use of insulin; R21 Rash and other nonspecific skin eruption; T46.1X5A Adverse effect of calcium-channel blockers, initial encounter; Z86.16 Personal history of COVID-19; Z79.82 Long term (current) use of aspirin; Z79.84 Long term (current) use of oral hypoglycemic drugs; Z79.899 Other long term (current) drug therapy; Z82.0 Family history of epilepsy and other diseases of the nervous system; Z82.49 Family history of ischemic heart disease and other diseases of the circulatory system; Z83.3 Family history of diabetes mellitus; Z86.711 Personal history of pulmonary embolism; Z87.891 Personal history of nicotine dependence; Z95.5 Presence of coronary angioplasty implant and graft; Z96.651 Presence of right artificial knee joint; Z90.89 Acquired absence of other organs; Z98.51 Tubal ligation status; Z98.890 Other specified postprocedural states; Z88.1 Allergy status to other antibiotic agents; Z88.5 Allergy status to narcotic agent; Z88.0 Allergy status to penicillin; Z88.8 Allergy status to other drugs, medicaments and biological substances; Z85.6 Personal history of leukemia; Z92.21 Personal history of antineoplastic chemotherapy; Z92.3 Personal history of irradiation; Z98.891 History of uterine scar from previous surgery
CPT/HCPCS: 36415; 71046; 80048; 80053; 80061; 83735; 83880; 84484; 85025; 85610; 85730; 93005; 93306; 93454; 96374; 99291

== ENCOUNTER 2021-09-27 13:47 | Observation (INO) | payer MEDICARE, OTHER ==
[2021-09-27] MEDS ORDERED: fentaNYL (PF) 50 MCG/ML 2 ML AMP IVP STA (16:26)
[2021-09-27] MEDS ORDERED: METOPROLOL TARTRATE 5 MG/5 ML VIAL IVP STA (16:39)
--- NOTE | 2021-09-27 16:39 | ED ---
General Adult HPI - General Chief complaint: Extremity Problem,Nontraumatic Stated complaint: Allergic reaction-Sent by Time Seen by Provider: 09/27/21 16:25 Source: patient, family, RN notes reviewed, old records reviewed Mode of arrival: ambulatory Limitations: no limitations - History of Present Illness Initial comments: 40-year-old female presents to the emergency room with complaints of bilateral lower extremity swelling, redness and weeping. Patient was bitten by her neighbors dog in November, was being treated for cellulitis with antibiotics by her primary care doctor. She was switched to Levaquin 4 days ago when she started to develop increasing swelling to bilateral lower extremities with weeping and redness spreading to her mid thighs bilaterally. She states that she is also having itching to her upper extremities with redness. She believes this is a reaction to the Levaquin. She also had nausea and vomiting and is unable to keep her medicines down today. She denies any chest pain or difficulty in breathing. No fevers. She caught primary care doctor who recommended she come to the emergency room for admission. -: days(s) (4) Location: left, right, lower extremity Associated Symptoms: nausea/vomiting Treatments Prior to Arrival: other (Levaquin) - Related Data Home Medications Medication Instructions Recorded Confirmed Ferrous Sulfate [Iron] 325 mg PO DAILY 07/11/18 09/27/21 Semaglutide [Ozempic] 0.5 mg SQ MO@2100 11/19/19 09/27/21 ALPRAZolam [Xanax] 0.5 mg PO BID PRN 06/16/20 09/27/21 Insulin Glargine,Hum.rec.anlog 40 unit SQ HS 08/07/20 09/27/21 [Lantus Solostar Pen] rOPINIRole HCL [Requip] 0.25 mg PO HS 02/01/21 09/27/21 Aspirin EC [Ecotrin Low Dose] 81 mg PO DAILY 03/06/21 09/27/21 Empagliflozin [Jardiance] 25 mg PO DAILY 07/29/21 09/27/21 Losartan Potassium [Cozaar] 100 mg PO DAILY 07/29/21 09/27/21 Magnesium Oxide [Mag-Ox] 400 mg PO BID 07/29/21 09/27/21 Metoprolol Succinate (ER) [Toprol 100 mg PO DAILY 07/29/21 09/27/21 XL] Spironolactone 25 mg PO DAILY 07/29/21 09/27/21 hydrALAZINE HCL [Apresoline] 100 mg PO DAILY 07/29/21 09/27/21 Cyanocobalamin [Vitamin B-12] 500 mcg PO DAILY 08/26/21 09/27/21 Montelukast Sodium [Singulair] 10 mg PO HS 08/26/21 09/27/21 Multivitamin/Iron/Folic Acid 1 tab PO DAILY 08/26/21 09/27/21 [Centrum Complete Multivit Tab] Nitroglycerin 0.4MG/Hr Patch 1 patch TRANSDERM DAILY PRN 08/26/21 09/27/21 [Nitro-Dur 0.4MG/Hr Patch] carvediloL [Coreg] 25 mg PO BID 08/26/21 09/27/21 HYDROmorphone [Dilaudid] 4 mg PO Q4H PRN 09/27/21 09/27/21 Levofloxacin [Levaquin] 500 mg PO DAILY 09/27/21 09/27/21 traZODone HCL [Desyrel] 50 mg PO HS PRN 09/27/21 09/27/21 Previous Rx's Medication Instructions Recorded Atorvastatin [Lipitor] 80 mg PO HS #30 tab 12/06/18 Clopidogrel [Plavix] 75 mg PO DAILY #30 tab 12/06/18 Apixaban [Eliquis] 5 mg PO BID #180 tab 11/21/19 Ezetimibe [Zetia] 10 mg PO DAILY #30 tab 02/02/21 Pantoprazole [Protonix] 40 mg PO BID #60 tab 02/02/21 Sertraline [Zoloft] 50 mg PO DAILY #30 tab 02/02/21 amLODIPine [Norvasc] 10 mg PO DAILY #30 tab 02/02/21 Torsemide [Demadex] 20 mg PO DAILY #30 tab 06/01/21 Allergies Allergy/AdvReac Type Severity Reaction Status Date / Time cephalexin [From Keflex] Allergy Rash/Hives Verified 09/27/21 17:32 codeine Allergy Rash/Hives Verified 09/27/21 17:32 Iodine and Iodide Containing Allergy Rash/Hives Verified 09/27/21 17:32 Produc levofloxacin [From Levaquin] Allergy Rash/Hives Verified 09/27/21 17:32 Penicillins Allergy Anaphylaxis Verified 09/27/21 17:32 tramadol Allergy Rash/Hives Verified 09/27/21 17:32 Review of Systems ROS Statement: Those systems with pertinent positive or pertinent negative responses have been documented in the HPI. ROS Other: All systems not noted in ROS Statement are negative. Past Medical History Past Medical History: Atrial Fibrillation, Asthma, Coronary Artery Disease (CAD), Cancer, Heart Failure, Diabetes Mellitus, GERD/Reflux, Hyperlipidemia, Hypertension, Myocardial Infarction (DC), Pulmonary Embolus (PE), Renal Disease, Respiratory Disorder Additional Past Medical History / Comment(s): IDDM type II, cardiomyopathy, multiple MIs, bilateral PEs, childhood leukemia with chemo and radiation, hypomagnesemia, anemia, peptic ulcer, gallstones, nephrolithiasis/pt passed stone on her own, UTIs, anemia, RLS, occasional R calf cramping since dog bite 10/2020, pt states she has had covid twice. Last Myocardial Infarction Date:: 04/2019 History of Any Multi-Drug Resistant Organisms: None Reported Past Surgical History: Section, Heart Catheterization With Stent, Joint Replacement, Tonsillectomy, Tubal Ligation Additional Past Surgical History / Comment(s): Partial R knee replacement, PCI/stents, surgery for PE/radiation. 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 Date of Last Stent Placement:: 05/08/19 Past Psychological History: Anxiety, Bipolar, Depression, Schizophrenia Smoking Status: Former smoker Past Alcohol Use History: None Reported Past Drug Use History: None Reported - Past Family History Father Family Medical History: Coronary Artery Disease (CAD), Hyperlipidemia, Hypertension Additional Family Medical History / Comment(s): pins in knee, heart stents x 4. Father is Mother Family Medical History: Coronary Artery Disease (CAD), Dementia, Diabetes Melli tus, Musculoskeletal Disorder, Renal Disease Additional Family Medical History / Comment(s): Parkinson's, stents in heart, neuropathy. General Exam Limitations: no limitations General appearance: alert, in no apparent distress Head exam: Present: atraumatic Eye exam: Absent: scleral icterus, conjunctival injection ENT exam: Present: mucous membranes moist Respiratory exam: Absent: respiratory distress, accessory muscle use Cardiovascular Exam: Present: tachycardia GI/Abdominal exam: Present: soft. Absent: rebound, rigid Extremities exam: Present: normal capillary refill Left Upper Leg exam: Present: tenderness, swelling, erythema Knee exam: Present: swelling, erythema Lower Leg exam: Present: tenderness, swelling (Weeping), erythema Ankle exam: Present: tenderness, swelling Foot/Toe exam: Present: tenderness, swelling Neurovascular tendon exam: Absent: abnormal cap refill, extremity cold to touch, abnormal 2-point discrimination, decreased fine/light touch, foot drop Right Upper Leg exam: Present: tenderness, swelling, erythema Knee exam: Present: tenderness, swelling Lower Leg exam: Present: tenderness, swelling (Weeping , excoriations), erythema Ankle exam: Present: tenderness, swelling Foot/Toe exam: Present: tenderness, swelling Neurovascular tendon exam: Present: no vascular compromise. Absent: abnormal cap refill, extremity cold to touch, abnormal 2-point discrimination, foot drop Neurological exam: Present: alert, oriented X3 Psychiatric exam: Present: normal affect, normal mood Course Vital Signs 09/27/21 09/27/21 09/27/21 15:50 16:10 17:57 Temperature 98.9 F Pulse Rate 117 H 116 H Respiratory 22 22 Rate Blood Pressure 202/119 225/141 171/116 O2 Sat by Pulse 98 99 Oximetry 09/27/21 09/27/21 18:37 19:00 Temperature Pulse Rate Respiratory Rate Blood Pressure 177/122 148/84 O2 Sat by Pulse Oximetry Medical Decision Making - Medical Decision Making Patient presents with a possible ALLERGIC reaction to Levaquin sent by primary care doctor. She denies any difficulty in breathing or chest pain. Did have nausea vomiting today. Pruritus to both upper and lower extremities, erythema and drainage to bilateral lower extremities. Labs show no evidence of leukocytosis. BUN and creatinine unremarkable. She was given Benadryl for the pruritus and started on vancomycin per Dr. Sena with infectious disease consult. Patient's blood pressure was elevated 225/[address] Sena has been labile. She was given hydralazine and labetalol in the emergency room for control. Patient is agreeable to admission. Case was discussed with Dr. Mcdaniel. - Lab Data Result diagrams: 09/27/21 16:31 09/27/21 16:31 Lab Results 09/27/21 09/27/21 Range/Units 16:31 16:31 WBC 8.1 (3.8-10.6) k/uL RBC 5.17 (3.80-5.40) m/uL Hgb 14.6 (11.4-16.0) gm/dL Hct 45.6 (34.0-46.0) % MCV 88.1 (80.0-100.0) fL MCH 28.3 (25.0-35.0) pg MCHC 32.1 (31.0-37.0) g/dL RDW 14.2 (11.5-15.5) % Plt Count 220 (150-450) k/uL MPV 8.6 Neutrophils % 72 % Lymphocytes % 13 % Monocytes % 5 % Eosinophils % 7 % Basophils % 1 % Neutrophils # 5.9 (1.3-7.7) k/uL Lymphocytes # 1.1 (1.0-4.8) k/uL Monocytes # 0.4 (0-1.0) k/uL Eosinophils # 0.6 (0-0.7) k/uL Basophils # 0.1 (0-0.2) k/uL Sodium 137 (137-145) mmol/L Potassium 4.0 (3.5-5.1) mmol/L Chloride 101 (98-107) mmol/L Carbon Dioxide 25 (22-30) mmol/L Anion Gap 11 mmol/L BUN 18 H (7-17) mg/dL Creatinine 1.01 (0.52-1.04) mg/dL Est GFR (CKD-EPI)AfAm 80 (>60 ml/min/1.73 sqM) Est GFR (CKD-EPI)NonAf 69 (>60 ml/min/1.73 sqM) Glucose 193 H (74-99) mg/dL Calcium 9.5 (8.4-10.2) mg/dL Total Bilirubin 1.5 H (0.2-1.3) mg/dL AST 21 (14-36) U/L ALT 16 (4-34) U/L Alkaline Phosphatase 75 (38-126) U/L Total Protein 6.8 (6.3-8.2) g/dL Albumin 4.1 (3.5-5.0) g/dL Critical Care Time Critical Care Time: Yes (30) Critical Care Time: Patient's blood pressure elevated 225/141, with multiple doses of antihy pertensives provided to control. Disposition Clinical Impression: Cellulitis of left leg, Cellulitis of right leg, Hypertension Disposition: ADMITTED IP TO THIS HOSP Referrals: Odell Sena MD [Primary Care Provider] - 1-2 days Decision Date: 09/27/21 Decision Time: 16:55
[2021-09-27] MEDS ORDERED: LABETALOL 5 MG/ML VIAL MDV IVP STA (16:47)
[2021-09-27 17:32] LABS: Basophils # (A) 0.1 k/uL (0-0.2); Basophils % (A) 1 %; Eosinophils # (A) 0.6 k/uL (0-0.7); Eosinophils % (A) 7 %; HCT 45.6 % (34.0-46.0); HGB 14.6 gm/dL (11.4-16.0); Lymphocytes # (A) 1.1 k/uL (1.0-4.8); Lymphocytes % (A) 13 %; MCH 28.3 pg (25.0-35.0); MCHC 32.1 g/dL (31.0-37.0); MCV 88.1 fL (80.0-100.0); Mean Platelet Volume 8.6; Monocytes # (A) 0.4 k/uL (0-1.0); Monocytes % (A) 5 %; Neutrophils # (A) 5.9 k/uL (1.3-7.7); Neutrophils % (A) 72 %; Platelet Count 220 k/uL (150-450); RBC 5.17 m/uL (3.80-5.40); RDW 14.2 % (11.5-15.5); WBC 8.1 k/uL (3.8-10.6)
[2021-09-27 17:42] LABS: Albumin 4.1 g/dL (3.5-5.0); Calcium 9.5 mg/dL (8.4-10.2); Total Bilirubin 1.5 mg/dL (0.2-1.3); Total Protein 6.8 g/dL (6.3-8.2)
[2021-09-27] MEDS ORDERED: hydrALAZINE HCL 20 MG/ML 1 ML VIAL IVP STA (18:00)
[2021-09-27] MEDS ORDERED: NALOXONE 0.4 MG/ML 1 ML VIAL IV PRN (18:00)
[2021-09-27] MEDS ORDERED: ALPRAZolam 0.5 MG TAB PO PRN (18:06)
[2021-09-27] MEDS ORDERED: HYDROmorphone 2 MG TAB PO PRN (18:06)
[2021-09-27] MEDS ORDERED: traZODone HCL 50 MG TAB PO PRN (18:06)
[2021-09-27] MEDS ORDERED: diphenhydrAMINE 50 MG/ML 1 ML VIAL IVP STA (18:06)
[2021-09-27] MEDS ORDERED: VANCOMYCIN IV PER PHARMACY 1 EACH MISC MISCELLANE PRN (18:06)
[2021-09-27] MEDS ORDERED: VANCOMYCIN 1,750 MG in SODIUM CHLORIDE 0.9% 500 ML 500 ML IVPB STA (18:09)
[2021-09-27] MEDS ORDERED: NON FORMULARY DRUG (Semaglutide [Ozempic] 0.25 MG/0.2 ML Pen.Injctr) SQ SCH (21:00)
[2021-09-27] MEDS: PANTOPRAZOLE 40 MG TABLET PO SCH (21:49)
[2021-09-27] MEDS: MAGNESIUM OXIDE 400 MG TAB PO SCH (21:49)
[2021-09-27] MEDS: ATORVASTATIN 80 MG TAB PO SCH (21:49)
[2021-09-27] MEDS: APIXABAN 5 MG TAB PO SCH (21:49)
[2021-09-27] MEDS: MONTELUKAST 10 MG TAB PO SCH (21:49)
[2021-09-27] MEDS: carvediloL 12.5 MG TAB PO SCH (21:49)
[2021-09-27] MEDS: INSULIN DETEMIR (LEVEMIR) 100 UNIT/ML SYR SQ SCH (21:50)
[2021-09-27 21:54] LABS: Glucose,Whole Blood 185 mg/dL (70-110)
[2021-09-28] MEDS: hydrALAZINE HCL 25 MG TAB PO SCH ×4 (02:11→20:18)
[2021-09-28] MEDS: diphenhydrAMINE 25 MG CAP PO PRN ×2 (02:11→09:28)
[2021-09-28 07:25] LABS: Glucose,Whole Blood 117 mg/dL (70-110)
[2021-09-28] MEDS: hydrALAZINE HCL 50 MG TAB PO SCH (09:29)
[2021-09-28] MEDS: CLOPIDOGREL 75 MG TAB PO SCH (09:29)
[2021-09-28] MEDS: PANTOPRAZOLE 40 MG TABLET PO SCH ×2 (09:29→20:42)
[2021-09-28] MEDS: SPIRONOLACTONE 25 MG TAB PO SCH (09:29)
[2021-09-28] MEDS: MAGNESIUM OXIDE 400 MG TAB PO SCH ×2 (09:29→20:42)
[2021-09-28] MEDS: TORSEMIDE 20 MG TAB PO SCH (09:29)
[2021-09-28] MEDS: METOPROLOL SUCCINATE (ER) 100 MG TAB.ER.24H PO SCH (09:29)
[2021-09-28] MEDS: EZETIMIBE 10 MG TAB PO SCH (09:29)
[2021-09-28] MEDS: SERTRALINE 50 MG TAB PO SCH (09:29)
[2021-09-28] MEDS: MULTIVITAMINS, THERA 1 EACH TAB PO SCH (09:29)
[2021-09-28] MEDS: ASPIRIN 81 MG PO SCH (09:30)
[2021-09-28] MEDS: APIXABAN 5 MG TAB PO SCH ×2 (09:30→20:42)
[2021-09-28] MEDS: LOSARTAN 50 MG TAB PO SCH (09:30)
[2021-09-28] MEDS: amLODIPine 10 MG TAB PO SCH (09:30)
[2021-09-28] MEDS: CYANOCOBALAMIN 500 MCG TAB PO SCH (09:30)
[2021-09-28] MEDS: FERROUS SULFATE 325 MG TAB PO SCH (09:30)
[2021-09-28] MEDS: carvediloL 12.5 MG TAB PO SCH ×2 (09:31→20:18)
[2021-09-28 09:36] LABS: African American GFR (CKD) 72.2 (60.0-200.0); Non-African American GFR(CKD) 62.3 (60.0-200.0)
[2021-09-28] MEDS: NON FORMULARY DRUG (Empagliflozin [Jardiance] 25 MG Tablet) PO SCH (09:36)
[2021-09-28] MEDS: VANCOMYCIN 1,750 MG in SODIUM CHLORIDE 0.9% 500 ML 500 ML IVPB SCH (09:39)
[2021-09-28 12:40] LABS: Glucose,Whole Blood 164 mg/dL (70-110)
[2021-09-28] MEDS: ONDANSETRON 4 MG/2 ML VIAL IVP PRN ×2 (15:18→21:02)
[2021-09-28 17:39] LABS: Glucose,Whole Blood 153 mg/dL (70-110)
--- NOTE | 2021-09-28 19:16 | HP ---
HISTORY AND PHYSICAL CHIEF COMPLAINT: Chest pain, shortness of breath, generalized rash and dependent edema with transudation from the right posterior leg. HISTORY OF PRESENT ILLNESS: This is another admission for this 40-year-old white female with chronic atherosclerotic cardiomyopathy. She is very unstable and gets into trouble when her blood pressure goes up and then she goes into heart failure. Her ejection fraction is around 20%. She has been trying to get started with Cardiology at [facility], but she is having trouble staying healthy enough to get there. She presented to the office on the day of admission with shortness of breath, chest pain, hypertension, progressive lower extremity edema and anasarca, stasis dermatitis and weeping and transudation from the right leg. The area in the leg was also becoming infected. Pulse was 113, blood pressure was 152/92, and she was sent to the emergency room. She did not have a fever. REVIEW OF SYSTEMS: She denies any abdominal pain, nausea, vomiting, etc. Past medical history, family history, and personal and social his histories are otherwise unremarkable and unchanged from her recent admitting and discharge summaries. She is ALLERGIC TO NUMEROUS MEDICATIONS, INCLUDING CODEINE, NYSTATIN, TRAMADOL, IODINE, CEPHALOSPORINS AND PENICILLINS. She has been on levofloxacin 500 mg once a day, Dilaudid 4 mg q.4 p.r.n. pain, and many other medications, including insulin, all of which can be found in the medical listing in her chart. She used to smoke but does not any longer. PHYSICAL EXAMINATION: Blood pressure 152/92 with a pulse of 113. In general she appeared to be obese and she was edematous. Skin demonstrated extensive erythematous maculopapular dermatitis on the face, trunk, arms and legs. Head, ears, eyes, nose, mouth and throat were otherwise normal. Neck veins could not be assessed. Chest demonstrated occasional rhonchi and scattered rales with decreased breath sounds at the bases. Cardiac exam demonstrated tachycardia of 113 beats per minute. The abdomen was distended, soft and nontender. Extremities demonstrated 4+ edema of both legs with stasis dermatitis and cellulitis and there was weeping from the lesions on the posterior right calf. She is admitted to the hospital with diagnoses: 1. Acute on chronic congestive heart failure. 2. Uncontrolled hypertension. 3. Insulin-dependent diabetes mellitus. 4. Venostasis disease of the lower extremities with dermatitis and cellulitis. 5. Cardiomyopathy. PLAN: 1. Bedrest. 2. Diuresis. 3. Elevate legs. 4. Consult with Infectious Disease. MMODL / IJN: [id number] /
--- NOTE | 2021-09-28 19:32 | PN ---
PROGRESS NOTE CHIEF COMPLAINT: Congestive heart failure with stasis dermatitis and cellulitis of the legs. HISTORY OF PRESENT ILLNESS: This lady is feeling just about the same. Edema has started to go down. She still has an extensive rash, which we think is related to Levaquin. PHYSICAL EXAMINATION: Her vital signs are normal. Cardiac exam is normal. The chest is clear. The abdomen is soft, nontender. IMPRESSION: 1. Congestive heart failure, acute on chronic. 2. Stasis dermatitis with cellulitis and transudation from the right posterior calf. 3. Diabetes mellitus. 4. Drug reaction. PLAN: Continue with current program with diuresis and withholding Levaquin. MMODL / IJN: [id number] /
[2021-09-28] MEDS: MONTELUKAST 10 MG TAB PO SCH (20:42)
[2021-09-28] MEDS: ATORVASTATIN 80 MG TAB PO SCH (20:42)
[2021-09-28] MEDS: INSULIN DETEMIR (LEVEMIR) 100 UNIT/ML SYR SQ SCH (20:43)
[2021-09-28 20:44] LABS: Glucose,Whole Blood 177 mg/dL (70-110)
[2021-09-29] MEDS: VANCOMYCIN 1,750 MG in SODIUM CHLORIDE 0.9% 500 ML 500 ML IVPB SCH (01:19)
[2021-09-29 06:58] LABS: Glucose,Whole Blood 106 mg/dL (70-110)
--- NOTE | 2021-09-29 07:16 | P.CONS ---
History of Present Illness - Reason for Consult Consult date: 09/28/21 Cellulitis bilateral lower extremity Requesting physician: Leo Coyle - Chief Complaint Lower extremity swelling and redness x days - History of Present Illness Patient is a 40-year-old female with multiple comorbidities including atrial fibrillation hypertension hyperlipidemia heart failure coronary artery disease presenting to the ER for evaluation of increasing swelling to bilateral lower extremity redness and weeping that has been getting worse over the last few weeks patient apparently has been treated in the outpatient setting by the primary care physician with oral Levaquin however the patient did not have any improvement she has been complaining of increasing swelling and redness to bilateral lower extremity along with the pain describing to be sharp 6-7 out of 10 radiation patient currently do not have any open wound or any blister however did have some weeping edema with the symptom the patient has been evaluated by the ER physician on arrival to the ER patient was afebrile patient did have a normal white count creatinine was normal liver exams are normal blood cultures obtained which are currently pending culture obtained from the left leg which are pending patient was started on vancomycin infectious disease was consulted for further management of antibiotic therapy Review of Systems Positive point has been mentioned in the HPI rest of the systems are negative Past Medical History Past Medical History: Atrial Fibrillation, Asthma, Coronary Artery Disease (C AD), Cancer, Heart Failure, Diabetes Mellitus, GERD/Reflux, Hyperlipidemia, Hypertension, Myocardial Infarction (MA), Pulmonary Embolus (PE), Renal Disease, Respiratory Disorder Additional Past Medical History / Comment(s): IDDM type II, cardiomyopathy, multiple MIs, bilateral PEs, childhood leukemia with chemo and radiation, hypomagnesemia, anemia, peptic ulcer, gallstones, nephrolithiasis/pt passed stone on her own, UTIs, anemia, RLS, occasional R calf cramping since dog bite 10/2020, pt states she has had covid twice. Last Myocardial Infarction Date:: 04/2019 History of Any Multi-Drug Resistant Organisms: None Reported Past Surgical History: Section, Heart Catheterization With Stent, Joint Replacement, Tonsillectomy, Tubal Ligation Additional Past Surgical History / Comment(s): Partial R knee replacement, PCI/stents, surgery for PE/radiation. 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 Date of Last Stent Placement:: 05/08/19 Past Psychological History: Anxiety, Bipolar, Depression, Schizophrenia Additional Psychological History / Comment(s): Pt resides with her fiancee and 15 yr old son. She does not drive, her fiancee drives, otherwise pt is independent. Smoking Status: Former smoker Past Alcohol Use History: None Reported Additional Past Alcohol Use History / Comment(s): Pt smoked for a few months in 2010. Past Drug Use History: None Reported Additional Drug Use History / Comment(s): stopped smoking in 2010; only smoked for 4-5 months. - Past Family History Father Family Medical History: Coronary Artery Disease (CAD), Hyperlipidemia, Hypertension Additional Family Medical History / Comment(s): pins in knee, heart stents x 4. Father is Mother Family Medical History: Coronary Artery Disease (CAD), Dementia, Diabetes M ellitus, Musculoskeletal Disorder, Renal Disease Additional Family Medical History / Comment(s): Parkinson's, stents in heart, neuropathy. Medications and Allergies Home Medications Medication Instructions Recorded Confirmed Type Ferrous Sulfate [Iron] 325 mg PO DAILY 07/11/18 09/27/21 History Atorvastatin [Lipitor] 80 mg PO HS #30 tab 12/06/18 09/27/21 Rx Clopidogrel [Plavix] 75 mg PO DAILY #30 tab 12/06/18 09/27/21 Rx Semaglutide [Ozempic] 0.5 mg SQ MO@2100 11/19/19 09/27/21 History Apixaban [Eliquis] 5 mg PO BID #180 tab 11/21/19 09/27/21 Rx ALPRAZolam [Xanax] 0.5 mg PO BID PRN 06/16/20 09/27/21 History Insulin Glargine,Hum.rec.anlog 40 unit SQ HS 08/07/20 09/27/21 History [Lantus Solostar Pen] rOPINIRole HCL [Requip] 0.25 mg PO HS 02/01/21 09/27/21 History Ezetimibe [Zetia] 10 mg PO DAILY #30 tab 02/02/21 09/27/21 Rx Pantoprazole [Protonix] 40 mg PO BID #60 tab 02/02/21 09/27/21 Rx Sertraline [Zoloft] 50 mg PO DAILY #30 tab 02/02/21 09/27/21 Rx amLODIPine [Norvasc] 10 mg PO DAILY #30 tab 02/02/21 09/27/21 Rx Aspirin EC [Ecotrin Low Dose] 81 mg PO DAILY 03/06/21 09/27/21 History Torsemide [Demadex] 20 mg PO DAILY #30 tab 06/01/21 09/27/21 Rx Empagliflozin [Jardiance] 25 mg PO DAILY 07/29/21 09/27/21 History Losartan Potassium [Cozaar] 100 mg PO DAILY 07/29/21 09/27/21 History Magnesium Oxide [Mag-Ox] 400 mg PO BID 07/29/21 09/27/21 History Metoprolol Succinate (ER) [Toprol 100 mg PO DAILY 07/29/21 09/27/21 History XL] Spironolactone 25 mg PO DAILY 07/29/21 09/27/21 History hydrALAZINE HCL [Apresoline] 100 mg PO DAILY 07/29/21 09/27/21 History Cyanocobalamin [Vitamin B-12] 500 mcg PO DAILY 08/26/21 09/27/21 History Montelukast Sodium [Singulair] 10 mg PO HS 08/26/21 09/27/21 History Multivitamin/Iron/Folic Acid 1 tab PO DAILY 08/26/21 09/27/21 History [Centrum Complete Multivit Tab] Nitroglycerin 0.4MG/Hr Patch 1 patch TRANSDERM DAILY PRN 08/26/21 09/27/21 History [Nitro-Dur 0.4MG/Hr Patch] carvediloL [Coreg] 25 mg PO BID 08/26/21 09/27/21 History HYDROmorphone [Dilaudid] 4 mg PO Q4H PRN 09/27/21 09/27/21 History Levofloxacin [Levaquin] 500 mg PO DAILY 09/27/21 09/27/21 History traZODone HCL [Desyrel] 50 mg PO HS PRN 09/27/21 09/27/21 History Allergies Allergy/AdvReac Type Severity Reaction Status Date / Time cephalexin [From Keflex] Allergy Rash/Hives Verified 09/27/21 17:32 codeine Allergy Rash/Hives Verified 09/27/21 17:32 Iodine and Iodide Containing Allergy Rash/Hives Verified 09/27/21 17:32 Produc levofloxacin [From Levaquin] Allergy Rash/Hives Verified 09/27/21 17:32 Penicillins Allergy Anaphylaxis Verified 09/27/21 17:32 tramadol Allergy Rash/Hives Verified 09/27/21 17:32 Physical Exam Vitals: Vital Signs Temp Pulse Pulse Resp BP BP Pulse Ox 09/28/21 14:29 75 105/69 09/28/21 13:56 97.5 F L 73 18 93/62 97 09/28/21 07:00 98.5 F 100 21 166/111 95 09/28/21 01:47 98.3 F 108 H 20 210/127 97 09/27/21 21:32 97.7 F 102 H 20 195/122 99 09/27/21 20:34 89 18 168/91 98 09/27/21 19:00 148/84 09/27/21 18:37 177/122 09/27/21 17:57 171/116 09/27/21 16:10 116 H 22 225/141 99 09/27/21 15:50 98.9 F 117 H 22 202/119 98 Intake and Output 09/27/21 09/28/21 09/28/21 22:59 06:59 14:59 Intake Total 118 Balance 118 Intake: Oral 118 Other: Voiding Method Toilet # Voids 0 1 Weight 103.419 kg GENERAL DESCRIPTION: Middle-aged female lying in bed, no distress. No tachypnea or accessory muscle of respiration use. HEENT: Shows Pallor , no scleral icterus. Oral mucous membrane is dry. No pharyngeal erythema or thrush NECK: Trachea central, no thyromegaly. LUNGS: Unlabored breathing. Clear to auscultation anteriorly. No wheeze or crackle. HEART: S1, S2, regular rate and rhythm. No loud murmur ABDOMEN: Soft, no tenderness , guarding or rigidity, no organomegaly EXTREMITIES: Diffuse swelling of bilateral upper extremity with swelling and redness warmth to touch SKIN: No rash, no masses palpable. NEUROLOGICAL: The patient is awake, alert, oriented x3, mood and affect normal. Results CBC & Chem 7: 09/27/21 16:31 09/29/21 04:51 Labs: Abnormal Lab Results - Last 24 Hours (Table) 09/27/21 09/27/21 09/28/21 Range/Units 16:31 21:53 07:24 BUN 18 H (7-17) mg/dL Glucose 193 H (74-99) mg/dL POC Glucose (mg/dL) 185 H 117 H (70-110) mg/dL Total Bilirubin 1.5 H (0.2-1.3) mg/dL 09/28/21 Range/Units 12:38 BUN (7-17) mg/dL Glucose (74-99) mg/dL POC Glucose (mg/dL) 164 H (70-110) mg/dL Total Bilirubin (0.2-1.3) mg/dL Microbiology - Last 24 Hours (Table) 09/27/21 16:45 Gram Stain - Preliminary Leg - Right Wound Culture - Preliminary Assessment and Plan (1) Cellulitis of left leg Current Visit: Yes Status: Acute Code(s): L03.116 - CELLULITIS OF LEFT LOWER LIMB SNOMED Code(s): 182788271 (2) Cellulitis of right leg Current Visit: Yes Status: Acute Code(s): L03.115 - CELLULITIS OF RIGHT LOWER LIMB SNOMED Code(s): 785533362 Plan: 1patient with bilateral lower extremity swelling and redness more likely evidence of fluid overload and possible component of cellulitis likely from gram-positive skin quinn such as strep. 2patient with multiple antibiotic allergies that would limit the number of antibiotics safe to use 3Ace wrap to the leg from just above the toe to below the knee to keep the swelling down. 4vancomycin pharmacy to dose target trough of 15 while watching kidney function and vancomycin trough closely. We will follow on clinical condition and cultures to further adjust medication if needed Thank you for this consultation will follow this patient along with you Time with Patient: Greater than 30
[2021-09-29] MEDS: LOSARTAN 50 MG TAB PO SCH (09:06)
[2021-09-29] MEDS: SERTRALINE 50 MG TAB PO SCH (09:06)
[2021-09-29] MEDS: EZETIMIBE 10 MG TAB PO SCH (09:06)
[2021-09-29] MEDS: SPIRONOLACTONE 25 MG TAB PO SCH (09:06)
[2021-09-29] MEDS: APIXABAN 5 MG TAB PO SCH ×2 (09:06→20:31)
[2021-09-29] MEDS: ASPIRIN 81 MG PO SCH (09:06)
[2021-09-29] MEDS: carvediloL 12.5 MG TAB PO SCH ×2 (09:07→17:54)
[2021-09-29] MEDS: CLOPIDOGREL 75 MG TAB PO SCH (09:07)
[2021-09-29] MEDS: METOPROLOL SUCCINATE (ER) 100 MG TAB.ER.24H PO SCH (09:07)
[2021-09-29] MEDS: PANTOPRAZOLE 40 MG TABLET PO SCH ×2 (09:07→20:31)
[2021-09-29] MEDS: FERROUS SULFATE 325 MG TAB PO SCH (09:07)
[2021-09-29] MEDS: TORSEMIDE 20 MG TAB PO SCH (09:07)
[2021-09-29] MEDS: CYANOCOBALAMIN 500 MCG TAB PO SCH (09:07)
[2021-09-29] MEDS: MAGNESIUM OXIDE 400 MG TAB PO SCH ×2 (09:08→20:31)
[2021-09-29] MEDS: amLODIPine 10 MG TAB PO SCH (09:08)
[2021-09-29] MEDS: NON FORMULARY DRUG (Empagliflozin [Jardiance] 25 MG Tablet) PO SCH (09:08)
[2021-09-29] MEDS: MULTIVITAMINS, THERA 1 EACH TAB PO SCH (09:09)
[2021-09-29 10:43] LABS: African American GFR (CKD) 28.1 (60.0-200.0); Non-African American GFR(CKD) 24.3 (60.0-200.0)
[2021-09-29] MEDS: hydrALAZINE HCL 25 MG TAB PO SCH ×3 (11:28→20:32)
[2021-09-29] MEDS: hydrALAZINE HCL 50 MG TAB PO SCH (11:28)
[2021-09-29 12:21] LABS: Glucose,Whole Blood 158 mg/dL (70-110)
[2021-09-29] MEDS: ONDANSETRON 4 MG/2 ML VIAL IVP PRN (12:32)
[2021-09-29] MEDS: diphenhydrAMINE 25 MG CAP PO PRN (16:07)
--- NOTE | 2021-09-29 16:08 | P.PN ---
Subjective Progress Note Date: 09/29/21 Principal diagnosis: Bilateral lower extremity cellulitis Patient is a 40 year old female with multiple comorbidities including hypertension hyperlipidemia heart failure presented to hospital with decrease in lower extremity swelling and redness concerning for cellulitis. On today's evaluation that is 09/29/2021, the patient is afebrile, is currently breathing comfortably on nasal cannula oxygen denies any chest pain shortness of cough still has significant swelling to lower extremity but no worsening no open wound or any drainage Objective - Vital Signs Vital signs: Vital Signs Temp 97.6 F 09/29/21 11:20 Pulse 68 09/29/21 11:20 Resp 18 09/29/21 07:00 BP 127/87 09/29/21 11:20 Pulse Ox 95 09/29/21 11:20 FiO2 Intake & Output 09/28/21 09/29/21 09/29/21 18:59 06:59 18:59 Intake Total 118 120 Output Total 10 Balance 108 120 Intake: Oral 118 120 Output: Emesis 10 Other: Voiding Method Toilet Toilet # Voids 2 - Exam GENERAL DESCRIPTION: A middle-aged female lying in bed in no distress RESPIRATORY SYSTEM: Unlabored breathing , decreased breath sounds at bases HEART: S1 S2 regular rate and rhythm , ABDOMEN: Soft , no tenderness EXTREMITIES: Bilateral lower extremity diffuse swelling and redness no prolonged wound or any drainage - Labs CBC & Chem 7: 09/27/21 16:31 09/29/21 04:51 Labs: Abnormal Lab Results - Last 24 Hours (Table) 09/28/21 09/28/21 09/29/21 Range/Units 17:38 20:43 04:51 Creatinine 2.4 H (0.6-1.5) mg/dL Est GFR (CKD-EPI)AfAm 28.1 L (60.0-200.0) Est GFR (CKD-EPI)NonAf 24.3 L (60.0-200.0) POC Glucose (mg/dL) 153 H 177 H (70-110) mg/dL 09/29/21 Range/Units 12:17 Creatinine (0.6-1.5) mg/dL Est GFR (CKD-EPI)AfAm (60.0-200.0) Est GFR (CKD-EPI)NonAf (60.0-200.0) POC Glucose (mg/dL) 158 H (70-110) mg/dL Microbiology - Last 24 Hours (Table) 09/27/21 16:31 Blood Culture - Preliminary Blood No Growth after 24 hours 09/27/21 17:16 Blood Culture - Preliminary Blood No Growth after 24 hours Assessment and Plan (1) Cellulitis of left leg Current Visit: Yes Status: Acute Code(s): L03.116 - CELLULITIS OF LEFT LOWER LIMB SNOMED Code(s): 289670019 (2) Cellulitis of right leg Current Visit: Yes Status: Acute Code(s): L03.115 - CELLULITIS OF RIGHT LOWER LIMB SNOMED Code(s): 667259246 Plan: 1patient with bilateral lower extremity swelling and redness more likely evidence of fluid overload and possible component of cellulitis likely from gram-positive skin quinn such as strep. 2patient with multiple antibiotic allergies that would limit the number of antibiotics safe to use 3RN has been advised to apply Ryan wrap to the legs from just above the toe to below the knee to keep the swelling down. 4patient to continue with vancomycin pharmacy to dose target trough of 15 while watching kidney function and vancomycin trough closely. Time with Patient: Less than 30
[2021-09-29 17:38] LABS: Glucose,Whole Blood 131 mg/dL (70-110)
[2021-09-29 20:14] LABS: Glucose,Whole Blood 166 mg/dL (70-110)
[2021-09-29] MEDS: ATORVASTATIN 80 MG TAB PO SCH (20:31)
[2021-09-29] MEDS: INSULIN DETEMIR (LEVEMIR) 100 UNIT/ML SYR SQ SCH (20:31)
[2021-09-29] MEDS: MONTELUKAST 10 MG TAB PO SCH (20:36)
--- NOTE | 2021-09-29 20:47 | PN ---
PROGRESS NOTE DATE OF SERVICE: 09/29/2021 CHIEF COMPLAINT: Cellulitis of right leg drug reaction. HISTORY OF PRESENT ILLNESS: This lady is still having difficulty with generalized pruritus and a maculopapular rash. Leg is elevated and she is on IV antibiotics and is being followed by Infectious Disease. Other than that, she is doing fairly well. PHYSICAL EXAMINATION: Her vital signs are quite normal. She is afebrile. She still has an extensive rash on the face, arms, legs and trunk. Chest is clear. Cardiac exam is unchanged. Abdomen is soft and protuberant. The right leg is wrapped. IMPRESSION: 1. Dependent edema was stasis dermatitis and cellulitis of the legs with the right being worse. 2. Cardiomyopathy. 3. Congestive heart failure. 4. Renal failure. 5. Drug reaction. PLAN: Continue with current program. It may be necessary to add a steroid for her drug reaction. MMODL / IJN: [id number] /
[2021-09-29] MEDS ORDERED: VANCOMYCIN 1,750 MG in SODIUM CHLORIDE 0.9% 500 ML 500 ML IVPB SCH (22:00)
[2021-09-30] MEDS: diphenhydrAMINE 25 MG CAP PO PRN (04:12)
[2021-09-30 07:38] LABS: Glucose,Whole Blood 113 mg/dL (70-110)
[2021-09-30] MEDS: ONDANSETRON 4 MG/2 ML VIAL IVP PRN (08:31)
[2021-09-30] MEDS: METOPROLOL SUCCINATE (ER) 100 MG TAB.ER.24H PO SCH (08:32)
[2021-09-30] MEDS: TORSEMIDE 20 MG TAB PO SCH (08:32)
[2021-09-30] MEDS: hydrALAZINE HCL 50 MG TAB PO SCH (08:33)
[2021-09-30] MEDS: ASPIRIN 81 MG PO SCH (09:19)
[2021-09-30] MEDS: EZETIMIBE 10 MG TAB PO SCH (09:19)
[2021-09-30] MEDS: MULTIVITAMINS, THERA 1 EACH TAB PO SCH (09:19)
[2021-09-30] MEDS: MAGNESIUM OXIDE 400 MG TAB PO SCH ×2 (09:19→21:39)
[2021-09-30] MEDS: LOSARTAN 50 MG TAB PO SCH (09:19)
[2021-09-30] MEDS: PANTOPRAZOLE 40 MG TABLET PO SCH ×2 (09:19→21:39)
[2021-09-30] MEDS: amLODIPine 10 MG TAB PO SCH (09:20)
[2021-09-30] MEDS: CLOPIDOGREL 75 MG TAB PO SCH (09:20)
[2021-09-30] MEDS: FERROUS SULFATE 325 MG TAB PO SCH (09:20)
[2021-09-30] MEDS: carvediloL 12.5 MG TAB PO SCH ×2 (09:20→17:14)
[2021-09-30] MEDS: APIXABAN 5 MG TAB PO SCH ×2 (09:20→21:39)
[2021-09-30] MEDS: CYANOCOBALAMIN 500 MCG TAB PO SCH (09:20)
[2021-09-30] MEDS: hydrALAZINE HCL 25 MG TAB PO SCH ×3 (09:21→21:39)
[2021-09-30] MEDS: NON FORMULARY DRUG (Empagliflozin [Jardiance] 25 MG Tablet) PO SCH (09:21)
[2021-09-30] MEDS: SERTRALINE 50 MG TAB PO SCH (09:21)
[2021-09-30] MEDS: SPIRONOLACTONE 25 MG TAB PO SCH (09:21)
--- NOTE | 2021-09-30 11:49 | P.PN ---
Subjective Progress Note Date: 09/30/21 Principal diagnosis: Bilateral lower extremity cellulitis Patient is a 40 year old female with multiple comorbidities including hypertension hyperlipidemia heart failure presented to hospital with decrease in lower extremity swelling and redness concerning for cellulitis. On today's evaluation that is 09/30/2021, the patient remains to be afebrile, the patient is currently breathing comfortably on nasal cannula oxygen, the patient denies any chest pain shortness of cough still has significant swelling to lower extremity but patient mentioned overall pain has decreased in intensity and is no drainage Objective - Vital Signs Vital signs: Vital Signs Temp 97.4 F L 09/30/21 07:45 Pulse 78 09/30/21 07:45 Resp 16 09/30/21 07:45 BP 137/70 09/30/21 07:45 Pulse Ox 96 09/30/21 07:45 FiO2 Intake & Output 09/29/21 09/30/21 09/30/21 18:59 06:59 18:59 Intake Total 360 Balance 360 Intake: Oral 360 Other: Voiding Method Toilet # Voids 2 3 0 - Exam GENERAL DESCRIPTION: A middle-aged female lying in bed in no distress RESPIRATORY SYSTEM: Unlabored breathing , decreased breath sounds at bases HEART: S1 S2 regular rate and rhythm , ABDOMEN: Soft , no tenderness EXTREMITIES: Bilateral lower extremity diffuse swelling and redness which has slightly decreased in intensity - Labs CBC & Chem 7: 09/27/21 16:31 09/30/21 05:12 Labs: Abnormal Lab Results - Last 24 Hours (Table) 09/29/21 09/29/21 09/29/21 Range/Units 12:17 17:35 20:08 Creatinine (0.52-1.04) mg/dL POC Glucose (mg/dL) 158 H 131 H 166 H (70-110) mg/dL 09/30/21 09/30/21 Range/Units 05:12 07:26 Creatinine 3.15 H (0.52-1.04) mg/dL POC Glucose (mg/dL) 113 H (70-110) mg/dL Microbiology - Last 24 Hours (Table) 09/27/21 16:45 Gram Stain - Final Leg - Right Wound Culture - Final 09/27/21 16:31 Blood Culture - Preliminary Blood No Growth after 48 hours 09/27/21 17:16 Blood Culture - Preliminary Blood No Growth after 48 hours Assessment and Plan (1) Cellulitis of left leg Current Visit: Yes Status: Acute Code(s): L03.116 - CELLULITIS OF LEFT LOWER LIMB SNOMED Code(s): 161493783 (2) Cellulitis of right leg Current Visit: Yes Status: Acute Code(s): L03.115 - CELLULITIS OF RIGHT LOWER LIMB SNOMED Code(s): 329316225 Plan: 1patient with bilateral lower extremity swelling and redness more likely evidence of fluid overload and possible component of cellulitis likely from gram-positive skin quinn such as strep. 2-patient withRN has been advised to apply Ryan wrap to the legs from just above the toe to below the knee to keep the swelling down. 3patient seemed to have shown some clinical improvement keeping in mind multiple antibiotic ALLERGIES patient will need outpatient IV vancomycin or daptomycin on discharge 4- patient to continue with vancomycin pharmacy to dose target trough of 15 while watching kidney function and vancomycin trough closely. Time with Patient: Less than 30
[2021-09-30 12:51] LABS: Glucose,Whole Blood 117 mg/dL (70-110)
[2021-09-30] MEDS: METOCLOPRAMIDE 5 MG/ML 2 ML VIAL IVP SCH ×3 (12:54→23:12)
[2021-09-30] MEDS ORDERED: VANCOMYCIN TROUGH DUE 1 EACH MISC MISCELLANE ONE (13:00)
[2021-09-30] MEDS ORDERED: VANCOMYCIN IV PER PHARMACY 1 EACH MISC MISCELLANE PRN (13:28)
[2021-09-30 17:41] LABS: Glucose,Whole Blood 132 mg/dL (70-110)
--- NOTE | 2021-09-30 19:28 | PN ---
PROGRESS NOTE CHIEF COMPLAINT: Dependent edema, cellulitis and transudation from the legs. HISTORY OF PRESENT ILLNESS: This lady is doing a little bit better. Her rash is clearing. She still has significant edema in the lower extremities, but the drainage from the right calf is improving. She is having some trouble with nausea. She has had no significant chest pain or shortness of breath. PHYSICAL EXAMINATION: Breath sounds are diminished, but there are only occasional rales. Cardiac exam is normal. The abdomen is protuberant, soft and nontender. Extremities are still quite edematous, but there is less drainage from the posterior right calf. Rash is improving on the face, , arms and legs. IMPRESSION: 1. Venostasis disease with cellulitis, ulceration and transudation from the right calf. 2. Cardiomyopathy. 3. Congestive heart failure. 4. Renal failure. 5. Diabetes. 6. Hypertension. PLAN: Continue efforts to manage her nausea, edema and blood pressure before she is discharged. MMODL / IJN: [id number] /
[2021-09-30 21:34] LABS: Glucose,Whole Blood 140 mg/dL (70-110)
[2021-09-30] MEDS: MONTELUKAST 10 MG TAB PO SCH (21:39)
[2021-09-30] MEDS: ATORVASTATIN 80 MG TAB PO SCH (21:39)
[2021-09-30] MEDS: INSULIN DETEMIR (LEVEMIR) 100 UNIT/ML SYR SQ SCH (21:40)
[2021-10-01] MEDS: METOCLOPRAMIDE 5 MG/ML 2 ML VIAL IVP SCH (05:56)
[2021-10-01 06:58] LABS: Glucose,Whole Blood 113 mg/dL (70-110)
[2021-10-01 07:23] VITALS: BP 141/94; PULSE 80; RESP 20; TEMP 97.5
[2021-10-01] MEDS: CYANOCOBALAMIN 500 MCG TAB PO SCH (08:49)
[2021-10-01] MEDS: TORSEMIDE 20 MG TAB PO SCH (08:49)
[2021-10-01] MEDS: APIXABAN 5 MG TAB PO SCH (08:49)
[2021-10-01] MEDS: MAGNESIUM OXIDE 400 MG TAB PO SCH (08:49)
[2021-10-01] MEDS: carvediloL 12.5 MG TAB PO SCH (08:49)
[2021-10-01] MEDS: amLODIPine 10 MG TAB PO SCH (08:49)
[2021-10-01] MEDS: ASPIRIN 81 MG PO SCH (08:49)
[2021-10-01] MEDS: PANTOPRAZOLE 40 MG TABLET PO SCH (08:49)
[2021-10-01] MEDS: FERROUS SULFATE 325 MG TAB PO SCH (08:49)
[2021-10-01] MEDS: LOSARTAN 50 MG TAB PO SCH (08:49)
[2021-10-01] MEDS: hydrALAZINE HCL 25 MG TAB PO SCH (08:49)
[2021-10-01] MEDS: SPIRONOLACTONE 25 MG TAB PO SCH (08:49)
[2021-10-01] MEDS: EZETIMIBE 10 MG TAB PO SCH (08:49)
[2021-10-01] MEDS: SERTRALINE 50 MG TAB PO SCH (08:50)
[2021-10-01] MEDS: CLOPIDOGREL 75 MG TAB PO SCH (08:50)
[2021-10-01] MEDS: hydrALAZINE HCL 50 MG TAB PO SCH (08:50)
[2021-10-01] MEDS: MULTIVITAMINS, THERA 1 EACH TAB PO SCH (08:50)
[2021-10-01] MEDS: METOPROLOL SUCCINATE (ER) 100 MG TAB.ER.24H PO SCH (08:50)
[2021-10-01] MEDS: NON FORMULARY DRUG (Empagliflozin [Jardiance] 25 MG Tablet) PO SCH (08:50)
[2021-10-01 11:39] LABS: Glucose,Whole Blood 133 mg/dL (70-110)
--- NOTE | 2021-10-01 15:01 | P.PN ---
Subjective Progress Note Date: 10/01/21 Principal diagnosis: Bilateral lower extremity cellulitis Patient is a 40 year old female with multiple comorbidities including hypertension hyperlipidemia heart failure presented to hospital with decrease in lower extremity swelling and redness concerning for cellulitis. On today's evaluation that is 10/01/2021, the patient denies any fever or chills, the patient is breathing comfortably on nasal cannula oxygen, the patient denies any chest pain shortness of breath, the patient and mother lower extremity pain and swelling has decreased intensity and is feeling better and wants to go home Objective - Vital Signs Vital signs: Vital Signs Temp 97.5 F L 10/01/21 07:00 Pulse 80 10/01/21 07:00 Resp 20 10/01/21 08:00 BP 141/94 10/01/21 07:00 Pulse Ox 96 10/01/21 07:00 FiO2 Intake & Output 09/30/21 10/01/21 10/01/21 18:59 06:59 18:59 Intake Total 360 Balance 360 Intake: Oral 360 Other: Voiding Method Toilet Toilet # Voids 1 1 - Exam GENERAL DESCRIPTION: A middle-aged female lying in bed in no distress RESPIRATORY SYSTEM: Unlabored breathing , decreased breath sounds at bases HEART: S1 S2 regular rate and rhythm , ABDOMEN: Soft , no tenderness EXTREMITIES: Bilateral lower extremity are currently wrapped in Ryan wrap, there is no drainage on the dressing - Labs CBC & Chem 7: 09/27/21 16:31 09/30/21 05:12 Labs: Abnormal Lab Results - Last 24 Hours (Table) 09/30/21 09/30/21 09/30/21 Range/Units 12:33 17:38 21:32 POC Glucose (mg/dL) 132 H 140 H (70-110) mg/dL Vancomycin Trough 46.1 H* ug/mL 10/01/21 10/01/21 Range/Units 06:55 11:38 POC Glucose (mg/dL) 113 H 133 H (70-110) mg/dL Vancomycin Trough ug/mL Microbiology - Last 24 Hours (Table) 09/27/21 16:31 Blood Culture - Preliminary Blood No Growth after 72 hours 09/27/21 17:16 Blood Culture - Preliminary Blood No Growth after 72 hours Assessment and Plan (1) Cellulitis of left leg Status: Acute Code(s): L03.116 - CELLULITIS OF LEFT LOWER LIMB SNOMED Code(s): 855851307 (2) Cellulitis of right leg Status: Acute Code(s): L03.115 - CELLULITIS OF RIGHT LOWER LIMB SNOMED Cod e(s): 216846116 Plan: 1patient with bilateral lower extremity swelling and redness more likely evidence of fluid overload and possible component of cellulitis likely from gram-positive skin quinn such as strep. 2-patient advised to continue with Ryan wrap to the legs from just above the toe to below the knee to keep the swelling down. 3patient seemed to have shown some clinical improvement keeping in mind multiple antibiotic ALLERGIES patient was advised IV antibiotics on discharge however the patient is refusing 4prescription for clindamycin has been sent by the admitting physician which is appropriate and close outpatient follow-up Time with Patient: Less than 30
[2021-10-01] MEDS ORDERED: CLINDAMYCIN 150 MG CAP PO SCH ×2 (16:00)
--- NOTE | 2021-10-01 20:26 | DS ---
DISCHARGE SUMMARY CHIEF COMPLAINT: Pain, swelling, redness and cellulitis of the right leg with generalized maculopapular pruritic rash. HISTORY OF PRESENT ILLNESS AND PHYSICAL EXAMINATION: Details of this lady's history and physical can be found in the initial workup. LABORATORY STUDIES: While she is in the hospital she had laboratory studies, details of which can be found in the laboratory section of her chart. COURSE IN THE HOSPITAL: After admission she was placed on bedrest, started on intravenous fluids and vancomycin. Her rash improved on Benadryl. She was stable and doing well, and it was felt that she could go home on October 01. She will go home on light activity about the house and her usual diet and medication. Her diuretic program. Will increase her Demodex to 80 mg twice a day. She will be sent home on clindamycin 300 mg t.i.d. and be seen in the office in 3 or 4 days. Watch for diarrhea. She will be on Benadryl to continue to thwart the reaction to the quinolone. FINAL DIAGNOSIS: 1. Cellulitis of the right lower leg. 2. Stasis dermatitis of both lower extremities. 3. Venostasis disease of the lower extremities. 4. Acute on chronic pansystolic and diastolic heart failure. 5. Cardiomyopathy. 6. Hypertension. 7. Type 2 diabetes. 8. Chronic kidney disease. 9. Levaquin drug reaction. OPERATIONS: None. CONSULTATION: Infectious Disease. She is improved. MMODL / SHERIFN: [id number] /
[2021-10-02] MEDS ORDERED: TORSEMIDE 20 MG TAB PO SCH (09:00)
== END 2021-10-01 12:51 | disposition home or self-care (01) ==
LOC: EC 13:47 → 6NMEDSUR 19:41
PROVIDERS: ADMIT Family Medicine; ATTEND Family Medicine
DX: L03.116 Cellulitis of left lower limb (principal); L03.115 Cellulitis of right lower limb; I87.2 Venous insufficiency (chronic) (peripheral); I13.0 Hypertensive heart and chronic kidney disease with heart failure and stage 1 through stage 4 chronic kidney disease, or unspecified chronic kidney disease; I50.33 Acute on chronic diastolic (congestive) heart failure; N18.9 Chronic kidney disease, unspecified; E11.22 Type 2 diabetes mellitus with diabetic chronic kidney disease; I42.9 Cardiomyopathy, unspecified; T36.8X5A Adverse effect of other systemic antibiotics, initial encounter; S81.851D Open bite, right lower leg, subsequent encounter; R11.2 Nausea with vomiting, unspecified; I48.91 Unspecified atrial fibrillation; J45.909 Unspecified asthma, uncomplicated; I25.10 Atherosclerotic heart disease of native coronary artery without angina pectoris; K21.9 Gastro-esophageal reflux disease without esophagitis; E78.5 Hyperlipidemia, unspecified; I25.2 Old myocardial infarction; G25.81 Restless legs syndrome; F20.9 Schizophrenia, unspecified; F31.9 Bipolar disorder, unspecified; F41.9 Anxiety disorder, unspecified; E83.42 Hypomagnesemia; L29.9 Pruritus, unspecified; R07.9 Chest pain, unspecified; R21 Rash and other nonspecific skin eruption; D64.9 Anemia, unspecified; E66.9 Obesity, unspecified; Z68.41 Body mass index [BMI] 40.0-44.9, adult; Z79.82 Long term (current) use of aspirin; Z79.84 Long term (current) use of oral hypoglycemic drugs; Z79.899 Other long term (current) drug therapy; Z79.02 Long term (current) use of antithrombotics/antiplatelets; Z79.4 Long term (current) use of insulin; Z79.01 Long term (current) use of anticoagulants; Z88.1 Allergy status to other antibiotic agents; Z88.5 Allergy status to narcotic agent; Z88.0 Allergy status to penicillin; Z88.8 Allergy status to other drugs, medicaments and biological substances; Z91.048 Other nonmedicinal substance allergy status; Z86.711 Personal history of pulmonary embolism; Z87.891 Personal history of nicotine dependence; Z87.11 Personal history of peptic ulcer disease; Z85.6 Personal history of leukemia; Z92.21 Personal history of antineoplastic chemotherapy; Z92.3 Personal history of irradiation; Z87.440 Personal history of urinary (tract) infections; Z87.442 Personal history of urinary calculi; Z86.16 Personal history of COVID-19; Z95.5 Presence of coronary angioplasty implant and graft; Z96.651 Presence of right artificial knee joint; Z71.9 Counseling, unspecified; Z82.49 Family history of ischemic heart disease and other diseases of the circulatory system; Z83.3 Family history of diabetes mellitus; Z82.0 Family history of epilepsy and other diseases of the nervous system; Z81.8 Family history of other mental and behavioral disorders; Z82.69 Family history of other diseases of the musculoskeletal system and connective tissue
CPT/HCPCS: 96376 ×4; 96366 ×4; 96375 ×3; 96365; 99285; 36415; 80053; 82565 ×3; 85025; 80202 ×2; 87040; 87070; 87205; G0378 ×5; J3370 ×3; J0360; J1200; J2765 ×2; J2405 ×3; J3010

== ENCOUNTER → 2021-11-29 | Outpatient (CLI) | payer MEDICARE, OTHER ==
[2021-11-29 12:08] LABS: Basophils % (A) 1 %; Eosinophils # (A) 0.2 k/uL (0-0.7); Eosinophils % (A) 5 %; HCT 37.4 % (34.0-46.0); HGB 11.8 gm/dL (11.4-16.0); Hypochromasia Slight; Lymphocytes # (A) 0.7 k/uL (1.0-4.8); Lymphocytes % (A) 16 %; MCH 28.1 pg (25.0-35.0); MCHC 31.6 g/dL (31.0-37.0); MCV 88.9 fL (80.0-100.0); Mean Platelet Volume 8.3; Monocytes # (A) 0.2 k/uL (0-1.0); Monocytes % (A) 5 %; Neutrophils # (A) 3.1 k/uL (1.3-7.7); Neutrophils % (A) 71 %; Platelet Count 194 k/uL (150-450); RDW 15.7 % (11.5-15.5); WBC 4.3 k/uL (3.8-10.6)
[2021-11-29 18:09] LABS: Urine Creatinine 59.3 mg/dL (28.0-217.0)
[2021-11-29 19:15] LABS: ALT 125 U/L (8-44); AST 97 U/L (13-35); Albumin/Globulin Ratio 1.25 (1.60-3.17); Alkaline Phosphatase 98 U/L (41-126); BUN/Creat Ratio 13.58 Ratio (12.00-20.00); Blood Urea Nitrogen 16.3 mg/dL (9.0-27.0); Calcium 9.3 mg/dL (8.7-10.3); Carbon Dioxide 21.8 mmol/L (20.0-27.5); Chloride 102 mmol/L (96-109); Chol/HDL Ratio 5.19 Ratio; Globulin 3.2 g/dL (1.6-3.3); Glucose 122 mg/dL (70-110); LDL Cholesterol,Calculated 109.4 mg/dL (0.0-131.0); Non-African American GFR(CKD) 56.1 (60.0-200.0); Sodium 140 mmol/L (135-145); Total Protein 7.2 g/dL (6.2-8.2)
== END | disposition home or self-care (01) ==
LOC: LABWHC1 10:29
PROVIDERS: ATTEND Family Medicine
DX: Z00.00 Encounter for general adult medical examination without abnormal findings (principal); E55.9 Vitamin D deficiency, unspecified; E78.5 Hyperlipidemia, unspecified; R53.83 Other fatigue; Z13.220 Encounter for screening for lipoid disorders
CPT/HCPCS: 36415; 80053; 80061; 82043; 82306; 82570; 84439; 84443; 85025

== ENCOUNTER → 2021-11-29 | Outpatient (CLI) | payer MEDICARE, OTHER ==
[2021-11-29 11:30] VITALS: BP 178/101; PULSE 91; RESP 18; TEMP 98.2
== END ==
LOC: PROCWHC3 11:13
PROVIDERS: ATTEND Family Medicine
DX: Z00.00 Encounter for general adult medical examination without abnormal findings (principal); E55.9 Vitamin D deficiency, unspecified; E78.5 Hyperlipidemia, unspecified; R53.83 Other fatigue; Z13.220 Encounter for screening for lipoid disorders; E11.22 Type 2 diabetes mellitus with diabetic chronic kidney disease; Z87.891 Personal history of nicotine dependence; Z88.1 Allergy status to other antibiotic agents; Z88.5 Allergy status to narcotic agent; Z91.041 Radiographic dye allergy status; Z88.0 Allergy status to penicillin
CPT/HCPCS: 36591

== ENCOUNTER 2022-02-18 17:11 | Emergency (ER) | payer MEDICARE, OTHER ==
[2022-02-18 17:47] VITALS: TEMP 98.9
[2022-02-18] MEDS ORDERED: fentaNYL (PF) 50 MCG/ML 2 ML AMP IVP STA (21:16)
[2022-02-18] MEDS ORDERED: SODIUM CHLORIDE 0.9% 1,000 ML IV ONE (21:16)
--- NOTE | 2022-02-18 21:17 | ED ---
Extremity Problem HPI - General Chief complaint: Extremity Problem,Nontraumatic Stated complaint: Leg Infection,Sent by PCP Time Seen by Provider: 02/18/22 21:03 Source: patient, RN notes reviewed, old records reviewed Mode of arrival: ambulatory Limitations: no limitations - History of Present Illness Initial comments: This is a 41-year-old female that presents to the emergency room with complaints of bilateral lower extremity pain and infection for the past year and a half after a dog bite. Patient states that she has been in many hospitals for t reatment over the past year and a half. Most recently in December at [facility] where she was hospitalized for 4 days with IV antibiotics. Patient states that she was sent to the emergency room by her primary care doctor for IV antibiotics again. She states that he did prescribe her antibiotics yesterday over the phone. She denies any fevers. No nausea or vomiting. States that she cannot tolerate the pain which is why she came to the emergency room. She does have a history of asthma, diabetes, hypertension and chronic venous stasis. MD Complaint: extremity pain (BLLE) Location: bilateral lower extremity History of Same: Yes Severity scale (1-10): 10 Quality: constant Consistency: constant Improves with: nothing - Related Data Allergies Allergy/AdvReac Type Severity Reaction Status Date / Time cephalexin [From Keflex] Allergy Rash/Hives Verified 02/18/22 17:48 codeine Allergy Rash/Hives Verified 02/18/22 17:48 Iodine and Iodide Containing Allergy Anaphylaxis Verified 02/18/22 17:48 Produc penicillin V Allergy Rash/Hives Verified 02/18/22 17:48 Penicillins Allergy Rash/Hives Verified 02/18/22 17:48 sulfamethoxazole Allergy Rash/Hives Verified 02/18/22 17:48 [From Bactrim] trimethoprim [From Bactrim] Allergy Rash/Hives Verified 02/18/22 17:48 Review of Systems ROS Statement: Those systems with pertinent positive or pertinent negative responses have been documented in the HPI. ROS Other: All systems not noted in ROS Statement are negative. Past Medical History Past Medical History: Asthma, Chest Pain / Angina, Diabetes Mellitus, Hypertension Additional Past Medical History / Comment(s): CA History of Any Multi-Drug Resistant Organisms: MRSA Past Surgical History: Heart Catheterization With Stent Past Psychological History: No Psychological Hx Reported Smoking Status: Never smoker Past Alcohol Use History: None Reported Past Drug Use History: None Reported General Exam Limitations: no limitations General appearance: alert, in no apparent distress Head exam: Present: atraumatic Eye exam: Absent: scleral icterus, conjunctival injection, periorbital swelling ENT exam: Present: mucous membranes moist Respiratory exam: Absent: respiratory distress, accessory muscle use Cardiovascular Exam: Present: tachycardia GI/Abdominal exam: Present: soft Extremities exam: Present: pedal edema Left Lower Leg exam: Present: tenderness (Ulceration mid lower leg; hyperpigmentation), swelling Ankle exam: Absent: tenderness Foot/Toe exam: Absent: tenderness Neurovascular tendon exam: Absent: abnormal cap refill, extremity cold to touch, pallor, foot drop Right Lower Leg exam: Present: tenderness (Ulceration right lower leg anterior with hyperpigmentation), swelling Ankle exam: Absent: tenderness Neurovascular tendon exam: Present: no vascular compromise. Absent: abnormal cap refill, extremity cold to touch, pallor, foot drop Neurological exam: Present: alert, oriented X3 Psychiatric exam: Present: normal affect, normal mood, other (tearful) Skin exam: Present: warm. Absent: cyanosis, diaphoretic, pallor Course Vital Signs 02/18/22 02/18/22 17:43 23:59 Temperature 98.9 F Pulse Rate 113 H 89 Respiratory 22 15 Rate Blood Pressure 191/98 155/81 O2 Sat by Pulse 97 98 Oximetry Medical Decision Making - Medical Decision Making Patient presents with chronic bilateral lower extremity leg wounds the past year and a half after sustaining dog bites. Dr. Sena prescribed her a new antibiotic yesterday which she hasn't started yet. Denies any fevers. No nausea or vomiting. States that she was using [place]uka honey with some improvement but insurance company will no longer cover it. She has been having wound care come to the house. She states she changes her dressings daily. Labs show no evidence of leukocytosis. Patient has had no fevers. I did speak with Dr. Sena regarding plan of care. She'll be discharged home, directed to start antibiotics as prescribed and continue daily dressing changes. Follow-up with Dr Sena in the office next week. Patient is agreeable to this plan of care. Family at bedside. Case discussed with Dr. Birch - Lab Data Result diagrams: 02/18/22 21:57 02/18/22 21:57 Lab Results 02/18/22 02/18/22 02/18/22 Range/Units 21:57 21:57 21:57 WBC 5.4 (3.8-10.6) k/uL RBC 5.38 (3.80-5.40) m/uL Hgb 14.4 (11.4-16.0) gm/dL Hct 45.6 (34.0-46.0) % MCV 84.8 (80.0-100.0) fL MCH 26.7 (25.0-35.0) pg MCHC 31.5 (31.0-37.0) g/dL RDW 14.9 (11.5-15.5) % Plt Count 99 L (150-450) k/uL MPV 10.2 Neutrophils % 71 % Lymphocytes % 12 % Monocytes % 13 % Eosinophils % 2 % Basophils % 1 % Neutrophils # 3.8 (1.3-7.7) k/uL Lymphocytes # 0.6 L (1.0-4.8) k/uL Monocytes # 0.7 (0-1.0) k/uL Eosinophils # 0.1 (0-0.7) k/uL Basophils # 0.0 (0-0.2) k/uL Manual Slide Review Performed Hypochromasia Moderate Sodium 138 (137-145) mmol/L Potassium 4.0 (3.5-5.1) mmol/L Chloride 103 (98-107) mmol/L Carbon Dioxide 25 (22-30) mmol/L Anion Gap 10 mmol/L BUN 21 H (7-17) mg/dL Creatinine 0.88 (0.52-1.04) mg/dL Est GFR (CKD-EPI)AfAm >90 (>60 ml/min/1.73 sqM) Est GFR (CKD-EPI)NonAf 82 (>60 ml/min/1.73 sqM) Glucose 126 H (74-99) mg/dL Plasma Lactic Acid Dalton 1.7 (0.7-2.0) mmol/L Calcium 9.3 (8.4-10.2) mg/dL Total Bilirubin 1.4 H (0.2-1.3) mg/dL AST 27 (14-36) U/L ALT 17 (4-34) U/L Alkaline Phosphatase 104 (38-126) U/L Total Protein 7.7 (6.3-8.2) g/dL Albumin 4.6 (3.5-5.0) g/dL Urine Color Urine Appearance (Clear) Urine pH (5.0-8.0) Ur Specific [place] (1.001-1.035) Urine Protein (Negative) Urine Glucose (UA) (Negative) Urine Ketones (Negative) Urine Blood (Negative) Urine Nitrite (Negative) Urine Bilirubin (Negative) Urine Urobilinogen (<2.0) mg/dL Ur Leukocyte Esterase (Negative) Urine RBC (0-5) /hpf Urine WBC (0-5) /hpf Ur Squamous Epith Cells (0-4) /hpf Hyaline Casts (0-2) /lpf Urine Mucus (None) /hpf 02/18/22 Range/Units 21:57 WBC (3.8-10.6) k/uL RBC (3.80-5.40) m/uL Hgb (11.4-16.0) gm/dL Hct (34.0-46.0) % MCV (80.0-100.0) fL MCH (25.0-35.0) pg MCHC (31.0-37.0) g/dL RDW (11.5-15.5) % Plt Count (150-450) k/uL MPV Neutrophils % % Lymphocytes % % Monocytes % % Eosinophils % % Basophils % % Neutrophils # (1.3-7.7) k/uL Lymphocytes # (1.0-4.8) k/uL Monocytes # (0-1.0) k/uL Eosinophils # (0-0.7) k/uL Basophils # (0-0.2) k/uL Manual Slide Review Hypochromasia Sodium (137-145) mmol/L Potassium (3.5-5.1) mmol/L Chloride (98-107) mmol/L Carbon Dioxide (22-30) mmol/L Anion Gap mmol/L BUN (7-17) mg/dL Creatinine (0.52-1.04) mg/dL Est GFR (CKD-EPI)AfAm (>60 ml/min/1.73 sqM) Est GFR (CKD-EPI)NonAf (>60 ml/min/1.73 sqM) Glucose (74-99) mg/dL Plasma Lactic Acid Dalton (0.7-2.0) mmol/L Calcium (8.4-10.2) mg/dL Total Bilirubin (0.2-1.3) mg/dL AST (14-36) U/L ALT (4-34) U/L Alkaline Phosphatase (38-126) U/L Total Protein (6.3-8.2) g/dL Albumin (3.5-5.0) g/dL Urine Color Yellow Urine Appearance Cloudy H (Clear) Urine pH 5.5 (5.0-8.0) Ur Specific [place] 1.027 (1.001-1.035) Urine Protein 2+ H (Negative) Urine Glucose (UA) Negative (Negative) Urine Ketones Negative (Negative) Urine Blood Negative (Negative) Urine Nitrite Negative (Negative) Urine Bilirubin Negative (Negative) Urine Urobilinogen 2.0 (<2.0) mg/dL Ur Leukocyte Esterase Negative (Negative) Urine RBC 2 (0-5) /hpf Urine WBC 3 (0-5) /hpf Ur Squamous Epith Cells 1 (0-4) /hpf Hyaline Casts 1 (0-2) /lpf Urine Mucus Rare H (None) /hpf Disposition Clinical Impression: Chronic ulcer of left leg, Chronic ulcer of right leg Disposition: HOME SELF-CARE Condition: Good Instructions (If sedation given, give patient instructions): Chronic Wound Care (ED), Chronic Wounds (ED) Additional Instructions: Continue antibiotics as prescribed by your primary care doctor. Continue with wound care as previously directed. Follow-up with your doctors next week. Return to the emergency room with any new or concerning symptoms including fevers or persistent nausea vomiting. Is patient prescribed a controlled substance at d/c from ED?: No Referrals: Odell Sena MD [Primary Care Provider] - 1-2 days Time of Disposition: 00:09
[2022-02-18 22:45] LABS: Basophils % (A) 1 %; Eosinophils # (A) 0.1 k/uL (0-0.7); Eosinophils % (A) 2 %; HCT 45.6 % (34.0-46.0); HGB 14.4 gm/dL (11.4-16.0); Hypochromasia Moderate; Lymphocytes # (A) 0.6 k/uL (1.0-4.8); Lymphocytes % (A) 12 %; MCH 26.7 pg (25.0-35.0); MCHC 31.5 g/dL (31.0-37.0); MCV 84.8 fL (80.0-100.0); Mean Platelet Volume 10.2; Monocytes # (A) 0.7 k/uL (0-1.0); Monocytes % (A) 13 %; Neutrophils # (A) 3.8 k/uL (1.3-7.7); Neutrophils % (A) 71 %; RBC 5.38 m/uL (3.80-5.40); RDW 14.9 % (11.5-15.5); WBC 5.4 k/uL (3.8-10.6)
[2022-02-18 22:48] LABS: ALT 17 U/L (4-34); AST 27 U/L (14-36); African American GFR (CKD) >90 (>60 ml/min/1.73 sqM); Albumin 4.6 g/dL (3.5-5.0); Alkaline Phosphatase 104 U/L (38-126); Anion Gap 10 mmol/L; Blood Urea Nitrogen 21 mg/dL (7-17); Calcium 9.3 mg/dL (8.4-10.2); Carbon Dioxide 25 mmol/L (22-30); Chloride 103 mmol/L (98-107); Glucose 126 mg/dL (74-99); Non-African American GFR(CKD) 82 (>60 ml/min/1.73 sqM); Sodium 138 mmol/L (137-145); Total Bilirubin 1.4 mg/dL (0.2-1.3); Total Protein 7.7 g/dL (6.3-8.2)
[2022-02-18 23:27] LABS: Appearance,Urine Cloudy (Clear); Bilirubin,Urine Negative (Negative); Blood,Urine Negative (Negative); Color,Urine Yellow; Glucose,Urine (UA) Negative (Negative); Hyaline Casts,Urine 1 /lpf (0-2); Ketones,Urine Negative (Negative); Leukocyte Esterase,Urine Negative (Negative); Mucus,Urine Rare /hpf; Nitrite,Urine Negative (Negative); PH, Urine 5.5 (5.0-8.0); Protein,Urine 2+ (Negative); RBC,Urine 2 /hpf (0-5); Specific Gravity,Urine 1.027 (1.001-1.035); Squamous Epithelial Cell,Urine 1 /hpf (0-4); WBC,Urine 3 /hpf (0-5)
[2022-02-18 23:34] LABS: Platelet Count 99 k/uL (150-450)
[2022-02-19] VITALS: RESP 15
[2022-02-19 01:29] VITALS: BP 148/71; PULSE 78
== END 2022-02-19 01:41 | disposition home or self-care (01) ==
LOC: EC 17:11 → MERGE 17:11 → EC 02-19 01:41
DX: L97.929 Non-pressure chronic ulcer of unspecified part of left lower leg with unspecified severity (principal); L97.919 Non-pressure chronic ulcer of unspecified part of right lower leg with unspecified severity; J45.909 Unspecified asthma, uncomplicated; I10 Essential (primary) hypertension; E11.9 Type 2 diabetes mellitus without complications; Z88.0 Allergy status to penicillin; Z88.1 Allergy status to other antibiotic agents; Z88.2 Allergy status to sulfonamides; Z88.8 Allergy status to other drugs, medicaments and biological substances
CPT/HCPCS: 36415; 80053; 83605; 85025; 81001; 99283; 96374; 96361; J3010

== ENCOUNTER 2022-03-14 15:25 | Inpatient (IN) | payer MEDICARE, OTHER ==
[2022-03-14] MEDS ORDERED: FUROSEMIDE 10 MG/ML 4 ML VIAL IV STA (15:38)
[2022-03-14 16:36] LABS: Albumin 3.7 g/dL (3.5-5.0); Magnesium 1.6 mg/dL (1.6-2.3); Potassium 3.8 mmol/L (3.5-5.1); Total Bilirubin 2.3 mg/dL (0.2-1.3); Total Protein 6.8 g/dL (6.3-8.2)
[2022-03-14 16:41] LABS: Basophils % (A) 0 %; Eosinophils # (A) 0.1 k/uL (0-0.7); Eosinophils % (A) 1 %; HCT 42.2 % (34.0-46.0); HGB 13.2 gm/dL (11.4-16.0); Hypochromasia Marked; Lymphocytes # (A) 0.5 k/uL (1.0-4.8); Lymphocytes % (A) 10 %; MCHC 31.3 g/dL (31.0-37.0); MCV 83.1 fL (80.0-100.0); Mean Platelet Volume 9.5; Monocytes # (A) 0.4 k/uL (0-1.0); Monocytes % (A) 7 %; Neutrophils # (A) 3.9 k/uL (1.3-7.7); Neutrophils % (A) 79 %; RBC 5.08 m/uL (3.80-5.40); RDW 14.9 % (11.5-15.5)
[2022-03-14 16:46] LABS: INR 1.3 (<1.2); Partial Thromboplastin Time 24.2 sec (22.0-30.0); Platelet Count 165 k/uL (150-450); Prothrombin Time 13.2 sec (9.0-12.0)
--- NOTE | 2022-03-14 17:39 | XR ---
EXAMINATION TYPE: XR chest 2V DATE OF EXAM: 03/14/2022 5:03 PM COMPARISON: Chest radiographs from 08/26/2021 TECHNIQUE: XR chest 2V Frontal and lateral views of the chest. CLINICAL INDICATION:Female, 41 years old with history of difficulty breathing; FINDINGS: Lungs/Pleura: There is no evidence of pleural effusion, focal consolidation, or pneumothorax. Pulmonary vascularity: Unremarkable. Heart/mediastinum: Cardiomediastinal silhouette is enlarged and stable. Musculoskeletal: No acute osseous pathology. IMPRESSION: 1. No acute cardiopulmonary disease/process. 2. Cardia megaly, similar to prior. Correlate with serum BNP.
[2022-03-14] MEDS ORDERED: ASPIRIN 81 MG PO STA (18:02)
[2022-03-14] MEDS ORDERED: NALOXONE 0.4 MG/ML 1 ML VIAL IV PRN (18:43)
[2022-03-14] MEDS ORDERED: ALBUTEROL HFA INHALER INHALATION PRN (18:45)
[2022-03-14] MEDS: OSELTAMIVIR 75 MG CAP PO SCH (19:40)
[2022-03-14] MEDS: ATORVASTATIN 80 MG TAB PO SCH (19:40)
[2022-03-14] MEDS: PANTOPRAZOLE 40 MG TABLET PO SCH (19:40)
[2022-03-14] MEDS: ALPRAZolam 1 MG TAB PO SCH (19:40)
[2022-03-14] MEDS: APIXABAN 2.5 MG TABLET PO SCH (19:40)
[2022-03-14 20:34] LABS: Glucose,Whole Blood 178 mg/dL (70-110)
[2022-03-14] MEDS ORDERED: ACETAMINOPHEN TAB 500 MG TAB PO STA (20:50)
--- NOTE | 2022-03-14 20:52 | ED ---
General Adult HPI - General Chief complaint: Shortness of Breath Stated complaint: SOB Time Seen by Provider: 03/14/22 15:30 Source: patient, EMS, RN notes reviewed, old records reviewed Mode of arrival: EMS Limitations: no limitations - History of Present Illness Initial comments: Patient is a 41-year-old female with past medical history remarkable for atrial fibrillation on blood thinners, asthma, COPD, angina, heart failure, diabetes who presents to [facility] complaining of worsening shortness of breath. Has been ongoing for multiple days to weeks. Describes progression of worsening dyspnea. Endorses worsening orthopnea. Endorses worsening lower extremity edema. Does have chronic weeping venostasis ulcers which are treated by wound care last treated this morning. She does endorse a mild cough that is nonproductive. Endorses nasal congestion. Denies fevers. Denies chest pain or nausea or vomiting. Denies diarrhea. No other acute complaints at this time. Presents over concern for possible infectious etiology or heart failure exacerbation. - Related Data Home Medications Medication Instructions Recorded Confirmed Ferrous Sulfate [Iron] 325 mg PO DAILY 07/11/18 03/14/22 Semaglutide [Ozempic] 0.5 mg SQ MO@2100 11/19/19 03/14/22 Insulin Glargine,Hum.rec.anlog 40 unit SQ BID 08/07/20 03/14/22 [Lantus Solostar Pen] Aspirin EC [Ecotrin Low Dose] 81 mg PO DAILY 03/06/21 03/14/22 Empagliflozin [Jardiance] 25 mg PO DAILY 07/29/21 03/14/22 Losartan Potassium [Cozaar] 100 mg PO DAILY 07/29/21 03/14/22 Metoprolol Succinate (ER) [Toprol 100 mg PO DAILY 07/29/21 03/14/22 XL] Spironolactone 25 mg PO DAILY 07/29/21 03/14/22 hydrALAZINE HCL [Apresoline] 100 mg PO DAILY 07/29/21 03/14/22 Montelukast Sodium [Singulair] 10 mg PO HS 08/26/21 03/14/22 Nitroglycerin 0.4MG/Hr Patch 1 patch TRANSDERM DAILY PRN 08/26/21 03/14/22 [Nitro-Dur 0.4MG/Hr Patch] HYDROmorphone [Dilaudid] 4 mg PO Q4H PRN 09/27/21 03/14/22 ALPRAZolam [Xanax] 1 mg PO BID 03/14/22 03/14/22 Albuterol Inhaler [Ventolin Hfa 1 - 2 puff INHALATION RT-QID PRN 03/14/22 03/14/22 Inhaler] Apixaban [Eliquis] 2.5 mg PO BID 03/14/22 03/14/22 Ondansetron [Zofran] 4 mg PO Q6H PRN 03/14/22 03/14/22 Torsemide [Demadex] 20 mg PO DAILY 03/14/22 03/14/22 Vericiguat [Verquvo] 2.5 mg PO DAILY 03/14/22 03/14/22 cloNIDine HCL [Catapres] 0.1 mg PO HS 03/14/22 03/14/22 metOLazone [Zaroxolyn] 10 mg PO DAILY 03/14/22 03/14/22 Previous Rx's Medication Instructions Recorded Atorvastatin [Lipitor] 80 mg PO HS #30 tab 12/06/18 Clopidogrel [Plavix] 75 mg PO DAILY #30 tab 12/06/18 Ezetimibe [Zetia] 10 mg PO DAILY #30 tab 02/02/21 Pantoprazole [Protonix] 40 mg PO BID #60 tab 02/02/21 Allergies Allergy/AdvReac Type Severity Reaction Status Date / Time cephalexin [From Keflex] Allergy Rash/Hives Verified 03/14/22 17:57 codeine Allergy Rash/Hives Verified 03/14/22 17:57 Iodine and Iodide Containing Allergy Rash/Hives Verified 03/14/22 17:57 Produc levofloxacin [From Levaquin] Allergy Rash/Hives Verified 03/14/22 17:57 penicillin V Allergy Rash/Hives Verified 03/14/22 17:57 Penicillins Allergy Anaphylaxis Verified 03/14/22 17:57 sulfamethoxazole Allergy Rash/Hives Verified 03/14/22 17:57 [From Bactrim] tramadol Allergy Rash/Hives Verified 03/14/22 17:57 trimethoprim [From Bactrim] Allergy Rash/Hives Verified 03/14/22 17:57 Review of Systems ROS Statement: Those systems with pertinent positive or pertinent negative responses have been documented in the HPI. Review of Systems: CONST: Denies fever EYES: Denies blurry vision ENT: Endorses nasal congestion C/V: Denies Chest pain RESP: Endorses cough GI: Denies abdominal pain : Denies dysuria SKIN: Denies rash. MSK: Denies joint pain. NEURO: Denies headache ROS Other: All systems not noted in ROS Statement are negative. Past Medical History Past Medical History: Atrial Fibrillation, Asthma, Coronary Artery Disease (CAD), Cancer, Chest Pain / Angina, Heart Failure, Diabetes Mellitus, GERD/Reflux, Hyperlipidemia, Hypertension, Myocardial Infarction (DE), Pulmonary Embolus (PE), Renal Disease, Respiratory Disorder Additional Past Medical History / Comment(s): CA Last Myocardial Infarction Date:: 04/2019 History of Any Multi-Drug Resistant Organisms: MRSA, None Reported Past Surgical History: Section, Heart Catheterization With Stent, Joint Replacement, Tonsillectomy, Tubal Ligation Additional Past Surgical History / Comment(s): Partial R knee replacement, PCI/stents, surgery for PE/radiation. 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 Date of Last Stent Placement:: 05/08/19 Past Psychological History: Anxiety, Bipolar, Depression, No Psychological Hx Reported, Schizophrenia Smoking Status: Former smoker, Never smoker Past Alcohol Use History: None Reported Past Drug Use History: None Reported - Past Family History Father Family Medical History: Coronary Artery Disease (CAD), Hyperlipidemia, Hypertension Additional Family Medical History / Comment(s): pins in knee, heart stents x 4. Father is Mother Family Medical History: Coronary Artery Disease (CAD), Dementia, Diabetes Mellitus, Musculoskeletal Disorder, Renal Disease Additional Family Medical History / Comment(s): Parkinson's, stents in heart, neuropathy. General Exam - General Exam Comments Initial Comments: General: Appears in no acute distress. HEAD: Normal with no signs of head trauma. EYES: PERRLA, EOMI, conjunctiva normal, no discharge. ENT: Hearing grossly intact, normal oropharynx. RESPIRATORY: Clear breath sounds bilaterally. No wheezes, rales, or rhonchi. No hypoxia. C/V: Irregular rate and rhythm. S1 and S2 auscultated. Peripheral pulses 2+ and intact throughout. Bilateral symmetrical pitting edema in bilateral lower extremities. ABD: Abd is soft, nontender, nondistended EXT: Normal range of motion, no obvious deformity SKIN: No neck weeping venostasis ulcers which appear clean. NEURO: Alert and oriented x 4. Cranial nerves II-XII intact. No focal sensory or strength deficits. 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 We will obtain infectious labs, chest x-ray, prior pulmonary labs. She was in agreement this plan. Vital signs within acceptable limits, however her A. fib is slightly elevated at this time. Is likely secondary to the underlying process. Is already on blood thinning medications. She was in agreement this plan. EKG shows no signs of acute ischemia. Chest x-ray as interpreted by myself reveals very mild bilateral pulmonary vascular congestion. Laboratory studies are remarkable for a slightly elevated troponin of 0.049 which is likely sec ondary to underlying etiology. BNP is 3000 which is typical for her. Patient is influenza positive, Covid positive. I discussed the results with the patient. She is feeling improved at this time. It is possible she is having a mild CHF exacerbation that I do believe most of her symptoms are secondary to infectious etiology being Covid and flu positive. She will receive a dose of Lasix but we will continue her home diuretics until evaluation by cardiology. Echo will be ordered. Cardiology was consulted. Patient is also having her infectious etiology, and will be started on Tamiflu for influenza A. She was in agreement this plan. Vital signs remained within acceptable limits at this time. She'll be admitted to the hospital at this time. A. fib is better controlled at this point, with heart rates mostly below 110. We will continue to monitor fevers and treat with Tylenol as needed. She was in agreement this plan. I spoke the admitting team, [facility] who is covering for [facility] who accepted the patient. I spoke with MAXWELL Jarrett. - Lab Data Result diagrams: 03/14/22 16:12 03/14/22 16:12 Lab Results 03/14/22 03/14/22 03/14/22 Range/Units 16:12 16:12 16:12 WBC 5.0 (3.8-10.6) k/uL RBC 5.08 (3.80-5.40) m/uL Hgb 13.2 (11.4-16.0) gm/dL Hct 42.2 (34.0-46.0) % MCV 83.1 (80.0-100.0) fL MCH 26.0 (25.0-35.0) pg MCHC 31.3 (31.0-37.0) g/dL RDW 14.9 (11.5-15.5) % Plt Count 165 D (150-450) k/uL MPV 9.5 Neutrophils % 79 % Lymphocytes % 10 % Monocytes % 7 % Eosinophils % 1 % Basophils % 0 % Neutrophils # 3.9 (1.3-7.7) k/uL Lymphocytes # 0.5 L (1.0-4.8) k/uL Monocytes # 0.4 (0-1.0) k/uL Eosinophils # 0.1 (0-0.7) k/uL Basophils # 0.0 (0-0.2) k/uL Hypochromasia Marked PT 13.2 H (9.0-12.0) sec INR 1.3 H (<1.2) APTT 24.2 (22.0-30.0) sec Sodium 139 (137-145) mmol/L Potassium 3.8 (3.5-5.1) mmol/L Chloride 104 (98-107) mmol/L Carbon Dioxide 26 (22-30) mmol/L Anion Gap 9 mmol/L BUN 20 H (7-17) mg/dL Creatinine 1.05 H (0.52-1.04) mg/dL Est GFR (CKD-EPI)AfAm 76 (>60 ml/min/1.73 sqM) Est GFR (CKD-EPI)NonAf 66 (>60 ml/min/1.73 sqM) Glucose 170 H (74-99) mg/dL Plasma Lactic Acid Dalton (0.7-2.0) mmol/L Calcium 9.0 (8.4-10.2) mg/dL Magnesium 1.6 (1.6-2.3) mg/dL Total Bilirubin 2.3 H (0.2-1.3) mg/dL AST 21 (14-36) U/L ALT 14 (4-34) U/L Alkaline Phosphatase 85 (38-126) U/L Troponin I (0.000-0.034) ng/mL NT-Pro-B Natriuret Pep pg/mL Total Protein 6.8 (6.3-8.2) g/dL Albumin 3.7 (3.5-5.0) g/dL Influenza Type A (PCR) (Not Detectd) Influenza Type B (PCR) (Not Detectd) RSV (PCR) (Not Detectd) SARS-CoV-2 (PCR) (Not Detectd) 03/14/22 03/14/22 03/14/22 Range/Units 16:12 16:12 16:12 WBC (3.8-10.6) k/uL RBC (3.80-5.40) m/uL Hgb (11.4-16.0) gm/dL Hct (34.0-46.0) % MCV (80.0-100.0) fL MCH (25.0-35.0) pg MCHC (31.0-37.0) g/dL RDW (11.5-15.5) % Plt Count (150-450) k/uL MPV Neutrophils % % Lymphocytes % % Monocytes % % Eosinophils % % Basophils % % Neutrophils # (1.3-7.7) k/uL Lymphocytes # (1.0-4.8) k/uL Monocytes # (0-1.0) k/uL Eosinophils # (0-0.7) k/uL Basophils # (0-0.2) k/uL Hypochromasia PT (9.0-12.0) sec INR (<1.2) APTT (22.0-30.0) sec Sodium (137-145) mmol/L Potassium (3.5-5.1) mmol/L Chloride (98-107) mmol/L Carbon Dioxide (22-30) mmol/L Anion Gap mmol/L BUN (7-17) mg/dL Creatinine (0.52-1.04) mg/dL Est GFR (CKD-EPI)AfAm (>60 ml/min/1.73 sqM) Est GFR (CKD-EPI)NonAf (>60 ml/min/1.73 sqM) Glucose (74-99) mg/dL Plasma Lactic Acid Dalton 1.5 (0.7-2.0) mmol/L Calcium (8.4-10.2) mg/dL Magnesium (1.6-2.3) mg/dL Total Bilirubin (0.2-1.3) mg/dL AST (14-36) U/L ALT (4-34) U/L Alkaline Phosphatase (38-126) U/L Troponin I 0.049 H* (0.000-0.034) ng/mL NT-Pro-B Natriuret Pep 3090 pg/mL Total Protein (6.3-8.2) g/dL Albumin (3.5-5.0) g/dL Influenza Type A (PCR) (Not Detectd) Influenza Type B (PCR) (Not Detectd) RSV (PCR) (Not Detectd) SARS-CoV-2 (PCR) (Not Detectd) 03/14/22 Range/Units 16:12 WBC (3.8-10.6) k/uL RBC (3.80-5.40) m/uL Hgb (11.4-16.0) gm/dL Hct (34.0-46.0) % MCV (80.0-100.0) fL MCH (25.0-35.0) pg MCHC (31.0-37.0) g/dL RDW (11.5-15.5) % Plt Count (150-450) k/uL MPV Neutrophils % % Lymphocytes % % Monocytes % % Eosinophils % % Basophils % % Neutrophils # (1.3-7.7) k/uL Lymphocytes # (1.0-4.8) k/uL Monocytes # (0-1.0) k/uL Eosinophils # (0-0.7) k/uL Basophils # (0-0.2) k/uL Hypochromasia PT (9.0-12.0) sec INR (<1.2) APTT (22.0-30.0) sec Sodium (137-145) mmol/L Potassium (3.5-5.1) mmol/L Chloride (98-107) mmol/L Carbon Dioxide (22-30) mmol/L Anion Gap mmol/L BUN (7-17) mg/dL Creatinine (0.52-1.04) mg/dL Est GFR (CKD-EPI)AfAm (>60 ml/min/1.73 sqM) Est GFR (CKD-EPI)NonAf (>60 ml/min/1.73 sqM) Glucose (74-99) mg/dL Plasma Lactic Acid Dalton (0.7-2.0) mmol/L Calcium (8.4-10.2) mg/dL Magnesium (1.6-2.3) mg/dL Total Bilirubin (0.2-1.3) mg/dL AST (14-36) U/L ALT (4-34) U/L Alkaline Phosphatase (38-126) U/L Troponin I (0.000-0.034) ng/mL NT-Pro-B Natriuret Pep pg/mL Total Protein (6.3-8.2) g/dL Albumin (3.5-5.0) g/dL Influenza Type A (PCR) Detected A (Not Detectd) Influenza Type B (PCR) Not Detected (Not Detectd) RSV (PCR) Not Detected (Not Detectd) SARS-CoV-2 (PCR) Detected A (Not Detectd) Disposition Clinical Impression: Influenza A, COVID-19 virus infection, Atrial fibrillation Disposition: ADMITTED IP TO THIS HOSP Condition: Stable Time of Disposition: 18:20
[2022-03-14] MEDS ORDERED: FUROSEMIDE 10 MG/ML 4 ML VIAL IV SCH (21:00)
[2022-03-14] MEDS ORDERED: cloNIDine HCL 0.1 MG TAB PO SCH (21:00)
[2022-03-14] MEDS: INSULIN DETEMIR (LEVEMIR) 100 UNIT/ML SYR SQ SCH (22:16)
[2022-03-14] MEDS: hydrALAZINE HCL 50 MG TAB PO SCH (23:25)
--- NOTE | 2022-03-15 01:43 | HP ---
HISTORY AND PHYSICAL CHIEF COMPLAINT: Fever and chills, cough, and shortness of breath. HISTORY OF PRESENT ILLNESS: This is another admission for this lady who has severe class 5 HFpEF heart failure. She has developed cough, fever, and upper respiratory symptoms and became more short of breath. She came to the emergency room. She has a long-standing history of uncontrolled hypertension as well. She was diagnosed as having both influenza and COVID. REVIEW OF SYSTEMS: She has no neurologic problems, chest pain, abdominal pain, diarrhea, urinary symptoms, etc. Past medical history, family history, personal and social histories are extensive in detail. Lately, she has been battling venous stasis disease with cellulitis and open ulcers which have been very slowly improving. She is a heart transplant candidate at [facility]. PHYSICAL EXAMINATION: VITAL SIGNS: Blood pressure is 217/138 with a pulse of 82, respirations of 35, and temperature of 99. GENERAL: She appeared to be obese and slightly short of breath. FACE: Flushed and somewhat edematous. CHEST: Demonstrated poor breath sounds throughout. There were scattered rales and scattered rhonchi, and she had a productive cough. ABDOMEN: Slightly protuberant, soft, and nontender. EXTREMITIES: Normal except for the lower extremities revealing her stasis disease with dermatitis and ulcers. IMPRESSION: 1. COVID pneumonia. 2. Influenza. 3. Stage 5 heart failure with preserved ejection fraction. 4. Cardiomyopathy. PLAN: 1. Bedrest. 2. IV fluids. 3. Pulmonology consult. URBANO / CHERYL: [id number] /
[2022-03-15 04:28] LABS: Potassium 4.1 mmol/L (3.5-5.1)
[2022-03-15 04:50] LABS: HCT 41.3 % (34.0-46.0); Hypochromasia Marked; MCH 26.3 pg (25.0-35.0); MCHC 31.5 g/dL (31.0-37.0); MCV 83.3 fL (80.0-100.0); Mean Platelet Volume 8.6; Platelet Count 156 k/uL (150-450); RBC 4.96 m/uL (3.80-5.40); RDW 15.3 % (11.5-15.5); WBC 4.1 k/uL (3.8-10.6)
[2022-03-15] MEDS: PANTOPRAZOLE 40 MG TABLET PO SCH ×2 (06:10→16:49)
[2022-03-15] MEDS: cloNIDine HCL 0.1 MG TAB PO SCH ×3 (06:14→22:49)
[2022-03-15 07:47] LABS: Glucose,Whole Blood 114 mg/dL (70-110)
[2022-03-15] MEDS: METOPROLOL SUCCINATE (ER) 100 MG TAB.ER.24H PO SCH (08:36)
[2022-03-15] MEDS: LOSARTAN 50 MG TAB PO SCH (08:36)
[2022-03-15] MEDS: ACETAMINOPHEN TAB 500 MG TAB PO PRN (08:37)
[2022-03-15] MEDS: CLOPIDOGREL 75 MG TAB PO SCH (08:38)
[2022-03-15] MEDS: EZETIMIBE 10 MG TAB PO SCH (08:39)
[2022-03-15] MEDS: APIXABAN 2.5 MG TABLET PO SCH ×2 (08:39→20:29)
[2022-03-15] MEDS: ALPRAZolam 1 MG TAB PO SCH ×2 (08:39→20:29)
[2022-03-15] MEDS: SPIRONOLACTONE 25 MG TAB PO SCH (08:39)
[2022-03-15] MEDS: TORSEMIDE 20 MG TAB PO SCH ×2 (08:40→08:49)
[2022-03-15] MEDS: OSELTAMIVIR 75 MG CAP PO SCH (08:40)
[2022-03-15] MEDS: metOLazone 5 MG TAB PO SCH (08:41)
[2022-03-15] MEDS: hydrALAZINE HCL 50 MG TAB PO SCH ×3 (08:43→22:49)
[2022-03-15] MEDS: INSULIN DETEMIR (LEVEMIR) 100 UNIT/ML SYR SQ SCH ×2 (08:49→20:35)
[2022-03-15] MEDS: DAPAGLIFLOZIN PROPANEDIOL 10 MG TABLET PO SCH (08:49)
[2022-03-15] MEDS ORDERED: ASPIRIN 81 MG PO SCH (09:00)
[2022-03-15] MEDS ORDERED: hydrALAZINE HCL 50 MG TAB PO SCH (09:00)
[2022-03-15] MEDS: VERICIGUAT 2.5 MG PO SCH (10:12)
[2022-03-15 10:13] LABS: Basophils # (M) 0.04 k/uL (0-0.2); Lymphocytes # (M) 0.53 k/uL (1.0-4.8); Monocytes # (M) 0.29 k/uL (0-1.0); Neutrophils # (M) 3.24 k/uL (1.3-7.7); Neutrophils % (M) 79 %; Nucleated Red Blood Cells 0 /100 WBC (0-0); Total Cells Counted 100
[2022-03-15] MEDS ORDERED: HYDROmorphone 4 MG TABLET PO PRN (12:49)
[2022-03-15] MEDS ORDERED: NITROGLYCERIN 0.4MG/HR PATCH TRANSDERM PRN (12:49)
[2022-03-15] MEDS ORDERED: ONDANSETRON 4 MG TAB PO PRN (12:49)
--- NOTE | 2022-03-15 15:04 | CONS ---
CONSULTATION This is a 41-year-old lady with a known history of type 2 diabetes mellitus, hypertension, hypercholesterolemia, CAD, and also underwent multivessel PCI in the past. There was a question of apical thrombus, and she is on a combination of Eliquis and Plavix. She has had previous multivessel PCI, but the last cardiac catheterization revealed that her vessels were patent without any significant stenosis, and this cardiac catheterization was performed in August of this year by Dr. Everett. The patient had patent stents in the LAD and circumflex with mild disease in RCA, which was a dominant vessel. Continued medical therapy was advised. She is here mainly with complaints of increasing fatigue, weakness, shortness of breath, and also has had some lower extremity edema. After arrival, she was found to be positive for COVID as well as for influenza A. I am asked to see her because of elevated troponin. Her troponin profile is 0.07 and 0.08, does not suggest any typical pattern. While she may have CAD, I do not believe we are dealing with any acute myocardial injury. Her BNP is up to 3090. Her renal function is also mildly abnormal. She has been diuresed. At the time of my evaluation, she is resting comfortably. All her home medications were resumed. She is on apixaban and Plavix combination. I recommended that we discontinue the aspirin altogether. She is also on losartan and metoprolol succinate, both of which will be continued. Her chest x-ray does not reveal any clear-cut infiltrate, but there is evidence of some mild borderline pulmonary vascular congestion. I am recommending that we continue current medications, which we include diuretics and beta- blockers, and based on clinical course, we will make further recommendations. She has received Lasix 40 mg IV push, and she is currently on Demadex 20 mg daily, which we will continue. The patient's heart failure appears to be mild. Please refer to the physical examination by other physicians. I did not do a detailed physical exam on this patient. I am recommending that we continue current medical regimen, resume all her cardiac medications, and also, she is scheduled to have an echocardiogram to assess LV function, and we will also look at the apical thrombus that was there 5 to 6 months ago. Overall prognosis remains guarded. MMODL / IJN: [id number] /
[2022-03-15] MEDS ORDERED: SODIUM CHLORIDE 0.9% 500 ML 250 ML IV ONE (16:25)
[2022-03-15 20:09] LABS: Glucose,Whole Blood 156 mg/dL (70-110)
[2022-03-15] MEDS: ATORVASTATIN 80 MG TAB PO SCH (20:29)
[2022-03-15] MEDS: MONTELUKAST 10 MG TAB PO SCH (20:29)
[2022-03-15] MEDS: HYDROmorphone 2 MG TAB PO PRN (20:34)
[2022-03-15] MEDS: OSELTAMIVIR 60 MG/10 ML ORAL SYRINGE PO SCH (20:35)
--- NOTE | 2022-03-16 01:02 | PN ---
PROGRESS NOTE DATE OF SERVICE: 03/15/2022 CHIEF COMPLAINT: Cough, shortness of breath, influenza, and COVID. HISTORY OF PRESENT ILLNESS: This lady is still slightly short of breath. Her troponins are all positive and she is being seen by Cardiology. REVIEW OF SYSTEMS: She denies any chest pain, abdominal pain, nausea, etc. PHYSICAL EXAMINATION: VITAL SIGNS: Normal. CHEST: Demonstrates decreased breath sounds with occasional rales. CARDIAC: Demonstrates sinus tachycardia. ABDOMEN: Soft and nontender. IMPRESSION: 1. Shortness of breath. 2. Influenza. 3. COVID. 4. Elevated troponin. 5. Atherosclerotic cardiomyopathy. 6. Elevated troponins. PLAN: IV fluids, nasal O2, and Cardiology consult. MMODL / IJN: [id number] /
[2022-03-16 05:47] LABS: Glucose,Whole Blood 74 mg/dL (70-110)
[2022-03-16] MEDS: HYDROmorphone 2 MG TAB PO PRN ×2 (05:48→21:12)
[2022-03-16] MEDS: PANTOPRAZOLE 40 MG TABLET PO SCH ×2 (05:48→16:58)
[2022-03-16] MEDS: TORSEMIDE 20 MG TAB PO SCH (08:52)
[2022-03-16] MEDS: DAPAGLIFLOZIN PROPANEDIOL 10 MG TABLET PO SCH (08:52)
[2022-03-16] MEDS: metOLazone 5 MG TAB PO SCH (08:52)
[2022-03-16] MEDS: OSELTAMIVIR 60 MG/10 ML ORAL SYRINGE PO SCH (08:53)
[2022-03-16] MEDS: INSULIN DETEMIR (LEVEMIR) 100 UNIT/ML SYR SQ SCH ×2 (08:53→21:13)
[2022-03-16] MEDS: ALPRAZolam 1 MG TAB PO SCH ×2 (08:54→21:05)
[2022-03-16] MEDS: EZETIMIBE 10 MG TAB PO SCH (08:54)
[2022-03-16] MEDS: cloNIDine HCL 0.1 MG TAB PO SCH ×2 (08:54→08:59)
[2022-03-16] MEDS: APIXABAN 2.5 MG TABLET PO SCH ×2 (08:54→21:05)
[2022-03-16] MEDS: SPIRONOLACTONE 25 MG TAB PO SCH (08:54)
[2022-03-16] MEDS: CLOPIDOGREL 75 MG TAB PO SCH (08:54)
[2022-03-16] MEDS: LOSARTAN 50 MG TAB PO SCH ×2 (08:54→08:59)
[2022-03-16] MEDS: hydrALAZINE HCL 50 MG TAB PO SCH ×3 (08:55→16:58)
[2022-03-16] MEDS: FERROUS SULFATE 325 MG TAB PO SCH (08:55)
[2022-03-16] MEDS: METOPROLOL SUCCINATE (ER) 100 MG TAB.ER.24H PO SCH ×2 (08:55→08:59)
[2022-03-16] MEDS: VERICIGUAT 2.5 MG PO SCH (08:56)
[2022-03-16 11:37] LABS: Glucose,Whole Blood 120 mg/dL (70-110)
[2022-03-16 12:25] LABS: Calcium 8.1 mg/dL (8.4-10.2)
--- NOTE | 2022-03-16 14:05 | P.GSCN ---
History of Present Illness Consult date: 03/16/22 Reason for Consult: Bilateral leg ulcers Requesting physician: Odell Sena History of present illness: This patient has a history of several months of treating for ulcers in both lower extremities. She had some issues with local wound care and is following and bad ax.. Past Medical History Past Medical History: Atrial Fibrillation, Asthma, Coronary Artery Disease (CA D), Cancer, Chest Pain / Angina, Heart Failure, Diabetes Mellitus, GERD/Reflux, Hyperlipidemia, Hypertension, Myocardial Infarction ([place]), Pulmonary Embolus (PE), Renal Disease, Respiratory Disorder Additional Past Medical History / Comment(s): CA Last Myocardial Infarction Date:: 04/2019 History of Any Multi-Drug Resistant Organisms: None Reported Past Surgical History: Section, Heart Catheterization With Stent, Joint Replacement, Tonsillectomy, Tubal Ligation Additional Past Surgical History / Comment(s): Partial R knee replacement, PCI/stents, surgery for PE/radiation. 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 Date of Last Stent Placement:: 05/08/19 Past Psychological History: Anxiety, Bipolar, Depression, No Psychological Hx Reported, Schizophrenia Smoking Status: Former smoker, Never smoker Past Alcohol Use History: None Reported Past Drug Use History: None Reported - Past Family History Father Family Medical History: Coronary Artery Disease (CAD), Hyperlipidemia, Hyperte nsion Additional Family Medical History / Comment(s): pins in knee, heart stents x 4. Father is Mother Family Medical History: Coronary Artery Disease (CAD), Dementia, Diabetes Mellitus, Musculoskeletal Disorder, Renal Disease Additional Family Medical History / Comment(s): Parkinson's, stents in heart, neuropathy. Medications and Allergies Home Medications Medication Instructions Recorded Confirmed Type Ferrous Sulfate [Iron] 325 mg PO DAILY 07/11/18 03/14/22 History Atorvastatin [Lipitor] 80 mg PO HS #30 tab 12/06/18 03/14/22 Rx Clopidogrel [Plavix] 75 mg PO DAILY #30 tab 12/06/18 03/14/22 Rx Semaglutide [Ozempic] 0.5 mg SQ MO@2100 11/19/19 03/14/22 History Insulin Glargine,Hum.rec.anlog 40 unit SQ BID 08/07/20 03/14/22 History [Lantus Solostar Pen] Ezetimibe [Zetia] 10 mg PO DAILY #30 tab 02/02/21 03/14/22 Rx Pantoprazole [Protonix] 40 mg PO BID #60 tab 02/02/21 03/14/22 Rx Aspirin EC [Ecotrin Low Dose] 81 mg PO DAILY 03/06/21 03/14/22 History Empagliflozin [Jardiance] 25 mg PO DAILY 07/29/21 03/14/22 History Losartan Potassium [Cozaar] 100 mg PO DAILY 07/29/21 03/14/22 History Metoprolol Succinate (ER) [Toprol 100 mg PO DAILY 07/29/21 03/14/22 History XL] Spironolactone 25 mg PO DAILY 07/29/21 03/14/22 History hydrALAZINE HCL [Apresoline] 100 mg PO DAILY 07/29/21 03/14/22 History Montelukast Sodium [Singulair] 10 mg PO HS 08/26/21 03/14/22 History Nitroglycerin 0.4MG/Hr Patch 1 patch TRANSDERM DAILY PRN 08/26/21 03/14/22 History [Nitro-Dur 0.4MG/Hr Patch] HYDROmorphone [Dilaudid] 4 mg PO Q4H PRN 09/27/21 03/14/22 History ALPRAZolam [Xanax] 1 mg PO BID 03/14/22 03/14/22 History Albuterol Inhaler [Ventolin Hfa 1 - 2 puff INHALATION RT-QID PRN 03/14/22 03/14/22 History Inhaler] Apixaban [Eliquis] 2.5 mg PO BID 03/14/22 03/14/22 History Ondansetron [Zofran] 4 mg PO Q6H PRN 03/14/22 03/14/22 History Torsemide [Demadex] 20 mg PO DAILY 03/14/22 03/14/22 History Vericiguat [Verquvo] 2.5 mg PO DAILY 03/14/22 03/14/22 History cloNIDine HCL [Catapres] 0.1 mg PO HS 03/14/22 03/14/22 History metOLazone [Zaroxolyn] 10 mg PO DAILY 03/14/22 03/14/22 History Allergies Allergy/AdvReac Type Severity Reaction Status Date / Time cephalexin [From Keflex] Allergy Rash/Hives Verified 03/14/22 17:57 codeine Allergy Rash/Hives Verified 03/14/22 17:57 Iodine and Iodide Containing Allergy Rash/Hives Verified 03/14/22 17:57 Produc levofloxacin [From Levaquin] Allergy Rash/Hives Verified 03/14/22 17:57 penicillin V Allergy Rash/Hives Verified 03/14/22 17:57 Penicillins Allergy Anaphylaxis Verified 03/14/22 17:57 sulfamethoxazole Allergy Rash/Hives Verified 03/14/22 17:57 [From Bactrim] tramadol Allergy Rash/Hives Verified 03/14/22 17:57 trimethoprim [From Bactrim] Allergy Rash/Hives Verified 03/14/22 17:57 Surgical - Exam Osteopathic Statement: *. No significant issues noted on an osteopathic structural exam other than those noted in the History and Physical/Consult. Vital Signs Temp Pulse Resp BP Pulse Ox 98.4 F 125 H 24 221/138 97 03/14/22 15:26 03/14/22 15:26 03/14/22 15:26 03/14/22 15:26 03/14/22 15:26 2 ulcers on the right lower extremity and one on the left which are each about 3 x 4 cm and about 0.3 cm in depth. She has 1-2+ bilateral edema. Results - Labs 03/15/22 03:33 03/16/22 11:46 Abnormal Lab Results - Last 24 Hours (Table) 03/15/22 03/16/22 03/16/22 Range/Units 20:07 11:35 11:46 Sodium 136 L (137-145) mmol/L BUN 34 H (7-17) mg/dL Creatinine 2.54 H (0.52-1.04) mg/dL POC Glucose (mg/dL) 156 H 120 H (70-110) mg/dL Calcium 8.1 L (8.4-10.2) mg/dL Diabetes panel 03/16/22 Range/Units 11:46 Sodium 136 L (137-145) mmol/L Potassium 4.0 (3.5-5.1) mmol/L Chloride 102 (98-107) mmol/L Carbon Dioxide 29 (22-30) mmol/L BUN 34 H (7-17) mg/dL Creatinine 2.54 H (0.52-1.04) mg/dL Glucose 86 (74-99) mg/dL Calcium 8.1 L (8.4-10.2) mg/dL Calcium panel 03/16/22 Range/Units 11:46 Calcium 8.1 L (8.4-10.2) mg/dL Pituitary panel 03/16/22 Range/Units 11:46 Sodium 136 L (137-145) mmol/L Potassium 4.0 (3.5-5.1) mmol/L Chloride 102 (98-107) mmol/L Carbon Dioxide 29 (22-30) mmol/L BUN 34 H (7-17) mg/dL Creatinine 2.54 H (0.52-1.04) mg/dL Glucose 86 (74-99) mg/dL Calcium 8.1 L (8.4-10.2) mg/dL Adrenal panel 03/16/22 Range/Units 11:46 Sodium 136 L (137-145) mmol/L Potassium 4.0 (3.5-5.1) mmol/L Chloride 102 (98-107) mmol/L Carbon Dioxide 29 (22-30) mmol/L BUN 34 H (7-17) mg/dL Creatinine 2.54 H (0.52-1.04) mg/dL Glucose 86 (74-99) mg/dL Calcium 8.1 L (8.4-10.2) mg/dL Assessment and Plan (1) Chronic ulcer of left leg Current Visit: No Status: Acute Code(s): L97.929 - NON-PRS CHRONIC ULC UNSP PRT OF L LOW LEG W UNSP SEVERITY SNOMED Code(s): 14235240 (2) Chronic ulcer of right leg Current Visit: No Status: Acute Code(s): L97.919 - NON-PRS CHRONIC ULC UNSP PRT OF R LOW LEG W UNSP SEVERITY SNOMED Code(s): 01460984 (3) Ulcer of right lower extremity with fat layer exposed Current Visit: Yes Status: Acute Code(s): L97.912 - NON-PRS CHR ULC UNSP PRT OF R LOW LEG W FAT LAYER EXPOSED SNOMED Code(s): 71744680 (4) Ulcer of left lower extremity with fat layer exposed Current Visit: Yes Status: Acute Code(s): L97.922 - NON-PRS [facility] UNSP PRT OF L LOW LEG W FAT LAYER EXPOSED SNOMED Code(s): 91997016 Plan: I suspect that her original ulcers were related to an episode of swelling secondary to cellulitis. At this point we are left with fairly large full- thickness ulcerations with mixed amounts of healthy tissue ingrowth. The patient has had an issue with wound care of the local basis. She is seeking care in bad ax. Given the appearance of her wounds I feel that to continue her Santyl as a topical therapy, would be most appropriate. This would be covered with 1 damp sponge followed by dry sponge followed by a Kerlix wrap, followed by a double roll 4 inch Ryan wrap. Dressing should be changed daily. The patient verbalizes a desire to be followed in bad ax. If she desires more local therapy we will be happy to re-visit her therapeutic options. Thank you for the upgrade to assist in her care.
[2022-03-16 16:45] LABS: Glucose,Whole Blood 97 mg/dL (70-110)
[2022-03-16] MEDS: COLLAGENASE 250 UNIT/GM OINTMENT 30 GM TUBE TOPICAL SCH (16:57)
--- NOTE | 2022-03-16 18:33 | PN ---
PROGRESS NOTE Ms. Franlkin is a patient with COVID infection, also has CAD with a history of multivessel stenting. She was hypertensive yesterday. Today, she is somewhat hypotensive, but doing well, has no chest pain or shortness of breath. Her breathing is better. She explained to me that she is planning on seeing a new media traffic manager in the [place] area. Her blood pressure is well controlled. She is feeling better. No chest pain. Troponin profile does not suggest any myocardial injury. I am recommending that she can be discharged whenever it is okay with the admitting doctor and follow up with her media traffic manager. From a cardiac-perla, no intervention is necessary at this time. I will continue to see her as needed. MMODL / IJN: [id number] /
[2022-03-16] MEDS ORDERED: LOSARTAN 25 MG TAB PO SCH (21:00)
[2022-03-16] MEDS: ATORVASTATIN 80 MG TAB PO SCH (21:05)
[2022-03-16] MEDS: MONTELUKAST 10 MG TAB PO SCH (21:05)
--- NOTE | 2022-03-16 23:09 | PN ---
PROGRESS NOTE DATE OF SERVICE: 03/16/2022 CHIEF COMPLAINT: Shortness of breath. HISTORY OF PRESENT ILLNESS: This lady is doing fairly well. She is not febrile. She is not particularly short of breath. She has had no chest pain. Cardiac enzymes are up and she has been seen by Cardiology. BNP is 3090. When she came in, her blood pressure was excessive and then it dropped. She clearly is not taking her antihypertensives at home. PHYSICAL EXAMINATION: GENERAL: She is slightly edematous. CHEST: Demonstrates decreased breath sounds with rales at the bases. CARDIAC: Demonstrates an S4. ABDOMEN: Slightly protuberant. EXTREMITIES: Dressed with leg dressings below the knees. IMPRESSION: 1. Uncontrolled hypertension. 2. Acute on chronic . 3. Atherosclerotic cardiomyopathy. 4. Coronary artery disease. 5. Stasis dermatitis of the lower extremities with cellulitis and ulcers. 6. Coronavirus disease. 7. Influenza. 8. Depression. PLAN: Continue with current program and await any further recommendations from Cardiology. MMODL / IJN: [id number] /
--- NOTE | 2022-03-16 23:21 | US ---
EXAMINATION TYPE: US kidneys/renal and bladder DATE OF EXAM: 03/16/2022 COMPARISON: 05/31/21 CLINICAL HISTORY: acute kidney injury. LLOYD EXAM MEASUREMENTS: Right Kidney: 13.0 x 5.8 x 5.6 cm Left Kidney: 10.8 x 4.2 x 5.9 cm Right Kidney: Dilated renal pelvis measuring 1.5 cm Left Kidney: No hydronephrosis or masses seen Bladder: wnl Bilateral Jets seen: No Incidental findings: Mild to moderate ascites visualized in abdomen. Possible splenomegaly. There is no evidence for hydronephrosis at this point in time. No nephrolithiasis is seen. No angelica s are identified. The urinary bladder is anechoic. Bilateral ureteral jets are seen. IMPRESSION: Spleen is enlarged and measures 15.5 cm. There is slight fullness of the right renal pelvis. Moderate abdominal ascites is noted. No evidence of bladder mass. Kidneys appear not significantly di fferent than on old exam. No evidence of a renal mass.
[2022-03-16] MEDS: ACETAMINOPHEN TAB 500 MG TAB PO PRN (23:49)
[2022-03-17 00:21] LABS: Glucose,Whole Blood 76 mg/dL (70-110)
[2022-03-17 00:38] LABS: Glucose,Whole Blood 73 mg/dL (70-110)
[2022-03-17 01:02] LABS: Glucose,Whole Blood 81 mg/dL (70-110)
[2022-03-17 02:43] LABS: Glucose,Whole Blood 163 mg/dL (70-110)
[2022-03-17 06:11] LABS: Glucose,Whole Blood 112 mg/dL (70-110)
[2022-03-17] MEDS: OSELTAMIVIR 60 MG/10 ML ORAL SYRINGE PO SCH ×2 (08:12→08:20)
[2022-03-17] MEDS: EZETIMIBE 10 MG TAB PO SCH (08:12)
[2022-03-17] MEDS: METOPROLOL SUCCINATE (ER) 50 MG TAB.ER.24H PO SCH (08:13)
[2022-03-17] MEDS: APIXABAN 2.5 MG TABLET PO SCH ×2 (08:13→23:45)
[2022-03-17] MEDS: FERROUS SULFATE 325 MG TAB PO SCH (08:13)
[2022-03-17] MEDS: CLOPIDOGREL 75 MG TAB PO SCH (08:13)
[2022-03-17] MEDS: DAPAGLIFLOZIN PROPANEDIOL 10 MG TABLET PO SCH (08:14)
[2022-03-17] MEDS: ALPRAZolam 1 MG TAB PO SCH (08:14)
[2022-03-17] MEDS: COLLAGENASE 250 UNIT/GM OINTMENT 30 GM TUBE TOPICAL SCH (08:15)
[2022-03-17] MEDS: INSULIN DETEMIR (LEVEMIR) 100 UNIT/ML SYR SQ SCH (08:18)
[2022-03-17] MEDS: VERICIGUAT 2.5 MG PO SCH (08:20)
[2022-03-17] MEDS: SPIRONOLACTONE 25 MG TAB PO SCH (09:05)
[2022-03-17 10:08] LABS: Calcium 8.1 mg/dL (8.4-10.2); Magnesium 1.9 mg/dL (1.6-2.3)
[2022-03-17 11:01] LABS: Basophils % (A) 1 %; Eosinophils # (A) 0.1 k/uL (0-0.7); Eosinophils % (A) 1 %; HCT 40.2 % (34.0-46.0); HGB 12.3 gm/dL (11.4-16.0); Hypochromasia Marked; Lymphocytes # (A) 0.7 k/uL (1.0-4.8); Lymphocytes % (A) 13 %; MCH 25.9 pg (25.0-35.0); MCHC 30.5 g/dL (31.0-37.0); Mean Platelet Volume 9.5; Monocytes # (A) 0.5 k/uL (0-1.0); Monocytes % (A) 9 %; Neutrophils # (A) 3.9 k/uL (1.3-7.7); Neutrophils % (A) 73 %; Platelet Count 150 k/uL (150-450); RBC 4.73 m/uL (3.80-5.40); RDW 15.1 % (11.5-15.5); WBC 5.3 k/uL (3.8-10.6)
[2022-03-17 11:37] LABS: Glucose,Whole Blood 159 mg/dL (70-110)
--- NOTE | 2022-03-17 12:52 | P.NPCON ---
History of Present Illness - Reason for Consult acute renal failure - History of Present Illness Reason for consultation: Acute kidney injury. History of present illness: Patient is a 41-year-old female seen in renal consultation for acute kidney injury. Patient's baseline creatinine is near 1 from earlier this month and peaked at 2.54 this admission and is 2.46 today. Patient came to the hospital due to increasing weakness and shortness of breath. Patient also complains of lower extremity edema she states is now improved. Patient states she came to the hospital a few days prior due to edema but was subsequently discharged. Patient states she does take torsemide 20 mg orally once daily at home. She did receive IV Lasix initially and is down maintained on oral torsemide. Patient has history of diabetes as well as coronary artery disease with history of cardiac stenting. Prior echocardiogram showed an ejection fraction of 30-35%. An apical thrombus was also noted for which she is maintained on anticoagulation. She denies use of nonsteroidals. Denies gross hematuria or dysuria. Patient is edema is improved. She admits to good urine output. No vomiting or diarrhea. States she was diagnosed with diabetes about 3 years ago. No fever or chills now but she was febrile initially on admission with a temperature as high as 102.1F. Patient is positive for influenza A as well as COVID-19. She is receiving Tamiflu. Vital signs are stable. General: Awake. No acute distress. HEENT: Head exam is unremarkable. LUNGS: Breath sounds decreased. HEART: Rate and Rhythm are regular. ABDOMEN: Soft, no distention. EXTREMITITES: Lower extremities wrapped and tender to touch. Past Medical History Past Medical History: Atrial Fibrillation, Asthma, Coronary Artery Disease (CAD), Cancer, Chest Pain / Angina, Heart Failure, Diabetes Mellitus, GERD/Reflux, Hyperlipidemia, Hypertension, Myocardial Infarction ([place]), Pulmonary Embolus ([place]), Renal Disease, Respiratory Disorder Additional Past Medical History / Comment(s): CA Last Myocardial Infarction Date:: 04/2019 History of Any Multi-Drug Resistant Organisms: None Reported Past Surgical History: Section, Heart Catheterization With Stent, Joint Replacement, Tonsillectomy, Tubal Ligation Additional Past Surgical History / Comment(s): Partial R knee replacement, PCI/stents, surgery for PE/radiation. 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 Date of Last Stent Placement:: 05/08/19 Past Psychological History: Anxiety, Bipolar, Depression, No Psychological Hx Reported, Schizophrenia Smoking Status: Former smoker, Never smoker Past Alcohol Use History: None Reported Past Drug Use History: None Reported - Past Family History Father Family Medical History: Coronary Artery Disease (CAD), Hyperlipidemia, Hypertension Additional Family Medical History / Comment(s): pins in knee, heart stents x 4. Father is Mother Family Medical History: Coronary Artery Disease (CAD), Dementia, Diabetes Mellitus, Musculoskeletal Disorder, Renal Disease Additional Family Medical History / Comment(s): Parkinson's, stents in heart, neuropathy. Medications and Allergies Home Medications Medication Instructions Recorded Confirmed Type Ferrous Sulfate [Iron] 325 mg PO DAILY 07/11/18 03/14/22 History Atorvastatin [Lipitor] 80 mg PO HS #30 tab 12/06/18 03/14/22 Rx Clopidogrel [Plavix] 75 mg PO DAILY #30 tab 12/06/18 03/14/22 Rx Semaglutide [Ozempic] 0.5 mg SQ MO@2100 11/19/19 03/14/22 History Insulin Glargine,Hum.rec.anlog 40 unit SQ BID 08/07/20 03/14/22 History [Lantus Solostar Pen] Ezetimibe [Zetia] 10 mg PO DAILY #30 tab 02/02/21 03/14/22 Rx Pantoprazole [Protonix] 40 mg PO BID #60 tab 02/02/21 03/14/22 Rx Aspirin EC [Ecotrin Low Dose] 81 mg PO DAILY 03/06/21 03/14/22 History Empagliflozin [Jardiance] 25 mg PO DAILY 07/29/21 03/14/22 History Losartan Potassium [Cozaar] 100 mg PO DAILY 07/29/21 03/14/22 History Metoprolol Succinate (ER) [Toprol 100 mg PO DAILY 07/29/21 03/14/22 History XL] Spironolactone 25 mg PO DAILY 07/29/21 03/14/22 History hydrALAZINE HCL [Apresoline] 100 mg PO DAILY 07/29/21 03/14/22 History Montelukast Sodium [Singulair] 10 mg PO HS 08/26/21 03/14/22 History Nitroglycerin 0.4MG/Hr Patch 1 patch TRANSDERM DAILY PRN 08/26/21 03/14/22 History [Nitro-Dur 0.4MG/Hr Patch] HYDROmorphone [Dilaudid] 4 mg PO Q4H PRN 09/27/21 03/14/22 History ALPRAZolam [Xanax] 1 mg PO BID 03/14/22 03/14/22 History Albuterol Inhaler [Ventolin Hfa 1 - 2 puff INHALATION RT-QID PRN 03/14/22 03/14/22 History Inhaler] Apixaban [Eliquis] 2.5 mg PO BID 03/14/22 03/14/22 History Ondansetron [Zofran] 4 mg PO Q6H PRN 03/14/22 03/14/22 History Torsemide [Demadex] 20 mg PO DAILY 03/14/22 03/14/22 History Vericiguat [Verquvo] 2.5 mg PO DAILY 03/14/22 03/14/22 History cloNIDine HCL [Catapres] 0.1 mg PO HS 03/14/22 03/14/22 History metOLazone [Zaroxolyn] 10 mg PO DAILY 03/14/22 03/14/22 History Allergies Allergy/AdvReac Type Severity Reaction Status Date / Time cephalexin [From Keflex] Allergy Rash/Hives Verified 03/14/22 17:57 codeine Allergy Rash/Hives Verified 03/14/22 17:57 Iodine and Iodide Containing Allergy Rash/Hives Verified 03/14/22 17:57 Produc levofloxacin [From Levaquin] Allergy Rash/Hives Verified 03/14/22 17:57 penicillin V Allergy Rash/Hives Verified 03/14/22 17:57 Penicillins Allergy Anaphylaxis Verified 03/14/22 17:57 sulfamethoxazole Allergy Rash/Hives Verified 03/14/22 17:57 [From Bactrim] tramadol Allergy Rash/Hives Verified 03/14/22 17:57 trimethoprim [From Bactrim] Allergy Rash/Hives Verified 03/14/22 17:57 Physical Exam Vitals: Vital Signs Temp Pulse Resp BP Pulse Ox 03/17/22 12:05 98.1 F 71 16 117/70 97 03/17/22 07:50 98.1 F 74 17 114/70 95 03/17/22 04:00 98.7 F 85 17 96/48 92 L 03/17/22 00:14 68 18 03/17/22 00:00 102.5 F H 68 18 135/83 91 L 03/16/22 20:00 98.4 F 76 16 128/84 98 03/16/22 15:57 98.3 F 78 20 117/80 93 L 03/16/22 14:00 16 Intake and Output 03/16/22 03/17/22 03/17/22 22:59 06:59 14:59 Output Total 2200 Balance -2200 Output: Urine 2200 Straight 600 Other: Voiding Method External Catheter External Catheter Toilet # Voids 2 1 # Bowel Movements 1 Weight 71 kg Results - Lab Results Most recent lab results Calcium 8.1 mg/dL (8.4-10.2) L 03/17/22 09:11 Magnesium 1.9 mg/dL (1.6-2.3) 03/17/22 09:11 03/17/22 09:11 03/17/22 09:11 Assessment and Plan Plan: Assessment: 1. Acute kidney injury secondary to hemodynamic ATN, infection and cardiorenal syndrome. Creatinine was 1.05 on admission and peaked at 2.5 for this admission - 2.46 today. No hydronephrosis noted on kidney ultrasound. 2. Acute COVID-19 infection. 3. Influenza A infection. On Tamiflu. 4. Acute on chronic systolic CHF with ejection fraction of 30-35%. 5. Volume overload. Improved with diuresis. Status post IV diuresis as well as metolazone. 6. Diabetes mellitus. Plan: Maintain oral torsemide. Low-salt diet and 1500 mL fluid restriction. Check UA and quantify proteinuria. Avoid nephrotoxins. Continue to monitor renal function and urine output. Will need to hold Farxiga if GFR continues to decline. Follow-up echocardiogram. Thank you for the consultation. I will continue to follow the patient with you during her hospital stay.
[2022-03-17 16:22] LABS: Glucose,Whole Blood 184 mg/dL (70-110)
[2022-03-17 20:30] LABS: Glucose,Whole Blood 110 mg/dL (70-110)
--- NOTE | 2022-03-17 21:15 | CT ---
EXAMINATION TYPE: CT brain wo con DATE OF EXAM: 03/17/2022 COMPARISON: None HISTORY: Fall and hit head. CT DLP: 1271.4 mGycm Automated exposure control for dose reduction was used. Images of the brain obtained with no contrast. Ventricles of normal size. There is no mass effect or midline shift. No sign of intracranial hemorrha ge. Calvarium is intact. IMPRESSION: Negative unenhanced head CT scan
[2022-03-17] MEDS: ATORVASTATIN 80 MG TAB PO SCH (23:45)
[2022-03-17] MEDS: MONTELUKAST 10 MG TAB PO SCH (23:45)
[2022-03-18] MEDS: INSULIN DETEMIR (LEVEMIR) 100 UNIT/ML SYR SQ SCH ×2 (00:07→11:37)
[2022-03-18] MEDS: ALPRAZolam 1 MG TAB PO SCH ×2 (01:07→11:52)
[2022-03-18] MEDS: HYDROmorphone 2 MG TAB PO PRN (01:08)
--- NOTE | 2022-03-18 06:25 | P.PN ---
Subjective Progress Note Date: 03/17/22 This is a 41-year-old female patient of Dr. Fish who was admitted with shortness of breath and generalized weakness and admitted for CHF exacerbation with cardiology following. Patient was diuresed and is continued on oral Demadex and Aldactone has been added. Patient with multiple comorbidities also with chronic pain and is continued on her home medications. Patient is extremely lethargic although arousable on exam and falls asleep frequently during conversation. Patient having some acute kidney injury with creatinine of 2.3 and will consult nephrology. Appreciate input and recommendations. Patient also being followed by wound care for a chronic right schuster wound and Dr. Sims evaluated the patient recommending continuing with wound care and not requiring antibiotics at this time. Patient did have a low-grade temp overnight as well. Will obtain repeat labs continue to monitor closely. Patient is also being treated with Tamiflu for influenza and also found to be COVID-19 positive. Review of systems: Constitutional: reports of fatigue, no reports of fever, or chills Cardiovascular: No reports of chest pain or palpitations Respiratory: No reports of worsening shortness of breath GI: no reports of nausea, no reports of of vomiting, or diarrhea : No reports of dysuria or retention Neurovascular: reports of generalized weakness All medications have been reviewed Active Medications Acetaminophen (Acetaminophen Tab 500 Mg Tab) 500 mg PO Q6HR PRN PRN Reason: Fever and/ or Pain Last Admin: 03/16/22 23:49 Dose: 500 mg Albuterol Sulfate (Albuterol Hfa Inhaler) 2 puff INHALATION RT-QID PRN PRN Reason: Shortness Of Breath Alprazolam (Alprazolam 1 Mg Tab) 1 mg PO BID [facility] Last Admin: 03/18/22 01:07 Dose: Not Given Apixaban (Apixaban 2.5 Mg Tablet) 2.5 mg PO BID [facility]; Protocol Last Admin: 03/17/22 23:45 Dose: 2.5 mg Atorvastatin Calcium (Atorvastatin 80 Mg Tab) 80 mg PO HS [facility] Last Admin: 03/17/22 23:45 Dose: 80 mg Clopidogrel Bisulfate (Clopidogrel 75 Mg Tab) 75 mg PO DAILY [facility] Last Admin: 03/17/22 08:13 Dose: 75 mg Collagenase (Collagenase 250 Unit/Gm Ointment 30 Gm Tube) 1 applic TOPICAL DAILY [facility]; Protocol Last Admin: 03/17/22 08:15 Dose: 1 applic Dapagliflozin (Dapagliflozin Propanediol 10 Mg Tablet) 10 mg PO DAILY [facility] Last Admin: 03/17/22 08:14 Dose: 10 mg Ezetimibe (Ezetimibe 10 Mg Tab) 10 mg PO DAILY [facility] Last Admin: 03/17/22 08:12 Dose: 10 mg Ferrous Sulfate (Ferrous Sulfate 325 Mg Tab) 325 mg PO DAILY [facility] Last Admin: 03/17/22 08:13 Dose: 325 mg Hydromorphone HCl (Hydromorphone 2 Mg Tab) 4 mg PO Q4H PRN PRN Reason: Pain Last Admin: 03/18/22 01:08 Dose: 4 mg Insulin Detemir (Insulin Detemir (Levemir) 100 Unit/Ml Syr) 40 unit SQ BID [facility] Last Admin: 03/18/22 00:07 Dose: 40 unit Metoprolol Succinate (Metoprolol Succinate (Er) 50 Mg Tab.Er.24h) 50 mg PO SILVA Y [facility] Last Admin: 03/17/22 08:13 Dose: 50 mg Montelukast Sodium (Montelukast 10 Mg Tab) 10 mg PO HS [facility] Last Admin: 03/17/22 23:45 Dose: 10 mg Naloxone HCl (Naloxone 0.4 Mg/Ml 1 Ml Vial) 0.2 mg IV Q2M PRN PRN Reason: Opioid Reversal Nitroglycerin (Nitroglycerin 0.4mg/Hr Patch) 1 patch TRANSDERM DAILY PRN PRN Reason: Chest Pain Non-Formulary Medication (Vericiguat [Verquvo]) 2.5 mg PO DAILY [facility] Last Admin: 03/17/22 08:20 Dose: Not Given Non-Formulary Medication (Semaglutide [Ozempic]) 0.5 mg SQ MO@2100 [facility] Ondansetron HCl (Ondansetron 4 Mg Tab) 4 mg PO Q6H PRN PRN Reason: Nausea Oseltamivir Phosphate (Oseltamivir 60 Mg/10 Ml Oral Syringe) 30 mg PO DAILY [facility]; Protocol Stop: 03/19/22 09:01 Last Admin: 03/17/22 08:20 Dose: 30 mg Spironolactone (Spironolactone 25 Mg Tab) 25 mg PO DAILY [facility] Last Admin: 03/17/22 09:05 Dose: Not Given Torsemide (Torsemide 20 Mg Tab) 20 mg PO DAILY [facility] Last Admin: 03/16/22 08:52 Dose: 20 mg PHYSICAL EXAMINATION: GENERAL: The patient is alert and oriented x3 lethargic but arousable, Well developed, well nourished. HEENT: Pupils are round and equally reacting to light. EOMI. no scleral icterus. No conjunctival pallor. Normocephalic, atraumatic. No pharyngeal erythema. No thyromegaly. CARDIOVASCULAR: S1 and S2 muffled PULMONARY: diminished breath sounds bilaterally with no wheezing, some scattered rhonchi noted. ABDOMEN: soft. Nontender on exam. obese. non-distended, normoactive bowel sounds. No palpable organomegaly. MUSCULOSKELETAL: No joint swelling or deformity. EXTREMITIES: No cyanosis, clubbing, or pedal edema. Right schuster wound chronic NEUROLOGICAL: Gross neurological examination did not reveal any focal deficits. Diffuse weakness SKIN: No rashes. Assessment: Uncontrolled hypertension, hypertensive urgency on admission Acute on chronic congestive heart failure, acute exacerbation Acute kidney injury, likely cardiorenal Atherosclerotic cardiomyopathy Coronary artery disease Stasis dermatitis of the lower extremities with cellulitis and ulcers Coronavirus disease Influenza History of depression GI prophylaxis DVT prophylaxis Full code Plan: Recommend to continue with current medications and management with wound care and cardiology was following Maintained on Demadex and diuresed well and has been added on Aldactone although blood pressure low and Aldactone was held today Patient to continue with local wound care of the right schuster with dressing changes and wound care following. Patient with worsening kidney functions with a creatinine over 2.3 we'll consult nephrology and appreciate input recommendations Patient is maintained on Tamiflu and will continue renal dosing Follow-up repeat labs in the a.m. Case management following and plan is for home with home care and lives with her fianc Recommend monitoring blood sugars closely and will add sliding scale if needed, continue current regimen for now Due to Multiple complex medical issues, prognosis is guarded The impression and plan of care has been dictated by Nichole Del Angel, nurse practitioner as directed. Dr. Adriel MD I have performed a history and examination and MDM of this patient, discussed the same with the dictator, and agree with the dictator's assessment and plan as written ,documented as a scribe. Based on total visit time, I have performed more than 50% of the visit. Any additional findings or plans will be noted. Objective - Vital Signs Vital signs: Vital Signs Temp 98.1 F 03/17/22 07:50 Pulse 74 03/17/22 07:50 Resp 17 03/17/22 07:50 BP 114/70 03/17/22 07:50 Pulse Ox 95 03/17/22 07:50 FiO2 Intake & Output 03/16/22 03/17/22 03/17/22 18:59 06:59 18:59 Intake Total 118 Output Total 350 2200 Balance -232 -2200 Weight 71 kg Intake: Oral 118 Output: Urine 350 2200 Straight 600 Other: Voiding Method External Catheter External Catheter Toilet # Voids 2 1 # Bowel Movements 1 - Labs CBC & Chem 7: 03/17/22 09:11 03/17/22 09:11 Labs: Abnormal Lab Results - Last 24 Hours (Table) 03/16/22 03/16/22 03/17/22 Range/Units 11:35 11:46 02:42 MCHC (31.0-37.0) g/dL Lymphocytes # (1.0-4.8) k/uL Sodium 136 L (137-145) mmol/L BUN 34 H (7-17) mg/dL Creatinine 2.54 H (0.52-1.04) mg/dL POC Glucose (mg/dL) 120 H 163 H (70-110) mg/dL Calcium 8.1 L (8.4-10.2) mg/dL 03/17/22 03/17/22 03/17/22 Range/Units 06:09 09:11 09:11 MCHC 30.5 L (31.0-37.0) g/dL Lymphocytes # 0.7 L (1.0-4.8) k/uL Sodium 134 L (137-145) mmol/L BUN 41 H (7-17) mg/dL Creatinine 2.46 H (0.52-1.04) mg/dL POC Glucose (mg/dL) 112 H (70-110) mg/dL Calcium 8.1 L (8.4-10.2) mg/dL
[2022-03-18 07:16] LABS: Glucose,Whole Blood 58 mg/dL (70-110)
[2022-03-18 07:35] LABS: Glucose,Whole Blood 74 mg/dL (70-110)
[2022-03-18 08:11] VITALS: RESP 16; TEMP 97.9
[2022-03-18 11:00] LABS: African American GFR (CKD) 29.4 (60.0-200.0); Anion Gap 11.2 mmol/L (10.00-18.00); BUN/Creat Ratio 15.17 Ratio (12.00-20.00); Blood Urea Nitrogen 34.9 mg/dL (9.0-27.0); Calcium 8.9 mg/dL (8.7-10.3); Carbon Dioxide 27.8 mmol/L (20.0-27.5); Magnesium 2.3 mg/dL (1.5-2.4); Non-African American GFR(CKD) 25.4 (60.0-200.0); Potassium 4.2 mmol/L (3.5-5.5)
[2022-03-18] MEDS: VERICIGUAT 2.5 MG PO SCH (11:33)
[2022-03-18 11:36] LABS: Glucose,Whole Blood 99 mg/dL (70-110)
[2022-03-18] MEDS: EZETIMIBE 10 MG TAB PO SCH (11:51)
[2022-03-18] MEDS: CLOPIDOGREL 75 MG TAB PO SCH (11:51)
[2022-03-18] MEDS: SPIRONOLACTONE 25 MG TAB PO SCH (11:51)
[2022-03-18] MEDS: METOPROLOL SUCCINATE (ER) 50 MG TAB.ER.24H PO SCH (11:51)
[2022-03-18] MEDS: FERROUS SULFATE 325 MG TAB PO SCH (11:51)
[2022-03-18] MEDS: OSELTAMIVIR 60 MG/10 ML ORAL SYRINGE PO SCH (11:52)
[2022-03-18] MEDS: APIXABAN 2.5 MG TABLET PO SCH (11:52)
[2022-03-18] MEDS: TORSEMIDE 20 MG TAB PO SCH (12:57)
[2022-03-18] MEDS: DAPAGLIFLOZIN PROPANEDIOL 10 MG TABLET PO SCH (12:57)
--- NOTE | 2022-03-18 14:47 | P.PN ---
Subjective Patient is seen in follow-up for acute kidney injury. Renal function slightly better. Oral intake is good. Has been voiding. On room air. No active complaints. Vital signs are stable. General: No acute distress. HEENT: Head exam is unremarkable. LUNGS: Breath sounds decreased. HEART: Rate and Rhythm are regular. ABDOMEN: Soft, no distention. EXTREMITITES: Trace edema. No drainage. Objective - Vital Signs Vital signs: Vital Signs Temp 97.9 F 03/18/22 08:00 Pulse 78 03/18/22 08:00 Resp 16 03/18/22 08:00 BP 154/83 03/18/22 08:00 Pulse Ox 92 L 03/18/22 08:00 FiO2 Intake & Output 03/17/22 03/18/22 03/18/22 18:59 06:59 18:59 Intake Total 1000 118 Balance 1000 118 Weight 71 kg Intake: Oral 1000 118 Other: Voiding Method Toilet Toilet # Voids 1 # Bowel Movements 1 - Labs CBC & Chem 7: 03/17/22 09:11 03/18/22 06:27 Labs: Abnormal Lab Results - Last 24 Hours (Table) 03/17/22 03/18/22 03/18/22 Range/Units 16:20 06:27 07:15 Carbon Dioxide 27.8 H (20.0-27.5) mmol/L BUN 34.9 H (9.0-27.0) mg/dL Creatinine 2.3 H (0.6-1.5) mg/dL Est GFR (CKD-EPI)AfAm 29.4 L (60.0-200.0) Est GFR (CKD-EPI)NonAf 25.4 L (60.0-200.0) Glucose 63 L (70-110) mg/dL POC Glucose (mg/dL) 184 H 58 L (70-110) mg/dL Assessment and Plan Plan: Assessment: 1. Acute kidney injury secondary to hemodynamic ATN, infection and cardiorenal syndrome. Creatinine was 1.05 on admission and peaked at 2.5 this admission - 2.3 today. No hydronephrosis noted on kidney ultrasound. 2. Acute COVID-19 infection. 3. Influenza A infection. On Tamiflu. 4. Acute on chronic systolic CHF with ejection fraction of 30-35%. 5. Volume overload. Improved with diuresis. Status post IV diuresis as well as metolazone. 6. Diabetes mellitus. Plan: Maintain oral torsemide. Low-salt diet and 1500 mL fluid restriction. Follow-up UA and quantify proteinuria. Avoid nephrotoxins. Continue to monitor renal function and urine output. Will need to hold Farxiga if GFR worsens. Follow-up echocardiogram. Advised patient to follow up outpatient 1 week post discharge.
[2022-03-18] MEDS: COLLAGENASE 250 UNIT/GM OINTMENT 30 GM TUBE TOPICAL SCH (15:17)
[2022-03-18 15:26] VITALS: BP 148/73; PULSE 81
[2022-03-18 16:26] LABS: Creatinine,Urine Random 16.6 mg/dL; Protein/Creatinine Ratio,Urine 1.024
[2022-03-18 17:01] LABS: Appearance,Urine Clear (Clear); Bilirubin,Urine Negative (Negative); Blood,Urine Negative (Negative); Color,Urine Colorless; Glucose,Urine (UA) 2+ (Negative); Ketones,Urine Negative (Negative); Leukocyte Esterase,Urine Negative (Negative); Nitrite,Urine Negative (Negative); PH, Urine 6.5 (5.0-8.0); Protein,Urine Negative (Negative); Specific Gravity,Urine 1.006 (1.001-1.035); Urobilinogen,Urine <2.0 mg/dL (<2.0)
--- NOTE | 2022-03-18 17:07 | CA ---
Transthoracic Echo Report Name: Petty Franklin Age: 41 Gender: F : 1980 Exam Date: 03/18/2022 12:02 Exam Location: [facility] Ht (in): 62 Wt (lb): 156 Ordering Physician: Adan Funes MD Attending/Referring Phys: Supervisor Matrix Yee Davis RDCS Procedure CPT: Indications: chf exacerbation Cardiac Hx: Technical Quality: Technically difficult study Contrast 1: Lumason Total Dose (mL): 4 Contrast 2: Total Dose (mL): MEASUREMENTS (Male / Female) Normal Values 2D ECHO LV Diastolic Diameter PLAX 4.0 cm 4.2 - 5.9 / 3.9 - 5.3 cm LV Systolic Diameter PLAX 3.3 cm IVS Diastolic Thickness 1.8 cm 0.6 - 1.0 / 0.6 - 0.9 cm LVPW Diastolic Thickness 1.5 cm 0.6 - 1.0 / 0.6 - 0.9 cm LV Relative Wall Thickness 0.8 FINDINGS Left Ventricle Limited study. Severely increased left ventricular wall thickness. Reduced global left ventricular systolic function. Left ventricular ejection fraction is estimated at 35-40 %. Left ventricular apical thrombus. Anteroapical and anteroseptal hypokinesis to akinesis Right Ventricle Right Atrium Left Atrium Mitral Valve Aortic Valve Tricuspid Valve Pulmonic Valve Pericardium Small pericardial effusion. Aorta CONCLUSIONS Limited echo. Moderately to severely impaired systolic function with segmental wall motion abnormality Left ventricular apical thrombus Small pericardial effusion Previewed by: Dr. Arpita Everett MD (Electronically Signed) Final Date: 18 March 2022 17:06
[2022-03-18 23:52] LABS: Microalbumin Creatinine Ratio <30 mg/g Creat (0-30); Urine Creatinine 18.2 mg/dL (28.0-217.0)
[2022-03-21] MEDS ORDERED: NON FORMULARY DRUG (Semaglutide [Ozempic] 0.25 MG/0.2 ML Pen.Injctr) SQ SCH (21:00)
== END 2022-03-18 16:40 | disposition home health service (06) | DRG 291 ==
LOC: EC 15:25 → 3SCARD 18:43 → 4SSUR 03-17 13:54
PROVIDERS: ADMIT Family Medicine; ATTEND Family Medicine
DX: I13.0 Hypertensive heart and chronic kidney disease with heart failure and stage 1 through stage 4 chronic kidney disease, or unspecified chronic kidney disease (principal); I50.23 Acute on chronic systolic (congestive) heart failure; U07.1 COVID-19; N17.0 Acute kidney failure with tubular necrosis; L97.922 Non-pressure chronic ulcer of unspecified part of left lower leg with fat layer exposed; L97.912 Non-pressure chronic ulcer of unspecified part of right lower leg with fat layer exposed; L03.116 Cellulitis of left lower limb; L03.115 Cellulitis of right lower limb; J44.0 Chronic obstructive pulmonary disease with (acute) lower respiratory infection; J10.1 Influenza due to other identified influenza virus with other respiratory manifestations; I87.2 Venous insufficiency (chronic) (peripheral); I51.3 Intracardiac thrombosis, not elsewhere classified; I48.91 Unspecified atrial fibrillation; I25.10 Atherosclerotic heart disease of native coronary artery without angina pectoris; I16.0 Hypertensive urgency; E11.22 Type 2 diabetes mellitus with diabetic chronic kidney disease; N18.9 Chronic kidney disease, unspecified; F31.9 Bipolar disorder, unspecified; G89.29 Other chronic pain; F41.9 Anxiety disorder, unspecified; K21.9 Gastro-esophageal reflux disease without esophagitis; I95.9 Hypotension, unspecified; E78.00 Pure hypercholesterolemia, unspecified; R77.8 Other specified abnormalities of plasma proteins; F20.9 Schizophrenia, unspecified; Z96.651 Presence of right artificial knee joint; Z95.5 Presence of coronary angioplasty implant and graft; Z87.891 Personal history of nicotine dependence; Z86.711 Personal history of pulmonary embolism; Z79.899 Other long term (current) drug therapy; Z79.84 Long term (current) use of oral hypoglycemic drugs; Z79.82 Long term (current) use of aspirin; Z79.02 Long term (current) use of antithrombotics/antiplatelets; Z79.01 Long term (current) use of anticoagulants; Z79.4 Long term (current) use of insulin; I25.2 Old myocardial infarction; Z86.14 Personal history of Methicillin resistant Staphylococcus aureus infection; Z85.6 Personal history of leukemia; Z88.8 Allergy status to other drugs, medicaments and biological substances; Z88.1 Allergy status to other antibiotic agents; Z88.2 Allergy status to sulfonamides; Z91.041 Radiographic dye allergy status; Z88.5 Allergy status to narcotic agent
CPT/HCPCS: 36415; 70450; 71046; 76770; 80048; 80053; 81003; 82043; 82570; 83605; 83735; 83880; 84156; 84484; 85025; 85610; 85730; 87636; 93005; 93308; 96374; 99285

== ENCOUNTER → 2022-05-24 | Outpatient (CLI) | payer MEDICARE, OTHER ==
[2022-05-24 18:55] LABS: African American GFR (CKD) 64.6 (60.0-200.0); Anion Gap 9.5 mmol/L (10.00-18.00); BUN/Creat Ratio 19.08 Ratio (12.00-20.00); Blood Urea Nitrogen 22.9 mg/dL (9.0-27.0); Calcium 9.8 mg/dL (8.7-10.3); Carbon Dioxide 31.6 mmol/L (20.0-27.5); Non-African American GFR(CKD) 55.7 (60.0-200.0); Potassium 4.9 mmol/L (3.5-5.5)
== END | disposition home or self-care (01) ==
LOC: LABWHC1 12:09
PROVIDERS: ATTEND Nurse Practitioner
DX: I50.9 Heart failure, unspecified (principal)
CPT/HCPCS: 36415; 80048

== ENCOUNTER 2022-06-08 12:14 | Inpatient (IN) | payer MEDICARE, OTHER ==
[2022-06-08] MEDS ORDERED: VANCOMYCIN IV PER PHARMACY 1 EACH MISC MISCELLANE PRN (13:34)
[2022-06-08] MEDS ORDERED: VANCOMYCIN 1,500 MG in SODIUM CHLORIDE 0.9% 500 ML 500 ML IVPB STA (13:41)
[2022-06-08 14:05] LABS: Anisocytosis Slight; Basophils % (A) 0 %; Eosinophils # (A) 0.2 k/uL (0-0.7); Eosinophils % (A) 3 %; HCT 41.2 % (34.0-46.0); HGB 12.7 gm/dL (11.4-16.0); Lymphocytes # (A) 0.8 k/uL (1.0-4.8); Lymphocytes % (A) 17 %; MCH 25.6 pg (25.0-35.0); MCHC 30.9 g/dL (31.0-37.0); MCV 82.9 fL (80.0-100.0); Mean Platelet Volume 7.9; Monocytes # (A) 0.2 k/uL (0-1.0); Monocytes % (A) 5 %; Neutrophils # (A) 3.6 k/uL (1.3-7.7); Neutrophils % (A) 73 %; Platelet Count 217 k/uL (150-450); RBC 4.97 m/uL (3.80-5.40); RDW 16.1 % (11.5-15.5); WBC 4.9 k/uL (3.8-10.6)
--- NOTE | 2022-06-08 14:05 | ED ---
General Adult HPI - General Chief complaint: Skin/Abscess/Foreign Body Stated complaint: diabetic infection both legs Time Seen by Provider: 06/08/22 13:30 Source: patient, RN notes reviewed, old records reviewed Mode of arrival: wheelchair Limitations: no limitations - History of Present Illness Initial comments: 41-year-old female presenting for evaluation of bilateral lower extremity swelling and purulent drainage. Patient has been on doxycycline for the past 10 days. She states that her legs continue to drain. She has multiple chronic medical conditions including ischemic cardiomyopathy, kidney disease, hypertension and diabetes. She denies fevers. - Related Data Home Medications Medication Instructions Recorded Confirmed Ferrous Sulfate [Iron] 325 mg PO DAILY 07/11/18 06/08/22 Semaglutide [Ozempic] 0.5 mg SQ MO@2100 11/19/19 06/08/22 Insulin Glargine,Hum.rec.anlog 40 unit SQ HS 08/07/20 06/08/22 [Lantus Solostar Pen] Empagliflozin [Jardiance] 25 mg PO DAILY 07/29/21 06/08/22 Metoprolol Succinate (ER) [Toprol 100 mg PO DAILY 07/29/21 06/08/22 XL] Spironolactone 25 mg PO DAILY 07/29/21 06/08/22 hydrALAZINE HCL [Apresoline] 100 mg PO BID 07/29/21 06/08/22 Montelukast Sodium [Singulair] 10 mg PO HS 08/26/21 06/08/22 Nitroglycerin 0.4MG/Hr Patch 1 patch TRANSDERM DAILY PRN 08/26/21 06/08/22 [Nitro-Dur 0.4MG/Hr Patch] HYDROmorphone [Dilaudid] 4 mg PO Q6H PRN 09/27/21 06/08/22 ALPRAZolam [Xanax] 1 mg PO BID PRN 03/14/22 06/08/22 Albuterol Inhaler [Ventolin Hfa 1 - 2 puff INHALATION RT-QID PRN 03/14/22 06/08/22 Inhaler] Apixaban [Eliquis] 2.5 mg PO BID 03/14/22 06/08/22 Ondansetron [Zofran] 4 mg PO Q6H PRN 03/14/22 06/08/22 Torsemide [Demadex] 20 mg PO DAILY 03/14/22 06/08/22 cloNIDine HCL [Catapres] 0.1 mg PO HS 03/14/22 06/08/22 Collagenase [Santyl Ointment] 1 applic TOPICAL DAILY 06/08/22 06/08/22 Potassium Chloride ER [K-Dur 20] 20 meq PO DAILY 06/08/22 06/08/22 metOLazone [Zaroxolyn] 2.5 mg PO DAILY PRN 06/08/22 06/08/22 Previous Rx's Medication Instructions Recorded Atorvastatin [Lipitor] 80 mg PO HS #30 tab 12/06/18 Clopidogrel [Plavix] 75 mg PO DAILY #30 tab 12/06/18 Ezetimibe [Zetia] 10 mg PO DAILY #30 tab 02/02/21 Pantoprazole [Protonix] 40 mg PO BID #60 tab 02/02/21 Allergies Allergy/AdvReac Type Severity Reaction Status Date / Time cephalexin [From Keflex] Allergy Rash/Hives Verified 06/08/22 14:16 codeine Allergy Rash/Hives Verified 06/08/22 14:16 Iodine and Iodide Containing Allergy Rash/Hives Verified 06/08/22 14:16 Produc levofloxacin [From Levaquin] Allergy Rash/Hives Verified 06/08/22 14:16 penicillin V Allergy Rash/Hives Verified 06/08/22 14:16 Penicillins Allergy Anaphylaxis Verified 06/08/22 14:16 sulfamethoxazole Allergy Rash/Hives Verified 06/08/22 14:16 [From Bactrim] tramadol Allergy Rash/Hives Verified 06/08/22 14:16 trimethoprim [From Bactrim] Allergy Rash/Hives Verified 06/08/22 14:16 Review of Systems ROS Statement: Those systems with pertinent positive or pertinent negative responses have been documented in the HPI. ROS Other: All systems not noted in ROS Statement are negative. Past Medical History Past Medical History: Atrial Fibrillation, Asthma, Coronary Artery Disease (CAD), Cancer, Chest Pain / Angina, Heart Failure, Diabetes Mellitus, GERD/Reflux, Hyperlipidemia, Hypertension, Myocardial Infarction (DE), Pulmonary Embolus (PE), Renal Disease, Respiratory Disorder Additional Past Medical History / Comment(s): CA- lymphoma Last Myocardial Infarction Date:: 04/2019 History of Any Multi-Drug Resistant Organisms: None Reported Past Surgical History: Section, Heart Catheterization With Stent, Joint Replacement, Tonsillectomy, Tubal Ligation Additional Past Surgical History / Comment(s): Partial R knee replacement, PCI/stents, surgery for PE/radiation. 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 Date of Last Stent Placement:: 05/08/19 Past Psychological History: Anxiety, Bipolar, Depression, No Psychological Hx Reported, Schizophrenia Smoking Status: Former smoker Past Alcohol Use History: None Reported Past Drug Use History: None Reported - Past Family History Father Family Medical History: Coronary Artery Disease (CAD), Hyperlipidemia, Hypertension Additional Family Medical History / Comment(s): pins in knee, heart stents x 4. Father is Mother Family Medical History: Coronary Artery Disease (CAD), Dementia, Diabetes Mellitus, Musculoskeletal Disorder, Renal Disease Additional Family Medical History / Comment(s): Parkinson's, stents in heart, neuropathy. General Exam Limitations: no limitations General appearance: alert Head exam: Present: atraumatic, normocephalic Eye exam: Present: normal appearance, PERRL ENT exam: Present: normal exam Respiratory exam: Present: decreased breath sounds. Absent: respiratory distress Cardiovascular Exam: Present: regular rate, normal rhythm GI/Abdominal exam: Present: soft, distended. Absent: tenderness, guarding Extremities exam: Present: pedal edema, other (Purulent drainage, cellulitis, erythema) Neurological exam: Present: alert, oriented X3, CN II-XII intact. Absent: motor sensory deficit Psychiatric exam: Present: normal affect, normal mood Course Vital Signs 06/08/22 06/08/22 12:19 14:06 Temperature 97.7 F Pulse Rate 107 H 109 H Respiratory 22 18 Rate Blood Pressure 205/145 179/125 O2 Sat by Pulse 98 96 Oximetry EKG Findings - EKG Comments: EKG Findings:: EKG: Sinus tachycardia rate of 103, left atrial enlargement, NM interval 150, QRS duration 92, QTC 426, no ST segment changes. - EKG Results: EKG: interpreted by DEBBIE Medical Decision Making - Medical Decision Making Was pt. sent in by a medical professional or institution (, PA, PHARMACY TECHNOLOGIST, urgent care, hospital, or intermediate...) When possible be specific @ -[No] Did you speak to anyone other than the patient for history (EMS, parent, family, police, friend...)? What history was obtained from this source @ -Patient's Did you review nursing and triage notes (agree or disagree)? Why? @ -[I reviewed and agree with nursing and triage notes] Were old charts reviewed (outside hosp., previous admission, EMS record, old EKG, old radiological studies, urgent care reports/EKG's, intermediate records)? Report findings @ -Previous visits including infectious disease notes, laboratory testing. Differential Diagnosis (chest pain, altered mental status, abdominal pain women, abdominal pain men, vaginal bleeding, weakness, fever, dyspnea, syncope, headache, dizziness, GI bleed, back pain, seizure, CVA, palpatations, mental health, musculoskeletal)? @ -Fluid overload, cellulitis, nonhealing wound, sepsis EKG interpreted by me (3pts min.). @ -[As above] X-rays interpreted by me (1pt min.). @ -[None done] CT interpreted by me (1pt min.). @ -[None done] U/S interpreted by me (1pt. min.). @ -[None done] What testing was considered but not performed or refused? (CT, X-rays, U/S, labs)? Why? @ -[None] What meds were considered but not given or refused? Why? @ -[None] Did you discuss the management of the patient with other professionals (professionals i.e. , PA, PHARMACY TECHNOLOGIST, lab, RT, psych nurse, professor of social work, supervisor paint department, teacher, senior administrative services officer, rn field case manager)? Give summary @ -[No] Was smoking cessation discussed for >3mins.? @ -[No] Was critical care preformed (if so, how long)? @ -[No] Were there social determinants of health that impacted care today? How? (Homelessness, low income, unemployed, alcoholism, drug addiction, transportation, low edu. Level, literacy, decrease access to med. care, intermediate, rehab)? @ -[No] Was there de-escalation of care discussed even if they declined (Discuss DNR or withdrawal of care, Hospice)? DNR status @ -[No] What co-morbidities impacted this encounter? (DM, HTN, Smoking, COPD, CAD, Cancer, CVA, ARF, Chemo, Hep., AIDS, mental health diagnosis, sleep apnea, morbid obesity)? @ -[None] Was patient admitted / discharged? Hospital course, mention meds given and route, prescriptions, significant lab abnormalities, going to OR and other pertinent info. @ -[hospital course] Undiagnosed new problem with uncertain prognosis? @ --year-old female history of ischemic cardiomyopathy, CHF and chronic lower extremity wounds presenting for evaluation of purulent drainage and increased pain and swelling of the bilateral lower extremities. She has been on oral antibiotics for the past 10 days without improvement. She will benefit both from IV diuresis and IV antibiotics. She is afebrile with normal white blood cell count, normal lactic acid. She does have significantly elevated blood pressure which is common for this patient. I discussed case with Dr. Sena who will admit. Drug Therapy requiring intensive monitoring for toxicity (Heparin, Nitro, Insulin, Cardizem)? @ -[No] Were any procedures done? @ -[No] Diagnosis/symptom? @ -[Bilateral lower externally cellulitis] Acute, or Chronic, or Acute on Chronic? @ -[Acute on chronic] Uncomplicated (without systemic symptoms) or Complicated (systemic symptoms)? @ -[Complicated] Side effects of treatment? @ -[No] Exacerbation, Progression, or Severe Exacerbation? @ -[No] Poses a threat to life or bodily function? How? (Chest pain, USA, DE, pneumonia, PE, COPD, DKA, ARF, appy, cholecystitis, CVA, Diverticulitis, Homicidal, Suicidal, threat to staff... and all critical care pts) @ -[This progressive to increase fluid overload, sepsis, systemic infection hypoperfusion.] - Lab Data Result diagrams: 06/08/22 13:53 06/08/22 13:53 Lab Results 06/08/22 06/08/22 06/08/22 Range/Units 13:53 13:53 13:53 WBC 4.9 (3.8-10.6) k/uL RBC 4.97 (3.80-5.40) m/uL Hgb 12.7 (11.4-16.0) gm/dL Hct 41.2 (34.0-46.0) % MCV 82.9 (80.0-100.0) fL MCH 25.6 (25.0-35.0) pg MCHC 30.9 L (31.0-37.0) g/dL RDW 16.1 H (11.5-15.5) % Plt Count 217 (150-450) k/uL MPV 7.9 Neutrophils % 73 % Lymphocytes % 17 % Monocytes % 5 % Eosinophils % 3 % Basophils % 0 % Neutrophils # 3.6 (1.3-7.7) k/uL Lymphocytes # 0.8 L (1.0-4.8) k/uL Monocytes # 0.2 (0-1.0) k/uL Eosinophils # 0.2 (0-0.7) k/uL Basophils # 0.0 (0-0.2) k/uL Anisocytosis Slight PT 12.6 H (9.0-12.0) sec INR 1.2 H (<1.2) APTT 25.9 (22.0-30.0) sec Sodium 139 (137-145) mmol/L Potassium 3.9 (3.5-5.1) mmol/L Chloride 102 (98-107) mmol/L Carbon Dioxide 25 (22-30) mmol/L Anion Gap 12 mmol/L BUN 20 H (7-17) mg/dL Creatinine 0.91 (0.52-1.04) mg/dL Est GFR (CKD-EPI)AfAm 90 (>60 ml/min/1.73 sqM) Est GFR (CKD-EPI)NonAf 78 (>60 ml/min/1.73 sqM) Glucose 162 H (74-99) mg/dL Plasma Lactic Acid Dalton (0.7-2.0) mmol/L Calcium 9.4 (8.4-10.2) mg/dL Magnesium 1.7 (1.6-2.3) mg/dL Total Bilirubin 1.9 H (0.2-1.3) mg/dL AST 19 (14-36) U/L ALT 14 (4-34) U/L Alkaline Phosphatase 104 (38-126) U/L Total Protein 7.5 (6.3-8.2) g/dL Albumin 4.1 (3.5-5.0) g/dL 06/08/22 Range/Units 13:53 WBC (3.8-10.6) k/uL RBC (3.80-5.40) m/uL Hgb (11.4-16.0) gm/dL Hct (34.0-46.0) % MCV (80.0-100.0) fL MCH (25.0-35.0) pg MCHC (31.0-37.0) g/dL RDW (11.5-15.5) % Plt Count (150-450) k/uL MPV Neutrophils % % Lymphocytes % % Monocytes % % Eosinophils % % Basophils % % Neutrophils # (1.3-7.7) k/uL Lymphocytes # (1.0-4.8) k/uL Monocytes # (0-1.0) k/uL Eosinophils # (0-0.7) k/uL Basophils # (0-0.2) k/uL Anisocytosis PT (9.0-12.0) sec INR (<1.2) APTT (22.0-30.0) sec Sodium (137-145) mmol/L Potassium (3.5-5.1) mmol/L Chloride (98-107) mmol/L Carbon Dioxide (22-30) mmol/L Anion Gap mmol/L BUN (7-17) mg/dL Creatinine (0.52-1.04) mg/dL Est GFR (CKD-EPI)AfAm (>60 ml/min/1.73 sqM) Est GFR (CKD-EPI)NonAf (>60 ml/min/1.73 sqM) Glucose (74-99) mg/dL Plasma Lactic Acid Dalton 1.2 (0.7-2.0) mmol/L Calcium (8.4-10.2) mg/dL Magnesium (1.6-2.3) mg/dL Total Bilirubin (0.2-1.3) mg/dL AST (14-36) U/L ALT (4-34) U/L Alkaline Phosphatase (38-126) U/L Total Protein (6.3-8.2) g/dL Albumin (3.5-5.0) g/dL Disposition Clinical Impression: Bilateral lower extremity edema, Ulcer of left lower extremity with fat layer exposed, Ulcer of right lower extremity with fat layer exposed, History of congestive heart failure Disposition: ADMITTED IP TO THIS [facility] Condition: Serious Is patient prescribed a controlled substance at d/c from ED?: No Referrals: Odell Sena MD [Primary Care Provider] - 1-2 days Time of Disposition: 14:33
[2022-06-08 14:22] LABS: Albumin 4.1 g/dL (3.5-5.0); Calcium 9.4 mg/dL (8.4-10.2); Magnesium 1.7 mg/dL (1.6-2.3); Potassium 3.9 mmol/L (3.5-5.1); Total Bilirubin 1.9 mg/dL (0.2-1.3); Total Protein 7.5 g/dL (6.3-8.2)
[2022-06-08] MEDS ORDERED: FUROSEMIDE 10 MG/ML 4 ML VIAL IV STA (14:27)
[2022-06-08 14:28] LABS: INR 1.2 (<1.2); Partial Thromboplastin Time 25.9 sec (22.0-30.0); Prothrombin Time 12.6 sec (9.0-12.0)
[2022-06-08] MEDS ORDERED: CLINDAMYCIN 600 MG in DEXTROSE 5% IN WATER 50 ML IVPB STA ×2 (14:29)
[2022-06-08] MEDS ORDERED: NALOXONE 0.4 MG/ML 1 ML VIAL IV PRN (14:29)
[2022-06-08] MEDS ORDERED: AZTREONAM 2 GM in SODIUM CHLORIDE 0.9% 100 ML IVPB SCH (16:00)
[2022-06-08] MEDS ORDERED: ONDANSETRON 4 MG TAB PO PRN (16:31)
[2022-06-08] MEDS ORDERED: NITROGLYCERIN 0.4MG/HR PATCH TRANSDERM PRN (16:31)
[2022-06-08] MEDS ORDERED: ALBUTEROL HFA INHALER INHALATION PRN (16:31)
[2022-06-08] MEDS ORDERED: metOLazone 2.5 MG TAB PO PRN (16:31)
[2022-06-08] MEDS ORDERED: HYDROmorphone 2 MG TAB PO PRN (16:31)
[2022-06-08] MEDS ORDERED: LABETALOL 5 MG/ML VIAL MDV IVP STA (16:33)
[2022-06-08] MEDS: HYDROmorphone 1 MG/ML 1 ML SYRINGE IVP PRN ×2 (17:33→22:47)
[2022-06-08] MEDS: cloNIDine HCL 0.1 MG TAB PO SCH (17:42)
[2022-06-08] MEDS: hydrALAZINE HCL 50 MG TAB PO SCH (17:42)
[2022-06-08 17:56] LABS: Glucose,Whole Blood 105 mg/dL (70-110)
[2022-06-08] MEDS: metOLazone 5 MG TAB PO SCH (18:37)
--- NOTE | 2022-06-08 18:47 | P.CONS ---
History of Present Illness - Reason for Consult Consult date: 06/08/22 Bilateral lower extremity cellulitis Requesting physician: Anselmo Jerry - Chief Complaint Increasing swelling redness and drainage to lower extremity x days - History of Present Illness Patient is a 41-year-old female with a past medical history negative for atrial fibrillation coronary disease diabetes hypertension hyperlipidemia history of bilateral lower extremity ulcers and cellulitis for the patient to follow at wound care center antibiotics patient mentioned recently started having increasing swelling redness lower extremity and drainage describing to be more of a greenish patient was started on oral doxycycline which should have about 10 days and did not have any improvement patient did share the pictures of for leg and dressing to the wound care center who advised the patient to go to the [facility] ER for IV antibiotic therapy, patient has been complaining of some chills however denies any high-grade fever and no fever was recorded on presentation to the hospital, patient complaining of diffuse swelling to bilateral lower extremity and also having pain to the leg describing it to be sharp almost 10 out of 10 with no significant radiation did have associated redness and some drainage, patient did have a normal white count kidney function has been normal bilirubin was mildly elevated but liver exams are normal patient did have a blood culture drawn which are currently pending patient was started on vancomycin and clindamycin infectious disease was consulted for further management of antibiotic therapy Review of Systems Positive point has been mentioned in the HPI rest of the systems are negative Past Medical History Past Medical History: Atrial Fibrillation, Asthma, Coronary Artery Disease (CAD), Cancer, Chest Pain / Angina, Heart Failure, Diabetes Mellitus, GERD/Reflux, Hyperlipidemia, Hypertension, Myocardial Infarction ([place]), Pulmonary Embolus (PE), Renal Disease, Respiratory Disorder Additional Past Medical History / Comment(s): CA- lymphoma Last Myocardial Infarction Date:: 04/2019 History of Any Multi-Drug Resistant Organisms: None Reported Past Surgical History: Section, Heart Catheterization With Stent, Joint Replacement, Tonsillectomy, Tubal Ligation Additional Past Surgical History / Comment(s): Partial R knee replacement, PCI/stents, surgery for PE/radiation. 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 Date of Last Stent Placement:: 05/08/19 Past Psychological History: Anxiety, Bipolar, Depression, No Psychological Hx Reported, Schizophrenia Smoking Status: Former smoker Past Alcohol Use History: None Reported Past Drug Use History: None Reported - Past Family History Father Family Medical History: Coronary Artery Disease (CAD), Hyperlipidemia, Hypertension Additional Family Medical History / Comment(s): pins in knee, heart stents x 4. Father is Mother Family Medical History: Coronary Artery Disease (CAD), Dementia, Diabetes Mellitus, Musculoskeletal Disorder, Renal Disease Additional Family Medical History / Comment(s): Parkinson's, stents in heart, neuropathy. Medications and Allergies Home Medications Medication Instructions Recorded Confirmed Type Ferrous Sulfate [Iron] 325 mg PO DAILY 07/11/18 06/08/22 History Atorvastatin [Lipitor] 80 mg PO HS #30 tab 12/06/18 06/08/22 Rx Clopidogrel [Plavix] 75 mg PO DAILY #30 tab 12/06/18 06/08/22 Rx Semaglutide [Ozempic] 0.5 mg SQ MO@2100 11/19/19 06/08/22 History Insulin Glargine,Hum.rec.anlog 40 unit SQ HS 08/07/20 06/08/22 History [Lantus Solostar Pen] Ezetimibe [Zetia] 10 mg PO DAILY #30 tab 02/02/21 06/08/22 Rx Pantoprazole [Protonix] 40 mg PO BID #60 tab 02/02/21 06/08/22 Rx Empagliflozin [Jardiance] 25 mg PO DAILY 07/29/21 06/08/22 History Metoprolol Succinate (ER) [Toprol 100 mg PO DAILY 07/29/21 06/08/22 History XL] Spironolactone 25 mg PO DAILY 07/29/21 06/08/22 History hydrALAZINE HCL [Apresoline] 100 mg PO BID 07/29/21 06/08/22 History Montelukast Sodium [Singulair] 10 mg PO HS 08/26/21 06/08/22 History Nitroglycerin 0.4MG/Hr Patch 1 patch TRANSDERM DAILY PRN 08/26/21 06/08/22 History [Nitro-Dur 0.4MG/Hr Patch] HYDROmorphone [Dilaudid] 4 mg PO Q6H PRN 09/27/21 06/08/22 History ALPRAZolam [Xanax] 1 mg PO BID PRN 03/14/22 06/08/22 History Albuterol Inhaler [Ventolin Hfa 1 - 2 puff INHALATION RT-QID PRN 03/14/22 06/08/22 History Inhaler] Apixaban [Eliquis] 2.5 mg PO BID 03/14/22 06/08/22 History Ondansetron [Zofran] 4 mg PO Q6H PRN 03/14/22 06/08/22 History Torsemide [Demadex] 20 mg PO DAILY 03/14/22 06/08/22 History cloNIDine HCL [Catapres] 0.1 mg PO HS 03/14/22 06/08/22 History Collagenase [Santyl Ointment] 1 applic TOPICAL DAILY 06/08/22 06/08/22 History Potassium Chloride ER [K-Dur 20] 20 meq PO DAILY 06/08/22 06/08/22 History metOLazone [Zaroxolyn] 2.5 mg PO DAILY PRN 06/08/22 06/08/22 History Allergies Allergy/AdvReac Type Severity Reaction Status Date / Time cephalexin [From Keflex] Allergy Rash/Hives Verified 06/08/22 14:16 codeine Allergy Rash/Hives Verified 06/08/22 14:16 Iodine and Iodide Containing Allergy Rash/Hives Verified 06/08/22 14:16 Produc levofloxacin [From Levaquin] Allergy Rash/Hives Verified 06/08/22 14:16 penicillin V Allergy Rash/Hives Verified 06/08/22 14:16 Penicillins Allergy Anaphylaxis Verified 06/08/22 14:16 sulfamethoxazole Allergy Rash/Hives Verified 06/08/22 14:16 [From Bactrim] tramadol Allergy Rash/Hives Verified 06/08/22 14:16 trimethoprim [From Bactrim] Allergy Rash/Hives Verified 06/08/22 14:16 Physical Exam Vitals: Vital Signs Temp Pulse Resp BP Pulse Ox 06/08/22 14:06 109 H 18 179/125 96 06/08/22 12:19 97.7 F 107 H 22 205/145 98 Intake and Output 06/08/22 06/08/22 06/08/22 06:59 14:59 22:59 Other: Weight 98.883 kg GENERAL DESCRIPTION: Middle-aged female lying in bed, no distress. No tachypnea or accessory muscle of respiration use. HEENT: Shows Pallor , no scleral icterus. Oral mucous membrane is dry. No pharyngeal erythema or thrush NECK: Trachea central, no thyromegaly. LUNGS: Unlabored breathing. Clear to auscultation anteriorly. No wheeze or crackle. HEART: S1, S2, regular rate and rhythm. No loud murmur ABDOMEN: Soft, no tenderness , guarding or rigidity, no organomegaly EXTREMITIES: Bilateral lower extremity with significant swelling or redness sup erficial ulceration and some drainage SKIN: No rash, no masses palpable. NEUROLOGICAL: The patient is awake, alert, oriented x3, mood and affect normal. Results CBC & Chem 7: 06/09/22 10:53 06/11/22 05:56 Labs: Abnormal Lab Results - Last 24 Hours (Table) 06/08/22 06/08/22 06/08/22 Range/Units 13:53 13:53 13:53 MCHC 30.9 L (31.0-37.0) g/dL RDW 16.1 H (11.5-15.5) % Lymphocytes # 0.8 L (1.0-4.8) k/uL PT 12.6 H (9.0-12.0) sec INR 1.2 H (<1.2) BUN 20 H (7-17) mg/dL Glucose 162 H (74-99) mg/dL Total Bilirubin 1.9 H (0.2-1.3) mg/dL Assessment and Plan (1) Bilateral lower leg cellulitis Status: Acute Code(s): L03.116 - CELLULITIS OF LEFT LOWER LIMB; L03.115 - CELLULITIS OF RIGHT LOWER LIMB SNOMED Code(s): 479979337 (2) Allergy to multiple antibiotics Status: Acute Code(s): Z88.1 - ALLERGY STATUS TO OTHER ANTIBIOTIC AGENTS SNOMED Code(s): 550964155 (3) Ulcer of left lower extremity with fat layer exposed Status: Acute Code(s): L97.922 - NON-PRS [facility] UNSP PRT OF L LOW LEG W FAT LAYER EXPOSED SNOMED Code(s): 88475716 (4) Ulcer of right lower extremity with fat layer exposed Status: Acute Code(s): L97.912 - NON-PRS [facility] UNSP PRT OF R LOW LEG W FAT LAYER EXPOSED SNOMED Code(s): 53690063 Plan: 1patient with bilateral lower extremity venous stasis ulcer and cellulitis failing outpatient oral doxycycline therapy concern for possible drug-resistant pathogen questionably MRSA versus Pseudomonas. 2patient with multiple antibiotic allergies that would limit the number of antibiotics safe to use. 3patient to continue vancomycin however discontinue clindamycin and Azactam to cover for the gram-negative 4local culture has been obtained to guide further antibiotic therapy 5-local wound care with a dry Aquacel dressing and Ryan wrap for compression We will follow on clinical condition and cultures to further adjust medication if needed Thank you for this consultation we will follow the patient along with you Time with Patient: Greater than 30
[2022-06-08 19:59] LABS: Glucose,Whole Blood 161 mg/dL (70-110)
[2022-06-08] MEDS: PANTOPRAZOLE 40 MG TABLET PO SCH (20:27)
[2022-06-08] MEDS: ATORVASTATIN 80 MG TAB PO SCH (20:27)
[2022-06-08] MEDS: INSULIN DETEMIR (LEVEMIR) 100 UNIT/ML SYR SQ SCH (20:27)
[2022-06-08] MEDS: APIXABAN 2.5 MG TABLET PO SCH (20:27)
[2022-06-08] MEDS: MONTELUKAST 10 MG TAB PO SCH (20:27)
[2022-06-08] MEDS ORDERED: hydrALAZINE HCL 50 MG TAB PO SCH (21:00)
[2022-06-08] MEDS ORDERED: cloNIDine HCL 0.1 MG TAB PO SCH (21:00)
[2022-06-09] MEDS: hydrALAZINE HCL 50 MG TAB PO SCH ×5 (01:53→21:25)
[2022-06-09] MEDS: cloNIDine HCL 0.1 MG TAB PO SCH ×4 (01:53→21:24)
[2022-06-09] MEDS: AZTREONAM 2 GM in SODIUM CHLORIDE 0.9% 100 ML IVPB SCH ×3 (03:24→19:37)
[2022-06-09] MEDS: HYDROmorphone 1 MG/ML 1 ML SYRINGE IVP PRN ×5 (03:25→23:29)
[2022-06-09 05:55] LABS: Glucose,Whole Blood 76 mg/dL (70-110)
[2022-06-09] MEDS ORDERED: VANCOMYCIN 1,500 MG in SODIUM CHLORIDE 0.9% 500 ML 500 ML IVPB SCH (06:00)
[2022-06-09] MEDS ORDERED: TORSEMIDE 20 MG TAB PO SCH (09:00)
[2022-06-09] MEDS: APIXABAN 2.5 MG TABLET PO SCH ×2 (09:39→19:37)
[2022-06-09] MEDS: EZETIMIBE 10 MG TAB PO SCH (09:40)
[2022-06-09] MEDS: CLOPIDOGREL 75 MG TAB PO SCH (09:40)
[2022-06-09] MEDS: FERROUS SULFATE 325 MG TAB PO SCH (09:41)
[2022-06-09] MEDS: METOPROLOL SUCCINATE (ER) 100 MG TAB.ER.24H PO SCH (09:41)
[2022-06-09] MEDS: POTASSIUM CHLORIDE ER 20 MEQ TAB.ER PO SCH (09:41)
[2022-06-09] MEDS: metOLazone 5 MG TAB PO SCH (09:41)
[2022-06-09] MEDS: PANTOPRAZOLE 40 MG TABLET PO SCH ×2 (09:41→19:37)
[2022-06-09] MEDS: SPIRONOLACTONE 25 MG TAB PO SCH (09:41)
--- NOTE | 2022-06-09 09:55 | XR ---
EXAMINATION TYPE: XR chest 2V DATE OF EXAM: 06/09/2022 COMPARISON: 04/25/2022 HISTORY: Lower extremity swelling and pain TECHNIQUE: Frontal and lateral views of the chest are obtained. FINDINGS: The heart is enlarged. There is no pulmonary vascular congestion. Bandlike scarring left m idlung. The lungs are otherwise clear. There is perhaps a tiny left pleural effusion. No pneumothorax . No acute osseous abnormality. IMPRESSION: No acute process. Cardiomegaly without CHF.
[2022-06-09] MEDS: FUROSEMIDE 10 MG/ML 4 ML VIAL IV SCH ×2 (10:39→21:19)
[2022-06-09 11:48] LABS: Glucose,Whole Blood 114 mg/dL (70-110)
[2022-06-09 11:50] LABS: Albumin 3.7 g/dL (3.5-5.0); C Reactive Protein 2.5 mg/dL (<1.0); Calcium 8.7 mg/dL (8.4-10.2); Potassium 3.9 mmol/L (3.5-5.1); Total Bilirubin 1.5 mg/dL (0.2-1.3); Total Protein 6.8 g/dL (6.3-8.2)
[2022-06-09 12:11] LABS: Anisocytosis Slight; Basophils % (A) 0 %; Eosinophils # (A) 0.1 k/uL (0-0.7); Eosinophils % (A) 2 %; HCT 38.1 % (34.0-46.0); Hypochromasia Slight; Lymphocytes # (A) 0.7 k/uL (1.0-4.8); Lymphocytes % (A) 16 %; MCH 26.1 pg (25.0-35.0); MCHC 31.4 g/dL (31.0-37.0); MCV 83.2 fL (80.0-100.0); Monocytes # (A) 0.3 k/uL (0-1.0); Monocytes % (A) 6 %; Neutrophils % (A) 73 %; Platelet Count 192 k/uL (150-450); RBC 4.58 m/uL (3.80-5.40); RDW 16.2 % (11.5-15.5); WBC 4.1 k/uL (3.8-10.6)
--- NOTE | 2022-06-09 13:01 | P.NPCON ---
History of Present Illness - Reason for Consult acute renal failure - History of Present Illness Reason for consultation: Acute kidney injury History of present illness: Patient is a 41-year-old female seen in renal consultation for acute kidney injury. Creatinine on admission was 0.9 and is 1.23 today. Patient takes Demadex at home and was switched over to IV Lasix 40 mg twice daily this admission. Patient presented to the hospital due to problems in her lower extremities. Patient states she follows at wound care and she was advised by them to go to the hospital due to concern for infection. She does admit to edema in her lower extremities. She is receiving IV antibiotics. Patient has a long-standing history of diabetes. Also has history of coronary artery disease with multiple cardiac stents. Denies use of nonsteroidals. No vomiting or diarrhea. No gross hematuria. Vital signs are stable. General: No acute distress. HEENT: Head exam is unremarkable. LUNGS: No audible rhonchi or wheezes. HEART: Rate and Rhythm are regular. ABDOMEN: Nontender. EXTREMITITES: Lower extremities wrapped. 2+ edema. Past Medical History Past Medical History: Atrial Fibrillation, Asthma, Coronary Artery Disease (CAD), Cancer, Chest Pain / Angina, Heart Failure, Diabetes Mellitus, GERD/Reflux, Hyperlipidemia, Hypertension, Myocardial Infarction ([place]), Pulmonary Embolus (PE), Renal Disease, Respiratory Disorder Additional Past Medical History / Comment(s): CA- lymphoma Last Myocardial Infarction Date:: 04/2019 History of Any Multi-Drug Resistant Organisms: None Reported Date of last positivie culture/infection: 08/18/21 MDRO Source:: leg wounds Past Surgical History: Section, Heart Catheterization With Stent, Joint Replacement, Tonsillectomy, Tubal Ligation Additional Past Surgical History / Comment(s): Partial R knee replacement, PCI/stents, surgery for PE/radiation. 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 Date of Last Stent Placement:: 05/08/19 Past Psychological History: Anxiety, Bipolar, Depression, No Psychological Hx Reported, Schizophrenia Smoking Status: Former smoker Past Alcohol Use History: None Reported Past Drug Use History: None Reported - Past Family History Father Family Medical History: Coronary Artery Disease (CAD), Hyperlipidemia, Hypertension Additional Family Medical History / Comment(s): pins in knee, heart stents x 4. Father is Mother Family Medical History: Coronary Artery Disease (CAD), Dementia, Diabetes Mellitus, Musculoskeletal Disorder, Renal Disease Additional Family Medical History / Comment(s): Parkinson's, stents in heart, neuropathy. Medications and Allergies Home Medications Medication Instructions Recorded Confirmed Type Ferrous Sulfate [Iron] 325 mg PO DAILY 07/11/18 06/08/22 History Atorvastatin [Lipitor] 80 mg PO HS #30 tab 12/06/18 06/08/22 Rx Clopidogrel [Plavix] 75 mg PO DAILY #30 tab 12/06/18 06/08/22 Rx Semaglutide [Ozempic] 0.5 mg SQ MO@2100 11/19/19 06/08/22 History Insulin Glargine,Hum.rec.anlog 40 unit SQ HS 08/07/20 06/08/22 History [Lantus Solostar Pen] Ezetimibe [Zetia] 10 mg PO DAILY #30 tab 02/02/21 06/08/22 Rx Pantoprazole [Protonix] 40 mg PO BID #60 tab 02/02/21 06/08/22 Rx Empagliflozin [Jardiance] 25 mg PO DAILY 07/29/21 06/08/22 History Metoprolol Succinate (ER) [Toprol 100 mg PO DAILY 07/29/21 06/08/22 History XL] Spironolactone 25 mg PO DAILY 07/29/21 06/08/22 History hydrALAZINE HCL [Apresoline] 100 mg PO BID 07/29/21 06/08/22 History Montelukast Sodium [Singulair] 10 mg PO HS 08/26/21 06/08/22 History Nitroglycerin 0.4MG/Hr Patch 1 patch TRANSDERM DAILY PRN 08/26/21 06/08/22 History [Nitro-Dur 0.4MG/Hr Patch] HYDROmorphone [Dilaudid] 4 mg PO Q6H PRN 09/27/21 06/08/22 History ALPRAZolam [Xanax] 1 mg PO BID PRN 03/14/22 06/08/22 History Albuterol Inhaler [Ventolin Hfa 1 - 2 puff INHALATION RT-QID PRN 03/14/22 06/08/22 History Inhaler] Apixaban [Eliquis] 2.5 mg PO BID 03/14/22 06/08/22 History Ondansetron [Zofran] 4 mg PO Q6H PRN 03/14/22 06/08/22 History Torsemide [Demadex] 20 mg PO DAILY 03/14/22 06/08/22 History cloNIDine HCL [Catapres] 0.1 mg PO HS 03/14/22 06/08/22 History Collagenase [Santyl Ointment] 1 applic TOPICAL DAILY 06/08/22 06/08/22 History Potassium Chloride ER [K-Dur 20] 20 meq PO DAILY 06/08/22 06/08/22 History metOLazone [Zaroxolyn] 2.5 mg PO DAILY PRN 06/08/22 06/08/22 History Allergies Allergy/AdvReac Type Severity Reaction Status Date / Time cephalexin [From Keflex] Allergy Rash/Hives Verified 06/08/22 14:16 codeine Allergy Rash/Hives Verified 06/08/22 14:16 Iodine and Iodide Containing Allergy Rash/Hives Verified 06/08/22 14:16 Produc levofloxacin [From Levaquin] Allergy Rash/Hives Verified 06/08/22 14:16 penicillin V Allergy Rash/Hives Verified 06/08/22 14:16 Penicillins Allergy Anaphylaxis Verified 06/08/22 14:16 sulfamethoxazole Allergy Rash/Hives Verified 06/08/22 14:16 [From Bactrim] tramadol Allergy Rash/Hives Verified 06/08/22 14:16 trimethoprim [From Bactrim] Allergy Rash/Hives Verified 06/08/22 14:16 Physical Exam Vitals: Vital Signs Temp Pulse Pulse Pulse Resp BP BP 06/09/22 12:19 65 17 111/76 06/09/22 11:46 98.5 F 65 17 111/70 06/09/22 10:20 98.3 F 77 18 141/88 06/09/22 09:55 86 06/09/22 09:35 130/80 06/09/22 07:05 98.8 F 86 16 131/81 06/09/22 04:00 97.9 F 88 16 144/87 06/09/22 00:00 99.0 F 92 16 126/81 06/08/22 20:00 98.6 F 88 16 110/68 06/08/22 19:02 115/67 06/08/22 18:37 106/63 06/08/22 17:37 97.8 F 87 18 172/109 06/08/22 17:07 90 18 06/08/22 17:01 91 20 165/116 06/08/22 16:13 102 H 18 195/127 06/08/22 14:06 109 H 18 179/125 Pulse Ox 06/09/22 12:19 98 06/09/22 11:46 96 06/09/22 10:20 96 06/09/22 09:55 06/09/22 09:35 06/09/22 07:05 95 06/09/22 04:00 96 06/09/22 00:00 95 06/08/22 20:00 94 L 06/08/22 19:02 06/08/22 18:37 06/08/22 17:37 100 06/08/22 17:07 97 06/08/22 17:01 96 06/08/22 16:13 97 06/08/22 14:06 96 Intake and Output 06/08/22 06/09/22 06/09/22 22:59 06:59 14:59 Intake Total 600 Output Total 350 Balance -350 600 Intake: Oral 600 Output: Urine 350 Other: Voiding Method Toilet Toilet Toilet # Voids 1 Weight 97.159 kg 97.7 kg Results - Lab Results Most recent lab results Calcium 8.7 mg/dL (8.4-10.2) 06/09/22 10:53 Magnesium 1.7 mg/dL (1.6-2.3) 06/08/22 13:53 06/09/22 10:53 06/09/22 10:53 Assessment and Plan Plan: Assessment: 1. Acute kidney injury mostly prerenal secondary to diuresis. Creatinine 1.23 today. 2. Lower extremity cellulitis on IV antibiotics. ID following. 3. Diabetes mellitus. 4. Coronary disease status post cardiac stents. 5. Benign hypertension. 6. Acute on chronic systolic CHF with ejection fraction of 35-40%. Plan: Maintain IV Lasix. Stop metolazone. Hold clonidine and hydralazine for systolic blood pressure less than 110. Check urinalysis. Check renal ultrasound. Avoid nephrotoxins. Continue to monitor renal function and urine output. Follow-up echocardiogram. Thank you for the consultation. I will continue to follow the patient with you during her hospital stay.
[2022-06-09] MEDS: ALPRAZolam 1 MG TAB PO PRN (13:20)
[2022-06-09 14:40] LABS: Appearance,Urine Cloudy (Clear); Bacteria,Urine Occasional /hpf; Bilirubin,Urine Negative (Negative); Blood,Urine Negative (Negative); Color,Urine Yellow; Glucose,Urine (UA) Negative (Negative); Ketones,Urine Negative (Negative); Leukocyte Esterase,Urine Small (Negative); Mucus,Urine Rare /hpf; Nitrite,Urine Negative (Negative); PH, Urine 6.5 (5.0-8.0); Protein,Urine 1+ (Negative); RBC,Urine 1 /hpf (0-5); Specific Gravity,Urine 1.007 (1.001-1.035); Squamous Epithelial Cell,Urine 9 /hpf (0-4); Urobilinogen,Urine <2.0 mg/dL (<2.0); WBC,Urine 5 /hpf (0-5)
--- NOTE | 2022-06-09 14:50 | US ---
EXAMINATION TYPE: US kidneys/renal and bladder DATE OF EXAM: 06/09/2022 COMPARISON: 03/16/2022 CLINICAL HISTORY: Acute kidney infection. EXAM MEASUREMENTS: Right Kidney: 11.7 x 4.4 x 5.0 cm Left Kidney: 10.8 x 5.0 x 4.1 cm Right Kidney: Possible trace perirenal fluid inferior pole Left Kidney: wnl Bladder: Not visualized. Extensive free fluid coupled with recent void limiting exam Bilateral Jets seen: No There is no evidence for hydronephrosis at this point in time. No nephrolithiasis is seen. No angelica s are identified. Cortical medullary junction is maintained bilaterally. No perinephric fluid collections. Urinary bladder is not visualized. Incidental finding of ascites, gallbladder wall thickening, and enlarged spleen. No cholelithiasis. IMPRESSION: 1. No evidence for hydronephrosis, nephrolithiasis, or perinephric fluid collections. 2. Abdominal ascites with splenomegaly. 3. Gallbladder wall thickening which is likely related to #2.
--- NOTE | 2022-06-09 15:11 | P.PN ---
Subjective Progress Note Date: 06/09/22 Principal diagnosis: Bilateral lower extremity venous ulcers and cellulitis Patient is a 41 year old female with a past medical history significant for bilateral lower extremity venous stasis ulcers and cellulitis failing outpatient oral antibiotic therapy. On today's evaluation that is 06/09/2022, the patient denies having any fevers or any chills, the patient bilateral lower extremity pain and drainage has Slightly decreased in intensity, no chest pain shortness of breath or cough no abdominal pain or diarrhea Objective - Vital Signs Vital signs: Vital Signs Temp 98.3 F 06/09/22 10:20 Pulse 77 06/09/22 10:20 Resp 18 06/09/22 10:20 BP 141/88 06/09/22 10:20 Pulse Ox 96 06/09/22 10:20 FiO2 Intake & Output 06/08/22 06/09/22 06/09/22 18:59 06:59 18:59 Intake Total 600 Output Total 350 Balance -350 600 Weight 97.159 kg 97.7 kg Intake: Oral 600 Output: Urine 350 Other: Voiding Method Toilet Toilet Toilet # Voids 1 - Exam GENERAL DESCRIPTION: Middle-age female up in the chair in no distress RESPIRATORY SYSTEM: Unlabored breathing , decreased breath sounds at bases HEART: S1 S2 regular rate and rhythm , ABDOMEN: Soft , no tenderness EXTREMITIES: Bilateral lower extremity currently wrapped no drainage on the dressing - Labs CBC & Chem 7: 06/09/22 10:53 06/09/22 10:53 Labs: Abnormal Lab Results - Last 24 Hours (Table) 06/08/22 06/08/22 06/08/22 Range/Units 13:53 13:53 13:53 MCHC 30.9 L (31.0-37.0) g/dL RDW 16.1 H (11.5-15.5) % Lymphocytes # 0.8 L (1.0-4.8) k/uL PT 12.6 H (9.0-12.0) sec INR 1.2 H (<1.2) BUN 20 H (7-17) mg/dL Creatinine (0.52-1.04) mg/dL Glucose 162 H (74-99) mg/dL POC Glucose (mg/dL) (70-110) mg/dL Total Bilirubin 1.9 H (0.2-1.3) mg/dL C-Reactive Protein (<1.0) mg/dL 06/08/22 06/09/22 06/09/22 Range/Units 19:58 10:53 11:46 MCHC (31.0-37.0) g/dL RDW (11.5-15.5) % Lymphocytes # (1.0-4.8) k/uL PT (9.0-12.0) sec INR (<1.2) BUN 23 H (7-17) mg/dL Creatinine 1.23 H (0.52-1.04) mg/dL Glucose 116 H (74-99) mg/dL POC Glucose (mg/dL) 161 H 114 H (70-110) mg/dL Total Bilirubin 1.5 H (0.2-1.3) mg/dL C-Reactive Protein 2.5 H (<1.0) mg/dL Microbiology - Last 24 Hours (Table) 06/08/22 15:08 Wound Culture - Preliminary Leg - Right Assessment and Plan (1) Cellulitis of left leg Current Visit: No Status: Acute Code(s): L03.116 - CELLULITIS OF LEFT LOWER LIMB SNOMED Code(s): 235009131 (2) Cellulitis of right leg Current Visit: No Status: Acute Code(s): L03.115 - CELLULITIS OF RIGHT LOWER LIMB SNOMED Code(s): 965342355 Plan: 1patient with bilateral lower extremity venous stasis ulcer and cellulitis failing outpatient oral doxycycline therapy concern for possible drug-resistant pathogen questionably MRSA versus Pseudomonas. 2patient with multiple antibiotic allergies that would limit the number of antibiotics safe to use. 3patient to continue vancomycin and Azactam while waiting for the cultures to finalize 4-local wound care with a dry Aquacel dressing and Ryan wrap for compression Time with Patient: Less than 30
[2022-06-09 16:22] LABS: Glucose,Whole Blood 128 mg/dL (70-110)
--- NOTE | 2022-06-09 16:22 | CONS ---
CONSULTATION HISTORY OF PRESENT ILLNESS: This is a 41-year-old lady with a history of diabetes, ischemic cardiomyopathy, previous PCI of LAD and circumflex with an LV thrombus that was noted in February, for which, she has been on anticoagulation. 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 She came in because of discomfort in the leg, swelling, and also has what seems to be an active cellulitis. She is here in this regard, and I was asked to see her because of her history of ischemic cardiomyopathy. She has had progressively increasing swelling of her lower extremities and apparently has what seems to be a drainage of these wounds, purulent in nature according to the note, and now she is bandaged. She was being on doxycycline for a while, and she is here in this regard, and Infectious Disease consult is in place. She denies any chest discomfort. She has no shortness of breath, but her activity is limited. She has an LV thrombus, and ejection fraction in February on the echocardiogram was diminished at 35% to 40% with anteroapical septal hypokinesia to almost akinesia with a left ventricular apical thrombus. She has, however, no chest discomfort at the time of my evaluation, and lower extremity edema seems to be more related to localized causes. She has no shortness of breath. She is resting comfortably. EKG revealed sinus mechanism with poor R-wave progression and minor nonspecific ST and T-wave changes. Chest x-ray from this morning does not reveal any evidence of heart failure. Cardiomegaly seems to be noted. She is not in overt heart failure. She is resting comfortably without symptoms. PAST MEDICAL HISTORY: 1. Ischemic cardiomyopathy with multivessel stenting and left ventricular apical thrombus on echo from February 2022. 2. Type 2 diabetes. 3. Hypertension. 4. Chronic lower extremity edema, now with cellulitis. 5. History of CAD. PHYSICAL EXAMINATION: VITAL SIGNS: Blood pressure is 130/70. Pulse rate is about 70 per minute, regular. HEENT: Unremarkable. Fundus was not examined by me. NECK: Supple. I cannot appreciate any significant JVD. There is no carotid bruit. HEART: Reveals S1 and S2 heard normally. No significant murmurs. LUNGS: Revealed decent air entry. No rales or rhonchi. ABDOMEN: Soft and distended. EXTREMITIES: Her lower extremity examination reveals that there are bandages, and there is edema. I did not examine the wounds. CENTRAL NERVOUS SYSTEM: Grossly, no focal deficits. IMPRESSION: 1. Lower extremity edema with cellulitis. 2. History of ischemic cardiomyopathy, but no heart failure at this time. 3. Diabetes mellitus. 4. Hypertension. 5. Hyperlipidemia. 6. History of left ventricular apical thrombus on echo from February. RECOMMENDATIONS: I am recommending that we will obtain a BNP, give her some IV Lasix to help the edema resolve, so her healing will be better, seek input from Infectious Disease for cellulitis, and obtain a limited echo to assess LV function and apical thrombus. Prognosis remains guarded. Thank you very much for the consult. [email or web address] / IJN: [id number] /
[2022-06-09] MEDS: ATORVASTATIN 80 MG TAB PO SCH (19:37)
[2022-06-09] MEDS: MONTELUKAST 10 MG TAB PO SCH (19:37)
[2022-06-09 20:16] LABS: Glucose,Whole Blood 126 mg/dL (70-110)
[2022-06-09] MEDS: INSULIN DETEMIR (LEVEMIR) 100 UNIT/ML SYR SQ SCH (21:17)
--- NOTE | 2022-06-10 03:43 | HP ---
HISTORY AND PHYSICAL CHIEF COMPLAINT: Shortness of breath and congestive heart failure with bilateral lower extremity cellulitis and skin breakdown. HISTORY OF PRESENT ILLNESS: This lady has been in and out of the hospital over the last several years. She has cardiomyopathy with congestive heart failure and advanced cellulitis with secondary bacterial infection of the lower legs and below the knees. She usually has very poor control of hypertension. She has a cardiomyopathy and has been sent to [place] where they told that she could be a heart transplant candidate. However, she pushed around from doctor to doctor and lately has been going to [place] for wound care of her lower extremities, which isn't going well. They are becoming increasingly infected with purulent discharge. She always insisted that her blood pressures are under good control when they are not. In the emergency room, her blood pressure was 205/145. REVIEW OF SYSTEMS: She has had no neurologic problems and she has had no fever or chills. She has had no chest pain, cough, or hemoptysis. She is short of breath. She has had no abdominal pain, vomiting, diarrhea, melena, flank pain, dysuria, frequency, incontinence, etc. Past medical history, family history, and personal and social histories are unchanged from her previous admitting and discharge summaries. PHYSICAL EXAMINATION: VITAL SIGNS: Blood pressure is 179/125 and then was repeated at 165/116. Pulse is 88 and regular, respirations are 42. She is afebrile. GENERAL: She appeared to be obese, short of breath and edematous. HEAD, EARS, EYES, NOSE, MOUTH, AND THROAT: Normal. NECK: Neck veins could not be assessed. CHEST: Demonstrated decreased breath sounds with wheezes, rales, and rhonchi throughout. CARDIAC: Demonstrated sinus tachycardia with an S3 and S4. ABDOMEN: Protuberant. EXTREMITIES: Wrapped with Ryan wraps in the knees distally. NEUROLOGICAL: She is intact. DIAGNOSES: She is admitted to the hospital with diagnosis of: 1. Acute congestive heart failure. 2. Chronic congestive heart failure. 3. Atherosclerotic cardiomyopathy. 4. Lower extremity venous insufficiency with chronic infected and purulent cellulitis. 5. Uncontrolled hypertension. PLAN: 1. Bed rest. 2. IV fluids. 3. Diuresis. 4. Consult Infectious Disease. MMODL / IJN: [id number] /
[2022-06-10] MEDS: HYDROmorphone 1 MG/ML 1 ML SYRINGE IVP PRN ×5 (03:46→23:58)
[2022-06-10] MEDS: AZTREONAM 2 GM in SODIUM CHLORIDE 0.9% 100 ML IVPB SCH ×3 (03:47→22:18)
--- NOTE | 2022-06-10 04:58 | PN ---
PROGRESS NOTE DATE OF SERVICE: 06/09/2022 CHIEF COMPLAINT: Acute on chronic congestive heart failure with cardiomyopathy. HISTORY OF PRESENT ILLNESS: This lady is still complaining of significant pain in the lower extremities. Blood pressure has been stable. Renal function is somewhat impaired with a BUN of 38, and creatinine 2.4, which has improved. BUN 23 and creatinine 1.23. PHYSICAL EXAMINATION: CHEST: Demonstrates decreased breath sounds. CARDIAC: Normal. ABDOMEN: Protuberant, soft. EXTREMITIES: Wrapped. IMPRESSION: 1. Acute congestive heart failure. 2. Chronic congestive heart failure. 3. Atherosclerotic cardiomyopathy. 4. Obesity. 5. Probable prerenal azotemia. 6. Chronic infected and draining cellulitis of lower extremities. PLAN: Continue with slow diuresis and watch renal function. MMODL / IJN: [id number] /
[2022-06-10 06:20] LABS: Glucose,Whole Blood 83 mg/dL (70-110)
[2022-06-10] MEDS: VANCOMYCIN 1,500 MG in SODIUM CHLORIDE 0.9% 500 ML 500 ML IVPB SCH (06:32)
[2022-06-10 08:04] LABS: Calcium 8.9 mg/dL (8.4-10.2); Magnesium 1.8 mg/dL (1.6-2.3); Potassium 4.2 mmol/L (3.5-5.1)
[2022-06-10] MEDS: FUROSEMIDE 10 MG/ML 4 ML VIAL IV SCH (08:08)
[2022-06-10] MEDS: hydrALAZINE HCL 50 MG TAB PO SCH ×5 (08:08→22:19)
[2022-06-10] MEDS: FERROUS SULFATE 325 MG TAB PO SCH (08:09)
[2022-06-10] MEDS: PANTOPRAZOLE 40 MG TABLET PO SCH ×2 (08:09→22:19)
[2022-06-10] MEDS: EZETIMIBE 10 MG TAB PO SCH (08:09)
[2022-06-10] MEDS: POTASSIUM CHLORIDE ER 20 MEQ TAB.ER PO SCH (08:09)
[2022-06-10] MEDS: SPIRONOLACTONE 25 MG TAB PO SCH (08:09)
[2022-06-10] MEDS: METOPROLOL SUCCINATE (ER) 100 MG TAB.ER.24H PO SCH (08:09)
[2022-06-10] MEDS: cloNIDine HCL 0.1 MG TAB PO SCH ×3 (08:09→22:19)
[2022-06-10] MEDS: APIXABAN 2.5 MG TABLET PO SCH ×2 (08:09→22:19)
[2022-06-10] MEDS: CLOPIDOGREL 75 MG TAB PO SCH (08:15)
--- NOTE | 2022-06-10 10:49 | P.PN ---
Subjective Progress Note Date: 06/10/22 HISTORY OF PRESENT ILLNESS: Patient seen and examined this morning at the bedside. Patient denies chest pain or pressure. Denies shortness of breath. She reports improvement in her lower extremity edema. She remains on IV Lasix. Creatinine increased to 1.56. PHYSICAL EXAM: VITAL SIGNS: Reviewed. GENERAL: Well-developed in no acute distress. NECK: Supple. No JVD or thyromegaly LUNGS: Respirations even and unlabored. Lungs essentially clear to auscultation bilaterally. HEART: Regular rate and rhythm. S1 and S2 heard. EXTREMITIES: Normal range of motion. No clubbing or cyanosis. Peripheral pulses intact. Bilateral lower extremity edema ASSESSMENT: Lower extremity edema with cellulitis History of ischemic cardiomyopathy Hypertension Hyperlipidemia History of left ventricular apical thrombus, on anticoagulation Diabetes Coronary artery disease with previous stenting PLAN: Discontinue IV Lasix Resume home dose of Demadex No further inpatient recommendations from a cardiac standpoint We will sign off. Please reconsult if needed. Nurse practitioner note has been reviewed by physician. Signing provider agrees with the documented findings, assessment, and plan of care. Objective - Vital Signs Vital signs: Vital Signs Temp 98.2 F 06/10/22 08:00 Pulse 56 L 06/10/22 08:00 Resp 16 06/10/22 08:00 BP 116/56 06/10/22 08:00 Pulse Ox 95 06/10/22 08:00 FiO2 Intake & Output 06/09/22 06/10/22 06/10/22 18:59 06:59 18:59 Intake Total 960 118 Output Total 100 Balance 860 118 Weight 99.6 kg 100 kg Intake: Oral 960 118 Output: Urine 100 Other: Voiding Method Toilet Toilet # Voids 1 - Labs CBC & Chem 7: 06/09/22 10:53 06/10/22 07:34 Labs: Abnormal Lab Results - Last 24 Hours (Table) 06/09/22 06/09/22 06/09/22 Range/Units 10:53 10:53 11:46 RDW 16.2 H (11.5-15.5) % Lymphocytes # 0.7 L (1.0-4.8) k/uL BUN 23 H (7-17) mg/dL Creatinine 1.23 H (0.52-1.04) mg/dL Glucose 116 H (74-99) mg/dL POC Glucose (mg/dL) 114 H (70-110) mg/dL Total Bilirubin 1.5 H (0.2-1.3) mg/dL C-Reactive Protein 2.5 H (<1.0) mg/dL Urine Appearance (Clear) Urine Protein (Negative) Ur Leukocyte Esterase (Negative) Ur Squamous Epith Cells (0-4) /hpf Urine Bacteria (None) /hpf Urine Mucus (None) /hpf 06/09/22 06/09/22 06/09/22 Range/Units 13:50 16:20 20:15 RDW (11.5-15.5) % Lymphocytes # (1.0-4.8) k/uL BUN (7-17) mg/dL Creatinine (0.52-1.04) mg/dL Glucose (74-99) mg/dL POC Glucose (mg/dL) 128 H 126 H (70-110) mg/dL Total Bilirubin (0.2-1.3) mg/dL C-Reactive Protein (<1.0) mg/dL Urine Appearance Cloudy H (Clear) Urine Protein 1+ H (Negative) Ur Leukocyte Esterase Small H (Negative) Ur Squamous Epith Cells 9 H (0-4) /hpf Urine Bacteria Occasional H (None) /hpf Urine Mucus Rare H (None) /hpf 06/10/22 Range/Units 07:34 RDW (11.5-15.5) % Lymphocytes # (1.0-4.8) k/uL BUN 31 H (7-17) mg/dL Creatinine 1.56 H (0.52-1.04) mg/dL Glucose 105 H (74-99) mg/dL POC Glucose (mg/dL) (70-110) mg/dL Total Bilirubin (0.2-1.3) mg/dL C-Reactive Protein (<1.0) mg/dL Urine Appearance (Clear) Urine Protein (Negative) Ur Leukocyte Esterase (Negative) Ur Squamous Epith Cells (0-4) /hpf Urine Bacteria (None) /hpf Urine Mucus (None) /hpf Microbiology - Last 24 Hours (Table) 06/08/22 15:08 Gram Stain - Preliminary Leg - Right Wound Culture - Preliminary Strep agalactiae - (group b) Gram Neg Bacilli Gram Neg Bacilli#2 06/08/22 13:55 Blood Culture - Preliminary Blood No Growth after 24 hours 06/08/22 13:40 Blood Culture - Preliminary Blood No Growth after 24 hours
[2022-06-10] MEDS: TORSEMIDE 20 MG TAB PO SCH (11:40)
--- NOTE | 2022-06-10 11:44 | CA ---
Transthoracic Echo Report Name: Petty Blackwood Age: 41 Gender: F : 1980 Exam Date: 06/09/2022 13:25 Exam Location: [facility] Ht (in): 62 Wt (lb): 215 Ordering Physician: Kim Carter Attending/Referring Phys: [id number], Raul [employer] Camera Operator Yee Davis RDCS Procedure CPT: Indications: LV function, hx of apical thrombus Cardiac Hx: Technical Quality: Fair Contrast 1: Lumason Total Dose (mL): 2 Contrast 2: Total Dose (mL): MEASUREMENTS (Male / Female) Normal Values 2D ECHO LV Diastolic Diameter PLAX 4.3 cm 4.2 - 5.9 / 3.9 - 5.3 cm LV Systolic Diameter PLAX 3.4 cm IVS Diastolic Thickness 1.6 cm 0.6 - 1.0 / 0.6 - 0.9 cm LVPW Diastolic Thickness 1.5 cm 0.6 - 1.0 / 0.6 - 0.9 cm LV Relative Wall Thickness 0.7 RV Internal Dim ED PLAX 4.0 cm LA Volume 91.0 cm??? 18 - 58 / 22 - 52 cm??? M-MODE Aortic Root Diameter MM 2.5 cm LA Systolic Diameter MM 4.9 cm LA Ao Ratio MM 2.0 DOPPLER AV Peak Velocity 107.8 cm/s AV Peak Gradient 4.6 mmHg LVOT Peak Velocity 88.6 cm/s LVOT Peak Gradient 3.1 mmHg TR Peak Velocity 242.8 cm/s TR Peak Gradient 23.6 mmHg Right Ventricular Systolic Press 27.2 mmHg FINDINGS Left Ventricle Moderately increased septal wall thickness. Moderately increased posterior wall thickness. Left ventricular ejection fraction is estimated at 40-45 %. [place] hypokinetic. Flattened septum in systole consistent with right ventricle pressure overload. Probable left ventricular apical thrombus. Right Ventricle Severe right ventricular dilatation. Mildly increased right ventricular wall thickness. Right ventricular systolic pressure within normal limits. Right Atrium Moderate right atrial dilatation. Aneurismal atrial septum. Left Atrium Severely increased left atrial volume. Mildly increased left atrial area. Mitral Valve Structurally normal mitral valve. Mild mitral regurgitation. Aortic Valve No aortic valve stenosis or regurgitation. Tricuspid Valve Structurally normal tricuspid valve. [id number] tricuspid regurgitation. Pulmonic Valve Mild pulmonic regurgitation. Pericardium Small pericardial effusion. Aorta Normal size aortic root and proximal ascending aorta. CONCLUSIONS Impaired only function was EF between 40-45%. Moderate concentric hypertrophy. Possible a mucoid bacterin D shape of the LV in systole and diastole consistent with pulmonary hypertension/fluid overload Cannot exclude apical thrombus Moderate to severe tricuspid regurgitation Severe RV predilatation Severe tricuspid regurgitation Small circumferential pericardial effusion Previewed by: Dr. Inocente Chaves MD (Electronically Signed) Final Date: 10 June 2022 11:43
--- NOTE | 2022-06-10 11:58 | P.PN ---
Subjective Patient is seen in follow-up for acute kidney injury. Renal function worse from diuresis. Change from IV Lasix to oral Demadex this morning. Denies chest pain or shortness of breath. Has been voiding. Blood pressure stable. Vital signs are stable. General: No acute distress. HEENT: Head exam is unremarkable. LUNGS: No audible rhonchi or wheezes. HEART: Rate and Rhythm are regular. ABDOMEN: Nontender. EXTREMITITES: 1+ edema. Lower extremities wrapped. Objective - Vital Signs Vital signs: Vital Signs Temp 98.2 F 06/10/22 08:00 Pulse 56 L 06/10/22 08:00 Resp 16 06/10/22 08:00 BP 116/56 06/10/22 08:00 Pulse Ox 95 06/10/22 08:00 FiO2 Intake & Output 06/09/22 06/10/22 06/10/22 18:59 06:59 18:59 Intake Total 960 118 Output Total 100 Balance 860 118 Weight 99.6 kg 100 kg Intake: Oral 960 118 Output: Urine 100 Other: Voiding Method Toilet Toilet # Voids 1 - Labs CBC & Chem 7: 06/09/22 10:53 06/10/22 07:34 Labs: Abnormal Lab Results - Last 24 Hours (Table) 06/09/22 06/09/22 06/09/22 Range/Units 10:53 13:50 16:20 RDW 16.2 H (11.5-15.5) % Lymphocytes # 0.7 L (1.0-4.8) k/uL BUN (7-17) mg/dL Creatinine (0.52-1.04) mg/dL Glucose (74-99) mg/dL POC Glucose (mg/dL) 128 H (70-110) mg/dL Urine Appearance Cloudy H (Clear) Urine Protein 1+ H (Negative) Ur Leukocyte Esterase Small H (Negative) Ur Squamous Epith Cells 9 H (0-4) /hpf Urine Bacteria Occasional H (None) /hpf Urine Mucus Rare H (None) /hpf 06/09/22 06/10/22 Range/Units 20:15 07:34 RDW (11.5-15.5) % Lymphocytes # (1.0-4.8) k/uL BUN 31 H (7-17) mg/dL Creatinine 1.56 H (0.52-1.04) mg/dL Glucose 105 H (74-99) mg/dL POC Glucose (mg/dL) 126 H (70-110) mg/dL Urine Appearance (Clear) Urine Protein (Negative) Ur Leukocyte Esterase (Negative) Ur Squamous Epith Cells (0-4) /hpf Urine Bacteria (None) /hpf Urine Mucus (None) /hpf Microbiology - Last 24 Hours (Table) 06/08/22 15:08 Gram Stain - Preliminary Leg - Right Wound Culture - Preliminary Strep agalactiae - (group b) Gram Neg Bacilli Gram Neg Bacilli#2 06/08/22 13:55 Blood Culture - Preliminary Blood No Growth after 24 hours 06/08/22 13:40 Blood Culture - Preliminary Blood No Growth after 24 hours Assessment and Plan Plan: Assessment: 1. Acute kidney injury mostly prerenal secondary to cardiorenal syndrome. Renal function worsening. Creatinine 1.56 today. No hydronephrosis noted on kidney ultrasound. 2. Lower extremity cellulitis on IV antibiotics. ID following. 3. Diabetes mellitus. 4. Coronary disease status post cardiac stents. 5. Benign hypertension. Controlled. 6. Acute on chronic systolic CHF with ejection fraction of 40-45% with moderate to severe tricuspid regurgitation. Plan: IV Lasix changed to oral torsemide this morning. Hold clonidine and hydralazine for systolic blood pressure less than 110. Avoid nephrotoxins. Continue to monitor renal function and urine output. UA shows 1+ protein. Possibly underlying diabetic kidney disease. Further workup outpatient.
[2022-06-10 12:38] LABS: Glucose,Whole Blood 93 mg/dL (70-110)
[2022-06-10] MEDS: ALPRAZolam 1 MG TAB PO PRN (13:09)
[2022-06-10] MEDS ORDERED: INSULIN DETEMIR (LEVEMIR) 100 UNIT/ML SYR SQ SCH (15:01)
--- NOTE | 2022-06-10 15:24 | P.PN ---
Subjective Progress Note Date: 06/10/22 Principal diagnosis: Bilateral lower extremity venous ulcers and cellulitis Patient is a 41 year old female with a past medical history significant for bilateral lower extremity venous stasis ulcers and cellulitis failing outpatient oral antibiotic therapy. On today's evaluation that is 06/10/2022, the patient remains to be afebrile, the patient bilateral lower extremity pain and drainage has decreased in intensity, patient denies chest pain shortness of breath or cough no abdominal pain or diarrhea Objective - Vital Signs Vital signs: Vital Signs Temp 98.2 F 06/10/22 08:00 Pulse 56 L 06/10/22 08:00 Resp 16 06/10/22 08:00 BP 116/56 06/10/22 08:00 Pulse Ox 95 06/10/22 08:00 FiO2 Intake & Output 06/09/22 06/10/22 06/10/22 18:59 06:59 18:59 Intake Total 960 118 Output Total 100 Balance 860 118 Weight 99.6 kg 100 kg Intake: Oral 960 118 Output: Urine 100 Other: Voiding Method Toilet Toilet # Voids 1 - Exam GENERAL DESCRIPTION: Middle-age female up in the chair in no distress RESPIRATORY SYSTEM: Unlabored breathing , decreased breath sounds at bases HEART: S1 S2 regular rate and rhythm , ABDOMEN: Soft , no tenderness EXTREMITIES: Bilateral lower extremity currently wrapped no drainage on the dressing - Labs CBC & Chem 7: 06/09/22 10:53 06/10/22 07:34 Labs: Abnormal Lab Results - Last 24 Hours (Table) 06/09/22 06/09/22 06/09/22 Range/Units 10:53 10:53 11:46 RDW 16.2 H (11.5-15.5) % Lymphocytes # 0.7 L (1.0-4.8) k/uL BUN 23 H (7-17) mg/dL Creatinine 1.23 H (0.52-1.04) mg/dL Glucose 116 H (74-99) mg/dL POC Glucose (mg/dL) 114 H (70-110) mg/dL Total Bilirubin 1.5 H (0.2-1.3) mg/dL C-Reactive Protein 2.5 H (<1.0) mg/dL Urine Appearance (Clear) Urine Protein (Negative) Ur Leukocyte Esterase (Negative) Ur Squamous Epith Cells (0-4) /hpf Urine Bacteria (None) /hpf Urine Mucus (None) /hpf 06/09/22 06/09/22 06/09/22 Range/Units 13:50 16:20 20:15 RDW (11.5-15.5) % Lymphocytes # (1.0-4.8) k/uL BUN (7-17) mg/dL Creatinine (0.52-1.04) mg/dL Glucose (74-99) mg/dL POC Glucose (mg/dL) 128 H 126 H (70-110) mg/dL Total Bilirubin (0.2-1.3) mg/dL C-Reactive Protein (<1.0) mg/dL Urine Appearance Cloudy H (Clear) Urine Protein 1+ H (Negative) Ur Leukocyte Esterase Small H (Negative) Ur Squamous Epith Cells 9 H (0-4) /hpf Urine Bacteria Occasional H (None) /hpf Urine Mucus Rare H (None) /hpf 06/10/22 Range/Units 07:34 RDW (11.5-15.5) % Lymphocytes # (1.0-4.8) k/uL BUN 31 H (7-17) mg/dL Creatinine 1.56 H (0.52-1.04) mg/dL Glucose 105 H (74-99) mg/dL POC Glucose (mg/dL) (70-110) mg/dL Total Bilirubin (0.2-1.3) mg/dL C-Reactive Protein (<1.0) mg/dL Urine Appearance (Clear) Urine Protein (Negative) Ur Leukocyte Esterase (Negative) Ur Squamous Epith Cells (0-4) /hpf Urine Bacteria (None) /hpf Urine Mucus (None) /hpf Microbiology - Last 24 Hours (Table) 06/08/22 15:08 Gram Stain - Preliminary Leg - Right Wound Culture - Preliminary Strep agalactiae - (group b) Gram Neg Bacilli Gram Neg Bacilli#2 06/08/22 13:55 Blood Culture - Preliminary Blood No Growth after 24 hours 06/08/22 13:40 Blood Culture - Preliminary Blood No Growth after 24 hours Assessment and Plan (1) Cellulitis of left leg Current Visit: No Status: Acute Code(s): L03.116 - CELLULITIS OF LEFT LOWER LIMB SNOMED Code(s): 307172144 (2) Cellulitis of right leg Current Visit: No Status: Acute Code(s): L03.115 - CELLULITIS OF RIGHT LOWER LIMB SNOMED Code(s): 635781610 Plan: 1patient with bilateral lower extremity venous stasis ulcer and cellulitis failing outpatient oral doxycycline therapy concern for possible drug-resistant pathogen questionably MRSA versus Pseudomonas. 2patient with multiple antibiotic allergies that would limit the number of antibiotics safe to use. 3-local wound care with a dry Aquacel dressing and Ryan wrap for compression 4-local cultures currently growing gram-negative and strep patient to continue with the Azactam and vancomycin with the discharge antibiotics on the basis of final culture more likely IV discuss with the child welfare caseworker Time with Patient: Less than 30
[2022-06-10 17:09] LABS: Glucose,Whole Blood 99 mg/dL (70-110)
[2022-06-10 20:07] LABS: Glucose,Whole Blood 197 mg/dL (70-110)
[2022-06-10] MEDS: MONTELUKAST 10 MG TAB PO SCH (22:19)
[2022-06-10] MEDS: ATORVASTATIN 80 MG TAB PO SCH (22:19)
[2022-06-11] MEDS: AZTREONAM 2 GM in SODIUM CHLORIDE 0.9% 100 ML IVPB SCH ×2 (03:30→12:42)
[2022-06-11] MEDS: HYDROmorphone 1 MG/ML 1 ML SYRINGE IVP PRN ×3 (04:13→15:37)
[2022-06-11] MEDS ORDERED: VANCOMYCIN TROUGH DUE 1 EACH MISC MISCELLANE ONE (05:00)
[2022-06-11 06:26] LABS: Glucose,Whole Blood 89 mg/dL (70-110)
[2022-06-11 06:31] LABS: Magnesium 1.9 mg/dL (1.6-2.3); Potassium 3.9 mmol/L (3.5-5.1)
[2022-06-11] MEDS: VANCOMYCIN 1,500 MG in SODIUM CHLORIDE 0.9% 500 ML 500 ML IVPB SCH (07:09)
[2022-06-11 10:11] VITALS: TEMP 98.3
[2022-06-11] MEDS: hydrALAZINE HCL 50 MG TAB PO SCH ×2 (10:11→15:36)
[2022-06-11] MEDS: POTASSIUM CHLORIDE ER 20 MEQ TAB.ER PO SCH (10:11)
[2022-06-11] MEDS: PANTOPRAZOLE 40 MG TABLET PO SCH (10:11)
[2022-06-11] MEDS: EZETIMIBE 10 MG TAB PO SCH (10:12)
[2022-06-11] MEDS: METOPROLOL SUCCINATE (ER) 100 MG TAB.ER.24H PO SCH (10:12)
[2022-06-11] MEDS: SPIRONOLACTONE 25 MG TAB PO SCH (10:12)
[2022-06-11] MEDS: CLOPIDOGREL 75 MG TAB PO SCH (10:12)
[2022-06-11] MEDS: FERROUS SULFATE 325 MG TAB PO SCH (10:12)
[2022-06-11] MEDS: TORSEMIDE 20 MG TAB PO SCH (10:12)
[2022-06-11] MEDS: cloNIDine HCL 0.1 MG TAB PO SCH ×2 (10:12→15:37)
[2022-06-11] MEDS: APIXABAN 2.5 MG TABLET PO SCH (10:13)
--- NOTE | 2022-06-11 12:23 | P.PN ---
Subjective Patient is seen for follow-up for acute kidney injury. She is currently being diuresed and Lasix was switched to Demadex yesterday. Serum creatinine has increased further to 1.7 from 1.5 yesterday. Patient reports good urine output Blood pressure has not been low Patient is maintained on vancomycin and level was 21 on 06/11/2022 Objective - Vital Signs Vital signs: Vital Signs Temp 98.3 F 06/11/22 08:00 Pulse 58 L 06/11/22 08:00 Resp 18 06/11/22 08:00 BP 149/75 06/11/22 08:00 Pulse Ox 98 06/11/22 08:00 FiO2 Intake & Output 06/10/22 06/11/22 06/11/22 18:59 06:59 18:59 Intake Total 118 400 Output Total 1800 Balance 118 -1400 Intake: Oral 118 400 Output: Urine 1800 Other: Voiding Method Toilet # Voids 3 - Exam Patient is awake, comfortable, no acute distress Examination of the heart S1 and S2 Examination of the lungs bilateral breath sounds are heard Abdomen is soft nontender Examination of lower extremities shows edema bilateral, legs are wrapped MANAGER SAP exam grossly intact - Labs CBC & Chem 7: 06/09/22 10:53 06/11/22 05:56 Labs: Abnormal Lab Results - Last 24 Hours (Table) 06/10/22 06/11/22 Range/Units 20:05 05:56 BUN 38 H (7-17) mg/dL Creatinine 1.73 H (0.52-1.04) mg/dL POC Glucose (mg/dL) 197 H (70-110) mg/dL Microbiology - Last 24 Hours (Table) 06/08/22 15:08 Gram Stain - Final Leg - Right Wound Culture - Final Strep agalactiae - (group b) Pseudomonas aeruginosa Proteus mirabilis 06/08/22 13:55 Blood Culture - Preliminary Blood No Growth after 48 hours 06/08/22 13:40 Blood Culture - Preliminary Blood No Growth after 48 hours Assessment and Plan Assessment: 1. Acute kidney injury mostly prerenal secondary to cardiorenal syndrome. Renal function worsening. Creatinine 1.7 today. No hydronephrosis noted on kidney ultrasound. Vancomycin will be discontinued 2. Lower extremity cellulitis on IV antibiotics. ID following. Culture is growing strep, Proteus and Pseudomonas 3. Diabetes mellitus. 4. Coronary disease status post cardiac stents. 5. Benign hypertension. Controlled. 6. Acute on chronic systolic CHF with ejection fraction of 40-45% with moderate to severe tricuspid regurgitatio Plan: DC vancomycin, discussed with ID Repeat labs in a.m. Continue Demadex Avoid nephrotoxic agents
[2022-06-11 12:39] LABS: Glucose,Whole Blood 84 mg/dL (70-110)
[2022-06-11 15:36] VITALS: BP 174/99; PULSE 82; RESP 18
--- NOTE | 2022-06-11 15:43 | P.PN ---
Subjective Progress Note Date: 06/11/22 Principal diagnosis: Bilateral lower extremity venous ulcers and cellulitis Patient is a 41 year old female with a past medical history significant for bilateral lower extremity venous stasis ulcers and cellulitis failing outpatient oral antibiotic therapy. On today's evaluation that is 06/11/2022, the patient continues to be afebrile, the patient bilateral lower extremity pain and drainage has decreased in intensity, patient denies chest pain shortness of breath or cough no abdominal pain or diarrhea, patient is feeling better and wants to go home Objective - Vital Signs Vital signs: Vital Signs Temp 98.3 F 06/11/22 08:00 Pulse 58 L 06/11/22 08:00 Resp 18 06/11/22 08:00 BP 149/75 06/11/22 08:00 Pulse Ox 98 06/11/22 08:00 FiO2 Intake & Output 06/10/22 06/11/22 06/11/22 18:59 06:59 18:59 Intake Total 118 400 Output Total 1800 Balance 118 -1400 Intake: Oral 118 400 Output: Urine 1800 Other: Voiding Method Toilet # Voids 3 - Exam GENERAL DESCRIPTION: Middle-age female up in the chair in no distress RESPIRATORY SYSTEM: Unlabored breathing , decreased breath sounds at bases HEART: S1 S2 regular rate and rhythm , ABDOMEN: Soft , no tenderness EXTREMITIES: Bilateral lower extremity swelling and redness has much improved - Labs CBC & Chem 7: 06/09/22 10:53 06/11/22 05:56 Labs: Abnormal Lab Results - Last 24 Hours (Table) 06/10/22 06/11/22 Range/Units 20:05 05:56 BUN 38 H (7-17) mg/dL Creatinine 1.73 H (0.52-1.04) mg/dL POC Glucose (mg/dL) 197 H (70-110) mg/dL Microbiology - Last 24 Hours (Table) 06/08/22 15:08 Gram Stain - Final Leg - Right Wound Culture - Final Strep agalactiae - (group b) Pseudomonas aeruginosa Proteus mirabilis 06/08/22 13:55 Blood Culture - Preliminary Blood No Growth after 48 hours 06/08/22 13:40 Blood Culture - Preliminary Blood No Growth after 48 hours Assessment and Plan (1) Cellulitis of left leg Current Visit: No Status: Acute Code(s): L03.116 - CELLULITIS OF LEFT LOWER LIMB SNOMED Code(s): 515896972 (2) Cellulitis of right leg Current Visit: No Status: Acute Code(s): L03.115 - CELLULITIS OF RIGHT LOWER LIMB SNOMED Code(s): 305598613 Plan: 1patient with bilateral lower extremity venous stasis ulcer and cellulitis failing outpatient oral doxycycline therapy concern for possible drug-resistant pathogen questionably MRSA versus Pseudomonas. 2patient with multiple antibiotic allergies that would limit the number of antibiotics safe to use. 3-local wound care advised with a dry Aquacel dressing and Ryan wrap for compression, the patient has been diffusing Aquacel silver dressing and wants to use her santyl 4-local cultures did grow pseudomonas aeruginosa Proteus and Streptococcus agalactiae patient to continue with Azactam because of her multiple antibiotic ALLERGIES and discontinue vancomycin Patient has been insisting on going home however at the same time cannot take the Keflex or Cipro which would've been advised she has been told in simple [place] to wait till the outpatient IV antibiotic arranged before discharge Time with Patient: Greater than 30
--- NOTE | 2022-06-11 21:38 | PN ---
PROGRESS NOTE DATE OF SERVICE: 06/10/2022 CHIEF COMPLAINT: Congestive heart failure, cardiomyopathy, uncontrolled hypertension, stasis disease with secondary infected cellulitis of the legs. HISTORY OF PRESENT ILLNESS: This lady's blood pressure is still high and she is still short of breath. She continues to complain of the pain in her legs. PHYSICAL EXAMINATION: CHEST: Breath sounds are fairly clear. CARDIAC: Normal. ABDOMEN: Protuberant and soft. EXTREMITIES: The lower legs are wrapped. IMPRESSION: 1. Acute on chronic congestive heart failure. 2. Cardiomyopathy. 3. Uncontrolled hypertension. 4. Lower extremity venous insufficiency with cellulitis and secondary bacterial infection. PLAN: Continue with efforts to further diurese her and control her hypertension while managing her infected legs. MMODL / IJN: [id number] /
--- NOTE | 2022-06-11 22:03 | DS ---
DISCHARGE SUMMARY CHIEF COMPLAINT: Shortness of breath. HISTORY OF PRESENT ILLNESS AND PHYSICAL EXAMINATION: Details of this lady's history and physical can be found in the initial workup. LABORATORY STUDIES: Can be found in the laboratory section of the chart. COURSE IN HOSPITAL: After admission, she was placed on bedrest on telemetry and diuresis was instituted. Her blood pressures were being brought down into a normal range. She was seen by Infectious Disease. She seemed to be doing well when suddenly she decided to sign out against medical advice because she "didn't like the infectious disease specialist plan for management of her legs." IMPRESSION: 1. Acute congestive heart failure. 2. Hypertensive urgency. 3. Chronic congestive heart failure. 4. Coronary artery disease. 5. Atherosclerotic cardiomyopathy. 6. Venous stasis disease of lower extremities with cellulitis and bacterial dermatitis. OPERATIONS: None. CONSULTATIONS: Infectious Disease. She signed out AMA. ASSESSMENT: MMRODNEY / CHERYL: [id number] /
[2022-06-12] MEDS ORDERED: VANCOMYCIN 1,500 MG in SODIUM CHLORIDE 0.9% 500 ML 500 ML IVPB SCH (21:00)
== END 2022-06-11 18:40 | disposition left against medical advice (07) | DRG 299 ==
LOC: EC 12:14 → 3SCARD 14:29
PROVIDERS: ADMIT Family Medicine; ATTEND Family Medicine
DX: I83.218 Varicose veins of right lower extremity with both ulcer of other part of lower extremity and inflammation (principal); I50.23 Acute on chronic systolic (congestive) heart failure; N17.9 Acute kidney failure, unspecified; L03.115 Cellulitis of right lower limb; L97.812 Non-pressure chronic ulcer of other part of right lower leg with fat layer exposed; L97.822 Non-pressure chronic ulcer of other part of left lower leg with fat layer exposed; L03.116 Cellulitis of left lower limb; Z16.29 Resistance to other single specified antibiotic; Z68.41 Body mass index [BMI] 40.0-44.9, adult; E11.40 Type 2 diabetes mellitus with diabetic neuropathy, unspecified; E11.628 Type 2 diabetes mellitus with other skin complications; I11.0 Hypertensive heart disease with heart failure; I83.228 Varicose veins of left lower extremity with both ulcer of other part of lower extremity and inflammation; I48.91 Unspecified atrial fibrillation; Z79.4 Long term (current) use of insulin; I08.1 Rheumatic disorders of both mitral and tricuspid valves; E66.9 Obesity, unspecified; B96.5 Pseudomonas (aeruginosa) (mallei) (pseudomallei) as the cause of diseases classified elsewhere; B96.4 Proteus (mirabilis) (morganii) as the cause of diseases classified elsewhere; I16.0 Hypertensive urgency; I25.10 Atherosclerotic heart disease of native coronary artery without angina pectoris; I25.5 Ischemic cardiomyopathy; T50.2X5A Adverse effect of carbonic-anhydrase inhibitors, benzothiadiazides and other diuretics, initial encounter; Z53.29 Procedure and treatment not carried out because of patient's decision for other reasons; B95.4 Other streptococcus as the cause of diseases classified elsewhere; I87.8 Other specified disorders of veins; L30.8 Other specified dermatitis; E78.5 Hyperlipidemia, unspecified; M79.89 Other specified soft tissue disorders; B96.89 Other specified bacterial agents as the cause of diseases classified elsewhere; Z96.651 Presence of right artificial knee joint; Z82.49 Family history of ischemic heart disease and other diseases of the circulatory system; Z82.0 Family history of epilepsy and other diseases of the nervous system; Z95.5 Presence of coronary angioplasty implant and graft; Z87.891 Personal history of nicotine dependence; I25.2 Old myocardial infarction; Z85.72 Personal history of non-Hodgkin lymphomas; Z86.711 Personal history of pulmonary embolism; Z92.3 Personal history of irradiation; Z88.5 Allergy status to narcotic agent; Z88.0 Allergy status to penicillin; Z88.1 Allergy status to other antibiotic agents; Z88.8 Allergy status to other drugs, medicaments and biological substances; Z91.041 Radiographic dye allergy status; Z79.899 Other long term (current) drug therapy; Z79.02 Long term (current) use of antithrombotics/antiplatelets; Z79.01 Long term (current) use of anticoagulants; Z79.84 Long term (current) use of oral hypoglycemic drugs; Z79.85 Long-term (current) use of injectable non-insulin antidiabetic drugs
CPT/HCPCS: 36415; 71046; 76770; 80048; 80053; 80202; 81001; 83605; 83735; 83880; 85025; 85610; 85730; 86140; 87040; 87070; 87077; 87186; 87205; 93005; 93306; 96365; 96366; 96375; 99284; 99285

== ENCOUNTER 2022-08-17 13:08 | Day surgery (SDC) | payer MEDICARE, OTHER ==
[2022-08-17 14:00] LABS: Mean Platelet Volume 7.9; Platelet Count 182 k/uL (150-450)
[2022-08-17 14:09] LABS: INR 1.2 (<1.2); Prothrombin Time 12.7 sec (9.0-12.0)
[2022-08-17] MEDS: ALPRAZolam 0.5 MG TAB PO STA ×2 (14:12→14:18)
[2022-08-17 14:17] VITALS: TEMP 97.6
[2022-08-17 15:00] VITALS: RESP 16
[2022-08-17 15:16] VITALS: BP 184/119; PULSE 111
--- NOTE | 2022-08-18 09:05 | US ---
Ultrasound-guided paracentesis. DATE OF EXAM: 08/17/2022 CLINICAL HISTORY: Ascites Patient presented to the radiology Department with the very high blood pressure and hypertension. The patient was sent to the emergency room for evaluation. Procedure was deferred. IMPRESSION: The third paracentesis due to hypertension.
== END 2022-08-17 15:45 ==
LOC: RADPROMAIN 13:08
PROVIDERS: ATTEND Internal Medicine
DX: Z53.8 Procedure and treatment not carried out for other reasons (principal); R18.8 Other ascites; I10 Essential (primary) hypertension
CPT/HCPCS: 36415; 76705; 82947; 85049; 85610

== ENCOUNTER 2022-08-17 15:39 | Observation (INO) | payer MEDICARE, OTHER ==
[2022-08-17] MEDS ORDERED: cloNIDine HCL 0.1 MG TAB PO STA (17:36)
[2022-08-17] MEDS ORDERED: hydrALAZINE HCL 50 MG TAB PO STA (17:36)
--- NOTE | 2022-08-17 17:44 | ED ---
General Adult HPI - General Chief complaint: Recheck/Abnormal Lab/Rx Stated complaint: abd pain Time Seen by Provider: 08/17/22 16:40 Source: patient Mode of arrival: wheelchair Limitations: no limitations - History of Present Illness Initial comments: This patient is a 41-year-old woman with, located medical history including diabetes, chronic lymphedema and progressive ascites, who states that she has been experiencing increasing ascites and edema for the past 2 months. Today she was scheduled to have outpatient paracentesis, but states that when she arrived for her appointment her blood pressure was elevated and they would not perform the procedure. They sent her here to have her blood pressure evaluated. The patient states that she is due for some of her blood pressure medicine. She is not having any symptoms, other than the chronic leg pain due to the edema which she states is a 3/10 that is actually very good for her. She denies pain or dyspnea. She states that she would like to have her blood pressure dressed and then go home and will have the paracentesis tomorrow. -: hour(s) Severity scale (1-10): 3 Quality: dull Consistency: constant Improves with: none Worsens with: none - Related Data Home Medications Medication Instructions Recorded Confirmed Ferrous Sulfate [Iron] 325 mg PO DAILY 07/11/18 08/17/22 Semaglutide [Ozempic] 0.5 mg SQ MO@2100 11/19/19 08/17/22 Insulin Glargine,Hum.rec.anlog 40 unit SQ HS 08/07/20 08/17/22 [Lantus Solostar Pen] Empagliflozin [Jardiance] 25 mg PO DAILY 07/29/21 08/17/22 Metoprolol Succinate (ER) [Toprol 100 mg PO DAILY 07/29/21 08/17/22 XL] Spironolactone 25 mg PO DAILY 07/29/21 08/17/22 hydrALAZINE HCL [Apresoline] 100 mg PO BID 07/29/21 08/17/22 Nitroglycerin 0.4MG/Hr Patch 1 patch TRANSDERM DAILY PRN 08/26/21 08/17/22 [Nitro-Dur 0.4MG/Hr Patch] ALPRAZolam [Xanax] 1 mg PO BID PRN 03/14/22 08/17/22 Albuterol Inhaler [Ventolin Hfa 1 - 2 puff INHALATION RT-QID PRN 03/14/22 08/17/22 Inhaler] Apixaban [Eliquis] 2.5 mg PO DIRECTED 03/14/22 08/17/22 Ondansetron [Zofran] 4 mg PO Q6H PRN 03/14/22 08/17/22 Torsemide [Demadex] 20 mg PO DAILY PRN 03/14/22 08/17/22 cloNIDine HCL [Catapres] 0.1 mg PO BID 03/14/22 08/17/22 Collagenase [Santyl Ointment] 1 applic TOPICAL DAILY 06/08/22 08/17/22 metOLazone [Zaroxolyn] 2.5 mg PO DAILY PRN 06/08/22 08/17/22 HYDROcodone/APAP 10-325MG [[place] 1 tab PO QID PRN 08/11/22 08/17/22 10-325] Montelukast [Singulair] 10 mg PO HS 08/11/22 08/17/22 Sacubitril/Valsartan [Entresto 24 1 tab PO BID 08/11/22 08/17/22 mg-26 mg Tablet] Clopidogrel [Plavix] 75 mg PO DIRECTED 08/17/22 08/17/22 Previous Rx's Medication Instructions Recorded Ezetimibe [Zetia] 10 mg PO DAILY #30 tab 02/02/21 Pantoprazole [Protonix] 40 mg PO BID #60 tab 02/02/21 Allergies Allergy/AdvReac Type Severity Reaction Status Date / Time azithromycin Allergy Anaphylaxis Verified 08/17/22 22:23 cephalexin [From Keflex] Allergy Rash/Hives Verified 08/17/22 22:23 clindamycin Allergy Anaphylaxis Verified 08/17/22 22:23 codeine Allergy Rash/Hives Verified 08/17/22 22:23 doxycycline Allergy Anaphylaxis Verified 08/17/22 22:23 Iodine and Iodide Containing Allergy Rash/Hives Verified 08/17/22 22:23 Produc levofloxacin [From Levaquin] Allergy Rash/Hives Verified 08/17/22 22:23 penicillin V Allergy Rash/Hives Verified 08/17/22 22:23 Penicillins Allergy Anaphylaxis Verified 08/17/22 22:23 silver Allergy Rash/Hives Verified 08/17/22 22:23 sulfamethoxazole Allergy Rash/Hives Verified 08/17/22 22:23 [From Bactrim] tramadol Allergy Rash/Hives Verified 08/17/22 22:23 trimethoprim [From Bactrim] Allergy Rash/Hives Verified 08/17/22 22:23 vancomycin Allergy Rash/Hives Verified 08/17/22 22:23 zinc Allergy Rash/Hives Verified 08/17/22 22:23 Review of Systems ROS Statement: Those systems with pertinent positive or pertinent negative responses have been documented in the HPI. ROS Other: All systems not noted in ROS Statement are negative. Constitutional: Denies: fever, chills, weakness Respiratory: Denies: cough, dyspnea Cardiovascular: Reports: edema (Chronic). Denies: chest pain, palpitations Gastrointestinal: Reports: abdominal pain (Chronic). Denies: vomiting, diarrhea, constipation Genitourinary: Denies: dysuria, hematuria Musculoskeletal: Denies: back pain Skin: Reports: lesions (Chronic stasis ulcers) Neurological: Denies: headache, weakness Past Medical History Past Medical History: Atrial Fibrillation, Asthma, Coronary Artery Disease (CAD), Cancer, Chest Pain / Angina, Heart Failure, Diabetes Mellitus, GERD/Reflux, Hyperlipidemia, Hypertension, Myocardial Infarction (HI), Pulmonary Embolus (PE), Renal Disease, Respiratory Disorder Additional Past Medical History / Comment(s): CA- lymphoma Last Myocardial Infarction Date:: 04/2019 History of Any Multi-Drug Resistant Organisms: MRSA Date of last positivie culture/infection: 10/2021 MDRO Source:: dog bite Past Surgical History: Section, Heart Catheterization With Stent, Joint Replacement, Tonsillectomy, Tubal Ligation Additional Past Surgical History / Comment(s): Partial R knee replacement, PCI/stents, surgery for PE/radiation. 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 Date of Last Stent Placement:: 05/08/19 Past Psychological History: Anxiety, Bipolar, Depression, No Psychological Hx Reported, Schizophrenia Smoking Status: Former smoker Past Alcohol Use History: None Reported Past Drug Use History: None Reported - Past Family History Father Family Medical History: Coronary Artery Disease (CAD), Hyperlipidemia, Hypertension Additional Family Medical History / Comment(s): pins in knee, heart stents x 4. Father is Mother Family Medical History: Coronary Artery Disease (CAD), Dementia, Diabetes Mellitus, Musculoskeletal Disorder, Renal Disease Additional Family Medical History / Comment(s): Parkinson's, stents in heart, neuropathy. General Exam Limitations: no limitations General appearance: alert, in no apparent distress Head exam: Present: atraumatic, normocephalic Eye exam: Present: normal appearance. Absent: scleral icterus, conjunctival injection Neck exam: Present: normal inspection Respiratory exam: Present: normal lung sounds bilaterally. Absent: respiratory distress, wheezes, rales, rhonchi, stridor Cardiovascular Exam: Present: regular rate, normal rhythm, systolic murmur. Absent: diastolic murmur, rubs, gallop GI/Abdominal exam: Present: soft. Absent: distended, tenderness, guarding, rebound, rigid, mass Extremities exam: Present: normal inspection, normal capillary refill, pedal edema (Chronic edema bilaterally). Absent: calf tenderness Back exam: Present: normal inspection. Absent: CVA tenderness (R), CVA tenderness (L) Neurological exam: Present: alert Skin exam: Present: warm, dry, intact, normal color. Absent: rash Course Vital Signs 08/17/22 08/17/22 08/17/22 15:41 17:53 18:32 Temperature 98.5 F Pulse Rate 111 H Respiratory 24 18 Rate Blood Pressure 179/134 191/118 175/90 O2 Sat by Pulse 98 Oximetry 08/17/22 08/17/22 08/17/22 20:00 21:00 22:00 Temperature Pulse Rate 103 H Respiratory 18 Rate Blood Pressure 182/113 171/122 195/122 O2 Sat by Pulse 100 Oximetry 08/17/22 23:31 Temperature Pulse Rate Respiratory Rate Blood Pressure 167/115 O2 Sat by Pulse Oximetry Medical Decision Making - Medical Decision Making This patient is a 41-year-old woman who is here from outpatient procedure to have evaluation for hypertension. The patient does have a long-standing history of hypertension. The patient is given doses of her medication and did have improvement in her blood pressure. She is asymptomatic related to that. I then went discussed and patient states she was told she would need to be admitted overnight so that the procedure could be accomplished first thing in the [facility]. I did attempt to reach Dr. Dena Jacques to confirm this plan but he was not on- call. Discussed case with patient's primary physician who will admit to observation in anticipation of having paracentesis in the morning. Disposition Clinical Impression: Hypertension Disposition: ADMITTED IP TO THIS HOSP Condition: Good Is patient prescribed a controlled substance at d/c from ED?: No
[2022-08-17] MEDS ORDERED: NALOXONE 0.4 MG/ML 1 ML VIAL IV PRN (22:22)
[2022-08-17] MEDS ORDERED: hydrALAZINE HCL 50 MG TAB PO SCH (22:30)
[2022-08-17] MEDS: cloNIDine HCL 0.1 MG TAB PO SCH (22:38)
[2022-08-18] MEDS ORDERED: TORSEMIDE 20 MG TAB PO PRN (02:18)
[2022-08-18] MEDS ORDERED: ALBUTEROL NEBULIZED 2.5 MG/3 ML INHALATION PRN (02:18)
[2022-08-18] MEDS ORDERED: metOLazone 2.5 MG TAB PO PRN (02:18)
[2022-08-18] MEDS ORDERED: APIXABAN 2.5 MG TABLET PO SCH (02:30)
[2022-08-18] MEDS ORDERED: CLOPIDOGREL 75 MG TAB PO SCH (02:30)
[2022-08-18] MEDS: HYDROcodone/APAP 10-325MG 1 EACH TAB PO PRN ×4 (02:42→23:52)
[2022-08-18] MEDS: hydrALAZINE HCL 50 MG TAB PO SCH ×4 (02:42→23:16)
[2022-08-18 06:08] LABS: Glucose,Whole Blood 119 mg/dL (70-110)
[2022-08-18] MEDS: PANTOPRAZOLE 40 MG TABLET PO SCH ×2 (06:23→17:37)
[2022-08-18] MEDS: cloNIDine HCL 0.1 MG TAB PO SCH ×3 (06:23→23:16)
[2022-08-18] MEDS: ONDANSETRON 4 MG TAB PO PRN (06:27)
[2022-08-18] MEDS: FERROUS SULFATE 325 MG TAB PO SCH (08:07)
[2022-08-18] MEDS: METOPROLOL SUCCINATE (ER) 100 MG TAB.ER.24H PO SCH (08:07)
[2022-08-18] MEDS: SPIRONOLACTONE 25 MG TAB PO SCH (08:07)
[2022-08-18] MEDS: EZETIMIBE 10 MG TAB PO SCH (08:07)
[2022-08-18] MEDS: SACUBITRIL/VALSARTAN 24 MG-26 MG TABLET PO SCH ×2 (08:07→20:44)
[2022-08-18] MEDS: DAPAGLIFLOZIN PROPANEDIOL 10 MG TABLET PO SCH (08:08)
[2022-08-18] MEDS ORDERED: COLLAGENASE 250 UNIT/GM OINTMENT 30 GM TUBE TOPICAL SCH (09:00)
[2022-08-18] MEDS ORDERED: HEPARIN SODIUM,PORCINE/PF 5,000 UNIT/0.5 ML SYRINGE SQ SCH (09:00)
--- NOTE | 2022-08-18 11:15 | US ---
Ultrasound-guided paracentesis. DATE OF EXAM: 08/18/2022 CLINICAL HISTORY: Ascites The procedure was discussed with the patient. The risks, complications, benefits, and alternatives we re discussed and any questions were answered. Informed consent was obtained. The patient was placed s upine on the ultrasound table and prepped and draped in the usual sterile fashion. All elements of maximal barrier technique were utilized. Under ultrasound guidance, access into the right lower quadrant was obtained, via the paracentesis catheter system and direct ultrasound guidanc e. Approximately 10.4 liters of straw-colored fluid was removed. The patient was stable throughout the p rocedure and remained stable upon discharge from Department of Radiology. IMPRESSION: Successful paracentesis under ultrasound guidance.
[2022-08-18 11:44] LABS: Glucose,Whole Blood 106 mg/dL (70-110)
[2022-08-18] MEDS: ALPRAZolam 1 MG TAB PO PRN ×2 (11:58→23:53)
[2022-08-18 16:33] LABS: Glucose,Whole Blood 136 mg/dL (70-110)
[2022-08-18 20:16] LABS: Glucose,Whole Blood 114 mg/dL (70-110)
[2022-08-18] MEDS: INSULIN DETEMIR (LEVEMIR) 100 UNIT/ML SYR SQ SCH (20:43)
[2022-08-18] MEDS: MONTELUKAST 10 MG TAB PO SCH (20:44)
--- NOTE | 2022-08-19 04:16 | PN ---
PROGRESS NOTE DATE OF SERVICE: 08/18/2022 CHIEF COMPLAINT: Uncontrolled hypertension. HISTORY OF PRESENT ILLNESS: This lady is doing a little bit better. She denies any chest pain or shortness of breath. PHYSICAL EXAMINATION: CHEST: Demonstrated to have poor breath sounds, particularly at the bases posteriorly. CARDIAC: Normal. IMPRESSION: 1. Uncontrolled hypertension. 2. Cardiomyopathy. 3. Congestive heart failure. PLAN: Continue to stabilize blood pressure and increase activity. MMODL / IJN: [id number] /
--- NOTE | 2022-08-19 04:31 | HP ---
HISTORY AND PHYSICAL CHIEF COMPLAINT: Hypertension and ascites. HISTORY OF PRESENT ILLNESS: This is another admission for this seriously ill 41-year-old female who has cardiomyopathy, chronic congestive heart failure, anasarca and lower extremity edema with cellulitis and stasis ulcers. She always states that her blood pressure is normal at home, but whenever she is in the office, it is extremely high. Apparently, she went for a paracentesis and her blood pressure was found to be exceedingly high and she was sent to the emergency room. She denies any focal neurologic deficits, change in vision, scotomata, headaches, nausea, vomiting, chest pain, etc. PAST MEDICAL HISTORY, FAMILY HISTORY, AND PERSONAL AND SOCIAL HISTORIES: All essentially unchanged from her recent admitting and discharge summaries. She is on multiple medications. She has been referred [facility] in the past where they determined that she was a candidate for heart transplant. She is fairly noncompliant and will run around looking for physicians or institutions take care of her when she disagrees with any treatment that she is currently receiving. She has been getting wound care in [place]. She has been to a environmental field technician in [place]. She does not go back to [facility]. Remainder of the history is essentially unremarkable. PHYSICAL EXAMINATION: VITAL SIGNS: Blood pressure is 182/105 with a pulse of 85, respirations of 32, and she is afebrile. GENERAL: She appeared to be overweight. HEENT: Face was flushed. She was slightly edematous. NECK: Veins could not be assessed. CHEST: Demonstrated scattered rales. CARDIAC: Demonstrated normal sinus rhythm with no murmurs or extra sounds. ABDOMEN: Protuberant, soft, and nontender. EXTREMITIES: Demonstrated the edema of the lower extremities which were wrapped with Ryan wraps and the knee on down. NEUROLOGICAL: Intact. DIAGNOSES: She was admitted to the hospital with diagnoses, 1. Uncontrolled hypertension. 2. Cardiomyopathy. 3. Chronic diastolic heart failure. 4. Generalized anasarca and ascites. 5. Stasis disease of lower extremities with cellulitis and ulcers. PLAN: 1. Bed rest. 2. IV fluids. 3. Control of hypertension. 4. Diuresis. MMODL / IJN: [id number] /
[2022-08-19 05:54] LABS: Glucose,Whole Blood 88 mg/dL (70-110)
[2022-08-19] MEDS: HYDROcodone/APAP 10-325MG 1 EACH TAB PO PRN ×3 (05:57→22:42)
[2022-08-19] MEDS: cloNIDine HCL 0.1 MG TAB PO SCH ×3 (05:58→22:01)
[2022-08-19] MEDS: PANTOPRAZOLE 40 MG TABLET PO SCH ×2 (05:58→16:31)
[2022-08-19 08:05] LABS: Anisocytosis Slight; Basophils % (A) 0 %; Eosinophils # (A) 0.1 k/uL (0-0.7); Eosinophils % (A) 3 %; HCT 37.4 % (34.0-46.0); HGB 11.4 gm/dL (11.4-16.0); Hypochromasia Moderate; Lymphocytes # (A) 0.9 k/uL (1.0-4.8); Lymphocytes % (A) 18 %; MCH 25.7 pg (25.0-35.0); MCHC 30.4 g/dL (31.0-37.0); MCV 84.6 fL (80.0-100.0); Mean Platelet Volume 7.6; Monocytes # (A) 0.3 k/uL (0-1.0); Monocytes % (A) 7 %; Neutrophils # (A) 3.3 k/uL (1.3-7.7); Neutrophils % (A) 68 %; Platelet Count 198 k/uL (150-450); RBC 4.42 m/uL (3.80-5.40); RDW 18.4 % (11.5-15.5); WBC 4.8 k/uL (3.8-10.6)
[2022-08-19 08:26] LABS: Calcium 8.2 mg/dL (8.4-10.2); Potassium 4.5 mmol/L (3.5-5.1)
[2022-08-19] MEDS: EZETIMIBE 10 MG TAB PO SCH (09:31)
[2022-08-19] MEDS: SACUBITRIL/VALSARTAN 24 MG-26 MG TABLET PO SCH ×2 (09:31→19:43)
[2022-08-19] MEDS: METOPROLOL SUCCINATE (ER) 100 MG TAB.ER.24H PO SCH (09:31)
[2022-08-19] MEDS: DAPAGLIFLOZIN PROPANEDIOL 10 MG TABLET PO SCH (09:32)
[2022-08-19] MEDS: FERROUS SULFATE 325 MG TAB PO SCH (09:32)
[2022-08-19 10:46] LABS: Glucose, BF Source Ascites; Glucose, Body Fluid 120 mg/dL; T. Protein, Body Fluid Source Ascites; Total Protein, Body Fluid 4180 mg/dL
[2022-08-19 11:43] LABS: Glucose,Whole Blood 104 mg/dL (70-110)
[2022-08-19] MEDS: hydrALAZINE HCL 50 MG TAB PO SCH (11:53)
[2022-08-19] MEDS: SPIRONOLACTONE 25 MG TAB PO SCH (11:55)
[2022-08-19] MEDS: ONDANSETRON 4 MG TAB PO PRN (12:49)
[2022-08-19 14:14] LABS: Appearance,BF Clear
[2022-08-19 16:27] LABS: Glucose,Whole Blood 110 mg/dL (70-110)
[2022-08-19 19:43] VITALS: TEMP 98.1
[2022-08-19] MEDS: MONTELUKAST 10 MG TAB PO SCH (19:43)
[2022-08-19 20:35] LABS: Glucose,Whole Blood 127 mg/dL (70-110)
[2022-08-19] MEDS: INSULIN DETEMIR (LEVEMIR) 100 UNIT/ML SYR SQ SCH (21:09)
[2022-08-19] MEDS: ALPRAZolam 1 MG TAB PO PRN (22:42)
[2022-08-20] MEDS: PANTOPRAZOLE 40 MG TABLET PO SCH (05:29)
[2022-08-20] MEDS: HYDROcodone/APAP 10-325MG 1 EACH TAB PO PRN ×2 (05:29→12:57)
[2022-08-20] MEDS: cloNIDine HCL 0.1 MG TAB PO SCH ×2 (05:30→15:46)
[2022-08-20 06:10] LABS: Glucose,Whole Blood 96 mg/dL (70-110)
[2022-08-20 08:37] VITALS: PULSE 69; RESP 16
[2022-08-20] MEDS: EZETIMIBE 10 MG TAB PO SCH (08:40)
[2022-08-20] MEDS: DAPAGLIFLOZIN PROPANEDIOL 10 MG TABLET PO SCH (08:41)
[2022-08-20] MEDS: SACUBITRIL/VALSARTAN 24 MG-26 MG TABLET PO SCH (08:41)
[2022-08-20] MEDS: METOPROLOL SUCCINATE (ER) 100 MG TAB.ER.24H PO SCH (08:41)
[2022-08-20] MEDS: SPIRONOLACTONE 25 MG TAB PO SCH (08:41)
[2022-08-20] MEDS: FERROUS SULFATE 325 MG TAB PO SCH (08:41)
[2022-08-20 11:24] VITALS: BP 121/63
[2022-08-20 12:18] LABS: Glucose,Whole Blood 166 mg/dL (70-110)
--- NOTE | 2022-08-21 14:49 | P.DS ---
Providers Date of admission: 08/17/22 22:22 Expected date of discharge: 08/20/22 Attending physician: Odell Sena Primary care physician: Odell Sena Hospital Course: Patient was admitted to for ascites underwent thoracentesis removal of 10 L of fluid was discharged on a 08/21/2022. For further details of hospital physician and medical problems please refer to progress note of H&P from Dr. Sena Patient Condition at Discharge: Good Plan - Discharge Summary Discharge Rx Participant: No New Discharge Prescriptions: No Action Ferrous Sulfate [Iron] 325 mg PO DAILY Semaglutide [Ozempic] 0.5 mg SQ MO@2100 Insulin Glargine,Hum.rec.anlog [Lantus Solostar Pen] 40 unit SQ HS Pantoprazole [Protonix] 40 mg PO BID #60 tab Spironolactone 25 mg PO DAILY Nitroglycerin 0.4MG/Hr Patch [Nitro-Dur 0.4MG/Hr Patch] 1 patch TRANSDERM DAILY PRN PRN Reason: Chest Pain Albuterol Inhaler [Ventolin Hfa Inhaler] 1 - 2 puff INHALATION RT-QID PRN PRN Reason: Shortness Of Breath ALPRAZolam [Xanax] 1 mg PO BID PRN PRN Reason: Anxiety Torsemide [Demadex] 20 mg PO DAILY PRN PRN Reason: Edema Collagenase [Santyl Ointment] 1 applic TOPICAL DAILY HYDROcodone/APAP 10-325MG [[place] 10-325] 1 tab PO QID PRN PRN Reason: Pain Montelukast [Singulair] 10 mg PO HS Ezetimibe [Zetia] 10 mg PO DAILY #30 tab Metoprolol Succinate (ER) [Toprol XL] 100 mg PO DAILY Empagliflozin [Jardiance] 25 mg PO DAILY Apixaban [Eliquis] 2.5 mg PO DIRECTED cloNIDine HCL [Catapres] 0.1 mg PO BID Ondansetron [Zofran] 4 mg PO Q6H PRN PRN Reason: Nausea metOLazone [Zaroxolyn] 2.5 mg PO DAILY PRN PRN Reason: Edema Sacubitril/Valsartan [Entresto 24 mg-26 mg Tablet] 1 tab PO BID Clopidogrel [Plavix] 75 mg PO DIRECTED Discharge Medication List Ferrous Sulfate [Iron] 325 mg PO DAILY 07/11/18 [History] Semaglutide [Ozempic] 0.5 mg SQ MO@2100 11/19/19 [History] Insulin Glargine,Hum.rec.anlog [Lantus Solostar Pen] 40 unit SQ HS 08/07/20 [History] Ezetimibe [Zetia] 10 mg PO DAILY #30 tab 02/02/21 [Rx] Pantoprazole [Protonix] 40 mg PO BID #60 tab 02/02/21 [Rx] Empagliflozin [Jardiance] 25 mg PO DAILY 07/29/21 [History] Metoprolol Succinate (ER) [Toprol XL] 100 mg PO DAILY 07/29/21 [History] Spironolactone 25 mg PO DAILY 07/29/21 [History] Nitroglycerin 0.4MG/Hr Patch [Nitro-Dur 0.4MG/Hr Patch] 1 patch TRANSDERM DAILY PRN 08/26/21 [History] ALPRAZolam [Xanax] 1 mg PO BID PRN 03/14/22 [History] Albuterol Inhaler [Ventolin Hfa Inhaler] 1 - 2 puff INHALATION RT-QID PRN 03/14/22 [History] Apixaban [Eliquis] 2.5 mg PO DIRECTED 03/14/22 [History] Ondansetron [Zofran] 4 mg PO Q6H PRN 03/14/22 [History] Torsemide [Demadex] 20 mg PO DAILY PRN 03/14/22 [History] cloNIDine HCL [Catapres] 0.1 mg PO BID 03/14/22 [History] Collagenase [Santyl Ointment] 1 applic TOPICAL DAILY 06/08/22 [History] metOLazone [Zaroxolyn] 2.5 mg PO DAILY PRN 06/08/22 [History] HYDROcodone/APAP 10-325MG [[place] 10-325] 1 tab PO QID PRN 08/11/22 [History] Montelukast [Singulair] 10 mg PO HS 08/11/22 [History] Sacubitril/Valsartan [Entresto 24 mg-26 mg Tablet] 1 tab PO BID 08/11/22 [History] Clopidogrel [Plavix] 75 mg PO DIRECTED 08/17/22 [History] Follow up Appointment(s)/Referral(s): Odell Sena MD [Primary Care Provider] - 1-2 days (Please call to schedule appointment) Patient Instructions/Handouts: Ascites (DC), Hypertension (ED) Discharge Disposition: HOME SELF-CARE
[2022-08-22] MEDS ORDERED: NON FORMULARY DRUG (Semaglutide [Ozempic] 0.25 MG/0.2 ML Pen.Injctr) SQ SCH (21:00)
--- NOTE | 2022-08-24 01:25 | PN ---
PROGRESS NOTE DATE OF SERVICE: 08/19/2022 CHIEF COMPLAINT: Uncontrolled hypertension and ascites. HISTORY OF PRESENT ILLNESS: This lady is feeling a little bit better. Her blood pressure has definitely come down with Apresoline, which is usually the case. She is not having any shortness of breath, chest pain, etc. PHYSICAL EXAMINATION: CHEST: Fairly clear. CARDIAC: Unremarkable and unchanged. ABDOMEN: Distended and it is nontender. EXTREMITIES: Edematous and lower extremities are wrapped. IMPRESSION: 1. Hypertensive urgency. 2. Atherosclerotic cardiomyopathy. 3. Congestive heart failure with reduced ejection fraction. 4. History of renal failure. 5. Intraabdominal ascites, etiology unknown. 6. Lower extremity venous stasis disease with stasis dermatitis and ulcers. PLAN: Progress activity and continue to monitor her blood pressure. MMODL / IJN: [id number] /
== END 2022-08-20 16:37 | disposition home or self-care (01) ==
LOC: EC 15:39 → 3SCARD 22:22
PROVIDERS: ADMIT Family Medicine; ATTEND Family Medicine
DX: R18.8 Other ascites (principal); I89.0 Lymphedema, not elsewhere classified; L03.119 Cellulitis of unspecified part of limb; I42.9 Cardiomyopathy, unspecified; I11.0 Hypertensive heart disease with heart failure; I50.9 Heart failure, unspecified; Z79.01 Long term (current) use of anticoagulants; G89.29 Other chronic pain; M79.606 Pain in leg, unspecified; Z91.048 Other nonmedicinal substance allergy status; Z79.84 Long term (current) use of oral hypoglycemic drugs; Z79.02 Long term (current) use of antithrombotics/antiplatelets; Z79.899 Other long term (current) drug therapy; Z88.1 Allergy status to other antibiotic agents; Z88.5 Allergy status to narcotic agent; Z88.0 Allergy status to penicillin; Z91.09 Other allergy status, other than to drugs and biological substances; Z88.2 Allergy status to sulfonamides
CPT/HCPCS: 99284; 80048; 89050; 85025; 82945; 84157; 49083; G0378 ×4; 88108; 88305; 88341; 88342

== ENCOUNTER 2022-09-27 12:44 | Observation (INO) | payer MEDICARE, OTHER ==
--- NOTE | 2022-09-27 13:33 | ED ---
General Adult HPI - General Chief complaint: Shortness of Breath Stated complaint: abd effusion Time Seen by Provider: 09/27/22 13:00 Source: patient, EMS, RN notes reviewed, old records reviewed Mode of arrival: EMS Limitations: no limitations - History of Present Illness Initial comments: This is a 41-year-old female presents emergency Department with a past medical history significant for ascites. Patient states she's been diagnosed with lymphoma and she sees Dr. Arevalo per . also set up paracentesis today for 11:00 which she states she couldn't make it and at 12:30 called EMS because she couldn't breathe because her belly was so big. Patient has any fever chills per patient denies any vomiting or diarrhea. Patient states she was nauseous but EMS gave her Zofran and it helped. Patient denies any chest pain patient is a palpation. Patient states she has chronic leg swelling is no different than normal. - Related Data Home Medications Medication Instructions Recorded Confirmed Ferrous Sulfate [Iron] 325 mg PO DAILY 07/11/18 09/15/22 Semaglutide [Ozempic] 0.5 mg SQ MO@2100 11/19/19 09/15/22 Insulin Glargine,Hum.rec.anlog 40 unit SQ HS 08/07/20 09/15/22 [Lantus Solostar Pen] Empagliflozin [Jardiance] 25 mg PO DAILY 07/29/21 09/15/22 Metoprolol Succinate (ER) [Toprol 100 mg PO DAILY 07/29/21 09/15/22 XL] Spironolactone 25 mg PO DAILY 07/29/21 09/15/22 Nitroglycerin 0.4MG/Hr Patch 1 patch TRANSDERM DAILY PRN 08/26/21 09/15/22 [Nitro-Dur 0.4MG/Hr Patch] ALPRAZolam [Xanax] 1 mg PO BID PRN 03/14/22 09/15/22 Albuterol Inhaler [Ventolin Hfa 1 - 2 puff INHALATION RT-QID PRN 03/14/22 09/15/22 Inhaler] Apixaban [Eliquis] 2.5 mg PO DIRECTED 03/14/22 09/15/22 Ondansetron [Zofran] 4 mg PO Q6H PRN 03/14/22 09/15/22 Torsemide [Demadex] 20 mg PO DAILY PRN 03/14/22 09/15/22 cloNIDine HCL [Catapres] 0.1 mg PO BID 03/14/22 09/15/22 Collagenase [Santyl Ointment] 1 applic TOPICAL DAILY 06/08/22 09/15/22 metOLazone [Zaroxolyn] 2.5 mg PO DAILY PRN 06/08/22 09/15/22 HYDROcodone/APAP 10-325MG [Martin 1 tab PO QID PRN 08/11/22 09/15/22 10-325] Montelukast [Singulair] 10 mg PO HS 08/11/22 09/15/22 Sacubitril/Valsartan [Entresto 24 1 tab PO BID 08/11/22 09/15/22 mg-26 mg Tablet] Clopidogrel [Plavix] 75 mg PO DIRECTED 08/17/22 09/15/22 Previous Rx's Medication Instructions Recorded Ezetimibe [Zetia] 10 mg PO DAILY #30 tab 02/02/21 Pantoprazole [Protonix] 40 mg PO BID #60 tab 02/02/21 Allergies Allergy/AdvReac Type Severity Reaction Status Date / Time azithromycin Allergy Anaphylaxis Verified 09/15/22 15:11 cephalexin [From Keflex] Allergy Rash/Hives Verified 09/15/22 15:11 clindamycin Allergy Anaphylaxis Verified 09/15/22 15:11 codeine Allergy Rash/Hives Verified 09/15/22 15:11 doxycycline Allergy Anaphylaxis Verified 09/15/22 15:11 Iodine and Iodide Containing Allergy Rash/Hives Verified 09/15/22 15:11 Produc levofloxacin [From Levaquin] Allergy Rash/Hives Verified 09/15/22 15:11 penicillin V Allergy Rash/Hives Verified 09/15/22 15:11 Penicillins Allergy Anaphylaxis Verified 09/15/22 15:11 silver Allergy Rash/Hives Verified 09/15/22 15:11 sulfamethoxazole Allergy Rash/Hives Verified 09/15/22 15:11 [From Bactrim] tramadol Allergy Rash/Hives Verified 09/15/22 15:11 trimethoprim [From Bactrim] Allergy Rash/Hives Verified 09/15/22 15:11 vancomycin Allergy Rash/Hives Verified 09/15/22 15:11 zinc Allergy Rash/Hives Verified 09/15/22 15:11 Review of Systems ROS Statement: Those systems with pertinent positive or pertinent negative responses have been documented in the HPI. ROS Other: All systems not noted in ROS Statement are negative. Past Medical History Past Medical History: Atrial Fibrillation, Asthma, Coronary Artery Disease (CAD), Cancer, Chest Pain / Angina, Heart Failure, Diabetes Mellitus, GERD/Reflux, Hyperlipidemia, Hypertension, Myocardial Infarction (AL), Pulmonary Embolus (PE), Renal Disease, Respiratory Disorder Additional Past Medical History / Comment(s): CA- lymphoma, childhood leukemia Last Myocardial Infarction Date:: 04/2019 History of Any Multi-Drug Resistant Organisms: MRSA Date of last positivie culture/infection: 10/2021 MDRO Source:: dog bite Past Surgical History: Section, Heart Catheterization With Stent, Joint Replacement, Tonsillectomy, Tubal Ligation Additional Past Surgical History / Comment(s): Partial R knee replacement, PCI/stents, surgery for PE/radiation. 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 Date of Last Stent Placement:: 05/08/19 Past Psychological History: Anxiety, Bipolar, Depression, Schizophrenia Additional Psychological History / Comment(s): Pt resides with her fiancee and 15 yr old son. She does not drive, her fiancee drives, otherwise pt is independent. Smoking Status: Former smoker Past Alcohol Use History: None Reported Additional Past Alcohol Use History / Comment(s): Pt smoked for a few months in 2010. Past Drug Use History: None Reported Additional Drug Use History / Comment(s): stopped smoking in 2010; only smoked for 4-5 months. - Past Family History Father Family Medical History: Coronary Artery Disease (CAD), Hyperlipidemia, Hypertension Additional Family Medical History / Comment(s): pins in knee, heart stents x 4. Father is Mother Family Medical History: Coronary Artery Disease (CAD), Dementia, Diabetes Mellitus, Musculoskeletal Disorder, Renal Disease Additional Family Medical History / Comment(s): Parkinson's, stents in heart, neuropathy. General Exam - General Exam Comments Initial Comments: GENERAL: Patient is well-developed and well-nourished. Patient is nontoxic and well-hydr ated and is in mild distress. ENT: Neck is soft and supple. No significant lymphadenopathy is noted. Oropharynx is clear. Moist mucous membranes. Neck has full range of motion without eliciting any pain. EYES: The sclera were anicteric and conjunctiva were pink and moist. Extraocular movements were intact and pupils were equal round and reactive to light. Eyelids were unremarkable. PULMONARY: Unlabored respirations. Good breath sounds bilaterally. No audible rales rhonchi or wheezing was noted. CARDIOVASCULAR: There is a regular rate and rhythm without any murmurs gallops or rubs. ABDOMEN: Patient has a very distended abdomen consistent with ascites SKIN: Skin is clear with no lesions or rashes and otherwise unremarkable. NEUROLOGIC: Patient is alert and oriented x3. Cranial nerves II through XII are grossly intact. Motor and sensory are also intact. Normal speech, volume and content. Symmetrical smile. MUSCULOSKELETAL: Normal extremities with adequate strength and full range of motion. No lower extremity swelling or edema. No calf tenderness. LYMPHATICS: No significant lymphadenopathy is noted PSYCHIATRIC: Normal psychiatric evaluation. Limitations: no limitations Course Vital Signs 09/27/22 09/27/22 09/27/22 12:50 12:55 14:55 Temperature 97.6 F Pulse Rate 92 96 80 Respiratory 22 20 20 Rate Blood Pressure 192/102 194/117 179/106 O2 Sat by Pulse 99 95 95 Oximetry 09/27/22 09/27/22 09/27/22 15:39 15:50 16:00 Temperature Pulse Rate 104 H 108 H 107 H Respiratory 20 24 18 Rate Blood Pressure 187/126 169/97 O2 Sat by Pulse 98 98 Oximetry Medical Decision Making - Medical Decision Making Was pt. sent in by a medical professional or institution (, PA, COURT LIAISON, urgent care, hospital, or custodial...) When possible be specific @ -No Did you speak to anyone other than the patient for history (EMS, parent, family, police, friend...)? What history was obtained from this source @ -No Did you review nursing and triage notes (agree or disagree)? Why? @ -I reviewed and agree with nursing and triage notes Were old charts reviewed (outside hosp., previous admission, EMS record, old EKG, old radiological studies, urgent care reports/EKG's, custodial records)? Report findings @ -I reviewed prior charts prior labwork on this patient. Differential Diagnosis (chest pain, altered mental status, abdominal pain women, abdominal pain men, vaginal bleeding, weakness, fever, dyspnea, syncope, headache, dizziness, GI bleed, back pain, seizure, CVA, palpatations, mental health, musculoskeletal)? @ -Differential Dyspnea: Coronary syndrome, arrhythmia, tamponade, asthma, COPD, pulmonary embolism, pneumonia, pneumothorax, pulmonary effusion, anaphylaxis, diabetic ketoacidosis, flailed chest, pulmonary contusion, diaphragmatic rupture, anemia, neuromuscular, this is not meant to be an all-inclusive list. EKG interpreted by me (3pts min.). @ -As above X-rays interpreted by me (1pt min.). @ -Chest x-ray shows no acute abnormality CT interpreted by me (1pt min.). @ -None done U/S interpreted by me (1pt. min.). @ -None done What testing was considered but not performed or refused? (CT, X-rays, U/S, labs)? Why? @ -None What meds were considered but not given or refused? Why? @ -None Did you discuss the management of the patient with other professionals (professionals i.e. , PA, COURT LIAISON, lab, RT, psych nurse, social psychologist, machine wood sander, teacher, customs officer, pillowcase sewer)? Give summary @ -Dr. Sena accepted the patient I spoke with him about the patient Was smoking cessation discussed for >3mins.? @ -No Was critical care preformed (if so, how long)? @ -No Were there social determinants of health that impacted care today? How? (Homelessness, low income, unemployed, alcoholism, drug addiction, transpo rtation, low edu. Level, literacy, decrease access to med. care, group home, rehab)? @ -No Was there de-escalation of care discussed even if they declined (Discuss DNR or withdrawal of care, Hospice)? DNR status @ -No What co-morbidities impacted this encounter? (DM, HTN, Smoking, COPD, CAD, Cancer, CVA, ARF, Chemo, Hep., AIDS, mental health diagnosis, sleep apnea, morbid obesity)? @ -None Was patient admitted / discharged? Hospital course, mention meds given and route, prescriptions, significant lab abnormalities, going to OR and other pertinent info. @ -Patient given her Department complaining of difficulty breathing secondary to the large abdomen. Patient however had an appointment this morning for a paracentesis and did not show up at 11:00 and she called name Eric 12:30 to come to the emergency department. I spoke with Dr. Ovalles and he agreed to admit the patient admitted the patient I wrote admitting orders Undiagnosed new problem with uncertain prognosis? @ -No Drug Therapy requiring intensive monitoring for toxicity (Heparin, Nitro, Insulin, Cardizem)? @ -No Were any procedures done? @ -No Diagnosis/symptom? @ -Ascites Acute, or Chronic, or Acute on Chronic? @ -Acute Uncomplicated (without systemic symptoms) or Complicated (systemic symptoms)? @ -Complicated Side effects of treatment? @ -No Exacerbation, Progression, or Severe Exacerbation? @ -No Poses a threat to life or bodily function? How? (Chest pain, USA, AL, pneumonia, PE, COPD, DKA, ARF, appy, cholecystitis, CVA, Diverticulitis, Homicidal, Suicidal, threat to staff... and all critical care pts) @ -No - Lab Data Result diagrams: 09/27/22 14:20 09/27/22 14:20 Lab Results 09/27/22 09/27/22 09/27/22 Range/Units 14:05 14:20 14:20 WBC 5.5 (3.8-10.6) k/uL RBC 4.54 (3.80-5.40) m/uL Hgb 12.0 (11.4-16.0) gm/dL Hct 38.2 (34.0-46.0) % MCV 84.1 (80.0-100.0) fL MCH 26.3 (25.0-35.0) pg MCHC 31.3 (31.0-37.0) g/dL RDW 16.2 H (11.5-15.5) % Plt Count 197 (150-450) k/uL MPV 8.0 Neutrophils % 81 % Lymphocytes % 10 % Monocytes % 5 % Eosinophils % 1 % Basophils % 0 % Neutrophils # 4.4 (1.3-7.7) k/uL Lymphocytes # 0.6 L (1.0-4.8) k/uL Monocytes # 0.3 (0-1.0) k/uL Eosinophils # 0.1 (0-0.7) k/uL Basophils # 0.0 (0-0.2) k/uL Hypochromasia Moderate Anisocytosis Slight PT 13.0 H (9.0-12.0) sec INR 1.3 H (<1.2) APTT 25.8 (22.0-30.0) sec Sodium (137-145) mmol/L Potassium (3.5-5.1) mmol/L Chloride (98-107) mmol/L Carbon Dioxide (22-30) mmol/L Anion Gap mmol/L BUN (7-17) mg/dL Creatinine (0.52-1.04) mg/dL Est GFR (CKD-EPI)AfAm (>60 ml/min/1.73 sqM) Est GFR (CKD-EPI)NonAf (>60 ml/min/1.73 sqM) Glucose (74-99) mg/dL Calcium (8.4-10.2) mg/dL Total Bilirubin (0.2-1.3) mg/dL AST (14-36) U/L ALT (4-34) U/L Alkaline Phosphatase (38-126) U/L Total Protein (6.3-8.2) g/dL Albumin (3.5-5.0) g/dL Urine Color Yellow Urine Appearance Clear (Clear) Urine pH 5.5 (5.0-8.0) Ur Specific [place] 1.019 (1.001-1.035) Urine Protein 1+ H (Negative) Urine Glucose (UA) Negative (Negative) Urine Ketones Negative (Negative) Urine Blood Negative (Negative) Urine Nitrite Negative (Negative) Urine Bilirubin Negative (Negative) Urine Urobilinogen <2.0 (<2.0) mg/dL Ur Leukocyte Esterase Trace H (Negative) Urine RBC 1 (0-5) /hpf Urine WBC 1 (0-5) /hpf Urine Mucus Rare H (None) /hpf 09/27/22 Range/Units 14:20 WBC (3.8-10.6) k/uL RBC (3.80-5.40) m/uL Hgb (11.4-16.0) gm/dL Hct (34.0-46.0) % MCV (80.0-100.0) fL MCH (25.0-35.0) pg MCHC (31.0-37.0) g/dL RDW (11.5-15.5) % Plt Count (150-450) k/uL MPV Neutrophils % % Lymphocytes % % Monocytes % % Eosinophils % % Basophils % % Neutrophils # (1.3-7.7) k/uL Lymphocytes # (1.0-4.8) k/uL Monocytes # (0-1.0) k/uL Eosinophils # (0-0.7) k/uL Basophils # (0-0.2) k/uL Hypochromasia Anisocytosis PT (9.0-12.0) sec INR (<1.2) APTT (22.0-30.0) sec Sodium 137 (137-145) mmol/L Potassium 4.0 (3.5-5.1) mmol/L Chloride 106 (98-107) mmol/L Carbon Dioxide 20 L (22-30) mmol/L Anion Gap 11 mmol/L BUN 20 H (7-17) mg/dL Creatinine 0.85 (0.52-1.04) mg/dL Est GFR (CKD-EPI)AfAm >90 (>60 ml/min/1.73 sqM) Est GFR (CKD-EPI)NonAf 85 (>60 ml/min/1.73 sqM) Glucose 118 H (74-99) mg/dL Calcium 9.1 (8.4-10.2) mg/dL Total Bilirubin 1.4 H (0.2-1.3) mg/dL AST 21 (14-36) U/L ALT 13 (4-34) U/L Alkaline Phosphatase 140 H (38-126) U/L Total Protein 7.2 (6.3-8.2) g/dL Albumin 3.8 (3.5-5.0) g/dL Urine Color Urine Appearance (Clear) Urine pH (5.0-8.0) Ur Specific [place] (1.001-1.035) Urine Protein (Negative) Urine Glucose (UA) (Negative) Urine Ketones (Negative) Urine Blood (Negative) Urine Nitrite (Negative) Urine Bilirubin (Negative) Urine Urobilinogen (<2.0) mg/dL Ur Leukocyte Esterase (Negative) Urine RBC (0-5) /hpf Urine WBC (0-5) /hpf Urine Mucus (None) /hpf Disposition Clinical Impression: Ascites Disposition: ADMITTED IP TO THIS [facility] Is patient prescribed a controlled substance at d/c from ED?: No Referrals: Odell Sena MD [Primary Care Provider] - 1-2 days Time of Disposition: 16:20
--- NOTE | 2022-09-27 14:16 | XR ---
EXAMINATION TYPE: XR chest 2V DATE OF EXAM: 09/27/2022 COMPARISON: 06/09/2022 HISTORY: 41 year-old female shortness of breath, difficulty breathing, abdominal distention and pain TECHNIQUE: PA and lateral views FINDINGS: Heart moderately enlarged. Interstitial prominence similar to slightly increased. Some focal density periphery of the left midlung is similar, likely some scarring. Otherwise, no consolidation or pleura l effusion. IMPRESSION: 1. Moderate cardiomegaly. Correlate for underlying COPD. 2. Interstitial prominence is similar to slightly increased. Correlate to exclude mild pulmonary vasc ular congestion, bronchitis, or asthma.
[2022-09-27 14:29] LABS: Appearance,Urine Clear (Clear); Bilirubin,Urine Negative (Negative); Blood,Urine Negative (Negative); Color,Urine Yellow; Glucose,Urine (UA) Negative (Negative); Ketones,Urine Negative (Negative); Leukocyte Esterase,Urine Trace (Negative); Mucus,Urine Rare /hpf; Nitrite,Urine Negative (Negative); PH, Urine 5.5 (5.0-8.0); Protein,Urine 1+ (Negative); RBC,Urine 1 /hpf (0-5); Specific Gravity,Urine 1.019 (1.001-1.035); Urobilinogen,Urine <2.0 mg/dL (<2.0); WBC,Urine 1 /hpf (0-5)
[2022-09-27 14:39] LABS: Anisocytosis Slight; Basophils % (A) 0 %; Eosinophils # (A) 0.1 k/uL (0-0.7); Eosinophils % (A) 1 %; HCT 38.2 % (34.0-46.0); Hypochromasia Moderate; Lymphocytes # (A) 0.6 k/uL (1.0-4.8); Lymphocytes % (A) 10 %; MCH 26.3 pg (25.0-35.0); MCHC 31.3 g/dL (31.0-37.0); MCV 84.1 fL (80.0-100.0); Monocytes # (A) 0.3 k/uL (0-1.0); Monocytes % (A) 5 %; Neutrophils # (A) 4.4 k/uL (1.3-7.7); Neutrophils % (A) 81 %; Platelet Count 197 k/uL (150-450); RBC 4.54 m/uL (3.80-5.40); RDW 16.2 % (11.5-15.5); WBC 5.5 k/uL (3.8-10.6)
[2022-09-27 14:41] LABS: ALT 13 U/L (4-34); AST 21 U/L (14-36); African American GFR (CKD) >90 (>60 ml/min/1.73 sqM); Albumin 3.8 g/dL (3.5-5.0); Alkaline Phosphatase 140 U/L (38-126); Anion Gap 11 mmol/L; Blood Urea Nitrogen 20 mg/dL (7-17); Calcium 9.1 mg/dL (8.4-10.2); Carbon Dioxide 20 mmol/L (22-30); Chloride 106 mmol/L (98-107); Glucose 118 mg/dL (74-99); Non-African American GFR(CKD) 85 (>60 ml/min/1.73 sqM); Sodium 137 mmol/L (137-145); Total Bilirubin 1.4 mg/dL (0.2-1.3); Total Protein 7.2 g/dL (6.3-8.2)
[2022-09-27] MEDS ORDERED: hydrALAZINE HCL 20 MG/ML 1 ML VIAL IVP STA ×3 (14:45→21:13)
[2022-09-27 14:46] LABS: INR 1.3 (<1.2); Partial Thromboplastin Time 25.8 sec (22.0-30.0)
[2022-09-27] MEDS ORDERED: HYDROmorphone 0.5 MG/0.5 ML SYRINGE IVP STA ×2 (15:37→21:13)
[2022-09-27] MEDS ORDERED: ONDANSETRON 4 MG/2 ML VIAL IVP STA (15:47)
[2022-09-27] MEDS ORDERED: LORazepam 2 MG/ML INJ IV STA (19:49)
[2022-09-27] MEDS ORDERED: LABETALOL 5 MG/ML VIAL MDV IVP STA (22:31)
[2022-09-28] MEDS: hydrALAZINE HCL 50 MG TAB PO SCH ×4 (00:47→21:24)
[2022-09-28] MEDS: cloNIDine HCL 0.1 MG TAB PO SCH ×4 (00:47→21:23)
[2022-09-28] MEDS: SPIRONOLACTONE 25 MG TAB PO SCH ×2 (00:47→09:16)
[2022-09-28] MEDS: SACUBITRIL/VALSARTAN 97 MG-103 MG TABLET PO SCH ×2 (01:28→09:16)
[2022-09-28] MEDS: TORSEMIDE 20 MG TAB PO SCH ×2 (01:28→09:16)
[2022-09-28 05:46] LABS: Glucose,Whole Blood 121 mg/dL (70-110)
[2022-09-28] MEDS ORDERED: HYDROmorphone 2 MG TAB PO PRN (08:44)
[2022-09-28] MEDS: METOPROLOL SUCCINATE (ER) 100 MG TAB.ER.24H PO SCH (09:08)
[2022-09-28] MEDS ORDERED: ALPRAZolam 1 MG TAB PO PRN (10:00)
[2022-09-28] MEDS ORDERED: HYDROmorphone 2 MG TAB PO ONE (10:30)
[2022-09-28 11:10] LABS: Glucose,Whole Blood 164 mg/dL (70-110)
[2022-09-28] MEDS ORDERED: TORSEMIDE 20 MG TAB PO PRN (15:30)
[2022-09-28] MEDS ORDERED: CLOPIDOGREL 75 MG TAB PO SCH (15:30)
[2022-09-28] MEDS ORDERED: metOLazone 2.5 MG TAB PO PRN (15:30)
[2022-09-28] MEDS ORDERED: APIXABAN 2.5 MG TABLET PO SCH (15:30)
[2022-09-28] MEDS ORDERED: ONDANSETRON 4 MG TAB PO PRN (15:30)
[2022-09-28] MEDS ORDERED: NON FORMULARY DRUG (Hydralazine Hcl [Apresoline] 100 MG Tablet) PO SCH (16:00)
[2022-09-28 17:21] LABS: Glucose,Whole Blood 88 mg/dL (70-110)
[2022-09-28] MEDS: PANTOPRAZOLE 40 MG TABLET PO SCH (17:29)
[2022-09-28] MEDS: HYDROmorphone 2 MG TAB PO PRN (17:29)
[2022-09-28 20:39] LABS: Glucose,Whole Blood 138 mg/dL (70-110)
[2022-09-28] MEDS: INSULIN DETEMIR (LEVEMIR) 100 UNIT/ML SYR SQ SCH (21:22)
[2022-09-28] MEDS: SACUBITRIL/VALSARTAN 24 MG-26 MG TABLET PO SCH (21:23)
[2022-09-28] MEDS: MONTELUKAST 10 MG TAB PO SCH (21:23)
[2022-09-29] MEDS: HYDROmorphone 2 MG TAB PO PRN ×3 (01:33→15:48)
--- NOTE | 2022-09-29 03:59 | PN ---
PROGRESS NOTE DATE OF SERVICE: 09/28/2022 CHIEF COMPLAINT: Malignant hypertension with congestive heart failure. HISTORY OF PRESENT ILLNESS: This lady is doing a bit better. Breathing has improved. Blood pressure is definitely down. PHYSICAL EXAMINATION: VITAL SIGNS: Blood pressure is 115/73. CHEST: Clear. CARDIAC: Normal. MUSCULOSKELETAL: She is still quite edematous. IMPRESSION: 1. Hypertensive urgency. 2. Acute on chronic congestive heart failure. 3. Chronic heart failure with preserved ejection fraction. 4. Type 2 diabetes mellitus. 5. Lower extremity venous stasis disease with cellulitis and ulcers. PLAN: Continue to manage her hypertension, heart failure while increasing her activity. MMODL / IJN: [id number] /
--- NOTE | 2022-09-29 04:17 | HP ---
HISTORY AND PHYSICAL CHIEF COMPLAINT: Shortness of breath and ascites. HISTORY OF PRESENT ILLNESS: This is an another recent admission for this 41-year-old white female who has an atherosclerotic cardiomyopathy was told that she is a candidate for heart transplant, but she will not go back. She largely has been concerned with stasis, cellulitis and ulcers of the lower extremities. She has also developed ascites and was to be tapped and was found, once again, to have hypertension. Whenever we asked her what her blood pressure is at home, she always states that it is "good." However, whenever she is in the office, it is elevated. When she came to the emergency room, her blood pressure was 194/117. She does not take medications at home as prescribed. REVIEW OF SYSTEMS: She denies any headaches, neurologic problems, difficulty with vision, hearing; chest pain, abdominal pain, nausea, vomiting, diarrhea, melena, urinary complaints, etc. Her GFR is excellent at 85. She is diabetic. Past medical history, family history, personal and social histories are all otherwise unremarkable and noncontributory. MEDICATIONS: She is on numerous medications which can be found in her MAR. PHYSICAL EXAMINATION: VITAL SIGNS: Blood pressure 194/117 with sinus tachycardia at 95. She is afebrile and respirations of 38. GENERAL: She appeared to be overweight and short of breath. Face was flushed and edematous. HEAD, EARS, EYES, NOSE, MOUTH AND THROAT: Normal. CHEST: Demonstrated decreased breath sounds with rales throughout. CARDIAC: Demonstrated sinus tachycardia. ABDOMEN: Protuberant, and slightly firm and nontender. EXTREMITIES: She is admitted to the hospital with diagnoses, 1. Hypertension urgency. 2. Acute on chronic heart failure. 3. Atherosclerotic cardiomyopathy. 4. Type 2 insulin-dependent diabetes mellitus. 5. Lower extremity stasis dermatitis with cellulitis and ulcers. PLAN: 1. Bed rest. 2. IV fluids. 3. Controlled hypertension. 4. Resume her analgesics for her legs. MMODL / IJN: [id number] /
[2022-09-29 04:21] LABS: Appearance,BF Clear (Clear)
[2022-09-29 06:35] LABS: Glucose,Whole Blood 85 mg/dL (70-110)
[2022-09-29] MEDS: PANTOPRAZOLE 40 MG TABLET PO SCH ×2 (07:01→17:08)
[2022-09-29] MEDS: METOPROLOL SUCCINATE (ER) 100 MG TAB.ER.24H PO SCH (07:45)
[2022-09-29] MEDS: hydrALAZINE HCL 50 MG TAB PO SCH ×3 (07:45→23:31)
[2022-09-29] MEDS: cloNIDine HCL 0.1 MG TAB PO SCH ×3 (07:46→20:48)
[2022-09-29] MEDS: FERROUS SULFATE 325 MG TAB PO SCH (08:10)
[2022-09-29] MEDS: DAPAGLIFLOZIN PROPANEDIOL 10 MG TABLET PO SCH (08:10)
[2022-09-29] MEDS: EZETIMIBE 10 MG TAB PO SCH (08:10)
[2022-09-29] MEDS: SPIRONOLACTONE 25 MG TAB PO SCH (08:11)
[2022-09-29] MEDS: SACUBITRIL/VALSARTAN 24 MG-26 MG TABLET PO SCH ×2 (08:11→20:29)
[2022-09-29] MEDS: TORSEMIDE 20 MG TAB PO SCH (08:11)
--- NOTE | 2022-09-29 08:43 | US ---
Ultrasound-guided paracentesis. DATE OF EXAM: 09/28/2022 CLINICAL HISTORY: Ascites The procedure was discussed with the patient. The risks, complications, benefits, and alternatives we re discussed and any questions were answered. Informed consent was obtained. The patient was placed s upine on the ultrasound table and prepped and draped in the usual sterile fashion. All elements of maximal barrier technique were utilized. Under ultrasound guidance, access into the right lower quadrant was obtained, via the paracentesis catheter system and direct ultrasound guidanc e. Approximately 10 liters of straw-colored fluid was removed. The patient was stable throughout the pro cedure and remained stable upon discharge from Department of Radiology. IMPRESSION: Successful paracentesis under ultrasound guidance.
[2022-09-29] MEDS ORDERED: METOPROLOL SUCCINATE (ER) 100 MG TAB.ER.24H PO SCH (09:00)
[2022-09-29] MEDS ORDERED: SPIRONOLACTONE 25 MG TAB PO SCH (09:00)
[2022-09-29 11:56] LABS: Glucose,Whole Blood 108 mg/dL (70-110)
[2022-09-29 16:55] LABS: Glucose,Whole Blood 154 mg/dL (70-110)
[2022-09-29 19:48] VITALS: RESP 20
[2022-09-29 20:09] LABS: Glucose,Whole Blood 120 mg/dL (70-110)
[2022-09-29] MEDS: INSULIN DETEMIR (LEVEMIR) 100 UNIT/ML SYR SQ SCH (20:29)
[2022-09-29] MEDS: MONTELUKAST 10 MG TAB PO SCH (20:29)
[2022-09-30] MEDS: HYDROmorphone 2 MG TAB PO PRN (00:11)
[2022-09-30] MEDS ORDERED: HYDROmorphone 2 MG TAB PO STA (01:52)
[2022-09-30 06:02] LABS: Glucose,Whole Blood 109 mg/dL (70-110)
[2022-09-30] MEDS: PANTOPRAZOLE 40 MG TABLET PO SCH (06:31)
[2022-09-30 07:42] VITALS: BP 115/64; PULSE 75; TEMP 98
[2022-09-30] MEDS: METOPROLOL SUCCINATE (ER) 100 MG TAB.ER.24H PO SCH (09:25)
[2022-09-30] MEDS: EZETIMIBE 10 MG TAB PO SCH (09:25)
[2022-09-30] MEDS: SPIRONOLACTONE 25 MG TAB PO SCH (09:25)
[2022-09-30] MEDS: FERROUS SULFATE 325 MG TAB PO SCH (09:25)
[2022-09-30] MEDS: hydrALAZINE HCL 50 MG TAB PO SCH (09:25)
[2022-09-30] MEDS: DAPAGLIFLOZIN PROPANEDIOL 10 MG TABLET PO SCH (09:27)
[2022-09-30] MEDS: SACUBITRIL/VALSARTAN 24 MG-26 MG TABLET PO SCH (09:27)
[2022-09-30] MEDS: cloNIDine HCL 0.1 MG TAB PO SCH (09:33)
[2022-09-30] MEDS: TORSEMIDE 20 MG TAB PO SCH (09:52)
[2022-09-30 11:44] LABS: Glucose,Whole Blood 124 mg/dL (70-110)
--- NOTE | 2022-10-04 22:42 | PN ---
PROGRESS NOTE DATE OF SERVICE: 09/29/2022 CHIEF COMPLAINT: Ascites, leg pain, lower extremity stasis disease and hypertension. HISTORY OF PRESENT ILLNESS: This lady is complaining a lot of abdominal pain. She is also complaining of her usual lower extremity pain where she has stasis disease with cellulitis, dermatitis and ulcers, which was treated elsewhere. PHYSICAL EXAMINATION: LUNGS: Breath sounds are diminished with rales at both bases. CARDIAC: Normal. ABDOMEN: Soft and nontender. VITAL SIGNS: Blood pressure is coming down. IMPRESSION: 1. Ascites. 2. Abdominal pain. 3. Malignant hypertension. 4. Congestive heart failure. 5. Lower extremity stasis disease with dermatitis and cellulitis. PLAN: Continue efforts to bring her blood pressure under control. I am trying to get her to cut down on medications because of her lethargy. We will not be happy about this because she is taking high quantities of analgesics. MMODL / IJN: [id number] /
--- NOTE | 2022-10-04 22:59 | DS ---
DISCHARGE SUMMARY CHIEF COMPLAINT: Uncontrolled hypertension, CHF, abdominal ascites, leg pain. HISTORY OF PRESENT ILLNESS AND PHYSICAL EXAMINATION: Details of this lady's history and physical can be found in the initial workup. LABORATORY STUDIES: While she is in the hospital, she had laboratory studies, details of which can be found in the laboratory section of her chart. COURSE IN THE HOSPITAL: After admission, she was placed on bedrest and started on intravenous fluids with a goal to bring her blood pressure under control. While in the hospital, she required to demand at her usual narcotic pain medications. She became somewhat lethargic and these were cut back somewhat. She was doing well and anxious to be discharged and she was sent home on the . FINAL DIAGNOSES: 1. Acute abdominal pain. 2. Ascites. 3. Lower extremity stasis disease with stasis dermatitis and ulcers. 4. Uncontrolled malignant hypertension. 5. Chronic congestive heart failure. 6. Atherosclerotic cardiomyopathy. OPERATIONS: None. CONSULTATIONS: None. She is improved. MMRODNEY / SHERIFN: [id number] /
== END 2022-09-30 14:43 | disposition home or self-care (01) ==
LOC: EC 12:44 → 6NMEDSUR 16:23 → 4SSUR 19:45
PROVIDERS: ADMIT Family Medicine; ATTEND Family Medicine
DX: R52 Pain, unspecified (principal); R18.8 Other ascites; I25.10 Atherosclerotic heart disease of native coronary artery without angina pectoris; I11.0 Hypertensive heart disease with heart failure; I50.9 Heart failure, unspecified; I87.2 Venous insufficiency (chronic) (peripheral); I10 Essential (primary) hypertension; C85.90 Non-Hodgkin lymphoma, unspecified, unspecified site; R22.40 Localized swelling, mass and lump, unspecified lower limb; I48.91 Unspecified atrial fibrillation; J45.909 Unspecified asthma, uncomplicated; E11.40 Type 2 diabetes mellitus with diabetic neuropathy, unspecified; F41.9 Anxiety disorder, unspecified; F31.9 Bipolar disorder, unspecified; F20.9 Schizophrenia, unspecified; Z87.891 Personal history of nicotine dependence; G20 Parkinson's disease; K21.9 Gastro-esophageal reflux disease without esophagitis; E78.5 Hyperlipidemia, unspecified; I25.2 Old myocardial infarction; N28.9 Disorder of kidney and ureter, unspecified; Z86.711 Personal history of pulmonary embolism; Z85.6 Personal history of leukemia; Z86.14 Personal history of Methicillin resistant Staphylococcus aureus infection; Z98.891 History of uterine scar from previous surgery; Z95.5 Presence of coronary angioplasty implant and graft; Z96.651 Presence of right artificial knee joint; Z98.51 Tubal ligation status; Z98.890 Other specified postprocedural states; Z79.01 Long term (current) use of anticoagulants; Z79.84 Long term (current) use of oral hypoglycemic drugs; Z79.02 Long term (current) use of antithrombotics/antiplatelets; Z79.4 Long term (current) use of insulin; Z79.899 Other long term (current) drug therapy; Z88.1 Allergy status to other antibiotic agents; Z88.5 Allergy status to narcotic agent; Z88.0 Allergy status to penicillin; Z88.2 Allergy status to sulfonamides; Z88.8 Allergy status to other drugs, medicaments and biological substances; Z91.048 Other nonmedicinal substance allergy status
CPT/HCPCS: 96376; 96374; 96375; 99285; 36415; 93005; 88108; 88305; 83880; 80053; 89050; 85025; 85610; 85730; 81001; 88342; 88341; 71046; 49083; G0378 ×5; J2060; J0360; J2405; J1170

== ENCOUNTER 2023-02-13 21:41 | Inpatient (IN) | payer MEDICARE, OTHER ==
--- NOTE | 2023-02-13 22:18 | ED ---
Recheck HPI - General Chief Complaint: Chest Pain Stated Complaint: Chest pain Time Seen by Provider: 02/13/23 21:46 Source: patient, EMS, RN notes reviewed, old records reviewed, Caregiver Mode of arrival: EMS Limitations: no limitations - History of Present Illness Initial Comments: This is a 42-year-old female DF for evaluation of severe ascites significant ascites and abdominal pain with chest pain shortness of breath, patient has history of heart failure history of significant abdominal ascites and severe shortness of breath with exertion. Patient does have recent inpatient hospital evaluation does have significant abdominal edema scheduled for outpatient paracentesis therapeutic tomorrow MD Complaint: other (Severe shortness of breath and ascites) -: days(s) Returns Today for: persistent/worsening pain related to initial visit Symptoms Since Prior Visit: worsening pain Associated Symptoms: none Treatments Prior to Arrival: other (0) - Related Data Home Medications Medication Instructions Recorded Confirmed Metoprolol Succinate (ER) [Toprol 100 mg PO DAILY 07/29/21 02/13/23 XL] Nitroglycerin 0.4MG/Hr Patch 1 patch TRANSDERM DAILY PRN 08/26/21 02/13/23 [Nitro-Dur 0.4MG/Hr Patch] ALPRAZolam [Xanax] 1 mg PO BID PRN 03/14/22 02/13/23 Albuterol Inhaler [Ventolin Hfa 1 - 2 puff INHALATION RT-QID PRN 03/14/22 02/13/23 Inhaler] Apixaban [Eliquis] 2.5 mg PO DIRECTED 03/14/22 02/14/23 cloNIDine HCL [Catapres] 0.1 mg PO BID 03/14/22 02/13/23 Collagenase [Santyl Ointment] 1 applic TOPICAL DAILY 06/08/22 02/13/23 Montelukast [Singulair] 10 mg PO HS 08/11/22 02/13/23 Sacubitril/Valsartan [Entresto 24 1 tab PO BID 08/11/22 02/13/23 mg-26 mg Tablet] Clopidogrel [Plavix] 75 mg PO DIRECTED 08/17/22 02/14/23 hydrALAZINE HCL [Apresoline] 100 mg PO TID 09/27/22 02/13/23 HYDROmorphone [Dilaudid] 4 mg PO Q6H PRN 12/05/22 02/13/23 Pantoprazole [Protonix] 40 mg PO BID PRN 02/13/23 02/13/23 Previous Rx's Medication Instructions Recorded Ezetimibe [Zetia] 10 mg PO DAILY #30 tab 02/02/21 Allergies Allergy/AdvReac Type Severity Reaction Status Date / Time azithromycin Allergy Anaphylaxis Verified 02/13/23 22:20 cephalexin [From Keflex] Allergy Rash/Hives Verified 02/13/23 22:20 clindamycin Allergy Anaphylaxis Verified 02/13/23 22:20 codeine Allergy Rash/Hives Verified 02/13/23 22:20 doxycycline Allergy Anaphylaxis Verified 02/13/23 22:20 Iodine and Iodide Containing Allergy Rash/Hives Verified 02/13/23 22:20 Produc levofloxacin [From Levaquin] Allergy Rash/Hives Verified 02/13/23 22:20 penicillin V Allergy Rash/Hives Verified 02/13/23 22:20 Penicillins Allergy Anaphylaxis Verified 02/13/23 22:20 silver Allergy Rash/Hives Verified 02/13/23 22:20 sulfamethoxazole Allergy Rash/Hives Verified 02/13/23 22:20 [From Bactrim] tramadol Allergy Rash/Hives Verified 02/13/23 22:20 trimethoprim [From Bactrim] Allergy Rash/Hives Verified 02/13/23 22:20 vancomycin Allergy Rash/Hives Verified 02/13/23 22:20 zinc Allergy Rash/Hives Verified 02/13/23 22:20 Review of Systems ROS Statement: Those systems with pertinent positive or pertinent negative responses have been documented in the HPI. ROS Other: All systems not noted in ROS Statement are negative. Past Medical History Past Medical History: Atrial Fibrillation, Asthma, Coronary Artery Disease (CAD), Cancer, Chest Pain / Angina, Heart Failure, Diabetes Mellitus, GERD/Reflux, Hyperlipidemia, Hypertension, Myocardial Infarction ([place]), Pulmonary Embolus ([place]), Renal Disease, Respiratory Disorder Additional Past Medical History / Comment(s): CA- lymphoma, childhood leukemia, lymphedema, ascites Last Myocardial Infarction Date:: 04/2019 History of Any Multi-Drug Resistant Organisms: MRSA Date of last positivie culture/infection: 10/2021 MDRO Source:: dog bite Past Surgical History: Section, Heart Catheterization With Stent, Joint Replacement, Tonsillectomy, Tubal Ligation Additional Past Surgical History / Comment(s): Partial R knee replacement, PCI/stents, surgery for PE/radiation, paracentesis Past Anesthesia/Blood Transfusion Reactions: No Reported Reaction Additional Past Anesthesia/Blood Transfusion Reaction / Comment(s): Pt received blood as a child with leukemia without reaction. Date of Last Stent Placement:: 05/08/19 Past Psychological History: Anxiety, Bipolar, Depression, Schizophrenia Smoking Status: Former smoker Past Alcohol Use History: None Reported Past Drug Use History: None Reported - Past Family History Father Family Medical History: Coronary Artery Disease (CAD), Hyperlipidemia, Hypertension Additional Family Medical History / Comment(s): pins in knee, heart stents x 4. Father is Mother Family Medical History: Coronary Artery Disease (CAD), Dementia, Diabetes Mellitus, Musculoskeletal Disorder, Renal Disease Additional Family Medical History / Comment(s): Parkinson's, stents in heart, neuropathy. General Exam Limitations: no limitations General appearance: alert, in no apparent distress, anxious Head exam: Present: atraumatic, normocephalic, normal inspection Eye exam: Present: normal appearance, PERRL, EOMI. Absent: scleral icterus, conjunctival injection, periorbital swelling ENT exam: Present: normal exam, mucous membranes moist Neck exam: Present: normal inspection. Absent: tenderness, meningismus, lymphadenopathy Respiratory exam: Present: normal lung sounds bilaterally. Absent: respiratory distress, wheezes, rales, rhonchi, stridor Cardiovascular Exam: Present: regular rate, normal rhythm, normal heart sounds. Absent: systolic murmur, diastolic murmur, rubs, gallop, clicks GI/Abdominal exam: Present: soft, normal bowel sounds. Absent: distended, tenderness, guarding, rebound, rigid Extremities exam: Present: normal inspection, full ROM, normal capillary refill. Absent: tenderness, pedal edema, joint swelling, calf tenderness Back exam: Present: normal inspection Neurological exam: Present: alert, oriented X3, CN II-XII intact Psychiatric exam: Present: normal affect, normal mood Skin exam: Present: warm, dry, intact, normal color. 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 ] Respiratory 22 14 Rate Blood Pressure 200/121 197/131 O2 Sat by Pulse 99 98 Oximetry 02/13/23 02/14/23 02/14/23 23:30 00:00 01:00 Temperature Pulse Rate 101 H 100 105 H Pulse Rate [ Marine Equipment Engineer ] Respiratory 19 28 H 28 H Rate Blood Pressure 178/156 195/127 197/123 O2 Sat by Pulse 98 Oximetry 02/14/23 02/14/23 02/14/23 01:51 02:00 02:46 Temperature Pulse Rate 104 H 107 H 103 H Pulse Rate [ Marine Equipment Engineer ] Respiratory 20 18 20 Rate Blood Pressure 179/118 191/133 183/129 O2 Sat by Pulse 99 Oximetry 02/14/23 02/14/23 02/14/23 04:09 06:20 07:58 Temperature 97.9 F Pulse Rate 92 85 85 Pulse Rate [ Marine Equipment Engineer ] Respiratory 16 23 20 Rate Blood Pressure 176/120 169/106 181/125 O2 Sat by Pulse 99 99 97 Oximetry 02/14/23 02/14/23 02/14/23 09:00 10:00 11:00 Temperature Pulse Rate 96 75 86 Pulse Rate [ Marine Equipment Engineer ] Respiratory 20 20 16 Rate Blood Pressure 156/100 158/104 180/105 O2 Sat by Pulse 98 99 98 Oximetry 02/14/23 02/14/23 02/14/23 11:44 13:00 14:00 Temperature Pulse Rate 75 83 74 Pulse Rate [ Marine Equipment Engineer ] Respiratory 20 16 16 Rate Blood Pressure 150/110 180/103 122/98 O2 Sat by Pulse 98 98 96 Oximetry 02/14/23 02/14/23 02/14/23 15:00 17:00 18:00 Temperature Pulse Rate 79 80 80 Pulse Rate [ Marine Equipment Engineer ] Respiratory 16 16 20 Rate Blood Pressure 151/88 158/96 116/81 O2 Sat by Pulse 98 98 97 Oximetry 02/14/23 02/14/23 02/14/23 19:28 22:12 22:41 Temperature Pulse Rate 61 75 Pulse Rate [ Marine Equipment Engineer ] Respiratory 20 12 Rate Blood Pressure 131/86 134/114 127/97 O2 Sat by Pulse 99 Oximetry 02/15/23 02/15/23 02/15/23 00:52 03:04 05:00 Temperature Pulse Rate 68 65 Pulse Rate [ Marine Equipment Engineer ] Respiratory 20 18 16 Rate Blood Pressure 123/82 122/86 O2 Sat by Pulse 97 97 Oximetry 02/15/23 02/15/23 06:28 06:30 Temperature 98.6 F Pulse Rate 80 65 Pulse Rate [ Marine Equipment Engineer ] Respiratory 16 18 Rate Blood Pressure 100/66 115/57 O2 Sat by Pulse 99 97 Oximetry - Reevaluation(s) Reevaluation #1: 02/14/23 00:07 Medical records reviewed Reevaluation #2: 02/14/23 00:07 Patient symptoms are unchanged Reevaluation #3: 02/14/23 00:07 Patient informed results questions answered Reevaluation #4: 02/14/23 00:07 Was pt. sent in by a medical professional or institution (, [facility], LANDING SIGNAL OFFICER, urgent care, hospital, or half-way...) When possible be specific @ -no Did you speak to anyone other than the patient for history (EMS, parent, family, police, friend...)? What history was obtained from this source @ -no Did you review nursing and triage notes (agree or disagree)? Why? @ -agree Are old charts reviewed (outside hosp., previous admission, EMS record, old EKG, old radiological studies, urgent care reports/EKG's, half-way records)? Report findings @ -yes Differential Diagnosis (chest pain, altered mental status, abdominal pain women, abdominal pain men, vaginal bleeding, weakness, fever, dyspnea, syncope, headache, dizziness, GI bleed, back pain, seizure, CVA, palpatations, mental health, musculoskeletal)? @ -prior EKG interpreted by me (3pts min.). @ -yes X-rays interpreted by me (1pt min.). @ -no CT interpreted by me (1pt min.). @ -no U/S interpreted by me (1pt. min.). @ -no What testing was considered but not performed or refused? (CT, X-rays, U/S, labs)? Why? @ -none What meds were considered but not given or refused? Why? @ -none Did you discuss the management of the patient with other professionals (pro fessionals i.e. MERLYN Jain, LANDING SIGNAL OFFICER, lab, RT, psych nurse, social director, financial solutions advisor, teacher, chief science officer, case work aide)? Give summary @ -no Was smoking cessation discussed for >3mins.? @ -no Was critical care preformed (if so, how long)? @ -no Were there social determinants of health that impacted care today? How? (Homelessness, low income, unemployed, alcoholism, drug addiction, transportation, low edu. Level, literacy, decrease access to med. care, snf, rehab)? @ -none Was there de-escalation of care discussed even if they declined (Discuss DNR or withdrawal of care, Hospice)? DNR status @ -no What co-morbidities impacted this encounter? (DM, HTN, Smoking, COPD, CAD, Cancer, CVA, ARF, Chemo, Hep., AIDS, mental health diagnosis, sleep apnea, morbid obesity)? @ -none Was patient admitted / discharged? Hospital course, mention meds given and route, prescriptions, significant lab abnormalities, going to OR and other pertinent info. @ - 42 female to the emergency department for evaluation chest pain abdominal pain shortness of breath with history of the above. Patient scheduled for pa racentesis tomorrow therapeutic. Patient states her pain is out of control with shortness of breath with exertion no worsening symptoms, patient will be admitted for paracentesis and further evaluation of ascitic pain and shortness of breath with history of heart failure Admitted Undiagnosed new problem with uncertain prognosis? @ -no Drug Therapy requiring intensive monitoring for toxicity (Heparin, Nitro, Insulin, Cardizem)? @ -no Were any procedures done? @ -no Diagnosis/symptom? @ -CHF and ascites Acute, or Chronic, or Acute on Chronic? @ -Acute Uncomplicated (without systemic symptoms) or Complicated (systemic symptoms)? @ -Complicated Side effects of treatment? @ -no Exacerbation, Progression, or Severe Exacerbation? @ -exacerbation Poses a threat to life or bodily function? How? (Chest pain, [place], [place], pneumonia, PE, COPD, DKA, ARF, appy, cholecystitis, CVA, Diverticulitis, Homicidal, Suicidal, threat to staff... and all critical care pts) @ -yes with significant history of heart failure Reevaluation #5: 02/14/23 00:07 Differential Chest Pain: Stable Angina, Unstable Angina, STEMI, NSTEMI Aortic Dissection, Pneumothorax, Musculoskeletal, Esophageal Spasm GERD, Cholecystitis, Pancreatitis, Zoster, this is not meant to be an all-inclusive list. - Consultations Consultation #1: Spoke with Dr. Sena who agrees to admit this patient Medical Decision Making - Medical Decision Making 42 female to the emergency department for evaluation chest pain abdominal pain shortness of breath with history of the above. Patient scheduled for paracentesis tomorrow therapeutic. Patient states her pain is out of control with shortness of breath with exertion no worsening symptoms, patient will be admitted for paracentesis and further evaluation of ascitic pain and shortness of breath with history of heart failure - Lab Data Result diagrams: 02/17/23 08:38 02/17/23 08:38 Lab Results 02/13/23 02/13/23 02/13/23 Range/Units 22:21 22:21 22:21 WBC 6.1 (3.8-10.6) k/uL RBC 4.97 (3.80-5.40) m/uL Hgb 13.0 (11.4-16.0) gm/dL Hct 41.2 (34.0-46.0) % MCV 82.9 (80.0-100.0) fL MCH 26.2 (25.0-35.0) pg MCHC 31.6 (31.0-37.0) g/dL RDW 15.1 (11.5-15.5) % Plt Count 223 (150-450) k/uL MPV 7.4 Neutrophils % 80 % Lymphocytes % 14 % Monocytes % 3 % Eosinophils % 1 % Basophils % 0 % Neutrophils # 4.9 (1.3-7.7) k/uL Lymphocytes # 0.8 L (1.0-4.8) k/uL Monocytes # 0.2 (0-1.0) k/uL Eosinophils # 0.1 (0-0.7) k/uL Basophils # 0.0 (0-0.2) k/uL Hypochromasia Slight PT 12.8 H (10.0-12.5) sec INR 1.2 H (<1.2) APTT 27.1 (22.0-30.0) sec Sodium 138 (137-145) mmol/L Potassium 4.0 (3.5-5.1) mmol/L Chloride 105 (98-107) mmol/L Carbon Dioxide 19 L (22-30) mmol/L Anion Gap 14 mmol/L BUN 17 (7-17) mg/dL Creatinine 0.76 (0.52-1.04) mg/dL Est GFR (CKD-EPI)AfAm >90 (>60 ml/min/1.73 sqM) Est GFR (CKD-EPI)NonAf >90 (>60 ml/min/1.73 sqM) Glucose 115 H (74-99) mg/dL Plasma Lactic Acid Dalton (0.7-2.0) mmol/L Calcium 9.6 (8.4-10.2) mg/dL Phosphorus 3.7 (2.5-4.5) mg/dL Magnesium 1.7 (1.6-2.3) mg/dL Total Bilirubin 1.3 (0.2-1.3) mg/dL AST 19 (14-36) U/L ALT 11 (4-34) U/L Alkaline Phosphatase 95 (38-126) U/L Ammonia (<30) umol/L Troponin I (0.000-0.034) ng/mL NT-Pro-B Natriuret Pep 6710 pg/mL Total Protein 7.4 (6.3-8.2) g/dL Albumin 4.1 (3.5-5.0) g/dL Amylase 38 (30-110) U/L Lipase 50 (23-300) U/L Hepatitis A IgM Ab Hep Bs Antigen Hep B Core IgM Ab Hep C IgG Ab 02/13/23 02/13/23 02/13/23 Range/Units 22:21 22:21 22:21 WBC (3.8-10.6) k/uL RBC (3.80-5.40) m/uL Hgb (11.4-16.0) gm/dL Hct (34.0-46.0) % MCV (80.0-100.0) fL MCH (25.0-35.0) pg MCHC (31.0-37.0) g/dL RDW (11.5-15.5) % Plt Count (150-450) k/uL MPV Neutrophils % % Lymphocytes % % Monocytes % % Eosinophils % % Basophils % % Neutrophils # (1.3-7.7) k/uL Lymphocytes # (1.0-4.8) k/uL Monocytes # (0-1.0) k/uL Eosinophils # (0-0.7) k/uL Basophils # (0-0.2) k/uL Hypochromasia PT (10.0-12.5) sec INR (<1.2) APTT (22.0-30.0) sec Sodium (137-145) mmol/L Potassium (3.5-5.1) mmol/L Chloride (98-107) mmol/L Carbon Dioxide (22-30) mmol/L Anion Gap mmol/L BUN (7-17) mg/dL Creatinine (0.52-1.04) mg/dL Est GFR (CKD-EPI)AfAm (>60 ml/min/1.73 sqM) Est GFR (CKD-EPI)NonAf (>60 ml/min/1.73 sqM) Glucose (74-99) mg/dL Plasma Lactic Acid Dalton 1.0 (0.7-2.0) mmol/L Calcium (8.4-10.2) mg/dL Phosphorus (2.5-4.5) mg/dL Magnesium (1.6-2.3) mg/dL Total Bilirubin (0.2-1.3) mg/dL AST (14-36) U/L ALT (4-34) U/L Alkaline Phosphatase (38-126) U/L Ammonia <9 (<30) umol/L Troponin I 0.030 (0.000-0.034) ng/mL NT-Pro-B Natriuret Pep pg/mL Total Protein (6.3-8.2) g/dL Albumin (3.5-5.0) g/dL Amylase (30-110) U/L Lipase (23-300) U/L Hepatitis A IgM Ab Nonreactive Hep Bs Antigen Nonreactive Hep B Core IgM Ab Nonreactive Hep C IgG Ab Nonreactive - EKG Data -: EKG Interpreted by Me (EKG is sinus 79 MN 154 QRS 79 QTC 447) Disposition Clinical Impression: Ascites, SOB (shortness of breath), Chest pain, Abdominal pain, Elevated brain natriuretic peptide (BNP) level, Acute exacerbation of chronic obstructive pulmonary disease, Dyspnea on exertion, Heart failure Disposition: ADMITTED IP TO THIS HOSP Condition: Fair Is patient prescribed a controlled substance at d/c from ED?: No Time of Disposition: 00:05
[2023-02-13 23:27] LABS: INR 1.2 (<1.2); Partial Thromboplastin Time 27.1 sec (22.0-30.0); Prothrombin Time 12.8 sec (10.0-12.5)
[2023-02-13 23:28] LABS: ALT 11 U/L (4-34); AST 19 U/L (14-36); African American GFR (CKD) >90 (>60 ml/min/1.73 sqM); Albumin 4.1 g/dL (3.5-5.0); Alkaline Phosphatase 95 U/L (38-126); Amylase 38 U/L (30-110); Anion Gap 14 mmol/L; Blood Urea Nitrogen 17 mg/dL (7-17); Calcium 9.6 mg/dL (8.4-10.2); Carbon Dioxide 19 mmol/L (22-30); Chloride 105 mmol/L (98-107); Glucose 115 mg/dL (74-99); Lipase 50 U/L (23-300); Magnesium 1.7 mg/dL (1.6-2.3); Non-African American GFR(CKD) >90 (>60 ml/min/1.73 sqM); Phosphorus 3.7 mg/dL (2.5-4.5); Sodium 138 mmol/L (137-145); Total Bilirubin 1.3 mg/dL (0.2-1.3); Total Protein 7.4 g/dL (6.3-8.2)
[2023-02-13 23:34] LABS: NT-Pro-B-Type Natriuretic Pept 6710 pg/mL
[2023-02-13 23:39] LABS: Basophils % (A) 0 %; Eosinophils # (A) 0.1 k/uL (0-0.7); Eosinophils % (A) 1 %; HCT 41.2 % (34.0-46.0); Hypochromasia Slight; Lymphocytes # (A) 0.8 k/uL (1.0-4.8); Lymphocytes % (A) 14 %; MCH 26.2 pg (25.0-35.0); MCHC 31.6 g/dL (31.0-37.0); MCV 82.9 fL (80.0-100.0); Mean Platelet Volume 7.4; Monocytes # (A) 0.2 k/uL (0-1.0); Monocytes % (A) 3 %; Neutrophils # (A) 4.9 k/uL (1.3-7.7); Neutrophils % (A) 80 %; Platelet Count 223 k/uL (150-450); RBC 4.97 m/uL (3.80-5.40); RDW 15.1 % (11.5-15.5); WBC 6.1 k/uL (3.8-10.6)
[2023-02-14] MEDS ORDERED: NALOXONE 0.4 MG/ML 1 ML VIAL IV PRN (00:02)
[2023-02-14] MEDS ORDERED: ONDANSETRON 4 MG/2 ML VIAL IVP PRN (00:02)
[2023-02-14] MEDS: SODIUM CHLORIDE 0.9% 1,000 ML IV SCH ×2 (00:24→23:27)
[2023-02-14] MEDS ORDERED: METOPROLOL SUCCINATE (ER) 100 MG TAB.ER.24H PO STA (01:57)
[2023-02-14] MEDS ORDERED: hydrALAZINE HCL 50 MG TAB PO STA (01:59)
[2023-02-14] MEDS: MORPHINE SULFATE 4 MG/ML SYRINGE IV PRN ×3 (02:10→19:33)
[2023-02-14] MEDS: SPIRONOLACTONE 25 MG TAB PO SCH (08:43)
[2023-02-14] MEDS ORDERED: FUROSEMIDE 40 MG TAB PO SCH (09:00)
--- NOTE | 2023-02-14 09:17 | US ---
EXAMINATION TYPE: US liver DATE OF EXAM: 02/14/2023 COMPARISON: CLINICAL INDICATION: Female, 42 years old with history of Ascites, evaluate for liver disease; Hx asc ites with paracentesis. Abdomen pain. TECHNIQUE: Multiple sonographic images of the right upper quadrant are obtained. FINDINGS: EXAM MEASUREMENTS: Liver Length: 17.8 cm Gallbladder Wall: 0.4 cm CBD: 0.5 cm Right Kidney: 9.9 x 5.3 x 5.0 cm Pancreas: Echogenic in appearance Liver: No prominent masses or lesions seen Gallbladder: Slightly thickened wall Evidence for sonographic Pham's sign: neg CBD: wnl Right Kidney: Echogenic focus with shadow at mid hilum- 1.0 cm Ascites visualized in right and left abdomen IMPRESSION: 1. Ascites. 2. Gallbladder wall thickening could be related to hypoalbuminemia. 3. Medical renal disease. 4. Probable calculus within the renal pelvis. No lamine hydronephrosis.
--- NOTE | 2023-02-14 09:58 | P.CONS ---
History of Present Illness - Reason for Consult Consult date: 02/14/23 Ascites Requesting physician: Melvin Birch - Chief Complaint Chest pain, shortness of breath, ascites - History of Present Illness This is a 42-year-old female with multiple comorbidities including atrial fibrillation, coronary artery disease, diabetes mellitus, heart failure, pulmonary embolism, chronic kidney disease, chronic lower extremity wounds, and ascites which she believes is due to her heart failure. Patient was diagnosed with ascites 5-6 months ago she has not followed with a six horse hitch driver. Dr. Sena her PCP has been managing her ascites. Currently not on any diuretics. She has had 3 paracentesis here last one done 12/07/2022 with 11.6 L of fluid removed. In September of this year she had paracentesis with fluid studies with a negative cytology and protein greater than 4000 likely related to heart failure. Unfortunately that fluid study did not have fluid albumin. Patient is scheduled today for paracentesis with fluid studies. Patient states she's had shortness of breath and that she has been gurgling on fluids, chest pain and abdominal distention. She states that she was 29 scheduled for outpatient paracentesis. Patient does take a look well she states last dose was on Monday. Bilateral lower extremities with swelling and chronic wounds which he has been managing with the wound care center in [facility]. States that she has seen a mobile unit assistant in [facility] but does not have a regular mobile unit assistant following her. She did state that she went down to [facility] and was supposed to see a mobile unit assistant they are however she states appointment was canceled and had never seen the mobile unit assistant. She denies any previous history of liver disease, no history of alcoholism in the past or currently. Denies any history of hepatitis. LFTs are all normal. WBC 6.1 hemoglobin 13 platelet count 223,019 or 1.2 sodium 138 potassium 4.0B 117 creatinine 0.76 0.7 total bilirubin 1.3 AST 19 ALT 11 alkaline phosphatase 95 ammonia less than 9 BNP 6710 amylase 38 lipase 50 Review of Systems REVIEW OF SYSTEMS: CARDIOPULMONARY: Chest pain and shortness of breath. Gastrointestinal: Abdominal distention with ascites. No nausea or vomiting. No hematemesis, coffee-ground emesis. No rectal bleeding, or melena. GENITOURINARY: No dysuria or hematuria. MUSCULOSKELETAL: Reports normal range of motion. SKIN: No rashes. No jaundice. Lower extremity swelling with chronic wounds currently wrapped. ENDOCRINE: No chills, fevers. No excessive weight gain or loss. No polydipsia or polyuria. PSYCHIATRIC: Unremarkable. NEUROLOGY: No change in mental status. Denies dizziness, headache. ENT: Vision unremarkable. CONSTITUTIONAL: No recent weight loss. No fever, chills, night sweats. Past Medical History Past Medical History: Atrial Fibrillation, Asthma, Coronary Artery Disease (CAD), Cancer, Chest Pain / Angina, Heart Failure, Diabetes Mellitus, GERD/ Reflux, Hyperlipidemia, Hypertension, Myocardial Infarction (PR), Pulmonary Embolus (PE), Renal Disease, Respiratory Disorder Additional Past Medical History / Comment(s): CA- lymphoma, childhood leukemia, lymphedema, ascites Last Myocardial Infarction Date:: 04/2019 History of Any Multi-Drug Resistant Organisms: MRSA Year Discovered:: 10/2021 MDRO Source:: dog bite Past Surgical History: Section, Heart Catheterization With Stent, Joint Replacement, Tonsillectomy, Tubal Ligation Additional Past Surgical History / Comment(s): Partial R knee replacement, PCI/stents, surgery for PE/radiation, paracentesis Past Anesthesia/Blood Transfusion Reactions: No Reported Reaction Additional Past Anesthesia/Blood Transfusion Reaction / Comm: Pt received blood as a child with leukemia without reaction. Date of Last Stent Placement:: 05/08/19 Past Psychological History: Anxiety, Bipolar, Depression, Schizophrenia Smoking Status: Former smoker Past Alcohol Use History: None Reported Past Drug Use History: None Reported - Past Family History Father Family Medical History: Coronary Artery Disease (CAD), Hyperlipidemia, Hypertension Additional Family Medical History / Comment(s): pins in knee, heart stents x 4. Father is Mother Family Medical History: Coronary Artery Disease (CAD), Dementia, Diabetes Mellitus, Musculoskeletal Disorder, Renal Disease Additional Family Medical History / Comment(s): Parkinson's, stents in heart, neuropathy. Medications and Allergies Home Medications Medication Instructions Recorded Confirmed Type Ezetimibe [Zetia] 10 mg PO DAILY #30 tab 02/02/21 02/13/23 Rx Metoprolol Succinate (ER) [Toprol 100 mg PO DAILY 07/29/21 02/13/23 History XL] Nitroglycerin 0.4MG/Hr Patch 1 patch TRANSDERM DAILY PRN 08/26/21 02/13/23 History [Nitro-Dur 0.4MG/Hr Patch] ALPRAZolam [Xanax] 1 mg PO BID PRN 03/14/22 02/13/23 History Albuterol Inhaler [Ventolin Hfa 1 - 2 puff INHALATION RT-QID PRN 03/14/22 02/13/23 History Inhaler] Apixaban [Eliquis] 2.5 mg PO DIRECTED 03/14/22 02/13/23 History cloNIDine HCL [Catapres] 0.1 mg PO BID 03/14/22 02/13/23 History Collagenase [Santyl Ointment] 1 applic TOPICAL DAILY 06/08/22 02/13/23 History Montelukast [Singulair] 10 mg PO HS 08/11/22 02/13/23 History Sacubitril/Valsartan [Entresto 24 1 tab PO BID 08/11/22 02/13/23 History mg-26 mg Tablet] Clopidogrel [Plavix] 75 mg PO DIRECTED 08/17/22 02/13/23 History hydrALAZINE HCL [Apresoline] 100 mg PO TID 09/27/22 02/13/23 History HYDROmorphone [Dilaudid] 4 mg PO Q6H PRN 12/05/22 02/13/23 History Pantoprazole [Protonix] 40 mg PO BID PRN 02/13/23 02/13/23 History Allergies Allergy/AdvReac Type Severity Reaction Status Date / Time azithromycin Allergy Anaphylaxis Verified 02/13/23 22:20 cephalexin [From Keflex] Allergy Rash/Hives Verified 02/13/23 22:20 clindamycin Allergy Anaphylaxis Verified 02/13/23 22:20 codeine Allergy Rash/Hives Verified 02/13/23 22:20 doxycycline Allergy Anaphylaxis Verified 02/13/23 22:20 Iodine and Iodide Containing Allergy Rash/Hives Verified 02/13/23 22:20 Produc levofloxacin [From Levaquin] Allergy Rash/Hives Verified 02/13/23 22:20 penicillin V Allergy Rash/Hives Verified 02/13/23 22:20 Penicillins Allergy Anaphylaxis Verified 02/13/23 22:20 silver Allergy Rash/Hives Verified 02/13/23 22:20 sulfamethoxazole Allergy Rash/Hives Verified 02/13/23 22:20 [From Bactrim] tramadol Allergy Rash/Hives Verified 02/13/23 22:20 trimethoprim [From Bactrim] Allergy Rash/Hives Verified 02/13/23 22:20 vancomycin Allergy Rash/Hives Verified 02/13/23 22:20 zinc Allergy Rash/Hives Verified 02/13/23 22:20 Physical Exam Vitals: Vital Signs Temp Pulse Pulse Resp BP Pulse Ox 02/14/23 06:20 85 23 169/106 99 02/14/23 04:09 92 16 176/120 99 02/14/23 02:46 103 H 20 183/129 99 02/14/23 02:00 107 H 18 191/133 02/14/23 01:51 104 H 20 179/118 02/14/23 01:00 105 H 28 H 197/123 02/14/23 00:00 100 28 H 195/127 02/13/23 23:30 101 H 19 178/156 98 02/13/23 22:28 95 14 197/131 98 02/13/23 21:50 103 H 02/13/23 21:43 97.5 F L 103 H 22 200/121 99 Intake and Output 02/13/23 02/14/23 02/14/23 22:59 06:59 14:59 Other: Weight 79.832 kg General appearance: The patient is alert, oriented, appears in no acute distress. HET: Head is normocephalic and atraumatic. Conjunctiva pink. Sclera anicteric. Neck: Supple without lymphadenopathy. Trachea midline. Heart: Regular. Lungs: Equal expansion, normal respiratory effort. Abdomen: Soft, nontender, distended, ascites. No guarding or rigidity. Skin: No rashes. No jaundice. Extremities: Normal skin color and turgor. Bilateral lower extremity edema, currently wrapped with Ryan wrap. Neurological: No focal deficits. Alert and oriented x3. Results CBC & Chem 7: 02/13/23 22:21 02/13/23 22:21 Labs: Abnormal Lab Results - Last 24 Hours (Table) 02/13/23 02/13/23 02/13/23 Range/Units 22:21 22:21 22:21 Lymphocytes # 0.8 L (1.0-4.8) k/uL PT 12.8 H (10.0-12.5) sec INR 1.2 H (<1.2) Carbon Dioxide 19 L (22-30) mmol/L Glucose 115 H (74-99) mg/dL Assessment and Plan (1) Ascites Narrative/Plan: 42-year-old recently diagnosed with ascites 5-6 months ago with multiple comorbidities including coronary artery disease, diabetes, atrial fibrillation, heart failure, chronic lower extremity edema with wounds presented for chest pain and shortness of breath. Patient states that she is his hand 3 paracentesis in the past with fluid studies. Cytology negative, elevated protein of 4180 suggestive of likely cardiac source. No fluid albumin collected. Scheduled for paracentesis today and will order fluid albumin and protein. She is not currently on any diuretics, states that she was taken off of them because they did not work. She is not following with a mobile unit assistant and has been managed by her PCP Dr. Sena. States that she has had an appointment down at [facility], status post follow with mobile unit assistant there however appointment was canceled. Again patient has no history of liver disease, LFTs are all normal, no history of drinking, will get ultrasound of the liver and order hepatitis panel. Will need to also consider possibility of non alcoholic fatty liver disease. Liver ultrasound ordered. Ascites possibly related to coronary artery disease and heart failure especially with the elevated protein. We'll consult with cardiology. Current Visit: Yes Status: Acute Code(s): R18.8 - OTHER ASCITES SNOMED Code(s): 223238249 (2) Heart failure Current Visit: No Status: Acute Code(s): I50.9 - HEART FAILURE, UNSPECIFIED SNOMED Code(s): 41457202 (3) Diabetes mellitus Current Visit: Yes Status: Acute Code(s): E11.9 - TYPE 2 DIABETES MELLITUS WITHOUT COMPLICATIONS SNOMED Code(s): 31097802 (4) Coronary artery disease Current Visit: Yes Status: Acute Code(s): I25.10 - ATHSCL HEART DISEASE OF [place] CORONARY ARTERY W/O ANG PCTRS SNOMED Code(s): 96422681 (5) Chest pain Current Visit: Yes Status: Acute Code(s): R07.9 - CHEST PAIN, UNSPECIFIED SNOMED Code(s): 77211076 (6) SOB (shortness of breath) Current Visit: Yes Status: Acute Code(s): R06.02 - SHORTNESS OF BREATH SNOMED Code(s): 810754697 (7) Atrial fibrillation Current Visit: No Status: Acute Code(s): I48.91 - UNSPECIFIED ATRIAL FIBRILLATION SNOMED Code(s): 40674132 (8) Bilateral lower extremity edema Current Visit: No Status: Acute Code(s): R60.0 - LOCALIZED EDEMA SNOMED Code(s): 283882657 (9) Hypertension Current Visit: No Status: Acute Code(s): I10 - ESSENTIAL (PRIMARY) HYPERTENSION SNOMED Code(s): 65066170 Plan: 1. Continue symptomatic supportive care 2. Paracentesis ordered, fluid albumin and protein ordered 3. Start Lasix 40 mg daily and Aldactone 100 mg daily 4. Recommend low sodium diet 5. Consult to cardiology, patient has history coronary artery disease, heart failure with ascites likely secondary to heart failure 6. Acute hepatitis panel ordered 7. Liver ultrasound ordered Thank you for this consultation, we will continue to follow. Dr. Brigitte Mullen I agree with the dictator's note, documented as a scribe by Mame Donovan.
[2023-02-14] MEDS ORDERED: PANTOPRAZOLE 40 MG TABLET PO PRN (10:39)
[2023-02-14] MEDS ORDERED: NITROGLYCERIN 0.4MG/HR PATCH TRANSDERM PRN (10:39)
[2023-02-14] MEDS ORDERED: CLOPIDOGREL 75 MG TAB PO SCH (10:45)
[2023-02-14] MEDS: SACUBITRIL/VALSARTAN 24 MG-26 MG TABLET PO SCH ×2 (11:31→20:36)
[2023-02-14] MEDS ORDERED: cloNIDine HCL 0.1 MG TAB PO SCH ×3 (14:15→21:00)
--- NOTE | 2023-02-14 14:15 | P.CRDCN ---
History of Present Illness Consult date: 02/14/23 History of present illness: HISTORY OF PRESENT ILLNESS: This is a 42-year-old female with a past medical history of diabetes, hypertension, coronary artery disease with previous stenting, ischemic cardiomyopathy, hyperlipidemia, LV thrombus on anticoagulation, and ascites with previous paracentesis. Patient follows with a project management manager in [place]. Dr. Diop. We have been asked to see the patient in consultation for CAD, heart failure, ascites likely cardiac. Patient is seen today in the emergency center waiting for a bed on the [facility] floor. Patient had a recent hospitalization in November of this year which time she was treated for acute on chronic reduced ejection fraction heart failure. Patient presented to the hospital due to chest pain, abdominal pain, shortness of breath. She was due for paracentesis that was scheduled for outpatient today. Patient states that her PCP has sent her to [facility] and she states she was there had 1.2 L taken off and was sent home. She states that no one has told her why she has the ascites. She de nies any history of alcohol abuse, no smoking history and no drug abuse. Patient is status post hydralazine 100 mg oral once and Toprol-XL 100 mg once. Initial blood pressure 200/121 and heart rate in the low 100s. Blood pressure at time of evaluation is 180/103. EKG reveals sinus rhythm with evidence of previous anterior wall OR and biatrial enlargement, no signs of acute ischemia Ultrasound of the liver revealed ascites. Gallbladder wall thickening. Medical renal disease. Probable calculus in the renal pelvis. No hydronephrosis. CBC unremarkable. INR 1.2. Potassium 4.0, creatinine 0.76. Troponin negative 2. ProBNP 6710. Lipase 50. Liver function tests are within normal limits. Magnesium 1.7. Current home cardiac medications include Eliquis 2.5mg BID, Catapres 0.1 mg twice daily, Plavix 75 mg as directed, Zetia 10 mg daily, hydralazine 100 mg 3 times daily, Toprol-XL 100 mg daily, Nitro-Dur patch daily as needed, Entresto 24 g26 mg one twice daily. Most recent echocardiogram obtained in November 2022 revealing ejection fraction 40-45%, moderate right ventricular hypertrophy, mild right ventricular dilation, mild to moderate right atrial enlargement, mild mitral regurgitation, mild tricuspid regurgitation. The small pericardial effusion without tamponade. Cardiac catheterization history: August 2021 revealing patent stent in the LAD and left circumflex. Significant disease in the apical septum of the LAD, patent distal branch point of the obtuse marginal branch with no progression of disease. Mild disease in the RCA. Right dominance. Medical management was recommended. REVIEW OF SYSTEMS: At the time of my exam: CONSTITUTIONAL: Denies fever or chills. HEENT: Denies blurred vision, vision changes, or eye pain. Denies hemoptysis CARDIOVASCULAR: Denies chest pain. Denies orthopnea. Denies PND. Denies palpitations RESPIRATORY: Denies shortness of breath. GASTROINTESTINAL: + abdominal pain. Denies nausea or vomiting. HEMATOLOGIC: Denies bleeding disorders. GENITOURINARY: Denies any blood in urine. SKIN: Denies pruitis. Denies rash. PHYSICAL EXAM: VITAL SIGNS: Reviewed. GENERAL: Well-developed in no acute distress. HEENT: Head is normocephalic. Pupils are equal, round. Sclerae anicteric. No JVD. LUNGS: Respirations even and unlabored. Lungs diminished with crackles bilaterally HEART: Regular rate and rhythm. S1 and S2 heard. ABDOMEN: Soft. Distended. Ascites present. EXTREMITIES: No clubbing or cyanosis. Peripheral pulses intact. Bilateral lower extremity edema with Ryan wraps noted NEUROLOGIC: Awake and alert. Oriented x 3. ASSESSMENT: Acute on chronic heart failure with reduced ejection fraction, 40-45% Hypertension, uncontrolled Ascites with recent paracentesis Coronary artery disease with previous stenting Ischemic cardiomyopathy History of LV thrombus on anticoagulation Diabetes PLAN: Obtain 2-D echo to assess cardiac structure and function Resume home cardiac medications with the following changes: Increase Catapres to 0.2 mg 3 times daily Transition oral Lasix to 40 mg IV every 12 hours Continue to monitor blood pressure. Will make adjustments to patient's medication regimen as needed. Defer management of abdominal ascites to primary medicine. Hold anticoagulation and Plavix for possible paracentesis Further recommendations pending patient course Nurse practitioner note has been reviewed by physician. Signing provider agrees with the documented findings, assessment, and plan of care. Past Medical History Past Medical History: Atrial Fibrillation, Asthma, Coronary Artery Disease (CAD), Cancer, Chest Pain / Angina, Heart Failure, Diabetes Mellitus, GERD/Reflux, Hyperlipidemia, Hypertension, Myocardial Infarction (OR), Pulmonary Embolus (PE), Renal Disease, Respiratory Disorder Additional Past Medical History / Comment(s): CA- lymphoma, childhood leukemia, lymphedema, ascites Last Myocardial Infarction Date:: 04/2019 History of Any Multi-Drug Resistant Organisms: MRSA Date of last positivie culture/infection: 10/2021 MDRO Source:: dog bite Past Surgical History: Section, Heart Catheterization With Stent, Joint Replacement, Tonsillectomy, Tubal Ligation Additional Past Surgical History / Comment(s): Partial R knee replacement, PCI/stents, surgery for PE/radiation, paracentesis Past Anesthesia/Blood Transfusion Reactions: No Reported Reaction Additional Past Anesthesia/Blood Transfusion Reaction / Comment(s): Pt received blood as a child with leukemia without reaction. Date of Last Stent Placement:: 05/08/19 Past Psychological History: Anxiety, Bipolar, Depression, Schizophrenia Smoking Status: Former smoker Past Alcohol Use History: None Reported Past Drug Use History: None Reported - Past Family History Father Family Medical History: Coronary Artery Disease (CAD), Hyperlipidemia, Hypertension Additional Family Medical History / Comment(s): pins in knee, heart stents x 4. Father is Mother Family Medical History: Coronary Artery Disease (CAD), Dementia, Diabetes Mellitus, Musculoskeletal Disorder, Renal Disease Additional Family Medical History / Comment(s): Parkinson's, stents in heart, neuropathy. Medications and Allergies Home Medications Medication Instructions Recorded Confirmed Type Ezetimibe [Zetia] 10 mg PO DAILY #30 tab 02/02/21 02/13/23 Rx Metoprolol Succinate (ER) [Toprol 100 mg PO DAILY 07/29/21 02/13/23 History XL] Nitroglycerin 0.4MG/Hr Patch 1 patch TRANSDERM DAILY PRN 08/26/21 02/13/23 History [Nitro-Dur 0.4MG/Hr Patch] ALPRAZolam [Xanax] 1 mg PO BID PRN 03/14/22 02/13/23 History Albuterol Inhaler [Ventolin Hfa 1 - 2 puff INHALATION RT-QID PRN 03/14/22 02/13/23 History Inhaler] Apixaban [Eliquis] 2.5 mg PO DIRECTED 03/14/22 02/14/23 History cloNIDine HCL [Catapres] 0.1 mg PO BID 03/14/22 02/13/23 History Collagenase [Santyl Ointment] 1 applic TOPICAL DAILY 06/08/22 02/13/23 History Montelukast [Singulair] 10 mg PO HS 08/11/22 02/13/23 History Sacubitril/Valsartan [Entresto 24 1 tab PO BID 08/11/22 02/13/23 History mg-26 mg Tablet] Clopidogrel [Plavix] 75 mg PO DIRECTED 08/17/22 02/14/23 History hydrALAZINE HCL [Apresoline] 100 mg PO TID 09/27/22 02/13/23 History HYDROmorphone [Dilaudid] 4 mg PO Q6H PRN 12/05/22 02/13/23 History Pantoprazole [Protonix] 40 mg PO BID PRN 02/13/23 02/13/23 History Allergies Allergy/AdvReac Type Severity Reaction Status Date / Time azithromycin Allergy Anaphylaxis Verified 02/13/23 22:20 cephalexin [From Keflex] Allergy Rash/Hives Verified 02/13/23 22:20 clindamycin Allergy Anaphylaxis Verified 02/13/23 22:20 codeine Allergy Rash/Hives Verified 02/13/23 22:20 doxycycline Allergy Anaphylaxis Verified 02/13/23 22:20 Iodine and Iodide Containing Allergy Rash/Hives Verified 02/13/23 22:20 Produc levofloxacin [From Levaquin] Allergy Rash/Hives Verified 02/13/23 22:20 penicillin V Allergy Rash/Hives Verified 02/13/23 22:20 Penicillins Allergy Anaphylaxis Verified 02/13/23 22:20 silver Allergy Rash/Hives Verified 02/13/23 22:20 sulfamethoxazole Allergy Rash/Hives Verified 02/13/23 22:20 [From Bactrim] tramadol Allergy Rash/Hives Verified 02/13/23 22:20 trimethoprim [From Bactrim] Allergy Rash/Hives Verified 02/13/23 22:20 vancomycin Allergy Rash/Hives Verified 02/13/23 22:20 zinc Allergy Rash/Hives Verified 02/13/23 22:20 Physical Exam Vitals: Vital Signs Temp Pulse Pulse Resp BP Pulse Ox 02/14/23 10:00 75 20 158/104 99 02/14/23 09:00 96 20 156/100 98 02/14/23 07:58 97.9 F 85 20 181/125 97 02/14/23 06:20 85 23 169/106 99 02/14/23 04:09 92 16 176/120 99 02/14/23 02:46 103 H 20 183/129 99 02/14/23 02:00 107 H 18 191/133 02/14/23 01:51 104 H 20 179/118 02/14/23 01:00 105 H 28 H 197/123 02/14/23 00:00 100 28 H 195/127 02/13/23 23:30 101 H 19 178/156 98 02/13/23 22:28 95 14 197/131 98 02/13/23 21:50 103 H 02/13/23 21:43 97.5 F L 103 H 22 200/121 99 Intake and Output 02/13/23 02/14/23 02/14/23 22:59 06:59 14:59 Other: Weight 79.832 kg Results 02/13/23 22:21 02/13/23 22:21 Cardiac Enzymes 02/13/23 02/13/23 Range/Units 22:21 22:21 AST 19 (14-36) U/L Troponin I 0.030 (0.000-0.034) ng/mL Coagulation 02/13/23 Range/Units 22:21 PT 12.8 H (10.0-12.5) sec APTT 27.1 (22.0-30.0) sec CBC 02/13/23 Range/Units 22:21 WBC 6.1 (3.8-10.6) k/uL RBC 4.97 (3.80-5.40) m/uL Hgb 13.0 (11.4-16.0) gm/dL Hct 41.2 (34.0-46.0) % Plt Count 223 (150-450) k/uL Comprehensive Metabolic Panel 02/13/23 Range/Units 22:21 Sodium 138 (137-145) mmol/L Potassium 4.0 (3.5-5.1) mmol/L Chloride 105 (98-107) mmol/L Carbon Dioxide 19 L (22-30) mmol/L BUN 17 (7-17) mg/dL Creatinine 0.76 (0.52-1.04) mg/dL Glucose 115 H (74-99) mg/dL Calcium 9.6 (8.4-10.2) mg/dL AST 19 (14-36) U/L ALT 11 (4-34) U/L Alkaline Phosphatase 95 (38-126) U/L Total Protein 7.4 (6.3-8.2) g/dL Albumin 4.1 (3.5-5.0) g/dL Current Medications Generic Name Dose Route Start Last Admin Trade Name Freq PRN Reason Stop Dose Admin Alprazolam 1 mg 02/14/23 10:39 Alprazolam 1 Mg Tab PO BID PRN Anxiety Clonidine 0.1 mg 02/14/23 21:00 Clonidine Hcl 0.1 Mg Tab PO BID [facility] Clopidogrel Bisulfate 75 mg 02/14/23 10:45 Clopidogrel 75 Mg Tab PO DIRECTED [facility] Ezetimibe 10 mg 02/15/23 09:00 Ezetimibe 10 Mg Tab PO DAILY [facility] Furosemide 40 mg 02/14/23 09:00 02/14/23 08:43 Furosemide 40 Mg Tab PO 40 mg DAILY [facility] Administration Hydralazine HCl 100 mg 02/14/23 16:00 Hydralazine Hcl 50 Mg Tab PO TID [facility] Hydromorphone HCl 4 mg 02/14/23 10:39 Hydromorphone 2 Mg Tab PO Q6H PRN Pain Sodium Chloride 1,000 mls @ 20 mls/hr 02/14/23 00:15 02/14/23 00:24 Saline 0.9% IV 20 mls/hr .Q24H [facility] Administration Metoprolol Succinate 100 mg 02/15/23 09:00 Metoprolol Succinate (Er) 100 Mg Tab.Er.24h PO DAILY [facility] Montelukast Sodium 10 mg 02/14/23 21:00 Montelukast 10 Mg Tab PO HS [facility] Morphine Sulfate 4 mg 02/14/23 00:02 02/14/23 08:02 Morphine Sulfate 4 Mg/Ml Syringe IV 4 mg Q4HR PRN Administration Severe Pain (Scale 7 to 10) Naloxone HCl 0.2 mg 02/14/23 00:02 Naloxone 0.4 Mg/Ml 1 Ml Vial IV Q2M PRN Opioid Reversal Nitroglycerin 1 patch 02/14/23 10:39 Nitroglycerin 0.4mg/Hr Patch TRANSDERM DAILY PRN Chest Pain Ondansetron HCl 4 mg 02/14/23 00:02 02/14/23 08:01 Ondansetron 4 Mg/2 Ml Vial IVP 4 mg Q8HR PRN Administration Nausea And Vomiting Pantoprazole Sodium 40 mg 02/14/23 10:39 Pantoprazole 40 Mg Tablet PO BID PRN acid reflux Sacubitril/Valsartan 1 each 02/14/23 10:45 Sacubitril/Valsartan 24 Mg-26 Mg Tablet PO BID [facility] Spironolactone 100 mg 02/14/23 09:00 02/14/23 08:43 Spironolactone 25 Mg Tab PO 100 mg DAILY [facility] Administration Intake and Output 02/13/23 02/14/23 02/14/23 22:59 06:59 14:59 Other: Weight 79.832 kg 02/13/23 22:21 02/13/23 22:21
[2023-02-14] MEDS: hydrALAZINE HCL 50 MG TAB PO SCH ×3 (14:41→22:16)
[2023-02-14] MEDS: FUROSEMIDE 10 MG/ML 4 ML VIAL IV SCH ×2 (14:41→20:37)
[2023-02-14] MEDS: HYDROmorphone 2 MG TAB PO PRN (15:34)
[2023-02-14] MEDS: cloNIDine HCL 0.1 MG TAB PO SCH ×2 (15:44→22:17)
[2023-02-14] MEDS ORDERED: hydrALAZINE HCL 50 MG TAB PO SCH (16:00)
[2023-02-14] MEDS: MONTELUKAST 10 MG TAB PO SCH (20:36)
--- NOTE | 2023-02-14 21:23 | HP ---
HISTORY AND PHYSICAL CHIEF COMPLAINT: Abdominal pain. HISTORY OF PRESENT ILLNESS: This is another admission for this 42-year-old white female with end-stage cardiomyopathy and congestive heart failure. She has been accumulating ascitic fluid lately and was due to come in the next day for paracentesis, but pain grew worse, and she came into the emergency room. She is also feeling slightly short of breath. She has had no fever, chills, chest pain, nausea, vomiting, etc. Past medical history, family history, and personal and social histories are all otherwise unremarkable and unchanged from her recent admitting and discharge summaries. She does not smoke. She is a candidate for heart transplant. I have encouraged her to go to [place] to the Transplant Clinic. We just learned that an appointment was established, and [place] called her to give her the information as to when to come, and she turned down the consult. REVIEW OF SYSTEMS: She has had no headaches, change in vision or hearing, chest pain, nausea, vomiting, etc. PHYSICAL EXAMINATION: VITAL SIGNS: Blood pressure is elevated. HEAD, EARS, EYES, NOSE, MOUTH, AND THROAT: Normal. CHEST: Demonstrates poor breath sounds at the bases. CARDIAC: Demonstrates sinus tachycardia. ABDOMEN: Massively distended with ascites and slightly tender. EXTREMITIES: Reveal her dependent edema and stasis disease with Ryan wraps from the knees on down bilaterally. NEUROLOGIC: She is intact. DIAGNOSES: She is admitted to the hospital with diagnoses: 1. Intractable ascites. 2. Abdominal pain. 3. Uncontrolled hypertension. 4. Cardiomyopathy. 5. Congestive heart failure with preserved ejection fraction. 6. Lower extremity stasis disease with cellulitis and necrotic ulcers. PLAN: 1. Bedrest. 2. IV fluids. 3. Control hypertension. 4. Paracentesis. 5. Since the patient has turned down the referral to the Cardiac Transplant Team in [place], we will continue to provide her as much care locally as we can. MMODL / IJN: [id number] /
[2023-02-14 22:50] LABS: Hepatitis A Antibody IgM Nonreactive; Hepatitis B Core IgM Nonreactive; Hepatitis B Surface Antigen Nonreactive; Hepatitis C IgG Antibody Nonreactive
[2023-02-15] MEDS: MORPHINE SULFATE 4 MG/ML SYRINGE IV PRN (01:20)
[2023-02-15] MEDS: ALPRAZolam 1 MG TAB PO PRN ×2 (02:34→11:31)
[2023-02-15] MEDS: HYDROmorphone 2 MG TAB PO PRN ×2 (03:42→10:21)
--- NOTE | 2023-02-15 07:20 | CA ---
Transthoracic Echo Report Name: Petty Blackwood Age: 42 Gender: F : 1980 Exam Date: 02/14/2023 16:33 Exam Location: [facility] Ht (in): 62 Wt (lb): 176 Ordering Physician: Yudelka Linares Attending/Referring Phys: [id number], Milagros Supervisor [employer]ing [employer] Maury Muniz Procedure CPT: Indications: LVF Cardiac Hx: Technical Quality: Fair Contrast 1: Total Dose (mL): Contrast 2: Total Dose (mL): MEASUREMENTS (Male / Female) Normal Values 2D ECHO LV Diastolic Diameter PLAX 4.4 cm 4.2 - 5.9 / 3.9 - 5.3 cm LV Systolic Diameter PLAX 3.7 cm IVS Diastolic Thickness 1.4 cm 0.6 - 1.0 / 0.6 - 0.9 cm LVPW Diastolic Thickness 1.5 cm 0.6 - 1.0 / 0.6 - 0.9 cm LV Relative Wall Thickness 0.6 RV Internal Dim ED PLAX 3.5 cm LV Diastolic Volume MOD BP 80.2 cm??? 67 - 155 / 56 - 104 cm??? LV Systolic Volume MOD BP 45.6 cm??? 22 - 58 / 19 - 49 cm??? LV Ejection Fraction MOD BP 43.1 % >= 55 % LV Diastolic Volume MOD 4C 71.5 cm??? LV Systolic Volume MOD 4C 38.3 cm??? LV Ejection Fraction MOD 4C 46.5 % LV Diastolic Length 4C 8.3 cm LV Systolic Length 4C 8.0 cm LV Diastolic Volume MOD 2C 86.6 cm??? LV Systolic Volume MOD 2C 54.2 cm??? LV Ejection Fraction MOD 2C 37.4 % LV Diastolic Length 2C 7.9 cm LV Systolic Length 2C 7.9 cm DOPPLER Mitral E Point Velocity 97.7 cm/s Mitral A Point Velocity 34.1 cm/s Mitral E to A Ratio 2.9 MV Deceleration Time 252.2 ms MV E' Velocity 7.3 cm/s Mitral E to MV E' Ratio 13.3 FINDINGS Left Ventricle Left ventricular ejection fraction is estimated at 30_ %. Right Ventricle Right Atrium Left Atrium Mitral Valve Aortic Valve Tricuspid Valve Pulmonic Valve Pericardium Aorta CONCLUSIONS Severe concentric left ventricular hypertrophy with severe LV systolic dysfunction with an ejection fraction of 30% Previewed by: Dr. Hans Mullen MD (Electronically Signed) Final Date: 15 February 2023 07:19
[2023-02-15 09:21] LABS: ALT 11 U/L (4-34); African American GFR (CKD) 58 (>60 ml/min/1.73 sqM); Albumin/Globulin Ratio 1.1; Anion Gap 12 mmol/L; Blood Urea Nitrogen 25 mg/dL (7-17); Calcium 9.4 mg/dL (8.4-10.2); Carbon Dioxide 25 mmol/L (22-30); Chloride 101 mmol/L (98-107); Globulin 3.6 g/dL; Glucose 104 mg/dL (74-99); Lipase 119 U/L (23-300); Magnesium 1.8 mg/dL (1.6-2.3); Non-African American GFR(CKD) 50 (>60 ml/min/1.73 sqM); Potassium 4.6 mmol/L (3.5-5.1); Sodium 138 mmol/L (137-145); Total Bilirubin 1.2 mg/dL (0.2-1.3)
[2023-02-15 09:31] LABS: Basophils % (A) 0 %; Eosinophils # (A) 0.2 k/uL (0-0.7); Eosinophils % (A) 3 %; HCT 46.9 % (34.0-46.0); HGB 14.5 gm/dL (11.4-16.0); Hypochromasia Moderate; Lymphocytes # (A) 1.2 k/uL (1.0-4.8); Lymphocytes % (A) 22 %; MCHC 30.9 g/dL (31.0-37.0); MCV 83.9 fL (80.0-100.0); Mean Platelet Volume 7.9; Monocytes # (A) 0.3 k/uL (0-1.0); Monocytes % (A) 6 %; Neutrophils # (A) 3.6 k/uL (1.3-7.7); Neutrophils % (A) 66 %; Platelet Count 294 k/uL (150-450); RBC 5.59 m/uL (3.80-5.40); RDW 14.8 % (11.5-15.5); WBC 5.5 k/uL (3.8-10.6)
[2023-02-15 09:53] LABS: AST 30 U/L (14-36); Alkaline Phosphatase 67 U/L (38-126); Phosphorus 4.9 mg/dL (2.5-4.5); Total Protein 7.6 g/dL (6.3-8.2)
[2023-02-15] MEDS: METOPROLOL SUCCINATE (ER) 100 MG TAB.ER.24H PO SCH (10:04)
[2023-02-15] MEDS: SACUBITRIL/VALSARTAN 24 MG-26 MG TABLET PO SCH ×2 (10:04→19:56)
[2023-02-15] MEDS: SPIRONOLACTONE 25 MG TAB PO SCH (10:05)
[2023-02-15] MEDS: hydrALAZINE HCL 50 MG TAB PO SCH ×3 (10:05→19:56)
[2023-02-15] MEDS: FUROSEMIDE 10 MG/ML 4 ML VIAL IV SCH (10:05)
[2023-02-15] MEDS: EZETIMIBE 10 MG TAB PO SCH (10:05)
[2023-02-15] MEDS: cloNIDine HCL 0.1 MG TAB PO SCH ×3 (10:05→19:56)
--- NOTE | 2023-02-15 12:58 | P.PN ---
Subjective Progress Note Date: 02/15/23 HISTORY OF PRESENT ILLNESS: This is a 42-year-old female with a past medical history of diabetes, hypert ension, coronary artery disease with previous stenting, ischemic cardiomyopathy, hyperlipidemia, LV thrombus on anticoagulation, and ascites with previous paracentesis. Patient follows with a steward/stewardess economy class in [place]. Dr. Diop. We have been asked to see the patient in consultation for CAD, heart failure, ascites likely cardiac. Patient is seen today in the emergency center waiting for a bed on the [facility] floor. Patient had a recent hospitalization in November of this year which time she was treated for acute on chronic reduced ejection fraction heart failure. Patient presented to the hospital due to chest pain, abdominal pain, shortness of breath. She was due for paracentesis that was scheduled for outpatient today. Patient states that her PCP has sent her to [facility] and she states she was there had 1.2 L taken off and was sent home. She states that no one has told her why she has the ascites. She denies any history of alcohol abuse, no smoking history and no drug abuse. Patient is status post hydralazine 100 mg oral once and Toprol-XL 100 mg once. Initial bl ood pressure 200/121 and heart rate in the low 100s. Blood pressure at time of evaluation is 180/103. EKG reveals sinus rhythm with evidence of previous anterior wall [place] and biatrial enlargement, no signs of acute ischemia Ultrasound of the liver revealed ascites. Gallbladder wall thickening. Medical renal disease. Probable calculus in the renal pelvis. No hydronephrosis. CBC unremarkable. INR 1.2. Potassium 4.0, creatinine 0.76. Troponin negative 2. ProBNP 6710. Lipase 50. Liver function tests are within normal limits. Magnesium 1.7. Current home cardiac medications include Eliquis 2.5mg BID, Catapres 0.1 mg twice daily, Plavix 75 mg as directed, Zetia 10 mg daily, hydralazine 100 mg 3 times daily, Toprol-XL 100 mg daily, Nitro-Dur patch daily as needed, Entresto 24 g26 mg one twice daily. Most recent echocardiogram obtained in November 2022 revealing ejection fraction 40-45%, moderate right ventricular hypertrophy, mild right ventricular dilation, mild to moderate right atrial enlargement, mild mitral regurgitation, mild tricuspid regurgitation. The small pericardial effusion without tamponade. Cardiac catheterization history: August 2021 revealing patent stent in the LAD and left circumflex. Significant disease in the apical septum of the LAD, patent distal branch point of the obtuse marginal branch with no progression of disease. Mild disease in the RCA. Right dominance. Medical management was recommended. 02/15 Patient is seen today on the observation unit. She states she is feeling better in general. She is scheduled for paracentesis today. She has been on IV Lasix 40 mg every 12 hours. Vital signs have been stable. Repeat BUN 25 creatinine 1 .31 and potassium 4.6. Echocardiogram reveals severe concentric left hypertrophy with severe LV systolic dysfunction with EF of 30%. Echocardiogram revealed with the patient. PHYSICAL EXAM: VITAL SIGNS: Reviewed. GENERAL: Well-developed in no acute distress. HEENT: Head is normocephalic. Pupils are equal, round. Sclerae anicteric. No JVD. LUNGS: Respirations even and unlabored. Lungs diminished with crackles bilaterally HEART: Regular rate and rhythm. S1 and S2 heard. ABDOMEN: Soft. Distended. Ascites present. EXTREMITIES: No clubbing or cyanosis. Peripheral pulses intact. Bilateral lower extremity edema with Ryan wraps noted NEUROLOGIC: Awake and alert. Oriented x 3. ASSESSMENT: Acute on chronic heart failure with reduced ejection fraction, 40-45% Hypertension, uncontrolled Ascites with recent paracentesis Coronary artery disease with previous stenting Ischemic cardiomyopathy History of LV thrombus on anticoagulation Diabetes PLAN: Continue home cardiac medications with the following changes: Increase Catapres to 0.2 mg 3 times daily Continue Lasix 40 mg IV every 12 hours Continue to monitor blood pressure. Will make adjustments to patient's medication regimen as needed. Defer management of abdominal ascites to primary medicine. Hold anticoagulation and Plavix for possible paracentesis At the time of discharge, patient will be following up with [facility]. Nurse practitioner note has been reviewed by physician. Signing provider agrees with the documented findings, assessment, and plan of care. Objective - Vital Signs Vital signs: Vital Signs Temp 98.1 F 02/15/23 07:55 Pulse 64 02/15/23 07:55 Resp 14 02/15/23 07:55 BP 128/76 02/15/23 07:55 Pulse Ox 99 02/15/23 07:55 FiO2 - Labs CBC & Chem 7: 02/15/23 08:51 02/15/23 08:51 Labs: Abnormal Lab Results - Last 24 Hours (Table) 02/15/23 02/15/23 Range/Units 08:51 08:51 RBC 5.59 H (3.80-5.40) m/uL Hct 46.9 H (34.0-46.0) % MCHC 30.9 L (31.0-37.0) g/dL BUN 25 H (7-17) mg/dL Creatinine 1.31 H (0.52-1.04) mg/dL Glucose 104 H (74-99) mg/dL Phosphorus 4.9 H (2.5-4.5) mg/dL
[2023-02-15] MEDS: ALBUMIN HUMAN 25% 50 ML in EMPTY BAG 1 BAG IVPB SCH ×4 (14:06→14:44)
[2023-02-15] MEDS ORDERED: SODIUM CHLORIDE 0.9% 250 ML IV ONE (16:52)
--- NOTE | 2023-02-15 17:03 | P.PN ---
Subjective Progress Note Date: 02/15/23 Principal diagnosis: Ascites This is a 42-year-old female with multiple comorbidities including atrial fibrillation, coronary artery disease, diabetes mellitus, heart failure, pul monary embolism, chronic kidney disease, chronic lower extremity wounds, and ascites which she believes is due to her heart failure. Patient was diagnosed with ascites 5-6 months ago she has not followed with a systems requirements planner. Dr. Sena her PCP has been managing her ascites. Currently not on any diuretics. She has had 3 paracentesis here last one done 12/07/2022 with 11.6 L of fluid removed. In September of this year she had paracentesis with fluid studies with a negative cytology and protein greater than 4000 likely related to heart failure. Unfortunately that fluid study did not have fluid albumin. Patient is scheduled today for paracentesis with fluid studies. Patient states she's had shortness of breath and that she has been gurgling on fluids, chest pain and abdominal distention. She states that she was 30 scheduled for outpatient paracentesis. Patient does take a look well she states last dose was on Monday. Bilateral lower extremities with swelling and chronic wounds which he has been managing with the wound care center in [facility]. States that she has seen a hospitality internship in [facility] but does not have a regular hospitality internship following her. She did state that she went down to [facility] and was supposed to see a hospitality internship they are however she states appointment was canceled and had never seen the hospitality internship. She denies any previous history of liver disease, no history of alcoholism in the past or currently. Denies any history of hepatitis. LFTs are all normal. WBC 6.1 hemoglobin 13 platelet count 223,019 or 1.2 sodium 138 potassium 4.0B 117 creatinine 0.76 0.7 total bilirubin 1.3 AST 19 ALT 11 alkaline phosphatase 95 ammonia less than 9 BNP 6710 amylase 38 lipase 50 02/15/2023 Patient seen and examined today as a follow-up. She is scheduled for paracentesis with fluid studies today. Patient had echocardiogram that reported severe concentric left ventricular hypertrophy with severe LV systolic dysfunction with an EF fraction of 30%. The patient denies any abdominal pain, nausea or vomiting. Denies any chest pain but states she has some shortness of breath. Acute hepatitis panel nonreactive. Liver ultrasound reports ascites, gallbladder wall thickening medical renal disease probable calculus within the renal pelvis but no lamine hydronephrosis. Overall normal liver. Objective - Vital Signs Vital signs: Vital Signs Temp 96.9 F L 02/15/23 16:00 Pulse 56 L 02/15/23 16:00 Resp 12 02/15/23 16:00 BP 85/51 02/15/23 16:00 Pulse Ox 99 02/15/23 16:00 FiO2 Intake & Output 02/14/23 02/15/23 02/15/23 18:59 06:59 18:59 Intake Total 240 Balance 240 Intake: Oral 240 - Exam General appearance: The patient is alert, oriented, appears in no acute distress. HET: Head is normocephalic and atraumatic. Conjunctiva pink. Sclera anicteric. Neck: Supple without lymphadenopathy. Abdomen: Soft, distended, with ascites. No guarding or rigidity. Extremities: Normal skin color and turgor. No pedal edema Skin: No rashes, no jaundice Neurological: No focal deficits. Alert and oriented. - Labs CBC & Chem 7: 02/15/23 08:51 02/15/23 08:51 Labs: Abnormal Lab Results - Last 24 Hours (Table) 02/15/23 02/15/23 Range/Units 08:51 08:51 RBC 5.59 H (3.80-5.40) m/uL Hct 46.9 H (34.0-46.0) % MCHC 30.9 L (31.0-37.0) g/dL BUN 25 H (7-17) mg/dL Creatinine 1.31 H (0.52-1.04) mg/dL Glucose 104 H (74-99) mg/dL Phosphorus 4.9 H (2.5-4.5) mg/dL Assessment and Plan (1) Ascites Narrative/Plan: 42-year-old recently diagnosed with ascites 5-6 months ago with multiple comorbidities including coronary artery disease, diabetes, atrial fibrillation, heart failure, chronic lower extremity edema with wounds presented for chest pain and shortness of breath. Patient states that she is his hand 3 paracentesis in the past with fluid studies. Cytology negative, elevated protein of 4180 suggestive of likely cardiac source. No fluid albumin collected. Scheduled for paracentesis today and will order fluid albumin and protein. She is not currently on any diuretics, states that she was taken off of them because they did not work. She is not following with a hospitality internship and has been managed by her PCP Dr. Sena. States that she has had an appointment down at [facility], status post follow with hospitality internship there however appointment was canceled. Again patient has no history of liver dise ase, LFTs are all normal, no history of drinking, will get ultrasound of the liver and order hepatitis panel. Will need to also consider possibility of nonalcoholic fatty liver disease. Liver ultrasound ordered. Ascites possibly related to coronary artery disease and heart failure especially with the elevated protein. We'll consult with cardiology. Patient to undergo paracentesis with fluid studies today. Echocardiogram reports EF of 30% again likely ascites related to underlying heart failure. Current Visit: Yes Status: Acute Code(s): R18.8 - OTHER ASCITES SNOMED Code(s): 531127341 (2) Heart failure Narrative/Plan: Echocardiogram reported severe concentric left ventricular hypertrophy with severe LV systolic dysfunction with an ejection fraction of 30% Current Visit: No Status: Acute Code(s): I50.9 - HEART FAILURE, UNSPECIFIED SNOMED Code(s): 55164516 (3) Diabetes mellitus Current Visit: Yes Status: Acute Code(s): E11.9 - TYPE 2 DIABETES MELLITUS WITHOUT COMPLICATIONS SNOMED Code(s): 77472029 (4) Coronary artery disease Current Visit: Yes Status: Acute Code(s): I25.10 - ATHSCL HEART DISEASE OF [place] CORONARY ARTERY W/O ANG PCTRS SNOMED Code(s): 52849974 (5) Chest pain Current Visit: Yes Status: Acute Code(s): R07.9 - CHEST PAIN, UNSPECIFIED SNOMED Code(s): 60526125 (6) SOB (shortness of breath) Current Visit: Yes Status: Acute Code(s): R06.02 - SHORTNESS OF BREATH SNOMED Code(s): 742192867 (7) Atrial fibrillation Current Visit: No Status: Acute Code(s): I48.91 - UNSPECIFIED ATRIAL FIBRILLATION SNOMED Code(s): 25913688 (8) Bilateral lower extremity edema Current Visit: No Status: Acute Code(s): R60.0 - LOCALIZED EDEMA SNOMED Code(s): 351613772 (9) Hypertension Current Visit: No Status: Acute Code(s): I10 - ESSENTIAL (PRIMARY) HYPERTENSION SNOMED Code(s): 63133050 Plan: 1. Continue symptomatic supportive care 2. Paracentesis ordered, fluid albumin and protein ordered 3. Start Lasix 40 mg daily and Aldactone 100 mg daily 4. Recommend low sodium diet 5. Consult to cardiology, patient has history coronary artery disease, heart failure with ascites likely secondary to heart failure 6. Acute hepatitis panel ordered, all nonreactive 7. No further workup indicated from gastroenterology Thank you for this consultation, we will continue to follow. Dr. Brigitte Mullen I agree with the dictator's note, documented as a scribe by Mame Donovan.
[2023-02-15] MEDS: MONTELUKAST 10 MG TAB PO SCH (20:32)
--- NOTE | 2023-02-15 23:25 | PN ---
PROGRESS NOTE CHIEF COMPLAINT: Acute congestive heart failure with ascites. HISTORY OF PRESENT ILLNESS: At the present time, this lady is lightheaded and hypotensive. Blood pressure is 85/51, and she just underwent paracentesis for a large quantity of fluid. She recently had another echocardiogram, which reveals her ejection fraction is down to 30%. She was being referred to [place] to the Heart Transplant Department. Apparently, they called her for an appointment and she stated that she did not want to go. PHYSICAL EXAMINATION: CHEST: Demonstrates decreased breath sounds with rales at the bases. CARDIAC: Normal. ABDOMEN: Much less protuberant. EXTREMITIES: Dressed in Ryan wraps. IMPRESSION: 1. Cardiomyopathy with congestive heart failure with reduced ejection fraction. 2. Ascites. 3. Chronic passive congestion of the liver. 4. Lower extremity venous stasis disease with cellulitis and ulcers. PLAN: IV fluid bolus and probably home tomorrow if her blood pressure recovers. MMODL / IJN: [id number] /
[2023-02-16] MEDS: HYDROmorphone 2 MG TAB PO PRN ×3 (01:29→16:32)
[2023-02-16] MEDS: FUROSEMIDE 10 MG/ML 4 ML VIAL IV SCH ×3 (02:08→20:41)
[2023-02-16] MEDS: SODIUM CHLORIDE 0.9% 1,000 ML IV SCH (03:03)
[2023-02-16 04:28] LABS: Amylase, Fluid Source Ascities; Amylase,Body Fluid 19 U/L; Glucose, BF Source Ascities; Glucose, Body Fluid 147 mg/dL; LDH, Body Fluid Source Ascities; T. Protein, Body Fluid Source Ascities; Total Protein, Body Fluid >3600 mg/dL
[2023-02-16 04:39] LABS: Albumin, Fluid Source Ascities
[2023-02-16 05:13] LABS: Appearance,BF Clear (Clear)
[2023-02-16] MEDS: cloNIDine HCL 0.1 MG TAB PO SCH (11:09)
[2023-02-16] MEDS: METOPROLOL SUCCINATE (ER) 100 MG TAB.ER.24H PO SCH (11:27)
[2023-02-16] MEDS: hydrALAZINE HCL 50 MG TAB PO SCH (11:27)
[2023-02-16] MEDS: SPIRONOLACTONE 25 MG TAB PO SCH (11:29)
[2023-02-16] MEDS: SACUBITRIL/VALSARTAN 24 MG-26 MG TABLET PO SCH ×2 (11:30→20:42)
[2023-02-16] MEDS: EZETIMIBE 10 MG TAB PO SCH (11:31)
--- NOTE | 2023-02-16 13:16 | P.PN ---
Subjective Progress Note Date: 02/16/23 HISTORY OF PRESENT ILLNESS: This is a 42-year-old female with a past medical history of diabetes, hypert ension, coronary artery disease with previous stenting, ischemic cardiomyopathy, hyperlipidemia, LV thrombus on anticoagulation, and ascites with previous paracentesis. Patient follows with a car shifter in [place]. Dr. Diop. We have been asked to see the patient in consultation for CAD, heart failure, ascites likely cardiac. Patient is seen today in the emergency center waiting for a bed on the [facility] floor. Patient had a recent hospitalization in November of this year which time she was treated for acute on chronic reduced ejection fraction heart failure. Patient presented to the hospital due to chest pain, abdominal pain, shortness of breath. She was due for paracentesis that was scheduled for outpatient today. Patient states that her PCP has sent her to [facility] and she states she was there had 1.2 L taken off and was sent home. She states that no one has told her why she has the ascites. She denies any history of alcohol abuse, no smoking history and no drug abuse. Patient is status post hydralazine 100 mg oral once and Toprol-XL 100 mg once. Initial bl ood pressure 200/121 and heart rate in the low 100s. Blood pressure at time of evaluation is 180/103. EKG reveals sinus rhythm with evidence of previous anterior wall [place] and biatrial enlargement, no signs of acute ischemia Ultrasound of the liver revealed ascites. Gallbladder wall thickening. Medical renal disease. Probable calculus in the renal pelvis. No hydronephrosis. CBC unremarkable. INR 1.2. Potassium 4.0, creatinine 0.76. Troponin negative 2. ProBNP 6710. Lipase 50. Liver function tests are within normal limits. Magnesium 1.7. Current home cardiac medications include Eliquis 2.5mg BID, Catapres 0.1 mg twice daily, Plavix 75 mg as directed, Zetia 10 mg daily, hydralazine 100 mg 3 times daily, Toprol-XL 100 mg daily, Nitro-Dur patch daily as needed, Entresto 24 g26 mg one twice daily. Most recent echocardiogram obtained in November 2022 revealing ejection fraction 40-45%, moderate right ventricular hypertrophy, mild right ventricular dilation, mild to moderate right atrial enlargement, mild mitral regurgitation, mild tricuspid regurgitation. The small pericardial effusion without tamponade. Cardiac catheterization history: August 2021 revealing patent stent in the LAD and left circumflex. Significant disease in the apical septum of the LAD, patent distal branch point of the obtuse marginal branch with no progression of disease. Mild disease in the RCA. Right dominance. Medical management was recommended. 02/15 Patient is seen today on the observation unit. She states she is feeling better in general. She is scheduled for paracentesis today. She has been on IV Lasix 40 mg every 12 hours. Vital signs have been stable. Repeat BUN 25 creatinine 1 .31 and potassium 4.6. Echocardiogram reveals severe concentric left hypertrophy with severe LV systolic dysfunction with EF of 30%. Echocardiogram revealed with the patient. 02/16 Patient is seen again today on the observation unit. Last night she had a drop in her blood pressure and cardiology was contacted, blood pressure medications were held. She did receive nighttime Lasix daily until 2 AM. This morning, blood pressure is 112/66. Patient has been maintained on clonidine 0.2 mg 3 dane es daily, Lasix 40 mg IV every 12 hours, hydralazine 100 mg 3 times daily, Toprol-XL 100 mg daily, Entresto 2426 milligrams twice daily, Aldactone 100 mg daily. She is status post paracentesis. PHYSICAL EXAM: VITAL SIGNS: Reviewed. GENERAL: Well-developed in no acute distress. HEENT: Head is normocephalic. Pupils are equal, round. Sclerae anicteric. No JVD. LUNGS: Respirations even and unlabored. Lungs diminished with crackles bilaterally HEART: Regular rate and rhythm. S1 and S2 heard. ABDOMEN: Soft. Distended. Ascites present. EXTREMITIES: No clubbing or cyanosis. Peripheral pulses intact. Bilateral lower extremity edema with Ryan wraps noted NEUROLOGIC: Awake and alert. Oriented x 3. ASSESSMENT: Acute on chronic heart failure with reduced ejection fraction, 40-45% Hypertension, uncontrolled Hypotension Ascites post paracentesis 02/16 Coronary artery disease with previous stenting Ischemic cardiomyopathy History of LV thrombus on anticoagulation Diabetes PLAN: The following changes to blood pressure medications were made: Discontinue Catapres, decrease hydralazine to 25 mg 3 times daily Continue other cardiac medications Continue Lasix 40 mg IV every 12 hours Continue to monitor blood pressure. Will make adjustments to patient's medication regimen as needed. Resume anticoagulation and Plavix for possible paracentesis once cleared by IR At the time of discharge, patient will be following up with [facility]. Nurse practitioner note has been reviewed by physician. Signing provider agrees with the documented findings, assessment, and plan of care. Objective - Vital Signs Vital signs: Vital Signs Temp 97.8 F 02/16/23 07:00 Pulse 59 L 02/16/23 07:00 Resp 16 02/16/23 07:00 BP 112/66 02/16/23 08:00 Pulse Ox 100 02/16/23 07:00 FiO2 Intake & Output 02/15/23 02/16/23 02/16/23 18:59 06:59 18:59 Intake Total 240 Balance 240 Weight 79.832 kg Intake: Oral 240 Other: Voiding Method Toilet # Voids 2 4 # Bowel Movements 0 - Labs CBC & Chem 7: 02/15/23 08:51 02/15/23 08:51 Labs: Abnormal Lab Results - Last 24 Hours (Table) 02/15/23 02/15/23 Range/Units 08:51 08:51 RBC 5.59 H (3.80-5.40) m/uL Hct 46.9 H (34.0-46.0) % MCHC 30.9 L (31.0-37.0) g/dL BUN 25 H (7-17) mg/dL Creatinine 1.31 H (0.52-1.04) mg/dL Glucose 104 H (74-99) mg/dL Phosphorus 4.9 H (2.5-4.5) mg/dL
[2023-02-16] MEDS: METOPROLOL SUCCINATE (ER) 25 MG TAB.ER.24H PO SCH (13:22)
[2023-02-16] MEDS: hydrALAZINE HCL 25 MG TAB PO SCH ×2 (13:22→20:41)
--- NOTE | 2023-02-16 13:30 | US ---
Ultrasound-guided paracentesis. DATE OF EXAM: 02/15/2023 CLINICAL HISTORY: Ascites The procedure was discussed with the patient. The risks, complications, benefits, and alternatives we re discussed and any questions were answered. Informed consent was obtained. The patient was placed s upine on the ultrasound table and prepped and draped in the usual sterile fashion. All elements of maximal barrier technique were utilized. Under ultrasound guidance, access into the right lower quadrant was obtained, via the paracentesis catheter system and direct ultrasound guidanc e. Approximately 10.1 liters of straw-colored fluid was removed. The patient was stable throughout the p rocedure and remained stable upon discharge from Department of Radiology. IMPRESSION: Successful paracentesis under ultrasound guidance.
--- NOTE | 2023-02-16 14:30 | P.PN ---
Subjective Progress Note Date: 02/16/23 Principal diagnosis: Ascites This is a 42-year-old female with multiple comorbidities including atrial fibrillation, coronary artery disease, diabetes mellitus, heart failure, pul monary embolism, chronic kidney disease, chronic lower extremity wounds, and ascites which she believes is due to her heart failure. Patient was diagnosed with ascites 5-6 months ago she has not followed with a rn palliative. Dr. Sena her PCP has been managing her ascites. Currently not on any diuretics. She has had 3 paracentesis here last one done 12/07/2022 with 11.6 L of fluid removed. In September of this year she had paracentesis with fluid studies with a negative cytology and protein greater than 4000 likely related to heart failure. Unfortunately that fluid study did not have fluid albumin. Patient is scheduled today for paracentesis with fluid studies. Patient states she's had shortness of breath and that she has been gurgling on fluids, chest pain and abdominal distention. She states that she was 30 scheduled for outpatient paracentesis. Patient does take a look well she states last dose was on Monday. Bilateral lower extremities with swelling and chronic wounds which he has been managing with the wound care center in [facility]. States that she has seen a data warehouse specialist in [facility] but does not have a regular data warehouse specialist following her. She did state that she went down to [facility] and was supposed to see a data warehouse specialist they are however she states appointment was canceled and had never seen the data warehouse specialist. She denies any previous history of liver disease, no history of alcoholism in the past or currently. Denies any history of hepatitis. LFTs are all normal. WBC 6.1 hemoglobin 13 platelet count 223,019 or 1.2 sodium 138 potassium 4.0B 117 creatinine 0.76 0.7 total bilirubin 1.3 AST 19 ALT 11 alkaline phosphatase 95 ammonia less than 9 BNP 6710 amylase 38 lipase 50 02/15/2023 Patient seen and examined today as a follow-up. She is scheduled for paracentesis with fluid studies today. Patient had echocardiogram that reported severe concentric left ventricular hypertrophy with severe LV systolic dysfunction with an EF fraction of 30%. The patient denies any abdominal pain, nausea or vomiting. Denies any chest pain but states she has some shortness of breath. Acute hepatitis panel nonreactive. Liver ultrasound reports ascites, gallbladder wall thickening medical renal disease probable calculus within the renal pelvis but no lamine hydronephrosis. Overall normal liver. 02/16/2023 Patient seen and examined today as a follow-up. Yesterday she underwent paracentesis. Patient is unclear how much fluid they were able to pull up but she states she is feeling much better. Fluid studies were consistent with portal hypertension however due to the elevated fluid protein likely related to heart failure. Patient is without any major complaints at this time. Denies any shortness of breath or chest pain. Just concerned with some difficulty with urinating at home but states she is urinating fine now with diuretics. Objective - Vital Signs Vital signs: Vital Signs Temp 97.5 F L 02/16/23 13:06 Pulse 60 02/16/23 13:06 Resp 14 02/16/23 13:06 BP 111/68 02/16/23 13:06 Pulse Ox 100 02/16/23 13:06 FiO2 Intake & Output 02/15/23 02/16/23 02/16/23 18:59 06:59 18:59 Intake Total 240 1051 Balance 240 1051 Weight 79.832 kg Intake: Oral 240 1051 Other: Voiding Method Toilet # Voids 2 4 # Bowel Movements 0 - Exam General appearance: The patient is alert, oriented, appears in no acute distress. HET: Head is normocephalic and atraumatic. Conjunctiva pink. Sclera anicteric. Neck: Supple without lymphadenopathy. Abdomen: Soft, nontender, nondistended. No guarding or rigidity. Extremities: Normal skin color and turgor. . Skin: No rashes, no jaundice Neurological: No focal deficits. Alert and oriented. - Labs CBC & Chem 7: 02/15/23 08:51 02/15/23 08:51 Labs: Microbiology - Last 24 Hours (Table) 02/15/23 13:30 Gram Stain - Preliminary Ascites Fluid Assessment and Plan (1) Ascites Narrative/Plan: 42-year-old recently diagnosed with ascites 5-6 months ago with multiple comorbidities including coronary artery disease, diabetes, atrial fibrillation, heart failure, chronic lower extremity edema with wounds presented for chest pain and shortness of breath. Patient states that she is his hand 3 par acentesis in the past with fluid studies. Cytology negative, elevated protein of 4180 suggestive of likely cardiac source. No fluid albumin collected. Scheduled for paracentesis today and will order fluid albumin and protein. She is not currently on any diuretics, states that she was taken off of them because they did not work. She is not following with a data warehouse specialist and has been managed by her PCP Dr. Sena. States that she has had an appointment down at [facility], status post follow with data warehouse specialist there however appointment was canceled. Again patient has no history of liver disease, LFTs are all normal, no history of drinking, will get ultrasound of the liver and order hepatitis panel. Will need to also consider possibility of nonalcoholic fatty liver disease. Liver ultrasound ordered. Ascites possibly related to coronary artery disease and heart failure especially with the elevated protein. We'll consult with cardiology. Patient to undergo paracentesis with fluid studies, fluid studies consistent with portal hypertension however due to the elevated protein levels likely related to underlying CHF and not underlying chronic liver disease however that cannot be entirely ruled out.. Echocardiogram reports EF of 30% again likely ascites related to underlying heart failure. Current Visit: Yes Status: Acute Code(s): R18.8 - OTHER ASCITES SNOMED Code(s): 097549172 (2) Heart failure Current Visit: No Status: Acute Code(s): I50.9 - HEART FAILURE, UNSPECIFIED SNOMED Code(s): 93886536 (3) Diabetes mellitus Current Visit: Yes Status: Acute Code(s): E11.9 - TYPE 2 DIABETES MELLITUS WITHOUT COMPLICATIONS SNOMED Code(s): 82789323 (4) Coronary artery disease Current Visit: Yes Status: Acute Code(s): I25.10 - ATHSCL HEART DISEASE OF [place] CORONARY ARTERY W/O ANG PCTRS SNOMED Code(s): 54634665 (5) Chest pain Current Visit: Yes Status: Acute Code(s): R07.9 - CHEST PAIN, UNSPECIFIED SNOMED Code(s): 03764173 (6) SOB (shortness of breath) Current Visit: Yes Status: Acute Code(s): R06.02 - SHORTNESS OF BREATH SNOMED Code(s): 481491194 (7) Atrial fibrillation Current Visit: No Status: Acute Code(s): I48.91 - UNSPECIFIED ATRIAL F IBRILLATION SNOMED Code(s): 30437514 (8) Bilateral lower extremity edema Current Visit: No Status: Acute Code(s): R60.0 - LOCALIZED EDEMA SNOMED Code(s): 559427012 (9) Hypertension Current Visit: No Status: Acute Code(s): I10 - ESSENTIAL (PRIMARY) HYPE RTENSION SNOMED Code(s): 18880170 Plan: 1. Continue symptomatic supportive care 2. Paracentesis ordered, fluid albumin and protein ordered and reviewed 3. Continue Lasix 40 mg daily and Aldactone 100 mg daily 4. Recommend low sodium diet 5. Consult to cardiology, patient has history coronary artery disease, heart failure with ascites likely secondary to heart failure 6. Acute hepatitis panel ordered, all nonreactive 7. No further workup indicated from gastroenterology 8. Patient to follow-up with cardiology and PCP for management of diuretics Thank you for this consultation, we will sign off at this time. Dr. Brigitte Mullen I agree with the dictator's note, documented as a scribe by Mame Donovan.
[2023-02-16] MEDS: ALPRAZolam 1 MG TAB PO PRN (16:32)
[2023-02-16] MEDS: MONTELUKAST 10 MG TAB PO SCH (20:42)
[2023-02-17] MEDS: HYDROmorphone 2 MG TAB PO PRN ×3 (01:18→18:12)
[2023-02-17] MEDS: SODIUM CHLORIDE 0.9% 1,000 ML IV SCH ×2 (01:29→20:37)
--- NOTE | 2023-02-17 08:35 | CDI ---
Documentation Clarification Form Date: 02/17/2023 08:15:29 AM From: Cassidy Rogers RN CCDS Phone: [phone] Admit Date: 02/14/2023 12:05:00 AM Patient Name: Petty Blackwood Visit Number: [id number] Discharge Date: ATTENTION: The Clinical Documentation Specialists (CDI) and [facility] Coding Staff appreciate your assistance in clarifying documentation. Please respond to the clarification below the line at the bottom and electronically sign. The CDI & [facility] Coding staff will review the response and follow-up if needed. Please note: Queries are made part of the Legal Health Record. If you have any questions, please contact the author of this message via ITS. Dr. Odell Sena Your patient has the documented diagnosis of unspecified CHF 02/14, H&P and 02/15, Medicine note. Additional information regarding the acuity of CHF is requested. History/Risk Factors: 42-year-old female presents to ED with abdominal pain with chest pain, shortness of breath and severe ascites. Medical History: CAD with previous stenting, HTN, Ischemic cardiomyopathy, HLD, LV thrombus on anticoagulation and ascites with previous paracentesis, Anxiety, Bipolar, Depression and Schizophrenia. 02/14, Cardiology consult Clinical Indicators: VS/Pulse OX, 02/13: B/P 200/121; HR 103; Temp 97.5 F Oral; RR 22; SpO2 99% ra BNP, 02/13: 6710 Echocardiogram Results, 02/14: Severe concentric left ventricular hypertrophy with severe LV systolic dysfunction with an ejection fraction of 30% Treatment: 02/14 Toprol XL 100mg PO x 1; 02/14 Lasix 40mg PO x1; 02/14 Aldactone 100mg PO Daily; 02/14 Lasix 40mg IV Q12Hr; 02/15 Toprol Xl 100mg PO Daily; In your professional opinion, can you please clarify the acuity and of CHF if known? [ ] Acute on Chronic Systolic Heart Failure (reduced EF) [ ] Other, please specify [ ] Unable to determine (Template Last Revised: April 2020) Answered 02/[address] Sena Acute on chronic heart failure with reduced ejection fraction , 40-45%. MTDD
[2023-02-17] MEDS: METOPROLOL SUCCINATE (ER) 25 MG TAB.ER.24H PO SCH (08:43)
[2023-02-17] MEDS: FUROSEMIDE 10 MG/ML 4 ML VIAL IV SCH ×2 (08:43→20:31)
[2023-02-17] MEDS: SPIRONOLACTONE 25 MG TAB PO SCH (08:43)
[2023-02-17] MEDS: SACUBITRIL/VALSARTAN 24 MG-26 MG TABLET PO SCH (08:44)
[2023-02-17] MEDS: EZETIMIBE 10 MG TAB PO SCH (08:44)
--- NOTE | 2023-02-17 09:16 | P.PN ---
Subjective Progress Note Date: 02/17/23 HISTORY OF PRESENT ILLNESS: This is a 42-year-old female with a past medical history of diabetes, hypert ension, coronary artery disease with previous stenting, ischemic cardiomyopathy, hyperlipidemia, LV thrombus on anticoagulation, and ascites with previous paracentesis. Patient follows with a glost tile sorter in [place]. Dr. Diop. We have been asked to see the patient in consultation for CAD, heart failure, ascites likely cardiac. Patient is seen today in the emergency center waiting for a bed on the [facility] floor. Patient had a recent hospitalization in November of this year which time she was treated for acute on chronic reduced ejection fraction heart failure. Patient presented to the hospital due to chest pain, abdominal pain, shortness of breath. She was due for paracentesis that was scheduled for outpatient today. Patient states that her PCP has sent her to [facility] and she states she was there had 1.2 L taken off and was sent home. She states that no one has told her why she has the ascites. She denies any history of alcohol abuse, no smoking history and no drug abuse. Patient is status post hydralazine 100 mg oral once and Toprol-XL 100 mg once. Initial bl ood pressure 200/121 and heart rate in the low 100s. Blood pressure at time of evaluation is 180/103. EKG reveals sinus rhythm with evidence of previous anterior wall [place] and biatrial enlargement, no signs of acute ischemia Ultrasound of the liver revealed ascites. Gallbladder wall thickening. Medical renal disease. Probable calculus in the renal pelvis. No hydronephrosis. CBC unremarkable. INR 1.2. Potassium 4.0, creatinine 0.76. Troponin negative 2. ProBNP 6710. Lipase 50. Liver function tests are within normal limits. Magnesium 1.7. Current home cardiac medications include Eliquis 2.5mg BID, Catapres 0.1 mg twice daily, Plavix 75 mg as directed, Zetia 10 mg daily, hydralazine 100 mg 3 times daily, Toprol-XL 100 mg daily, Nitro-Dur patch daily as needed, Entresto 24 g26 mg one twice daily. Most recent echocardiogram obtained in November 2022 revealing ejection fraction 40-45%, moderate right ventricular hypertrophy, mild right ventricular dilation, mild to moderate right atrial enlargement, mild mitral regurgitation, mild tricuspid regurgitation. The small pericardial effusion without tamponade. Cardiac catheterization history: August 2021 revealing patent stent in the LAD and left circumflex. Significant disease in the apical septum of the LAD, patent distal branch point of the obtuse marginal branch with no progression of disease. Mild disease in the RCA. Right dominance. Medical management was recommended. 02/15 Patient is seen today on the observation unit. She states she is feeling better in general. She is scheduled for paracentesis today. She has been on IV Lasix 40 mg every 12 hours. Vital signs have been stable. Repeat BUN 25 creatinine 1 .31 and potassium 4.6. Echocardiogram reveals severe concentric left hypertrophy with severe LV systolic dysfunction with EF of 30%. Echocardiogram revealed with the patient. 02/16 Patient is seen again today on the observation unit. Last night she had a drop in her blood pressure and cardiology was contacted, blood pressure medications were held. She did receive nighttime Lasix daily until 2 AM. This morning, blood pressure is 112/66. Patient has been maintained on clonidine 0.2 mg 3 dane es daily, Lasix 40 mg IV every 12 hours, hydralazine 100 mg 3 times daily, Toprol-XL 100 mg daily, Entresto 2426 milligrams twice daily, Aldactone 100 mg daily. She is status post paracentesis. 02/17 Patient is seen today in follow-up on the observation unit. Blood pressure this morning is 110/65476/82, pulse ox 90% on room air, heart rate running in the 60s and 70s. Cardiology received a call last evening the blood pressure was low and additional blood pressure medications were adjusted. No repeat blood work available at this time, stat lab work ordered. Patient's weight is down 8 kg. GI has signed off and there is no plan of additional paracentesis. PHYSICAL EXAM: VITAL SIGNS: Reviewed. GENERAL: Well-developed in no acute distress. HEENT: Head is normocephalic. Pupils are equal, round. Sclerae anicteric. No JVD. LUNGS: Respirations even and unlabored. Lungs diminished with crackles bilaterally HEART: Regular rate and rhythm. S1 and S2 heard. ABDOMEN: Soft. Distended. Ascites present. EXTREMITIES: No clubbing or cyanosis. Peripheral pulses intact. Bilateral lower extremity edema with Ryan wraps noted NEUROLOGIC: Awake and alert. Oriented x 3. ASSESSMENT: Acute on chronic heart failure with reduced ejection fraction, 40-45% Hypertension, uncontrolled Hypotension Ascites post paracentesis 02/16 Coronary artery disease with previous stenting Ischemic cardiomyopathy History of LV thrombus on anticoagulation Diabetes PLAN: The following changes have been made: Discontinue Catapres, discontinue hydralazine to 25 mg 3 times daily Maintained patient on IV Lasix, Toprol-XL, Entresto and Aldactone Monitor blood pressure closely and further adjustment will be made to her medication regime as needed. Resume anticoagulation with eliquis and resume Plavix At the time of discharge, patient will be following up with [facility]. Nurse practitioner note has been reviewed by physician. Signing provider agrees with the documented findings, assessment, and plan of care. Objective - Vital Signs Vital signs: Vital Signs Temp 97.6 F 02/17/23 01:16 Pulse 64 02/17/23 01:16 Resp 16 02/17/23 01:16 BP 110/60 02/17/23 01:16 Pulse Ox 100 02/17/23 01:16 FiO2 Intake & Output 02/16/23 02/17/23 02/17/23 18:59 06:59 18:59 Intake Total 1051 Balance 1051 Intake: Oral 1051 Other: Voiding Method Toilet # Voids 2 2 - Labs CBC & Chem 7: 02/15/23 08:51 02/15/23 08:51 Labs: Microbiology - Last 24 Hours (Table) 02/15/23 13:30 Gram Stain - Preliminary Ascites Fluid
[2023-02-17 09:36] LABS: African American GFR (CKD) 49 (>60 ml/min/1.73 sqM); Anion Gap 10 mmol/L; Blood Urea Nitrogen 33 mg/dL (7-17); Carbon Dioxide 30 mmol/L (22-30); Chloride 98 mmol/L (98-107); Glucose 103 mg/dL (74-99); HCT 43.1 % (34.0-46.0); HGB 13.5 gm/dL (11.4-16.0); Hypochromasia Marked; MCH 26.4 pg (25.0-35.0); MCHC 31.2 g/dL (31.0-37.0); MCV 84.6 fL (80.0-100.0); Non-African American GFR(CKD) 42 (>60 ml/min/1.73 sqM); Platelet Count 286 k/uL (150-450); Potassium 4.8 mmol/L (3.5-5.1); RDW 14.7 % (11.5-15.5); Sodium 138 mmol/L (137-145); WBC 6.2 k/uL (3.8-10.6)
[2023-02-17] MEDS: CLOPIDOGREL 75 MG TAB PO SCH (10:35)
[2023-02-17] MEDS: APIXABAN 2.5 MG TABLET PO SCH ×2 (10:36→20:31)
[2023-02-17] MEDS: ALPRAZolam 1 MG TAB PO PRN (10:36)
[2023-02-17] MEDS: SACUBITRIL/VALSARTAN 49 MG-51 MG TABLET PO SCH ×2 (11:46→20:31)
[2023-02-17] MEDS: DAPAGLIFLOZIN PROPANEDIOL 10 MG TABLET PO SCH (11:48)
[2023-02-17] MEDS: MONTELUKAST 10 MG TAB PO SCH (20:31)
--- NOTE | 2023-02-17 20:43 | PN ---
PROGRESS NOTE DATE OF SERVICE: 02/16/2023 CHIEF COMPLAINT: Congestive heart failure with ascites. HISTORY OF PRESENT ILLNESS: This lady is doing a little bit better today. Blood pressure is up. She is less lightheaded. PHYSICAL EXAMINATION: CHEST: Demonstrates scattered rales. CARDIAC: Unchanged. ABDOMEN: Not nearly as distended. EXTREMITIES: Same. IMPRESSION: 1. Ascites. 2. Congestive heart failure with reduced ejection fraction. 3. Chronic passive congestion of the liver. 4. Venous stasis disease with cellulitis and ulcers. PLAN: Increase activity, and if she continues to do well, probably home tomorrow. MMODL / IJN: [id number] /
[2023-02-18] MEDS: HYDROmorphone 2 MG TAB PO PRN ×4 (01:49→21:29)
[2023-02-18] MEDS: ALPRAZolam 1 MG TAB PO PRN ×2 (04:09→20:38)
[2023-02-18] MEDS: SACUBITRIL/VALSARTAN 49 MG-51 MG TABLET PO SCH ×2 (08:28→20:38)
[2023-02-18] MEDS: APIXABAN 2.5 MG TABLET PO SCH ×2 (08:28→20:39)
[2023-02-18] MEDS: CLOPIDOGREL 75 MG TAB PO SCH (08:28)
[2023-02-18] MEDS: EZETIMIBE 10 MG TAB PO SCH (08:29)
[2023-02-18] MEDS: METOPROLOL SUCCINATE (ER) 25 MG TAB.ER.24H PO SCH (08:29)
[2023-02-18] MEDS: DAPAGLIFLOZIN PROPANEDIOL 10 MG TABLET PO SCH (08:29)
[2023-02-18] MEDS: SPIRONOLACTONE 25 MG TAB PO SCH (08:29)
[2023-02-18] MEDS: FUROSEMIDE 10 MG/ML 4 ML VIAL IV SCH ×2 (08:32→22:58)
--- NOTE | 2023-02-18 09:20 | PN ---
PROGRESS NOTE CHIEF COMPLAINT: Ascites and chronic congestive heart failure. HISTORY OF PRESENT ILLNESS: The patient is still quite dyspneic and she is quickly re-establishing her ascites. She has had no fever or chills, and she has had no chest pain. PHYSICAL EXAMINATION: CHEST: Breath sounds are diminished. CARDIAC: Unchanged. ABDOMEN: Is filling with ascitic fluid again. EXTREMITIES: Legs are wrapped. IMPRESSION: Acute on chronic heart failure with reduced ejection fraction. PLAN: Continue current program with addition of several new medications along with raising the dose of her ARNI. MMODL / IJN: [id number] /
[2023-02-18 09:35] LABS: HCT 40.7 % (37.2-46.3); HGB 12.3 g/dL (12.0-15.0); MCH 25.1 pg (27.0-32.0); MCHC 30.2 g/dL (32.0-37.0); MCV 83.1 FL (80.0-97.0); Mean Platelet Volume 9.8 FL (9.5-12.2); NRBC Per 100 WBC 0 X 10*3/uL (0.00-0.01); Platelet Count 283 X 10*3/uL (140-440); RDW 14.3 % (11.5-14.5)
[2023-02-18 09:53] LABS: BUN/Creat Ratio 20.25 Ratio (12.00-20.00); Blood Urea Nitrogen 32.4 mg/dL (9.0-27.0); Calcium 9.7 mg/dL (8.7-10.3); Carbon Dioxide 28.7 mmol/L (21.6-31.8); Chloride 97 mmol/L (96-109); Glucose 114 mg/dL (70-110); Potassium 4.9 mmol/L (3.5-5.5); Sodium 139 mmol/L (135-145)
[2023-02-18] MEDS ORDERED: SACUBITRIL/VALSARTAN 97 MG-103 MG TABLET PO SCH (10:15)
--- NOTE | 2023-02-18 12:06 | P.PN ---
Subjective Progress Note Date: 02/18/23 HISTORY OF PRESENT ILLNESS: This is a 42-year-old female with a past medical history of diabetes, hypert ension, coronary artery disease with previous stenting, ischemic cardiomyopathy, hyperlipidemia, LV thrombus on anticoagulation, and ascites with previous paracentesis. Patient follows with a newspaper press operator apprentice in [place]. Dr. Diop. We have been asked to see the patient in consultation for CAD, heart failure, ascites likely cardiac. Patient is seen today in the emergency center waiting for a bed on the [facility] floor. Patient had a recent hospitalization in November of this year which time she was treated for acute on chronic reduced ejection fraction heart failure. Patient presented to the hospital due to chest pain, abdominal pain, shortness of breath. She was due for paracentesis that was scheduled for outpatient today. Patient states that her PCP has sent her to [facility] and she states she was there had 1.2 L taken off and was sent home. She states that no one has told her why she has the ascites. She denies any history of alcohol abuse, no smoking history and no drug abuse. Patient is status post hydralazine 100 mg oral once and Toprol-XL 100 mg once. Initial bl ood pressure 200/121 and heart rate in the low 100s. Blood pressure at time of evaluation is 180/103. EKG reveals sinus rhythm with evidence of previous anterior wall [place] and biatrial enlargement, no signs of acute ischemia Ultrasound of the liver revealed ascites. Gallbladder wall thickening. Medical renal disease. Probable calculus in the renal pelvis. No hydronephrosis. CBC unremarkable. INR 1.2. Potassium 4.0, creatinine 0.76. Troponin negative 2. ProBNP 6710. Lipase 50. Liver function tests are within normal limits. Magnesium 1.7. Current home cardiac medications include Eliquis 2.5mg BID, Catapres 0.1 mg twice daily, Plavix 75 mg as directed, Zetia 10 mg daily, hydralazine 100 mg 3 times daily, Toprol-XL 100 mg daily, Nitro-Dur patch daily as needed, Entresto 24 g26 mg one twice daily. Most recent echocardiogram obtained in November 2022 revealing ejection fraction 40-45%, moderate right ventricular hypertrophy, mild right ventricular dilation, mild to moderate right atrial enlargement, mild mitral regurgitation, mild tricuspid regurgitation. The small pericardial effusion without tamponade. Cardiac catheterization history: August 2021 revealing patent stent in the LAD and left circumflex. Significant disease in the apical septum of the LAD, patent distal branch point of the obtuse marginal branch with no progression of disease. Mild disease in the RCA. Right dominance. Medical management was recommended. 02/15 Patient is seen today on the observation unit. She states she is feeling better in general. She is scheduled for paracentesis today. She has been on IV Lasix 40 mg every 12 hours. Vital signs have been stable. Repeat BUN 25 creatinine 1 .31 and potassium 4.6. Echocardiogram reveals severe concentric left hypertrophy with severe LV systolic dysfunction with EF of 30%. Echocardiogram revealed with the patient. 02/16 Patient is seen again today on the observation unit. Last night she had a drop in her blood pressure and cardiology was contacted, blood pressure medications were held. She did receive nighttime Lasix daily until 2 AM. This morning, blood pressure is 112/66. Patient has been maintained on clonidine 0.2 mg 3 dane es daily, Lasix 40 mg IV every 12 hours, hydralazine 100 mg 3 times daily, Toprol-XL 100 mg daily, Entresto 2426 milligrams twice daily, Aldactone 100 mg daily. She is status post paracentesis. 02/17 Patient is seen today in follow-up on the observation unit. Blood pressure this morning is 110/93234/82, pulse ox 90% on room air, heart rate running in the 60s and 70s. Cardiology received a call last evening the blood pressure was low and additional blood pressure medications were adjusted. No repeat blood work available at this time, stat lab work ordered. Patient's weight is down 8 kg. GI has signed off and there is no plan of additional paracentesis. 02/18/23 Patient continues to have significant volume overload. Patient has systolic blood pressure around 130s, heart rate in 70s. Kidney function is stable at 1.6 of creatinine. I'll make some changes to her heart failure medications as mentioned below. We will uptitrate it further tomorrow. Continue IV diuretics today. In next 2-3 days with transition to PO and plan for discharge PHYSICAL EXAM: VITAL SIGNS: Reviewed. GENERAL: Well-developed in no acute distress. HEENT: Head is normocephalic. Pupils are equal, round. Sclerae anicteric. No JVD. LUNGS: Respirations even and unlabored. Lungs diminished with crackles bilaterally HEART: Regular rate and rhythm. S1 and S2 heard. ABDOMEN: Soft. Distended. Ascites present. EXTREMITIES: No clubbing or cyanosis. Peripheral pulses intact. Bilateral lower extremity edema with Ryan wraps noted NEUROLOGIC: Awake and alert. Oriented x 3. ASSESSMENT: Acute on chronic heart failure with reduced ejection fraction, 40-45% Hypertension, uncontrolled Hypotension Ascites post paracentesis 02/16 Coronary artery disease with previous stenting Ischemic cardiomyopathy History of LV thrombus on anticoagulation Diabetes PLAN: The following changes have been made: Discontinue Catapres, discontinue hydralazine to 25 mg 3 times daily Maintained patient on IV Lasix, Toprol-XL, Entresto and Aldactone. Reduced Aldactone to 50 mg daily. Add metolazone 2.5 mg daily. Keep an Entresto at 24/26 mg twice a day. Monitor blood pressure closely and further adjustment will be made to her medication regime as needed. Resume anticoagulation with eliquis and resume Plavix At the time of discharge, patient will be following up with [facility]. Objective - Vital Signs Vital signs: Vital Signs Temp 98.1 F 02/18/23 07:05 Pulse 73 02/18/23 07:05 Resp 15 02/18/23 07:05 BP 129/77 02/18/23 07:05 Pulse Ox 97 02/18/23 07:05 FiO2 Intake & Output 02/17/23 02/18/23 02/18/23 18:59 06:59 18:59 Intake Total 236 Balance 236 Weight 71.4 kg 68 kg Intake: Oral 236 Other: Voiding Method Toilet Toilet - Labs CBC & Chem 7: 02/18/23 06:10 02/18/23 06:10 Labs: Abnormal Lab Results - Last 24 Hours (Table) 02/18/23 02/18/23 Range/Units 06:10 06:10 MCH 25.1 L (27.0-32.0) pg MCHC 30.2 L (32.0-37.0) g/dL Anion Gap 13.30 H (4.00-12.00) mmol/L BUN 32.4 H (9.0-27.0) mg/dL Creatinine 1.6 H (0.6-1.5) mg/dL Est GFR (CKD-EPI) 41 L (>=60) BUN/Creatinine Ratio 20.25 H (12.00-20.00) Ratio Glucose 114 H (70-110) mg/dL Microbiology - Last 24 Hours (Table) 02/15/23 13:30 Gram Stain - Preliminary Ascites Fluid Body Fluid Culture - Preliminary
[2023-02-18] MEDS: MONTELUKAST 10 MG TAB PO SCH (20:38)
[2023-02-18] MEDS: metOLazone 2.5 MG TAB PO SCH (20:39)
[2023-02-18 22:48] VITALS: RESP 16
[2023-02-18] MEDS: SODIUM CHLORIDE 0.9% 1,000 ML IV SCH (23:55)
[2023-02-19] MEDS: HYDROmorphone 2 MG TAB PO PRN ×3 (05:05→14:15)
[2023-02-19 07:35] VITALS: BP 117/73; PULSE 75; TEMP 98
[2023-02-19] MEDS: METOPROLOL SUCCINATE (ER) 25 MG TAB.ER.24H PO SCH (08:31)
[2023-02-19] MEDS: DAPAGLIFLOZIN PROPANEDIOL 10 MG TABLET PO SCH (08:31)
[2023-02-19] MEDS: ALPRAZolam 1 MG TAB PO PRN (08:31)
[2023-02-19] MEDS: CLOPIDOGREL 75 MG TAB PO SCH (08:31)
[2023-02-19] MEDS: metOLazone 2.5 MG TAB PO SCH (08:31)
[2023-02-19] MEDS: FUROSEMIDE 10 MG/ML 4 ML VIAL IV SCH (08:31)
[2023-02-19] MEDS: EZETIMIBE 10 MG TAB PO SCH (08:32)
[2023-02-19] MEDS: APIXABAN 2.5 MG TABLET PO SCH (08:32)
[2023-02-19] MEDS: SACUBITRIL/VALSARTAN 49 MG-51 MG TABLET PO SCH (08:32)
[2023-02-19] MEDS ORDERED: ATORVASTATIN 40 MG TAB PO SCH (09:00)
[2023-02-19] MEDS ORDERED: SPIRONOLACTONE 25 MG TAB PO SCH (09:00)
[2023-02-19] MEDS ORDERED: FUROSEMIDE 40 MG TAB PO SCH (16:00)
[2023-02-19] MEDS ORDERED: SACUBITRIL/VALSARTAN 97 MG-103 MG TABLET PO SCH (21:00)
--- NOTE | 2023-02-25 08:35 | PN ---
PROGRESS NOTE DATE OF SERVICE: 02/18/2023 CHIEF COMPLAINT: Ascites and congestive heart failure. HISTORY OF PRESENT ILLNESS: This lady is doing a little bit better. She still feels weak and short of breath and the ascitic fluid is reaccumulating. PHYSICAL EXAMINATION: VITAL SIGNS: Normal. Blood pressures are under good control. CHEST: Demonstrates decreased breath sounds with scattered rales at the bases. CARDIAC: Unchanged. ABDOMEN: Slightly protuberant. LEGS: Still edematous and wrapped. IMPRESSION: 1. Ascites. 2. Chronic passive congestion of the liver. 3. CHF with reduced ejection fraction. 4. Diabetes. 5. CKD. PLAN: Continue with current program and increase Entresto. MMODL / IJN: [id number] /
--- NOTE | 2023-02-26 03:43 | DS ---
DISCHARGE SUMMARY CHIEF COMPLAINT: Intractable ascites, abdominal pain, and congestive heart failure. HISTORY OF PRESENT ILLNESS AND PHYSICAL EXAMINATION: Details of this lady's history and physical can be found in the initial workup. LABORATORY STUDIES: While she was in the hospital, she had laboratory studies, details of which can be found in the laboratory section of her chart. COURSE IN THE HOSPITAL: After admission, she was placed on bedrest, started on intravenous fluids and analgesics. She was placed on her usual medications for her congestive heart failure and diabetes. While in the hospital, she remained weak, probably secondary to the amount of ascitic fluid that was removed. She was starting to feel better and it was felt that she could be discharged on the 3rd and she will go home on her usual medications and they followed for her redeveloping ascites, which is thought to be secondary to her heart failure. Her ejection fraction is down to 40%. She was set up to go to [place] to [facility], but refused the appointment. FINAL DIAGNOSES: 1. Intractable ascites. 2. Congestive heart failure with reduced ejection fraction. 3. Chronic passive congestion of the liver. 4. Ascites. 5. Type 2 diabetes. 6. Venous stasis disease with ulcers. OPERATIONS: None. CONSULTATION: None. She is improved. MMODL / IJN: [id number] /
== END 2023-02-19 14:35 | disposition home or self-care (01) | DRG 291 ==
LOC: EC 21:41 → OBSVTOIN 02-14 00:05 → 6NMEDSUR 02-14 00:05
PROVIDERS: ADMIT Family Medicine; ATTEND Family Medicine
PROC: 0W9G3ZZ Drainage of Peritoneal Cavity, Percutaneous Approach (ICD-10-PCS; principal; 2023-02-15)
DX: I13.0 Hypertensive heart and chronic kidney disease with heart failure and stage 1 through stage 4 chronic kidney disease, or unspecified chronic kidney disease (principal); I50.23 Acute on chronic systolic (congestive) heart failure; I31.39 Other pericardial effusion (noninflammatory); J44.1 Chronic obstructive pulmonary disease with (acute) exacerbation; K76.6 Portal hypertension; R18.8 Other ascites; L03.116 Cellulitis of left lower limb; L03.115 Cellulitis of right lower limb; L97.829 Non-pressure chronic ulcer of other part of left lower leg with unspecified severity; L97.819 Non-pressure chronic ulcer of other part of right lower leg with unspecified severity; J45.909 Unspecified asthma, uncomplicated; E11.22 Type 2 diabetes mellitus with diabetic chronic kidney disease; I50.84 End stage heart failure; K76.1 Chronic passive congestion of liver; Z79.01 Long term (current) use of anticoagulants; F20.9 Schizophrenia, unspecified; I25.10 Atherosclerotic heart disease of native coronary artery without angina pectoris; I25.2 Old myocardial infarction; I25.5 Ischemic cardiomyopathy; I95.9 Hypotension, unspecified; F32.A Depression, unspecified; E78.5 Hyperlipidemia, unspecified; I48.91 Unspecified atrial fibrillation; I87.8 Other specified disorders of veins; I08.1 Rheumatic disorders of both mitral and tricuspid valves; Z86.711 Personal history of pulmonary embolism; F41.9 Anxiety disorder, unspecified; N18.9 Chronic kidney disease, unspecified; K21.9 Gastro-esophageal reflux disease without esophagitis; N20.0 Calculus of kidney; Z79.899 Other long term (current) drug therapy; Z82.0 Family history of epilepsy and other diseases of the nervous system; Z82.49 Family history of ischemic heart disease and other diseases of the circulatory system; Z83.3 Family history of diabetes mellitus; Z85.72 Personal history of non-Hodgkin lymphomas; Z87.891 Personal history of nicotine dependence; Z96.651 Presence of right artificial knee joint; Z95.5 Presence of coronary angioplasty implant and graft; Z28.21 Immunization not carried out because of patient refusal; Z79.02 Long term (current) use of antithrombotics/antiplatelets; Z86.14 Personal history of Methicillin resistant Staphylococcus aureus infection; Z85.6 Personal history of leukemia; Z88.5 Allergy status to narcotic agent; Z88.0 Allergy status to penicillin; Z88.2 Allergy status to sulfonamides; Z88.1 Allergy status to other antibiotic agents; Z91.041 Radiographic dye allergy status
CPT/HCPCS: 36415; 49083; 76705; 80048; 80053; 80074; 82042; 82140; 82150; 82945; 83605; 83615; 83690; 83735; 83880; 84100; 84157; 84484; 85025; 85027; 85610; 85730; 87070; 87075; 87205; 88108; 88305; 89050; 93005; 93308; 96374; 96375; 96376; 99285

== ENCOUNTER 2023-04-21 08:01 | Day surgery (SDC) | payer MEDICARE, OTHER ==
[2023-04-21 09:02] LABS: Mean Platelet Volume 7.3; Platelet Count 198 k/uL (150-450)
[2023-04-21 09:07] LABS: INR 1.2 (<1.2); Prothrombin Time 12.8 sec (10.0-12.5)
[2023-04-21 09:24] LABS: African American GFR (CKD) 81 (>60 ml/min/1.73 sqM); Non-African American GFR(CKD) 70 (>60 ml/min/1.73 sqM)
[2023-04-21] MEDS: ALBUMIN HUMAN 25% 50 ML in EMPTY BAG 1 BAG IVPB SCH (09:40)
[2023-04-21 11:13] VITALS: PULSE 102; TEMP 97.8
[2023-04-21 13:10] VITALS: BP 149/84; RESP 24
--- NOTE | 2023-04-21 13:18 | US ---
EXAMINATION TYPE: US paracentesis abd w/image DATE OF EXAM: 04/21/2023 10:35 AM CLINICAL INDICATION:Female, 42 years old with history of R18.8 OTHER ASCITES; COMPARISON: 02/15/2023 ATTENDING: Dr. Anselmo Heath PROCEDURE: Informed consent was obtained. The risks of the procedure were extensively explained incl uding risk of damage to surrounding bowel with perforation and need for additional procedures. Proced ure was performed in the ultrasound procedure suite. Ultrasound imaging of the abdomen demonstrate as citic fluid. An appropriate access site was localized to the right lower abdomen. Timeout was taken p er protocol. The skin was prepped and draped in the usual sterile fashion and then locally anesthetiz ed with 1% lidocaine. The peritoneal cavity was then accessed via a 5-Azerbaijani one-step needle/cathete r. Approximately 8500 cc of clear straw-colored fluid was obtained. Samples were sent to the lab for analysis. Postprocedural imaging of the abdomen demonstrate a minimal amount of abdominal fluid. Patient tolerated procedure well without immediate complication. Hemostasis at the procedural site w as obtained with a sterile bandage placed. The patient was monitored in the holding area following th e procedure and was subsequently discharged in stable condition. IMPRESSION: Ultrasound guided paracentesis, with approximately 8500 cc of clear straw-colored fluid drained. Path ology results pending. No immediate complications were evident.
[2023-04-24 15:47] LABS: Appearance,BF Clear (Clear)
[2023-04-24 19:55] LABS: LDH, Body Fluid Source Paracentesis Fluid; T. Protein, Body Fluid Source Paracentesis Fluid; Total Protein, Body Fluid >3600 mg/dL
== END 2023-04-21 12:20 | disposition home or self-care (01) ==
LOC: RADPROMAIN 08:01
PROVIDERS: ATTEND Family Medicine
DX: R18.8 Other ascites (principal)
CPT/HCPCS: 88108; 88305; 89050; 82565; 85049; 85610; 83615; 84157; 36415; 49083; P9047

== ENCOUNTER 2023-05-23 11:05 | Day surgery (SDC) | payer MEDICARE, OTHER ==
[2023-05-23 13:23] LABS: Mean Platelet Volume 7.1; Platelet Count 220 k/uL (150-450)
[2023-05-23 13:34] LABS: African American GFR (CKD) 82 (>60 ml/min/1.73 sqM); Glucose 98 mg/dL (74-99); Non-African American GFR(CKD) 71 (>60 ml/min/1.73 sqM)
[2023-05-23 13:37] LABS: INR 1.3 (<1.2); Prothrombin Time 13.2 sec (10.0-12.5)
[2023-05-23 13:52] VITALS: TEMP 98.2
[2023-05-23] MEDS: ALBUMIN HUMAN 25% 50 ML in EMPTY BAG 1 BAG IVPB SCH (14:34)
--- NOTE | 2023-05-23 16:04 | US ---
EXAMINATION TYPE: US paracentesis abd w/image (therapeutic and diagnostic) DATE OF EXAM: 05/23/2023 CLINICAL HISTORY: 42-year-old female R18.8, other ascites The procedure was discussed with the patient. The risks, complications, benefits, and alternatives we re discussed and any questions were answered. Informed consent was obtained. The patient was placed s upine on the ultrasound table and prepped and draped in the usual sterile fashion. All elements of maximal barrier technique were utilized. Ultrasound was utilized to determine the precise skin entry site along the right lower quadrant/right flank. A 5 Greek One-Step catheter and trocar technique was utilized to access the ascites collection under direct ultrasound guidance. Two 60 mL syringes were filled with fluid and sent for laboratory analysis. Approximately 12.5 liters of clear, straw-colored fluid was removed. Catheter was removed, hemostasis obtained, and a dressing placed. The patient was stable throughout the procedure and remained stable upon discharge from Department of Radiology. IMPRESSION: Successful therapeutic and diagnostic paracentesis under ultrasound guidance. 12.5 L of fluid removed . Laboratory analysis pending.
[2023-05-23 16:06] VITALS: BP 152/102; PULSE 88; RESP 16
[2023-05-24 04:18] LABS: LDH, Body Fluid Source Paracentesis Fl; T. Protein, Body Fluid Source Paracentesis Fl; Total Protein, Body Fluid 3460 mg/dL
[2023-05-24 05:31] LABS: Appearance,BF Clear (Clear)
== END 2023-05-23 16:09 | disposition home or self-care (01) ==
LOC: RADPROMAIN 11:05
PROVIDERS: ATTEND Family Medicine
DX: R18.8 Other ascites (principal)
CPT/HCPCS: 88108; 88305; 89050; 82565; 82947; 85049; 85610; 83615; 84157; 36415; 49083; P9047

== ENCOUNTER 2023-06-06 12:36 | Day surgery (SDC) | payer MEDICARE, OTHER ==
[2023-06-06 13:22] LABS: Mean Platelet Volume 8.1; Platelet Count 151 k/uL (150-450)
[2023-06-06 13:30] LABS: INR 1.3 (<1.2); Prothrombin Time 13.5 sec (10.0-12.5)
[2023-06-06 13:41] VITALS: TEMP 100.4
[2023-06-06 13:57] LABS: African American GFR (CKD) 79 (>60 ml/min/1.73 sqM); Non-African American GFR(CKD) 69 (>60 ml/min/1.73 sqM)
[2023-06-06] MEDS: ALBUMIN HUMAN 25% 50 ML in EMPTY BAG 1 BAG IVPB SCH (14:18)
[2023-06-06 15:27] VITALS: BP 124/74; PULSE 77; RESP 12
[2023-06-07 03:23] LABS: LDH, Body Fluid Source Ascites; T. Protein, Body Fluid Source Ascites; Total Protein, Body Fluid 3120 mg/dL
[2023-06-07 04:57] LABS: Appearance,BF Clear (Clear)
--- NOTE | 2023-06-07 09:21 | US ---
Ultrasound-guided paracentesis. DATE OF EXAM: 06/06/2023 CLINICAL HISTORY: Ascites The procedure was discussed with the patient. The risks, complications, benefits, and alternatives we re discussed and any questions were answered. Informed consent was obtained. The patient was placed s upine on the ultrasound table and prepped and draped in the usual sterile fashion. All elements of maximal barrier technique were utilized. Under ultrasound guidance, access into the right lower quadrant was obtained, via the paracentesis catheter system and direct ultrasound guidanc e. Approximately 10.6 liters of straw-colored fluid was removed. The patient was stable throughout the p rocedure and remained stable upon discharge from Department of Radiology. IMPRESSION: Successful paracentesis under ultrasound guidance.
== END 2023-06-06 15:40 | disposition home or self-care (01) ==
LOC: RADPROMAIN 12:36
PROVIDERS: ATTEND Family Medicine
DX: R18.8 Other ascites (principal)
CPT/HCPCS: 89050; 82565; 85049; 85610; 83615; 84157; 49083; P9047

== ENCOUNTER 2023-06-14 07:52 | Day surgery (SDC) | payer MEDICARE, OTHER ==
[2023-06-14 09:05] VITALS: TEMP 97.9
[2023-06-14] MEDS: ALBUMIN HUMAN 25% 50 ML in EMPTY BAG 1 BAG IVPB SCH (09:53)
[2023-06-14 11:33] VITALS: BP 142/80; PULSE 80; RESP 18
--- NOTE | 2023-06-14 12:41 | US ---
Ultrasound-guided paracentesis. DATE OF EXAM: 06/14/2023 CLINICAL HISTORY: Ascites The procedure was discussed with the patient. The risks, complications, benefits, and alternatives we re discussed and any questions were answered. Informed consent was obtained. The patient was placed s upine on the ultrasound table and prepped and draped in the usual sterile fashion. All elements of maximal barrier technique were utilized. Under ultrasound guidance, access into the right lower quadrant was obtained, via the paracentesis catheter system and direct ultrasound guidanc e. Approximately 7.2 liters of straw-colored fluid was removed. The patient was stable throughout the pr ocedure and remained stable upon discharge from Department of Radiology. IMPRESSION: Successful paracentesis under ultrasound guidance.
== END 2023-06-14 11:20 | disposition home or self-care (01) ==
LOC: RADPROMAIN 07:52
PROVIDERS: ATTEND Family Medicine
DX: R18.8 Other ascites (principal)
CPT/HCPCS: 49083; P9047

== ENCOUNTER 2023-06-28 08:05 | Day surgery (SDC) | payer MEDICARE, OTHER ==
[~2023-06-28 08:05] MED LIST: ALBUMIN HUMAN 25% 50 ML in EMPTY BAG 1 BAG IVPB SCH
[2023-06-28 08:51] LABS: Mean Platelet Volume 8.1; Platelet Count 214 k/uL (150-450)
[2023-06-28 09:00] LABS: INR 1.2 (<1.2); Prothrombin Time 12.4 sec (10.0-12.5)
[2023-06-28 09:02] LABS: African American GFR (CKD) 84 (>60 ml/min/1.73 sqM); Glucose 110 mg/dL (74-99); Non-African American GFR(CKD) 73 (>60 ml/min/1.73 sqM)
[2023-06-28] MEDS: ALBUMIN HUMAN 25% 50 ML in EMPTY BAG 1 BAG IVPB SCH (09:23)
[2023-06-28 09:28] VITALS: RESP 16; TEMP 98
[2023-06-28 10:54] VITALS: BP 139/82; PULSE 82
--- NOTE | 2023-06-28 13:18 | US ---
Ultrasound-guided paracentesis. DATE OF EXAM: 06/28/2023 CLINICAL HISTORY: Ascites The procedure was discussed with the patient. The risks, complications, benefits, and alternatives we re discussed and any questions were answered. Informed consent was obtained. The patient was placed s upine on the ultrasound table and prepped and draped in the usual sterile fashion. All elements of maximal barrier technique were utilized. Under ultrasound guidance, access into the right lower quadrant was obtained, via the paracentesis catheter system and direct ultrasound guidanc e. Approximately 7.3 liters of straw-colored fluid was removed. The patient was stable throughout the pr ocedure and remained stable upon discharge from Department of Radiology. IMPRESSION: Successful paracentesis under ultrasound guidance.
== END 2023-06-28 10:50 | disposition home or self-care (01) ==
LOC: RADPROMAIN 08:05
PROVIDERS: ATTEND Family Medicine
DX: R18.8 Other ascites (principal)
CPT/HCPCS: 82565; 82947; 85049; 85610; 36415; 49083; P9047

== ENCOUNTER 2023-07-11 09:08 | Day surgery (SDC) | payer MEDICARE, OTHER ==
[2023-07-11] MEDS: ALPRAZolam 0.5 MG TAB PO STA (10:17)
[2023-07-11] MEDS: ALBUMIN HUMAN 25% 50 ML in EMPTY BAG 1 BAG IVPB SCH (11:03)
[2023-07-11 11:13] VITALS: BP 195/102; PULSE 90; RESP 18; TEMP 98.6
--- NOTE | 2023-07-11 11:19 | US ---
EXAMINATION TYPE: US discontinued paracentesis DATE OF EXAM: 07/11/2023 CLINICAL HISTORY: 42-year-old female R18.8, other ascites, routine outpatient paracentesis. The procedure was discussed with the patient. The risks, complications, benefits, and alternatives we re discussed and any questions were answered. Informed consent was obtained. Hypertension with systolic blood pressure in the 190s. However, the patient elected to postpone the p rocedure until next week. Of note, multiple attempts at IV placement were unsuccessful. Preprocedure labs could not be obtained and there was no access for postprocedure albumin. IMPRESSION: Routine outpatient paracentesis postponed until next week.
== END 2023-07-11 11:00 | disposition home or self-care (01) ==
LOC: RADPROMAIN 09:08
PROVIDERS: ATTEND Family Medicine
DX: Z53.8 Procedure and treatment not carried out for other reasons (principal); R18.8 Other ascites
CPT/HCPCS: 76705

== ENCOUNTER 2023-07-17 08:51 | Day surgery (SDC) | payer MEDICARE, OTHER ==
[2023-07-17 09:23] LABS: Mean Platelet Volume 7.5; Platelet Count 181 k/uL (150-450)
[2023-07-17 09:33] LABS: African American GFR (CKD) 89 (>60 ml/min/1.73 sqM); Glucose 144 mg/dL (74-99); INR 1.1 (<1.2); Non-African American GFR(CKD) 78 (>60 ml/min/1.73 sqM); Prothrombin Time 11.9 sec (10.0-12.5)
[2023-07-17 10:02] VITALS: RESP 16; TEMP 98
[2023-07-17] MEDS: ALBUMIN HUMAN 25% 50 ML in EMPTY BAG 1 BAG IVPB SCH (10:08)
--- NOTE | 2023-07-17 11:24 | US ---
Ultrasound-guided paracentesis. DATE OF EXAM: 07/17/2023 CLINICAL HISTORY: Ascites The procedure was discussed with the patient. The risks, complications, benefits, and alternatives we re discussed and any questions were answered. Informed consent was obtained. The patient was placed s upine on the ultrasound table and prepped and draped in the usual sterile fashion. All elements of maximal barrier technique were utilized. Under ultrasound guidance, access into the right lower quadrant was obtained, via the paracentesis catheter system and direct ultrasound guidanc e. Approximately 8.4 liters of straw-colored fluid was removed. The patient was stable throughout the pr ocedure and remained stable upon discharge from Department of Radiology. IMPRESSION: Successful paracentesis under ultrasound guidance.
[2023-07-17 11:35] VITALS: BP 161/93; PULSE 85
[2023-07-17 16:43] LABS: Appearance,BF Clear (Clear)
[2023-07-17 21:30] LABS: LDH, Body Fluid Source Ascites; T. Protein, Body Fluid Source Ascites; Total Protein, Body Fluid 3570 mg/dL
== END 2023-07-17 11:26 | disposition home or self-care (01) ==
LOC: RADPROMAIN 08:51
PROVIDERS: ATTEND Family Medicine
DX: R18.8 Other ascites (principal)
CPT/HCPCS: 36415; 49083; 82565; 82947; 83615; 84157; 85049; 85610; 88108; 88305; 89050

== ENCOUNTER 2023-08-08 08:08 | Day surgery (SDC) | payer MEDICARE, OTHER ==
[2023-08-08 08:53] LABS: Mean Platelet Volume 7.8; Platelet Count 204 k/uL (150-450)
[2023-08-08 09:23] LABS: INR 1.1 (<1.2); Prothrombin Time 12.2 sec (10.0-12.5)
[2023-08-08 09:42] VITALS: RESP 12; TEMP 98.3
[2023-08-08 09:57] LABS: African American GFR (CKD) >90 (>60 ml/min/1.73 sqM); Glucose 123 mg/dL (74-99); Non-African American GFR(CKD) >90 (>60 ml/min/1.73 sqM)
[2023-08-08] MEDS: ALBUMIN HUMAN 25% 50 ML in EMPTY BAG 1 BAG IVPB SCH (10:58)
[2023-08-08 11:36] VITALS: BP 178/92; PULSE 106
[2023-08-08 16:45] LABS: Appearance,BF Clear (Clear)
[2023-08-08 18:42] LABS: LDH, Body Fluid Source Ascites; T. Protein, Body Fluid Source Ascites; Total Protein, Body Fluid >3600 mg/dL
--- NOTE | 2023-08-10 09:14 | US ---
EXAMINATION TYPE: US paracentesis abd w/image DATE OF EXAM: 08/08/2023 9:58 AM CLINICAL INDICATION:Female, 42 years old with history of R18.8 OTHER ASCITES; COMPARISON: 07/17/2023 ATTENDING: Dr. Anselmo Heath PROCEDURE: Informed consent was obtained. The risks of the procedure were extensively explained incl uding risk of damage to surrounding bowel with perforation and need for additional procedures. Proced ure was performed in the ultrasound procedure suite. Ultrasound imaging of the abdomen demonstrate as citic fluid. An appropriate access site was localized to the right lower abdomen. Timeout was taken p er protocol. The skin was prepped and draped in the usual sterile fashion and then locally anesthetiz ed with 1% lidocaine. The peritoneal cavity was then accessed via a 5-Togolese one-step needle/cathete r. Approximately 7800 cc of clear straw-colored fluid was obtained. Postprocedural imaging of the ab domen demonstrate a minimal amount of abdominal fluid. Patient tolerated procedure well without immediate complication. Hemostasis at the procedural site w as obtained with a sterile bandage placed. The patient was monitored in the holding area following th e procedure and was subsequently discharged in stable condition. IMPRESSION: Ultrasound guided paracentesis, with approximately 7800 cc of clear straw-colored fluid drained. No i mmediate complications were evident.
== END 2023-08-08 11:10 | disposition home or self-care (01) ==
LOC: CANPRESDC → RADPROMAIN 08:08
PROVIDERS: ATTEND Family Medicine
DX: R18.8 Other ascites (principal)
CPT/HCPCS: 49083; 82565; 82947; 83615; 84157; 85049; 85610; 88108; 88305; 89050

== ENCOUNTER → 2023-08-17 | Outpatient (CLI) | payer MEDICARE, OTHER ==
--- NOTE | 2023-08-19 16:38 | CT ---
EXAMINATION TYPE: CT ChestAbdPelvis wo con DATE OF EXAM: 08/17/2023 INDICATION: LOCALIZED ENLARGED LYMPH NODES. pt also complains of stomach pain. COMPARISON: 05/04/2021 CT DLP: 703.2 mGycm CONTRAST: Performed without Oral Contrast TECHNIQUE: Axial images at 5 mm thick sections. Reconstructed images in the coronal plane. Delayed images through the kidneys. FINDINGS: CT CHEST: Portion of the thyroid visualized is normal. No suspicious lung nodules or focal infiltrates are present. No enlarged mediastinal or hilar adenopathy is evident. Multiple shotty lymph nodes are present throu gh the mediastinum. The ascending aorta diameter at the level of the main pulmonary artery is 3.1 cm. The main pulmonary artery diameter at the bifurcation is 3.2 cm. Coronary artery calcifications present. Heart size is mildly prominent. CT ABDOMEN: Ascites is present. Liver: Normal Spleen: Enlarged Pancreas: Normal Adrenal glands: The adrenal glands are normal. Gallbladder: Normal Kidneys: No masses are evident. No hydronephrosis is present. No cysts are present. There is a 0.7 x 1.6 cm calcification in right renal pelvis without hydronephrosis. Aorta: Vascular calcification is within the aorta. Inferior vena cava: Normal. CT PELVIS: Some fluid is within the cul-de-sac. Loops of bowel within the abdomen and pelvis are normal. This study is without oral contrast limi ting bowel evaluation. Appendix: Normal as visualized. Urinary bladder: Normal. Genitourinary structures: Uterus is normal. Adnexa are unremarkable. Osseous structures: No suspicious lytic or sclerotic lesions. Lymph nodes: Couple of shotty periaortic lymph nodes may be present. Couple small axillary lymph node s are present. No enlarged retrocrural adenopathy evident. Scattered small mesenteric may be present. Couple of inguinal lymph nodes appear prominent measuring 1.5 cm on the right and 1.8 cm on the left . Additional shotty lymphadenopathy may be present. IMPRESSION: 1. There is a couple of prominent lymph nodes within the bilateral inguinal regions. Additional shott y lymphadenopathy is noted in the periaortic and mediastinal regions. Additional enlarged lymphadenop athy is not identified. 2. Prominent ascites through the abdomen and pelvis. 3. Nonobstructing right renal pelvic stone
== END | disposition home or self-care (01) ==
LOC: RADCTMAIN 11:56
PROVIDERS: ATTEND Internal Medicine
DX: N20.0 Calculus of kidney (principal); R18.8 Other ascites; R59.1 Generalized enlarged lymph nodes; E11.9 Type 2 diabetes mellitus without complications; D64.9 Anemia, unspecified; I10 Essential (primary) hypertension; Z71.3 Dietary counseling and surveillance
CPT/HCPCS: 71250; 74176

== ENCOUNTER 2023-08-22 08:53 | Day surgery (SDC) | payer MEDICARE, OTHER ==
[2023-08-22 09:42] VITALS: TEMP 97.7
[2023-08-22 10:13] LABS: Mean Platelet Volume 7.6; Platelet Count 180 k/uL (150-450)
[2023-08-22 10:20] LABS: African American GFR (CKD) >90 (>60 ml/min/1.73 sqM); Non-African American GFR(CKD) 87 (>60 ml/min/1.73 sqM)
[2023-08-22 10:30] LABS: INR 1.1 (<1.2); Prothrombin Time 12.1 sec (10.0-12.5)
[2023-08-22] MEDS: ALBUMIN HUMAN 25% 50 ML in EMPTY BAG 1 BAG IVPB SCH (10:32)
[2023-08-22 10:56] VITALS: RESP 24
[2023-08-22 11:25] VITALS: BP 180/101; PULSE 85
--- NOTE | 2023-08-23 09:44 | US ---
EXAMINATION TYPE: US paracentesis abd w/image DATE OF EXAM: 08/22/2023 10:46 AM CLINICAL INDICATION:Female, 42 years old with history of R18.8 OTHER ASCITES; COMPARISON: 08/08/2023 ATTENDING: Dr. Anselmo Heath PROCEDURE: Informed consent was obtained. The risks of the procedure were extensively explained incl uding risk of damage to surrounding bowel with perforation and need for additional procedures. Proced ure was performed in the ultrasound procedure suite. Ultrasound imaging of the abdomen demonstrate as citic fluid. An appropriate access site was localized to the right lower abdomen. Timeout was taken p er protocol. The skin was prepped and draped in the usual sterile fashion and then locally anesthetiz ed with 1% lidocaine. The peritoneal cavity was then accessed via a 5-Taiwanese one-step needle/cathete r. Approximately 6300 cc of clear straw-colored fluid was obtained. Postprocedural imaging of the a bdomen demonstrate a minimal amount of abdominal fluid. Patient tolerated procedure well without immediate complication. Hemostasis at the procedural site w as obtained with a sterile bandage placed. The patient was monitored in the holding area following th e procedure and was subsequently discharged in stable condition. IMPRESSION: Ultrasound guided paracentesis, with approximately 6300 cc of clear straw-colored fluid drained. Path ology results pending. No immediate complications were evident.
== END 2023-08-22 11:51 | disposition home or self-care (01) ==
LOC: RADPROMAIN 08:53
PROVIDERS: ATTEND Family Medicine
DX: R18.8 Other ascites (principal)
CPT/HCPCS: 82565; 85049; 85610; 36415; 49083; P9047

== ENCOUNTER 2023-08-30 08:31 | Day surgery (SDC) | payer MEDICARE, OTHER ==
[2023-08-30 09:05] LABS: Mean Platelet Volume 7.7; Platelet Count 214 k/uL (150-450)
[2023-08-30 09:13] LABS: INR 1.1 (<1.2); Prothrombin Time 11.6 sec (10.0-12.5)
[2023-08-30 09:27] LABS: African American GFR (CKD) >90 (>60 ml/min/1.73 sqM); Non-African American GFR(CKD) 85 (>60 ml/min/1.73 sqM)
[2023-08-30 09:28] VITALS: RESP 16; TEMP 98.3
[2023-08-30 10:53] VITALS: BP 149/74; PULSE 111
--- NOTE | 2023-08-30 11:00 | US ---
Ultrasound-guided paracentesis. DATE OF EXAM: 08/30/2023 CLINICAL HISTORY: Ascites The procedure was discussed with the patient. The risks, complications, benefits, and alternatives we re discussed and any questions were answered. Informed consent was obtained. The patient was placed s upine on the ultrasound table and prepped and draped in the usual sterile fashion. All elements of maximal barrier technique were utilized. Under ultrasound guidance, access into the right lower quadrant was obtained, via the paracentesis catheter system and direct ultrasound guidanc e. Approximately 5.4 liters of straw-colored fluid was removed. The patient was stable throughout the pr ocedure and remained stable upon discharge from Department of Radiology. IMPRESSION: Successful paracentesis under ultrasound guidance.
== END 2023-08-30 11:00 | disposition home or self-care (01) ==
LOC: RADPROMAIN 08:31
PROVIDERS: ATTEND Family Medicine
DX: R18.8 Other ascites (principal)
CPT/HCPCS: 36415; 49083; 82565; 85049; 85610

== ENCOUNTER 2023-09-05 08:44 | Day surgery (SDC) | payer MEDICARE, OTHER ==
[2023-09-05 09:44] LABS: Mean Platelet Volume 7.7; Platelet Count 230 k/uL (150-450)
[2023-09-05 09:52] LABS: INR 1.1 (<1.2); Prothrombin Time 11.6 sec (10.0-12.5)
[2023-09-05 10:07] LABS: African American GFR (CKD) >90 (>60 ml/min/1.73 sqM); Non-African American GFR(CKD) 84 (>60 ml/min/1.73 sqM)
[2023-09-05 10:31] VITALS: RESP 16; TEMP 98.1
[2023-09-05 11:11] VITALS: BP 185/101; PULSE 88
--- NOTE | 2023-09-05 11:14 | US ---
EXAMINATION TYPE: US paracentesis abd w/image DATE OF EXAM: 09/05/2023 10:24 AM CLINICAL INDICATION:Female, 42 years old with history of ascites; COMPARISON: 08/29/2022 ATTENDING: Dr. Anselmo Heath PROCEDURE: Informed consent was obtained. The risks of the procedure were extensively explained incl uding risk of damage to surrounding bowel with perforation and need for additional procedures. Proced ure was performed in the ultrasound procedure suite. Ultrasound imaging of the abdomen demonstrate as citic fluid. An appropriate access site was localized to the right lower abdomen. Timeout was taken p er protocol. The skin was prepped and draped in the usual sterile fashion and then locally anesthetiz ed with 1% lidocaine. The peritoneal cavity was then accessed via a 5-Vietnamese one-step needle/cathete r. Approximately 4000 cc of orange -colored fluid was obtained. Samples were sent to the lab for clover lysis. Postprocedural imaging of the abdomen demonstrate a minimal amount of abdominal fluid. Patient tolerated procedure well without immediate complication. Hemostasis at the procedural site w as obtained with a sterile bandage placed. The patient was monitored in the holding area following th e procedure and was subsequently discharged in stable condition. IMPRESSION: Ultrasound guided paracentesis, with approximately 4000 cc of orange -colored fluid drained. Patholog y results pending. No immediate complications were evident.
[2023-09-05 20:55] LABS: LDH, Body Fluid Source Peritoneal Fluid; T. Protein, Body Fluid Source Peritoneal Fluid; Total Protein, Body Fluid 2920 mg/dL
[2023-09-05 21:25] LABS: Appearance,BF Slightly Cloudy (Clear)
== END 2023-09-05 11:15 | disposition home or self-care (01) ==
LOC: RADPROMAIN 08:44
PROVIDERS: ATTEND Family Medicine
DX: R18.8 Other ascites (principal)
CPT/HCPCS: 36415; 49083; 82565; 83615; 84157; 85049; 85610; 88108; 88305; 89050

== ENCOUNTER 2023-09-18 08:52 | Day surgery (SDC) | payer MEDICARE, OTHER ==
[2023-09-18 09:36] VITALS: TEMP 97.9
[2023-09-18 09:38] LABS: Mean Platelet Volume 7.7; Platelet Count 203 k/uL (150-450)
[2023-09-18 09:46] LABS: African American GFR (CKD) 89 (>60 ml/min/1.73 sqM); Non-African American GFR(CKD) 78 (>60 ml/min/1.73 sqM)
[2023-09-18 09:51] LABS: INR 1.2 (<1.2); Prothrombin Time 12.5 sec (10.0-12.5)
[2023-09-18 10:29] VITALS: RESP 20
[2023-09-18 11:26] VITALS: BP 189/114; PULSE 103
[2023-09-18] MEDS: ALBUMIN HUMAN 25% 50 ML in EMPTY BAG 1 BAG IVPB SCH (11:33)
--- NOTE | 2023-09-18 12:22 | US ---
Ultrasound-guided paracentesis. DATE OF EXAM: 09/18/2023 CLINICAL HISTORY: Ascites The procedure was discussed with the patient. The risks, complications, benefits, and alternatives we re discussed and any questions were answered. Informed consent was obtained. The patient was placed s upine on the ultrasound table and prepped and draped in the usual sterile fashion. All elements of maximal barrier technique were utilized. Under ultrasound guidance, access into the left lower quadrant was obtained, via the paracentesis catheter system and direct ultrasound guidance . Approximately 7.1 liters of straw-colored fluid was removed. The patient was stable throughout the pr ocedure and remained stable upon discharge from Department of Radiology. IMPRESSION: Successful paracentesis under ultrasound guidance.
== END 2023-09-18 11:25 | disposition home or self-care (01) ==
LOC: RADPROMAIN 08:52
PROVIDERS: ATTEND Family Medicine
DX: R18.8 Other ascites (principal)
CPT/HCPCS: 36415; 49083; 82565; 85049; 85610

== ENCOUNTER 2023-09-26 10:24 | Day surgery (SDC) | payer MEDICARE, OTHER ==
[2023-09-26] MEDS ORDERED: ALBUMIN HUMAN 25% 50 ML in EMPTY BAG 1 BAG IVPB SCH (12:00)
[2023-09-26 13:18] VITALS: TEMP 98.1
[2023-09-26 13:21] LABS: Basophils % (A) 1 %; Eosinophils # (A) 0.1 k/uL (0-0.7); Eosinophils % (A) 2 %; HCT 44.2 % (34.0-46.0); HGB 13.3 gm/dL (11.4-16.0); Hypochromasia Moderate; Lymphocytes # (A) 0.9 k/uL (1.0-4.8); Lymphocytes % (A) 19 %; MCH 25.6 pg (25.0-35.0); MCV 85.3 fL (80.0-100.0); Mean Platelet Volume 7.8; Monocytes # (A) 0.2 k/uL (0-1.0); Monocytes % (A) 4 %; Neutrophils # (A) 3.4 k/uL (1.3-7.7); Neutrophils % (A) 73 %; Platelet Count 195 k/uL (150-450); RBC 5.18 m/uL (3.80-5.40); RDW 14.8 % (11.5-15.5); WBC 4.7 k/uL (3.8-10.6)
[2023-09-26 13:27] LABS: INR 1.1 (<1.2); Prothrombin Time 12.2 sec (10.0-12.5)
[2023-09-26 13:30] LABS: ALT 12 U/L (4-34); AST 20 U/L (14-36); African American GFR (CKD) 89 (>60 ml/min/1.73 sqM); Albumin 3.5 g/dL (3.5-5.0); Alkaline Phosphatase 80 U/L (38-126); Anion Gap 6 mmol/L; Blood Urea Nitrogen 16 mg/dL (7-17); Calcium 8.8 mg/dL (8.4-10.2); Carbon Dioxide 24 mmol/L (22-30); Chloride 107 mmol/L (98-107); Glucose 75 mg/dL (74-99); LDH 187 U/L (120-246); Non-African American GFR(CKD) 77 (>60 ml/min/1.73 sqM); Potassium 4.3 mmol/L (3.5-5.1); Sodium 137 mmol/L (137-145); Total Bilirubin 0.7 mg/dL (0.2-1.3); Total Protein 6.3 g/dL (6.3-8.2)
[2023-09-26 13:38] LABS: NT-Pro-B-Type Natriuretic Pept 5280 pg/mL
[2023-09-26 15:32] VITALS: BP 143/90; PULSE 68; RESP 18
[2023-09-26 22:39] LABS: Chol/HDL Ratio 2.92 Ratio; LDL Cholesterol,Calculated 97.2 mg/dL (0.0-131.0); VLDL Calculation 9.94 mg/dL (5.00-40.00)
--- NOTE | 2023-09-27 12:35 | US ---
EXAMINATION TYPE: US paracentesis abd w/image DATE OF EXAM: 09/26/2023 2:22 PM CLINICAL INDICATION:Female, 42 years old with history of ascites; COMPARISON: 09/18/2023 ATTENDING: Dr. Anselmo Heath PROCEDURE: Informed consent was obtained. The risks of the procedure were extensively explained incl uding risk of damage to surrounding bowel with perforation and need for additional procedures. Proced ure was performed in the ultrasound procedure suite. Ultrasound imaging of the abdomen demonstrate as citic fluid. An appropriate access site was localized to the right lower abdomen. Timeout was taken p er protocol. The skin was prepped and draped in the usual sterile fashion and then locally anesthetiz ed with 1% lidocaine. The peritoneal cavity was then accessed via a 5-Kinyarwanda one-step needle/cathete r. Approximately 6500 cc of clear straw-colored fluid was obtained. Postprocedural imaging of the a bdomen demonstrate a minimal amount of abdominal fluid. Patient tolerated procedure well without immediate complication. Hemostasis at the procedural site w as obtained with a sterile bandage placed. The patient was monitored in the holding area following th e procedure and was subsequently discharged in stable condition. IMPRESSION: Ultrasound guided paracentesis, with approximately 6500 cc of clear straw-colored fluid drained. No immediate complications were evident.
== END 2023-09-26 15:05 | disposition home or self-care (01) ==
LOC: RADPROMAIN 10:24
PROVIDERS: ATTEND Family Medicine
DX: R18.8 Other ascites (principal)
CPT/HCPCS: 49083; 80053; 80061; 82105; 83615; 83880; 85025; 85610

== ENCOUNTER 2023-10-03 08:30 | Day surgery (SDC) | payer MEDICARE, OTHER ==
[2023-10-03 09:40] LABS: Mean Platelet Volume 7.8; Platelet Count 158 k/uL (150-450)
[2023-10-03 09:49] LABS: Prothrombin Time 11.2 sec (10.0-12.5)
[2023-10-03 09:51] LABS: African American GFR (CKD) 89 (>60 ml/min/1.73 sqM); Non-African American GFR(CKD) 78 (>60 ml/min/1.73 sqM)
[2023-10-03 10:09] VITALS: RESP 16; TEMP 98
[2023-10-03] MEDS: ALBUMIN HUMAN 25% 50 ML in EMPTY BAG 1 BAG IVPB SCH (10:24)
[2023-10-03 11:26] VITALS: BP 149/97; PULSE 75
--- NOTE | 2023-10-03 11:40 | US ---
EXAMINATION TYPE: US paracentesis abd w/image, therapeutic and diagnostic DATE OF EXAM: 10/03/2023 CLINICAL HISTORY: 42-year-old female with ascites, here for weekly paracentesis The procedure was discussed with the patient. The risks, complications, benefits, and alternatives we re discussed and any questions were answered. Informed consent was obtained. The patient was placed s upine on the ultrasound table and prepped and draped in the usual sterile fashion. All elements of maximal barrier technique were utilized. Ultrasound was utilized to determine the precise skin entry site along the right lower quadrant. A 5 Bulgarian One-Step catheter and trocar technique was utilized to access the ascites collection under direct ultrasound guidance. Initial two 60 mL syringes were filled, labeled, and sent for laboratory analysis. Subsequently, a to enrique of approximately 4.9 liters of clear, straw-colored fluid was removed. Catheter was removed, hemostasis obtained, and a dressing placed. The patient was stable throughout the procedure and remained stable upon discharge from Department of Radiology. IMPRESSION: Successful diagnostic and therapeutic paracentesis under ultrasound guidance. 4.9 L of fluid removed.
[2023-10-03 20:09] LABS: LDH, Body Fluid Source Ascites; T. Protein, Body Fluid Source Ascites; Total Protein, Body Fluid 2870 mg/dL
[2023-10-03 21:55] LABS: Appearance,BF Slightly Hazy (Clear)
== END 2023-10-03 11:15 | disposition home or self-care (01) ==
LOC: RADPROMAIN 08:30
PROVIDERS: ATTEND Family Medicine
DX: R18.8 Other ascites (principal); C95.90 Leukemia, unspecified not having achieved remission
CPT/HCPCS: 36415; 49083; 82565; 83615; 84157; 85049; 85610; 88108; 88305; 89050

== ENCOUNTER 2023-10-10 09:02 | Day surgery (SDC) | payer MEDICARE, OTHER ==
[2023-10-10 09:25] VITALS: RESP 12; TEMP 97.9
[2023-10-10 10:36] VITALS: BP 143/83; PULSE 81
[2023-10-10] MEDS: ALBUMIN HUMAN 25% 50 ML in EMPTY BAG 1 BAG IVPB SCH (10:38)
--- NOTE | 2023-10-10 11:33 | US ---
Ultrasound-guided paracentesis. DATE OF EXAM: 10/10/2023 CLINICAL HISTORY: Ascites The procedure was discussed with the patient. The risks, complications, benefits, and alternatives we re discussed and any questions were answered. Informed consent was obtained. The patient was placed s upine on the ultrasound table and prepped and draped in the usual sterile fashion. All elements of maximal barrier technique were utilized. Under ultrasound guidance, access into the left lower quadrant was obtained, via the paracentesis catheter system and direct ultrasound guidance . Approximately 4.6 liters of straw-colored fluid was removed. The patient was stable throughout the pr ocedure and remained stable upon discharge from Department of Radiology. IMPRESSION: Successful paracentesis under ultrasound guidance.
== END 2023-10-10 10:55 | disposition home or self-care (01) ==
LOC: RADPROMAIN 09:02
PROVIDERS: ATTEND Family Medicine
DX: R18.8 Other ascites (principal)
CPT/HCPCS: 49083

== ENCOUNTER → 2023-10-31 | Day surgery (SDC) | payer MEDICARE, OTHER ==
--- NOTE | 2023-11-17 09:32 | US ---
Patient: Petty Franklin G Ordering Physician: Unknown, Unknown ID: [id number] Phone, Pager: Phone: N/A Pager: N/A : 1980 Age/Gender: 42Y, N/A Primary Location: N/A Procedure: US paracentesis a bd w/image Study Date: 10/31/2023 11:02:00 AM EXAMINATION TYPE: US paracentesis abd w/image DATE OF EXAM: 11/13/2023 10:14 AM CLINICAL INDICATION ascites COMPARISON: None ATTENDING: Dr. Anselmo Heath PROCEDURE: Informed consent was obtained. The risks of the procedure were extensively explained incl uding risk of damage to surrounding bowel with perforation and need for additional procedures. Proced ure was performed in the ultrasound procedure suite. Ultrasound imaging of the abdomen demonstrate as citic fluid. An appropriate access site was localized to the right lower abdomen. Timeout was taken p er protocol. The skin was prepped and draped in the usual sterile fashion and then locally anesthetiz ed with 1% lidocaine. The peritoneal cavity was then accessed via a 5-Kenyan one-step needle/cathete r. Approximately 5600 cc of clear straw-colored fluid was obtained. Postprocedural imaging of the ab domen demonstrate a minimal amount of abdominal fluid. Patient tolerated procedure well without immediate complication. Hemostasis at the procedural site w as obtained with a sterile bandage placed. The patient was monitored in the holding area following th e procedure and was subsequently discharged in stable condition. IMPRESSION: Ultrasound guided paracentesis, with approximately 5600 cc of clear straw-colored fluid drained. No immediate complications were evident.
== END ==
LOC: RADPROMAIN 08:48
PROVIDERS: ATTEND Family Medicine
DX: R18.8 Other ascites (principal)
CPT/HCPCS: 49083; 88108; 88305

== ENCOUNTER 2023-11-15 08:43 | Day surgery (SDC) | payer MEDICARE, OTHER ==
[2023-11-15 09:48] VITALS: RESP 16; TEMP 98.1
[2023-11-15 09:51] LABS: Mean Platelet Volume 7.6; Platelet Count 200 k/uL (150-450)
[2023-11-15 10:09] LABS: African American GFR (CKD) 89 (>60 ml/min/1.73 sqM); Non-African American GFR(CKD) 77 (>60 ml/min/1.73 sqM)
[2023-11-15 10:19] LABS: INR 1.1 (<1.2); Prothrombin Time 11.7 sec (10.0-12.5)
[2023-11-15] MEDS: ALBUMIN HUMAN 25% 50 ML in EMPTY BAG 1 BAG IVPB SCH (10:34)
[2023-11-15 11:02] VITALS: BP 111/70; PULSE 66
--- NOTE | 2023-11-15 11:49 | US ---
EXAMINATION TYPE: US paracentesis abd w/image DATE OF EXAM: 11/15/2023 10:28 AM CLINICAL INDICATION:Female, 42 years old with history of R10.9 UNSPEC ABDOMINAL PAIN; COMPARISON: 10/18/2023 ATTENDING: Dr. Anselmo Heath PROCEDURE: Informed consent was obtained. The risks of the procedure were extensively explained incl uding risk of damage to surrounding bowel with perforation and need for additional procedures. Proced ure was performed in the ultrasound procedure suite. Ultrasound imaging of the abdomen demonstrate as citic fluid. An appropriate access site was localized to the right lower abdomen. Timeout was taken p er protocol. The skin was prepped and draped in the usual sterile fashion and then locally anesthetiz ed with 1% lidocaine. The peritoneal cavity was then accessed via a 5-Kenyan one-step needle/cathete r. Approximately 4600 cc of clear straw-colored fluid was obtained. Postprocedural imaging of the a bdomen demonstrate a minimal amount of abdominal fluid. Patient tolerated procedure well without immediate complication. Hemostasis at the procedural site w as obtained with a sterile bandage placed. The patient was monitored in the holding area following th e procedure and was subsequently discharged in stable condition. IMPRESSION: Ultrasound guided paracentesis, with approximately 4600 cc of clear straw-colored fluid drained. No immediate complications were evident.
== END 2023-11-15 11:05 | disposition home or self-care (01) ==
LOC: RADPROMAIN 08:43
PROVIDERS: ATTEND Family Medicine
DX: R18.8 Other ascites (principal)
CPT/HCPCS: 36415; 49083; 82565; 85049; 85610

== ENCOUNTER 2023-11-21 09:27 | Day surgery (SDC) | payer MEDICARE, OTHER ==
[2023-11-21 10:05] LABS: Mean Platelet Volume 7.8; Platelet Count 255 k/uL (150-450)
[2023-11-21 10:10] LABS: INR 1.1 (<1.2); Prothrombin Time 11.8 sec (10.0-12.5)
[2023-11-21 10:14] LABS: African American GFR (CKD) 81 (>60 ml/min/1.73 sqM); Anion Gap 5 mmol/L; Blood Urea Nitrogen 17 mg/dL (7-17); Calcium 8.8 mg/dL (8.4-10.2); Carbon Dioxide 26 mmol/L (22-30); Chloride 106 mmol/L (98-107); Glucose 79 mg/dL (74-99); Non-African American GFR(CKD) 70 (>60 ml/min/1.73 sqM); Potassium 4.2 mmol/L (3.5-5.1); Sodium 137 mmol/L (137-145)
[2023-11-21 10:23] LABS: NT-Pro-B-Type Natriuretic Pept 4860 pg/mL
[2023-11-21 10:24] VITALS: PULSE 50; RESP 16; TEMP 97.9
[2023-11-21 11:09] VITALS: BP 124/66
--- NOTE | 2023-11-21 11:50 | US ---
Ultrasound-guided paracentesis. DATE OF EXAM: 11/21/2023 CLINICAL HISTORY: Ascites The procedure was discussed with the patient. The risks, complications, benefits, and alternatives we re discussed and any questions were answered. Informed consent was obtained. The patient was placed s upine on the ultrasound table and prepped and draped in the usual sterile fashion. All elements of maximal barrier technique were utilized. Under ultrasound guidance, access into the right lower quadrant was obtained, via the paracentesis catheter system and direct ultrasound guidanc e. Approximately 4.4 liters of straw-colored fluid was removed. The patient was stable throughout the pr ocedure and remained stable upon discharge from Department of Radiology. IMPRESSION: Successful paracentesis under ultrasound guidance.
== END 2023-11-21 11:19 | disposition home or self-care (01) ==
LOC: RADPROMAIN 09:27
PROVIDERS: ATTEND Family Medicine
DX: R18.8 Other ascites (principal)
CPT/HCPCS: 36415; 49083; 80048; 83880; 85049; 85610

== ENCOUNTER 2023-11-28 08:14 | Day surgery (SDC) | payer MEDICARE, OTHER ==
[2023-11-28 10:18] LABS: Mean Platelet Volume 7.5; Platelet Count 210 k/uL (150-450)
[2023-11-28 10:30] LABS: INR 1.1 (<1.2); Prothrombin Time 11.8 sec (10.0-12.5)
[2023-11-28 10:40] LABS: African American GFR (CKD) 79 (>60 ml/min/1.73 sqM); Non-African American GFR(CKD) 69 (>60 ml/min/1.73 sqM)
[2023-11-28 10:47] VITALS: BP 105/64; PULSE 55; RESP 18
--- NOTE | 2023-11-28 13:16 | US ---
EXAMINATION TYPE: US paracentesis abd w/image DATE OF EXAM: 11/28/2023 CLINICAL HISTORY: 42-year-old female R1 8.8, other ascites The procedure was discussed with the patient. The risks, complications, benefits, and alternatives we re discussed and any questions were answered. Informed consent was obtained. The patient was placed s upine on the ultrasound table and prepped and draped in the usual sterile fashion. All elements of maximal barrier technique were utilized. Ultrasound was utilized to determine the precise skin entry site along the right lower quadrant. A 5 Estonian One-Step catheter and trocar technique was utilized to access the ascites collection under direct ultrasound guidance. Approximately 4.6 liters of clear, straw-colored fluid was removed. Catheter was removed, hemostasis obtained, and a dressing placed. The patient was stable throughout the procedure and remained stable upon discharge from Department of Radiology. IMPRESSION: Successful therapeutic paracentesis under ultrasound guidance. 4.6 L of fluid removed.
[2023-11-28] MEDS: ALBUMIN HUMAN 25% 50 ML in EMPTY BAG 1 BAG IVPB SCH (15:56)
== END 2023-11-28 11:35 | disposition home or self-care (01) ==
LOC: RADPROMAIN 08:14
PROVIDERS: ATTEND Family Medicine
DX: R18.8 Other ascites (principal)
CPT/HCPCS: 36415; 49083; 82565; 85049; 85610

== ENCOUNTER → 2023-11-28 | Outpatient (CLI) | payer MEDICARE, OTHER ==
--- NOTE | 2023-11-28 14:46 | US ---
EXAMINATION TYPE: US abdomen complete DATE OF EXAM: 11/28/2023 COMPARISON: NONE CLINICAL INDICATION: Female, 42 years old with history of R10.12 ABD PAIN; Liver disease has para wee ky pain LUQ TECHNIQUE: Multiple sonographic images of the abdomen are obtained. 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 Gallbladder: no stones seen Evidence for sonographic Pham's sign: no CBD: wnl Spleen: Spleenomegaly Right Kidney: No hydronephrosis or masses seen Left Kidney: No hydronephrosis or masses seen Upper IVC: wnl Abd Aorta: wnl IMPRESSION: 1. Hepatomegaly with a small amount of ascites. Correlate for underlying hepatocellular disease. 2. Splenomegaly measuring 16 cm.
== END | disposition home or self-care (01) ==
LOC: RADUSWWP 08:26
PROVIDERS: ATTEND Family Medicine
DX: R10.12 Left upper quadrant pain
CPT/HCPCS: 76700

== ENCOUNTER 2023-12-05 08:21 | Day surgery (SDC) | payer MEDICARE, OTHER ==
[2023-12-05 09:29] LABS: Mean Platelet Volume 7.5; Platelet Count 178 k/uL (150-450)
[2023-12-05 09:30] LABS: INR 1.1 (<1.2); Prothrombin Time 11.7 sec (10.0-12.5)
[2023-12-05 09:31] LABS: African American GFR (CKD) 83 (>60 ml/min/1.73 sqM); Non-African American GFR(CKD) 72 (>60 ml/min/1.73 sqM)
[2023-12-05 09:48] VITALS: RESP 20; TEMP 97.9
[2023-12-05] MEDS: ALBUMIN HUMAN 25% 50 ML in EMPTY BAG 1 BAG IVPB SCH (10:18)
[2023-12-05 11:06] VITALS: BP 127/72; PULSE 58
--- NOTE | 2023-12-05 14:02 | US ---
EXAMINATION TYPE: US paracentesis abd w/image DATE OF EXAM: 12/05/2023 9:36 AM CLINICAL INDICATION:Female, 43 years old with history of PARACENTISIS R18.8; COMPARISON: 11/28/2023 ATTENDING: Dr. Anselmo Heath PROCEDURE: Informed consent was obtained. The risks of the procedure were extensively explained incl uding risk of damage to surrounding bowel with perforation and need for additional procedures. Proced ure was performed in the ultrasound procedure suite. Ultrasound imaging of the abdomen demonstrate as citic fluid. An appropriate access site was localized to the right lower abdomen. Timeout was taken p er protocol. The skin was prepped and draped in the usual sterile fashion and then locally anesthetiz ed with 1% lidocaine. The peritoneal cavity was then accessed via a 5-Arabic one-step needle/cathete r. Approximately 5200 cc of clear straw-colored fluid was obtained. Samples were sent to the lab for analysis. Postprocedural imaging of the abdomen demonstrate a minimal amount of abdominal fluid. Patient tolerated procedure well without immediate complication. Hemostasis at the procedural site w as obtained with a sterile bandage placed. The patient was monitored in the holding area following th e procedure and was subsequently discharged in stable condition. IMPRESSION: Ultrasound guided paracentesis, with approximately 5200 cc of clear straw-colored fluid drained. Pa thology results pending. No immediate complications were evident. [facility], , 12/05/2023 2:00 PM
[2023-12-05 16:43] LABS: Appearance,BF Clear (Clear)
[2023-12-05 18:10] LABS: LDH, Body Fluid Source Ascites; T. Protein, Body Fluid Source Ascites; Total Protein, Body Fluid 2880 mg/dL
== END 2023-12-05 11:00 | disposition home or self-care (01) ==
LOC: RADPROMAIN 08:21
PROVIDERS: ATTEND Family Medicine
DX: R18.8 Other ascites (principal)
CPT/HCPCS: 36415; 49083; 82565; 83615; 84157; 85049; 85610; 88108; 88305; 89050

== ENCOUNTER 2023-12-19 08:49 | Day surgery (SDC) | payer MEDICARE, OTHER ==
[2023-12-19 09:39] VITALS: TEMP 98
[2023-12-19 09:51] LABS: Mean Platelet Volume 8.9; Platelet Count 203 k/uL (150-450)
[2023-12-19 09:55] LABS: Prothrombin Time 11.1 sec (10.0-12.5)
[2023-12-19 10:03] LABS: African American GFR (CKD) >90 (>60 ml/min/1.73 sqM); Non-African American GFR(CKD) >90 (>60 ml/min/1.73 sqM)
[2023-12-19] MEDS: ALBUMIN HUMAN 25% 50 ML in EMPTY BAG 1 BAG IVPB SCH (10:52)
[2023-12-19 11:14] VITALS: BP 168/86; PULSE 92; RESP 15
--- NOTE | 2023-12-20 10:36 | US ---
EXAMINATION TYPE: US paracentesis abd w/image DATE OF EXAM: 12/19/2023 10:34 AM CLINICAL INDICATION:Female, 43 years old with history of ascities; COMPARISON: Prior paracentesis ATTENDING: Dr. Anselmo Heath PROCEDURE: Informed consent was obtained. The risks of the procedure were extensively explained incl uding risk of damage to surrounding bowel with perforation and need for additional procedures. Proced ure was performed in the ultrasound procedure suite. Ultrasound imaging of the abdomen demonstrate as citic fluid. An appropriate access site was localized to the right lower abdomen. Timeout was taken p er protocol. The skin was prepped and draped in the usual sterile fashion and then locally anesthetiz ed with 1% lidocaine. The peritoneal cavity was then accessed via a 5-Armenian one-step needle/cathete r. Approximately 5300 cc of clear straw-colored fluid was obtained. Postprocedural imaging of the ab domen demonstrate a minimal amount of abdominal fluid. Patient tolerated procedure well without immediate complication. Hemostasis at the procedural site w as obtained with a sterile bandage placed. The patient was monitored in the holding area following th e procedure and was subsequently discharged in stable condition. IMPRESSION: Ultrasound guided paracentesis, with approximately 5300 cc of clear straw-colored fluid drained. No immediate complications were evident. [facility], , 12/20/2023 10:34 AM
== END 2023-12-19 11:17 | disposition home or self-care (01) ==
LOC: RADPROMAIN 08:49
PROVIDERS: ATTEND Family Medicine
DX: R18.8 Other ascites (principal)
CPT/HCPCS: 36415; 49083; 82565; 85049; 85610

== ENCOUNTER 2023-12-26 08:40 | Day surgery (SDC) | payer MEDICARE, OTHER ==
[2023-12-26 09:47] VITALS: RESP 16; TEMP 98.1
[2023-12-26 09:57] LABS: African American GFR (CKD) >90 (>60 ml/min/1.73 sqM); Non-African American GFR(CKD) 82 (>60 ml/min/1.73 sqM)
[2023-12-26 09:59] LABS: Mean Platelet Volume 7.2; Platelet Count 171 k/uL (150-450)
[2023-12-26 10:04] LABS: Prothrombin Time 11.1 sec (10.0-12.5)
[2023-12-26] MEDS: ALBUMIN HUMAN 25% 50 ML in EMPTY BAG 1 BAG IVPB SCH (10:19)
[2023-12-26 11:23] VITALS: BP 141/80; PULSE 63
--- NOTE | 2023-12-26 11:34 | US ---
EXAMINATION TYPE: US paracentesis abd w/image DATE OF EXAM: 12/26/2023 CLINICAL HISTORY: 43-year-old female R1 8.8, other ascites, here for routine weekly paracentesis The procedure was discussed with the patient. The risks, complications, benefits, and alternatives we re discussed and any questions were answered. Informed consent was obtained. The patient was placed s upine on the ultrasound table and prepped and draped in the usual sterile fashion. All elements of maximal barrier technique were utilized. Ultrasound was utilized to determine the precise skin entry site along the right lower quadrant. Utilizing trocar technique, a 6 Estonian safety ZENTesis catheter system was utilized to access the asc ites collection from the right lower quadrant without difficulty. Approximately 5.9 liters of clear, straw-colored fluid was removed. Catheter was removed, hemostasis obtained, and a dressing placed. The patient was stable throughout the procedure and remained stable upon discharge from Department of Radiology. IMPRESSION: Successful therapeutic paracentesis under ultrasound guidance. 4.5 L of fluid removed. [facility], , 12/26/2023 11:31 AM
== END 2023-12-26 11:28 | disposition home or self-care (01) ==
LOC: RADPROMAIN 08:40
PROVIDERS: ATTEND Family Medicine
DX: R18.8 Other ascites (principal)
CPT/HCPCS: 36415; 49083; 82565; 85049; 85610

== ENCOUNTER 2024-01-02 08:56 | Day surgery (SDC) | payer MEDICARE, OTHER ==
[2024-01-02] MEDS ORDERED: ALBUMIN HUMAN 25% 50 ML in EMPTY BAG 1 BAG IVPB SCH (09:45)
[2024-01-02 10:06] LABS: Mean Platelet Volume 7.9; Platelet Count 198 k/uL (150-450)
[2024-01-02 10:18] LABS: African American GFR (CKD) >90 (>60 ml/min/1.73 sqM); Non-African American GFR(CKD) 79 (>60 ml/min/1.73 sqM)
[2024-01-02 10:27] LABS: INR 1.1 (<1.2)
[2024-01-02 10:34] VITALS: RESP 18; TEMP 98.1
--- NOTE | 2024-01-02 11:25 | US ---
Ultrasound-guided paracentesis. DATE OF EXAM: 01/02/2024 CLINICAL HISTORY: Ascites The procedure was discussed with the patient. The risks, complications, benefits, and alternatives we re discussed and any questions were answered. Informed consent was obtained. The patient was placed s upine on the ultrasound table and prepped and draped in the usual sterile fashion. All elements of maximal barrier technique were utilized. Under ultrasound guidance, access into the right lower quadrant was obtained, via the paracentesis catheter system and direct ultrasound guidanc e. Approximately 4.7 liters of straw-colored fluid was removed. The patient was stable throughout the pr ocedure and remained stable upon discharge from Department of Radiology. IMPRESSION: Successful paracentesis under ultrasound guidance. [facility], , 01/02/2024 11:23 AM
[2024-01-02 12:02] VITALS: PULSE 100
[2024-01-02 12:05] VITALS: BP 168/79
== END 2024-01-02 11:30 | disposition home or self-care (01) ==
LOC: RADPROMAIN 08:56
PROVIDERS: ATTEND Family Medicine
DX: R18.8 Other ascites (principal)
CPT/HCPCS: 36415; 49083; 82565; 85049; 85610

== ENCOUNTER 2024-01-15 09:04 | Day surgery (SDC) | payer MEDICARE, OTHER ==
[2024-01-15 09:59] LABS: Platelet Count 198 k/uL (150-450)
[2024-01-15 10:11] LABS: African American GFR (CKD) 86 (>60 ml/min/1.73 sqM); Non-African American GFR(CKD) 74 (>60 ml/min/1.73 sqM)
[2024-01-15 10:12] LABS: Prothrombin Time 10.7 sec (10.0-12.5)
[2024-01-15 10:38] VITALS: RESP 16; TEMP 98.2
[2024-01-15] MEDS: ALBUMIN HUMAN 25% 50 ML in EMPTY BAG 1 BAG IVPB SCH (11:15)
[2024-01-15 11:21] VITALS: BP 163/89; PULSE 90
--- NOTE | 2024-01-15 14:47 | US ---
EXAMINATION TYPE: US paracentesis abd w/image DATE OF EXAM: 01/15/2024 10:40 AM COMPARISON: prior paracentesis. CLINICAL INDICATION:Female, 43 years old with history of R18.8 OTHER ASCITES; ATTENDING: Dr. Anselmo Heath PROCEDURE: Informed consent was obtained. The risks of the procedure were extensively explained incl uding risk of damage to surrounding bowel with perforation and need for additional procedures. Proced ure was performed in the ultrasound procedure suite. Ultrasound imaging of the abdomen demonstrate as citic fluid. An appropriate access site was localized to the right lower abdomen. Timeout was taken p er protocol. The skin was prepped and draped in the usual sterile fashion and then locally anesthetiz ed with 1% lidocaine. The peritoneal cavity was then accessed via a 5-Icelandic one-step needle/cathete r. Approximately 3300 cc of clear straw-colored fluid was obtained. Samples were sent to the lab for analysis. Postprocedural imaging of the abdomen demonstrate a minimal amount of abdominal fluid. Patient tolerated procedure well without immediate complication. Hemostasis at the procedural site w as obtained with a sterile bandage placed. The patient was monitored in the holding area following th e procedure and was subsequently discharged in stable condition. IMPRESSION: Ultrasound guided paracentesis, with approximately 3300 cc of clear straw-colored fluid drained. Path ology results pending. No immediate complications were evident. [facility], , 01/15/2024 2:45 PM
[2024-01-16 04:41] LABS: Appearance,BF Clear (Clear)
[2024-01-16 05:50] LABS: LDH, Body Fluid Source Ascites; T. Protein, Body Fluid Source Ascites; Total Protein, Body Fluid 3550 mg/dL
== END 2024-01-15 11:23 | disposition home or self-care (01) ==
LOC: RADPROMAIN 09:04
PROVIDERS: ATTEND Family Medicine
DX: R18.8 Other ascites (principal)
CPT/HCPCS: 36415; 49083; 82565; 83615; 84157; 85049; 85610; 88108; 88305; 89050

== ENCOUNTER → 2024-01-30 | Day surgery (SDC) | payer MEDICARE, OTHER ==
[2024-01-30 08:57] LABS: Mean Platelet Volume 8.1; Platelet Count 205 k/uL (150-450)
[2024-01-30 09:08] LABS: African American GFR (CKD) 83 (>60 ml/min/1.73 sqM); INR 1.1 (<1.2); Non-African American GFR(CKD) 72 (>60 ml/min/1.73 sqM); Prothrombin Time 11.6 sec (10.0-12.5)
[2024-01-30 09:42] VITALS: RESP 16; TEMP 98.1
[2024-01-30 10:36] VITALS: BP 156/83; PULSE 82
[2024-01-30] MEDS: ALBUMIN HUMAN 25% 50 ML in EMPTY BAG 1 BAG IVPB SCH (10:42)
--- NOTE | 2024-01-30 17:05 | US ---
EXAMINATION TYPE: US paracentesis abd w/image DATE OF EXAM: 01/30/2024 9:52 AM COMPARISON: prior paracentesis. CLINICAL INDICATION:Female, 43 years old with history of R18.8 ascities; , ascites ATTENDING: Dr. Anselmo Heath PROCEDURE: Informed consent was obtained. The risks of the procedure were extensively explained incl uding risk of damage to surrounding bowel with perforation and need for additional procedures. Proced ure was performed in the ultrasound procedure suite. Ultrasound imaging of the abdomen demonstrate as citic fluid. An appropriate access site was localized to the right lower abdomen. Timeout was taken p er protocol. The skin was prepped and draped in the usual sterile fashion and then locally anesthetiz ed with 1% lidocaine. The peritoneal cavity was then accessed via a 5-Belarusian one-step needle/cathete r. Approximately 4800 mL of clear straw-colored fluid was obtained. Postprocedural imaging of the a bdomen demonstrate a minimal amount of abdominal fluid. Patient tolerated procedure well without immediate complication. Hemostasis at the procedural site w as obtained with a sterile bandage placed. The patient was monitored in the holding area following th e procedure and was subsequently discharged in stable condition. IMPRESSION: Ultrasound guided paracentesis, with approximately 4800 mL of clear straw-colored fluid drained. Path ology results pending. No immediate complications were evident. [facility], , 01/30/2024 5:03 PM
== END ==
LOC: RADPROMAIN 08:14
PROVIDERS: ATTEND Family Medicine
DX: R18.8 Other ascites (principal)
CPT/HCPCS: 36415; 49083; 82565; 85049; 85610

== ENCOUNTER 2024-02-08 13:05 | Day surgery (SDC) | payer MEDICARE, OTHER ==
[2024-02-08 13:49] LABS: Basophils % (A) 0 %; Eosinophils # (A) 0.2 k/uL (0-0.7); Eosinophils % (A) 3 %; HCT 39.1 % (34.0-46.0); HGB 12.1 gm/dL (11.4-16.0); Hypochromasia Moderate; Lymphocytes % (A) 18 %; MCH 25.5 pg (25.0-35.0); MCV 82.3 fL (80.0-100.0); Monocytes # (A) 0.3 k/uL (0-1.0); Monocytes % (A) 5 %; Neutrophils # (A) 3.8 k/uL (1.3-7.7); Neutrophils % (A) 71 %; Platelet Count 201 k/uL (150-450); RBC 4.75 m/uL (3.80-5.40); RDW 15.2 % (11.5-15.5); WBC 5.3 k/uL (3.8-10.6)
[2024-02-08 14:08] LABS: ALT 13 U/L (4-34); AST 17 U/L (14-36); African American GFR (CKD) 88 (>60 ml/min/1.73 sqM); Albumin 3.5 g/dL (3.5-5.0); Alkaline Phosphatase 88 U/L (38-126); Anion Gap 4 mmol/L; Blood Urea Nitrogen 18 mg/dL (7-17); Calcium 8.5 mg/dL (8.4-10.2); Carbon Dioxide 28 mmol/L (22-30); Chloride 106 mmol/L (98-107); Glucose 116 mg/dL (74-99); Non-African American GFR(CKD) 76 (>60 ml/min/1.73 sqM); Sodium 138 mmol/L (137-145); Total Bilirubin 0.9 mg/dL (0.2-1.3); Total Protein 6.4 g/dL (6.3-8.2); Uric Acid 5.9 mg/dL (3.7-7.4)
[2024-02-08 14:26] LABS: T4, Free (Free Thyroxine) 1.18 ng/dL (0.78-2.19)
[2024-02-08 14:28] LABS: Partial Thromboplastin Time 27.6 sec (22.0-30.0); Prothrombin Time 11.4 sec (10.0-12.5)
[2024-02-08 14:34] VITALS: RESP 18; TEMP 98.8
[2024-02-08 14:44] VITALS: PULSE 98
[2024-02-08] MEDS: ALBUMIN HUMAN 25% 50 ML in EMPTY BAG 1 BAG IVPB ONE (14:49)
[2024-02-08] MEDS: ALBUMIN HUMAN 25% 50 ML in EMPTY BAG 1 BAG IVPB SCH (15:46)
[2024-02-08 15:49] VITALS: BP 169/119
--- NOTE | 2024-02-08 18:19 | US ---
EXAMINATION TYPE: US paracentesis abd w/image DATE OF EXAM: 02/08/2024 2:22 PM COMPARISON: prior paracentesis. CLINICAL INDICATION:Female, 43 years old with history of R18.8 OTHER ASCITES; , ascites ATTENDING: Dr. Anselmo Heath PROCEDURE: Informed consent was obtained. The risks of the procedure were extensively explained incl uding risk of damage to surrounding bowel with perforation and need for additional procedures. Proced ure was performed in the ultrasound procedure suite. Ultrasound imaging of the abdomen demonstrate as citic fluid. An appropriate access site was localized to the right lower abdomen. Timeout was taken p er protocol. The skin was prepped and draped in the usual sterile fashion and then locally anesthetiz ed with 1% lidocaine. The peritoneal cavity was then accessed via a 5-Luxembourgish one-step needle/cathete r. Approximately 6300 mL of clear straw-colored fluid was obtained. Postprocedural imaging of the ab domen demonstrate a minimal amount of abdominal fluid. Patient tolerated procedure well without immediate complication. Hemostasis at the procedural site w as obtained with a sterile bandage placed. The patient was monitored in the holding area following th e procedure and was subsequently discharged in stable condition. IMPRESSION: Ultrasound guided paracentesis, with approximately 6300 mL of clear straw-colored fluid drained. No i mmediate complications were evident. [facility], , 02/08/2024 6:16 PM
[2024-02-08 21:21] LABS: Chol/HDL Ratio 2.87 Ratio; LDL Cholesterol,Calculated 99.9 mg/dL (0.0-131.0); VLDL Calculation 10.34 mg/dL (5.00-40.00)
== END 2024-02-08 15:50 | disposition home or self-care (01) ==
LOC: RADPROMAIN 13:05
PROVIDERS: ATTEND Family Medicine
DX: R18.8 Other ascites (principal); Z85.72 Personal history of non-Hodgkin lymphomas
CPT/HCPCS: 36415; 49083; 80053; 80061; 82306; 84439; 84443; 84550; 85025; 85610; 85730; 88108; 88305

== ENCOUNTER 2024-02-14 08:28 | Day surgery (SDC) | payer MEDICARE, OTHER ==
[2024-02-14 09:14] VITALS: RESP 12; TEMP 98.2
[2024-02-14 09:34] LABS: Basophils % (A) 0 %; Eosinophils # (A) 0.1 k/uL (0-0.7); Eosinophils % (A) 2 %; HCT 42.4 % (34.0-46.0); HGB 12.9 gm/dL (11.4-16.0); Hypochromasia Moderate; Lymphocytes % (A) 16 %; MCH 25.1 pg (25.0-35.0); MCHC 30.5 g/dL (31.0-37.0); MCV 82.4 fL (80.0-100.0); Mean Platelet Volume 8.3; Monocytes # (A) 0.3 k/uL (0-1.0); Monocytes % (A) 5 %; Neutrophils # (A) 4.4 k/uL (1.3-7.7); Neutrophils % (A) 74 %; Platelet Count 224 k/uL (150-450); RBC 5.14 m/uL (3.80-5.40)
[2024-02-14 09:42] LABS: ALT 13 U/L (4-34); AST 20 U/L (14-36); African American GFR (CKD) 85 (>60 ml/min/1.73 sqM); Albumin 3.6 g/dL (3.5-5.0); Alkaline Phosphatase 100 U/L (38-126); Anion Gap 8 mmol/L; Blood Urea Nitrogen 15 mg/dL (7-17); Calcium 8.5 mg/dL (8.4-10.2); Carbon Dioxide 26 mmol/L (22-30); Chloride 103 mmol/L (98-107); Glucose 152 mg/dL (74-99); Non-African American GFR(CKD) 74 (>60 ml/min/1.73 sqM); Sodium 137 mmol/L (137-145); Total Bilirubin 0.8 mg/dL (0.2-1.3); Total Protein 6.6 g/dL (6.3-8.2); Uric Acid 5.8 mg/dL (3.7-7.4)
[2024-02-14] MEDS: ALBUMIN HUMAN 25% 50 ML in EMPTY BAG 1 BAG IVPB SCH (10:00)
[2024-02-14 10:27] VITALS: BP 157/78; PULSE 81
[2024-02-14 10:44] LABS: T4, Free (Free Thyroxine) 1.34 ng/dL (0.78-2.19)
--- NOTE | 2024-02-14 12:20 | US ---
EXAMINATION TYPE: US paracentesis abd w/image DATE OF EXAM: 02/14/2024 10:07 AM COMPARISON: None. Previous Paracentesis CLINICAL INDICATION: Female, 43 years old with history of R18.8 OTHER ASCITES; , ascites TECHNIQUE/FINDINGS: The procedure was discussed with the patient. The risks, complications, benefits, and alternatives we re discussed and any questions were answered. Informed consent was obtained. The patient was placed s upine on the ultrasound table and prepped and draped in the usual sterile fashion. All elements of maximal barrier technique were utilized. Under ultrasound guidance, access into the right lower quadrant was obtained, via the paracentesis catheter system and direct ultrasound guidanc e. Approximately 5.2 liters of straw-colored fluid was removed. The patient was stable throughout the pr ocedure and remained stable upon discharge from Department of Radiology. IMPRESSION: Successful paracentesis under ultrasound guidance. [facility], , 02/14/2024 12:18 PM
[2024-02-14 13:38] LABS: INR 1.1 (<1.2); Prothrombin Time 11.7 sec (10.0-12.5)
[2024-02-14 17:21] LABS: Chol/HDL Ratio 3.15 Ratio; VLDL Calculation 13.66 mg/dL (5.00-40.00)
== END 2024-02-14 10:50 | disposition home or self-care (01) ==
LOC: RADPROMAIN 08:28
PROVIDERS: ATTEND Family Medicine
DX: R18.8 Other ascites (principal)
CPT/HCPCS: 84439; 80053; 80061; 84443; 84550; 85025; 85610; 82306; 36415; 49083; P9047

== ENCOUNTER 2024-02-20 08:22 | Day surgery (SDC) | payer MEDICARE, OTHER ==
[2024-02-20 09:13] LABS: Mean Platelet Volume 7.7; Platelet Count 213 k/uL (150-450)
[2024-02-20 09:27] LABS: INR 1.1 (<1.2); Prothrombin Time 11.4 sec (10.0-12.5)
[2024-02-20 09:50] LABS: African American GFR (CKD) 78 (>60 ml/min/1.73 sqM); Non-African American GFR(CKD) 67 (>60 ml/min/1.73 sqM)
[2024-02-20] MEDS: ALBUMIN HUMAN 25% 50 ML in EMPTY BAG 1 BAG IVPB SCH (10:05)
[2024-02-20 10:39] VITALS: TEMP 98.1
[2024-02-20 11:11] VITALS: BP 157/87; PULSE 78; RESP 18
--- NOTE | 2024-02-20 11:33 | US ---
EXAMINATION TYPE: US paracentesis abd w/image DATE OF EXAM: 02/20/2024 9:57 AM COMPARISON: prior paracentesis. CLINICAL INDICATION:Female, 43 years old with history of R18.8 ascities; , ascites ATTENDING: Dr. Anselmo Heath PROCEDURE: Informed consent was obtained. The risks of the procedure were extensively explained incl uding risk of damage to surrounding bowel with perforation and need for additional procedures. Proced ure was performed in the ultrasound procedure suite. Ultrasound imaging of the abdomen demonstrate as citic fluid. An appropriate access site was localized to the right lower abdomen. Timeout was taken p er protocol. The skin was prepped and draped in the usual sterile fashion and then locally anesthetiz ed with 1% lidocaine. The peritoneal cavity was then accessed via a 5-Slovenian one-step needle/cathete r. Approximately 5700 mL of clear straw-colored fluid was obtained. Postprocedural imaging of the ab domen demonstrate a minimal amount of abdominal fluid. Patient tolerated procedure well without immediate complication. Hemostasis at the procedural site w as obtained with a sterile bandage placed. The patient was monitored in the holding area following th e procedure and was subsequently discharged in stable condition. IMPRESSION: Ultrasound guided paracentesis, with approximately 5700 mL of clear straw-colored fluid drained. No immediate complications were evident. [facility], , 02/20/2024 11:30 AM
== END 2024-02-20 11:20 | disposition home or self-care (01) ==
LOC: RADPROMAIN 08:22
PROVIDERS: ATTEND Family Medicine
DX: R18.8 Other ascites (principal)
CPT/HCPCS: 82565; 85049; 85610; 36415; 49083; P9047

== ENCOUNTER 2024-02-27 07:54 | Day surgery (SDC) | payer MEDICARE, OTHER ==
[2024-02-27 08:50] VITALS: TEMP 98.1
[2024-02-27 08:53] LABS: Mean Platelet Volume 7.5; Platelet Count 189 k/uL (150-450)
[2024-02-27 09:10] LABS: African American GFR (CKD) 67 (>60 ml/min/1.73 sqM); Non-African American GFR(CKD) 58 (>60 ml/min/1.73 sqM)
[2024-02-27] MEDS: ALBUMIN HUMAN 25% 50 ML in EMPTY BAG 1 BAG IVPB SCH (09:32)
[2024-02-27 09:38] LABS: INR 1.1 (<1.2); Prothrombin Time 11.4 sec (10.0-12.5)
[2024-02-27 09:39] VITALS: RESP 16
[2024-02-27 10:36] VITALS: BP 155/88; PULSE 84
--- NOTE | 2024-02-27 10:58 | US ---
EXAMINATION TYPE: US paracentesis abd w/image DATE OF EXAM: 02/27/2024 9:44 AM COMPARISON: prior paracentesis. CLINICAL INDICATION:Female, 43 years old with history of ascities; , ascites ATTENDING: Dr. Anselmo Heath PROCEDURE: Informed consent was obtained. The risks of the procedure were extensively explained incl uding risk of damage to surrounding bowel with perforation and need for additional procedures. Proced ure was performed in the ultrasound procedure suite. Ultrasound imaging of the abdomen demonstrate as citic fluid. An appropriate access site was localized to the right lower abdomen. Timeout was taken p er protocol. The skin was prepped and draped in the usual sterile fashion and then locally anesthetiz ed with 1% lidocaine. The peritoneal cavity was then accessed via a 5-Hungarian one-step needle/cathete r. Approximately 5500 mL of clear straw-colored fluid was obtained. Postprocedural imaging of the ab domen demonstrate a minimal amount of abdominal fluid. Patient tolerated procedure well without immediate complication. Hemostasis at the procedural site w as obtained with a sterile bandage placed. The patient was monitored in the holding area following th e procedure and was subsequently discharged in stable condition. IMPRESSION: Ultrasound guided paracentesis, with approximately 5500 mL of clear straw-colored fluid drained. No i mmediate complications were evident. [facility], , 02/27/2024 10:56 AM
== END 2024-02-27 10:41 | disposition home or self-care (01) ==
LOC: RADPROMAIN 07:54
PROVIDERS: ATTEND Family Medicine
DX: R18.8 Other ascites (principal)
CPT/HCPCS: 82565; 85049; 85610; 36415; 49083; P9047

== ENCOUNTER 2024-03-06 07:56 | Day surgery (SDC) | payer MEDICARE, OTHER ==
[2024-03-06 09:23] VITALS: TEMP 98
[2024-03-06 09:34] VITALS: RESP 16
[2024-03-06 10:19] VITALS: BP 165/93; PULSE 80
--- NOTE | 2024-03-06 10:58 | US ---
EXAMINATION TYPE: US paracentesis abd w/image DATE OF EXAM: 03/06/2024 9:18 AM COMPARISON: prior paracentesis. CLINICAL INDICATION:Female, 43 years old with history of R18.8 Other Ascites; , ascites ATTENDING: Dr. Anselmo Heath PROCEDURE: Informed consent was obtained. The risks of the procedure were extensively explained incl uding risk of damage to surrounding bowel with perforation and need for additional procedures. Proced ure was performed in the ultrasound procedure suite. Ultrasound imaging of the abdomen demonstrate as citic fluid. An appropriate access site was localized to the right lower abdomen. Timeout was taken p er protocol. The skin was prepped and draped in the usual sterile fashion and then locally anesthetiz ed with 1% lidocaine. The peritoneal cavity was then accessed via a 5-Lithuanian one-step needle/cathete r. Approximately 6200 mL of clear straw-colored fluid was obtained. Samples were sent to the lab for analysis. Postprocedural imaging of the abdomen demonstrate a minimal amount of abdominal fluid. Patient tolerated procedure well without immediate complication. Hemostasis at the procedural site w as obtained with a sterile bandage placed. The patient was monitored in the holding area following th e procedure and was subsequently discharged in stable condition. IMPRESSION: Ultrasound guided paracentesis, with approximately 6200 mL of clear straw-colored fluid drained. Path ology results pending. No immediate complications were evident. [facility], , 03/06/2024 10:55 AM
== END 2024-03-06 10:19 | disposition home or self-care (01) ==
LOC: RADPROMAIN 07:56
PROVIDERS: ATTEND Family Medicine
DX: R18.8 Other ascites (principal)
CPT/HCPCS: 49083

== ENCOUNTER 2024-03-12 07:32 | Day surgery (SDC) | payer MEDICARE, OTHER ==
[2024-03-12 09:00] LABS: Platelet Count 202 k/uL (150-450)
[2024-03-12 09:01] VITALS: RESP 16; TEMP 98.2
[2024-03-12 09:05] LABS: INR 1.1 (<1.2); Prothrombin Time 12.3 sec (10.0-12.5)
[2024-03-12 09:18] LABS: African American GFR (CKD) 74 (>60 ml/min/1.73 sqM); Non-African American GFR(CKD) 64 (>60 ml/min/1.73 sqM)
[2024-03-12] MEDS: ALBUMIN HUMAN 25% 50 ML in EMPTY BAG 1 BAG IVPB SCH (09:52)
[2024-03-12 10:10] VITALS: BP 167/81; PULSE 94
--- NOTE | 2024-03-12 10:29 | US ---
EXAMINATION TYPE: US paracentesis abd w/image DATE OF EXAM: 03/12/2024 9:34 AM COMPARISON: None. Previous Paracentesis CLINICAL INDICATION: Female, 43 years old with history of R18.8 ascities; , ascites TECHNIQUE/FINDINGS: The procedure was discussed with the patient. The risks, complications, benefits, and alternatives we re discussed and any questions were answered. Informed consent was obtained. The patient was placed s upine on the ultrasound table and prepped and draped in the usual sterile fashion. All elements of maximal barrier technique were utilized. Under ultrasound guidance, access into the right lower quadrant was obtained, via the paracentesis catheter system and direct ultrasound guidanc e. Approximately 4.8 liters of straw-colored fluid was removed. The patient was stable throughout the pr ocedure and remained stable upon discharge from Department of Radiology. IMPRESSION: Successful paracentesis under ultrasound guidance. [facility], , 03/12/2024 10:27 AM
== END 2024-03-12 10:21 | disposition home or self-care (01) ==
LOC: RADPROMAIN 07:32
PROVIDERS: ATTEND Family Medicine
DX: R18.8 Other ascites (principal)
CPT/HCPCS: 36415; 49083; 82565; 85049; 85610

== ENCOUNTER 2024-03-19 08:18 | Day surgery (SDC) | payer MEDICARE, OTHER ==
[2024-03-19] MEDS ORDERED: ALBUMIN HUMAN 25% 50 ML in EMPTY BAG 1 BAG IVPB SCH (08:30)
[2024-03-19 09:23] LABS: Mean Platelet Volume 7.5; Platelet Count 217 k/uL (150-450); Prothrombin Time 11.1 sec (10.0-12.5)
[2024-03-19 09:31] LABS: African American GFR (CKD) 67 (>60 ml/min/1.73 sqM); Non-African American GFR(CKD) 58 (>60 ml/min/1.73 sqM)
[2024-03-19 10:07] VITALS: RESP 18; TEMP 98.1
[2024-03-19 11:40] VITALS: BP 145/80; PULSE 65
--- NOTE | 2024-03-19 12:47 | US ---
EXAMINATION TYPE: US paracentesis abd w/image DATE OF EXAM: 03/19/2024 CLINICAL HISTORY: 43-year-old female ascites, routine outpatient ultrasound guided paracentesis The procedure was discussed with the patient. The risks, complications, benefits, and alternatives we re discussed and any questions were answered. Informed consent was obtained. The patient was placed s upine on the ultrasound table and prepped and draped in the usual sterile fashion. All elements of maximal barrier technique were utilized. Ultrasound was utilized to determine the precise skin entry site along the left lower quadrant. A 5 Pakistani One-Step catheter and trocar technique was utilized to access the ascites collection under direct ultrasound guidance. Approximately 3.6 liters of clear, straw-colored fluid was removed. Catheter was removed, hemostasis obtained, and a dressing placed. The patient was stable throughout the procedure and remained stable upon discharge from Department of Radiology. IMPRESSION: Successful therapeutic paracentesis under ultrasound guidance. 3.6 L of fluid removed. [facility], , 03/19/2024 12:45 PM
== END 2024-03-19 11:00 | disposition home or self-care (01) ==
LOC: RADPROMAIN 08:18
PROVIDERS: ATTEND Family Medicine
DX: R18.8 Other ascites (principal)
CPT/HCPCS: 36415; 49083; 82565; 85049; 85610

== ENCOUNTER 2024-03-26 07:39 | Day surgery (SDC) | payer MEDICARE, OTHER ==
[2024-03-26 08:50] VITALS: BP 172/94; PULSE 85; RESP 12; TEMP 97.8
[2024-03-26 08:58] LABS: Mean Platelet Volume 7.6; Platelet Count 210 k/uL (150-450)
[2024-03-26 09:05] LABS: African American GFR (CKD) 83 (>60 ml/min/1.73 sqM); Non-African American GFR(CKD) 72 (>60 ml/min/1.73 sqM); Prothrombin Time 11.2 sec (10.0-12.5)
[2024-03-26] MEDS: ALBUMIN HUMAN 25% 50 ML in EMPTY BAG 1 BAG IVPB SCH (10:15)
--- NOTE | 2024-03-26 11:35 | US ---
EXAMINATION TYPE: US discontinued paracentesis DATE OF EXAM: 03/26/2024 10:13 AM COMPARISON: prior paracentesis. CLINICAL INDICATION:Female, 43 years old with history of R18.8 OTHER ASCITES; , ascites ATTENDING: Dr. Anselmo Heath PROCEDURE: Informed consent was obtained. The risks of the procedure were extensively explained incl uding risk of damage to surrounding bowel with perforation and need for additional procedures. Proced ure was performed in the ultrasound procedure suite. Ultrasound imaging of the abdomen demonstrate sm all amount of abdominal fluid. The procedure was canceled at that time. Patient elected to try again in one week. IMPRESSION: Canceled ultrasound-guided paracentesis will retry in one week. Patient was agreeable to this plan. [facility], , 03/26/2024 11:32 AM
== END 2024-03-26 09:40 | disposition home or self-care (01) ==
LOC: RADPROMAIN 07:39
PROVIDERS: ATTEND Family Medicine
DX: R18.8 Other ascites (principal); Z53.8 Procedure and treatment not carried out for other reasons
CPT/HCPCS: 36415; 76705; 82565; 85049; 85610

== ENCOUNTER 2024-04-02 08:06 | Day surgery (SDC) | payer MEDICARE, OTHER ==
[2024-04-02 08:56] LABS: Mean Platelet Volume 7.1; Platelet Count 210 k/uL (150-450)
[2024-04-02 09:07] LABS: Prothrombin Time 11.5 sec (10.0-12.5)
[2024-04-02 09:08] LABS: African American GFR (CKD) 83 (>60 ml/min/1.73 sqM); Non-African American GFR(CKD) 72 (>60 ml/min/1.73 sqM)
[2024-04-02 09:09] VITALS: RESP 16; TEMP 97.9
[2024-04-02 10:48] VITALS: BP 146/76; PULSE 76
--- NOTE | 2024-04-02 12:20 | US ---
EXAMINATION TYPE: US paracentesis abd w/image DATE OF EXAM: 04/02/2024 CLINICAL HISTORY: Other ascites. Recurrent swelling. The procedure was discussed with the patient. The risks, complications, benefits, and alternatives we re discussed and any questions were answered. Informed consent was obtained. The patient was placed s upine on the ultrasound table and prepped and draped in the usual sterile fashion. All elements of maximal barrier technique were utilized. A 5 [place] One-Step catheter and trocar technique was utilized to access the ascites collection right lower quadrant under direct ultrasound guidance. Approximately 2.5 liters of clear, straw-colored fluid was removed. Catheter was removed, hemostasis obtained, and a dressing placed. The patient was stable throughout the procedure and remained stable upon discharge from Department of Radiology. IMPRESSION: Successful diagnostic and therapeutic paracentesis under ultrasound guidance. 2.5L of fluid removed. Some fluid saved and sent to lab for further analysis as ordered. [facility], , 04/02/2024 12:17 PM
[2024-04-02 16:49] LABS: Appearance,BF Slightly Hazy (Clear)
[2024-04-02 19:48] LABS: LDH, Body Fluid Source Ascites; T. Protein, Body Fluid Source Ascites; Total Protein, Body Fluid >3600 mg/dL
== END 2024-04-02 10:50 | disposition home or self-care (01) ==
LOC: RADPROMAIN 08:06
PROVIDERS: ATTEND Family Medicine
DX: R18.8 Other ascites (principal)
CPT/HCPCS: 36415; 49083; 82565; 83615; 84157; 85049; 85610; 88108; 88305; 88341; 89050